=== PATIENT | female | born 1945 | race Caucasian/White ===

== ENCOUNTER 2023-07-29 19:16 | Emergency (ER) | payer MEDICARE, SELFPAY ==
[2023-07-29 19:19] VITALS: BP 170/97; PULSE 62; RESP 16; TEMP 36.8; O2SAT 100; BMI 25.4
--- NOTE | 2023-07-29 19:29 | CT_ITS ---
The [address] [address] Patient Name: DEXTER MCCARTHY MRN: [id number] date: 1945 Sex: F Assigned Patient Location: ED.MAIN Current Patient Location: ER Accession/Order Number: [id number] Exam Date: 07/29/2023 19:49 Report Date: 07/29/2023 20:18 At the request of: GLORIA BARKER Procedure: CT lumbar spine wo con EXAM: CT lumbar spine wo con HISTORY: fall, low back injury/pain COMPARISON: None. TECHNIQUE: Unenhanced axial CT of the lumbar spine is performed with coronal and sagittal reformats provided. FINDINGS: Grade 1 anterolisthesis at L4-5. Vertebral body heights are maintained. Vacuum disc phenomenon at L3-4 and L4-5. No acute fracture. Sacroiliac joints are maintained with moderate degenerative changes. Dense calcific atherosclerosis of the abdominal aorta and the splenic artery. Paraspinal soft tissues are within normal limits. Multilevel degenerative disc disease. Disc levels: T12-L1: Unremarkable. L1-2: Unremarkable. L2-3: Subtle disc bulge effaces the ventral thecal sac resulting in mild spinal canal narrowing. Bilateral facet arthrosis. Mild bilateral foraminal narrowing. L3-4: Bilateral facet arthrosis and hypertrophy of the ligament of flavum. Small disc bulge effaces the ventral thecal sac resulting in moderate severe spinal canal narrowing. There is mild left and [id number] right foraminal narrowing. L4-5: Grade 1 anterolisthesis. Bilateral facet arthrosis and hypertrophy and ligament flavum. Disc uncovering resulting in severe spinal canal narrowing and moderate bilateral foraminal narrowing. L5-S1: Disc bulge with bilateral facet arthrosis and hypertrophy of ligamentum flavum resulting in moderate severe spinal canal narrowing. There is mild left and moderate right foraminal narrowing. CT/CT lumbar spine wo con IMPRESSION: No acute osseous abnormality of the lumbar spine. Multilevel degenerative disc disease most severe at L4-5 where there is grade 1 anterolisthesis and discogenic coverage resulting in severe spinal canal narrowing. Electronically authenticated by: OLGA MERCADO Date: 07/29/2023 20:18
--- NOTE | 2023-07-29 19:31 | ED.BACK1 ---
HPI - Back Pain/Injury General Chief Complaint: Back Pain/Injury Stated Complaint: back pain Time Seen by Provider: 07/29/23 19:23 Source: patient Mode of arrival: ambulance Limitations: no limitations History of Present Illness HPI Narrative: Patient lost her footing and fell down 7 stairs at her home about one week ago. She already had chronic low back pain, for which she had been seen by pain management last month, and this fall seemed to worsen her chronic pain - she localizes the pain to the right sacrum. She said that she saw her PCP after the fall but no xrays or other images were ordered/obtained and she did not get any prescriptions. She said that she has an appointment with them tomorrow, which she scheduled yesterday after the pain worsened. Pain is localized to the lower back, right sacrum and right buttock with radiation into the right thigh. Hany she called 911 to have EMS bring her to the ED because it hurt to much to walk hany. We have a list of her meds but she told that she pick(s) and choose(s) what I take and when and I don't take evertything they prescribed med . However she is adamant that she is not taking anything for pain. On questioning she said that she finished a course of prednisone within the last week or two. Related Data Home Medications Medication Instructions Recorded Confirmed amoxicillin 500 mg-potassium 1 tab PO Q12H 07/29/23 07/29/23 clavulanate 125 mg tablet atorvastatin 10 mg tablet 10 mg PO DAILY 07/29/23 07/29/23 gabapentin 100 mg capsule 200 mg PO Q8H 07/29/23 07/29/23 levothyroxine 75 mcg tablet 75 mcg PO DAILY 07/29/23 07/29/23 lidocaine 5 % topical patch 1 patch topical Q24H 07/29/23 07/29/23 metoprolol succinate 25 mg 25 mg PO DAILY 07/29/23 07/29/23 tablet,extended release 24 hr omeprazole 40 mg capsule,delayed 40 mg PO DAILY 07/29/23 07/29/23 release Previous Rx's Medication Instructions Recorded methocarbamol 750 mg tablet 750 mg PO Q6H PRN pain #30 tabs 07/29/23 nabumetone 750 mg tablet 750 mg PO BID PRN pain #14 tabs 07/29/23 Allergies Allergy/AdvReac Type Severity Reaction Status Date / Time No Known Drug Allergies Allergy Verified 07/29/23 19:29 PFSH PFS Social History Smoking status: Never smoker Exam Narrative Exam Narrative: General: Alert, no acute distress, patient resting comfortably Skin: warm, intact, no pallor noted Head: Normocephalic, atraumatic Eye: Normal conjunctiva Respiratory: No acute distress Abdomen: Normal bowel sounds, soft, nontender, no masses detected. No rebound, guarding, or rigidity noted. Back: inspection of the back shows no obvious deformity, no swelling, no ecchymosis, contusion, abrasion, swelling, erythema, fluctuance or induration. Tenderness noted to midline lower lumbar, right sacrum and mid right buttock. Straight leg raise on left is negative. Straight leg raise on right is positive No CVA tenderness noted bilaterally. Musculoskeletal: No deformity noted to bilateral lower extremities. no cyanosis or mottling noted. normal pulses at DP and PT 2+ bilaterally and symmetrically. Normal 5/5 strength at ankles with dorsiflexion and plantar flexion. Normal sensation noted to both lower extremities. Neurological: AAOx4, normal sensory and motor observed. L5-S1 reflexes intact symmetrically. DTR 2+ at patellar bilaterally. Psychiatric: Cooperative and interactive. Constitutional Vital Signs, click to edit/add: Last Vital Signs Temp 98.2 F 07/29/23 19:19 Pulse 95 H 07/29/23 20:17 Resp 20 07/29/23 20:17 BP 170/97 H 07/29/23 19:19 Pulse Ox 96 07/29/23 20:17 O2 Del Method Room Air 07/29/23 19:19 Course Vital Signs Vital signs: Vital Signs Temperature 98.2 F 07/29/23 19:19 Pulse Rate 62 07/29/23 19:19 Respiratory Rate 16 07/29/23 19:19 Blood Pressure 170/97 H 07/29/23 19:19 Pulse Oximetry 100 07/29/23 19:19 Oxygen Delivery Method Room Air 07/29/23 19:19 Temperature 98.2 F 07/29/23 19:19 Pulse Rate 95 H 07/29/23 20:17 Respiratory Rate 20 07/29/23 20:17 Blood Pressure 170/97 H 07/29/23 19:19 Pulse Oximetry 96 07/29/23 20:17 Oxygen Delivery Method Room Air 07/29/23 19:19 MDM - Back Pain/Injury MDM Narrative Medical decision making narrative: No neurological deficits noted on exam. Patient sent for CT Lumbar spine. She was given IM Solumedrol. The patient was found to have degenerative disc disease of the lumber spine without an acute fracture or other worrisome findings that require admission or emergent neurosurgical referral. Patient informed of results, received a dose of oral toradol and robaxin before being discharged with a course of relafen and robaxin. She just had a course of steroids within the last few weeks so aside from the IM Solumedrol she received in the ED, I did not prescribe any additional steroid for home use. She was encouraged to keep tomorrow's appointment with the PCP. Imaging Data ct lumbar spine: Radiologist's impression: Patient Name: DEXTER MCCARTHY MRN: [id number] date: 1945 Sex: F Assigned Patient Location: ED.MAIN Current Patient Location: ER Accession/Order Number: [id number] Exam Date: 07/29/2023 19:49 Report Date: 07/29/2023 20:18 At the request of: GLORIA BARKER Procedure: CT lumbar spine wo con EXAM: CT lumbar spine wo con HISTORY: fall, low back injury/pain COMPARISON: None. TECHNIQUE: Unenhanced axial CT of the lumbar spine is performed with coronal and sagittal reformats provided. FINDINGS: Grade 1 anterolisthesis at L4-5. Vertebral body heights are maintained. Vacuum disc phenomenon at L3-4 and L4-5. No acute fracture. Sacroiliac joints are maintained with moderate degenerative changes. Dense calcific atherosclerosis of the abdominal aorta and the splenic artery. Paraspinal soft tissues are within normal limits. Multilevel degenerative disc disease. Disc levels: T12-L1: Unremarkable. L1-2: Unremarkable. L2-3: Subtle disc bulge effaces the ventral thecal sac resulting in mild spinal canal narrowing. Bilateral facet arthrosis. Mild bilateral foraminal narrowing. L3-4: Bilateral facet arthrosis and hypertrophy of the ligament of flavum. Small disc bulge effaces the ventral thecal sac resulting in moderate severe spinal canal narrowing. There is mild left and [id number] right foraminal narrowing. L4-5: Grade 1 anterolisthesis. Bilateral facet arthrosis and hypertrophy and ligament flavum. Disc uncovering resulting in severe spinal canal narrowing and moderate bilateral foraminal narrowing. L5-S1: Disc bulge with bilateral facet arthrosis and hypertrophy of ligamentum flavum resulting in moderate severe spinal canal narrowing. There is mild left and moderate right foraminal narrowing. IMPRESSION: No acute osseous abnormality of the lumbar spine. Multilevel degenerative disc disease most severe at L4-5 where there is grade 1 anterolisthesis and discogenic coverage resulting in severe spinal canal narrowing. Electronically authenticated by: OLGA MERCADO Date: 07/29/2023 20:18 Discharge Plan Discharge Chief Complaint: Back Pain/Injury Clinical Impression: Low back pain, DDD (degenerative disc disease), lumbar Patient Disposition: Home, Self-Care Time of Disposition Decision: 20:25 Prescriptions / Home Meds: New nabumetone 750 mg tablet 750 mg PO BID PRN (Reason: pain) Qty: 14 0RF methocarbamol 750 mg tablet 750 mg PO Q6H PRN (Reason: pain) Qty: 30 0RF No Action atorvastatin 10 mg tablet 10 mg PO DAILY metoprolol succinate 25 mg tablet extended release 24 hr 25 mg PO DAILY levothyroxine 75 mcg tablet 75 mcg PO DAILY amoxicillin-pot clavulanate 500-125 mg tablet 1 tab PO Q12H gabapentin 100 mg capsule 200 mg PO Q8H lidocaine 5 % adhesive patch,medicated 1 patch topical Q24H omeprazole 40 mg capsule,delayed release(DR/EC) 40 mg PO DAILY Instructions: Acute Low Back Pain (ED), Degenerative Disc Disease (ED) Stand Alone Forms: Portal Instructions Referrals: Physician,Non-Staff, MD [Physician] - 1 week Discharge Date/Time: 07/29/23 20:59
[2023-07-29] MEDS: METHYLPREDNISOLONE SOD SUCC PF 125 MG/2 ML VIAL IM (19:41)
[2023-07-29 20:17] VITALS: PULSE 95; RESP 20; O2SAT 96
[2023-07-29] MEDS: KETOROLAC TROMETHAMINE 10 MG TABLET PO (20:50)
[2023-07-29] MEDS: METHOCARBAMOL 500 MG TABLET PO (20:51)
== END 2023-07-29 20:59 | disposition home or self-care (01) ==
PROVIDERS: Emergency Provider Emergency Medicine; PCP Family Medicine
DX: M51.36 Other intervertebral disc degeneration, lumbar region (principal); M54.50 Low back pain, unspecified; G89.29 Other chronic pain; Z79.899 Other long term (current) drug therapy
CPT/HCPCS: 72131; 96372; 99285; J2930

== ENCOUNTER 2023-09-13 11:14 | Outpatient (OUT) | payer MEDICARE, SELFPAY ==
--- OUTSIDE RECORDS SUMMARY | 2023-09-13 11:18 | XMS_ITS | CCD ---
Author Name Unknown Address [address] [facility] [address] [place] [address] Organization [facility] Care Team Providers Care Inspector Quality Assurance Name Role Phone Ap Holland Unavailable FABIENNE Briscoe Primary Care Provider MD Ap Holland Attending Provider Ap Holland Attending Unavailable Ap Holland Admitting Unavailable Roslyn Briscoe Primary Care Unavailable ANJALI MAK Attending Unavailable ANJALI MAK Attending Unavailable VAHID, ROSLYN Overton Attending Unavailab le VAHID, ROSLYN Overton Attending Unavailab le VAHID, ROSLYN Overton Attending Unavailab le VAHID, ROSLYN Overton Attending Unavailab le VAHID, ROSLYN Overton Referring Unavailab PIERRE Macario Attending Unavailab le VAHID, ROSLYN Overton Attending Unavailab sharan Allergies Allergy Classification Reported Allergen(s) Allergy Type Date of Onset Reaction(s) Facility (7 sources) Pollen Drug allergy Unknown [facility] Other Medications Current Medications Medication Drug Class(es) Dates Sig (Normalized) Sig (Original) atorvastatin 10 mg oral tablet (7 sources) HMG-CoA Reductase Inhibitor take 1 tablet by mouth every twenty-four hours Atorvastatin Calcium 10 MG 1 tablet Orally Once a day Active levothyroxine sodium 0.075 mg oral tablet (7 sources) l-Thyroxine take 1 tablet by mouth once daily in the morning Levothyroxine Sodium 75 MCG 1 tablet in the morning on an empty stomach Orally Once a day Active lidocaine 0.05 mg/mg medicated patch (7 sources) Antiarrhythmic, Amide Local Anesthetic Lidocaine 5 % 1 patch remove after 12 hours Externally Once a day Active metoprolol tartrate 50 mg oral tablet (7 sources) beta-Adrenergic Ilene take 1 capsule by mouth once daily Metoprolol Succinate 50 MG 1 capsule Orally Once a day Active omeprazole 40 mg delayed release oral capsule (7 sources) Proton Pump Inhibitor take 1 capsule by mouth once daily Omeprazole 40 MG 1 capsule 30 minutes before morning meal Orally Once a day Active Problems Problem Classification Problem Date Documented Date Episodic/Chronic Osteoarthritis (8 sources) Localized, primary osteoarthritis of the pelvic region and thigh; Translations: [Unilateral primary osteoarthritis, right hip] Chronic Other nervous system disorders (7 sources) Chronic pain; Translations: [Other chronic pain] Chronic Other nervous system disorders (4 sources) Other chronic pain Chronic Other non-traumatic joint disorders (1 source) Pain in right hip Episodic Spondylosis; intervertebral disc disorders; other back problems (20 sources) Solitary sacroiliitis; Translations: [Sacroiliitis, not elsewhere classified] Chronic Spondylosis; intervertebral disc disorders; other back problems (8 sources) Radiculopathy, lumbar region; Translations: [Lumbar radiculopathy] Episodic Unclassified (1 source) Pain in right hip; Translations: [Pain in right hip] Onset: 05-10-2023 Results Test Name Value Interpretation Reference Range Facil ity CT HEAD WO IV CONTRASTon CT HEAD WO IV CONTRAST EXAM: CT HEAD WO IV CONTRAST DATE: 07/20/2023 11:20 AM CLINICAL HISTORY: fall downstairs, dizziness, blurred vision, double vision. TECHNIQUE: Multiple images axial images were obtained without contrast administration. 3-D sagittal and coronal reconstructions were performed. All CT scans at this facility use dose modulation, iterative reconstruction, and/or weight based dosing when appropriate to reduce radiation dose to as low as reasonably achievable. COMPARISON: Brain MRI from June 04, 2023 FINDINGS: There is no evidence of acute hemorrhage, mass effect or edema. There are no extra-axial collections or space-occupying lesions. There is no midline shift. There is no evidence of acute ischemia, loss of pena-white matter differentiation or hypodense lesion. There is moderate prominence of sulci and ventricles similar to the previous study indicating global cerebral atrophy. There are moderate periventricular white matter hypodensities which are most commonly associated with chronic microangiopathy. The midline structures are intact. The region of the pineal gland and the pituitary gland are within normal limits. The posterior fossa is unremarkable, the craniovertebral junction is within normal limits. The orbits demonstrate no intra or extraconal lesions. The globes are intact. The visualized portions of paranasal sinuses are unremarkable. The visualized portions of the mastoid air cells are within normal limits. The calvarium is unremarkable. IMPRESSION: There are no acute intracranial changes. There are chronic global evolutional changes and atrophy. ELECTRONICALLY SIGNED BY: Chace Grider MD Normal Not Available MR BRAIN WO CONTRASTon 06-04 MR BRAIN WO CONTRAST EXAMINATION: MR BRAIN WO CONTRAST CLINICAL HISTORY: peristant dizziness COMPARISONS: None TECHNIQUE: Multiplanar multisequence images of the brain were obtained without contrast. Diffusion perfusion imaging was obtained. BRAIN MRI FINDINGS: There are no extra-axial collections. There is no evidence of hemorrhage. There are no areas of perfusion diffusion signal abnormality to suggest ischemia. The susceptibility images do not demonstrate evidence of hemosiderin deposition within the brain parenchyma or the leptomeninges. There is preservation of the pena-white matter differentiation. 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 There is prominence of the sulci and ventricles consistent with moderate global cerebral atrophy and chronic involutional changes. The midline structures are intact, the corpus callosum is within normal limits. The region of the pineal gland is within normal limits. There is the appearance of an empty sella which may be secondary to pituitary atrophy. There are no space-occupying lesions in the posterior fossa. The basilar cisterns are patent. The craniocervical junction is unremarkable. The visualized portions of the orbits are within normal limits, the globes are intact. The visualized portions of the paranasal sinuses are within normal limits. There is a small right mastoid effusion. The calvarium and soft tissues are unremarkable. IMPRESSION: There are severe chronic involutional changes including atrophy and scattered areas of increased T2/STIR signal, usually associated with chronic microangiopathy. There there is no acute hemorrhage or ischemia. ELECTRONICALLY SIGNED BY: Chace Grider MD Normal Not Available XR hip RT min 2V(w/wo pelvis )*on 05-10-2023 XR hip RT min 2V(w/wo pelvis)* [facility] [place] [address] [place] [address] XRay Report Signed Patient: Yvonne Mccarthy MR#: [id number] 15 : 1945 Acct:[id number] Age/Sex: 77 / F ADM Date: 05/10/23 Loc: XD Room: Type: [facility] Attending Dr: Ap Holland MD Copies to: Ap Holland MD Ordering Provider: Ap Holland MD Date of Service: 05/10/23 XR/XR hip RT min 2V(w/wo pelvis)*: M25.551 2 views RIGHT plain film COMPARISON: None HISTORY: RIGHT hip pain with radiation down the RIGHT leg. ACUTE FINDINGS: None DEGENERATIVE CHANGE: Minor RIGHT hip degeneration. Adequate articular surface. Extensive RIGHT SI joint degenerative change. Extensive lower lumbar degenerative change. 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 Mild RIGHT hip degeneration. Diffuse osteopenia. Impression dictated by: Nick Stokes M.D.05/10/2023 3:23 PM Dictation Location: [place] [address] Transcribed By: [facility] 05/10/23 152 Dictated By: Nick Stokes DO 05/10/23 1521 Signed By: 05/10/23 1523 [facility] XR Spine Lumbar Complete w/F maxi AND [place] 12-10-2022 XR Spine Lumbar Complete w/Flex AND Ext Mild scoliosis with convexity to left apex L3. Vertebral bodies normal in height. 7.4 mm anterolisthesis L3 on L4 in neutral position, 6.4 mm on extension, and 6 mm on flexion. 5.8 mm anterolisthesis L4 on L5 in neutral position, 5.0 mm on extension, and 7 mm on flexion. Posterior disc space narrowing L1-L2 with diffuse disc space narrowing L2-L3 through L4-L5. Posterior disc space narrowing L5-S1. No fracture. No bone lesion. IMPRESSION: Grade 1 L3 and grade 1 L4 spondylolisthesis, with moderate to marked degenerative change lumbar spine. Report reported and signed by Roosevelt Motley on 12/10/2022 1457 Normal [facility] XR Hip Complete Right*on XR Hip Complete Right* HISTORY: Posterior hip radiating pain falls x 2 years FINDINGS: Mild bilateral superior medial hip joint space loss. No pincer or CAM deformities. Prominent arterial calcifications. IMPRESSION: 1. 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 Report reported and signed by Bonilla Mckeon on 04/29/2022 1031 Normal [facility] Complete Blood Count with Au to Diffon 01-13-2022 Basophils (Bld) [#/Vol] 0.06 10*3/uL Normal 0.00-0.20 [facility] Comment on above: Performed By: #### V ITD, CMP, TSH reflex FT4, CBCAD, FE Prof #### [facility] [address] [place], [place] [id number] Basophils/100 WBC (Bld) 1.3 % Normal [facility] Special[facility] Comment on above: Performed By: #### V ITD, CMP, TSH reflex FT4, CBCAD, FE Prof #### [facility] [address] [place], [place] [id number] Eosinophils (Bld) [#/Vol] 0.36 10*3/uL Normal 0.02-0.50 [facility] Comment on above: Performed By: #### V ITD, CMP, TSH reflex FT4, CBCAD, FE Prof #### [facility] [address] [place], [place] [id number] Eosinophils/100 WBC (Bld) 7.6 % Normal [facility] Comment on above: Performed By: #### V ITD, CMP, TSH reflex FT4, CBCAD, FE Prof #### [facility] [address] [place], [place] [id number] Erythrocyte distribution width (RBC) [Ratio] 12.1 % Normal 11.0-15.0 [facility] Comment on above: Performed By: #### V ITD, CMP, TSH reflex FT4, CBCAD, FE Prof #### [facility] [address] [place], [place] [id number] Hematocrit (Bld) [Volume fraction] 34.0 % Low 35.0-47.0 [employer] [place] [employer] Member Comment on above: Performed By: #### V ITD, CMP, TSH reflex FT4, CBCAD, FE Prof #### [facility] [address] [place], [place] [id number] Hemoglobin (Bld) [Mass/Vol] 11.9 g/dL Normal 11.6-15.5 [facility] Comment on above: Performed By: #### V ITD, CMP, TSH reflex FT4, CBCAD, FE Prof #### [facility] [address] [place], [place] [id number] Lymphocytes (Bld) [#/Vol] 1.2 10*3/uL Normal 0.9-3.9 [facility] Comment on above: Performed By: #### V ITD, CMP, TSH reflex FT4, CBCAD, FE Prof #### [facility] [address] [place], [place] [id number] Lymphocytes/100 WBC (Bld) 26.1 % Normal [facility] Special[facility] Comment on above: Performed By: #### V ITD, CMP, TSH reflex FT4, CBCAD, FE Prof #### [facility] [address] [place], [place] [id number] MCH (RBC) [Entitic mass] 34.0 pg High 27.0-33.0 [facility] [employer] Team Member Comment on above: Performed By: #### V ITD, CMP, TSH reflex FT4, CBCAD, FE Prof #### [facility] [address] [place], [place] [id number] MCHC (RBC) [Mass/Vol] 35.0 g/dL Normal 32.0-36.0 [facility] [employer] Team Member Comment on above: Performed By: #### V ITD, CMP, TSH reflex FT4, CBCAD, FE Prof #### [facility] [address] [place], [place] [id number] MCV (RBC) [Entitic vol] 97 fL Normal 80-100 [facility] [employer] Member Comment on above: Performed By: #### V ITD, CMP, TSH reflex FT4, CBCAD, FE Prof #### [facility] [address] [place], [place] [id number] Monocytes (Bld) [#/Vol] 0.4 10*3/uL Normal 0.2-0.9 [employer] [place] [employer] Member Comment on above: Performed By: #### V ITD, CMP, TSH reflex FT4, CBCAD, FE Prof #### [facility] [address] [place], [place] [id number] Monocytes/100 WBC (Bld) 8.9 % Normal [facility] Special[facility] Comment on above: Performed By: #### V ITD, CMP, TSH reflex FT4, CBCAD, FE Prof #### [facility] [address] [place], [place] [id number] Neutrophils (Bld) [#/Vol] 2.6 10*3/uL Normal 1.5-7.8 [facility] Comment on above: Performed By: #### V ITD, CMP, TSH reflex FT4, CBCAD, FE Prof #### [facility] [address] [place], [place] [id number] Neutrophils/100 WBC (Bld) 55.9 % Normal [facility] Special[facility] Comment on above: Performed By: #### V ITD, CMP, TSH reflex FT4, CBCAD, FE Prof #### [facility] [address] [place], [place] [id number] Platelet mean volume (Bld) [Entitic vol] 11.00 fL Normal 7.50-12.50 [facility] [employer] Member Comment on above: Performed By: #### V ITD, CMP, TSH reflex FT4, CBCAD, FE Prof #### [facility] [address] [place], [place] [id number] Platelets (Bld) [#/Vol] 102 10*3/uL Low 140-400 [facility] [employer] Member Comment on above: Performed By: #### V ITD, CMP, TSH reflex FT4, CBCAD, FE Prof #### [facility] [address] [place], [place] [id number] RBC (Bld) [#/Vol] 3.50 10*6/uL Low 3.90-5.20 [facility] [employer] Team Member Comment on above: Performed By: #### V ITD, CMP, TSH reflex FT4, CBCAD, FE Prof #### [facility] [address] [place], [place] [id number] RDW-SD 42.1 fL Normal 37.0-50.0 [facility] [employer] Member Comment on above: Performed By: #### V ITD, CMP, TSH reflex FT4, CBCAD, FE Prof #### [facility] [address] [place], [place] [id number] WBC (Bld) [#/Vol] 4.7 10*3/uL Normal 3.8-11.0 [place] [employer] Member Comment on above: Performed By: #### V ITD, CMP, TSH reflex FT4, CBCAD, FE Prof #### [facility] [address] [place], [place] [id number] Comprehensive Metabolic Pane [facility] 01-13-2022 Albumin [Mass/Vol] 4.2 g/dL Normal 3.6-5.1 [place] [employer] Member Comment on above: Performed By: #### V ITD, CMP, TSH reflex FT4, CBCAD, FE Prof #### [facility] [address] [place], [place] [id number] Albumin/Globulin [Mass ratio] 1.8 {ratio} Normal 1.0-2.5 [facility] [employer] Member Comment on above: Performed By: #### V ITD, CMP, TSH reflex FT4, CBCAD, FE Prof #### [facility] [address] [place], [place] [id number] ALP [Catalytic activity/Vol] 83 U/L Normal 35-119 [facility] [employer] Member Comment on above: Performed By: #### V ITD, CMP, TSH reflex FT4, CBCAD, FE Prof #### [facility] [address] [place], [place] [id number] ALT [Catalytic activity/Vol] 28 U/L Normal 6-33 [facility] [employer] Member Comment on above: Result Comment: 07/09 Female reference range changed. Performed By: #### V ITD, CMP, TSH reflex FT4, CBCAD, FE Prof #### [facility] [address] [place], [place] [id number] Anion gap [Moles/Vol] 12 mmol/L Normal 12-20 [facility] [employer] Member Comment on above: Result Comment: Effe ctive 08/14/2019 reference range changed. Performed By: #### V ITD, CMP, TSH reflex FT4, CBCAD, FE Prof #### [facility] [address] [place], [place] [id number] AST [Catalytic activity/Vol] 36 U/L High 9-34 [facility] Comment on above: Performed By: #### V ITD, CMP, TSH reflex FT4, CBCAD, FE Prof #### [facility] [address] [place], [place] [id number] Bilirubin [Mass/Vol] 0.48 mg/dL Normal 0.30-1.20 [facility] Comment on above: Performed By: #### V ITD, CMP, TSH reflex FT4, CBCAD, FE Prof #### [facility] [address] [place], [place] [id number] BUN/CREA 19 Ratio Normal 6-22 [facility] Comment on above: Performed By: #### V ITD, CMP, TSH reflex FT4, CBCAD, FE Prof #### [facility] [address] [place], [place] [id number] Calcium [Mass/Vol] 9.5 mg/dL Normal 8.6-10.2 [facility] Comment on above: Performed By: #### V ITD, CMP, TSH reflex FT4, CBCAD, FE Prof #### [facility] [address] [place], [place] [id number] Chloride [Moles/Vol] 105 mmol/L Normal 98-107 [facility] Comment on above: Performed By: #### V ITD, CMP, TSH reflex FT4, CBCAD, FE Prof #### [facility] [address] [place], [place] [id number] CO2 [Moles/Vol] 27 mmol/L Normal 20-31 [facility] Comment on above: Performed By: #### V ITD, CMP, TSH reflex FT4, CBCAD, FE Prof #### [facility] [address] [place], [place] [id number] Creatinine [Mass/Vol] 1.0 mg/dL Normal 0.6-1.4 [facility] Comment on above: Performed By: #### V ITD, CMP, TSH reflex FT4, CBCAD, FE Prof #### [facility] [address] [place], [place] [id number] eGFRAA 67 mL/min/1.73m2 Normal >60 [employer] [place] [employer] Member Comment on above: Performed By: #### V ITD, CMP, TSH reflex FT4, CBCAD, FE Prof #### [facility] [address] [place], [place] [id number] eGFRNAA 55 mL/min/1.73m2 Low >60 [facility] [employer] Member Comment on above: Performed By: #### V ITD, CMP, TSH reflex FT4, CBCAD, FE Prof #### [facility] [address] [place], [place] [id number] Globulin (S) [Mass/Vol] 2.3 g/dL Normal 1.9-3.7 [facility] [employer] Member Comment on above: Performed By: #### V ITD, CMP, TSH reflex FT4, CBCAD, FE Prof #### [facility] [address] [place], [place] [id number] Glucose [Mass/Vol] 85 mg/dL Normal 65-99 [facility] [employer] Member Comment on above: Result Comment: For FASTING Glucose --- ADA reference ranges: Normal 65-99 mg/dl Prediabetes 100-125 Diabetes >/= 126 Performed By: #### V ITD, CMP, TSH reflex FT4, CBCAD, FE Prof #### [facility] [address] [place], [place] [id number] Potassium [Moles/Vol] 3.8 mmol/L Normal 3.5-5.5 [facility] [employer] Member Comment on above: Performed By: #### V ITD, CMP, TSH reflex FT4, CBCAD, FE Prof #### [facility] [address] [place], [place] [id number] Protein [Mass/Vol] 6.5 g/dL Normal 6.1-8.1 [employer] [place] [employer] Member Comment on above: Performed By: #### V ITD, CMP, TSH reflex FT4, CBCAD, FE Prof #### [facility] [address] [place], [place] [id number] Sodium [Moles/Vol] 140 mmol/L Normal 135-146 [employer] [place] [employer] Member Comment on above: Performed By: #### V ITD, CMP, TSH reflex FT4, CBCAD, FE Prof #### [facility] [address] [place], [place] [id number] Urea nitrogen [Mass/Vol] 19 mg/dL Normal 7-25 [facility] Comment on above: Performed By: #### V ITD, CMP, TSH reflex FT4, CBCAD, FE Prof #### [facility] [address] [place], [place] [id number] Iron Profileon 01-13-2022 %FESAT 45 % Normal 11-50 [facility] Comment on above: Performed By: #### V ITD, CMP, TSH reflex FT4, CBCAD, FE Prof #### [facility] [address] [place], [place] [id number] FE 129 ug/dL Normal 40-190 [facility] Special[facility] Comment on above: Result Comment: Refe rence range change 06/25/2017. Prior reference range F 37-145 ug/dL, M 59-158 ug/dL. Performed By: #### V ITD, CMP, TSH reflex FT4, CBCAD, FE Prof #### [facility] [address] [place], [place] [id number] TIBC 284 ug/dL Normal 250-450 [facility] Special[facility] Comment on above: Performed By: #### V ITD, CMP, TSH reflex FT4, CBCAD, FE Prof #### [facility] [address] [place], [place] [id number] UIBC 155 ug/dL Normal 112-347 [facility] Special[facility] Comment on above: Performed By: #### V ITD, CMP, TSH reflex FT4, CBCAD, FE Prof #### [facility] [address] [place], [place] [id number] TSH w/ Reflex to Free T4on 0 01-13-2022 TSH 3.100 uIU/mL Normal 0.400-4.500 [facility] [employer] Team Member Comment on above: Performed By: #### V ITD, CMP, TSH reflex FT4, CBCAD, FE Prof #### [facility] [address] [place], [place] [id number] US Venous, Bilateral, Lower [place] 01-13-2022 US Venous, Bilateral, Lower Ext HISTORY: Bilateral leg swelling FINDINGS: The deep venous system of the bilateral lower extremities exhibit full compressibility and normal flow augmentation. These specifically include the common femoral, superficial femoral, popliteal and visualization anterior tibialis, posterior tibialis and peroneal veins. No evidence of deep venous thrombosis is present. Greater saphenous vein is patent. No cystic or soft tissue mass in the popliteal fossa. IMPRESSION: No evidence of deep or superficial venous thrombosis. Report reported and signed by Bonilla Mckeon on 01/13/2022 1441 Normal [facility] Special[facility] Vitamin B12/Folateon 022 Cobalamin (Vitamin B12) [Mass/Vol] 258 pg/mL Normal 211-946 [facility] Special[facility] Comment on above: Performed By: #### B 12/Fol #### [facility] [address] [place], [place] [id number] FOL 11.6 ng/mL Normal >4.7 [facility] Special[facility] Comment on above: Result Comment: Refe rence range change 06/25/2017. Prior reference range F 4.8-37.3 ng/mL, M 4.5-32.2 ng/mL. Performed By: #### B 12/Fol #### [facility] [address] [place], [place] [id number] Vitamin D 25-OHon 01-13-2022 VIT D 25 OH 30 ng/ml Normal >29 [facility] Specialist Comment on above: Result Comment: Ching min D Status Deficiency <20 ng/mL Insufficiency 20-29 ng/mL Optimal 30-100 ng/mL Possible Toxicity >=150 ng/mL Performed By: #### V ITD, CMP, TSH reflex FT4, CBCAD, FE Prof #### [facility] [address] [place], [place] [id number] Vital Signs Date Time Vital Sign Value Performing Clinician Facility 05-10-2023 10:45-0400 Body height 162.56 cm Ap Skyler Other [facility] Other 05-10-2023 10:45-0400 Body mass index (BMI) [Ratio] 25.4 kg/m2 Ap Holland Other [facility] Other 05-10-2023 10:45-0400 Body weight 67.13 kg Ap Holland Other [facility] Other 05-10-2023 10:45-0400 Diastolic blood pressure 80 mm[Hg] Pa Skyler Other [facility] Other 05-10-2023 10:45-0400 Systolic blood pressure 122 mm[Hg] Ap Skyler Other [facility] Other 04-06-2023 11:15-0400 Body height 162.56 cm Ap Skyler Other [facility] Other 04-06-2023 11:15-0400 Body mass index (BMI) [Ratio] 26.09 kg/m2 Ap Skyler Other [facility] Other 04-06-2023 11:15-0400 Body weight 68.95 kg Ap Skyler Other [facility] Other 04-06-2023 11:15-0400 Diastolic blood pressure 84 mm[Hg] Ap Skyler Other [facility] Other 04-06-2023 11:15-0400 Systolic blood pressure 124 mm[Hg] Ap Skyler Other [facility] Other 03-23-2023 11:30-0400 Body height 162.56 cm Ap Skyler Other [facility] Other 03-23-2023 11:30-0400 Body mass index (BMI) [Ratio] 26.09 kg/m2 Ap Skyler Other [facility] Other 03-23-2023 11:30-0400 Body weight 68.95 kg Ap Skyler Other [facility] Other 03-23-2023 11:30-0400 Diastolic blood pressure 84 mm[Hg] Ap Holland Other [facility] Other 03-23-2023 11:30-0400 Systolic blood pressure 140 mm[Hg] Ap Skyler Other [facility] Other 03-08-2023 09:00-0400 Body height 162.56 cm Ap Skyler Other [facility] Other 03-08-2023 09:00-0400 Body mass index (BMI) [Ratio] 26.74 kg/m2 Ap Skyler Other [facility] Other 03-08-2023 09:00-0400 Body weight 70.67 kg Ap Skyler Other [facility] Other 03-08-2023 09:00-0400 Diastolic blood pressure 80 mm[Hg] Apkalin Holland Other [facility] Other 03-08-2023 09:00-0400 SaO2% (BldA) [Mass fraction] 99 % Ap Skyler Other [facility] Other 03-08-2023 09:00-0400 Systolic blood pressure 130 mm[Hg] Ap Skyler Other [facility] Other Encounters Encounter Date Encounter Type Care Provider Facility Start: 09-02-2023 End: 09-03-2023 ambulatory ROSLYN BRISCOE Not Available Start: 09-01-2023 End: 09-01-2023 ambulatory ANJALI B APLING Not Available Start: 08-18-2023 End: 08-18-2023 ambulatory ANJALI B APLING Not Available Start: 08-03-2023 End: 08-03-2023 ambulatory ROSLYNSTEVE MCCORMACKENTIARA Not Available Start: 07-28-2023 End: 07-28-2023 ambulatory PIERRE BOB Not Available Start: 07-20-2023 End: 07-21-2023 ambulatory ROSLYN A [place]G Not Available Start: 07-08-2023 End: 07-08-2023 ambulatory ROSLYN A HAOMAREN[place]G Not Available Start: 06-29-2023 End: 06-29-2023 ambulatory ROSLYN A [place] Not Available Start: 05-10-2023 Office outpatient vi sit 25 minutes Ap Duganky [facility] Start: 05-10-2023 End: 05-10-2023 ambulatory Ap Holland Facility:[facility] Start: 05-10-2023 End: 05-10-2023 ambulatory DERMATOPATHOLOGIST-C Roslyn Briscoe Work Phone: [facility] Work Phone: Start: 05-10-2023 End: 05-10-2023 Patient encounter procedure DERMATOPATHOLOGIST-C Roslyn Briscoe Work Phone: [facility] Work Phone: Start: 04-29-2023 (PROC) PROCEDURE Ap Holland [facility] Start: 04-29-2023 End: 04-29-2023 ambulatory Ap Holland Other [facility] Other Start: 04-06-2023 End: 04-06-2023 ambulatory Ap Holland Other [facility] Other Start: 04-06-2023 Office outpatient vi sit 25 minutes Ap Duganky [facility] Start: 03-23-2023 End: 03-23-2023 ambulatory Ap Holland Other [facility] Other Start: 03-23-2023 Office outpatient vi sit 15 minutes Ap Holland [facility] Start: 03-16-2023 (PROC) PROCEDURE Ap Hart [facility] Start: 03-16-2023 End: 03-16-2023 ambulatory Ap Holland Other [facility] Other Start: 03-09-2023 End: 03-09-2023 ambulatory Ap Holland Other [facility] Other Start: 03-09-2023 Telephone encounter Ap Holland [facility] Start: 03-08-2023 End: 03-08-2023 ambulatory Ap Holland Other [facility] Other Start: 03-08-2023 Office consultation new/estab patient 60 min Ap Holland [facility] Procedures Date Procedure Procedure Detail Performing Clinician Start: 05-10-2023 Plain X-ray of right hip DERMATOPATHOLOGIST-C Roslyn Briscoe Work Phone: Payers Date Payer Category Payer Self-pay 2021 Medicare [id number] 2. [id number] 1945 Unknown [id number] 2.16.84 [id number] 1945 Unknown [id number] 2.16.84 [id number] 1945 Unknown [id number] 2.16.84 [id number] 1945 Unknown [id number] 2.16.840 .[id number] 1945 Unknown [id number] 2.16.840 .[id number] 1945 Unknown [id number] 2.16.840 .[id number] 1945 Unknown [id number] 2.16.840 .[id number] 1945 Unknown [id number] 2.16.840 .[id number] 1945 Unknown [id number] 2.16.840 .[id number] Medicare [id number] 2.1 [id number] Unknown [id number] 2.16.8 [id number] Social History Date Type Detail Facility Sex Assigned At [facility] Other Start: 1945 Sex Assigned At Female F [facility] Evaluation note 05-10-2023 Note Date & Type Note Facility 05-10-2023 Evaluation note Encounter Date Diagnosis Assessment Notes May, Lumbar radiculopathy (ICD-10 - M54.16) Patient reports 50-60% pain relief following procedure. May, Right hip pain (ICD-10 - M25.551) 77 year old female here for follow up status post interlaminar epidural steroid injection at the L5-S1 level under fluoroscopic guidance. Patient reports 50-60% pain relief following procedure. She voices complaints of right hip pain with intermittent radiation down the right lower extremity. She feels pain is worse upon rising in the morning. Different treatment options were discussed in detail with patient in regards to patients condition. I recommend we proceed with an x-ray of the right hip to further evaluate her pain. We can discuss other interventional options in the future, if applicable. May, Lumbar degenerative disc disease (ICD-10 - M51.36) Stable. May, Sacroiliitis (ICD-10 - M46.1) Consider SI joint injections in the future if needed May, Lumbosacral spondylosis (ICD-10 - M47.817) Consider lumbar facet medial branch nerve blocks in the future if needed May, Chronic pain (ICD-10 - G89.29) Proceed with imaging of the right hip, follow up in 1 week for further evaluation. [facility] Other Evaluation note 04-06-2023 Note Date & Type Note Facility 04-06-2023 Evaluation note Encounter Date Diagnosis Assessment Notes Mar, Lumbar degenerative disc disease (ICD-10 - M51.36) Stable. Mar, Lumbar radiculopathy (ICD-10 - M54.16) 77 year old female here for follow up to discuss chronic pain. She voices complaints of low back and right buttock pain with radiation down the right lower extremity to the foot. Discussed with patient different treatment options, I recommend proceeding with a right L4, L5 transforaminal epidural steroid injection. Risks and benefits of procedure explained to patient; patient verbalizes understanding. Mar, Sacroiliitis (ICD-10 - M46.1) Consider SI joint injections in the future if needed Mar, Lumbosacral spondylosis (ICD-10 - M47.817) Consider lumbar facet medial branch nerve blocks in the future if needed Mar, Chronic pain (ICD-10 - G89.29) Proceed with treatment plan. [facility] Other Evaluation note 03-23-2023 Note Date & Type Note Facility 03-23-2023 Evaluation note Encounter Date Diagnosis Assessment Notes Mar, Lumbar degenerative disc disease (ICD-10 - M51.36) Stable, follow up as needed Mar, Lumbar radiculopathy (ICD-10 - M54.16) 77 year old female here for follow up status post right L4 and L5 transforaminal epidural steroid injection under fluoroscopic guidance. Patient reports 60-70% pain relief as well as improved walking, standing and daily functions following procedure. She continues to complain of some residual right lower extremity pain and numbness. She also complains of low back pain. I offered to proceed with a second epidural steroid injection to help capture more of her lower extremity pain however she currently feels her pain is manageable. She can continue her activities as tolerated and call the office should her pain become bothersome. Mar, Sacroiliitis (ICD-10 - M46.1) Consider SI joint injections in the future if needed Mar, Lumbosacral spondylosis (ICD-10 - M47.817) Consider lumbar facet medial branch nerve blocks in the future if needed Mar, Chronic pain (ICD-10 - G89.29) Follow up as needed [facility] Other Evaluation note 03-08-2023 Note Date & Type Note Facility 03-08-2023 Evaluation note Encounter Date Diagnosis Assessment Notes Feb, Lumbar radiculopathy (ICD-10 - M54.16) 77 y/o female here with complaints of low back pain with radiation down the outer aspect of the right lower extremity to the ankle. She states her pain started approx. 1 year ago with no known inciting trauma. She reports physical therapy within the last 6 months, which aggravated her pain. She currently uses heat, Tylenol and Advil but feels the medications are causing GI upset. She denies any prior back surgery. Prior to examining the patient, I reviewed progress notes from her referring provider Dr Briscoe. I also independently reviewed recent imaging of thelumbar spine which shows disc bulge with spinal stenosis as well as facet arthropathy. History, physical examination and available images are consistent with Lumbar DDD, Lumar Radiculopathy, Sacroiliitis and Lumbosacral Spondylosis. Anatomy of spine discussed in detail with patient in regards to patients condition. Patient is a candidate for a right L4,5 transforaminal epidural steroid injection under fluoroscopic guidance. Risks and benefits of procedure explained to patient; patient verbalizes understanding. Feb, Lumbar degenerative disc disease (ICD-10 - M51.36) Continue with current treatment plan Feb, Sacroiliitis (ICD-10 - M46.1) In the future if the pain persists, we can consider proceeding with a bilateral sacroiliac joint injection under fluoroscopic guidance. Feb, Lumbosacral spondylosis (ICD-10 - M47.817) In the future if the pain persists, we can consider proceeding with a bilateral lumbar facet MBB followed by a RFA if applicable under fluoroscopic guidance. Feb, Primary osteoarthritis of right hip (ICD-10 - M16.11) In the future if the pain persists, we can consider proceeding with a right hip & GT bursa injection under fluoroscopic guidance. Feb, Chronic pain (ICD-10 - G89.29) Follow up after procedure. Feb, Other Medical decision making shows a new problem to me with further workup planned or suggested with the potential for extensive treatment options that were considered with the most applicable given this patient's situation as noted above. Treatment options considered include a combination of physical therapy approaches, pharmacologic management, and interventional procedures. Those most applicable to the patient were discussed at this time. Risk of complications and/or morbidity and mortality is high given that acute and chronic pain poses a threat to life and bodily function if undertreated, poorly treated or with failure to maintain adequate treatment and timely followup. Given the serious and fluctuating nature of pain with extensive consideration for whenever pain changes, there always remains the possibility of prolonged functional impairment requiring constant patient reassessment and high-level medical decision making. The amount and complexity of data reviewed is high given that patient labs, radiology reports, and other test were obtained, reviewed and summarized as applicable from the physician portal and/or outside medical records. Pertinent positive and negative findings were considered in medical decision-making. [facility] Other Evaluation note Note Date & Type Note Facility Evaluation note No Information [facility] Other Evaluation note Note Date & Type Note Facility Evaluation note No assessment information availa [facility] Work Phone: History general Narrative - Reported Note Date & Type Note Facility History general Narrative - Reported Type Medical History hypercholestolemia Medical History stenosis [facility] Other Summary Purpose Family History No Family History Records FoundNo Family History Records FoundNo Family History Records Found Advance Directives No Advanced Directives Records Found Advance Directive Response Recorded Date/ Time Advance Directives No May 10, 2023 11:40am Chief Complaint and Reason for Visit Chief Complaint M25.551 Additional Source Comments INFORMATION SOURCE (unrecogn ized section and content) DATE CREATED AUTHOR 12/11/2022 [facility] Specialist DATE CREATED AUTHOR AUTHOR'S ORGANIZ ATION 05/15/2023 [facility] DATE CREATED AUTHOR AUTHOR'S ORGANIZ ATION 09/06/2023 [facility] dical Specialists EPIC REASON FOR VISIT (unrecogniz ed section and content) Referred by Roslyn [facility] for Lumbar spine stenosis and arthritis; MRI done NOMSNo InformationRIGHT L4,5 TRANSFORAMINAL EPIDURAL STEROID INJ/ELFOLLOW UP AFTER RIGHT LTRf/u increase in pain right hip into legL5-S1 EPIDURAL STEROID INJ/ELfollow up after LES Care Teams (unrecognized sec tion and content) Team Status: Active Member Role Status Dates Roslyn Briscoe NP-Natalie Primary Care Provider Activ jeimy Team Status: Inactive Member Role Status Dates Roslyn Briscoe NP-Natalie Primary Care Provider Activ jeimy Holland MD Attending Provider Active Goals (unrecognized section and content) Goals may be documented in a n alternate section FOR RECORDS PERTAINING TO PATIENTS WHO ARE OR HAVE BEEN ENROLLED IN A CHEMICAL DEPENDENCY/SUBSTANCEABUSE PROGRAM, SOME INFORMATION MAY BE OMITTED. This clinical summary was aggregated from multiple sources. Caution should be exercised in using it in the provision of clinical care. This summary normalizes information from multiple sources, and as a consequence, information in this document may materially change the coding, format and clinical context of patient data. In addition, data may be omitted in some cases. CLINICAL DECISIONS SHOULD BE BASED ON THE PRIMARY CLINICAL RECORDS. [employer] provides no warranty or guarantee of the accuracy or completeness of information in this document.
--- NOTE | 2023-09-13 13:21 | P.CN_ITS ---
Consult Note: HPI Data of Consult Patient: new to practice Consult date: 09/13/23 Requesting Physician: Kulwant García MD Primary Care Provider: FERNIE LEONG Consult Narrative Reason for consult: Low back, right leg pain Narrative: 77yof who presents for evaluation. Worsening low back and right leg pain that makes it difficult to ambulate. Had lumbar MRI, which shows severe stenosis at L4-5, L5-S1, as well as severe facet arthropathy at these levels. She utilizes tylenol, gabapentin, robaxin. Tramadol helps to some degree. Engages in chiropractic therapy and completed >6 weeks of provider directed home exercise course. Denies adverse med side effects. cc:: CC: Kulwant García MD Review of Systems ROS Status of ROS 10 or more systems reviewed and unremark able except as noted in history and below PFSH PFSH Social History Smoking status: Never smoker Meds Home Medications and Allergies Home Medications Medication Instructions Recorded Confirmed Type amoxicillin 500 mg-potassium 1 tab PO Q12H 07/29/23 07/29/23 History clavulanate 125 mg tablet atorvastatin 10 mg tablet 10 mg PO DAILY 07/29/23 07/29/23 History gabapentin 100 mg capsule 200 mg PO Q8H 07/29/23 07/29/23 History levothyroxine 75 mcg tablet 75 mcg PO DAILY 07/29/23 07/29/23 History lidocaine 5 % topical patch 1 patch topical Q24H 07/29/23 07/29/23 History methocarbamol 750 mg tablet 750 mg PO Q6H PRN pain #30 tabs 07/29/23 Rx metoprolol succinate 25 mg 25 mg PO DAILY 07/29/23 07/29/23 History tablet,extended release 24 hr nabumetone 750 mg tablet 750 mg PO BID PRN pain #14 tabs 07/29/23 Rx omeprazole 40 mg capsule,delayed 40 mg PO DAILY 07/29/23 07/29/23 History release Allergies Allergy/AdvReac Type Severity Reaction Status Date / Time No Known Drug Allergies Allergy Verified 07/29/23 19:29 Exam Narrative Exam Narrative: Psych-alert and oriented x 3. Attentive and appropriate, constitutionally normal, displays normal mood and affect per situation. There are no obvious deficits in memory, reasoning, or intellect.? Skin-no obvious rashes, bruising, erythema noted to the patient's area of pain.? Extremities- extremities are warm with minimal edema and palpable pulses. Lumbar-tenderness to palpation noted in the lumbar spine and paraspinal musculature. Pain is elicited with flexion, extension, and lateral rotation of the lumbar spine. Range of motion is diminished with these motions. Facet loading maneuvers are positive.? Strength-noted to be unremarkable with the exception of decreased strength rated at 4 out of 5 in right quadriceps femoris, anterior tibialis. Sensory-no notable sensory deficits in the bilateral lower extremities to touch or pinprick in all dermatomal distributions with the exception to decreased sensation to the right L4, 5 dermatomal distribution Sacroiliac - tenderness to right PSIS. Positive thigh thrust on right. Positive Tre's on right. Coordination remains intact.? Gait remains non-antalgic. Assessment and Plan Assessment and Plan (1) Lumbar stenosis with neurogenic claudication: (2) Lumbar spondylosis: (3) Sacroiliac dysfunction: Plan 77yof who presents for evaluation. Failed conservative measures, as noted. Imaging reviewed, as noted. Given symptoms and imaging, prudent to attempt right L4-5, L5-S1 TFESI under fluoroscopic guidance. May even benefit from right SIJ injection. She is in agreement. Meds reviewed, will prescribe tramadol 50mg tid prn. She expressed understanding. Follow up after procedure.
== END 2023-09-13 11:15 | disposition home or self-care (01) ==
LOC: PM 11:15
PROVIDERS: PCP Family Medicine; Visit Provider Anesthesiology
DX: M48.062 Spinal stenosis, lumbar region with neurogenic claudication (principal); M47.816 Spondylosis without myelopathy or radiculopathy, lumbar region; M53.3 Sacrococcygeal disorders, not elsewhere classified
CPT/HCPCS: G0463

== ENCOUNTER 2023-09-27 08:42 | Day surgery (SDC) | payer MEDICARE, SELFPAY ==
--- OUTSIDE RECORDS SUMMARY | 2023-09-27 08:45 | XMS_ITS | CCD ---
Author Name Unknown Address [address] [place] [address] Organization [facility] Care Team Providers Care Qi Specialist Name Role Phone Ap Holland Unavailable FABIENNE Briscoe Primary Care Provider MD Ap Holland Attending Provider Ap Holland Attending Unavailable Ap Holland Admitting Unavailable Roslyn Briscoe Primary Care Unavailable ANJALI MAK Attending Unavailable ANJALI MAK Attending Unavailable RACHNA, ROSLYN Overton Attending Unavailab le RACHNA, ROSLYN Overton Attending Unavailab le RACHNA, ROSLYN A Attending Unavailab le RACHNA, ROSLYN Brooklynn Attending Unavailab le RACHNA, ROSLYN A Referring Unavailab PIERRE Macario Attending Unavailab le RACHNA, ROSLYN Overton Attending Unavailab sharan García MD, Kulwant Cross Attending Unavailable Allergies Allergy Classification Reported Allergen(s) Allergy Type Date of Onset Reaction(s) Facility (7 sources) Pollen Drug allergy Unknown [facility] Other Medications Current Medications Medication Drug Class(es) [...] 05-10-2023 XR hip RT min 2V(w/wo pelvis)* [facility] Main [place] [address] [place] [address] XRay Report Signed Patient: Yvonne Liz MR#: [id number] 15 : 1945 Acct:[id number] Age/Sex: 77 / F ADM Date: 05/10/23 Loc: XD Room: Type: [facility] Attending Dr: Ap Holland MD Copies [...] Nick Stokes M.D.05/10/2023 3:23 PM Dictation Location: [place] [address] Transcribed By: [facility] 05/10/23 152 Dictated By: Nick Stokes DO 05/10/23 1521 Signed By: 05/10/23 1523 Normal [facility] XR Spine Lumbar Complete w/F maxi AND Miranda 12-10-2022 XR Spine Lumbar Complete w/Flex AND [...] by Roosevelt Motley on 12/10/2022 1457 Normal [facility] XR Hip Complete Right*on XR Hip Complete Right* HISTORY: Posterior hip radiating pain falls x 2 years FINDINGS: Mild bilateral superior medial hip joint space loss. No pincer or CAM deformities. Prominent arterial calcifications. IMPRESSION: 1. 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 Report reported and signed by Bonilla Mckeon on 04/29/2022 1031 Normal [facility] Complete Blood Count with Au to Diffon 01-13-2022 Basophils (Bld) [#/Vol] 0.06 10*3/uL Normal 0.00-0.20 [facility] Comment on above: Performed By: #### V ITD, CMP, TSH reflex FT4, CBCAD, FE Prof #### [facility] [address], [place] [id number] Basophils/100 WBC (Bld) 1.3 % Normal [facility] Comment on above: Performed By: #### V ITD, CMP, TSH reflex FT4, CBCAD, FE Prof #### [facility] [address], [place] [id number] Eosinophils (Bld) [#/Vol] 0.36 10*3/uL Normal 0.02-0.50 [facility] Special[facility] Comment on above: Performed By: #### V ITD, CMP, TSH reflex FT4, CBCAD, FE Prof #### [facility] [address], [place] [id number] Eosinophils/100 WBC (Bld) 7.6 % Normal [facility] Special[facility] Comment on above: Performed By: #### V ITD, CMP, TSH reflex FT4, CBCAD, FE Prof #### [facility] [address], [place] [id number] Erythrocyte distribution width (RBC) [Ratio] 12.1 % Normal 11.0-15.0 [facility] Comment on above: Performed By: #### V ITD, CMP, TSH reflex FT4, CBCAD, FE Prof #### [facility] [address], [place] [id number] Hematocrit (Bld) [Volume fraction] 34.0 % Low 35.0-47.0 [facility] Comment on above: Performed By: #### V ITD, CMP, TSH reflex FT4, CBCAD, FE Prof #### [facility] [address], [place] [id number] Hemoglobin (Bld) [Mass/Vol] 11.9 g/dL Normal 11.6-15.5 [facility] Comment on above: Performed By: #### V ITD, CMP, TSH reflex FT4, CBCAD, FE Prof #### [facility] [address], [place] [id number] Lymphocytes (Bld) [#/Vol] 1.2 10*3/uL Normal 0.9-3.9 [facility] Comment on above: Performed By: #### V ITD, CMP, TSH reflex FT4, CBCAD, FE Prof #### [facility] [address], [place] [id number] Lymphocytes/100 WBC (Bld) 26.1 % Normal [facility] Special[facility] Comment on above: Performed By: #### V ITD, CMP, TSH reflex FT4, CBCAD, FE Prof #### [facility] [address], [place] [id number] MCH (RBC) [Entitic mass] 34.0 pg High 27.0-33.0 [facility] Comment on above: Performed By: #### V ITD, CMP, TSH reflex FT4, CBCAD, FE Prof #### [facility] [address], [place] [id number] MCHC (RBC) [Mass/Vol] 35.0 g/dL Normal 32.0-36.0 [facility] Comment on above: Performed By: #### V ITD, CMP, TSH reflex FT4, CBCAD, FE Prof #### [facility] [address], [place] [id number] MCV (RBC) [Entitic vol] 97 fL Normal 80-100 [facility] Comment on above: Performed By: #### V ITD, CMP, TSH reflex FT4, CBCAD, FE Prof #### [facility] [address], [place] [id number] Monocytes (Bld) [#/Vol] 0.4 10*3/uL Normal 0.2-0.9 [facility] Special[facility] Comment on above: Performed By: #### V ITD, CMP, TSH reflex FT4, CBCAD, FE Prof #### [facility] [address], [place] [id number] Monocytes/100 WBC (Bld) 8.9 % Normal [facility] Comment on above: Performed By: #### V ITD, CMP, TSH reflex FT4, CBCAD, FE Prof #### [facility] [address], [place] [id number] Neutrophils (Bld) [#/Vol] 2.6 10*3/uL Normal 1.5-7.8 [facility] Comment on above: Performed By: #### V ITD, CMP, TSH reflex FT4, CBCAD, FE Prof #### [facility] [address], [place] [id number] Neutrophils/100 WBC (Bld) 55.9 % Normal [facility] Special[facility] Comment on above: Performed By: #### V ITD, CMP, TSH reflex FT4, CBCAD, FE Prof #### [facility] [address], [place] [id number] Platelet mean volume (Bld) [Entitic vol] 11.00 fL Normal 7.50-12.50 [facility] Special[facility] Comment on above: Performed By: #### V ITD, CMP, TSH reflex FT4, CBCAD, FE Prof #### [facility] [address], [place] [id number] Platelets (Bld) [#/Vol] 102 10*3/uL Low 140-400 [facility] Special[facility] Comment on above: Performed By: #### V ITD, CMP, TSH reflex FT4, CBCAD, FE Prof #### [facility] [address], [place] [id number] RBC (Bld) [#/Vol] 3.50 10*6/uL Low 3.90-5.20 [facility] Specialist Comment on above: Performed By: #### V ITD, CMP, TSH reflex FT4, CBCAD, FE Prof #### [facility] [address], [place] [id number] RDW-SD 42.1 fL Normal 37.0-50.0 [facility] Comment on above: Performed By: #### V ITD, CMP, TSH reflex FT4, CBCAD, FE Prof #### [facility] [address], [place] [id number] WBC (Bld) [#/Vol] 4.7 10*3/uL Normal 3.8-11.0 [facility] [place] [facility] Comment on above: Performed By: #### V ITD, CMP, TSH reflex FT4, CBCAD, FE Prof #### [facility] [address], [place] [id number] Comprehensive Metabolic Pane [facility] 01-13-2022 Albumin [Mass/Vol] 4.2 g/dL Normal 3.6-5.1 [facility] [place] [facility] Comment on above: Performed By: #### V ITD, CMP, TSH reflex FT4, CBCAD, FE Prof #### [facility] [address], [place] [id number] Albumin/Globulin [Mass ratio] 1.8 {ratio} Normal 1.0-2.5 [facility] Comment on above: Performed By: #### V ITD, CMP, TSH reflex FT4, CBCAD, FE Prof #### [facility] [address], [place] [id number] ALP [Catalytic activity/Vol] 83 U/L Normal 35-119 [facility] Comment on above: Performed By: #### V ITD, CMP, TSH reflex FT4, CBCAD, FE Prof #### [facility] [address], [place] [id number] ALT [Catalytic activity/Vol] 28 U/L Normal 6-33 [facility] Comment on above: Result Comment: 07/09 Female reference range changed. Performed By: #### V ITD, CMP, TSH reflex FT4, CBCAD, FE Prof #### [facility] [address], [place] [id number] Anion gap [Moles/Vol] 12 mmol/L Normal 12-20 [facility] Comment on above: Result Comment: Effe ctive 08/14/2019 reference range changed. Performed By: #### V ITD, CMP, TSH reflex FT4, CBCAD, FE Prof #### [facility] [address], [place] [id number] AST [Catalytic activity/Vol] 36 U/L High 9-34 [facility] Comment on above: Performed By: #### V ITD, CMP, TSH reflex FT4, CBCAD, FE Prof #### [facility] [address], [place] [id number] Bilirubin [Mass/Vol] 0.48 mg/dL Normal 0.30-1.20 [facility] Comment on above: Performed By: #### V ITD, CMP, TSH reflex FT4, CBCAD, FE Prof #### [facility] [address], [place] [id number] BUN/CREA 19 Ratio Normal 6-22 [facility] Specialist Comment on above: Performed By: #### V ITD, CMP, TSH reflex FT4, CBCAD, FE Prof #### [facility] [address], [place] [id number] Calcium [Mass/Vol] 9.5 mg/dL Normal 8.6-10.2 [facility] Comment on above: Performed By: #### V ITD, CMP, TSH reflex FT4, CBCAD, FE Prof #### [facility] [address], [place] [id number] Chloride [Moles/Vol] 105 mmol/L Normal 98-107 [facility] Special[facility] Comment on above: Performed By: #### V ITD, CMP, TSH reflex FT4, CBCAD, FE Prof #### [facility] [address], [place] [id number] CO2 [Moles/Vol] 27 mmol/L Normal 20-31 [facility] Comment on above: Performed By: #### V ITD, CMP, TSH reflex FT4, CBCAD, FE Prof #### [facility] [address], [place] [id number] Creatinine [Mass/Vol] 1.0 mg/dL Normal 0.6-1.4 [facility] Comment on above: Performed By: #### V ITD, CMP, TSH reflex FT4, CBCAD, FE Prof #### [facility] [address], [place] [id number] eGFRAA 67 mL/min/1.73m2 Normal >60 [facility] Comment on above: Performed By: #### V ITD, CMP, TSH reflex FT4, CBCAD, FE Prof #### [facility] [address], [place] [id number] eGFRNAA 55 mL/min/1.73m2 Low >60 [facility] Comment on above: Performed By: #### V ITD, CMP, TSH reflex FT4, CBCAD, FE Prof #### [facility] [address], [place] [id number] Globulin (S) [Mass/Vol] 2.3 g/dL Normal 1.9-3.7 [facility] Comment on above: Performed By: #### V ITD, CMP, TSH reflex FT4, CBCAD, FE Prof #### [facility] [address], [place] [id number] Glucose [Mass/Vol] 85 mg/dL Normal 65-99 [place] [facility] Comment on above: Result Comment: For FASTING Glucose --- ADA reference ranges: Normal 65-99 mg/dl Prediabetes 100-125 Diabetes >/= 126 Performed By: #### V ITD, CMP, TSH reflex FT4, CBCAD, FE Prof #### [facility] [address], [place] [id number] Potassium [Moles/Vol] 3.8 mmol/L Normal 3.5-5.5 [facility] Comment on above: Performed By: #### V ITD, CMP, TSH reflex FT4, CBCAD, FE Prof #### [facility] [address], [place] [id number] Protein [Mass/Vol] 6.5 g/dL Normal 6.1-8.1 [place] [facility] [place] [facility] Comment on above: Performed By: #### V ITD, CMP, TSH reflex FT4, CBCAD, FE Prof #### [facility] [address], [place] [id number] Sodium [Moles/Vol] 140 mmol/L Normal 135-146 [place] [facility] [place] [facility] Comment on above: Performed By: #### V ITD, CMP, TSH reflex FT4, CBCAD, FE Prof #### [facility] [address], [place] [id number] Urea nitrogen [Mass/Vol] 19 mg/dL Normal 7-25 [facility] Comment on above: Performed By: #### V ITD, CMP, TSH reflex FT4, CBCAD, FE Prof #### [facility] [address], [place] [id number] Iron Profileon 01-13-2022 %FESAT 45 % Normal 11-50 [facility] Comment on above: Performed By: #### V ITD, CMP, TSH reflex FT4, CBCAD, FE Prof #### [facility] [address], [place] [id number] FE 129 ug/dL Normal 40-190 [facility] Comment on above: Result Comment: Refe rence range change 06/25/2017. Prior reference range F 37-145 ug/dL, M 59-158 ug/dL. Performed By: #### V ITD, CMP, TSH reflex FT4, CBCAD, FE Prof #### [facility] [address], [place] [id number] TIBC 284 ug/dL Normal 250-450 [facility] Special[facility] Comment on above: Performed By: #### V ITD, CMP, TSH reflex FT4, CBCAD, FE Prof #### [facility] [address], [place] [id number] UIBC 155 ug/dL Normal 112-347 [facility] Special[facility] Comment on above: Performed By: #### V ITD, CMP, TSH reflex FT4, CBCAD, FE Prof #### [facility] [address], [place] [id number] TSH w/ Reflex to Free T4on 0 01-13-2022 TSH 3.100 uIU/mL Normal 0.400-4.500 [facility] Comment on above: Performed By: #### V ITD, CMP, TSH reflex FT4, CBCAD, FE Prof #### [facility] [address], [place] [id number] US Venous, Bilateral, Lower Miranda 01-13-2022 US Venous, Bilateral, Lower Ext HISTORY: [...] by Bonilla Mckeon on 01/13/2022 1441 Normal [facility] Vitamin B12/Folateon 022 Cobalamin (Vitamin B12) [Mass/Vol] 258 pg/mL Normal 211-946 [facility] Special[facility] Comment on above: Performed By: #### B 12/Fol #### [facility] [address], [place] [id number] FOL 11.6 ng/mL Normal >4.7 [facility] Special[facility] Comment on above: Result Comment: Refe rence range change 06/25/2017. Prior reference range F 4.8-37.3 ng/mL, M 4.5-32.2 ng/mL. Performed By: #### B 12/Fol #### [facility] [address], [place] [id number] Vitamin D 25-OHon 01-13-2022 VIT D 25 OH 30 ng/ml Normal >29 [facility] Special[facility] Comment on above: Result Comment: Ching min D Status Deficiency <20 ng/mL Insufficiency 20-29 ng/mL Optimal 30-100 ng/mL Possible Toxicity >=150 ng/mL Performed By: #### V ITD, CMP, TSH reflex FT4, CBCAD, FE Prof #### [facility] [address], [place] [id number] Vital Signs Date Time Vital Sign Value Performing Clinician Facility 05-10-2023 10:45-0400 Body height 162.56 cm Ap Duganky Other [facility] Other 05-10-2023 10:45-0400 Body mass index (BMI) [Ratio] 25.4 kg/m2 Ap Skyler Other [facility] Other 05-10-2023 10:45-0400 Body weight 67.13 kg Ap Holland Other [facility] Other 05-10-2023 10:45-0400 Diastolic blood pressure 80 mm[Hg] Ap Skyler Other [facility] Other 05-10-2023 10:45-0400 Systolic blood pressure 122 mm[Hg] Ap Skyler Other [facility] Other 04-06-2023 11:15-0400 Body height 162.56 cm Ap Skyler Other [facility] Other 04-06-2023 11:15-0400 Body mass index (BMI) [Ratio] 26.09 kg/m2 Ap Skyler Other [facility] Other 04-06-2023 11:15-0400 Body weight 68.95 kg Ap Skyler Other [facility] Other 04-06-2023 11:15-0400 Diastolic blood pressure 84 mm[Hg] Ap Skyler Other [facility] Other 04-06-2023 11:15-0400 Systolic blood pressure 124 mm[Hg] Ap Skyler Other [facility] Other 03-23-2023 11:30-0400 Body height 162.56 cm Ap Skyler Other [facility] Other 03-23-2023 11:30-0400 Body mass index (BMI) [Ratio] 26.09 kg/m2 Ap Skyler Other [facility] Other 03-23-2023 11:30-0400 Body weight 68.95 kg Ap Skyler Other [facility] Other 03-23-2023 11:30-0400 Diastolic blood pressure 84 mm[Hg] Ap Holland Other [facility] Other 03-23-2023 11:30-0400 Systolic blood pressure 140 mm[Hg] Ap Holland Other [facility] Other 03-08-2023 09:00-0400 Body height 162.56 cm Ap Holland Other [facility] Other 03-08-2023 09:00-0400 Body mass index (BMI) [Ratio] 26.74 kg/m2 Ap Holland Other [facility] Other 03-08-2023 09:00-0400 Body weight 70.67 kg Ap Holland Other [facility] Other 03-08-2023 09:00-0400 Diastolic blood pressure 80 mm[Hg] Ap Holland Other [facility] Other 03-08-2023 09:00-0400 SaO2% (BldA) [Mass fraction] 99 % Ap Holland Other [facility] Other 03-08-2023 09:00-0400 Systolic blood pressure 130 mm[Hg] Ap Holland Other [facility] Other Encounters Encounter Date Encounter Type Care Provider Facility Start: 09-13-2023 End: 09-14-2023 ambulatory Kulwant García MD Facility:[facility] Start: 09-02-2023 End: 09-03-2023 ambulatory ROSLYN A HACKENBURG Not Available Start: 09-01-2023 End: 09-01-2023 ambulatory ANJALI Neal APLING Not Available Start: 08-18-2023 End: 08-18-2023 ambulatory ANJALI Neal APLING Not Available Start: 08-03-2023 End: 08-03-2023 ambulatory ROSLYN A HACKENBURG Not Available Start: 07-28-2023 End: 07-28-2023 ambulatory PIERRE BOB Not Available Start: 07-20-2023 End: 07-21-2023 ambulatory ROSLYN A HACKENBURG Not Available Start: 07-08-2023 End: 07-08-2023 ambulatory ROSLYN A HACKENBURG Not Available Start: 06-29-2023 End: 06-29-2023 ambulatory ROSLYN A HACKENBURG Not Available Start: 05-10-2023 Office outpatient vi sit 25 minutes Ap Holland [facility] Start: 05-10-2023 End: 05-10-2023 ambulatory Ap Hailey Skyler Facility:[facility] Start: 05-10-2023 End: 05-10-2023 ambulatory [facility]TERN [facility]OL[facility]C Roslyn Rachna Work Phone: [facility] Work Phone: Start: 05-10-2023 End: 05-10-2023 Patient encounter procedure [employer]TERN MOLDER-C Roslyn Rachna Work Phone: [facility] Main [place] Work Phone: Start: 04-29-2023 (PROC) PROCEDURE Ap Hart [facility] Start: 04-29-2023 End: 04-29-2023 ambulatory Apkalin Holland Other [facility] Other Start: 04-06-2023 End: 04-06-2023 ambulatory Ap Holland Other [facility] Other Start: 04-06-2023 Office outpatient vi sit 25 minutes Ap Holland [facility] Start: 03-23-2023 End: 03-23-2023 ambulatory Ap Holland Other [facility] Other Start: 03-23-2023 Office outpatient vi sit 15 minutes Ap Holland [facility] Start: 03-16-2023 (PROC) PROCEDURE Ap Hart [facility] Start: 03-16-2023 End: 03-16-2023 ambulatory Ap Holland Other [facility] Other Start: 03-09-2023 End: 03-09-2023 ambulatory Ap Holland Other [facility] Other Start: 03-09-2023 Telephone encounter Ap Holland [facility] Start: 03-08-2023 End: 03-08-2023 ambulatory Ap Holland Other [facility] Other Start: 03-08-2023 Office consultation new/estab patient 60 min Ap Holland [facility] Procedures Date Procedure Procedure Detail Performing Clinician Start: 05-10-2023 Plain X-ray of right hip [employer]TERN MOL[employer]-C Roslyn Briscoe Work Phone: Payers Date Payer Category Payer Private Health Insurance 2023 Self-pay 2021 Medicare [id number] 1945 Unknown [id number] .16.84 [id number] 1945 Unknown [id number] .16.84 [id number] 1945 Unknown [id number] .16.84 0.1.202963.3.579.2.1258 1945 Unknown [id number] .[id number] .[id number] 1945 Unknown [id number] 2.16.840 .1.741555.3.579.2.9 1945 Unknown [id number] 2.16.840 .1.268549.3.579.2.1258 1945 Unknown [id number] 2.16.840 .1.073405.3.579.2.1258 1945 Unknown [id number] 2.16.840 .1.530582.3.579.2.1258 1945 Unknown [id number] 2.16.840 .1.607096.3.579.2.1258 1945 Unknown [id number] 2.16. [id number] Medicare [id number] 2.1 [id number] Unknown [id number] 2.16.8 [id number] Social History Date Type Detail Facility Sex Assigned At [facility] Other Start: 1945 Sex Assigned At Female F [facility] Evaluation note 05-10-2023 Note Date & Type [...] up in 1 week for further evaluation. [facility] Other Evaluation note 04-06-2023 Note Date & [...] (ICD-10 - G89.29) Proceed with treatment plan. [facility] Other Evaluation note 03-23-2023 Note Date & [...] (ICD-10 - G89.29) Follow up as needed [facility] Other Evaluation note 03-08-2023 Note Date & [...] negative findings were considered in medical decision-making. [facility] Other Evaluation note Note Date & Type Note Facility Evaluation note No Information [employer] Other Evaluation note Note Date & Type Note Facility Evaluation note [facility]: History general Narrative - Reported Note Date & Type Note Facility History general Narrative - Reported Type Medical History hypercholestolemia Medical History stenosis [facility] Other Summary Purpose Family History No Family [...] section and content) DATE CREATED AUTHOR 12/11/2022 [facility] DATE CREATED AUTHOR AUTHOR'S ORGANIZ ATION 05/15/[address] [facility] DATE CREATED AUTHOR AUTHOR'S ORGANIZ ATION 09/06/2023 [facility] EPIC DATE CREATED AUTHOR AUTHOR'S ORGANIZ ATION 09/16/2023 [facility] REASON FOR VISIT (unrecogniz ed section and content) Referred by Roslyn rosenberg for Lumbar spine stenosis and arthritis; MRI done [facility] InformationRIGHT L4,5 TRANSFORAMINAL EPIDURAL STEROID INJ/ELFOLLOW UP AFTER RIGHT LTRf/u increase in pain right hip into legL5-S1 EPIDURAL STEROID INJ/ELfollow up after LES Care Teams (unrecognized sec tion and content) Team Status: Active Member Role Status Dates FABIENNE Anderson Primary Care Provider Tran munson Team Status: Inactive Member Role Status Dates FABIENNE Anderson Primary Care Provider Telma Holland MD Attending Provider Active Goals (unrecognized [...] BE BASED ON THE PRIMARY CLINICAL RECORDS. [employer] provides no warranty or guarantee of the accuracy or completeness of information in this document.
[2023-09-27 08:55] VITALS: BP 131/85; PULSE 89; RESP 16; TEMP 36.1; O2SAT 98
[2023-09-27 09:27] VITALS: BP 131/71; BP 138/87; PULSE 81; PULSE 83; RESP 18; O2SAT 97; O2SAT 98
--- NOTE | 2023-09-27 09:30 | P.ON_ITS ---
Date of procedure: 09/27/23 Pre-op diagnosis: Lumbar stenosis with neurogenic claudication Post-op diagnosis: same as pre-op Procedure: Procedure: Right L4-5, L5-S1 transforaminal epidural steroid injection Medications: Bupivacaine 0.25% 1cc, lidocaine 2% 1cc, normal saline 0.9% 1cc, kenalog 80mg The patient was seen and examined in the preoperative holding area.? Informed consent was obtained and placed on the chart.? Patient was brought to the medical procedure unit and placed in the prone position where a timeout was completed verifying the correct patient, procedure site, position, and planned special equipment using sterile aseptic technique.? Under direct fluoroscopic visualization a 25-gauge Quincke tipped spinal needle was advanced to the designated neural foramen where contrast dye was injected to show adequate spread.? The needle was inserted at level right L4-5. There was no evidence of vascular or adverse uptake.? Epidural spread was appreciated.? The above- mentioned injectate was then placed in a 1.5 mL aliquot preceded by negative aspiration.? The needle was removed. The needle was inserted and the procedure repeated at level right L5-S1.? The surgery site was covered.? Patient was taken to the postprocedural recovery area and monitored for an appropriate length of time before found suitable for discharge in the accompaniment of a responsible adult. Surgeon: Kulwant García Pathology: none sent Condition: stable Disposition: no change
[2023-09-27] MEDS: BUPIVACAINE HCL 0.25% PF 25 MG/10 ML VIAL INJ (09:31)
[2023-09-27] MEDS: 0.9 % SODIUM CHLORIDE 10 ML INJ (09:31)
[2023-09-27] MEDS: IOHEXOL 240 MG/ML - 10 ML VIAL 12 MG INJ (09:32)
[2023-09-27] MEDS: TRIAMCINOLONE ACETONIDE 40 MG/ML VIAL 80 MG INJ (09:32)
[2023-09-27] MEDS: LIDOCAINE HCL 2% PF 100 MG/5 ML VIAL 3 ML INJ (09:32)
--- NOTE | 2023-09-27 10:34 | PC.NURSE ---
Post procedure pt reports legs feel untable, upon attempting to ambulate to was unsteady and placed in a wheelchair. Pt observed and attempted to ambulate with assistance periodically. After 3 attempts pt was able to ambulate safely and stated that legs no longer felt weak. Pt taken to car in wheelchair.
== END 2023-09-27 10:33 | disposition home or self-care (01) ==
PROVIDERS: PCP Family Medicine; Visit Provider Anesthesiology
DX: M48.062 Spinal stenosis, lumbar region with neurogenic claudication (principal)
CPT/HCPCS: 64483; 64484; J0665; J3301; Q9966

== ENCOUNTER 2023-10-07 18:34 | Inpatient (IN) | payer MEDICARE, SELFPAY ==
[2023-10-07] VITALS (20 sets, daily range): BP systolic 147–190; BP diastolic 78–120; PULSE 78–89; RESP 11–24; TEMP 36.3–36.8; O2SAT 89–99; BMI 25.6; BMI 25.5
--- NOTE | 2023-10-07 18:41 | ECG_ITS ---
[facility] Test Date: 2023-10-07 Pat Name: DEXTER MCCARTHY Department: Room: - Gender: Female [place] Turner: : 1945 Requested By: [id number] Order Number: [id number] Reading MD: MATEO SOLARES Measurements Intervals [place] Rate: 82 P: 23 MI: 132 QRS: 30 QRSD: 72 T: 41 QT: 366 QTc: 405 Interpretive Statements 1100 Sinus rhythm 1102 Sinus arrhythmia 9110 normal ECG No previous ECG available for comparison Electronically Signed On 10-07-2023 23:12:21 EST by MATEO SOLARES
--- NOTE | 2023-10-07 18:41 | XR_ITS ---
The [address] [address] Patient Name: DEXTER MCCARTHY MRN: [id number] date: 1945 Sex: F Assigned Patient Location: ED.MAIN Current Patient Location: ER Accession/Order Number: [id number] Exam Date: 10/07/2023 19:10 Report Date: 10/07/2023 20:15 At the request of: SULEMA VALENTIN Procedure: XR chest 1V EXAM: XR chest 1V HISTORY: Dizzy, fall COMPARISON: None. TECHNIQUE: One view chest FINDINGS: The heart size is upper normal. There is atherosclerosis of the thoracic aorta. The lungs are clear. There is asymmetric elevation of the right hemidiaphragm. There is no pleural effusion or pneumothorax. There is an old, healed left posterior sixth rib fracture. XR/XR chest 1V IMPRESSION: No acute abnormality. Electronically authenticated by: YVONNE JO Date: 10/07/2023 20:15
--- NOTE | 2023-10-07 18:41 | CT_ITS ---
The [address] [address] Patient Name: DEXTER MCCARTHY MRN: [id number] date: 1945 Sex: F Assigned Patient Location: ER Current Patient Location: Accession/Order Number: [id number] Exam Date: 10/07/2023 19:10 Report Date: 10/07/2023 20:06 At the request of: SULEMA VALENTIN Procedure: CT cervical spine wo con EXAM: CT cervical spine wo con HISTORY: fall, dizzy COMPARISON: None. TECHNIQUE: Axial CT scans through the cervical spine were obtained without contrast administration. Sagittal and coronal reconstruction images were obtained. Dose reduction techniques were achieved by using automated exposure control and/or adjustment of mA and/or kV according to patient size and/or use of iterative reconstruction technique. FINDINGS: No acute fracture or posttraumatic malalignment is seen. The dens and lateral masses of C1 are symmetric. There is moderate to severe decreased disc height and degenerative endplate changes and discovertebral complexes at C4-5 and C6-7 levels. Mild central canal stenosis is seen at C4-5 level. There is multilevel uncovertebral and facet arthrosis. There are multilevel neural foraminal narrowing, severe at the right C3-4, bilateral C4-5, bilateral C5-6 and bilateral C6-7; mild at left C2-3, secondary to uncovertebral joint and facet arthropathy. There is mild retrolisthesis of C4 on C5 and mild anterolisthesis of C5 on C6, likely degenerative in etiology. The prevertebral soft tissue space appears normal. There are atherosclerotic calcifications of bilateral carotid bifurcations. Visualized lung apices are clear. CT/CT cervical spine wo con IMPRESSION: No visualized acute cervical spine abnormality. Multilevel cervical spondylosis, most pronounced at C4-5 and C6-7 levels, as described. Electronically authenticated by: DENYS SAAVEDRA Date: 10/07/2023 20:06
--- NOTE | 2023-10-07 18:42 | CT_ITS ---
The [address] [address] Patient Name: DEXTER MCCARTHY MRN: [id number] date: 1945 Sex: F Assigned Patient Location: ER Current Patient Location: ER Accession/Order Number: [id number] Exam Date: 10/07/2023 19:10 Report Date: 10/07/2023 19:52 At the request of: SULEMA VALENTIN Procedure: CT head/brain wo con EXAM: CT head/brain wo con HISTORY: Fall COMPARISON: None. TECHNIQUE: Axial CT scans through the head were obtained without IV contrast administration. Dose reduction techniques were achieved by using: automated exposure control and/or adjustment of mA and /or kV according to patient size and/or use of iterative reconstruction technique. FINDINGS: There is no evidence of acute intracranial hemorrhage or abnormal extra-axial fluid collection. No mass effect or midline shift is seen. There is no evidence of large acute territorial infarction. There is no hydrocephalus. There is enlargement of the ventricles and sulci, consistent with age appropriate cerebral atrophy. Patchy areas of low-attenuation are present in supratentorial white matter, likely represents chronic microvascular ischemia. To the limit of CT, the posterior fossa appears unremarkable. There are atherosclerotic calcifications of anterior and posterior circulations. No definite acute fracture is identified. Soft tissues are unremarkable. The visualized orbits show no abnormality. The visualized paranasal sinuses show no air-fluid level. Mastoid air cells are clear. CT/CT head/brain wo con IMPRESSION: No CT evidence of acute intracranial abnormality. Moderate chronic microvascular ischemia and involutional changes. Vascular calcifications Electronically authenticated by: DENYS ECHEVARRIAU Date: 10/07/2023 19:52
--- NOTE | 2023-10-07 18:43 | XR_ITS ---
The [address] [address] Patient Name: DEXTER MCCARTHY MRN: [id number] date: 1945 Sex: F Assigned Patient Location: ED.MAIN Current Patient Location: ER Accession/Order Number: [id number] Exam Date: 10/07/2023 19:10 Report Date: 10/07/2023 20:28 At the request of: SULEMA VALENTIN Procedure: XR hip RT 2V w/ pelvis EXAM: XR hip RT 2V w/ pelvis HISTORY: fall COMPARISON: None. TECHNIQUE: 4 views right hip FINDINGS: There is a displaced and angulated fracture of the right femoral neck. The femoral head is well-seated within the acetabulum. Diffuse vascular calcifications are noted. Degenerative changes of the lumbosacral spine and sacroiliac joints. XR/XR hip RT 2V w/ pelvis IMPRESSION: Displaced and angulated fracture of the right femoral neck. Electronically authenticated by: OLGA MERCADO Date: 10/07/2023 20:28
--- NOTE | 2023-10-07 18:43 | ED.FALL1 ---
HPI - Fall General Chief Complaint: Fall Stated Complaint: HIP PAIN FALL Time Seen by Provider: 10/07/23 18:40 Source: patient Mode of arrival: ambulance Limitations: no limitations History of Present Illness HPI Narrative: Patient is a 77-year-old female who presents to the emergency department for pain in the right hip after a fall. She states that she got dizzy and fell backward onto her back. She does not believe she lost consciousness but is not sure. She states she felt as though she was spinning and fell backward onto her back. She reports pain to the right hip. She is noted to have external rotation and shortening of the right lower extremity at time of arrival to the ER. She is yelling in pain. 50 mcg of fentanyl were given prior to arrival without improvement. She is in chronic pain management for degenerative disc disease, she denies any pain to any areas other than her right hip. She is not anticoagulated. Related Data Home Medications Medication Instructions Recorded Confirmed atorvastatin 10 mg tablet 10 mg PO DAILY 07/29/23 09/27/23 levothyroxine 75 mcg tablet 75 mcg PO DAILY 07/29/23 09/27/23 metoprolol succinate 25 mg 25 mg PO DAILY 07/29/23 09/27/23 tablet,extended release 24 hr omeprazole 40 mg capsule,delayed 40 mg PO DAILY 07/29/23 09/27/23 release acetaminophen 500 mg tablet 1,000 mg PO Q6H PRN pain 09/13/23 09/27/23 (Tylenol Extra Strength) meclizine 25 mg tablet 25 mg PO BID 09/13/23 09/27/23 tramadol 50 mg tablet 50 mg PO TID 09/13/23 09/27/23 Allergies Allergy/AdvReac Type Severity Reaction Status Date / Time No Known Drug Allergies Allergy Verified 09/27/23 09:00 Review of Systems ROS Constitutional Denies: fever or chills Ears, nose, mouth, and throat Denies: throat pain or nasal congestion Cardiovascular Denies: chest pain Respiratory Denies: shortness of breath or cough Gastrointestinal Denies: nausea or vomiting Genitourinary Denies: painful urination Musculoskeletal Reports: extremity pain, joint pain and limited range of motion; Denies: back pain or neck pain Integumentary/Breast Denies: rash Neurological Denies: headache Hematologic/Lymphatic Denies: easy bruising or easy bleeding [facility] Medical History (Updated 10/07/23 @ 20:41 by BRIANNA Adam) Irregular heartbeat ?I49.9 - Cardiac arrhythmia, unspecified (ICD-10) Acid reflux ?K21.9 - Gastro-esophageal reflux disease without esophagitis (ICD-10) Rheumatoid arthritis ?M06.9 - Rheumatoid arthritis, unspecified (ICD-10) Osteoarthritis ?M19.90 - Unspecified osteoarthritis, unspecified site (ICD-10) Hearing deficit ?H91.90 - Unspecified hearing loss, unspecified ear (ICD-10) Hypothyroid ?E03.9 - Hypothyroidism, unspecified (ICD-10) Hypertension ?I10 - Essential (primary) hypertension (ICD-10) High cholesterol ?E78.00 - Pure hypercholesterolemia, unspecified (ICD-10) Social History Smoking status: Never smoker Exam Narrative Exam Narrative: Gen.: Awake, alert, Screaming in pain Head: Normocephalic, atraumatic ENT: Moist mucous membranes; No facial or dental injury, no cervical tenderness Respiratory: No respiratory distress, lungs clear bilaterally Cardio: Regular rate and rhythm Gastrointestinal: Abdomen is soft, nondistended and nontender to palpation; Pelvis is stable Extremities: Limited movement at the right hip, significant pain to Touch of the right hip, external rotation and shortening noted of the right leg. 2+ DP pulses bilaterally. Psych: Normal mood and affect Neuro: No focal neuro deficit Skin: Warm, dry, intact Constitutional Vital Signs, click to edit/add: Last Vital Signs Temp 97.4 F L 10/07/23 22:42 Pulse 83 10/07/23 22:42 Resp 20 10/07/23 22:42 BP 153/78 H 10/07/23 22:42 Pulse Ox 95 10/07/23 22:42 O2 Del Method Room Air 10/07/23 22:42 Course Vital Signs Vital signs: Vital Signs Temperature 98.3 F 10/07/23 18:38 Pulse Rate 85 10/07/23 18:38 Respiratory Rate 24 10/07/23 18:38 Pulse Oximetry 99 10/07/23 18:38 Oxygen Delivery Method Room Air 10/07/23 18:38 Temperature 97.4 F L 10/07/23 22:42 Pulse Rate 83 10/07/23 22:42 Respiratory Rate 20 10/07/23 22:42 Blood Pressure 153/78 H 10/07/23 22:42 Pulse Oximetry 95 10/07/23 22:42 Oxygen Delivery Method Room Air 10/07/23 22:42 MDM - Fall MDM Narrative Medical decision making narrative: Patient medicated with 0.5 mg IV Dilaudid, 20 mg IV labetalol and 4 mg IV Zofran for blood pressure and pain control. She was medicated with another 4 mg of IV morphine. At time of reevaluation blood pressure is 161/92 with heart rate 82. She is resting more comfortably although continues to have pain in the right hip with movement. Labs obtained showing stable chronic kidney disease, no other acute abnormalities, EKG with normal sinus rhythm. CT of the brain, CT of the cervical spine and x-rays of the chest are unremarkable and patient is found to have a right femoral neck fracture. I discussed this with the patient and her at bedside. 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 She takes meclizine at home for this. Her symptoms of dizziness tonight were not uncommon for her. I discussed being admitted for orthopedic surgery evaluation, patient would like to stay at this facility and I contacted Dr. Hnedricks for orthopedics. He reviewed the images of the right hip fracture and is in agreement with the patient being admitted to the hospitalist service for intervention. He requested that the patient receive no Lovenox or heparin overnight in anticipation of surgery tomorrow. Patient is stable at time of admission to hospitalist service. Medical Records Attestation: I reviewed the patient's medical records. Lab Data Attestation: I reviewed the patient's lab results. Labs: Lab Results 10/07/23 10/07/23 Range/Units 18:50 20:35 WBC 6.9 (4.0-11.0) 10^3/uL RBC 3.52 L (4.20-5.40) 10^6/uL Hgb 12.6 (12.0-16.0) g/dL Hct 35.7 L (36.0-48.0) % MCV 101.4 H (81.0-99.0) fL MCH 35.8 H (26.7-34.0) pg MCHC 35.3 H (29.9-35.2) g/dL RDW 13.5 (11.0-15.0) % Plt Count 148 L (150-450) 10^3/uL MPV 9.3 L (9.5-13.5) fL Neut % (Auto) 68.8 (43.0-75.0) % Lymph % (Auto) 19.2 L (20.5-60.0) % [place] % (Auto) 10.0 (1.7-12.0) % Eos % (Auto) 1.0 (0.9-7.0) % Baso % (Auto) 0.3 (0.2-2.0) % Neut # (Auto) 4.8 (1.4-6.5) 10^3/uL Lymph # (Auto) 1.3 (1.2-3.8) 10^3/uL [place] # (Auto) 0.7 (0.3-0.8) 10^3/uL Eos # (Auto) 0.1 (0.0-0.7) 10^3/uL Baso # (Auto) 0.0 (0.0-0.1) 10^3/uL Abs Immat Gran (auto) 0.05 H (0.00-0.03) 10^3/uL Imm/Tot Granulo (auto) 0.7 H (0.0-0.5) % PT 10.6 (9.0-11.6) sec INR 1.00 Sodium 139 (136-145) mmol/L Potassium 3.9 (3.5-5.1) mmol/L Chloride 105 (98-107) mmol/L Carbon Dioxide 22.6 (21.0-32.0) mmol/L Anion Gap 15.3 BUN 28.0 H (7.0-18.0) mg/dL Creatinine 1.26 H (0.55-1.02) mg/dL Est GFR ( Amer) 50 L (>=60) Est GFR (Non-Af Amer) 41 L (>=60) BUN/Creatinine Ratio 22.2 Glucose 189 H (74-106) mg/dL Calcium 9.3 (8.5-10.1) mg/dL Total Bilirubin 0.4 (0.2-1.0) mg/dL AST 29 (15-37) U/L ALT 43 (14-59) U/L Alkaline Phosphatase 119 H (46-116) U/L Troponin I High Sens <4.0 L (4.0-51.3) pg/mL Total Protein 6.6 (6.4-8.2) g/dL Albumin 3.2 L (3.4-5.0) g/dL Globulin 3.4 g/dL Albumin/Globulin Ratio 0.9 TSH 7.463 H (0.358-3.740) uIU/mL Urine Color Yellow (YELLOW) Urine Clarity Clear (CLEAR) Urine pH 5.5 (5.0-9.0) Ur Specific [place] >=1.030 A (1.005-1.025) Urine Protein Negative (NEG/TRACE) mg/dL Urine Glucose (UA) Negative (NEGATIVE) mg/dL Urine Ketones Trace A (NEGATIVE) mg/dL Urine Occult Blood Negative (NEGATIVE) Urine Nitrite Positive A (NEGATIVE) Urine Bilirubin Negative (NEGATIVE) Urine Urobilinogen 0.2 (0.2-1.0) EU/dL Ur Leukocyte Esterase Negative (NEGATIVE) Urine RBC 0-2 (0-2) #/HPF Urine WBC 5-10 A (NONE SEEN) #/HPF Ur Squamous Epith Cells Rare (NONE/RARE) #/LPF Urine Crystals Seen A (None Seen) #/HPF Calcium Oxalate Crystal Few Urine Bacteria Large A (NONE SEEN) #/HPF Urine Casts None seen (NONE SEEN) #/LPF Urine Mucus Small A (NONE SEEN) Ur Culture Indicated? Yes Imaging Data CT scan - head: Attestation: I have reviewed the pertinent imaging results. Radiologist's impression: ITS Impressions Cervical Spine CT 10/07/23 18:41 IMPRESSION: No visualized acute cervical spine abnormality. Multilevel cervical spondylosis, most pronounced at C4-5 and C6-7 levels, as described. Electronically authenticated by: DENYS SAAVEDRA Date: 10/07/2023 20:06 Chest X-Ray 10/07/23 18:41 IMPRESSION: No acute abnormality. Electronically authenticated by: YVONNE JO Date: 10/07/2023 20:[address] 10/07/23 18:42 IMPRESSION: No CT evidence of acute intracranial abnormality. Moderate chronic microvascular ischemia and involutional changes. Vascular calcifications Electronically authenticated by: DENYS SAAVEDRA Date: 10/07/2023 19:52 Hip/Pelvis X-Ray 10/07/23 18:43 IMPRESSION: Displaced and angulated fracture of the right femoral neck. Electronically authenticated by: OLGA MERCADO Date: 10/07/2023 20:28 ECG Data Attestation: I personally reviewed and interpreted this ECG as follows: (Normal sinus rhythm at a rate of 82, sinus arrhythmia with no acute ST elevation or ectopy. EKG reviewed by attending physician) Discharge Plan Discharge Chief Complaint: Fall Clinical Impression: Femoral neck fracture, Fall, Dizziness Patient Disposition: Admitted As Inpatient Time of Disposition Decision: 20:41 Condition: Good Discharge Date/Time: 10/07/23 22:27
--- OUTSIDE RECORDS SUMMARY | 2023-10-07 18:48 | XMS_ITS | CCD ---
Author Name Unknown Address [address] [facility] [address] [place] [address] Organization [facility] Care Team Providers Care Felling Machine Operator Name Role Phone Ap Holland Unavailable FABIENNE [...] Facility (7 sources) Pollen Drug allergy Unknown [facility] Other Medications Current Medications Medication Drug Class(es) [...] 05-10-2023 XR hip RT min 2V(w/wo pelvis)* [facility] [place] [address] [place] [address] XRay Report Signed Patient: Yvonne Liz MR#: [id number] 15 : 1945 Acct:[id number] Age/Sex: 77 / F ADM Date: 05/10/23 Loc: XD Room: Type: [facility] Attending Dr: Ap Holland MD Copies to: [...] Nick Stokes M.D.05/10/2023 3:23 PM Dictation Location: [place] [id number] Transcribed By: [facility] 05/10/23 152 Dictated By: Nick Stokes DO 05/10/23 1521 Signed By: 05/10/23 1523 Normal [facility] XR Spine Lumbar Complete w/F maxi AND [place] 12-10-2022 XR Spine Lumbar Complete w/Flex AND [...] by Roosevelt Motley on 12/10/2022 [address] [facility] XR Hip Complete Right*on XR Hip Complete Right* HISTORY: Posterior hip radiating pain falls x 2 years FINDINGS: Mild bilateral superior medial hip joint space loss. No pincer or CAM deformities. Prominent arterial calcifications. IMPRESSION: 1. 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 Report reported and signed by Bonilla Mckeon on 04/29/2022 1031 Normal [facility] Complete Blood Count with Au to Diffon 01-13-2022 Basophils (Bld) [#/Vol] 0.06 10*3/uL Normal 0.00-0.[address] [facility] Comment on above: Performed By: #### V ITD, CMP, TSH reflex FT4, CBCAD, FE Prof #### [facility] [address] [place], [place] [id number] Basophils/100 WBC (Bld) 1.3 % Normal [facility] Comment on above: Performed By: #### V ITD, CMP, TSH reflex FT4, CBCAD, FE Prof #### [facility] [address] [place], [place] [id number] Eosinophils (Bld) [#/Vol] 0.36 10*3/uL Normal 0.02-0.[address] [facility] Comment on above: Performed By: #### V ITD, CMP, TSH reflex FT4, CBCAD, FE Prof #### [facility] [address] [place], [place] [id number] Eosinophils/100 WBC (Bld) 7.6 % Normal [facility] Comment on above: Performed By: #### V ITD, CMP, TSH reflex FT4, CBCAD, FE Prof #### [facility] [address] [place], [place] [id number] Erythrocyte distribution width (RBC) [Ratio] 12.1 % Normal 11.0-15.[address] [facility] Comment on above: Performed By: #### V ITD, CMP, TSH reflex FT4, CBCAD, FE Prof #### [facility] [address] [place], [place] [id number] Hematocrit (Bld) [Volume fraction] 34.0 % Low 35.0-47.[address] [facility] Comment on above: Performed By: #### V ITD, CMP, TSH reflex FT4, CBCAD, FE Prof #### [facility] [address] [place], [place] [id number] Hemoglobin (Bld) [Mass/Vol] 11.9 g/dL Normal 11.6-15.[address] [facility] Comment on above: Performed By: #### V ITD, CMP, TSH reflex FT4, CBCAD, FE Prof #### [facility] [address] [place], [place] [id number] Lymphocytes (Bld) [#/Vol] 1.2 10*3/uL Normal 0.9-3.9 [facility] Comment on above: Performed By: #### V ITD, CMP, TSH reflex FT4, CBCAD, FE Prof #### [facility] [address] [place], [place] [id number] Lymphocytes/100 WBC (Bld) 26.1 % Normal [facility] Comment on above: Performed By: #### V ITD, CMP, TSH reflex FT4, CBCAD, FE Prof #### [facility] [address] [place], [place] [id number] MCH (RBC) [Entitic mass] 34.0 pg High 27.0-33.0 [facility] Comment on above: Performed By: #### V ITD, CMP, TSH reflex FT4, CBCAD, FE Prof #### [facility] [address] [place], [place] [id number] MCHC (RBC) [Mass/Vol] 35.0 g/dL Normal 32.0-36.0 [facility] Comment on above: Performed By: #### V ITD, CMP, TSH reflex FT4, CBCAD, FE Prof #### [facility] [address] [place], [place] [id number] MCV (RBC) [Entitic vol] 97 fL Normal 80-100 [facility] Comment on above: Performed By: #### V ITD, CMP, TSH reflex FT4, CBCAD, FE Prof #### [facility] [address] [place], [place] [id number] Monocytes (Bld) [#/Vol] 0.4 10*3/uL Normal 0.2-0.[address] [facility] Comment on above: Performed By: #### V ITD, CMP, TSH reflex FT4, CBCAD, FE Prof #### [facility] [address] [place], [place] [id number] Monocytes/100 WBC (Bld) 8.9 % Normal [facility] Comment on above: Performed By: #### V ITD, CMP, TSH reflex FT4, CBCAD, FE Prof #### [facility] [address] [place], [place] [id number] Neutrophils (Bld) [#/Vol] 2.6 10*3/uL Normal 1.5-7.[address] [facility] Comment on above: Performed By: #### V ITD, CMP, TSH reflex FT4, CBCAD, FE Prof #### [facility] [address] [place], [place] [id number] Neutrophils/100 WBC (Bld) 55.9 % Normal [facility] Comment on above: Performed By: #### V ITD, CMP, TSH reflex FT4, CBCAD, FE Prof #### [facility] [address] [place], [place] [id number] Platelet mean volume (Bld) [Entitic vol] 11.00 fL Normal 7.50-12.[address] [facility] Comment on above: Performed By: #### V ITD, CMP, TSH reflex FT4, CBCAD, FE Prof #### [facility] [address] [place], [place] [id number] Platelets (Bld) [#/Vol] 102 10*3/uL Low 140-[address] [facility] Comment on above: Performed By: #### V ITD, CMP, TSH reflex FT4, CBCAD, FE Prof #### [facility] [address] [place], [place] [id number] RBC (Bld) [#/Vol] 3.50 10*6/uL Low 3.90-5.20 [facility] Specialist Comment on above: Performed By: #### V ITD, CMP, TSH reflex FT4, CBCAD, FE Prof #### [facility] [address] [place], [place] [id number] RDW-SD 42.1 fL Normal 37.0-50.0 [facility] Comment on above: Performed By: #### V ITD, CMP, TSH reflex FT4, CBCAD, FE Prof #### [facility] [address] [place], [place] [id number] WBC (Bld) [#/Vol] 4.7 10*3/uL Normal 3.8-11.0 [facility] [place] [facility] Comment on above: Performed By: #### V ITD, CMP, TSH reflex FT4, CBCAD, FE Prof #### [facility] [address] [place], [place] [id number] Comprehensive Metabolic Pane [facility] 01-13-2022 Albumin [Mass/Vol] 4.2 g/dL Normal 3.6-5.1 [facility] [place] [facility] Comment on above: Performed By: #### V ITD, CMP, TSH reflex FT4, CBCAD, FE Prof #### [facility] [address] [place], [place] [id number] Albumin/Globulin [Mass ratio] 1.8 {ratio} Normal 1.0-2.5 [facility] Comment on above: Performed By: #### V ITD, CMP, TSH reflex FT4, CBCAD, FE Prof #### [facility] [address] [place], [place] [id number] ALP [Catalytic activity/Vol] 83 U/L Normal 35-119 [facility] Comment on above: Performed By: #### V ITD, CMP, TSH reflex FT4, CBCAD, FE Prof #### [facility] [address] [place], [place] [id number] ALT [Catalytic activity/Vol] 28 U/L Normal 6-33 [facility] Comment on above: Result Comment: 07/09 Female reference range changed. Performed By: #### V ITD, CMP, TSH reflex FT4, CBCAD, FE Prof #### [facility] [address] [place], [place] [id number] Anion gap [Moles/Vol] 12 mmol/L Normal 12-20 [facility] Comment on above: Result Comment: Effe ctive 08/14/2019 reference range changed. Performed By: #### V ITD, CMP, TSH reflex FT4, CBCAD, FE Prof #### [facility] [address] [place], [place] [id number] AST [Catalytic activity/Vol] 36 U/L High 9-34 [facility] Comment on above: Performed By: #### V ITD, CMP, TSH reflex FT4, CBCAD, FE Prof #### [facility] [address] [place], [place] [id number] Bilirubin [Mass/Vol] 0.48 mg/dL Normal 0.30-1.20 [facility] Comment on above: Performed By: #### V ITD, CMP, TSH reflex FT4, CBCAD, FE Prof #### [facility] [address] [place], [place] [id number] BUN/CREA 19 Ratio Normal 6-[address] [facility] Comment on above: Performed By: #### V ITD, CMP, TSH reflex FT4, CBCAD, FE Prof #### [facility] [address] [place], [place] [id number] Calcium [Mass/Vol] 9.5 mg/dL Normal 8.6-10.2 [facility] Comment on above: Performed By: #### V ITD, CMP, TSH reflex FT4, CBCAD, FE Prof #### [facility] [address] [place], [place] [id number] Chloride [Moles/Vol] 105 mmol/L Normal 98-[address] [facility] Comment on above: Performed By: #### V ITD, CMP, TSH reflex FT4, CBCAD, FE Prof #### [facility] [address] [place], [place] [id number] CO2 [Moles/Vol] 27 mmol/L Normal 20-31 [facility] Comment on above: Performed By: #### V ITD, CMP, TSH reflex FT4, CBCAD, FE Prof #### [facility] [address] [place], [place] [id number] Creatinine [Mass/Vol] 1.0 mg/dL Normal 0.6-1.4 [facility] Comment on above: Performed By: #### V ITD, CMP, TSH reflex FT4, CBCAD, FE Prof #### [facility] [address] [place], [place] [id number] eGFRAA 67 mL/min/1.73m2 Normal >60 [facility] Comment on above: Performed By: #### V ITD, CMP, TSH reflex FT4, CBCAD, FE Prof #### [facility] [address] [place], [place] [id number] eGFRNAA 55 mL/min/1.73m2 Low >60 [facility] Comment on above: Performed By: #### V ITD, CMP, TSH reflex FT4, CBCAD, FE Prof #### [facility] [address] [place], [place] [id number] Globulin (S) [Mass/Vol] 2.3 g/dL Normal 1.9-3.7 [facility] Comment on above: Performed By: #### V ITD, CMP, TSH reflex FT4, CBCAD, FE Prof #### [facility] [address] [place], [place] [id number] Glucose [Mass/Vol] 85 mg/dL Normal 65-99 [facility] [place] [employer] [facility] Comment on above: Result Comment: For FASTING Glucose --- ADA reference ranges: Normal 65-99 mg/dl Prediabetes 100-125 Diabetes >/= 126 Performed By: #### V ITD, CMP, TSH reflex FT4, CBCAD, FE Prof #### [facility] [address] [place], [place] [id number] Potassium [Moles/Vol] 3.8 mmol/L Normal 3.5-5.5 [facility] Comment on above: Performed By: #### V ITD, CMP, TSH reflex FT4, CBCAD, FE Prof #### [facility] [address] [place], [place] [id number] Protein [Mass/Vol] 6.5 g/dL Normal 6.1-8.1 [facility] [facility] [place] [facility] [employer] [facility] Comment on above: Performed By: #### V ITD, CMP, TSH reflex FT4, CBCAD, FE Prof #### [facility] [address] [place], [place] [id number] Sodium [Moles/Vol] 140 mmol/L Normal 135-146 [place] [facility] [place] [facility] [employer] [facility] Comment on above: Performed By: #### V ITD, CMP, TSH reflex FT4, CBCAD, FE Prof #### [facility] [address] [place], [place] [id number] Urea nitrogen [Mass/Vol] 19 mg/dL Normal 7-[address] [facility] Comment on above: Performed By: #### V ITD, CMP, TSH reflex FT4, CBCAD, FE Prof #### [facility] [address] [place], [place] [id number] Iron Profileon 01-13-2022 %FESAT 45 % Normal 11-[address] [facility] Comment on above: Performed By: #### V ITD, CMP, TSH reflex FT4, CBCAD, FE Prof #### [facility] [address] [place], [place] [id number] FE 129 ug/dL Normal 40-190 [facility] Comment on above: Result Comment: Refe rence range change 06/25/2017. Prior reference range F 37-145 ug/dL, M 59-158 ug/dL. Performed By: #### V ITD, CMP, TSH reflex FT4, CBCAD, FE Prof #### [facility] [address] [place], [place] [id number] TIBC 284 ug/dL Normal 250-[address] [facility] Comment on above: Performed By: #### V ITD, CMP, TSH reflex FT4, CBCAD, FE Prof #### [facility] [address] [place], [place] [id number] UIBC 155 ug/dL Normal 112-[address] [facility] Comment on above: Performed By: #### V ITD, CMP, TSH reflex FT4, CBCAD, FE Prof #### [facility] [address] [place], [place] [id number] TSH w/ Reflex to Free T4on 0 01-13-2022 TSH 3.100 uIU/mL Normal 0.400-4.500 [facility] Comment on above: Performed By: #### V ITD, CMP, TSH reflex FT4, CBCAD, FE Prof #### [facility] [address] [place], [place] [id number] US Venous, Bilateral, Lower [place] 01-13-2022 US Venous, Bilateral, Lower Ext HISTORY: [...] by Bonilla Mckeon on 01/13/2022 1441 Normal [facility] Vitamin B12/Folateon 022 Cobalamin (Vitamin B12) [Mass/Vol] 258 pg/mL Normal 211-[address] [facility] Comment on above: Performed By: #### B 12/Fol #### [facility] [address] [place], [place] [id number] FOL 11.6 ng/mL Normal >4.[address] [facility] Comment on above: Result Comment: Refe rence range change 06/25/2017. Prior reference range F 4.8-37.3 ng/mL, M 4.5-32.2 ng/mL. Performed By: #### B 12/Fol #### [facility] [address] [place], [place] [id number] Vitamin D 25-OHon 01-13-2022 VIT D 25 OH 30 ng/ml Normal >[address] [facility] Comment on above: Result Comment: Ching min D Status Deficiency <20 ng/mL Insufficiency 20-29 ng/mL Optimal 30-100 ng/mL Possible Toxicity >=150 ng/mL Performed By: #### V ITD, CMP, TSH reflex FT4, CBCAD, FE Prof #### [facility] [address] [place], [place] [id number] Vital Signs Date Time Vital Sign Value Performing Clinician Facility 05-10-2023 10:45-0400 Body height 162.56 cm Ap Duganky Other [facility] Other 05-10-2023 10:45-0400 Body mass index (BMI) [Ratio] 25.4 kg/m2 Ap Skyler Other [facility] Other 05-10-2023 10:45-0400 Body weight 67.13 kg Ap Holland Other [facility] Other 05-10-2023 10:45-0400 Diastolic blood pressure 80 mm[Hg] Ap Skyler Other [facility] Other 05-10-2023 10:45-0400 Systolic blood pressure 122 mm[Hg] Ap Skyler Other [facility] Other 04-06-2023 11:15-0400 Body height 162.56 cm Ap Skyler Other [facility] Other 04-06-2023 11:15-0400 Body mass index (BMI) [Ratio] 26.09 kg/m2 Ap Skyler Other [facility] Other 04-06-2023 11:15-0400 Body weight 68.95 kg Ap Skyler Other [facility] Other 04-06-2023 11:15-0400 Diastolic blood pressure 84 mm[Hg] Ap Skyler Other [facility] Other 04-06-2023 11:15-0400 Systolic blood pressure 124 mm[Hg] Ap Skyler Other [facility] Other 03-23-2023 11:30-0400 Body height 162.56 cm Ap Skyler Other [facility] Other 03-23-2023 11:30-0400 Body mass index (BMI) [Ratio] 26.09 kg/m2 Ap Skyler Other [facility] Other 03-23-2023 11:30-0400 Body weight 68.95 kg Ap Skyler Other [facility] Other 03-23-2023 11:30-0400 Diastolic blood pressure 84 mm[Hg] Ap Holland Other [facility] Other 03-23-2023 11:30-0400 Systolic blood pressure 140 mm[Hg] Ap Holland Other [facility] Other 03-08-2023 09:00-0400 Body height 162.56 cm Ap Holland Other [facility] Other 03-08-2023 09:00-0400 Body mass index (BMI) [Ratio] 26.74 kg/m2 Ap Holland Other [facility] Other 03-08-2023 09:00-0400 Body weight 70.67 kg Ap Holland Other [facility] Other 03-08-2023 09:00-0400 Diastolic blood pressure 80 mm[Hg] Ap Holland Other [facility] Other 03-08-2023 09:00-0400 SaO2% (BldA) [Mass fraction] 99 % Ap Holland Other [facility] Other 03-08-2023 09:00-0400 Systolic blood pressure 130 mm[Hg] Ap Holland Other [facility] Other Encounters Encounter Date Encounter Type Care [...] 05-10-2023 End: 05-10-2023 ambulatory Ap Hailey Skyler Facility:[facility] Start: 05-10-2023 End: 05-10-2023 ambulatory COLORING MACHINE OPERATOR-C Roslyn Rachna Work Phone: [facility] Work Phone: Start: 05-10-2023 End: 05-10-2023 Patient encounter procedure COLORING MACHINE OPERATOR-C Roslyn Rachna Work Phone: [facility] [place] Work Phone: Start: 04-29-2023 (PROC) PROCEDURE Ap Hart [facility] Start: 04-29-2023 End: 04-29-2023 ambulatory Apkalin Holland Other [facility] Other Start: 04-06-2023 End: 04-06-2023 ambulatory Ap Holland Other [facility] Other Start: 04-06-2023 Office outpatient vi sit 25 minutes Ap Holland [facility] Start: 03-23-2023 End: 03-23-2023 ambulatory Ap Holland Other [facility] Other Start: 03-23-2023 Office outpatient vi sit 15 minutes Ap Holland [facility] Start: 03-16-2023 (PROC) PROCEDURE Ap Hart [facility] Start: 03-16-2023 End: 03-16-2023 ambulatory Ap Holland Other [facility] Other Start: 03-09-2023 End: 03-09-2023 ambulatory Ap Holland Other [facility] Other Start: 03-09-2023 Telephone encounter Ap Holland [facility] Start: 03-08-2023 End: 03-08-2023 ambulatory Ap Holland Other [facility] Other Start: 03-08-2023 Office consultation new/estab patient 60 min Ap Holland [facility] Procedures Date Procedure Procedure Detail Performing Clinician Start: 05-10-2023 Plain X-ray of right hip COLORING MACHINE OPERATOR-C Roslyn Briscoe Work Phone: Payers Date Payer Category Payer Private Health Insurance 2023 Self-pay 2021 Medicare [id number] 1945 Unknown [id number] .16.84 [id number] 1945 Unknown [id number] .16.84 [id number] 1945 Unknown [id number] .16.84 [id number] 1945 Unknown [id number] .[id number] .[id number] 1945 Unknown [id number] 2.16.840 .1.259138.3.579.2.9 1945 Unknown [id number] 2.16.840 .1.090757.3.579.2.1258 1945 Unknown [id number] 2.16.840 .1.042231.3.579.2.1258 1945 Unknown [id number] 2.16.840 .1.601538.3.579.2.1258 1945 Unknown [id number] 2.16.840 .1.158639.3.579.2.1258 1945 Unknown [id number] 2.16. [id number] Medicare [id number] 2.1 [id number] Unknown [id number] 2.16.8 [id number] Social History Date Type Detail Facility Sex Assigned At [facility] Other Start: 1945 Sex Assigned At Female F [facility] Evaluation note 05-10-2023 Note Date [...] up in 1 week for further evaluation. [facility] Other Evaluation note 04-06-2023 Note Date & [...] (ICD-10 - G89.29) Proceed with treatment plan. [facility] Other Evaluation note 03-23-2023 Note Date & [...] (ICD-10 - G89.29) Follow up as needed [facility] Other Evaluation note 03-08-2023 Note Date & [...] negative findings were considered in medical decision-making. [facility] Other Evaluation note Note Date & Type Note Facility Evaluation note No Information [employer] Other Evaluation note Note Date & Type Note Facility Evaluation note [facility]: History general Narrative - Reported Note Date & Type Note Facility History general Narrative - Reported Type Medical History hypercholestolemia Medical History stenosis [facility] [facility] Other Summary Purpose Family History No Family [...] section and content) DATE CREATED AUTHOR 12/11/2022 [facility] DATE CREATED AUTHOR AUTHOR'S ORGANIZ ATION 05/15/2023 [facility] DATE CREATED AUTHOR AUTHOR'S ORGANIZ ATION 09/06/2023 [facility] EPIC DATE CREATED AUTHOR AUTHOR'S ORGANIZ ATION 09/16/2023 [facility] REASON FOR VISIT (unrecogniz ed section and [...] Status Dates FABIENNE Anderson Primary Care Provider Tlema Holland MD Attending Provider Active Goals (unrecognized [...] BE BASED ON THE PRIMARY CLINICAL RECORDS. [employer] provides no warranty or guarantee of the accuracy or completeness of information in this document.
[2023-10-07] MEDS: HYDROMORPHONE HCL 0.5 MG/0.5 ML SYRINGE IV (18:51)
[2023-10-07] MEDS: ONDANSETRON PF 4 MG/2 ML VIAL IV (18:51)
[2023-10-07] MEDS: 0.9 % SODIUM CHLORIDE 1,000 ML 100 ML IV (18:52)
[2023-10-07] MEDS: LABETALOL HCL 20 MG/4 ML SYRINGE IVP (18:57)
[2023-10-07 19:00] LABS: Basophils Percent Auto 0.3 % (0.2-2.0); Eosinophils Absolute Auto 0.1 10^3/uL (0.0-0.7); Hematocrit 35.7 % (36.0-48.0); Hemoglobin 12.6 g/dL (12.0-16.0); Immature Granulocytes Abs Auto 0.05 10^3/uL (0.00-0.03); Immature Granulocytes Pct Auto 0.7 % (0.0-0.5); Lymphocytes Absolute Auto 1.3 10^3/uL (1.2-3.8); Lymphocytes Percent Auto 19.2 % (20.5-60.0); Mean Corpuscular HGB Conc 35.3 g/dL (29.9-35.2); Mean Corpuscular Hemoglobin 35.8 pg (26.7-34.0); Mean Corpuscular Volume 101.4 fL (81.0-99.0); Mean Platelet Volume 9.3 fL (9.5-13.5); Monocytes Absolute Auto 0.7 10^3/uL (0.3-0.8); Neutrophils Absolute Auto 4.8 10^3/uL (1.4-6.5); Neutrophils Percent Auto 68.8 % (43.0-75.0); Platelet Count 148 10^3/uL (150-450); Red Blood Count 3.52 10^6/uL (4.20-5.40); Red Cell Distribution Width 13.5 % (11.0-15.0); White Blood Count 6.9 10^3/uL (4.0-11.0)
[2023-10-07 19:15] LABS: Prothrombin Time 10.6 sec (9.0-11.6)
[2023-10-07 19:20] LABS: Alanine Aminotransferase 43 U/L (14-59); Albumin Globulin Ratio 0.9; Albumin Level 3.2 g/dL (3.4-5.0); Alkaline Phosphatase 119 U/L (46-116); Anion Gap 15.3; Aspartate Amino Transferase 29 U/L (15-37); BUN Creatinine Ratio 22.2; Bilirubin Total 0.4 mg/dL (0.2-1.0); Calcium 9.3 mg/dL (8.5-10.1); Carbon Dioxide 22.6 mmol/L (21.0-32.0); Chloride 105 mmol/L (98-107); Estimated GFR (African America 50 (>=60); Estimated GFR (Non-African Ame 41 (>=60); Globulin 3.4 g/dL; Glucose 189 mg/dL (74-106); Potassium 3.9 mmol/L (3.5-5.1); Sodium 139 mmol/L (136-145); Total Protein 6.6 g/dL (6.4-8.2); Troponin I High Sensitivity <4.0 pg/mL (4.0-51.3)
[2023-10-07 19:25] LABS: Thyroid Stimulating Hormone 7.463 uIU/mL (0.358-3.740)
[2023-10-07] MEDS: MORPHINE SULFATE 4 MG/ML VIAL IV (19:54)
[2023-10-07 20:54] LABS: Bilirubin Urine NEGATIVE (NEGATIVE); Blood Urine NEGATIVE (NEGATIVE); Clarity Urine CLEAR (CLEAR); Color Urine YELLOW (YELLOW); Glucose Urine UA NEGATIVE (NEGATIVE); Ketones Urine TRACE mg/dL (NEGATIVE); Leukocyte Esterase Urine NEGATIVE (NEGATIVE); Nitrite Urine POSITIVE (NEGATIVE); Protein Urine NEGATIVE (NEG/TRACE); Specific Gravity Urine >=1.030 (1.005-1.025); Urobilinogen Urine 0.2 EU/dL (0.2-1.0); pH Urine 5.5 (5.0-9.0)
[2023-10-07 20:55] LABS: Urine Microscopic Indicated YES
[2023-10-07 21:01] LABS: Bacteria Urine LARGE #/HPF (NONE SEEN); Crystals Seen? Seen #/HPF (None Seen); Mucus Urine SMALL (NONE SEEN); RBC Urine 0-2 #/HPF (0-2); Squamous Epithelial Cell Urine RARE #/LPF (NONE/RARE)
[2023-10-07 21:02] LABS: Calcium Oxalate Crystals Urine FEW; Cast Seen? NONE SEEN #/LPF (NONE SEEN); Urine Culture Indicated YES
[2023-10-07] MEDS: CEFTRIAXONE 1,000 MG in 0.9 % SODIUM CHLORIDE 50 ML 100 MG IV (22:18)
--- OUTSIDE RECORDS SUMMARY | 2023-10-07 22:35 | XMS_ITS | CCD ---
Author Name Unknown Address [address] [facility] [address] [place] [address] Organization [facility] Care Team Providers Care Senior Research Scientist Name Role Phone Ap Holland Unavailable FABIENNE [...] Facility (7 sources) Pollen Drug allergy Unknown [facility] Other Medications Current Medications Medication Drug Class(es) [...] 05-10-2023 XR hip RT min 2V(w/wo pelvis)* [facility] [place] [address] [place] [address] XRay Report Signed Patient: Yvonne Liz MR#: [id number] 15 : 1945 Acct:[id number] Age/Sex: 77 / F ADM Date: 05/10/23 Loc: XD Room: Type: [facility] Attending Dr: Ap Holland MD Copies to: [...] Nick Stokes M.D.05/10/2023 3:23 PM Dictation Location: [place] [address] Transcribed By: [facility] 05/10/23 152 Dictated By: Nick Stokes DO 05/10/23 1521 Signed By: 05/10/23 1523 Normal [facility] XR Spine Lumbar Complete w/F maxi AND [place] 12-10-2022 XR Spine Lumbar Complete w/Flex AND [...] by Roosevelt Motley on 12/10/2022 1457 Normal [facility] Specialist XR Hip Complete Right*on XR Hip Complete Right* HISTORY: Posterior hip radiating pain falls x 2 years FINDINGS: Mild bilateral superior medial hip joint space loss. No pincer or CAM deformities. Prominent arterial calcifications. IMPRESSION: 1. 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 Report reported and signed by Bonilla Mckeno on 04/29/2022 1031 Normal [facility] Complete Blood Count with Au to Diffon 01-13-2022 Basophils (Bld) [#/Vol] 0.06 10*3/uL Normal 0.00-0.20 [facility] Specialist Comment on above: Performed By: #### V ITD, CMP, TSH reflex FT4, CBCAD, FE Prof #### [facility] [address] [place], [place] [id number] Basophils/100 WBC (Bld) 1.3 % Normal [facility] Comment on above: Performed By: #### V ITD, CMP, TSH reflex FT4, CBCAD, FE Prof #### [facility] [address] [place], [place] [id number] Eosinophils (Bld) [#/Vol] 0.36 10*3/uL Normal 0.02-0.50 [facility] Specialist Comment on above: Performed By: #### V ITD, CMP, TSH reflex FT4, CBCAD, FE Prof #### [facility] [address] [place], [place] [id number] Eosinophils/100 WBC (Bld) 7.6 % Normal [facility] Specialist Comment on above: Performed By: #### V ITD, CMP, TSH reflex FT4, CBCAD, FE Prof #### [facility] [address] [place], [place] [id number] Erythrocyte distribution width (RBC) [Ratio] 12.1 % Normal 11.0-15.0 [facility] Specialist Comment on above: Performed By: #### V ITD, CMP, TSH reflex FT4, CBCAD, FE Prof #### [facility] [address] [place], [place] [id number] Hematocrit (Bld) [Volume fraction] 34.0 % Low 35.0-47.0 [facility] Specialist Comment on above: Performed By: #### V ITD, CMP, TSH reflex FT4, CBCAD, FE Prof #### [facility] [address] [place], [place] [id number] Hemoglobin (Bld) [Mass/Vol] 11.9 g/dL Normal 11.6-15.5 [facility] Specialist Comment on above: Performed By: #### V ITD, CMP, TSH reflex FT4, CBCAD, FE Prof #### [facility] [address] [place], [place] [id number] Lymphocytes (Bld) [#/Vol] 1.2 10*3/uL Normal 0.9-3.9 [facility] [employer]ant Comment on above: Performed By: #### V ITD, CMP, TSH reflex FT4, CBCAD, FE Prof #### [facility] [address] [place], [place] [id number] Lymphocytes/100 WBC (Bld) 26.1 % Normal [facility] Specialist Comment on above: Performed By: #### V ITD, CMP, TSH reflex FT4, CBCAD, FE Prof #### [facility] [address] [place], [place] [id number] MCH (RBC) [Entitic mass] 34.0 pg High 27.0-33.0 [facility] [employer] Comment on above: Performed By: #### V ITD, CMP, TSH reflex FT4, CBCAD, FE Prof #### [facility] [address] [place], [place] [id number] MCHC (RBC) [Mass/Vol] 35.0 g/dL Normal 32.0-36.0 [facility] [employer] Comment on above: Performed By: #### V ITD, CMP, TSH reflex FT4, CBCAD, FE Prof #### [facility] [address] [place], [place] [id number] MCV (RBC) [Entitic vol] 97 fL Normal 80-100 [facility] [employer] Comment on above: Performed By: #### V ITD, CMP, TSH reflex FT4, CBCAD, FE Prof #### [facility] [address] [place], [place] [id number] Monocytes (Bld) [#/Vol] 0.4 10*3/uL Normal 0.2-0.9 [facility] Specialist Comment on above: Performed By: #### V ITD, CMP, TSH reflex FT4, CBCAD, FE Prof #### [facility] [address] [place], [place] [id number] Monocytes/100 WBC (Bld) 8.9 % Normal [facility] Specialist Comment on above: Performed By: #### V ITD, CMP, TSH reflex FT4, CBCAD, FE Prof #### [facility] [address] [place], [place] [id number] Neutrophils (Bld) [#/Vol] 2.6 10*3/uL Normal 1.5-7.8 [facility] Specialist Comment on above: Performed By: #### V ITD, CMP, TSH reflex FT4, CBCAD, FE Prof #### [facility] [address] [place], [place] [id number] Neutrophils/100 WBC (Bld) 55.9 % Normal [facility] Specialist Comment on above: Performed By: #### V ITD, CMP, TSH reflex FT4, CBCAD, FE Prof #### [facility] [address] [place], [place] [id number] Platelet mean volume (Bld) [Entitic vol] 11.00 fL Normal 7.50-12.50 [facility] Specialist Comment on above: Performed By: #### V ITD, CMP, TSH reflex FT4, CBCAD, FE Prof #### [facility] [address] [place], [place] [id number] Platelets (Bld) [#/Vol] 102 10*3/uL Low 140-400 [facility] Specialist Comment on above: Performed By: #### V ITD, CMP, TSH reflex FT4, CBCAD, FE Prof #### [facility] [address] [place], [place] [id number] RBC (Bld) [#/Vol] 3.50 10*6/uL Low 3.90-5.20 [facility] Specialist Comment on above: Performed By: #### V ITD, CMP, TSH reflex FT4, CBCAD, FE Prof #### [facility] [address] [place], [place] [id number] RDW-SD 42.1 fL Normal 37.0-50.0 [facility] [employer] Comment on above: Performed By: #### V ITD, CMP, TSH reflex FT4, CBCAD, FE Prof #### [facility] [address] [place], [place] [id number] WBC (Bld) [#/Vol] 4.7 10*3/uL Normal 3.8-11.0 [facility] [place] [employer] Comment on above: Performed By: #### V ITD, CMP, TSH reflex FT4, CBCAD, FE Prof #### [facility] [address] [place], [place] [id number] Comprehensive Metabolic Pane [facility] 01-13-2022 Albumin [Mass/Vol] 4.2 g/dL Normal 3.6-5.1 [facility] [place] [employer] Comment on above: Performed By: #### V ITD, CMP, TSH reflex FT4, CBCAD, FE Prof #### [facility] [address] [place], [place] [id number] Albumin/Globulin [Mass ratio] 1.8 {ratio} Normal 1.0-2.5 [facility] [employer] Comment on above: Performed By: #### V ITD, CMP, TSH reflex FT4, CBCAD, FE Prof #### [facility] [address] [place], [place] [id number] ALP [Catalytic activity/Vol] 83 U/L Normal 35-119 [facility] [employer] Comment on above: Performed By: #### V ITD, CMP, TSH reflex FT4, CBCAD, FE Prof #### [facility] [address] [place], [place] [id number] ALT [Catalytic activity/Vol] 28 U/L Normal 6-33 [facility] [employer] Comment on above: Result Comment: 07/09 Female reference range changed. Performed By: #### V ITD, CMP, TSH reflex FT4, CBCAD, FE Prof #### [facility] [address] [place], [place] [id number] Anion gap [Moles/Vol] 12 mmol/L Normal 12-20 [facility] [employer] Comment on above: Result Comment: Effe ctive 08/14/2019 reference range changed. Performed By: #### V ITD, CMP, TSH reflex FT4, CBCAD, FE Prof #### [facility] [address] [place], [place] [id number] AST [Catalytic activity/Vol] 36 U/L High 9-34 [facility] Comment on above: Performed By: #### V ITD, CMP, TSH reflex FT4, CBCAD, FE Prof #### [facility] [address] [place], [place] [id number] Bilirubin [Mass/Vol] 0.48 mg/dL Normal 0.30-1.20 [facility] Comment on above: Performed By: #### V ITD, CMP, TSH reflex FT4, CBCAD, FE Prof #### [facility] [address] [place], [place] [id number] BUN/CREA 19 Ratio Normal 6-22 [facility] Specialist Comment on above: Performed By: #### V ITD, CMP, TSH reflex FT4, CBCAD, FE Prof #### [facility] [address] [place], [place] [id number] Calcium [Mass/Vol] 9.5 mg/dL Normal 8.6-10.[address] [facility] Comment on above: Performed By: #### V ITD, CMP, TSH reflex FT4, CBCAD, FE Prof #### [facility] [address] [place], [place] [id number] Chloride [Moles/Vol] 105 mmol/L Normal 98-107 [facility] Specialist Comment on above: Performed By: #### V ITD, CMP, TSH reflex FT4, CBCAD, FE Prof #### [facility] [address] [place], [place] [id number] CO2 [Moles/Vol] 27 mmol/L Normal 20-31 [facility] Comment on above: Performed By: #### V ITD, CMP, TSH reflex FT4, CBCAD, FE Prof #### [facility] [address] [place], [place] [id number] Creatinine [Mass/Vol] 1.0 mg/dL Normal 0.6-1.4 [facility] Comment on above: Performed By: #### V ITD, CMP, TSH reflex FT4, CBCAD, FE Prof #### [facility] [address] [place], [place] [id number] eGFRAA 67 mL/min/1.73m2 Normal >60 [facility] [employer] Comment on above: Performed By: #### V ITD, CMP, TSH reflex FT4, CBCAD, FE Prof #### [facility] [address] [place], [place] [id number] eGFRNAA 55 mL/min/1.73m2 Low >60 [facility] [employer] Comment on above: Performed By: #### V ITD, CMP, TSH reflex FT4, CBCAD, FE Prof #### [facility] [address] [place], [place] [id number] Globulin (S) [Mass/Vol] 2.3 g/dL Normal 1.9-3.7 [facility] [employer] Comment on above: Performed By: #### V ITD, CMP, TSH reflex FT4, CBCAD, FE Prof #### [facility] [address] [place], [place] [id number] Glucose [Mass/Vol] 85 mg/dL Normal 65-99 [place] [employer] Comment on above: Result Comment: For FASTING Glucose --- ADA reference ranges: Normal 65-99 mg/dl Prediabetes 100-125 Diabetes >/= 126 Performed By: #### V ITD, CMP, TSH reflex FT4, CBCAD, FE Prof #### [facility] [address] [place], [place] [id number] Potassium [Moles/Vol] 3.8 mmol/L Normal 3.5-5.5 [facility] [employer] Comment on above: Performed By: #### V ITD, CMP, TSH reflex FT4, CBCAD, FE Prof #### [facility] [address] [place], [place] [id number] Protein [Mass/Vol] 6.5 g/dL Normal 6.1-8.1 [place] [facility] [employer] Comment on above: Performed By: #### V ITD, CMP, TSH reflex FT4, CBCAD, FE Prof #### [facility] [address] [place], [place] [id number] Sodium [Moles/Vol] 140 mmol/L Normal 135-146 [place] [facility] [employer] Comment on above: Performed By: #### V ITD, CMP, TSH reflex FT4, CBCAD, FE Prof #### [facility] [address] [place], [place] [id number] Urea nitrogen [Mass/Vol] 19 mg/dL Normal 7-25 [facility] Specialist Comment on above: Performed By: #### V ITD, CMP, TSH reflex FT4, CBCAD, FE Prof #### [facility] [address] [place], [place] [id number] Iron Profileon 01-13-2022 %FESAT 45 % Normal 11-50 [facility] Specialist Comment on above: Performed By: #### V ITD, CMP, TSH reflex FT4, CBCAD, FE Prof #### [facility] [address] [place], [place] [id number] FE 129 ug/dL Normal 40-190 [facility] [employer] Comment on above: Result Comment: Refe rence range change 06/25/2017. Prior reference range F 37-145 ug/dL, M 59-158 ug/dL. Performed By: #### V ITD, CMP, TSH reflex FT4, CBCAD, FE Prof #### [facility] [address] [place], [place] [id number] TIBC 284 ug/dL Normal 250-450 [facility] Specialist Comment on above: Performed By: #### V ITD, CMP, TSH reflex FT4, CBCAD, FE Prof #### [facility] [address] [place], [place] [id number] UIBC 155 ug/dL Normal 112-347 [facility] Specialist Comment on above: Performed By: #### V ITD, CMP, TSH reflex FT4, CBCAD, FE Prof #### [facility] [address] [place], [place] [id number] TSH w/ Reflex to Free T4on 0 01-13-2022 TSH 3.100 uIU/mL Normal 0.400-4.500 [facility] [employer] Comment on above: Performed By: #### V ITD, CMP, TSH reflex FT4, CBCAD, FE Prof #### [facility] [address] [place], [place] [id number] US Venous, Bilateral, Lower [place] 01-13-2022 US Venous, Bilateral, Lower Ext HISTORY: [...] by Bonilla Mckeon on 01/13/2022 1441 Normal [facility] Vitamin B12/Folateon 022 Cobalamin (Vitamin B12) [Mass/Vol] 258 pg/mL Normal 211-946 [facility] Specialist Comment on above: Performed By: #### B 12/Fol #### [facility] [address] [place], [place] [id number] FOL 11.6 ng/mL Normal >4.7 [facility] Specialist Comment on above: Result Comment: Refe rence range change 06/25/2017. Prior reference range F 4.8-37.3 ng/mL, M 4.5-32.2 ng/mL. Performed By: #### B 12/Fol #### [facility] [address] [place], [place] [id number] Vitamin D 25-OHon 01-13-2022 VIT D 25 OH 30 ng/ml Normal >29 [facility] Specialist Comment on above: Result Comment: Ching min D Status Deficiency <20 ng/mL Insufficiency 20-29 ng/mL Optimal 30-100 ng/mL Possible Toxicity >=150 ng/mL Performed By: #### V ITD, CMP, TSH reflex FT4, CBCAD, FE Prof #### [facility] [address] [place], [place] [id number] Vital Signs Date Time Vital Sign Value Performing Clinician Facility 05-10-2023 10:45-0400 Body height 162.56 cm Ap Duganky Other [facility] Other 05-10-2023 10:45-0400 Body mass index (BMI) [Ratio] 25.4 kg/m2 Ap Skyler Other [facility] Other 05-10-2023 10:45-0400 Body weight 67.13 kg Ap Holland Other [facility] Other 05-10-2023 10:45-0400 Diastolic blood pressure 80 mm[Hg] Ap Skyler Other [facility] Other 05-10-2023 10:45-0400 Systolic blood pressure 122 mm[Hg] Ap Skyler Other [facility] Other 04-06-2023 11:15-0400 Body height 162.56 cm Ap Skyler Other [facility] Other 04-06-2023 11:15-0400 Body mass index (BMI) [Ratio] 26.09 kg/m2 Ap Skyler Other [facility] Other 04-06-2023 11:15-0400 Body weight 68.95 kg Ap Skyler Other [facility] Other 04-06-2023 11:15-0400 Diastolic blood pressure 84 mm[Hg] Ap Skyler Other [facility] Other 04-06-2023 11:15-0400 Systolic blood pressure 124 mm[Hg] Ap Skyler Other [facility] Other 03-23-2023 11:30-0400 Body height 162.56 cm Ap Skyler Other [facility] Other 03-23-2023 11:30-0400 Body mass index (BMI) [Ratio] 26.09 kg/m2 Ap Skyler Other [facility] Other 03-23-2023 11:30-0400 Body weight 68.95 kg Ap Skyler Other [facility] Other 03-23-2023 11:30-0400 Diastolic blood pressure 84 mm[Hg] Ap Holland Other [facility] Other 03-23-2023 11:30-0400 Systolic blood pressure 140 mm[Hg] Ap Holland Other [facility] Other 03-08-2023 09:00-0400 Body height 162.56 cm Ap Holland Other [facility] Other 03-08-2023 09:00-0400 Body mass index (BMI) [Ratio] 26.74 kg/m2 Ap Holland Other [facility] Other 03-08-2023 09:00-0400 Body weight 70.67 kg Ap Holland Other [facility] Other 03-08-2023 09:00-0400 Diastolic blood pressure 80 mm[Hg] Ap Holland Other [facility] Other 03-08-2023 09:00-0400 SaO2% (BldA) [Mass fraction] 99 % Ap Holland Other [facility] Other 03-08-2023 09:00-0400 Systolic blood pressure 130 mm[Hg] Ap Holland Other [facility] Other Encounters Encounter Date Encounter Type Care [...] 05-10-2023 End: 05-10-2023 ambulatory Ap Hailey Skyler Facility:[facility] Start: 05-10-2023 End: 05-10-2023 ambulatory [employer] Roslyn Rachna Work Phone: [facility] Work Phone: Start: 05-10-2023 End: 05-10-2023 Patient encounter procedure [employer] Roslyn Rachna Work Phone: [facility] [place] Work Phone: Start: 04-29-2023 (PROC) PROCEDURE Ap Hart [facility] Start: 04-29-2023 End: 04-29-2023 ambulatory Apkalin Holland Other [facility] Other Start: 04-06-2023 End: 04-06-2023 ambulatory Ap Holland Other [facility] Other Start: 04-06-2023 Office outpatient vi sit 25 minutes Ap Holland [facility] Start: 03-23-2023 End: 03-23-2023 ambulatory Ap Holland Other [facility] Other Start: 03-23-2023 Office outpatient vi sit 15 minutes Ap Holland [facility] Start: 03-16-2023 (PROC) PROCEDURE Ap Hart [facility] Start: 03-16-2023 End: 03-16-2023 ambulatory Ap Holland Other [facility] Other Start: 03-09-2023 End: 03-09-2023 ambulatory Ap Holland Other [facility] Other Start: 03-09-2023 Telephone encounter Ap Holland [facility] Start: 03-08-2023 End: 03-08-2023 ambulatory Ap Holland Other [facility] Other Start: 03-08-2023 Office consultation new/estab patient 60 min Ap Holland [facility] Procedures Date Procedure Procedure Detail Performing Clinician Start: 05-10-2023 Plain X-ray of right hip [employer] Roslyn Briscoe Work Phone: Payers Date Payer Category Payer Private Health Insurance 2023 Self-pay 2021 Medicare [id number] 1945 Unknown [id number] .16.84 [id number] 1945 Unknown [id number] .16.84 [id number] 1945 Unknown [id number] .16.84 [id number] 1945 Unknown [id number] .[id number] .[id number] 1945 Unknown [id number] 2.16.840 .1.756730.3.579.2.9 1945 Unknown [id number] 2.16.840 .[id number] 1945 Unknown [id number] 2.16.840 .1.227786.3.579.2.1258 1945 Unknown [id number] 2.16.840 .[id number] 1945 Unknown [id number] 2.16.840 .[id number] 1945 Unknown [id number] 2.16. [id number] Medicare [id number] 2.1 [id number] Unknown [id number] 2.16.8 [id number] Social History Date Type Detail Facility Sex Assigned At [facility] Other Start: 1945 Sex Assigned At Female F [facility] Evaluation note 05-10-2023 Note Date [...] up in 1 week for further evaluation. [facility] Other Evaluation note 04-06-2023 Note Date & [...] (ICD-10 - G89.29) Proceed with treatment plan. [facility] Other Evaluation note 03-23-2023 Note Date & [...] (ICD-10 - G89.29) Follow up as needed [facility] Other Evaluation note 03-08-2023 Note Date & [...] negative findings were considered in medical decision-making. [facility] Other Evaluation note Note Date & Type Note Facility Evaluation note No Information [facility] Other Evaluation note Note Date & Type Note Facility Evaluation note [facility]: History general Narrative - Reported Note Date & Type Note Facility History general Narrative - Reported Type Medical History hypercholestolemia Medical History stenosis [facility] Other Summary Purpose Family History No Family [...] section and content) DATE CREATED AUTHOR 12/11/2022 [facility] DATE CREATED AUTHOR AUTHOR'S ORGANIZ ATION 05/15/2023 [facility] DATE CREATED AUTHOR AUTHOR'S ORGANIZ ATION 09/06/2023 [facility] dical Specialists EPIC DATE CREATED AUTHOR AUTHOR'S ORGANIZ ATION 09/16/2023 [facility] REASON FOR VISIT (unrecogniz ed section [...] BE BASED ON THE PRIMARY CLINICAL RECORDS. [employer] provides no warranty or guarantee of the accuracy or completeness of information in this document.
[2023-10-08] VITALS (27 sets, daily range): BP systolic 101–187; BP diastolic 64–95; PULSE 80–96; RESP 16–24; TEMP 36.4–36.7; O2SAT 94–98
[2023-10-08] MEDS: MORPHINE SULFATE 2 MG/ML SYRINGE IV ×4 (00:12→19:48)
[2023-10-08] MEDS: HYDRALAZINE HCL 20 MG/ML VIAL 10 MG IVP ×2 (04:32→09:22)
[2023-10-08 04:59] LABS: Basophils Percent Auto 0.1 % (0.2-2.0); Eosinophils Percent Auto 0.4 % (0.9-7.0); Hemoglobin 11.3 g/dL (12.0-16.0); Immature Granulocytes Abs Auto 0.03 10^3/uL (0.00-0.03); Immature Granulocytes Pct Auto 0.4 % (0.0-0.5); Lymphocytes Absolute Auto 0.8 10^3/uL (1.2-3.8); Lymphocytes Percent Auto 10.3 % (20.5-60.0); Mean Corpuscular HGB Conc 33.2 g/dL (29.9-35.2); Mean Corpuscular Volume 102.4 fL (81.0-99.0); Mean Platelet Volume 9.3 fL (9.5-13.5); Monocytes Absolute Auto 0.7 10^3/uL (0.3-0.8); Monocytes Percent Auto 9.1 % (1.7-12.0); Neutrophils Absolute Auto 6.4 10^3/uL (1.4-6.5); Neutrophils Percent Auto 79.7 % (43.0-75.0); Platelet Count 114 10^3/uL (150-450); Red Blood Count 3.32 10^6/uL (4.20-5.40); Red Cell Distribution Width 13.4 % (11.0-15.0); White Blood Count 8.1 10^3/uL (4.0-11.0)
[2023-10-08 05:42] LABS: Alanine Aminotransferase 40 U/L (14-59); Albumin Globulin Ratio 0.9; Albumin Level 2.9 g/dL (3.4-5.0); Alkaline Phosphatase 100 U/L (46-116); Aspartate Amino Transferase 23 U/L (15-37); Bilirubin Total 0.3 mg/dL (0.2-1.0); Carbon Dioxide 24.4 mmol/L (21.0-32.0); Chloride 107 mmol/L (98-107); Estimated GFR (African America >60 (>=60); Estimated GFR (Non-African Ame >60 (>=60); Globulin 3.3 g/dL; Glucose 115 mg/dL (74-106); Potassium 4.4 mmol/L (3.5-5.1); Sodium 141 mmol/L (136-145); Total Protein 6.2 g/dL (6.4-8.2)
--- NOTE | 2023-10-08 08:59 | CM.NOTE ---
Called Anupama in Cardiopulmonary about echo for pt. Pt is scheduled for OR at 12:30 and will need echo prior and then Cardiology will be notified of consult for pt. Sarah school attendance secretary on Med-Surg had faxed consult and attempting to call consult.
--- NOTE | 2023-10-08 09:08 | CA_ITS ---
Patient Name: DEXTER MCCARTHY MR#: [id number] : 1945 Exam Date: 10/08/2023 Ordering Doctor: DIAN MOE ECHOCARDIOGRAM REPORT PROCEDURE: CA ECHO DOPPLER COMPLETE INDICATIONS: Pre op eval, Arrhythmia COMPARISON: None. DESCRIPTION: COMPLETE ECHOCARDIOGRAM Real-time transthoracic echocardiography with 2D, M-mode, spectral and color flow Doppler performed. QUALITY: Technical quality was good. 64 , 148#, BSA 1.72 m2 LEFT VENTRICLE: Small chamber size. Mildly increased left ventricular wall thickness.. LV EF: Global left ventricular systolic function is hyperdynamic; visually estimated ejection fraction is 65 to 70%. No obvious wall motion abnormalities. DIASTOLIC: Diastolic function is indeterminate. ATRIAL SEPTUM: Inadequately seen. LEFT ATRIUM: Normal chamber size. RIGHT ATRIUM: Normal chamber size. RIGHT VENTRICLE: Normal chamber size. Normal right ventricular systolic function. TRICUSPID VALVE: Normal mobility and thickness. No stenosis with trivial regurgitation. Doppler studies reveal mildly (35-45) elevated right sided pressures. RVSP 45 mmHg MITRAL VALVE: Normal mobility and thickness. No evidence of mitral valve stenosis. Mild mitral annular calcification. No mitral regurgitation. AORTIC VALVE: Normal trileaflet appearance. Mildly calcified aortic valve. Mildly diminished mobility. No evidence of aortic valve stenosis. No aortic regurgitation. AORTIC ROOT: Normal diameter and appearance. PULMONIC VALVE: Normal thickness and mobility. No stenosis. Trivial regurgitation. PERICARDIUM: Anterior free space; trivial effusion versus fat pad. IVC: Collapses with inspirations. CONCLUSION: 1. Global left ventricular systolic function is hyperdynamic; visually estimated ejection fraction is 65 to 70% 2. Normal right ventricular size and systolic function 3. Mildly increased left ventricular wall thickness 4. Diastolic function is indeterminate 5. Mildly elevated right ventricular systolic pressure; RVSP 45 mmHg 6. No significant valvular abnormalities; valves are poorly seen 7. Anterior free space; trivial effusion versus fat pad Adult Echocardiography Procedure Report Left Ventricle LVEDD (3.7 - 5.6 cm): 3.29 cm LVESD (2.2 - 4.0 cm): 2.67 cm LVIVS thickness (0.6 - 1.2 cm): 0.99 cm LVPW thickness (0.5 - 1.0 cm): 1.31 cm e': 0.07 m/s E - e': 10.09 LVOT Max Gradient: 4.18 mm[Hg] LVOT Area (cm2): 1.02 m/s Peak Velocity (LVOT): 1.02 m/s Mean Velocity (LVOT): 0.62 m/s LVOT Diameter 2.26 cm Left Atrium LA Volume Index (2D A2C): 27.91 ml/m2 Left Atrium Systolic Dimension: 3.73 cm Mitral Valve MV E to A Ratio: 0.69 Mitral Valve A-Wave Peak Velocity: 1.00 m/s Mitral Valve E-Wave Peak Velocity: 0.69 m/s Right Ventricle Aorta AO Root Diam: 3.30 cm Ascending Ao Diam: 3.12 cm Aortic Valve AoV Area (Peak Jose): 2.36 cm2, 2.36 cm2 AoV Area (VTI): 3.02 cm2, 3.02 cm2 Peak Velocity(Antegrade Flow): 1.73 m/s Peak Gradient(Antegrade Flow): 12.02 mm[Hg] Mean Velocity(Antegrade Flow): 1.13 m/s Mean Gradient(Antegrade Flow): 5.80 mm[Hg] Velocity Time Integral: 29.54 cm Tricuspid Valve Peak Velocity (Regurgitant Flow): 3.23 m/s Pulmonic Valve Mean Gradient: 3.20 mm[Hg], 1.98 mm[Hg] Mean Velocity: 0.87 m/s, 0.66 m/s Peak Velocity: 1.02 m/s, 1.13 m/s Peak Gradient: 5.13 mm[Hg], 4.96 mm[Hg], 3.50 mm[Hg] Right Atrium Dictated by: Kavin Rosales M.D. on 10/08/2023 at 12:32 Approved by: Kavin Rosales M.D. on 10/08/2023 at 12:36
--- NOTE | 2023-10-08 09:14 | P.CN_ITS ---
<Statement entered by ROCÍO BRAUN - 10/13/23 00:22> This documentation has been reviewed and approved. Consult Note: HPI Data of Consult Patient: new to practice Consult date: 10/08/23 Requesting Physician: Adelina Bolton NP Primary Care Provider: FRENIE LEONG Consult Narrative Reason for consult: Pre op Cardiovascular evaluation Narrative: Pleasant 77 yo female presented to ED s/p fall and was noted to have fractured femoral neck/hip and is planned for surgery today at 12:30 pm. Pt denied any personal cardiac history/ cardiac procedures or surgery. Denied any recent chest pain, SOB, orthopnea. Admits occasional leg/ankle swelling that resolves spontaneously. States her biggest issue is vertigo over the last year and admits to 7 falls since Jul. She admits dizziness especially with first lying down at night and sitting up in the morning. She has been treated for vertigo by her PCP, and has not been evaluated by ENT, Neuro or Vestibular therapy. Currently denied any Chest pain, palpitations, ROSS, Orthopnea. Admits Rt leg pain r/t fracture. cc:: CC: Adelina Bolton NP Review of Systems ROS Status of ROS 10 or more systems reviewed and unremark able except as noted in history and below Cardiovascular Reports: lightheadedness; Denies: chest pain, palpitations, edema, swelling of feet/ankles or shortness of breath with exertion Respiratory Denies: shortness of breath or cough Musculoskeletal Reports: joint pain Neurological Reports: dizziness and vertigo; Denies: numbness in extremities or weakness in extremities [facility] Medical History (Updated 10/08/23 @ 10:08 by DIAN MOE) Irregular heartbeat ?I49.9 - Cardiac arrhythmia, unspecified (ICD-10) Acid reflux ?K21.9 - Gastro-esophageal reflux disease without esophagitis (ICD-10) Rheumatoid arthritis ?M06.9 - Rheumatoid arthritis, unspecified (ICD-10) Osteoarthritis ?M19.90 - Unspecified osteoarthritis, unspecified site (ICD-10) Hearing deficit ?H91.90 - Unspecified hearing loss, unspecified ear (ICD-10) Hypertension ?I10 - Essential (primary) hypertension (ICD-10) High cholesterol ?E78.00 - Pure hypercholesterolemia, unspecified (ICD-10) Family History (Updated 10/08/23 @ 09:27 by DIAN MOE) Father Family history of hypertension Family history of stroke Mother Family history of hypertension Family history of myocardial infarction, Onset Age: 45 Social History Within the past year, how often did you have a drink containing alcohol: monthly or less Within the past year, how often did you have six or more drinks on one occasion: never Smoking status: Never smoker Non-prescribed substance use: denies use 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 Known occupational exposures/hazards: No Highest level of school completed/degree received: Master's degree Are you now , , , , never or living with a partner: In a typical week, how many times do you talk on the telephone with family, friends, or neighbors: twice per week How often do you get together with friends or relatives: twice per week How often do you attend restoration or moravian services: 4 or more times per year Little interest or pleasure in doing things: not at all Feeling down, depressed, or hopeless: not at all Feel stressed/tense/nervous/anxious/difficulty sleeping: only a little Life stressor details: medical issues Gender Identity: female Meds Home Medications and Allergies Home Medications Medication Instructions Recorded Confirmed Type atorvastatin 10 mg tablet 10 mg PO DAILY 07/29/23 10/07/23 History levothyroxine 75 mcg tablet 75 mcg PO DAILY 07/29/23 10/07/23 History metoprolol succinate 25 mg 25 mg PO DAILY 07/29/23 10/07/23 History tablet,extended release 24 hr omeprazole 40 mg capsule,delayed 40 mg PO DAILY 07/29/23 10/07/23 History release acetaminophen 500 mg tablet 1,000 mg PO Q6H PRN pain 09/13/23 10/07/23 History (Tylenol Extra Strength) meclizine 25 mg tablet 25 mg PO BID 09/13/23 10/07/23 History tramadol 50 mg tablet 50 mg PO TID 09/13/23 10/07/23 History Allergies Allergy/AdvReac Type Severity Reaction Status Date / Time No Known Drug Allergies Allergy Verified 09/27/23 09:00 Exam Constitutional Vital Signs, click to edit/add: Last Vital Signs Temp 97.5 F L 10/08/23 04:32 Pulse 83 10/08/23 07:56 Resp 20 10/08/23 04:32 BP 149/79 H 10/08/23 05:37 Pulse Ox 94 L 10/08/23 06:00 O2 Del Method Room Air 10/08/23 04:32 Common normals: no apparent distress, average body habitus, oriented x3, no limitations, healthy appearing, alert and well nourished Respiratory Common normals: normal respiratory effort, no use of accessory muscles and clear to auscultation bilaterally Cardio Common normals: no JVD, regular rate, regular rhythm, S1 normal heart sound, S2 normal heart sound, no gallops, no clicks, no murmurs, no rub and peripheral pulses 2+ throughout Extremity Common normals: normal capillary refill, no clubbing, cyanosis or edema and no pedal edema Other: Rt leg externally rotated and shortened Neuro Common normals: oriented x3, CN's II-XII intact bilaterally and no focal motor deficits Results Labs Labs: Short CBC 10/07/23 10/08/23 Range/Units 18:50 04:42 WBC 6.9 8.1 (4.0-11.0) 10^3/uL Hgb 12.6 11.3 L (12.0-16.0) g/dL Hct 35.7 L 34.0 L (36.0-48.0) % Plt Count 148 L 114 L (150-450) 10^3/uL BMP 10/07/23 10/08/23 18:50 04:42 Sodium 139 141 Potassium 3.9 4.4 Chloride 105 107 Carbon Dioxide 22.6 24.4 BUN 28.0 H 24.0 H Creatinine 1.26 H 0.89 Glucose 189 H 115 H Calcium 9.3 9.0 Liver Function 10/07/23 10/08/23 Range/Units 18:50 04:42 Total Bilirubin 0.4 0.3 (0.2-1.0) mg/dL AST 29 23 (15-37) U/L ALT 43 40 (14-59) U/L Alkaline Phosphatase 119 H 100 (46-116) U/L Albumin 3.2 L 2.9 L (3.4-5.0) g/dL Urine 10/07/23 Range/Units 20:35 Urine Color Yellow (YELLOW) Urine Clarity Clear (CLEAR) Urine pH 5.5 (5.0-9.0) Ur Specific [place] >=1.030 A (1.005-1.025) Urine Protein Negative (NEG/TRACE) mg/dL Urine Glucose (UA) Negative (NEGATIVE) mg/dL Troponin HS- negative TSH elevated 7.463 ECG Attestation: ?I have reviewed the pertinent ECG results. Interpretation: Sinus rhythm- sinus arrhythmia- no acute ST or T wave changes Imaging echocardiogram: My impression: Awaiting Echo completion Chest x-ray: Radiologist's impression: Procedure: XR chest 1V EXAM: XR chest 1V HISTORY: Dizzy, fall COMPARISON: None. TECHNIQUE: One view chest FINDINGS: The heart size is upper normal. There is atherosclerosis of the thoracic aorta. The lungs are clear. There is asymmetric elevation of the right hemidiaphragm. There is no pleural effusion or pneumothorax. There is an old, healed left posterior sixth rib fracture. XR/XR chest 1V IMPRESSION: No acute abnormality. Assessment and Plan Assessment and Plan (1) Sinus arrhythmia seen on electrocardiogram: Assessment and Plan: No acute concerns noted on EKG- Sinus arrythmia noted, no acute ST or T wave changes noted. Arrythmia may be R/t hypothyroidism, absolutely asymptomatic currently (2) Vertigo: Assessment and Plan: managed my primary service (3) Dizziness: Assessment and Plan: managed by primary service (4) Fall: Assessment and Plan: seems to be r/t vertigo, but she may have orthostatic hypotension and/ or neurocardiogenic components that have not be explored. She may benefit from further evaluation outpt from [place] [facility], Neurology evaluation, ENT evaluation and possibly vestibular PT. Qualifiers: Encounter type: subsequent encounter Qualified Code(s): W19.XXXD - Unspecified fall, subsequent encounter (5) Femoral neck fracture: Assessment and Plan: managed my ortho Qualifiers: Encounter type: subsequent encounter Fracture type: closed (6) Hypothyroid: Assessment and Plan: as per primary service (7) Essential (primary) hypertension: Assessment and Plan: CUrrently HTN stable in light of acute pain from femur fracture. (8) Pre-operative cardiovascular examination: Assessment and Plan: RCRI-0?points Class I Risk 3.9?% 30-day risk of , IA, or cardiac arrest Reviewed preliminary echo with Dr Hanane Rosales, pt history, symptoms, EKG, labs, and FMH- he is agreeable that pt may proceed with planned surgery and that she is a low risk from a cardiology perspective. pt may proceed from a cardiology perspective with planned orthopedic surgery today, she is a low risk for low to moderate risk surgery. Preliminary Echo reviewed with windows deployment technician and she states EF appears preserved, no acute abnormalities Plan as above
[2023-10-08] MEDS: METOPROLOL SUCCINATE 25 MG TAB.ER.24H PO (09:19)
[2023-10-08] MEDS: LACTATED RINGER'S SOLUTION 1,000 ML 125 ML IV ×2 (09:19→16:03)
[2023-10-08] MEDS: CEFTRIAXONE 1,000 MG in 0.9 % SODIUM CHLORIDE 50 ML 100 MG IV (10:15)
--- NOTE | 2023-10-08 10:48 | CM.NOTE ---
Rounds made with Dr. Oneil, discussed with pt plan of care and surgical intervention. Discussed discharge planning also and possible need for skilled therapy at discharge. Pt and daughter (Nanette) at bedside in agreement. Facility [facility]. Updated SW.
--- NOTE | 2023-10-08 11:34 | SWNOTE1 ---
Case management and nurse practititoner let SW know that family and pt are agreeable for SNF and they want [facility]. SW to reach out to [facility].
--- NOTE | 2023-10-08 11:54 | SWNOTE1 ---
[facility] does have openings. SW sent face sheet, ED note, labs, vitals, nursing notes, and med list. Pt will be a precert, will need PT/OT notes after surgery for precert to be started.
--- NOTE | 2023-10-08 11:54 | CM.NOTE ---
Important Message From Medicare discussed with pt, pt verbalizes understanding and signs paper. Original given to pt and copy placed on pt's chart.
--- NOTE | 2023-10-08 13:00 | P.HP_ITS ---
<Statement entered by Luz Oneil DO - 10/08/23 17:16> This documentation has been reviewed and approved.I have also seen and evaluated patient and agree with assessments and plan of care. H&P: HPI History of Present Illness Chief complaint: HIP PAIN FALL, Rt Femoral Neck Fracture Narrative: 10/08/23 1025 This is a 77-year-old female patient with a past medical history as outlined below including hypothyroidism, hypertension, GERD, and chronic vertigo; who presented to the ED last night after suffering a fall at home. The patient reportedly experienced unprovoked acute vertigo and fell to the ground, landing on the front of her body. She denied striking her head. She immediately experienced severe pain to the right hip, was unable to get up, and was transferred to the ED for further evaluation. Workup in the ED revealed CHRISTIAN/dehydration (BUN 28, CR 1.26, GFR 41), thromb ocytopenia (148), and a UTI. Her TSH was elevated at 7.463. An x-ray of the right hip revealed a femoral neck fracture that is displaced and angulated. CT of the head and neck were unremarkable for acute abnormalities, as was a chest x-ray. EKG revealed sinus rhythm with mild sinus arrhythmia. The patient was admitted last night to the hospitalist service with orthopedic surgery on consult for definitive management of the patient's femoral neck fracture. At the time of my exam the patient is resting comfortably in bed. She reports that her pain is adequately controlled if she does not try to move her leg. She denies tripping before her fall. She admits to severe, intermittent vertigo which has been present for the last 2 to 3 years, but worse recently. The patient has been prescribed meclizine which has not helped significantly with her vertigo. She has not had vestibular therapy, ENT, or neurology referrals. She denies any cardiac history. She denies chest pain, shortness of breath, palpitations, dysuria/frequency, or any other acute complaints other than hip pain. She reported that her levothyroxine prescription ran out 2 or 3 months ago and she has not been taking it as prescribed which is the likely etiology of her subtherapeutic TSH. We will order a stat limited 2D Echo this morning to complete a pre-op work up prior to surgery planned for early afternoon. Review of Systems ROS Status of ROS 10 or more systems reviewed and unremark able except as noted in history and below [facility] Medical History (Updated 10/08/23 @ 13:33 by Adelina Bolton NP) Essential (primary) hypertension ?I10 - Essential (primary) hypertension (ICD-10) Vertigo ?R42 - Dizziness and giddiness (ICD-10) Sinus arrhythmia seen on electrocardiogram ?I49.8 - Other specified cardiac arrhythmias (ICD-10) Hypothyroid ?E03.9 - Hypothyroidism, unspecified (ICD-10) Sacroiliac dysfunction ?M53.3 - Sacrococcygeal disorders, not elsewhere classified (ICD-10) Lumbar spondylosis ?M47.816 - Spondylosis without myelopathy or radiculopathy, lumbar region (ICD-10) Lumbar stenosis with neurogenic claudication ?M48.062 - Spinal stenosis, lumbar region with neurogenic claudication (ICD- 10) DDD (degenerative disc disease), lumbar ?M51.36 - Other intervertebral disc degeneration, lumbar region (ICD-10) Low back pain ?M54.50 - Low back pain, unspecified (ICD-10) Irregular heartbeat ?I49.9 - Cardiac arrhythmia, unspecified (ICD-10) Acid reflux ?K21.9 - Gastro-esophageal reflux disease without esophagitis (ICD-10) Rheumatoid arthritis ?M06.9 - Rheumatoid arthritis, unspecified (ICD-10) Osteoarthritis ?M19.90 - Unspecified osteoarthritis, unspecified site (ICD-10) Hearing deficit ?H91.90 - Unspecified hearing loss, unspecified ear (ICD-10) Hypertension ?I10 - Essential (primary) hypertension (ICD-10) High cholesterol ?E78.00 - Pure hypercholesterolemia, unspecified (ICD-10) Family History (Updated 10/08/23 @ 09:27 by DIAN MOE) Father Family history of hypertension Family history of stroke Mother Family history of hypertension Family history of myocardial infarction, Onset Age: 45 Social History Within the past year, how often did you have a drink containing alcohol: monthly or less Within the past year, how often did you have six or more drinks on one occasion: never Smoking status: Never smoker Non-prescribed substance use: denies use 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 Known occupational exposures/hazards: No Highest level of school completed/degree received: Master's degree Are you now , , , , never or living with a partner: In a typical week, how many times do you talk on the telephone with family, friends, or neighbors: twice per week How often do you get together with friends or relatives: twice per week How often do you attend lutheran or pentecostalism services: 4 or more times per year Little interest or pleasure in doing things: not at all Feeling down, depressed, or hopeless: not at all Feel stressed/tense/nervous/anxious/difficulty sleeping: only a little Life stressor details: medical issues Gender Identity: female Meds Home Medications and Allergies Home Medications Medication Instructions Recorded Confirmed Type atorvastatin 10 mg tablet 10 mg PO DAILY 07/29/23 10/07/23 History levothyroxine 75 mcg tablet 75 mcg PO DAILY 07/29/23 10/07/23 History metoprolol succinate 25 mg 25 mg PO DAILY 07/29/23 10/07/23 History tablet,extended release 24 hr omeprazole 40 mg capsule,delayed 40 mg PO DAILY 07/29/23 10/07/23 History release acetaminophen 500 mg tablet 1,000 mg PO Q6H PRN pain 09/13/23 10/07/23 History (Tylenol Extra Strength) meclizine 25 mg tablet 25 mg PO BID 09/13/23 10/07/23 History tramadol 50 mg tablet 50 mg PO TID 09/13/23 10/07/23 History Allergies Allergy/AdvReac Type Severity Reaction Status Date / Time No Known Drug Allergies Allergy Verified 09/27/23 09:00 Exam Constitutional Vital Signs, click to edit/add: Last Vital Signs Temp 97.5 F L 10/08/23 12:09 Pulse 89 10/08/23 12:09 Resp 18 10/08/23 12:09 BP 143/75 H 10/08/23 12:09 Pulse Ox 94 L 10/08/23 12:09 O2 Del Method Room Air 10/08/23 12:09 Common normals: no apparent distress, oriented x3, alert and well nourished General appearance: cooperative Orientation/consciousness: Yes awake HENMT Common normals: normocephalic, head/scalp atraumatic, hearing grossly normal bilaterally, external nose normal and moist oral mucous membranes Eye Common normals: PERRL, EOMs intact bilaterally, conjunctivae normal and no scleral icterus Alignment: alignment normal Eyelid: eyelids normal Chest Common normals: inspection of chest normal Chest: symmetrical chest wall rise Respiratory Common normals: normal respiratory effort, no retractions, no use of accessory muscles and clear to auscultation bilaterally Effort & inspection: able to speak in complete sentences Cardio Common normals: no JVD, regular rate, regular rhythm, S1 normal heart sound, S2 normal heart sound, no gallops, no clicks, no murmurs, no rub and peripheral pulses 2+ throughout GI Common normals: Normal to inspection, nondistended, normoactive bowel sounds present, soft to palpation, non-tender, no hepatosplenomegaly, no masses and no bruits Bladder/kidney exam: bladder normal to palpation Extremity Common normals: normal capillary refill and no pedal edema General: no clubbing and no cyanosis Right lower extremity: hip joint (Tender, external rotation) Neuro [place] Coma Scale: GCS not evaluated Common normals: CN's II-XII intact bilaterally, moves all extremities, no focal motor deficits and no sensory deficits noted Speech: speech normal Motor exam: strength 5/5 throughout Psych Common normals: mental status grossly normal, thought process normal, affect normal and activity/motor behavior normal Results Labs Labs: Short CBC 10/07/23 10/08/23 Range/Units 18:50 04:42 WBC 6.9 8.1 (4.0-11.0) 10^3/uL Hgb 12.6 11.3 L (12.0-16.0) g/dL Hct 35.7 L 34.0 L (36.0-48.0) % Plt Count 148 L 114 L (150-450) 10^3/uL BMP 10/07/23 10/08/23 18:50 04:42 Sodium 139 141 Potassium 3.9 4.4 Chloride 105 107 Carbon Dioxide 22.6 24.4 BUN 28.0 H 24.0 H Creatinine 1.26 H 0.89 Glucose 189 H 115 H Calcium 9.3 9.0 Liver Function 10/07/23 10/08/23 Range/Units 18:50 04:42 Total Bilirubin 0.4 0.3 (0.2-1.0) mg/dL AST 29 23 (15-37) U/L ALT 43 40 (14-59) U/L Alkaline Phosphatase 119 H 100 (46-116) U/L Albumin 3.2 L 2.9 L (3.4-5.0) g/dL Urine 10/07/23 Range/Units 20:35 Urine Color Yellow (YELLOW) Urine Clarity Clear (CLEAR) Urine pH 5.5 (5.0-9.0) Ur Specific [place] >=1.030 A (1.005-1.025) Urine Protein Negative (NEG/TRACE) mg/dL Urine Glucose (UA) Negative (NEGATIVE) mg/dL Pulse Oximetry Attestation: I have reviewed the pertinent pulse oximetry results. Assessment and Plan Assessment and Plan (1) Femoral neck fracture: Assessment and Plan: ACUTE * Adm inpatient * 2/2 fall from episodic vertigo * Pt reports multiple recent falls as vertigo symptoms have been worsening * C/S Orthopedic surgery - we appreciate Dr Hendricks's assistance with this pt's care * See preop eval below * MS IVP for pain, Zofran for nausea * Diana catheter inserted in ED d/t immobilization and severe pain w/ repositioning in bed * PT/OT consults post-op Qualifiers: Encounter type: subsequent encounter Fracture type: closed (2) Pre-operative cardiovascular examination: Assessment and Plan: ACUTE * Pre op eval * EKG - unremarkable * CXR - unremarkable * 2D Echo, limited - pending * If 2D Echo unremarkable, pt is medically stable for surgery. Very low cardiac risk for surgery (0.4%) (3) UTI (urinary tract infection): Assessment and Plan: ACUTE * IVPB Rocephin * Ur C&S pending * CBC, CMP daily (4) CHRISTIAN (acute kidney injury): Assessment and Plan: ACUTE * 2/2 acute UTI and dehydration * See ABX above * Hold renal toxic meds if indicated (no renal toxic home meds) * LR at 125 hr for now while NPO - reduce to more gentle rate post op * CMP daily (5) Dehydration: Assessment and Plan: ACUTE * Pt admits to poor fluid intake * IVF as above * CMP daily (6) Thrombocytopenia: Assessment and Plan: ACUTE * Mild, unclear etiology * CBC daily to monitor (7) Vertigo: Assessment and Plan: CHRONIC * Continue home PRN meclizine * Recommend outpatient referral to vestibular therapy, possibly to ENT and Neuro as well * Ambulate with a walker at all times (8) Hypothyroid: Assessment and Plan: CHRONIC * Pt has not been taking her levothyroxine for 2-3 months d/t difficulty obtaining a refill and pt concern for taking too many pills * TSH subtherapeutic in ED (7.463) * Resume home levothyroxine at previous dosing * Defer further titrations to pt's PCP (9) Essential (primary) hypertension: Assessment and Plan: CHRONIC * Continue home metoprolol Urinary Catheter Management Urinary Catheter Management Urethral: Cath placed during this visit: yes Urethral indwelling: Yes Reason for continuing: prolonged immobilization Insertion date: 10/07/23 Insertion time: 20:25
--- NOTE | 2023-10-08 14:06 | PM.ORCN ---
History of Present Illness [facility] Consult date: 10/08/23 Consult reason: fracture Chief complaint: HIP PAIN FALL, Rt Femoral Neck Fracture Narrative: Patient is a 77-year-old lady who has a history of vertigo. She was walking yesterday had an episode of vertigo lost her balance falling onto her right hip with inability to bear weight. She was transported to the emergency room where x-rays revealed a displaced femoral neck fracture. She denies pain elsewhere. At baseline she reports a history of right leg pain and history of vertigo with a recent injection performed at the pain clinic. At baseline she reports numbness and tingling in her right leg including her toes. Review of Systems ROS Status of ROS 10 or more systems reviewed and unremarkable except as noted in history and below [facility] Medical History (Updated 10/08/23 @ 13:33 by Adelina Bolton NP) Essential (primary) hypertension ?I10 - Essential (primary) hypertension (ICD-10) Vertigo ?R42 - Dizziness and giddiness (ICD-10) Sinus arrhythmia seen on electrocardiogram ?I49.8 - Other specified cardiac arrhythmias (ICD-10) Hypothyroid ?E03.9 - Hypothyroidism, unspecified (ICD-10) Sacroiliac dysfunction ?M53.3 - Sacrococcygeal disorders, not elsewhere classified (ICD-10) Lumbar spondylosis ?M47.816 - Spondylosis without myelopathy or radiculopathy, lumbar region (ICD-10) Lumbar stenosis with neurogenic claudication ?M48.062 - Spinal stenosis, lumbar region with neurogenic claudication (ICD-10) DDD (degenerative disc disease), lumbar ?M51.36 - Other intervertebral disc degeneration, lumbar region (ICD-10) Low back pain ?M54.50 - Low back pain, unspecified (ICD-10) Irregular heartbeat ?I49.9 - Cardiac arrhythmia, unspecified (ICD-10) Acid reflux ?K21.9 - Gastro-esophageal reflux disease without esophagitis (ICD-10) Rheumatoid arthritis ?M06.9 - Rheumatoid arthritis, unspecified (ICD-10) Osteoarthritis ?M19.90 - Unspecified osteoarthritis, unspecified site (ICD-10) Hearing deficit ?H91.90 - Unspecified hearing loss, unspecified ear (ICD-10) Hypertension ?I10 - Essential (primary) hypertension (ICD-10) High cholesterol ?E78.00 - Pure hypercholesterolemia, unspecified (ICD-10) Family History (Updated 10/08/23 @ 09:27 by DIAN MOE) Father Family history of hypertension Family history of stroke Mother Family history of hypertension Family history of myocardial infarction, Onset Age: 45 Social History Within the past year, how often did you have a drink containing alcohol: monthly or less Within the past year, how often did you have six or more drinks on one occasion: never Smoking status: Never smoker Non-prescribed substance use: denies use 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 Known occupational exposures/hazards: No Highest level of school completed/degree received: Master's degree Are you now , , , , never or living with a partner: In a typical week, how many times do you talk on the telephone with family, friends, or neighbors: twice per week How often do you get together with friends or relatives: twice per week How often do you attend mandaen or jainism services: 4 or more times per year Little interest or pleasure in doing things: not at all Feeling down, depressed, or hopeless: not at all Feel stressed/tense/nervous/anxious/difficulty sleeping: only a little Life stressor details: medical issues Gender Identity: female Meds Home Medications and Allergies Home Medications Medication Instructions Recorded Confirmed Type atorvastatin 10 mg tablet 10 mg PO DAILY 07/29/23 10/07/23 History levothyroxine 75 mcg tablet 75 mcg PO DAILY 07/29/23 10/07/23 History metoprolol succinate 25 mg 25 mg PO DAILY 07/29/23 10/07/23 History tablet,extended release 24 hr omeprazole 40 mg capsule,delayed 40 mg PO DAILY 07/29/23 10/07/23 History release acetaminophen 500 mg tablet 1,000 mg PO Q6H PRN pain 09/13/23 10/07/23 History (Tylenol Extra Strength) meclizine 25 mg tablet 25 mg PO BID 09/13/23 10/07/23 History tramadol 50 mg tablet 50 mg PO TID 09/13/23 10/07/23 History Allergies Allergy/AdvReac Type Severity Reaction Status Date / Time No Known Drug Allergies Allergy Verified 09/27/23 09:00 Exam Narrative Exam Narrative: On exam she is in no obvious distress. Right thigh is mildly swollen. Skin is intact. Groin pain with any attempts at motion. Palpable dorsalis pedis pulse. Significantly diminished sensation in the right foot which she reports is her baseline. She is able to wiggle her toes. No right knee or right ankle tenderness. Left lower extremity and bilateral upper extremities are nontender to palpation. Constitutional Vital Signs, click to edit/add: Last Vital Signs Temp 97.5 F L 10/08/23 12:09 Pulse 89 10/08/23 12:09 Resp 18 10/08/23 12:09 BP 143/75 H 10/08/23 12:09 Pulse Ox 94 L 10/08/23 12:09 O2 Del Method Room Air 10/08/23 12:09 Results Labs Labs: Abnormal lab results 10/07/23 10/07/23 10/08/23 Range/Units 18:50 20:35 04:42 RBC 3.52 L 3.32 L (4.20-5.40) 10^6/uL Hgb 11.3 L (12.0-16.0) g/dL Hct 35.7 L 34.0 L (36.0-48.0) % MCV 101.4 H 102.4 H (81.0-99.0) fL MCH 35.8 H (26.7-34.0) pg MCHC 35.3 H (29.9-35.2) g/dL Plt Count 148 L 114 L (150-450) 10^3/uL MPV 9.3 L 9.3 L (9.5-13.5) fL Neut % (Auto) 79.7 H (43.0-75.0) % Lymph % (Auto) 19.2 L 10.3 L (20.5-60.0) % Eos % (Auto) 0.4 L (0.9-7.0) % Baso % (Auto) 0.1 L (0.2-2.0) % Lymph # (Auto) 0.8 L (1.2-3.8) 10^3/uL Abs Immat Gran (auto) 0.05 H (0.00-0.03) 10^3/uL Imm/Tot Granulo (auto) 0.7 H (0.0-0.5) % BUN 28.0 H 24.0 H (7.0-18.0) mg/dL Creatinine 1.26 H (0.55-1.02) mg/dL Est GFR ( Amer) 50 L (>=60) Est GFR (Non-Af Amer) 41 L (>=60) Glucose 189 H 115 H (74-106) mg/dL Alkaline Phosphatase 119 H (46-116) U/L Troponin I High Sens <4.0 L (4.0-51.3) pg/mL Total Protein 6.2 L (6.4-8.2) g/dL Albumin 3.2 L 2.9 L (3.4-5.0) g/dL TSH 7.463 H (0.358-3.740) uIU/mL Ur Specific [place] >=1.030 A (1.005-1.025) Urine Ketones Trace A (NEGATIVE) mg/dL Urine Nitrite Positive A (NEGATIVE) Urine WBC 5-10 A (NONE SEEN) #/HPF Urine Crystals Seen A (None Seen) #/HPF Urine Bacteria Large A (NONE SEEN) #/HPF Urine Mucus Small A (NONE SEEN) H & H 10/07/23 10/08/23 Range/Units 18:50 04:42 Hgb 12.6 11.3 L (12.0-16.0) g/dL Hct 35.7 L 34.0 L (36.0-48.0) % Coagulation 10/07/23 Range/Units 18:50 INR 1.00 All other labs normal. Diagnostic results Hip x-ray: image reviewed (X-rays show displaced femoral neck fracture) Assessment and Plan Assessment and Plan (1) Femoral neck fracture: Assessment and Plan: For her right femoral neck fracture I recommended a right hip hemiarthroplasty. I have discussed the injury and procedure with the patient as well as recovery. I have gone through informed consent with the patient today and discussed risks including but not limited to infection, chronic pain, need for additional surgery, and loss of life. She understands the risks associated with this injury and procedure and has elected to proceed. Qualifiers: Encounter type: subsequent encounter Fracture type: closed (2) Pre-operative cardiovascular examination: (3) UTI (urinary tract infection): (4) CHRISTIAN (acute kidney injury): (5) Dehydration: (6) Thrombocytopenia: (7) Vertigo: (8) Hypothyroid: (9) Essential (primary) hypertension:
--- NOTE | 2023-10-08 14:20 | SWNOTE1 ---
SW sent orthopedic consult note and H&P to [facility].
--- NOTE | 2023-10-08 14:25 | PM.ORPRC ---
Procedure Note Date of procedure: 10/08/23 Pre-op diagnosis: Right femoral neck fracture Post-op diagnosis: same as pre-op Procedure: Operation performed: Right hip hemiarthroplasty Operative procedure: After informed consent was obtained the patient was brought to the operating room where a general anesthetic was administered. Preoperatively regional block was placed. The patient was placed in lateral decubitus position and the right hip was prepped and draped in usual sterile fashion. A 14 cm curvilinear incision was made for a posterior approach to the hip. Hemostasis was achieved with Bovie. Blunt dissection was carried down through soft tissue. Fascia was incised in line with the incision. Short external rotators were incised off the greater trochanter and tagged for later repair. Capsule was incised. Femoral neck fracture was identified and a revision osteotomy was performed with a sagittal saw using the osteotomy cutting guide. Femoral head was removed and sized to 44 mm. Attention was next turned to preparation of the femoral canal. Box osteotome was used followed by the canal finder. Lateralizing reamer was then utilized and sequential broaching was performed to size 11 stem for the Guzman LDFX stem. The standard neck was then placed with the 44 mm Endo head hip was reduced placed to range of motion and ultimately a +10.5 femoral neck was decided upon. Trial components were removed. Canal was brushed, irrigated and then dried. Cement was prepared in standard fashion and then placed using thumb pressurization. The Guzman LDFX size 11 stem was then placed and held in position until the cement had hardened. The +10.5 mm taper with 44 mm Endo head was then placed. The hip was reduced placed through range of motion and found to be stable. Wound was irrigated. Short external rotators were repaired through drill holes tied over a bony bridge on the greater trochanter. Capsule was repaired with #2 FiberWire suture. Fascia was closed with a #2 FiberWire suture. Skin was closed in layers. Sterile dressing was placed. Hip abduction pillow was placed. Patient was awakened and brought to the recovery room in stable condition. There were no intraoperative or immediate postoperative complications. Anesthesia: regional and General-LMA Surgeon: Charles Hendricks Estimated blood loss (mL): 200 Pathology: other (Femoral head) Condition: stable Disposition: PACU
--- NOTE | 2023-10-08 14:36 | PC.NURSE ---
Fascia Illiaca block done by anesthesia in right lower extremity and tolerated fair by pt; started at 1408 and completed at 1418
--- NOTE | 2023-10-08 16:05 | SWNOTE1 ---
[facility] is able to accept, but will need PT/OT notes before they can start precert.
--- NOTE | 2023-10-08 16:40 | XR_ITS ---
[address] [address] Patient Name: DEXTER MCCARTHY MRN: [id number] date: 1945 Sex: F Assigned Patient Location: [place] Current Patient Location: [place] Accession/Order Number: [id number] Exam Date: 10/08/2023 16:55 Report Date: 10/08/2023 17:51 At the request of: JASEN GARRIDO Procedure: XR hip RT min 2V IMAGES REVIEWED: XR hip RT min 2V COMPARISON: 09/17/2023. CLINICAL INDICATION: post op right hip FINDINGS/IMPRESSION: 1. Status post interval right hip hemiarthroplasty placement without evidence of complication. 2. Osteopenia. 3. Peripheral arterial disease. Electronically authenticated by: NU STERLING Date: 10/08/2023 17:51
--- NOTE | 2023-10-08 17:04 | PC.NURSE ---
1639- Unable to assess sensation of right hip at present time
--- NOTE | 2023-10-08 17:10 | PC.NURSE ---
unable to assess sensation at present time. Patient is sleeping comfortably ([id number])
[2023-10-08] MEDS: MECLIZINE HCL 12.5 MG TABLET 25 MG PO (21:50)
[2023-10-08] MEDS: ATORVASTATIN CALCIUM 10 MG TABLET PO (21:51)
[2023-10-09] VITALS (13 sets, daily range): BP systolic 86–171; BP diastolic 52–91; PULSE 83–94; RESP 15–20; TEMP 36.3–37; O2SAT 86–99
[2023-10-09] MEDS: LACTATED RINGER'S SOLUTION 1,000 ML 125 ML IV (02:19)
[2023-10-09 05:10] LABS: Basophils Percent Auto 0.1 % (0.2-2.0); Hematocrit 31.4 % (36.0-48.0); Hemoglobin 10.4 g/dL (12.0-16.0); Immature Granulocytes Abs Auto 0.07 10^3/uL (0.00-0.03); Immature Granulocytes Pct Auto 0.6 % (0.0-0.5); Lymphocytes Absolute Auto 0.6 10^3/uL (1.2-3.8); Lymphocytes Percent Auto 5.4 % (20.5-60.0); Mean Corpuscular HGB Conc 33.1 g/dL (29.9-35.2); Mean Corpuscular Hemoglobin 34.4 pg (26.7-34.0); Mean Platelet Volume 9.5 fL (9.5-13.5); Monocytes Absolute Auto 0.7 10^3/uL (0.3-0.8); Monocytes Percent Auto 5.7 % (1.7-12.0); Neutrophils Percent Auto 88.2 % (43.0-75.0); Platelet Count 141 10^3/uL (150-450); Red Blood Count 3.02 10^6/uL (4.20-5.40); Red Cell Distribution Width 13.9 % (11.0-15.0); White Blood Count 11.4 10^3/uL (4.0-11.0)
[2023-10-09] MEDS: OMEPRAZOLE 40 MG CAPSULE.DR PO (05:32)
[2023-10-09] MEDS: LEVOTHYROXINE SODIUM 75 MCG TABLET PO (05:32)
[2023-10-09] MEDS: ALPRAZOLAM 0.25 MG TABLET PO (05:32)
[2023-10-09 05:42] LABS: Alanine Aminotransferase 32 U/L (14-59); Albumin Globulin Ratio 0.9; Albumin Level 2.7 g/dL (3.4-5.0); Alkaline Phosphatase 86 U/L (46-116); Anion Gap 16.9; Aspartate Amino Transferase 22 U/L (15-37); BUN Creatinine Ratio 25.3; Bilirubin Total 0.7 mg/dL (0.2-1.0); Carbon Dioxide 22.3 mmol/L (21.0-32.0); Chloride 103 mmol/L (98-107); Estimated GFR (African America >60 (>=60); Estimated GFR (Non-African Ame 54 (>=60); Globulin 3.1 g/dL; Glucose 136 mg/dL (74-106); Potassium 4.2 mmol/L (3.5-5.1); Sodium 138 mmol/L (136-145); Total Protein 5.8 g/dL (6.4-8.2)
[2023-10-09] MEDS: MORPHINE SULFATE 2 MG/ML SYRINGE IV ×3 (06:06→22:08)
[2023-10-09] MEDS: HYDRALAZINE HCL 20 MG/ML VIAL 10 MG IVP (06:06)
--- NOTE | 2023-10-09 08:05 | PM.ORPN ---
Progress Note: A&P Assessment and Plan (1) Femoral neck fracture: Assessment and Plan: POD#1 from right hip hemiarthroplasty Hgb stable PT today - WBAT Start DVT prophylaxis Qualifiers: Encounter type: subsequent encounter Fracture type: closed (2) Pre-operative cardiovascular examination: (3) UTI (urinary tract infection): (4) CHRISTIAN (acute kidney injury): (5) Dehydration: (6) Thrombocytopenia: (7) Vertigo: (8) Hypothyroid: (9) Essential (primary) hypertension: Subjective Subjective Interval history: Patient was confused overnight Exam Narrative Exam Narrative: Patient sleeping RLE: Dressing C/D/I Palp. DP Thigh soft Constitutional Vital Signs, click to edit/add: Last Vital Signs Temp 97.4 F L 10/09/23 04:13 Pulse 90 10/09/23 06:02 Resp 18 10/09/23 04:13 BP 171/86 H 10/09/23 06:06 Pulse Ox 91 L 10/09/23 06:32 O2 Del Method Nasal Cannula 10/09/23 06:32 O2 Flow Rate 1 10/09/23 06:32 Urinary Catheter Management Urinary Catheter Management Urethral: Cath placed during this visit: yes Urethral indwelling: Yes Reason for continuing: surgical procedure Insertion date: 10/07/23 Insertion time: 20:25
[2023-10-09] MEDS: MECLIZINE HCL 12.5 MG TABLET 25 MG PO ×2 (09:56→21:08)
[2023-10-09] MEDS: ENSURE HP 237 ML LIQUID PO ×2 (09:56→21:08)
[2023-10-09] MEDS: CEFTRIAXONE 1,000 MG in 0.9 % SODIUM CHLORIDE 50 ML 100 MG IV (09:56)
[2023-10-09] MEDS: LEVOTHYROXINE SODIUM 25 MCG TABLET PO (09:56)
[2023-10-09] MEDS: METOPROLOL SUCCINATE 25 MG TAB.ER.24H 50 MG PO (09:56)
--- NOTE | 2023-10-09 10:13 | P.PN_ITS ---
Progress Note: Subjective Subjective Interval history: Patient is confused this morning, not sure of location, not sure what happened yesterday although she does recall having surgery, she does know who her is. Exam Constitutional Vital Signs, click to edit/add: Last Vital Signs Temp 97.4 F L 10/09/23 04:13 Pulse 90 10/09/23 08:01 Resp 20 10/09/23 08:01 BP 105/65 10/09/23 08:01 Pulse Ox 98 10/09/23 08:01 O2 Del Method Nasal Cannula 10/09/23 08:01 O2 Flow Rate 1 10/09/23 08:01 Documenting provider has reviewed patient's vital signs: yes Common normals: apparent distress (Mild anxiety) Chest Common normals: inspection of chest normal Respiratory Common normals: normal respiratory effort and no retractions Cardio Common normals: regular rate and regular rhythm GI Common normals: Normal to inspection, nondistended, normoactive bowel sounds present Psych Common normals: negative for affect normal Attitude: engaged Progress Note: Objective Labs Labs: Short CBC 10/09/23 Range/Units 04:45 WBC 11.4 H (4.0-11.0) 10^3/uL Hgb 10.4 L (12.0-16.0) g/dL Hct 31.4 L (36.0-48.0) % Plt Count 141 L (150-450) 10^3/uL BMP 10/09/23 04:45 Sodium 138 Potassium 4.2 Chloride 103 Carbon Dioxide 22.3 BUN 25.0 H Creatinine 0.99 Glucose 136 H Calcium 9.0 Liver Function 10/09/23 Range/Units 04:45 Total Bilirubin 0.7 (0.2-1.0) mg/dL AST 22 (15-37) U/L ALT 32 (14-59) U/L Alkaline Phosphatase 86 (46-116) U/L Albumin 2.7 L (3.4-5.0) g/dL Progress Note: A&P Assessment and Plan (1) Femoral neck fracture: Assessment and Plan: Plan per orthopedics Qualifiers: Encounter type: subsequent encounter Fracture type: closed (2) Pre-operative cardiovascular examination: Assessment and Plan: Tolerated surgical procedure well (3) UTI (urinary tract infection): Assessment and Plan: Check on urine culture (4) CHRISTIAN (acute kidney injury): Assessment and Plan: Monitor daily, back to baseline today (5) Dehydration: Assessment and Plan: Encourage p.o. intake (6) Thrombocytopenia: Assessment and Plan: Down somewhat today, continue to monitor daily (7) Vertigo: Assessment and Plan: Denies this morning (8) Hypothyroid: Assessment and Plan: Home medications (9) Essential (primary) hypertension: Assessment and Plan: Stable this morning Plan Added diagnoses Acute blood loss anemia secondary to hip fracture-monitor daily Patient with a history of some confusion at times, that comes from the . Significant confusion overnight. Will adjust medications to improve sleep. Something for agitation as needed. Likely sundowning complicating some mild underlying dementia Urinary Catheter Management Urinary Catheter Management Urethral: Cath placed during this visit: yes Urethral indwelling: Yes Reason for continuing: not indwelling catheter Insertion date: 10/07/23 Insertion time: 20:25
[2023-10-09] MEDS: LEVOFLOXACIN IN DEXTROSE 5 % 750 MG/150 ML IV.SOLN 100 MG IV (10:54)
--- NOTE | 2023-10-09 14:16 | CT_ITS ---
[address] [address] Patient Name: DEXTER MCCARTHY MRN: [id number] date: 1945 Sex: F Assigned Patient Location: MS Current Patient Location: [place] Accession/Order Number: [id number] Exam Date: 10/09/2023 14:55 Report Date: 10/09/2023 16:51 At the request of: JUANCHO GRADY Procedure: CT head/brain wo con NONCONTRAST HEAD CT COMPARISON: Head CT, 2 days ago. CLINICAL HISTORY: 6 altered mental status. TECHNIQUE: Routine noncontrast images of the brain obtained. CT examination of the head without IV contrast. Dose reduction techniques were achieved by using: automated exposure control and/or adjustment of mA and /or kV according to patient size and/or use of iterative reconstruction technique. FINDINGS: Paranasal sinuses and mastoid air cells are clear. Intraorbital contents are unremarkable. No acute bony abnormality. Intracranially, there is no evidence of hemorrhage, mass effect, or midline shift. Severe brain atrophy. Chronic ischemic changes in the periventricular white matter. Dense carotid vascular calcifications.. CT/CT head/brain wo con IMPRESSION: No acute intracranial abnormality. Brain atrophy unchanged. Electronically authenticated by: JAYLYN RIBERA Date: 10/09/2023 16:51
[2023-10-09] MEDS: ENOXAPARIN SODIUM 40 MG/0.4 ML SYRINGE SUBQ (18:27)
--- NOTE | 2023-10-09 19:47 | PC.NURSE ---
[place] patient yelling from hallway. Patient yelling mama . Patient was restless and trying to sit up in bed. Stated she needed a drink. Provided fresh water. Unable to tell me what hospital she was in or the month. Reoriented to place and time. Resting comfortably after repositioning and call light within reach.
[2023-10-09] MEDS: ATORVASTATIN CALCIUM 10 MG TABLET PO (22:30)
[2023-10-10] VITALS (14 sets, daily range): BP systolic 103–131; BP diastolic 58–81; PULSE 80–87; RESP 16–20; TEMP 36.3–36.8; O2SAT 87–96
[2023-10-10] MEDS: MORPHINE SULFATE 2 MG/ML SYRINGE IV ×2 (01:59→07:40)
[2023-10-10 05:40] LABS: Basophils Percent Auto 0.1 % (0.2-2.0); Eosinophils Percent Auto 0.5 % (0.9-7.0); Hematocrit 25.7 % (36.0-48.0); Hemoglobin 8.5 g/dL (12.0-16.0); Immature Granulocytes Abs Auto 0.04 10^3/uL (0.00-0.03); Immature Granulocytes Pct Auto 0.5 % (0.0-0.5); Lymphocytes Absolute Auto 0.9 10^3/uL (1.2-3.8); Lymphocytes Percent Auto 10.4 % (20.5-60.0); Mean Corpuscular HGB Conc 33.1 g/dL (29.9-35.2); Mean Corpuscular Hemoglobin 34.3 pg (26.7-34.0); Mean Corpuscular Volume 103.6 fL (81.0-99.0); Mean Platelet Volume 9.7 fL (9.5-13.5); Monocytes Absolute Auto 0.8 10^3/uL (0.3-0.8); Monocytes Percent Auto 9.6 % (1.7-12.0); Neutrophils Absolute Auto 6.8 10^3/uL (1.4-6.5); Neutrophils Percent Auto 78.9 % (43.0-75.0); Platelet Count 93 10^3/uL (150-450); Red Blood Count 2.48 10^6/uL (4.20-5.40); Red Cell Distribution Width 13.7 % (11.0-15.0); White Blood Count 8.7 10^3/uL (4.0-11.0)
[2023-10-10] MEDS: OMEPRAZOLE 40 MG CAPSULE.DR PO (06:00)
[2023-10-10] MEDS: LEVOTHYROXINE SODIUM 100 MCG TABLET PO (06:00)
[2023-10-10 06:16] LABS: Alanine Aminotransferase 24 U/L (14-59); Albumin Globulin Ratio 0.7; Albumin Level 2.2 g/dL (3.4-5.0); Alkaline Phosphatase 70 U/L (46-116); Aspartate Amino Transferase 23 U/L (15-37); BUN Creatinine Ratio 32.1; Bilirubin Total 0.5 mg/dL (0.2-1.0); Calcium 8.9 mg/dL (8.5-10.1); Carbon Dioxide 23.9 mmol/L (21.0-32.0); Chloride 105 mmol/L (98-107); Estimated GFR (African America >60 (>=60); Estimated GFR (Non-African Ame >60 (>=60); Glucose 107 mg/dL (74-106); Potassium 3.9 mmol/L (3.5-5.1); Sodium 137 mmol/L (136-145); Total Protein 5.2 g/dL (6.4-8.2)
[2023-10-10] MEDS: ENSURE HP 237 ML LIQUID PO ×2 (09:03→20:22)
[2023-10-10] MEDS: CEFTRIAXONE 1,000 MG in 0.9 % SODIUM CHLORIDE 50 ML 100 MG IV (09:03)
[2023-10-10] MEDS: METOPROLOL SUCCINATE 25 MG TAB.ER.24H 50 MG PO (09:04)
[2023-10-10] MEDS: ENOXAPARIN SODIUM 40 MG/0.4 ML SYRINGE SUBQ (09:04)
[2023-10-10] MEDS: MECLIZINE HCL 12.5 MG TABLET 25 MG PO ×2 (09:05→20:20)
[2023-10-10] MEDS: HYDROCODONE/ACET 5-325 MG TABLET 2 TAB PO ×2 (09:05→21:31)
[2023-10-10] MEDS: SENNOSIDES 8.6 MG TABLET 8.59999999999999964 MG PO (09:20)
[2023-10-10] MEDS: POLYETHYLENE GLYCOL 3350 17 GM POWDER PACKET PO (09:20)
[2023-10-10] MEDS: LEVOFLOXACIN IN DEXTROSE 5 % 750 MG/150 ML IV.SOLN 100 MG IV (10:07)
--- NOTE | 2023-10-10 11:34 | PT.DAILY ---
Physical Therapy Daily Note PT Daily Note/Assess Start: 10/09/23 08:13 Freq: Status: Active Protocol: Document 10/10/23 11:16 [id number] (Rec: 10/10/23 11:34 [id number]) Physical Therapy Daily Note/Assessment Time In/Time Out Time In 10:47 Time Out 11:15 Pain In Pain N/A Pain Out Pain N/A Subjective Subjective Nursing states patient was recently medicated for pain. Patient received supine in bed with ABD pillow in place. Patient A&O to self and place, however, at times questions why she is here and what are all these things. Points to ABD pillow and catheter. Patient states she has no pain laying still but knows it is going to hurt when she moves the R leg. Agreeable to get up in chair at bedside. Therapeutic Exercise Time Therapeutic Exercise Minutes (minutes) 8 Therapeutic Exercise Units 1 Therapeutic Exercise Treatment Therapeutic Exercise Treatment Patient performed anti-emb exercises of quad sets and glut sets only x10 reps to the R LE, requires verbal and tactile cues with each rep. Patient verbalizes pain with R quad muscle contractions to R LE. Therapeutic Activity Time Therapeutic Activity Minutes (minutes) 19 Therapeutic Activity Units 1 Therapeutic Activity Treatment Bed Mobility Ability Moderate Assist,Maximum Assist ,1 Person Assist Chair Transfer Ability Moderate Assist,1 Person Assist Therapeutic Activity Comments Removed ABD pillow and educated patient to not cross legs past midline while moving in bed. Patient required MAX A +1 to manage R LE, does use JONATHAN UE and L LE to assist with bed mobility. Patient is able to sit EOB with JONATHAN UE support on bed. Transfer sit to stand to RW MOD A +1, primarily uses L LE and JONATHAN UE for transfer. Patient advised she is WBAT when ambulating. Patient ambulated ~4 feet x 1 with RW with MOD to MAX A +1. Verbal cues to gait sequencing, safe hand placement on RW and to stand upright vs leaning over on RW, to not reach for chair until directly positioned in front for safety. Requires MAX A +1 to advance R LE, MOD A +1 for walker management. Transfer stand to sit is MOD A +1 with VC's to reach for chair armrest and to lower self slowly. Patient is MOD A +2 to scoot back into chair, patient positioned with JONATHAN LE elevated and pillow under calves. Call casey within reach. Patient left in care of BONNIE Raphael. Total Physical Therapy Time Total Therapy Minutes 27 Total Physical Therapy Units 2 Summary Daily Note Summary Patients function is challenged by pain and ability to follow commands for gait sequencing placing her at risk for falls. Patient demonstrates decreased safety awareness when ambulating with RW by leaning over the top and reaching for chair to sit when not positioned in front of chair. Patient would benefit from SNF @ [place] to address functional deficits.
--- NOTE | 2023-10-10 11:47 | P.PN_ITS ---
Progress Note: Subjective Subjective Interval history: Much more alert this morning. She does know where she is at Exam Constitutional Vital Signs, click to edit/add: Last Vital Signs Temp 98.3 F 10/10/23 11:29 Pulse 85 10/10/23 11:29 Resp 18 10/10/23 11:29 BP 103/62 10/10/23 11:29 Pulse Ox 96 10/10/23 11:29 O2 Del Method Room Air 10/10/23 11:29 O2 Flow Rate 1 10/10/23 08:05 Documenting provider has reviewed patient's vital signs: yes Common normals: apparent distress (Mild anxiety) Chest Common normals: inspection of chest normal Respiratory Common normals: normal respiratory effort and no retractions Cardio Common normals: regular rate and regular rhythm GI Common normals: Normal to inspection, nondistended, normoactive bowel sounds present Psych Common normals: negative for affect normal Attitude: engaged Progress Note: Objective Labs Labs: Short CBC 10/10/23 Range/Units 05:16 WBC 8.7 (4.0-11.0) 10^3/uL Hgb 8.5 L (12.0-16.0) g/dL Hct 25.7 L (36.0-48.0) % Plt Count 93 L (150-450) 10^3/uL BMP 10/10/23 05:16 Sodium 137 Potassium 3.9 Chloride 105 Carbon Dioxide 23.9 BUN 27.0 H Creatinine 0.84 Glucose 107 H Calcium 8.9 Liver Function 10/10/23 Range/Units 05:16 Total Bilirubin 0.5 (0.2-1.0) mg/dL AST 23 (15-37) U/L ALT 24 (14-59) U/L Alkaline Phosphatase 70 (46-116) U/L Albumin 2.2 L (3.4-5.0) g/dL Progress Note: A&P Assessment and Plan (1) Femoral neck fracture: Assessment and Plan: Plan per orthopedics Qualifiers: Encounter type: subsequent encounter Fracture type: closed (2) Pre-operative cardiovascular examination: Assessment and Plan: Tolerated surgical procedure well (3) UTI (urinary tract infection): Assessment and Plan: E. coli UTI sensitive to current antibiotics (4) CHRISTIAN (acute kidney injury): Assessment and Plan: Monitor daily, back to baseline today (5) Dehydration: Assessment and Plan: Encourage p.o. intake (6) Thrombocytopenia: Assessment and Plan: Down again further today. Will hold off on Lovenox due to possible acute blood loss (7) Vertigo: Assessment and Plan: Denies this morning (8) Hypothyroid: Assessment and Plan: Home medications (9) Essential (primary) hypertension: Assessment and Plan: Stable this morning Plan Added diagnoses Acute blood loss anemia secondary to hip fracture-Down 4 g from baseline. Will check occult blood, will hold off on Lovenox Confusion seemed to be somewhat better last night. Urinary Catheter Management Urinary Catheter Management Urethral: Cath placed during this visit: yes Urethral indwelling: Yes Reason for continuing: measure accurate output Insertion date: 10/07/23 Insertion time: 20:25
--- NOTE | 2023-10-10 11:48 | XR_ITS ---
The [address] [address] Patient Name: DEXTER MCCARTHY MRN: [id number] date: 1945 Sex: F Assigned Patient Location: [place] Current Patient Location: Accession/Order Number: [id number] Exam Date: 10/10/2023 12:45 Report Date: 10/10/2023 13:39 At the request of: JUANCHO GRADY Procedure: XR chest 1V PROCEDURE: XR chest 1V DATE: 10/10/2023 11:45 AM ROD AND TUBE STRAIGHTENER COMPARISONS: 10/07/2023 CLINICAL INDICATION: 77 years Female hypoxia FINDINGS: The heart is upper normal in size and is stable. The pulmonary vasculature does not appear congested. There is moderate elevation right hemidiaphragm, stable. There is slight right infrahilar atelectasis or fibrosis, stable. This is probably related to the high diaphragm position. The lungs are otherwise clear. There is no evidence of pleural effusion or pneumothorax. XR/XR chest 1V IMPRESSION: Stable chest. Electronically authenticated by: DANIEL BARRETT Date: 10/10/2023 13:39
[2023-10-10] MEDS: PANTOPRAZOLE SODIUM 40 MG VIAL IV (13:16)
[2023-10-10] MEDS: HYDROCODONE/ACET 5-325 MG TABLET 1 TAB PO (14:38)
[2023-10-10] MEDS: ATORVASTATIN CALCIUM 10 MG TABLET PO (21:42)
--- NOTE | 2023-10-10 23:00 | PC.NURSE ---
[place] patient calling out. Found patient removed all of clothing, removed abductor pillow and scd's and was attempting to get up. Patient was anxious stating she had to pee. Educated on orellana that was in placed. Orellana was draining and patent. Call light in place and bed alarm on.
[2023-10-11] MEDS: MORPHINE SULFATE 2 MG/ML SYRINGE IV ×2 (00:01→06:21)
[2023-10-11 02:01] VITALS: O2SAT 94
[2023-10-11 03:44] VITALS: BP 155/84; PULSE 85; RESP 18; TEMP 36.7; O2SAT 93
[2023-10-11] MEDS: LEVOTHYROXINE SODIUM 100 MCG TABLET PO (05:26)
--- NOTE | 2023-10-11 05:41 | PC.NURSE ---
Patient restless and attempting to get out of bed. Redirection unsuccessful. Patient provided fresh water and offered a book to read. She attempted several times to exit the bed.
[2023-10-11 05:44] LABS: Eosinophils Absolute Auto 0.1 10^3/uL (0.0-0.7); Eosinophils Percent Auto 1.5 % (0.9-7.0); Hematocrit 24.7 % (36.0-48.0); Hemoglobin 8.3 g/dL (12.0-16.0); Immature Granulocytes Abs Auto 0.02 10^3/uL (0.00-0.03); Immature Granulocytes Pct Auto 0.3 % (0.0-0.5); Lymphocytes Absolute Auto 0.8 10^3/uL (1.2-3.8); Lymphocytes Percent Auto 13.1 % (20.5-60.0); Mean Corpuscular HGB Conc 33.6 g/dL (29.9-35.2); Mean Corpuscular Hemoglobin 34.6 pg (26.7-34.0); Mean Corpuscular Volume 102.9 fL (81.0-99.0); Monocytes Absolute Auto 0.7 10^3/uL (0.3-0.8); Monocytes Percent Auto 11.3 % (1.7-12.0); Neutrophils Absolute Auto 4.5 10^3/uL (1.4-6.5); Neutrophils Percent Auto 73.8 % (43.0-75.0); Platelet Count 78 10^3/uL (150-450); Red Cell Distribution Width 13.4 % (11.0-15.0); White Blood Count 6.1 10^3/uL (4.0-11.0)
[2023-10-11 05:58] LABS: Alanine Aminotransferase 30 U/L (14-59); Albumin Globulin Ratio 0.8; Albumin Level 2.3 g/dL (3.4-5.0); Alkaline Phosphatase 69 U/L (46-116); Anion Gap 9.5; Aspartate Amino Transferase 27 U/L (15-37); BUN Creatinine Ratio 25.8; Bilirubin Total 0.3 mg/dL (0.2-1.0); Carbon Dioxide 27.4 mmol/L (21.0-32.0); Chloride 105 mmol/L (98-107); Estimated GFR (African America >60 (>=60); Estimated GFR (Non-African Ame 58 (>=60); Glucose 107 mg/dL (74-106); Potassium 3.9 mmol/L (3.5-5.1); Sodium 138 mmol/L (136-145); Total Protein 5.3 g/dL (6.4-8.2)
[2023-10-11 06:24] LABS: Glucometer 118 mg/dL (74-106)
[2023-10-11 08:00] VITALS: BP 154/77; PULSE 84; RESP 16; TEMP 36.9; O2SAT 95
--- NOTE | 2023-10-11 09:14 | P.PN_ITS ---
Progress Note: Subjective Subjective Interval history: Just woke up patient, not quite as good as yesterday, confused to place. Did have some agitation earlier but nurse was able to settle down without medications Exam Constitutional Vital Signs, click to edit/add: Last Vital Signs Temp 98.4 F 10/11/23 08:00 Pulse 84 10/11/23 08:00 Resp 16 10/11/23 08:00 BP 154/77 H 10/11/23 08:00 Pulse Ox 95 10/11/23 08:00 O2 Del Method Room Air 10/11/23 08:00 O2 Flow Rate 1 10/10/23 08:05 Documenting provider has reviewed patient's vital signs: yes Common normals: apparent distress (Mild anxiety) Chest Common normals: inspection of chest normal Respiratory Common normals: normal respiratory effort and no retractions Cardio Common normals: regular rate and regular rhythm GI Common normals: Normal to inspection, nondistended, normoactive bowel sounds present Neuro Common normals: not oriented x3 Psych Common normals: negative for affect normal Attitude: engaged Progress Note: Objective Labs Labs: Short CBC 10/11/23 Range/Units 05:08 WBC 6.1 (4.0-11.0) 10^3/uL Hgb 8.3 L (12.0-16.0) g/dL Hct 24.7 L (36.0-48.0) % Plt Count 78 L (150-450) 10^3/uL BMP 10/11/23 05:08 Sodium 138 Potassium 3.9 Chloride 105 Carbon Dioxide 27.4 BUN 24.0 H Creatinine 0.93 Glucose 107 H Calcium 9.0 Liver Function 10/11/23 Range/Units 05:08 Total Bilirubin 0.3 (0.2-1.0) mg/dL AST 27 (15-37) U/L ALT 30 (14-59) U/L Alkaline Phosphatase 69 (46-116) U/L Albumin 2.3 L (3.4-5.0) g/dL Progress Note: A&P Assessment and Plan (1) Femoral neck fracture: Assessment and Plan: Plan per orthopedics Qualifiers: Encounter type: subsequent encounter Fracture type: closed (2) Pre-operative cardiovascular examination: Assessment and Plan: Tolerated surgical procedure well (3) UTI (urinary tract infection): Assessment and Plan: E. coli UTI sensitive to current antibiotics (4) CHRISTIAN (acute kidney injury): Assessment and Plan: Monitor daily, back to baseline today (5) Dehydration: Assessment and Plan: Encourage p.o. intake (6) Thrombocytopenia: Assessment and Plan: Down again further today. Will hold off on Lovenox due to possible acute blood loss (7) Vertigo: Assessment and Plan: Denies this morning (8) Hypothyroid: Assessment and Plan: Home medications (9) Essential (primary) hypertension: Assessment and Plan: Stable this morning Plan Added diagnoses Acute blood loss anemia secondary to hip fracture-Down 4 g from baseline. Will check occult blood, will hold off on Lovenox Confusion seemed to be somewhat worse than yesterday. Continue to monitor. Just waiting on placement at this point. Urinary Catheter Management Urinary Catheter Management Urethral: Cath placed during this visit: yes Urethral indwelling: Yes Reason for continuing: measure accurate output Insertion date: 10/07/23 Insertion time: 20:25
[2023-10-11] MEDS: MECLIZINE HCL 12.5 MG TABLET 25 MG PO ×2 (09:27→21:00)
[2023-10-11] MEDS: METOPROLOL SUCCINATE 25 MG TAB.ER.24H 50 MG PO (09:27)
[2023-10-11] MEDS: ENSURE HP 237 ML LIQUID PO ×2 (09:27→21:09)
--- NOTE | 2023-10-11 09:47 | CM.NOTE ---
Rounds made with Dr. Wise. Discharge when precert obtained.
[2023-10-11] MEDS: LEVOFLOXACIN IN DEXTROSE 5 % 750 MG/150 ML IV.SOLN 100 MG IV (10:03)
[2023-10-11] MEDS: 0.9 % SODIUM CHLORIDE 250 ML 10 ML IV (10:05)
--- NOTE | 2023-10-11 11:07 | PT.DAILY ---
Physical Therapy Daily Note PT Daily Note/Assess Start: 10/09/23 08:13 Freq: Status: Active Protocol: Document 10/11/23 11:04 REGGIE (Rec: 10/11/23 11:07 REGGIE [id number]) Physical Therapy Daily Note/Assessment Time In/Time Out Time In 10:50 Time Out 11:00 Pain In Pain N/A Pain Out Pain N/A Subjective Subjective Sitting in BS chair upon arrival. Agrees to PT. Reports needing to pee (pt has catheter in but still feeling pressure) Therapeutic Exercise Time Therapeutic Exercise Minutes (minutes) 5 Therapeutic Exercise Units 0 Therapeutic Exercise Treatment Therapeutic Exercise Treatment Long sitting with feet elevated AP, QS, GS 10x ea . Feet lowered AP, LAQ, add squeezes 10x ea. Therapeutic Activity Time Therapeutic Activity Minutes (minutes) 5 Therapeutic Activity Units 1 Therapeutic Activity Treatment Chair Transfer Ability Moderate Assist Therapeutic Activity Comments 3x sit>stand. First two attempts needing ModA but thrid attempt pt only requires CGA. Static standing at RW 30 sec max for ea attempt. Pt very vocal and fearful ( confused about needing to urinate) Returned to BS chair upon completion with feet elevated, call light in reach and needs met. Total Physical Therapy Time Total Therapy Minutes 10 Total Physical Therapy Units 1 Summary Daily Note Summary Improved transfer ability with third attempt during this session.
[2023-10-11] MEDS: PANTOPRAZOLE SODIUM 40 MG VIAL IV (11:32)
[2023-10-11] MEDS: HYDROCODONE/ACET 5-325 MG TABLET 2 TAB PO ×2 (11:33→16:59)
[2023-10-11] MEDS: ONDANSETRON PF 4 MG/2 ML VIAL IV (11:52)
[2023-10-11 12:00] VITALS: BP 132/84; PULSE 97; RESP 16; O2SAT 98
--- NOTE | 2023-10-11 12:07 | SWNOTE1 ---
Case management sent updates this morning, operative note, progress note, and physical therapy notes from weekend to [facility]. HARJIT then sent updated nursing notes as pt had confusion, progress note from today, occupational therapy notes, labs, vitals, and med list to [facility]. Karrie at [facility] sent HARJIT an e-mail and precert was started this morning.
--- NOTE | 2023-10-11 14:18 | PC.NURSE ---
Patient pulled her orellana catheter out. Catheter discontinues per Dr. Wise
--- NOTE | 2023-10-11 14:23 | PM.ORPN ---
Progress Note: A&P Assessment and Plan (1) Femoral neck fracture: Assessment and Plan: Postoperative day #3 from right hip hemiarthroplasty. Ortho stable Hemoglobin stable the past 2 days. Agree with holding anticoagulants Follow-up in my office in 3 weeks Qualifiers: Encounter type: subsequent encounter Fracture type: closed (2) Pre-operative cardiovascular examination: (3) UTI (urinary tract infection): (4) CHRISTIAN (acute kidney injury): (5) Dehydration: (6) Thrombocytopenia: (7) Vertigo: (8) Hypothyroid: (9) Essential (primary) hypertension: Subjective Subjective Interval history: Patient reports currently she is doing well. Very minimal hip discomfort Exam Narrative Exam Narrative: Patient has been confused but currently she is alert and oriented to person and place. She is aware she is in the hospital for right hip fracture. Her thigh is soft with no indication of any significant bleeding into the thigh. Her dressing is clean and dry without any drainage. Her distal neurovascular status is stable Constitutional Vital Signs, click to edit/add: Last Vital Signs Temp 98.4 F 10/11/23 08:00 Pulse 97 H 10/11/23 12:00 Resp 16 10/11/23 12:00 BP 132/84 10/11/23 12:00 Pulse Ox 98 10/11/23 12:00 O2 Del Method Room Air 10/11/23 12:00 O2 Flow Rate 1 10/10/23 08:05 Urinary Catheter Management Urinary Catheter Management Urethral: Cath placed during this visit: yes Urethral indwelling: Yes Reason for continuing: surgical procedure Insertion date: 10/07/23 Insertion time: 20:25
[2023-10-11 16:00] VITALS: BP 131/79; PULSE 82; RESP 18; TEMP 36.3; O2SAT 94
--- NOTE | 2023-10-11 16:15 | SWNOTE1 ---
Karrie from [facility] is here to do an onsite visit with pt and family. SW took her to the room. Nursing is aware.
[2023-10-11 20:00] VITALS: BP 131/65; PULSE 85; RESP 18; TEMP 36.5; O2SAT 96
[2023-10-11] MEDS: ATORVASTATIN CALCIUM 10 MG TABLET PO (21:08)
[2023-10-12] VITALS: BP 153/78; PULSE 87; RESP 18; TEMP 36.6; O2SAT 94
[2023-10-12] MEDS: HYDROCODONE/ACET 5-325 MG TABLET 2 TAB PO (00:43)
--- NOTE | 2023-10-12 02:19 | PC.NURSE ---
Bed alarm going off. Patient found climbing out of bed. She removed her IV because se said I was just itching my arm .Patient cleaned up, sat on bedside commode to void. When narrative writer educated on why I needed to place a new IV patient said I don't want a new one I'm laving for rehab . Dont I have any rights? INTERIOR DESIGN ASSISTANT notified.
[2023-10-12 04:00] VITALS: BP 167/86; PULSE 87; RESP 18; TEMP 36.6; O2SAT 95
[2023-10-12] MEDS: LEVOTHYROXINE SODIUM 100 MCG TABLET PO (05:18)
[2023-10-12 05:26] LABS: Eosinophils Absolute Auto 0.1 10^3/uL (0.0-0.7); Eosinophils Percent Auto 1.1 % (0.9-7.0); Hematocrit 24.6 % (36.0-48.0); Hemoglobin 8.2 g/dL (12.0-16.0); Immature Granulocytes Abs Auto 0.04 10^3/uL (0.00-0.03); Immature Granulocytes Pct Auto 0.6 % (0.0-0.5); Lymphocytes Absolute Auto 0.9 10^3/uL (1.2-3.8); Lymphocytes Percent Auto 14.2 % (20.5-60.0); Mean Corpuscular HGB Conc 33.3 g/dL (29.9-35.2); Mean Corpuscular Hemoglobin 34.6 pg (26.7-34.0); Mean Corpuscular Volume 103.8 fL (81.0-99.0); Mean Platelet Volume 9.6 fL (9.5-13.5); Monocytes Absolute Auto 0.7 10^3/uL (0.3-0.8); Monocytes Percent Auto 11.4 % (1.7-12.0); Neutrophils Absolute Auto 4.6 10^3/uL (1.4-6.5); Neutrophils Percent Auto 72.7 % (43.0-75.0); Platelet Count 82 10^3/uL (150-450); Red Blood Count 2.37 10^6/uL (4.20-5.40); Red Cell Distribution Width 13.3 % (11.0-15.0); White Blood Count 6.3 10^3/uL (4.0-11.0)
[2023-10-12 06:05] LABS: Alanine Aminotransferase 28 U/L (14-59); Albumin Globulin Ratio 0.7; Albumin Level 2.2 g/dL (3.4-5.0); Alkaline Phosphatase 69 U/L (46-116); Anion Gap 8.5; Aspartate Amino Transferase 24 U/L (15-37); BUN Creatinine Ratio 27.2; Bilirubin Total 0.4 mg/dL (0.2-1.0); Calcium 8.7 mg/dL (8.5-10.1); Carbon Dioxide 26.5 mmol/L (21.0-32.0); Chloride 105 mmol/L (98-107); Estimated GFR (African America >60 (>=60); Estimated GFR (Non-African Ame >60 (>=60); Globulin 3.1 g/dL; Glucose 112 mg/dL (74-106); Sodium 136 mmol/L (136-145); Total Protein 5.3 g/dL (6.4-8.2)
[2023-10-12] MEDS: MECLIZINE HCL 12.5 MG TABLET 25 MG PO (09:15)
[2023-10-12] MEDS: METOPROLOL SUCCINATE 25 MG TAB.ER.24H 50 MG PO (09:15)
[2023-10-12] MEDS: HYDROCODONE/ACET 5-325 MG TABLET 1 TAB PO (09:15)
[2023-10-12] MEDS: ENSURE HP 237 ML LIQUID PO (09:15)
[2023-10-12 09:20] VITALS: BP 105/68; PULSE 91; RESP 18; TEMP 36.4; O2SAT 95
--- NOTE | 2023-10-12 09:52 | CM.NOTE ---
Rounds made with Dr. Wise. Plan for discharge to [place] when approved by Insurance.
[2023-10-12] MEDS: FLUTICASONE PROPIONATE 50 MCG NASAL SPRAY 2 SPRAY NS (11:27)
--- NOTE | 2023-10-12 11:31 | SWNOTE1 ---
HARJIT received message from Denisse at [facility] and pt is approved to go. SW updated doctor and nursing.
--- NOTE | 2023-10-12 11:51 | PT.DAILY ---
Physical Therapy Daily Note PT Daily Note/Assess Start: 10/09/23 08:13 Freq: Status: Active Protocol: Document 10/12/23 11:47 REGGIE (Rec: 10/12/23 11:51 REGGIE [id number]) Physical Therapy Daily Note/Assessment Time In/Time Out Time In 10:52 Time Out 11:02 Pain In Pain N/A Pain Out Pain N/A Subjective Subjective Pt supine upon arrival. Reports just getting comfortable and ready to take a nap. Was in chair for a while this morning and wishes to remain in bed. pt does agree to supine bed level ex at this time. Therapeutic Exercise Time Therapeutic Exercise Minutes (minutes) 8 Therapeutic Exercise Units 1 Therapeutic Exercise Treatment Therapeutic Exercise Treatment Supine AP, QS, GS, heel slides (AA R), abd slides (AA R), SLR (AA R) 10x ea with increased time needed and multiple vc/tactile cues for proper form. Total Physical Therapy Time Total Therapy Minutes 8 Total Physical Therapy Units 1 Summary Daily Note Summary Min increased pain with SLR ON R but does subside when returned to neutral.
[2023-10-12 12:44] VITALS: BP 100/67; PULSE 86; RESP 18; TEMP 36.3; O2SAT 97
--- NOTE | 2023-10-12 12:57 | SWNOTE1 ---
HARJIT set up trips for 2:30-3:00. Nurse practicitoner is going to work on dc orders. SW notified family, nursing, and VV of time.
--- NOTE | 2023-10-12 13:21 | P.DS_ITS ---
<Statement entered by Wilman Wise MD - 10/13/23 05:54> This documentation has been reviewed and approved. Patient was seen and evaluated in the morning of discharge. Patient still confused as to place. Family was present in the room at the time. No additional findings to what has been stated in the above record. Further dementia treatment possible as an outpatient. Patient likely to get worse at rehab facility DS: Providers Provider Date of admission: 10/07/23 22:27 Primary care physician: FERNIE LEONG Consults: 10/07/23 Consult to Dietitian Routine Reason For Exam: 20 pound loss Reason for consultation: 20 pound weight loss 10/07/23 21:06 Consult to Orthopedic Surgery Routine Consulting Provider: Charles Hendricks Reason For Exam: Reason for consultation: R Femoral Neck Fx, OR Wednesday Has provider been notified: Yes 10/08/23 11:58 Occupational Therapy Eval and Treat Routine Reason for consultation: Hip fracture. Start after surgery Has provider been notified: No Physical Therapy Eval and Treat Routine Reason for consultation: Hip fracture. Start after surgery Has provider been notified: No 10/08/23 16:44 Physical Therapy Eval and Treat Routine Reason for consultation: WBAT Has provider been notified: No Discharging clinician: Adelina Bolton DS: Diagnosis Discharge Diagnosis (1) Femoral neck fracture: Qualifiers: Encounter type: subsequent encounter Fracture type: closed (2) Pre-operative cardiovascular examination: (3) UTI (urinary tract infection): (4) CHRISTIAN (acute kidney injury): (5) Dehydration: (6) Thrombocytopenia: (7) Vertigo: (8) Hypothyroid: (9) Essential (primary) hypertension: (10) ABLA (acute blood loss anemia): (11) Fall: Qualifiers: Encounter type: subsequent encounter Qualified Code(s): W19.XXXD - Unspecified fall, subsequent encounter DS: Summary Hospital Course Hospital Course: The patient was admitted with a right femoral neck fracture after suffering a fall at home. Her fall resulted from an acute vertigo episode which have been chronic for this patient for some time. She was seen in consult by Dr. Hendricks, orthopedic surgeon, and he performed a right hip hemiarthroplasty on 10/08/2023. The patient experienced some postoperative acute blood loss anemia, but was asymptomatic with this. Her hemoglobin has remained stable for several days and no PRBC transfusions were indicated. The patient was also noted to have a UTI on admission and this was treated with Rocephin and then changed to Levaquin. E. coli in the urine was sensitive to both antibiotics. She completed a 6-day course of appropriate IV antibiotic treatment, and no further antibiotic treatment is needed at this time. She was also noted to be dehydrated and with acute kidney injury at the time of admission. She was treated with IV fluids and her dehydration and kidney injury completely resolved. She has thrombocytopenia which is likely chronic. This drifted down after surgery but remains stable at discharge. An outpatient follow-up CBC, would be appropriate within 1 to 2 weeks to continue to monitor anemia and thrombocytopenia. Anticoagulation for DVT prophylaxis was held when her platelets continued to drop. The orthopedic surgeon was in agreement with this and no further anticoagulation has been prescribed at discharge. The pt should follow up with Dr Hendricks in 3 weeks. Time Spent with Patient Time attestation: Total time spent providing and/or coordinating discharge services: Time spent: greater than 30 minutes Specific discharge activities: Physical exam, discussion of discharge plan, questions answered. Exam Constitutional Vital Signs, click to edit/add: Last Vital Signs Temp 97.3 F L 10/12/23 12:44 Pulse 86 10/12/23 12:44 Resp 18 10/12/23 12:44 BP 100/67 10/12/23 12:44 Pulse Ox 97 10/12/23 12:44 O2 Del Method Room Air 10/12/23 12:44 O2 Flow Rate 1 10/10/23 08:05 Common normals: no apparent distress and alert General appearance: cooperative Orientation/consciousness: Yes awake, Yes oriented to person, Yes oriented to place and Yes confused (at times); not oriented to time HENCA Common normals: normocephalic and head/scalp atraumatic Eye Common normals: PERRL, EOMs intact bilaterally, conjunctivae normal and no scleral icterus Neck & C-Spine Common normals: no JVD Respiratory Common normals: normal respiratory effort, no use of accessory muscles and clear to auscultation bilaterally Effort & inspection: able to speak in complete sentences and symmetric chest movement Cardio Common normals: no JVD, regular rate, regular rhythm, S1 normal heart sound, S2 normal heart sound, no murmurs and peripheral pulses 2+ throughout GI Common normals: Normal to inspection, nondistended, normoactive bowel sounds present, soft to palpation and non-tender Bladder/kidney exam: bladder normal to palpation Extremity Common normals: normal to inspection, full ROM, normal capillary refill and no pedal edema General: no clubbing and no cyanosis Neuro Common normals: moves all extremities, no focal motor deficits and no sensory deficits noted Speech: speech normal Psych Common normals: mental status grossly normal and activity/motor behavior normal DS: Data Data Completed and Pending Labs on day of discharge: Labs from last 24 hours 10/12/23 05:16 WBC 6.3 RBC 2.37 L Hgb 8.2 L Hct 24.6 L MCV 103.8 H MCH 34.6 H MCHC 33.3 RDW 13.3 Plt Count 82 L MPV 9.6 Neut % (Auto) 72.7 Lymph % (Auto) 14.2 L Gem % (Auto) 11.4 Eos % (Auto) 1.1 Baso % (Auto) 0.0 L Neut # (Auto) 4.6 Lymph # (Auto) 0.9 L Gem # (Auto) 0.7 Eos # (Auto) 0.1 Baso # (Auto) 0.0 Abs Immat Gran (auto) 0.04 H Imm/Tot Granulo (auto) 0.6 H Sodium 136 Potassium 4.0 Chloride 105 Carbon Dioxide 26.5 Anion Gap 8.5 BUN 22.0 H Creatinine 0.81 Est GFR ( Amer) >60 Est GFR (Non-Af Amer) >60 BUN/Creatinine Ratio 27.2 Glucose 112 H Calcium 8.7 Total Bilirubin 0.4 AST 24 ALT 28 Alkaline Phosphatase 69 Total Protein 5.3 L Albumin 2.2 L Globulin 3.1 Albumin/Globulin Ratio 0.7 Discharge Plan Discharge Disposition: er SNF Condition: Good Discharge Medications: New hydrocodone-acetaminophen 5-325 mg Tablet 2 tab PO Q4H PRN (Reason: Pain Scale 7-10) Qty: 20 0RF hydrocodone-acetaminophen 5-325 mg Tablet 1 tab PO Q4H PRN (Reason: Pain Scale 4-6) Qty: 20 0RF fluticasone propionate 50 mcg/actuation [place],Suspension 2 spray intranasal QD Qty: 16 0RF meclizine 25 mg tablet 25 mg PO TID PRN (Reason: dizziness) Qty: 30 0RF Continued meclizine 25 mg tablet 25 mg PO BID acetaminophen [Tylenol Extra Strength] 500 mg tablet 1,000 mg PO Q6H PRN (Reason: pain) atorvastatin 10 mg tablet 10 mg PO DAILY metoprolol succinate 25 mg tablet extended release 24 hr 25 mg PO DAILY levothyroxine 75 mcg tablet 75 mcg PO DAILY omeprazole 40 mg capsule,delayed release(DR/EC) 40 mg PO DAILY Discontinued tramadol 50 mg tablet 50 mg PO TID Activity Restrictions/Additional Instructions: - Recommend follow up CBC to monitor thrombocytopenia/anemia in 1 week - Follow up at Dr Hendricks's office in 3 weeks - PT/OT daily - WBAT to [facility] Registered Nurse Cardiovascular Icu/Securities Compliance Examiner Instructions: Discharge to [facility] skilled Forms: Portal Instructions
[2023-10-12 15:08] VITALS: BMI 25.5
== END 2023-10-12 14:11 | DRG 522 ==
LOC: ER 20:41 → MS 22:31
PROVIDERS: Nurse Practitioner Acute Care; Orthopaedic Surgery; Physician Assistant; Admitting Provider Family Medicine; Emergency Provider Emergency Medicine; PCP Family Medicine; Visit Provider Nurse Practitioner
PROC: 0SRR0J9 Replacement of Right Hip Joint, Femoral Surface with Synthetic Substitute, Cemented, Open Approach (ICD-10-PCS; principal; 2023-10-08 13:30)
DX: S72.001A Fracture of unspecified part of neck of right femur, initial encounter for closed fracture (principal); N39.0 Urinary tract infection, site not specified; N17.9 Acute kidney failure, unspecified; D62 Acute posthemorrhagic anemia; B96.20 Unspecified Escherichia coli [E. coli] as the cause of diseases classified elsewhere; W18.30XA Fall on same level, unspecified, initial encounter; Y92.009 Unspecified place in unspecified non-institutional (private) residence as the place of occurrence of the external cause; Z66 Do not resuscitate; E86.0 Dehydration; R29.6 Repeated falls; I49.8 Other specified cardiac arrhythmias; R41.0 Disorientation, unspecified; T38.1X6A Underdosing of thyroid hormones and substitutes, initial encounter; Z91.138 Patient's unintentional underdosing of medication regimen for other reason; I10 Essential (primary) hypertension; R42 Dizziness and giddiness; R63.4 Abnormal weight loss; Z68.25 Body mass index [BMI] 25.0-25.9, adult; M47.816 Spondylosis without myelopathy or radiculopathy, lumbar region; D69.6 Thrombocytopenia, unspecified; E03.9 Hypothyroidism, unspecified; E78.00 Pure hypercholesterolemia, unspecified; M50.30 Other cervical disc degeneration, unspecified cervical region; K21.9 Gastro-esophageal reflux disease without esophagitis; M06.9 Rheumatoid arthritis, unspecified; M19.90 Unspecified osteoarthritis, unspecified site; H91.90 Unspecified hearing loss, unspecified ear; M51.36 Other intervertebral disc degeneration, lumbar region; M48.062 Spinal stenosis, lumbar region with neurogenic claudication; Z79.899 Other long term (current) drug therapy; Z79.890 Hormone replacement therapy; Z79.891 Long term (current) use of opiate analgesic; Z82.49 Family history of ischemic heart disease and other diseases of the circulatory system; Z82.3 Family history of stroke
CPT/HCPCS: 36415; 51702; 64447; 70450; 71045; 72125; 73502; 80053; 81001; 84436; 84443; 84484; 85025; 85610; 87086; 87150; 87186; 88305; 88311; 93005; 93306; 96361; 96365; 96366; 96368; 96372; 96375; 96376; 97110; 97163; 97165; 97530; 97535; 99285; 99999; C1713; C1776; G0328; J1094; J1170; J2704

== ENCOUNTER 2023-10-25 10:54 | Outpatient (OUT) | payer MEDICARE, SELFPAY ==
--- NOTE | 2023-10-25 | XR_ITS ---
[address] [address] Patient Name: DEXTER MCCARTHY MRN: [id number] date: 1945 Sex: F Assigned Patient Location: Current Patient Location: Accession/Order Number: [id number] Exam Date: 10/25/2023 11:11 Report Date: 10/26/2023 08:18 At the request of: JASEN GARRIDO Procedure: XR hip RT 2V w/ pelvis PROCEDURE: XR hip RT 2V w/ pelvis COMPARISON: 10/07/2023 HISTORY: RIGHT HIP PAIN, PELVIS PAIN FINDINGS: BONES:Right total hip arthroplasty. No acute fracture, dislocation or mechanical failure. SOFT TISSUES:Lateral thigh surgical ysabel. Vascular calcifications EFFUSION:None visible. OTHER: Negative. XR/XR hip RT 2V w/ pelvis IMPRESSION: No acute fracture or mechanical failure Electronically authenticated by: IVAN ESTEBAN Date: 10/26/2023 08:18
--- OUTSIDE RECORDS SUMMARY | 2023-10-25 10:58 | XMS_ITS | CCD ---
Author Name Unknown Address [address] [place] [address] Organization [facility] Care Team Providers Care Supervisor [place] Name Role Phone Ap Holland Unavailable FABIENNE Briscoe Primary Care Provider MD Ap Holland Attending Provider ANJALI MAK Attending Unavailable ANJALI MAK Attending Unavailable ROSLYN BRISCOE Attending UnavailROSLYN Alvares Attending Unavailab sharan BRISCOE, ROSLYN Overton Attending Unavailab sharan BRISCOE, ROSLYN Overton Attending Unavailab sharan BRISCOE, ROSLYN Overton Referring PIERRE Kennedy Attending Unavailab ROSLYN Wei Attending Unavailab Pablo AVALOS, Kulwant Cross Attending Unavailable Ricky AVALOS, Kulwant Cross Attending Unavailable Charles Hendricks Admitting Unavailable Charles Hendricks Attending Unavailable Roslyn Briscoe Primary Care Unavailable Ap Holland Admitting Unavailable Ap Holland Attending Unavailable Roslyn Briscoe Primary Care Unavailable Allergies Allergy Classification Reported Allergen(s) Allergy Type Date of Onset Reaction(s) Facility (7 sources) Pollen Drug allergy Unknown [facility] Other (1 source) Pollen Drug allergy (disorder) 05-18-2023 [facility] Repository Medications Current Medications Medication Drug Class(es) Dates [...] Test Name Value Interpretation Reference Range Facil rhonda William 10-08-2023 L Specimen: [id number] Received: 10/11/23 Status: MAURI Ga Num: [id number] Spec Type: Surgical Subm Dr: Charles Hendricks Tissues: A Femoral Head - Fracture (RT HIP) Procedures: HE/2, Gross/Micro L4, Decalcification Age/ Patient Sex Location Account Attending Physician Yvonne Liz 77/F LABELL [id number] Charles Hendricks SPEC NUM: [id number] RECD: 10/11/23 STATUS: MAURI GA NUM: [id number] JAVI: 10/08/[address]: Charles Hendricks ENTERED: 10/11/23-[address] [facility] [address]: Syd,Lab SPEC TYPE: Surgical DEPT: LUZ CASTELLANOS ORDERED: HE/2, Gross/Micro L4, Decalcification ORDERED: HE/2, Gross/Micro L4, Decalcification Pathological Diagnosis Right Hip Bone And Tissue, Hemiarthroplasty: 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 Clinical Information Right hip fracture Gross Description Received in formalin labeled with the patient's name, date of and right femur head is a 4.8 x 4.7 x 4.0 cm femoral head with a detached 4.5 x 3.0 x 2.7 cm apparent femoral neck. The femoral head has a smooth, xiong-pena articular surface without eburnation. The cut surface of the femoral head is yellow-xiong, trabecular with hemorrhage at the resection margin. The marrow of the femoral neck is xiong-red, trabecular. Manufacturing Applications Engineer are submitted following decalcification in 2 cassettes as follows: A1 - Femoral head A2 - Reamings from femoral neck CPT Codes 30635, 22324 -------- -------- Specimen: [id number] Received: 10/11/23 Status: MAURI Ga Num: [id number] Spec Type: Surgical Subm Dr: Charles Hendricks Tissues: A Femoral Head - Fracture (RT HIP) Procedures: HE/2, Gross/Micro L4, Decalcification -------- Patient: Yvonne Liz [id number] (Continued) -------- Signed (signature on file) Agatha Brantley MD 10/18/23 [address] [facility] [address] HEAD WO IV CONTRASTon CT HEAD [...] 05-10-2023 XR hip RT min 2V(w/wo pelvis)* [facility] [place] [address] [place] [address] XRay Report Signed Patient: Yvonne Liz MR#: [id number] 15 : 1945 Acct:[id number] Age/Sex: 77 / F ADM Date: 05/10/23 Loc: XD Room: Type: [facility] Attending Dr: Ap Holland MD Copies to: [...] Nick Stokes M.D.05/10/2023 3:23 PM Dictation Location: [place] [address] Transcribed By: [facility] 05/10/23 152 Dictated By: Nick Stokes DO 05/10/23 1521 Signed By: 05/10/23 152 [facility] XR Spine Lumbar Complete w/F maxi AND [place] 12-10-2022 XR Spine Lumbar Complete w/Flex AND [...] by Roosevelt Motley on 12/10/2022 1457 Normal [facility] XR Hip Complete Right*on XR Hip Complete Right* HISTORY: Posterior hip radiating pain falls x 2 years FINDINGS: Mild bilateral superior medial hip joint space loss. No pincer or CAM deformities. Prominent arterial calcifications. IMPRESSION: 1. 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 Report reported and signed by Bonilla Mckeon on 04/29/2022 1031 Normal [facility] Complete Blood Count with Au to Diffon 01-13-2022 Basophils (Bld) [#/Vol] 0.06 10*3/uL Normal 0.00-0.20 [facility] Comment on above: Performed By: #### V ITD, CMP, TSH reflex FT4, CBCAD, FE Prof #### [facility] [address], [place] [id number] Basophils/100 WBC (Bld) 1.3 % Normal [facility] Comment on above: Performed By: #### V ITD, CMP, TSH reflex FT4, CBCAD, FE Prof #### [facility] [address], [place] [id number] Eosinophils (Bld) [#/Vol] 0.36 10*3/uL Normal 0.02-0.50 [facility] Comment on above: Performed By: #### V ITD, CMP, TSH reflex FT4, CBCAD, FE Prof #### [facility] [address], [place] [id number] Eosinophils/100 WBC (Bld) 7.6 % Normal [facility] Ot[facility] Comment on above: Performed By: #### V ITD, CMP, TSH reflex FT4, CBCAD, FE Prof #### [facility] [address], [place] [id number] Erythrocyte distribution width (RBC) [Ratio] 12.1 % Normal 11.0-15.0 [facility] Comment on above: Performed By: #### V ITD, CMP, TSH reflex FT4, CBCAD, FE Prof #### [facility] [address], [place] [id number] Hematocrit (Bld) [Volume fraction] 34.0 % Low 35.0-47.0 [facility] Comment on above: Performed By: #### V ITD, CMP, TSH reflex FT4, CBCAD, FE Prof #### [facility] [address], [place] [id number] Hemoglobin (Bld) [Mass/Vol] 11.9 g/dL Normal 11.6-15.5 [facility] Comment on above: Performed By: #### V ITD, CMP, TSH reflex FT4, CBCAD, FE Prof #### [facility] [address], [place] [id number] Lymphocytes (Bld) [#/Vol] 1.2 10*3/uL Normal 0.9-3.9 [facility] Comment on above: Performed By: #### V ITD, CMP, TSH reflex FT4, CBCAD, FE Prof #### [facility] [address], [place] [id number] Lymphocytes/100 WBC (Bld) 26.1 % Normal [facility] Comment on above: Performed By: #### V ITD, CMP, TSH reflex FT4, CBCAD, FE Prof #### [facility] [address], [place] [id number] MCH (RBC) [Entitic mass] 34.0 pg High 27.0-33.0 [facility] Comment on above: Performed By: #### V ITD, CMP, TSH reflex FT4, CBCAD, FE Prof #### [facility] [address], [place] [id number] MCHC (RBC) [Mass/Vol] 35.0 g/dL Normal 32.0-36.0 [facility] Comment on above: Performed By: #### V ITD, CMP, TSH reflex FT4, CBCAD, FE Prof #### [facility] [address], [place] [id number] MCV (RBC) [Entitic vol] 97 fL Normal 80-100 [facility] Comment on above: Performed By: #### V ITD, CMP, TSH reflex FT4, CBCAD, FE Prof #### [facility] [address], [place] [id number] Monocytes (Bld) [#/Vol] 0.4 10*3/uL Normal 0.2-0.9 [facility] Comment on above: Performed By: #### V ITD, CMP, TSH reflex FT4, CBCAD, FE Prof #### [facility] [address], [place] [id number] Monocytes/100 WBC (Bld) 8.9 % Normal [facility] Comment on above: Performed By: #### V ITD, CMP, TSH reflex FT4, CBCAD, FE Prof #### [facility] [address], [place] [id number] Neutrophils (Bld) [#/Vol] 2.6 10*3/uL Normal 1.5-7.8 [facility] Comment on above: Performed By: #### V ITD, CMP, TSH reflex FT4, CBCAD, FE Prof #### [facility] [address], [place] [id number] Neutrophils/100 WBC (Bld) 55.9 % Normal [facility] Comment on above: Performed By: #### V ITD, CMP, TSH reflex FT4, CBCAD, FE Prof #### [facility] [address], [place] [id number] Platelet mean volume (Bld) [Entitic vol] 11.00 fL Normal 7.50-12.50 [facility] Comment on above: Performed By: #### V ITD, CMP, TSH reflex FT4, CBCAD, FE Prof #### [facility] [address], [place] [id number] Platelets (Bld) [#/Vol] 102 10*3/uL Low 140-400 [facility] Comment on above: Performed By: #### V ITD, CMP, TSH reflex FT4, CBCAD, FE Prof #### [facility] [address], [place] [id number] RBC (Bld) [#/Vol] 3.50 10*6/uL Low 3.90-5.20 [facility] Specialist Comment on above: Performed By: #### V ITD, CMP, TSH reflex FT4, CBCAD, FE Prof #### [facility] [address], [place] [id number] RDW-SD 42.1 fL Normal 37.0-50.0 [facility] Comment on above: Performed By: #### V ITD, CMP, TSH reflex FT4, CBCAD, FE Prof #### [facility] [address], [place] [id number] WBC (Bld) [#/Vol] 4.7 10*3/uL Normal 3.8-11.0 [place] [place] [facility] Comment on above: Performed By: #### V ITD, CMP, TSH reflex FT4, CBCAD, FE Prof #### [facility] [address], [place] [id number] Comprehensive Metabolic Pane [facility] 01-13-2022 Albumin [Mass/Vol] 4.2 g/dL Normal 3.6-5.1 [place] [facility] [place] [facility] Comment on above: Performed By: #### V ITD, CMP, TSH reflex FT4, CBCAD, FE Prof #### [facility] [address], [place] [id number] Albumin/Globulin [Mass ratio] 1.8 {ratio} Normal 1.0-2.5 [facility] Otolaryngologist Comment on above: Performed By: #### V ITD, CMP, TSH reflex FT4, CBCAD, FE Prof #### [facility] [address], [place] [id number] ALP [Catalytic activity/Vol] 83 U/L Normal 35-119 [facility] Otol[facility]ologist Comment on above: Performed By: #### V ITD, CMP, TSH reflex FT4, CBCAD, FE Prof #### [facility] [address], [place] [id number] ALT [Catalytic activity/Vol] 28 U/L Normal 6-33 [facility] Otol[facility] Comment on above: Result Comment: 07/09 Female reference range changed. Performed By: #### V ITD, CMP, TSH reflex FT4, CBCAD, FE Prof #### [facility] [address], [place] [id number] Anion gap [Moles/Vol] 12 mmol/L Normal 12-20 [facility] Otolaryngologist Comment on above: Result Comment: Effe ctive 08/14/2019 reference range changed. Performed By: #### V ITD, CMP, TSH reflex FT4, CBCAD, FE Prof #### [facility] [address], [place] [id number] AST [Catalytic activity/Vol] 36 U/L High 9-34 [facility] Comment on above: Performed By: #### V ITD, CMP, TSH reflex FT4, CBCAD, FE Prof #### [facility] [address], [place] [id number] Bilirubin [Mass/Vol] 0.48 mg/dL Normal 0.30-1.20 [facility] Comment on above: Performed By: #### V ITD, CMP, TSH reflex FT4, CBCAD, FE Prof #### [facility] [address], [place] [id number] BUN/CREA 19 Ratio Normal 6-22 [facility] Comment on above: Performed By: #### V ITD, CMP, TSH reflex FT4, CBCAD, FE Prof #### [facility] [address], [place] [id number] Calcium [Mass/Vol] 9.5 mg/dL Normal 8.6-10.2 [facility] Comment on above: Performed By: #### V ITD, CMP, TSH reflex FT4, CBCAD, FE Prof #### [facility] [address], [place] [id number] Chloride [Moles/Vol] 105 mmol/L Normal 98-107 [facility] Comment on above: Performed By: #### V ITD, CMP, TSH reflex FT4, CBCAD, FE Prof #### [facility] [address], [place] [id number] CO2 [Moles/Vol] 27 mmol/L Normal 20-31 [facility] Comment on above: Performed By: #### V ITD, CMP, TSH reflex FT4, CBCAD, FE Prof #### [facility] [address], [place] [id number] Creatinine [Mass/Vol] 1.0 mg/dL Normal 0.6-1.4 [facility] Comment on above: Performed By: #### V ITD, CMP, TSH reflex FT4, CBCAD, FE Prof #### [facility] [address], [place] [id number] eGFRAA 67 mL/min/1.73m2 Normal >60 [facility] Comment on above: Performed By: #### V ITD, CMP, TSH reflex FT4, CBCAD, FE Prof #### [facility] [address], [place] [id number] eGFRNAA 55 mL/min/1.73m2 Low >60 [facility] Otolaryngologist Comment on above: Performed By: #### V ITD, CMP, TSH reflex FT4, CBCAD, FE Prof #### [facility] [address], [place] [id number] Globulin (S) [Mass/Vol] 2.3 g/dL Normal 1.9-3.7 [facility] Otol[facility]ologist Comment on above: Performed By: #### V ITD, CMP, TSH reflex FT4, CBCAD, FE Prof #### [facility] [address], [place] [id number] Glucose [Mass/Vol] 85 mg/dL Normal 65-99 [place] [facility] Comment on above: Result Comment: For FASTING Glucose --- ADA reference ranges: Normal 65-99 mg/dl Prediabetes 100-125 Diabetes >/= 126 Performed By: #### V ITD, CMP, TSH reflex FT4, CBCAD, FE Prof #### [facility] [address], [place] [id number] Potassium [Moles/Vol] 3.8 mmol/L Normal 3.5-5.5 [facility] Otol[facility]ologist Comment on above: Performed By: #### V ITD, CMP, TSH reflex FT4, CBCAD, FE Prof #### [facility] [address], [place] [id number] Protein [Mass/Vol] 6.5 g/dL Normal 6.1-8.1 [place] [facility] Comment on above: Performed By: #### V ITD, CMP, TSH reflex FT4, CBCAD, FE Prof #### [facility] [address], [place] [id number] Sodium [Moles/Vol] 140 mmol/L Normal 135-146 [place] [facility] Comment on above: Performed By: #### V ITD, CMP, TSH reflex FT4, CBCAD, FE Prof #### [facility] [address], [place] [id number] Urea nitrogen [Mass/Vol] 19 mg/dL Normal 7-25 [facility] Otolaryngologist Comment on above: Performed By: #### V ITD, CMP, TSH reflex FT4, CBCAD, FE Prof #### [facility] [address], [place] [id number] Iron Profileon 01-13-2022 %FESAT 45 % Normal 11-50 [facility] Comment on above: Performed By: #### V ITD, CMP, TSH reflex FT4, CBCAD, FE Prof #### [facility] [address], [place] [id number] FE 129 ug/dL Normal 40-190 [facility] Comment on above: Result Comment: Refe rence range change 06/25/2017. Prior reference range F 37-145 ug/dL, M 59-158 ug/dL. Performed By: #### V ITD, CMP, TSH reflex FT4, CBCAD, FE Prof #### [facility] [address], [place] [id number] TIBC 284 ug/dL Normal 250-450 [facility] Comment on above: Performed By: #### V ITD, CMP, TSH reflex FT4, CBCAD, FE Prof #### [facility] [address], [place] [id number] UIBC 155 ug/dL Normal 112-347 [facility] Comment on above: Performed By: #### V ITD, CMP, TSH reflex FT4, CBCAD, FE Prof #### [facility] [address], [place] [id number] TSH w/ Reflex to Free T4on 0 01-13-2022 TSH 3.100 uIU/mL Normal 0.400-4.500 [facility] Otolaryngologist Comment on above: Performed By: #### V ITD, CMP, TSH reflex FT4, CBCAD, FE Prof #### [facility] [address], [place] [id number] US Venous, Bilateral, Lower [place] 01-13-2022 US Venous, Bilateral, Lower Ext HISTORY: [...] Bonilla Mckeon on 01/13/2022 1441 Normal [facility] Vitamin B12/Folateon 022 Cobalamin (Vitamin B12) [Mass/Vol] 258 pg/mL Normal 211-946 [facility] Otolaryngologist Comment on above: Performed By: #### B 12/Fol #### [facility] [address], [place] [id number] FOL 11.6 ng/mL Normal >4.7 [facility] Otolaryngologist Comment on above: Result Comment: Refe rence range change 06/25/2017. Prior reference range F 4.8-37.3 ng/mL, M 4.5-32.2 ng/mL. Performed By: #### B 12/Fol #### [facility] [address], [place] [id number] Vitamin D 25-OHon 01-13-2022 VIT D 25 OH 30 ng/ml Normal >29 [facility] Otolaryngologist Comment on above: Result Comment: Ching min D Status Deficiency <20 ng/mL Insufficiency 20-29 ng/mL Optimal 30-100 ng/mL Possible Toxicity >=150 ng/mL Performed By: #### V ITD, CMP, TSH reflex FT4, CBCAD, FE Prof #### [facility] [address], [place] [id number] Vital Signs Date Time Vital Sign Value Performing Clinician Facility 05-10-2023 10:45-0400 Body height 162.56 cm Ap Holland Other [facility] Other 05-10-2023 10:45-0400 Body mass index (BMI) [Ratio] 25.4 kg/m2 Ap Holland Other [facility] Other 05-10-2023 10:45-0400 Body weight 67.13 kg Ap Holland Other [facility] Other 05-10-2023 10:45-0400 Diastolic blood pressure 80 mm[Hg] Ap Holland Other [facility] Other 05-10-2023 10:45-0400 Systolic blood pressure 122 mm[Hg] Ap Skyler Other [facility] Other 04-06-2023 11:15-0400 Body height 162.56 cm Ap Skyler Other [facility] Other 04-06-2023 11:15-0400 Body mass index (BMI) [Ratio] 26.09 kg/m2 Ap Skyler Other [facility] Other 04-06-2023 11:15-0400 Body weight 68.95 kg Ap Skyler Other [facility] Other 04-06-2023 11:15-0400 Diastolic blood pressure 84 mm[Hg] Ap Skyler Other [facility] Other 04-06-2023 11:15-0400 Systolic blood pressure 124 mm[Hg] Ap Skyler Other [facility] Other 03-23-2023 11:30-0400 Body height 162.56 cm Ap Skyler Other [facility] Other 03-23-2023 11:30-0400 Body mass index (BMI) [Ratio] 26.09 kg/m2 Ap Skyler Other [facility] Other 03-23-2023 11:30-0400 Body weight 68.95 kg Ap Skyler Other [facility] Other 03-23-2023 11:30-0400 Diastolic blood pressure 84 mm[Hg] Ap Skyler Other [facility] Other 03-23-2023 11:30-0400 Systolic blood pressure 140 mm[Hg] Ap Duganky Other [facility] Other 03-08-2023 09:00-0400 Body height 162.56 cm Ap Skyler Other [facility] Other 03-08-2023 09:00-0400 Body mass index (BMI) [Ratio] 26.74 kg/m2 Ap Skyler Other [facility] Other 03-08-2023 09:00-0400 Body weight 70.67 kg Ap Skyler Other [facility] Other 03-08-2023 09:00-0400 Diastolic blood pressure 80 mm[Hg] Ap Skyelr Other [facility] Other 03-08-2023 09:00-0400 SaO2% (BldA) [Mass fraction] 99 % Ap Duganky Other [facility] Other 03-08-2023 09:00-0400 Systolic blood pressure 130 mm[Hg] Ap Skyler Other [facility] Other Encounters Encounter Date Encounter Type Care Provider Facility Start: 10-08-2023 End: 10-08-2023 ambulatory Charles Hendricks Facility:[facility] Start: 09-27-2023 End: 09-28-2023 ambulatory Kulwant García MD Facility:[facility] Start: 09-13-2023 End: 09-14-2023 ambulatory Kulwant García [...] 05-10-2023 End: 05-10-2023 ambulatory Ap Hailey Skyler Facility:[facility] Start: 05-10-2023 End: 05-10-2023 ambulatory BEHAVIORAL ANALYST-C Roslyn Rachna Work Phone: [facility] Work Phone: Start: 05-10-2023 End: 05-10-2023 Patient encounter procedure BEHAVIORAL ANALYST-C Roslyn Rachna Work Phone: [facility] [place] Work Phone: Start: 04-29-2023 (PROC) PROCEDURE Ap Holland [facility] Start: 04-29-2023 End: 04-29-2023 ambulatory Ap Skyler Other [facility] Other Start: 04-06-2023 End: 04-06-2023 ambulatory Ap Holland Other [facility] Other Start: 04-06-2023 Office outpatient vi sit 25 minutes Apkalin Holland [facility] Start: 03-23-2023 End: 03-23-2023 ambulatory Ap Holland Other [facility] Other Start: 03-23-2023 Office outpatient vi sit 15 minutes Ap Holland [facility] Start: 03-16-2023 (PROC) PROCEDURE Ap Holland [facility] Start: 03-16-2023 End: 03-16-2023 ambulatory Ap Holland Other [facility] [facility] Other Start: 03-09-2023 End: 03-09-2023 ambulatory Ap Holland Other [facility] Other Start: 03-09-2023 Telephone encounter Ap Holland [facility] Start: 03-08-2023 End: 03-08-2023 ambulatory Ap Holland Other [facility] Other Start: 03-08-2023 Office consultation new/estab patient 60 min Ap Holland [facility] Procedures Date Procedure Procedure Detail Performing Clinician Start: 05-10-2023 Plain X-ray of right hip BEHAVIORAL ANALYST-C Roslyn Briscoe Work Phone: Payers Date Payer Category Payer Private Health Insurance 2023 Self-pay 2021 Medicare [id number] . [id number] 1945 Unknown [id number] .16.84 [id number] 1945 Unknown [id number] 2.16.84 0.1.240665.3.579.2.1258 1945 Unknown [id number] .16.84 0.1.776515.3.579.2.1258 1945 Unknown [id number] 2..840 .1.118066.3.579.2.1258 1945 Unknown [id number] 2.16.840 .1.965834.3.579.2.9 1945 Unknown [id number] 2.16.840 .1.159377.3.579.2.9 1945 Unknown [id number] 2.16.840 .1.772231.3.579.2.9 1945 Unknown [id number] 2.16.840 .1.598871.3.579.2.9 1945 Unknown [id number] 2.16.840 .1.489834.3.579.2.9 1945 Unknown [id number] 2.16. 840.1.096728.3.579.2.196 1945 Unknown [id number] 2.16. 840.1.321871.3.579.2.196 Medicare [id number] 2.1 [id number] Unknown [id number] 2.16.8 40.1.404452.3.579.2.531 Unknown [id number] 2.16.8 40.1.084699.3.579.2.531 Social History Date Type Detail Facility Sex Assigned At [employer] Other Start: 1945 Sex Assigned At Female F [facility] Evaluation note 05-10-2023 Note Date [...] up in 1 week for further evaluation. [employer] Other Evaluation note 04-06-2023 Note Date & [...] (ICD-10 - G89.29) Proceed with treatment plan. [facility] Other Evaluation note 03-23-2023 Note Date & [...] (ICD-10 - G89.29) Follow up as needed [facility] [facility] Other Evaluation note 03-08-2023 Note Date & [...] negative findings were considered in medical decision-making. [employer] Other Evaluation note Note Date & Type Note Facility Evaluation note No Information [facility] [employer] Other Evaluation note Note Date & Type Note Facility Evaluation note No assessment information availa [facility] Work Phone: History general Narrative - Reported Note Date & Type Note Facility History general Narrative - Reported Type Medical History hypercholestolemia Medical History stenosis [employer] Other Summary Purpose Family History No Family [...] section and content) DATE CREATED AUTHOR 12/11/2022 [facility] dical Specialist DATE CREATED AUTHOR AUTHOR'S ORGANIZ ATION 09/06/2023 [facility] dical Specialists EPIC DATE CREATED AUTHOR AUTHOR'S ORGANIZ ATION 10/08/2023 [facility] DATE CREATED AUTHOR AUTHOR'S ORGANIZ ATION 10/19/2023 [facility] REASON FOR VISIT (unrecogniz ed section and content) Referred by Roslyn rosenberg for Lumbar spine stenosis and arthritis; MRI done [facility] InformationRIGHT L4,5 TRANSFORAMINAL EPIDURAL STEROID INJ/ELFOLLOW UP AFTER RIGHT LTRf/u increase in pain right hip into legL5-S1 EPIDURAL STEROID INJ/ELfollow up after LES Care Teams (unrecognized sec tion and content) Team Status: Active Member Role Status Dates FABIENNE Anderson Primary Care Provider Activ jeimy Team Status: Inactive Member Role Status Dates FABIENNE Anderson Primary Care Provider Activ e Ap Holland MD Attending Provider Active Goals (unrecognized [...] BE BASED ON THE PRIMARY CLINICAL RECORDS. [employer] provides no warranty or guarantee of the accuracy or completeness of information in this document.
== END 2023-10-25 10:55 | disposition home or self-care (01) ==
LOC: EC 10:54
PROVIDERS: PCP Family Medicine; Visit Provider Orthopaedic Surgery
DX: S72.001D Fracture of unspecified part of neck of right femur, subsequent encounter for closed fracture with routine healing (principal)
CPT/HCPCS: 73502

== ENCOUNTER 2024-04-03 14:37 | Outpatient (OUT) | payer MEDICARE, SELFPAY ==
--- NOTE | 2024-04-03 15:41 | PM.CN ---
Consult Note: HPI Data of Consult Patient: known to practice within the last 3 years Consult date: 04/03/24 Requesting Physician: Kulwant García MD Primary Care Provider: FERNIE LEONG Consult Narrative Reason for consult: low back, right leg pain Narrative: 78yof who presents for assessment. worsening pain and weakness into right lower extremity. imaging consistent with severe stenosis at l4-5 and l5-s1. previously had lumbar tfesi, which helped significantly, but then patient fell shortly thereafter and fractured right hip, which required surgical intervention. continues in a series of provider directed home exercises >6 weeks, without lasting benefit. uses tramadol as needed. denies adverse med side effects. cc:: CC: Kulwant García MD Review of Systems ROS Status of ROS 10 or more systems reviewed and unremarkable except as noted in history and below [facility] Medical History (Updated 04/03/24 @ 15:44 by Kulwant García MD) Essential (primary) hypertension ?I10 - Essential (primary) hypertension (ICD-10) Vertigo ?R42 - Dizziness and giddiness (ICD-10) Sinus arrhythmia seen on electrocardiogram ?I49.8 - Other specified cardiac arrhythmias (ICD-10) Hypothyroid ?E03.9 - Hypothyroidism, unspecified (ICD-10) Sacroiliac dysfunction ?M53.3 - Sacrococcygeal disorders, not elsewhere classified (ICD-10) Lumbar spondylosis ?M47.816 - Spondylosis without myelopathy or radiculopathy, lumbar region (ICD-10) Lumbar stenosis with neurogenic claudication ?M48.062 - Spinal stenosis, lumbar region with neurogenic claudication (ICD-10) DDD (degenerative disc disease), lumbar ?M51.36 - Other intervertebral disc degeneration, lumbar region (ICD-10) Low back pain ?M54.50 - Low back pain, unspecified (ICD-10) Irregular heartbeat ?I49.9 - Cardiac arrhythmia, unspecified (ICD-10) Acid reflux ?K21.9 - Gastro-esophageal reflux disease without esophagitis (ICD-10) Rheumatoid arthritis ?M06.9 - Rheumatoid arthritis, unspecified (ICD-10) Osteoarthritis ?M19.90 - Unspecified osteoarthritis, unspecified site (ICD-10) Hearing deficit ?H91.90 - Unspecified hearing loss, unspecified ear (ICD-10) Hypertension ?I10 - Essential (primary) hypertension (ICD-10) High cholesterol ?E78.00 - Pure hypercholesterolemia, unspecified (ICD-10) Family History Father Family history of hypertension Family history of stroke Mother Family history of hypertension Family history of myocardial infarction, Onset Age: 45 Social History Within the past year, how often did you have a drink containing alcohol: monthly or less Within the past year, how often did you have six or more drinks on one occasion: never Smoking status: Never smoker Non-prescribed substance use: denies use 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 Known occupational exposures/hazards: No Highest level of school completed/degree received: Master's degree Are you now , , , , never or living with a partner: In a typical week, how many times do you talk on the telephone with family, friends, or neighbors: twice per week How often do you get together with friends or relatives: twice per week How often do you attend congregation or zoroastrian services: 4 or more times per year Little interest or pleasure in doing things: not at all Feeling down, depressed, or hopeless: not at all Feel stressed/tense/nervous/anxious/difficulty sleeping: only a little Life stressor details: medical issues Gender Identity: female Meds Home Medications and Allergies Home Medications ?Medication ?Instructions ?Recorded ?Confirmed ?Type atorvastatin 10 mg tablet 10 mg PO DAILY 07/29/23 10/07/23 History levothyroxine 75 mcg tablet 75 mcg PO DAILY 07/29/23 10/07/23 History metoprolol succinate 25 mg 25 mg PO DAILY 07/29/23 10/07/23 History tablet,extended release 24 hr omeprazole 40 mg capsule,delayed 40 mg PO DAILY 07/29/23 10/07/23 History release acetaminophen 500 mg tablet 1,000 mg PO Q6H PRN pain 09/13/23 10/07/23 History (Tylenol Extra Strength) meclizine 25 mg tablet 25 mg PO BID 09/13/23 10/07/23 History fluticasone propionate 50 2 spray intranasal QD #16 grams 10/12/23 Rx mcg/actuation nasal spray,suspension hydrocodone 5 mg-acetaminophen 325 1 tab PO Q4H PRN Pain Scale 4-6 10/12/23 Rx mg tablet #20 tabs hydrocodone 5 mg-acetaminophen 325 2 tab PO Q4H PRN Pain Scale 7-10 10/12/23 Rx mg tablet #20 tabs meclizine 25 mg tablet 25 mg PO TID PRN dizziness #30 tabs 10/12/23 Rx Allergies Allergy/AdvReac Type Severity Reaction Status Date / Time No Known Drug Allergies Allergy Verified 09/27/23 09:00 Exam Narrative Exam Narrative: Psych-alert and oriented x 3. Attentive and appropriate, constitutionally normal, displays normal mood and affect per situation. There are no obvious deficits in memory, reasoning, or intellect.? Skin-no obvious rashes, bruising, erythema noted to the patient's area of pain.? Extremities- extremities are warm with minimal edema and palpable pulses. Lumbar-tenderness to palpation noted in the lumbar spine and paraspinal musculature. Pain is elicited with flexion, extension, and lateral rotation of the lumbar spine. Range of motion is diminished with these motions. Facet loading maneuvers are positive. Strength-noted to be unremarkable with the exception of decreased strength rated at 4 out of 5 in right quadriceps femoris, anterior tibialis. Sensory-no notable sensory deficits in the bilateral lower extremities to touch or pinprick in all dermatomal distributions with the exception to decreased sensation to the right L4, 5 dermatomal distribution Sacroiliac - tender to palpation over right PSIS. Positive Tre's on the right. Positive thigh thrust on the right. Coordination remains intact.? Gait remains non-antalgic. Assessment and Plan Assessment and Plan (1) Sacroiliac joint dysfunction of right side: (2) Lumbar stenosis with neurogenic claudication: Plan 78yof who presents for assessment. failed conservative measures, as noted. imaging reviewed, as noted. given symptoms and imaging, prudent to attempt right l4-5, l5-s1 tfesi under fluoroscopic guidance. may even benefit from right sij injection. she is in agreement. meds reviewed, no changes. follow up after procedure.
== END 2024-04-03 14:38 | disposition home or self-care (01) ==
LOC: PM 14:37
PROVIDERS: PCP Family Medicine; Visit Provider Anesthesiology
DX: M53.3 Sacrococcygeal disorders, not elsewhere classified (principal); M48.062 Spinal stenosis, lumbar region with neurogenic claudication
CPT/HCPCS: G0463

== ENCOUNTER 2024-04-17 09:12 | Day surgery (SDC) | payer MEDICARE, SELFPAY ==
--- OUTSIDE RECORDS SUMMARY | 2024-04-17 09:36 | XMS_ITS | CCD ---
Author Organization [facility] ion Partnership [facility] Care Team Providers Care Childcare Teacher Name Role Phone Ap Holland Unavailable FABIENNE Briscoe Primary Care Provider MD Ap Holland Attending Provider [phone] Ricky AVALOS, Kulwant Cross Attending Unavailable Ricky AVALOS, Kulwant Cross Attending Unavailable Charles Hendricks Admitting Unavailable Charles Hendricks Attending Unavailable Roslyn Briscoe Primary Care Unavailable Ap Holland Admitting Unavailable Ap Holland Attending Unavailable Roslyn Briscoe Primary Care Unavailable ANJALI MAK Attending Unavailable ANJALI MAK Attending Unavailable ROSLYN BRISCOE Attending Unavailab ROSLYN Wei Attending Unavailab FERNIE López Attending Unavailable FERNIE LEONG Referring Unavailable FERNIE LEONG Attending Unavailable ROSLYN BRISCOE Attending Unavailab QIAN Fernández Attending Unavailable FERNIE LEONG Attending Unavailable JESUS PARSON Attending Unavailable QIAN CLARK Referring Unavailable BLANKA XIE Attending Unavailable FERNIE LEONG Referring Unavailable NONI LANE Attending Unavailable QIAN CLARK Referring Unavailable BLANKA XIE Attending Unavailable FERNIE LEONG Referring Unavailable ROSLYN BRISCOE Attending Unavailab ROSLYN Wei Referring Unavailab PIERRE Macario Attending Unavailab ROSLYN Wei Attending Unavailab le Allergies Allergy Classification Reported Allergen(s) Allergy Type Date of Onset Reaction(s) Facility (7 sources) Pollen Drug allergy Unknown [facility] Other (1 source) Pollen Drug allergy (disorder) 05-18-2023 [facility] Medications Current Medications Medication Drug Class(es) [...] Name Value Interpretation Reference Range Facil ity VASC US CAROTID ARTERY DUPLE X BILATERALon 11-17-2023 VASC US CAROTID ARTERY DUPLEX BILATERAL EXAM: VASC US CAROTID ARTERY DUPLEX BILATERAL DATE:11/17/2023 10:02 AM CLINICAL HISTORY: dizziness COMPARISON: None available. TECHNIQUE: Grayscale, color and waveform Doppler analysis of the cervical carotid and vertebral arteries was performed. Optimization of duplex velocity criteria for diagnosis of internal carotid artery (ICA) stenosis: A report of the Intersocietal Accreditation Commission (IAC) Vascular Testing Division Carotid Diagnostic Criteria Committee. Vascular Medicine 2020; https://journals.diandra pub.com/doi/full/10.1 177/8389564A287418950 FINDINGS: RIGHT ICA 84. Ratio 1.6 LEFT ICA 93. Ratio 1.7 Moderate bilateral carotid bulb internal and external carotid shadowing, not ulcerative and non-shadowing plaque, greatest involvement right proximal external carotid artery. No significant stenosis based on peak velocity values or visual appearance. Both vertebral arteries have normal cephalad direction flow IMPRESSION: Estimated stenosis: RIGHT: Mild to moderate, not hemodynamically significant LEFT: Mild, not hemodynamically significant Stenosis PSV EDV ICA/CCA Ratio <50% <180 cm/s <40 <2 50-69% 180-230 cm/s 40-100 2-4 > 70%, but less than near occlusion >230 cm/s >100 >4 TRANSCRIBED BY: ELECTRONICALLY SIGNED BY: Bonilla Mckeon MD Normal Not Available William 10-08-2023 L Specimen: [id number] Received: 10/11/23 Status: MAURI Ga Num: [id number] Spec Type: Surgical Subm Dr: Charles Hendricks Tissues: A Femoral Head - Fracture (RT HIP) Procedures: HE/2, Gross/Micro L4, Decalcification Age/ Patient Sex Location Account Attending Physician Yvonne Mccarthy 77/F [facility] [id number] Charles Hendricks SPEC NUM: [id number] RECD: 10/11/23 STATUS: MAURI GA NUM: [id number] JAVI: 10/08/23 SUBM : Charles Hendricks ENTERED: 10/11/[address]: Amarilys Velarde SPEC TYPE: Surgical DEPT: LUZ CASTELLANOS ORDERED: [...] cut surface of the femoral head is yellow-xiogn, trabecular with hemorrhage at the resection margin. The marrow of the femoral neck is xiong-red, trabecular. Manager Fire are submitted following decalcification in 2 cassettes as follows: A1 - Femoral head A2 - Reamings from femoral neck CPT Codes 83013, 83781 -------- -------- Specimen: [id number] Received: 10/11/23 Status: MAURI Ga Num: [id number] Spec Type: Surgical Subm Dr: Charles Hendricks Tissues: A Femoral Head - Fracture (RT HIP) Procedures: HE/2, Gross/Micro L4, Decalcification -------- Patient: ShariYvonne [id number] (Continued) -------- Signed (signature on file) Agatha Brantley MD 10/18/23 12[address] [facility] [address] HEAD WO IV CONTRASTon CT HEAD [...] XR hip RT min 2V(w/wo pelvis)* [facility] [place] [address] [place] [address] XRay Report Signed Patient: Yvonne Mccarthy MR#: [id number] 15 : 1945 Acct:[id number] Age/Sex: 77 / F ADM Date: 05/10/23 Loc: XD Room: Type: [facility] Attending Dr: Ap Holland MD Copies to: [...] Nick Stokes M.D.05/10/2023 3:23 PM Dictation Location: [place] [address] Transcribed By: [facility] 05/10/231522 Dictated By: Nick Stokes DO 05/10/231520 Signed By: 05/10/231522 [facility] XR Spine Lumbar Complete w/F maxi AND Andreas 12-10-2022 XR Spine Lumbar Complete w/Flex AND [...] by Roosevelt Motley on 12/10/2022 1457 Normal [facility] [employer] Operator XR Hip Complete Right*on XR Hip Complete Right* HISTORY: Posterior hip radiating pain falls x 2 years FINDINGS: Mild bilateral superior medial hip joint space loss. No pincer or CAM deformities. Prominent arterial calcifications. IMPRESSION: 1. 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 Report reported and signed by Bonilla Mckeon on 04/29/2022 1031 Normal [facility] Specialist Complete Blood Count with Au to Diffon 01-13-2022 Basophils (Bld) [#/Vol] 0.06 10*3/uL Normal 0.00-0.20 [facility] [employer] Operator Comment on above: Performed By: #### V ITD, CMP, TSH reflex FT4, CBCAD, FE Prof #### [facility] [address], [place] [id number] Basophils/100 WBC (Bld) 1.3 % Normal [facility] [employer] Operator Comment on above: Performed By: #### V ITD, CMP, TSH reflex FT4, CBCAD, FE Prof #### [facility] [address], [place] [id number] Eosinophils (Bld) [#/Vol] 0.36 10*3/uL Normal 0.02-0.50 [facility] [employer] Operator Comment on above: Performed By: #### V ITD, CMP, TSH reflex FT4, CBCAD, FE Prof #### [facility] [address], [place] [id number] Eosinophils/100 WBC (Bld) 7.6 % Normal [facility] [employer] Operator Comment on above: Performed By: #### V ITD, CMP, TSH reflex FT4, CBCAD, FE Prof #### [facility] [address], [place] [id number] Erythrocyte distribution width (RBC) [Ratio] 12.1 % Normal 11.0-15.0 [facility] [employer] Operator Comment on above: Performed By: #### V ITD, CMP, TSH reflex FT4, CBCAD, FE Prof #### [facility] [address], [place] [id number] Hematocrit (Bld) [Volume fraction] 34.0 % Low 35.0-47.0 [facility] [employer] Operator Comment on above: Performed By: #### V ITD, CMP, TSH reflex FT4, CBCAD, FE Prof #### [facility] [address], [place] [id number] Hemoglobin (Bld) [Mass/Vol] 11.9 g/dL Normal 11.6-15.5 [facility] [employer] Operator Comment on above: Performed By: #### V ITD, CMP, TSH reflex FT4, CBCAD, FE Prof #### [facility] [address], [place] [id number] Lymphocytes (Bld) [#/Vol] 1.2 10*3/uL Normal 0.9-3.9 [place] [employer] Comment on above: Performed By: #### V ITD, CMP, TSH reflex FT4, CBCAD, FE Prof #### [facility] [address], [place] [id number] Lymphocytes/100 WBC (Bld) 26.1 % Normal [facility] Special[facility] Comment on above: Performed By: #### V ITD, CMP, TSH reflex FT4, CBCAD, FE Prof #### [facility] [address], [place] [id number] MCH (RBC) [Entitic mass] 34.0 pg High 27.0-33.0 [facility] Comment on above: Performed By: #### V ITD, CMP, TSH reflex FT4, CBCAD, FE Prof #### [facility] [address], [place] [id number] MCHC (RBC) [Mass/Vol] 35.0 g/dL Normal 32.0-36.0 [facility] Comment on above: Performed By: #### V ITD, CMP, TSH reflex FT4, CBCAD, FE Prof #### [facility] [address], [place] [id number] MCV (RBC) [Entitic vol] 97 fL Normal 80-100 [facility] Comment on above: Performed By: #### V ITD, CMP, TSH reflex FT4, CBCAD, FE Prof #### [facility] [address], [place] [id number] Monocytes (Bld) [#/Vol] 0.4 10*3/uL Normal 0.2-0.9 [facility] Comment on above: Performed By: #### V ITD, CMP, TSH reflex FT4, CBCAD, FE Prof #### [facility] [address], [place] [id number] Monocytes/100 WBC (Bld) 8.9 % Normal [facility] Comment on above: Performed By: #### V ITD, CMP, TSH reflex FT4, CBCAD, FE Prof #### [facility] [address], [place] [id number] Neutrophils (Bld) [#/Vol] 2.6 10*3/uL Normal 1.5-7.8 [place] [employer] Comment on above: Performed By: #### V ITD, CMP, TSH reflex FT4, CBCAD, FE Prof #### [facility] [address], [place] [id number] Neutrophils/100 WBC (Bld) 55.9 % Normal [facility] Comment on above: Performed By: #### V ITD, CMP, TSH reflex FT4, CBCAD, FE Prof #### [facility] [address], [place] [id number] Platelet mean volume (Bld) [Entitic vol] 11.00 fL Normal 7.50-12.50 [facility] Comment on above: Performed By: #### V ITD, CMP, TSH reflex FT4, CBCAD, FE Prof #### [facility] [address], [place] [id number] Platelets (Bld) [#/Vol] 102 10*3/uL Low 140-400 [facility] Comment on above: Performed By: #### V ITD, CMP, TSH reflex FT4, CBCAD, FE Prof #### [facility] [address], [place] [id number] RBC (Bld) [#/Vol] 3.50 10*6/uL Low 3.90-5.20 [facility] Comment on above: Performed By: #### V ITD, CMP, TSH reflex FT4, CBCAD, FE Prof #### [facility] [address], [place] [id number] RDW-SD 42.1 fL Normal 37.0-50.0 [facility] Comment on above: Performed By: #### V ITD, CMP, TSH reflex FT4, CBCAD, FE Prof #### [facility] [address], [place] [id number] WBC (Bld) [#/Vol] 4.7 10*3/uL Normal 3.8-11.0 [facility] Comment on above: Performed By: #### V ITD, CMP, TSH reflex FT4, CBCAD, FE Prof #### [facility] [address], [place] [id number] Comprehensive Metabolic [facility] 01-13-2022 Albumin [Mass/Vol] 4.2 g/dL Normal 3.6-5.1 [facility] Comment on above: Performed By: #### V ITD, CMP, TSH reflex FT4, CBCAD, FE Prof #### [facility] [address], [place] [id number] Albumin/Globulin [Mass ratio] 1.8 {ratio} Normal 1.0-2.5 [facility] Comment on above: Performed By: #### V ITD, CMP, TSH reflex FT4, CBCAD, FE Prof #### [facility] [address], [place] [id number] ALP [Catalytic activity/Vol] 83 U/L Normal 35-119 [facility] Comment on above: Performed By: #### V ITD, CMP, TSH reflex FT4, CBCAD, FE Prof #### [facility] [address], [place] [id number] ALT [Catalytic activity/Vol] 28 U/L Normal 6-33 [facility] Comment on above: Result Comment: 07/09 Female reference range changed. Performed By: #### V ITD, CMP, TSH reflex FT4, CBCAD, FE Prof #### [facility] [address], [place] [id number] Anion gap [Moles/Vol] 12 mmol/L Normal 12-20 [facility] Comment on above: Result Comment: Effe ctive 08/14/2019 reference range changed. Performed By: #### V ITD, CMP, TSH reflex FT4, CBCAD, FE Prof #### [facility] [address], [place] [id number] AST [Catalytic activity/Vol] 36 U/L High 9-34 [facility] Comment on above: Performed By: #### V ITD, CMP, TSH reflex FT4, CBCAD, FE Prof #### [facility] [address], [place] [id number] Bilirubin [Mass/Vol] 0.48 mg/dL Normal 0.30-1.20 [facility] Comment on above: Performed By: #### V ITD, CMP, TSH reflex FT4, CBCAD, FE Prof #### [facility] [address], [place] [id number] BUN/CREA 19 Ratio Normal 6-22 [facility] Comment on above: Performed By: #### V ITD, CMP, TSH reflex FT4, CBCAD, FE Prof #### [facility] [address], [place] [id number] Calcium [Mass/Vol] 9.5 mg/dL Normal 8.6-10.2 [facility] Comment on above: Performed By: #### V ITD, CMP, TSH reflex FT4, CBCAD, FE Prof #### [facility] [address], [place] [id number] Chloride [Moles/Vol] 105 mmol/L Normal 98-107 [facility] Comment on above: Performed By: #### V ITD, CMP, TSH reflex FT4, CBCAD, FE Prof #### [facility] [address], [place] [id number] CO2 [Moles/Vol] 27 mmol/L Normal 20-31 [facility] Comment on above: Performed By: #### V ITD, CMP, TSH reflex FT4, CBCAD, FE Prof #### [facility] [address], [place] [id number] Creatinine [Mass/Vol] 1.0 mg/dL Normal 0.6-1.4 [facility] Comment on above: Performed By: #### V ITD, CMP, TSH reflex FT4, CBCAD, FE Prof #### [facility] [address], [place] [id number] eGFRAA 67 mL/min/1.73m2 Normal >60 [facility] Comment on above: Performed By: #### V ITD, CMP, TSH reflex FT4, CBCAD, FE Prof #### [facility] [address], [place] [id number] eGFRNAA 55 mL/min/1.73m2 Low >60 [facility] Comment on above: Performed By: #### V ITD, CMP, TSH reflex FT4, CBCAD, FE Prof #### [facility] [address], [place] [id number] Globulin (S) [Mass/Vol] 2.3 g/dL Normal 1.9-3.7 [facility] Comment on above: Performed By: #### V ITD, CMP, TSH reflex FT4, CBCAD, FE Prof #### [facility] [address], [place] [id number] Glucose [Mass/Vol] 85 mg/dL Normal 65-99 [place] [facility] [place] [employer] Comment on above: Result Comment: For FASTING Glucose --- ADA reference ranges: Normal 65-99 mg/dl Prediabetes 100-125 Diabetes >/= 126 Performed By: #### V ITD, CMP, TSH reflex FT4, CBCAD, FE Prof #### [facility] [address], [place] [id number] Potassium [Moles/Vol] 3.8 mmol/L Normal 3.5-5.5 [facility] [employer] Operator Comment on above: Performed By: #### V ITD, CMP, TSH reflex FT4, CBCAD, FE Prof #### [facility] [address], [place] [id number] Protein [Mass/Vol] 6.5 g/dL Normal 6.1-8.1 [place] [facility] [place] [employer] Comment on above: Performed By: #### V ITD, CMP, TSH reflex FT4, CBCAD, FE Prof #### [facility] [address], [place] [id number] Sodium [Moles/Vol] 140 mmol/L Normal 135-146 [facility] [employer] Machine Operator Comment on above: Performed By: #### V ITD, CMP, TSH reflex FT4, CBCAD, FE Prof #### [facility] [address], [place] [id number] Urea nitrogen [Mass/Vol] 19 mg/dL Normal 7-25 [facility] [employer] Operator Comment on above: Performed By: #### V ITD, CMP, TSH reflex FT4, CBCAD, FE Prof #### [facility] [address], [place] [id number] Iron Profileon 01-13-2022 %FESAT 45 % Normal 11-50 [facility] [employer] Comment on above: Performed By: #### V ITD, CMP, TSH reflex FT4, CBCAD, FE Prof #### [facility] [address], [place] [id number] FE 129 ug/dL Normal 40-190 [place] [employer] Comment on above: Result Comment: Refe rence range change 06/25/2017. Prior reference range F 37-145 ug/dL, M 59-158 ug/dL. Performed By: #### V ITD, CMP, TSH reflex FT4, CBCAD, FE Prof #### [facility] [address], [place] [id number] TIBC 284 ug/dL Normal 250-450 [facility] Comment on above: Performed By: #### V ITD, CMP, TSH reflex FT4, CBCAD, FE Prof #### [facility] [address], [place] [id number] UIBC 155 ug/dL Normal 112-347 [facility] Comment on above: Performed By: #### V ITD, CMP, TSH reflex FT4, CBCAD, FE Prof #### [facility] [address], [place] [id number] TSH w/ Reflex to Free T4on 0 01-13-2022 TSH 3.100 uIU/mL Normal 0.400-4.500 [facility] [employer] Comment on above: Performed By: #### V ITD, CMP, TSH reflex FT4, CBCAD, FE Prof #### [facility] [address], [place] [id number] US Venous, Bilateral, Lower Andreas 01-13-2022 US Venous, Bilateral, Lower Ext HISTORY: [...] by Bonilla Mckeon on 01/13/2022 1441 Normal [facility] Vitamin B12/Folateon 022 Cobalamin (Vitamin B12) [Mass/Vol] 258 pg/mL Normal 211-946 [facility] Comment on above: Performed By: #### B 12/Fol #### [facility] [address], [place] [id number] FOL 11.6 ng/mL Normal >4.7 [facility] [employer] Operator Comment on above: Result Comment: Refe miguel range change 06/25/2017. Prior reference range F 4.8-37.3 ng/mL, M 4.5-32.2 ng/mL. Performed By: #### B 12/Fol #### [facility] [address], [place] [id number] Vitamin D 25-OHon 01-13-2022 VIT D 25 OH 30 ng/ml Normal >29 [facility] [employer] Operator Comment on above: Result Comment: Ching min D Status Deficiency <20 ng/mL Insufficiency 20-29 ng/mL Optimal 30-100 ng/mL Possible Toxicity >=150 ng/mL Performed By: #### V ITD, CMP, TSH reflex FT4, CBCAD, FE Prof #### [facility] [address], [place] [id number] Vital Signs Date Time Vital Sign Value Performing Clinician Facility 05-10-2023 10:45-0400 Body height 162.56 cm Ap Holland Other [facility] [employer] Other 05-10-2023 10:45-0400 Body mass index (BMI) [Ratio] 25.4 kg/m2 Ap Holland Other [facility] Other 05-10-2023 10:45-0400 Body weight 67.13 kg Ap Holland Other [facility] Other 05-10-2023 10:45-0400 Diastolic blood pressure 80 mm[Hg] Ap Holland Other [facility] Other 05-10-2023 10:45-0400 Systolic blood pressure 122 mm[Hg] Ap Holland Other [facility] Other 04-06-2023 11:15-0400 Body height 162.56 cm Ap Holland Other [facility] Other 04-06-2023 11:15-0400 Body mass index (BMI) [Ratio] 26.09 kg/m2 Ap Skyler Other [facility] Other 04-06-2023 11:15-0400 Body weight 68.95 kg Ap Skyler Other [facility] Other 04-06-2023 11:15-0400 Diastolic blood pressure 84 mm[Hg] Ap Skyler Other [facility] Other 04-06-2023 11:15-0400 Systolic blood pressure 124 mm[Hg] Ap Skyler Other [facility] Other 03-23-2023 11:30-0400 Body height 162.56 cm Ap Skyler Other [facility] Other 03-23-2023 11:30-0400 Body mass index (BMI) [Ratio] 26.09 kg/m2 Ap Skyler Other [facility] Other 03-23-2023 11:30-0400 Body weight 68.95 kg Ap Skyler Other [facility] Other 03-23-2023 11:30-0400 Diastolic blood pressure 84 mm[Hg] Ap Skyler Other [facility] Other 03-23-2023 11:30-0400 Systolic blood pressure 140 mm[Hg] Ap Skyler Other [facility] Other 03-08-2023 09:00-0400 Body height 162.56 cm Ap Skyler Other [facility] Other 03-08-2023 09:00-0400 Body mass index (BMI) [Ratio] 26.74 kg/m2 Ap Holland Other [facility] [employer] Other 03-08-2023 09:00-0400 Body weight 70.67 kg Ap Holland Other [facility] Other 03-08-2023 09:00-0400 Diastolic blood pressure 80 mm[Hg] Ap Holland Other [facility] Other 03-08-2023 09:00-0400 SaO2% (BldA) [Mass fraction] 99 % Ap Holland Other [facility] Other 03-08-2023 09:00-0400 Systolic blood pressure 130 mm[Hg] Ap Holland Other [facility] Other Encounters Encounter Date Encounter Type Care Provider Facility Start: 03-21-2024 End: 03-21-2024 ambulatory BLANKA XIE Not Available Start: 03-14-2024 End: 03-14-[address] Not Available Start: 03-14-2024 End: 03-14-2024 ambulatory BLANKA XIE Not Available Start: 03-13-2024 End: 03-13-2024 ambulatory JESUS PARSON Not Available Start: 03-10-2024 End: 03-10-2024 ambulatory FERNIE LEONG Not Available Start: 02-17-2024 End: 02-17-2024 ambulatory ANJALI APLING Not Available Start: 01-18-2024 End: 01-18-2024 ambulatory ANJALI APLING Not Available Start: 01-04-2024 End: 01-04-2024 ambulatory QIAN CLARK Not Available Start: 12-21-2023 End: 12-21-2023 ambulatory ANJALI APLING Not Available Start: 11-25-2023 End: 11-25-2023 ambulatory FERNIE LEONG Not Available Start: 11-17-2023 End: 11-17-2023 ambulatory FERNIE LEONG Not Available Start: 11-16-2023 End: 11-16-2023 ambulatory FERNIE LEONG Not Available Start: 10-08-2023 End: 10-08-2023 ambulatory Charles Hendricks Facility:[facility] Start: 09-27-2023 End: 09-28-2023 ambulatory Kulwant García MD [facility] Start: 09-13-2023 End: 09-14-2023 ambulatory Kulwant García MD [facility] Start: 09-02-2023 End: 09-02-2023 ambulatory ROSLYN A HACKENBURG Not Available Start: 09-01-2023 End: 09-01-2023 ambulatory ANJALI B APLING Not Available Start: 08-18-2023 End: 08-18-2023 ambulatory ANJALI B APLING Not Available Start: 08-03-2023 End: 08-03-2023 ambulatory ROSLYN A [place]G Not Available Start: 07-28-2023 End: 07-28-2023 ambulatory PIERRE Brooklynn PAULINO Not Available Start: 07-20-2023 End: 07-20-2023 ambulatory ROSLYN A [place] Not Available Start: 07-08-2023 End: 07-08-2023 ambulatory ROSLYN A [place] Not Available Start: 06-29-2023 End: 06-29-2023 ambulatory ROSLYN A H[place]G Not Available Start: 05-10-2023 Office outpatient vi sit 25 minutes Ap Holland [facility] Start: 05-10-2023 End: 05-10-2023 ambulatory Ap Holland Facility:[facility] Start: 05-10-2023 End: 05-10-2023 ambulatory HEARSE DRIVER-C Roslyn Hackenburg Work Phone: [facility] Work Phone: Start: 05-10-2023 End: 05-10-2023 Patient encounter procedure HEARSE DRIVER-C Roslyn Hackenburg Work Phone: [facility] Work Phone: Start: 04-29-2023 (PROC) PROCEDURE Ap Hart [facility] Start: 04-29-2023 End: 04-29-2023 ambulatory Apkalin Holland Other [facility] Other Start: 04-06-2023 End: 04-06-2023 ambulatory Ap Skyler Other [facility] Other Start: 04-06-2023 Office outpatient vi sit 25 minutes Ap Skyler [facility] Start: 03-23-2023 End: 03-23-2023 ambulatory Ap Skyler Other [facility] Other Start: 03-23-2023 Office outpatient vi sit 15 minutes Ap Skyler [facility] Start: 03-16-2023 (PROC) PROCEDURE Ap Hart [facility] Start: 03-16-2023 End: 03-16-2023 ambulatory Apkalin Holland Other [facility] Other Start: 03-09-2023 End: 03-09-2023 ambulatory Apkalin Holland Other [facility] Other Start: 03-09-2023 Telephone encounter Ap Skyler [facility] Start: 03-08-2023 End: 03-08-2023 ambulatory Ap Skyler Other [facility] Other Start: 03-08-2023 Office consultation new/estab patient 60 min Ap Skyler [facility] Procedures Date Procedure Procedure Detail Performing Clinician Start: 05-10-2023 Plain X-ray of right hip HEARSE DRIVER-C Roslyn Briscoe Work Phone: Payers Date Payer Category Payer Private Health Insurance 2023 Self-pay 2021 Medicare [id number] 2. [id number] 1945 Unknown [id number] 2.16. [id number] 1945 Unknown [id number] 2.16. 840.1.867877.3.579.2.196 1945 Unknown [id number] 2.16.84 0.1.759876.3.579.2.1258 1945 Unknown [id number] 2.16.84 0.1.574031.3.579.2.1258 1945 Unknown [id number] 2.16.84 0.1.059070.3.579.2.1258 1943 Unknown [id number] 2.16.84 0.1.262054.3.579.2.1258 1943 Unknown [id number] 2.16.84 0.1.455094.3.579.2.1258 1945 Unknown [id number] 2.16.84 0.1.908174.3.579.2.1258 1943 Unknown [id number] 2.16.84 0.1.358362.3.579.2.1258 1943 Unknown [id number] 2.16.84 0.1.114794.3.579.2.1258 1943 Unknown [id number] 2.16.84 0.1.038026.3.579.2.1258 1943 Unknown [id number] 2.16.84 0.1.854752.3.579.2.1258 1943 Unknown [id number] 2.16.84 0.1.228012.3.579.2.1258 1943 Unknown [id number] 2.16.84 0.1.640621.3.579.2.1258 1943 Unknown [id number] 2.16.84 0.1.805909.3.579.2.1258 1943 Unknown [id number] 2.16.84 0.1.455324.3.579.2.1258 1943 Unknown [id number] 2.16.84 0.1.575691.3.579.2.1258 1943 Unknown [id number] 2.16.840 .1.661804.3.579.2.1258 1943 Unknown [id number] 2.16.840 .1.605204.3.579.2.1258 1943 Unknown [id number] 2.16.840 .1.947182.3.579.2.1258 1943 Unknown [id number] 1945 Unknown [id number] 1945 Unknown [id number] [id number] Medicare [id number] 2.1 [id number] Unknown [id number] 2.16.8 [id number] Unknown [id number] 2.16.8 [id number] Social History Date Type Detail Facility Sex Assigned At [employer] Other Start: 1945 Sex Assigned At Female [facility] Evaluation note 05-10-2023 Note Date & Type [...] up in 1 week for further evaluation. [employer] Other Evaluation note 04-06-2023 Note Date & [...] (ICD-10 - G89.29) Proceed with treatment plan. [employer] Other Evaluation note 03-23-2023 Note Date & [...] (ICD-10 - G89.29) Follow up as needed [employer] Other Evaluation note 03-08-2023 Note Date & [...] negative findings were considered in medical decision-making. [employer] Other Evaluation note Note Date & Type Note Facility Evaluation note No Information [employer] Other Evaluation note Note Date & Type Note Facility Evaluation note No assessment information [facility] Work Phone: History general Narrative - Reported Note Date & Type Note Facility History general Narrative - Reported Type Medical History hypercholestolemia Medical History stenosis [employer] [facility] [employer] Other Summary Purpose Family History No Family [...] section and content) DATE CREATED AUTHOR 12/11/2022 [facility] dical Specialist DATE CREATED AUTHOR AUTHOR'S ORGANIZ ATION 10/08/2023 [facility] DATE CREATED AUTHOR AUTHOR'S ORGANIZ ATION 10/19/2023 [facility] DATE CREATED AUTHOR AUTHOR'S ORGANIZ ATION 03/22/2024 [facility] dical Specialists EPIC REASON FOR VISIT (unrecogniz ed section and content) Referred by Roslyn [facility] urg for Lumbar spine stenosis and arthritis; MRI done NOMSNo InformationRIGHT L4,5 TRANSFORAMINAL EPIDURAL STEROID INJ/ELFOLLOW UP AFTER RIGHT LTRf/u increase in pain right hip into legL5-S1 EPIDURAL STEROID INJ/ELfollow up after LES Care Teams (unrecognized sec tion and content) Team Status: Active Member Role Status Dates FABIENNE Anderson Primary Care Provider Activ e Team Status: Inactive Member Role Status Dates [...] BE BASED ON THE PRIMARY CLINICAL RECORDS. [employer] [facility]. provides no warranty or guarantee of the accuracy or completeness of information in this document.
[2024-04-17 10:02] VITALS: BP 166/96; PULSE 74; TEMP 36.3; O2SAT 99
[2024-04-17 10:36] VITALS: BP 152/93; BP 165/95; PULSE 68; PULSE 69; O2SAT 95; O2SAT 97
--- NOTE | 2024-04-17 10:40 | P.ON_ITS ---
Date of procedure: 04/17/24 Pre-op diagnosis: Pain due to lumbar stenosis with neurogenic claudication Post-op diagnosis: same as pre-op Procedure: Procedure: Right L4-5, L5-S1 transforaminal epidural steroid injection Medications: Bupivacaine 0.25% 2cc, lidocaine 2% 1cc, kenalog 80mg The patient was seen and examined in the preoperative holding area.? Informed consent was obtained and placed on the chart.? Patient was brought to the medical procedure unit and placed in the prone position where a timeout was completed verifying the correct patient, procedure site, position, and planned special equipment using sterile aseptic technique.? Under direct fluoroscopic visualization a 25-gauge Quincke tipped spinal needle was advanced to the designated neural foramen where contrast dye was injected to show adequate spread.? The needle was inserted at level right L4-5. There was no evidence of vascular or adverse uptake.? Epidural spread was appreciated.? The above- mentioned injectate was then placed in a 1.5 mL aliquot preceded by negative aspiration.? The needle was removed. The needle was inserted and the procedure repeated at level right L5-S1.? The surgery site was covered.? Patient was taken to the postprocedural recovery area and monitored for an appropriate length of time before found suitable for discharge in the accompaniment of a responsible adult. Anesthesia: Local Surgeon: Kulwant García Pathology: none sent Condition: stable Disposition: no change
[2024-04-17] MEDS: BUPIVACAINE HCL 0.25% PF 25 MG/10 ML VIAL INJ (10:42)
[2024-04-17] MEDS: IOHEXOL 240 MG/ML - 10 ML VIAL 12 MG INJ (10:42)
[2024-04-17] MEDS: 0.9 % SODIUM CHLORIDE 10 ML SYRINGE - SALINE FLUSH INJ (10:42)
[2024-04-17] MEDS: LIDOCAINE HCL 2% 400 MG/20 ML MDV 2.5 ML INJ (10:42)
[2024-04-17] MEDS: TRIAMCINOLONE ACETONIDE 40 MG/ML VIAL 80 MG INJ (10:43)
== END 2024-04-17 11:20 | disposition home or self-care (01) ==
LOC: SURGOUT 09:14
PROVIDERS: PCP Family Medicine; Visit Provider Anesthesiology
DX: M48.062 Spinal stenosis, lumbar region with neurogenic claudication (principal)
CPT/HCPCS: 64483; 64484; J0665; J3301; Q9966

== ENCOUNTER 2024-05-03 09:29 | Outpatient (OUT) | payer MEDICARE, SELFPAY ==
--- OUTSIDE RECORDS SUMMARY | 2024-05-03 09:36 | XMS_ITS | CCD ---
Author Organization [facility] Inform ion [facility] Care Team Providers Care Field Clerk Name Role Phone Ap Holland Unavailable FABIENNE Briscoe Primary Care Provider MD Ap Holland Attending Provider Charles Hendricks Admitting Unavailable Charles Hendricks Attending Unavailable Roslyn Briscoe Primary Care Unavailable Ap Holland Admitting Unavailable Ap Holland Attending Unavailable Roslyn Briscoe Primary Care Unavailable ANJALI MAK Attending Unavailable ANJALI MAK Attending Unavailable ROSLYN BRISCOE Attending Unavailab ROSLYN eWi Attending Unavailab FERNIE López Attending Unavailable FERNIE [...] Macario Attending Unavailab ROSLYN Wei Attending Unavailab sharan García MD, Kulwant Cross Attending Unavailable Ricky AVALOS, Kulwant Cross Attending Unavailable Ricky AVALOS, Kulwant Cross Attending Unavailable Ricky AVALOS, Kulwant Cross Attending Unavailable Allergies Allergy Classification Reported Allergen(s) Allergy Type Date of Onset Reaction(s) Facility (7 sources) Pollen Drug allergy Unknown [facility] Other (1 source) Pollen Drug allergy (disorder) 05-18-2023 [facility] Repository Medications Current Medications Medication Drug [...] Criteria Committee. Vascular Medicine 2020; https://journals.diandra pub.com/doi/full/10.1 177/8210679C924656122 FINDINGS: RIGHT ICA 84. Ratio 1.6 LEFT [...] Normal Not Available William 10-08-2023 L Specimen: [id number] Received: 10/11/23 Status: MAURI Ga Num: [id number] Spec Type: Surgical Subm Dr: Charles Hendricks Tissues: A Femoral Head - Fracture (RT HIP) Procedures: HE/2, Gross/Micro L4, Decalcification Age/ Patient Sex Location Account Attending Physician Yvonne Liz 77/F [place] [id number] Charles Hendricks SPEC NUM: [id number] RECD: 10/11/23 STATUS: [facility] NUM: [id number] JAVI: 10/08/[address]: Charles Hendricks ENTERED: 10/11/23 OT : Amarilys Velarde SPEC TYPE: Surgical DEPT: LUZ [...] of the femoral neck is xiong-red, trabecular. Legal Operations Manager are submitted following decalcification in 2 cassettes as follows: A1 - Femoral head A2 - Reamings from femoral neck CPT Codes 19938, 76748 -------- -------- Specimen: [id number] Received: 10/11/23 Status: MAURI Ga Num: [id number] Spec Type: Surgical Subm Dr: Charles Hendricks Tissues: A Femoral Head - Fracture (RT HIP) Procedures: HE/2, Gross/Micro L4, Decalcification -------- Patient: Yvonne Liz [id number] (Continued) -------- Signed (signature on file) Agatha Brantley MD 10/18/23 [address] [facility] [address] HEAD WO IV CONTRASTon CT [...] 05-10-2023 XR hip RT min 2V(w/wo pelvis)* [facility] [place] [address] [place] [address] XRay Report Signed Patient: Yvonne Liz MR#: [id number] 15 : 1945 Acct:[id number] Age/Sex: 77 / F ADM Date: 05/10/23 Loc: XD Room: Type: [facility] Attending Dr: Ap Holland MD Copies [...] Nick Stokes M.D.05/10/2023 3:23 PM Dictation Location: [place] [address] Transcribed By: [facility] 05/10/231522 Dictated By: Nick Stokes DO 05/10/231520 Signed By: 05/10/23 152 [facility] XR Spine Lumbar Complete w/F maxi AND Maxwell 12-10-2022 XR Spine Lumbar Complete w/Flex AND [...] by Roosevelt Motley on 12/10/2022 1457 Normal [facility] [employer] XR Hip Complete Right*on XR Hip Complete Right* HISTORY: Posterior hip radiating pain falls x 2 years FINDINGS: Mild bilateral superior medial hip joint space loss. No pincer or CAM deformities. Prominent arterial calcifications. IMPRESSION: 1. 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 Report reported and signed by Bonilla Mckeon on 04/29/2022 1031 Normal [facility] Special[facility] Complete Blood Count with Au to Diffon 01-13-2022 Basophils (Bld) [#/Vol] 0.06 10*3/uL Normal 0.00-0.20 [facility] Comment on above: Performed By: #### V ITD, CMP, TSH reflex FT4, CBCAD, FE Prof #### [facility] [address], [place] [id number] Basophils/100 WBC (Bld) 1.3 % Normal [facility] Comment on above: Performed By: #### V ITD, CMP, TSH reflex FT4, CBCAD, FE Prof #### [facility] [address], [place] [id number] Eosinophils (Bld) [#/Vol] 0.36 10*3/uL Normal 0.02-0.50 [facility] [employer] Comment on above: Performed By: #### V ITD, CMP, TSH reflex FT4, CBCAD, FE Prof #### [facility] [address], [place] [id number] Eosinophils/100 WBC (Bld) 7.6 % Normal [facility] Comment on above: Performed By: #### V ITD, CMP, TSH reflex FT4, CBCAD, FE Prof #### [facility] [address], [place] [id number] Erythrocyte distribution width (RBC) [Ratio] 12.1 % Normal 11.0-15.0 [facility] [employer] Super[employer] Comment on above: Performed By: #### V ITD, CMP, TSH reflex FT4, CBCAD, FE Prof #### [facility] [address], [place] [id number] Hematocrit (Bld) [Volume fraction] 34.0 % Low 35.0-47.0 [facility] [employer] Super[employer] Comment on above: Performed By: #### V ITD, CMP, TSH reflex FT4, CBCAD, FE Prof #### [facility] [address], [place] [id number] Hemoglobin (Bld) [Mass/Vol] 11.9 g/dL Normal 11.6-15.5 [facility] Comment on above: Performed By: #### V ITD, CMP, TSH reflex FT4, CBCAD, FE Prof #### [facility] [address], [place] [id number] Lymphocytes (Bld) [#/Vol] 1.2 10*3/uL Normal 0.9-3.9 [facility] Comment on above: Performed By: #### V ITD, CMP, TSH reflex FT4, CBCAD, FE Prof #### [facility] [address], [place] [id number] Lymphocytes/100 WBC (Bld) 26.1 % Normal [facility] Comment on above: Performed By: #### V ITD, CMP, TSH reflex FT4, CBCAD, FE Prof #### [facility] [address], [place] [id number] MCH (RBC) [Entitic mass] 34.0 pg High 27.0-33.0 [facility] Comment on above: Performed By: #### V ITD, CMP, TSH reflex FT4, CBCAD, FE Prof #### [facility] [address], [place] [id number] MCHC (RBC) [Mass/Vol] 35.0 g/dL Normal 32.0-36.0 [facility] Comment on above: Performed By: #### V ITD, CMP, TSH reflex FT4, CBCAD, FE Prof #### [facility] [address], [place] [id number] MCV (RBC) [Entitic vol] 97 fL Normal 80-100 [facility] Comment on above: Performed By: #### V ITD, CMP, TSH reflex FT4, CBCAD, FE Prof #### [facility] [address], [place] [id number] Monocytes (Bld) [#/Vol] 0.4 10*3/uL Normal 0.2-0.9 [facility] Comment on above: Performed By: #### V ITD, CMP, TSH reflex FT4, CBCAD, FE Prof #### [facility] [address], [place] [id number] Monocytes/100 WBC (Bld) 8.9 % Normal [facility] Comment on above: Performed By: #### V ITD, CMP, TSH reflex FT4, CBCAD, FE Prof #### [facility] [address], [place] [id number] Neutrophils (Bld) [#/Vol] 2.6 10*3/uL Normal 1.5-7.8 [facility] Comment on above: Performed By: #### V ITD, CMP, TSH reflex FT4, CBCAD, FE Prof #### [facility] [address], [place] [id number] Neutrophils/100 WBC (Bld) 55.9 % Normal [facility] Comment on above: Performed By: #### V ITD, CMP, TSH reflex FT4, CBCAD, FE Prof #### [facility] [address], [place] [id number] Platelet mean volume (Bld) [Entitic vol] 11.00 fL Normal 7.50-12.50 [facility] Comment on above: Performed By: #### V ITD, CMP, TSH reflex FT4, CBCAD, FE Prof #### [facility] [address], [place] [id number] Platelets (Bld) [#/Vol] 102 10*3/uL Low 140-400 [facility] Comment on above: Performed By: #### V ITD, CMP, TSH reflex FT4, CBCAD, FE Prof #### [facility] [address], [place] [id number] RBC (Bld) [#/Vol] 3.50 10*6/uL Low 3.90-5.20 [facility] Comment on above: Performed By: #### V ITD, CMP, TSH reflex FT4, CBCAD, FE Prof #### [facility] [address], [place] [id number] RDW-SD 42.1 fL Normal 37.0-50.0 [facility] Comment on above: Performed By: #### V ITD, CMP, TSH reflex FT4, CBCAD, FE Prof #### [facility] [address], [place] [id number] WBC (Bld) [#/Vol] 4.7 10*3/uL Normal 3.8-11.[address] [facility] Comment on above: Performed By: #### V ITD, CMP, TSH reflex FT4, CBCAD, FE Prof #### [facility] [address], [place] [id number] Comprehensive Metabolic [facility]ane [facility] 01-13-2022 Albumin [Mass/Vol] 4.2 g/dL Normal 3.6-5.[address] [facility] Comment on above: Performed By: #### V ITD, CMP, TSH reflex FT4, CBCAD, FE Prof #### [facility] [address], [place] [id number] Albumin/Globulin [Mass ratio] 1.8 {ratio} Normal 1.0-2.5 [facility] Comment on above: Performed By: #### V ITD, CMP, TSH reflex FT4, CBCAD, FE Prof #### [facility] [address], [place] [id number] ALP [Catalytic activity/Vol] 83 U/L Normal 35-119 [facility] Comment on above: Performed By: #### V ITD, CMP, TSH reflex FT4, CBCAD, FE Prof #### [facility] [address], [place] [id number] ALT [Catalytic activity/Vol] 28 U/L Normal 6-33 [facility] Comment on above: Result Comment: 07/09 Female reference range changed. Performed By: #### V ITD, CMP, TSH reflex FT4, CBCAD, FE Prof #### [facility] [address], [place] [id number] Anion gap [Moles/Vol] 12 mmol/L Normal 12-20 [facility] Comment on above: Result Comment: Effe ctive 08/14/2019 reference range changed. Performed By: #### V ITD, CMP, TSH reflex FT4, CBCAD, FE Prof #### [facility] [address], [place] [id number] AST [Catalytic activity/Vol] 36 U/L High 9-34 [facility] Comment on above: Performed By: #### V ITD, CMP, TSH reflex FT4, CBCAD, FE Prof #### [facility] [address], [place] [id number] Bilirubin [Mass/Vol] 0.48 mg/dL Normal 0.30-1.20 [facility] Comment on above: Performed By: #### V ITD, CMP, TSH reflex FT4, CBCAD, FE Prof #### [facility] [address], [place] [id number] BUN/CREA 19 Ratio Normal 6-22 [facility] Comment on above: Performed By: #### V ITD, CMP, TSH reflex FT4, CBCAD, FE Prof #### [facility] [address], [place] [id number] Calcium [Mass/Vol] 9.5 mg/dL Normal 8.6-10.[address] [facility] Comment on above: Performed By: #### V ITD, CMP, TSH reflex FT4, CBCAD, FE Prof #### [facility] [address], [place] [id number] Chloride [Moles/Vol] 105 mmol/L Normal 98-107 [facility] Comment on above: Performed By: #### V ITD, CMP, TSH reflex FT4, CBCAD, FE Prof #### [facility] [address], [place] [id number] CO2 [Moles/Vol] 27 mmol/L Normal 20-31 [facility] Comment on above: Performed By: #### V ITD, CMP, TSH reflex FT4, CBCAD, FE Prof #### [facility] [address], [place] [id number] Creatinine [Mass/Vol] 1.0 mg/dL Normal 0.6-1.4 [facility] Comment on above: Performed By: #### V ITD, CMP, TSH reflex FT4, CBCAD, FE Prof #### [facility] [address], [place] [id number] eGFRAA 67 mL/min/1.73m2 Normal >60 [facility] Comment on above: Performed By: #### V ITD, CMP, TSH reflex FT4, CBCAD, FE Prof #### [facility] [address], [place] [id number] eGFRNAA 55 mL/min/1.73m2 Low >60 [facility] Comment on above: Performed By: #### V ITD, CMP, TSH reflex FT4, CBCAD, FE Prof #### [facility] [address], [place] [id number] Globulin (S) [Mass/Vol] 2.3 g/dL Normal 1.9-3.7 [facility] [employer] Supervisor Comment on above: Performed By: #### V ITD, CMP, TSH reflex FT4, CBCAD, FE Prof #### [facility] [address], [place] [id number] Glucose [Mass/Vol] 85 mg/dL Normal 65-99 [facility] [employer] Supervisor Comment on above: Result Comment: For FASTING Glucose --- ADA reference ranges: Normal 65-99 mg/dl Prediabetes 100-125 Diabetes >/= 126 Performed By: #### V ITD, CMP, TSH reflex FT4, CBCAD, FE Prof #### [facility] [address], [place] [id number] Potassium [Moles/Vol] 3.8 mmol/L Normal 3.5-5.5 [facility] [employer] Super[employer] Comment on above: Performed By: #### V ITD, CMP, TSH reflex FT4, CBCAD, FE Prof #### [facility] [address], [place] [id number] Protein [Mass/Vol] 6.5 g/dL Normal 6.1-8.1 [facility] [employer] Super[employer] Comment on above: Performed By: #### V ITD, CMP, TSH reflex FT4, CBCAD, FE Prof #### [facility] [address], [place] [id number] Sodium [Moles/Vol] 140 mmol/L Normal 135-146 [facility] [employer] Super[employer] Comment on above: Performed By: #### V ITD, CMP, TSH reflex FT4, CBCAD, FE Prof #### [facility] [address], [place] [id number] Urea nitrogen [Mass/Vol] 19 mg/dL Normal 7-25 [facility] [employer] Comment on above: Performed By: #### V ITD, CMP, TSH reflex FT4, CBCAD, FE Prof #### [facility] [address], [place] [id number] Iron Profileon 01-13-2022 %FESAT 45 % Normal 11-50 [facility] [employer] Comment on above: Performed By: #### V ITD, CMP, TSH reflex FT4, CBCAD, FE Prof #### [facility] [address], [place] [id number] FE 129 ug/dL Normal 40-190 [facility] Comment on above: Result Comment: Refe miguel range change 06/25/2017. Prior reference range F 37-145 ug/dL, M 59-158 ug/dL. Performed By: #### V ITD, CMP, TSH reflex FT4, CBCAD, FE Prof #### [facility] [address], [place] [id number] TIBC 284 ug/dL Normal 250-450 [facility] Comment on above: Performed By: #### V ITD, CMP, TSH reflex FT4, CBCAD, FE Prof #### [facility] [address], [place] [id number] UIBC 155 ug/dL Normal 112-347 [facility] Comment on above: Performed By: #### V ITD, CMP, TSH reflex FT4, CBCAD, FE Prof #### [facility] [address], [place] [id number] TSH w/ Reflex to Free T4on 0 01-13-2022 TSH 3.100 uIU/mL Normal 0.400-4.500 [facility] Specialist Comment on above: Performed By: #### V ITD, CMP, TSH reflex FT4, CBCAD, FE Prof #### [facility] [address], [place] [id number] US Venous, Bilateral, Lower Maxwell 01-13-2022 US Venous, Bilateral, Lower Ext HISTORY: [...] by Bonilla Mckeon on 01/13/2022 1441 Normal [facility] Vitamin B12/Folateon 022 Cobalamin (Vitamin B12) [Mass/Vol] 258 pg/mL Normal 211-946 [facility] Comment on above: Performed By: #### B 12/Fol #### [facility] [address], [place] [id number] FOL 11.6 ng/mL Normal >4.7 [facility] [employer] Super[employer] Comment on above: Result Comment: Refe miguel range change 06/25/2017. Prior reference range F 4.8-37.3 ng/mL, M 4.5-32.2 ng/mL. Performed By: #### B 12/Fol #### [facility] [address], [place] [id number] Vitamin D 25-OHon 01-13-2022 VIT D 25 OH 30 ng/ml Normal >29 [facility] [employer] Supervisor Comment on above: Result Comment: Ching min D Status Deficiency <20 ng/mL Insufficiency 20-29 ng/mL Optimal 30-100 ng/mL Possible Toxicity >=150 ng/mL Performed By: #### V ITD, CMP, TSH reflex FT4, CBCAD, FE Prof #### [facility] [address], [place] [id number] Vital Signs Date Time Vital Sign Value Performing Clinician Facility 05-10-2023 10:45-0400 Body height 162.56 cm Ap Holland Other [facility] Other 05-10-2023 10:45-0400 Body mass index (BMI) [Ratio] 25.4 kg/m2 Ap Holland Other [facility] Other 05-10-2023 10:45-0400 Body weight 67.13 kg Ap Holland Other [facility] Other 05-10-2023 10:45-0400 Diastolic blood pressure 80 mm[Hg] Ap Holland Other [facility] Other 05-10-2023 10:45-0400 Systolic blood pressure 122 mm[Hg] Ap Holland Other [facility] Other 04-06-2023 11:15-0400 Body height 162.56 cm Ap Holland Other [facility] Other 04-06-2023 11:15-0400 Body mass index (BMI) [Ratio] 26.09 kg/m2 Apkalin Holland Other [facility] Other 04-06-2023 11:15-0400 Body weight 68.95 kg Ap Holland Other [facility] Other 04-06-2023 11:15-0400 Diastolic blood pressure 84 mm[Hg] Ap Skyler Other [facility] Other 04-06-2023 11:15-0400 Systolic blood pressure 124 mm[Hg] Ap Skyler Other [facility] Other 03-23-2023 11:30-0400 Body height 162.56 cm Ap Holland Other [facility] Other 03-23-2023 11:30-0400 Body mass index (BMI) [Ratio] 26.09 kg/m2 Ap Holland Other [facility] Other 03-23-2023 11:30-0400 Body weight 68.95 kg Ap Holland Other [facility] Other 03-23-2023 11:30-0400 Diastolic blood pressure 84 mm[Hg] Ap Skyler Other [facility] Other 03-23-2023 11:30-0400 Systolic blood pressure 140 mm[Hg] Ap Skyler Other [facility] Other 03-08-2023 09:00-0400 Body height 162.56 cm Ap Holland Other [facility] Other 03-08-2023 09:00-0400 Body mass index (BMI) [Ratio] 26.74 kg/m2 Ap Holland Other [facility] Other 03-08-2023 09:00-0400 Body weight 70.67 kg Ap Holland Other [facility] Other 03-08-2023 09:00-0400 Diastolic blood pressure 80 mm[Hg] Ap Holland Other [facility] Other 03-08-2023 09:00-0400 SaO2% (BldA) [Mass fraction] 99 % Ap Holland Other [facility] Other 03-08-2023 09:00-0400 Systolic blood pressure 130 mm[Hg] Ap Holland Other [facility] Other Encounters Encounter Date Encounter Type Care Provider Facility Start: 04-17-2024 End: 04-17-2024 ambulatory Kulwant García MD Facility: [facility] Start: 04-03-2024 End: 04-03-2024 ambulatory Kulwant García MD Facility: [facility] Start: 03-21-2024 End: 03-21-2024 ambulatory BLANKA XIE [...] Start: 10-08-2023 End: 10-08-2023 ambulatory Charles Hendricks Facility:[facility] Start: 09-27-2023 End: 09-27-2023 ambulatory Kulwant García MD Facility: [facility] Start: 09-13-2023 End: 09-13-2023 ambulatory Kulwant García MD Facility: [facility] Start: 09-02-2023 End: 09-02-2023 ambulatory ROSLYN A HACKENBURG Not Available Start: 09-01-2023 End: 09-01-2023 ambulatory ANJALI B APLING Not Available Start: 08-18-2023 End: 08-18-2023 ambulatory ANJALI B APLING Not Available Start: 08-03-2023 End: 08-03-2023 ambulatory ROSLYN A HACKENBURG Not Available Start: 07-28-2023 End: 07-28-2023 ambulatory PIERRE Brooklynn BOB Not Available Start: 07-20-2023 End: 07-20-2023 ambulatory ROSLYN A [place]ACKEN[place]G Not Available Start: 07-08-2023 End: 07-08-2023 ambulatory ROSLYN A HACKEN[place]G Not Available Start: 06-29-2023 End: 06-29-2023 ambulatory ROSLYN A HACKEN[place]G Not Available Start: 05-10-2023 Office outpatient vi sit 25 minutes Ap Holland [facility] Start: 05-10-2023 End: 05-10-2023 ambulatory Ap Holland Facility:[facility] Start: 05-10-2023 End: 05-10-2023 ambulatory [facility] Roslyn Briscoe Work Phone: [facility] Work Phone: Start: 05-10-2023 End: 05-10-2023 Patient encounter procedure [facility] Roslyn Briscoe Work Phone: [facility] [place] Work Phone: Start: 04-29-2023 (PROC) PROCEDURE Ap Hart [facility] Start: 04-29-2023 End: 04-29-2023 ambulatory Ap Holland Other [facility] Other Start: 04-06-2023 End: 04-06-2023 ambulatory Ap Holland Other [facility] Other Start: 04-06-2023 Office outpatient vi sit 25 minutes Apkalin Holland [facility] Start: 03-23-2023 End: 03-23-2023 ambulatory Ap Holland Other [facility] Other Start: 03-23-2023 Office outpatient vi sit 15 minutes Apkalin Holland [facility] Start: 03-16-2023 (PROC) PROCEDURE Ap Hart [facility] Start: 03-16-2023 End: 03-16-2023 ambulatory Ap Holland Other [facility] Other Start: 03-09-2023 End: 03-09-2023 ambulatory Ap Holland Other [facility] Other Start: 03-09-2023 Telephone encounter Ap Holland [facility] Start: 03-08-2023 End: 03-08-2023 ambulatory Ap Holland Other [facility] Other Start: 03-08-2023 Office consultation new/estab patient 60 min Ap [facility] Procedures Date Procedure Procedure Detail Performing Clinician Start: 05-10-2023 Plain X-ray of right hip [facility] Roslyn Briscoe Work Phone: Payers Date Payer Category Payer Private Health Insurance 2023 Self-pay 2021 Medicare [id number] 2. [id number] 1945 Unknown [id number] 2.16.84 0.1.241675.3.579.2.1258 1945 Unknown [id number] 2.16.84 0.1.496289.3.579.2.1258 1945 Unknown [id number] 2.16.84 0.1.060937.3.579.2.1258 1945 Unknown [id number] 2.16.84 0.1.424542.3.579.2.1258 1945 Unknown [id number] 2.16.84 0.1.396408.3.579.2.1258 1945 Unknown [id number] 2.16.84 0.1.047633.3.579.2.1258 1945 Unknown [id number] 2.16.84 0.1.269571.3.579.2.1258 1945 Unknown [id number] 2.16.84 0.1.205853.3.579.2.1258 1945 Unknown [id number] 2.16.84 0.1.113318.3.579.2.1258 1945 Unknown [id number] 2.16.84 0.1.973704.3.579.2.1258 1943 Unknown [id number] 2.16.84 0.1.100326.3.579.2.1258 1943 Unknown [id number] 2.16.84 0.1.994608.3.579.2.1258 1945 Unknown [id number] 2.16.84 0.1.122472.3.579.2.1258 1943 Unknown [id number] 2.16.84 0.1.749549.3.579.2.1258 1943 Unknown [id number] 2.16.84 0.1.326856.3.579.2.1258 1945 Unknown [id number] 2.16.840 .1.970559.3.579.2.1258 1945 Unknown [id number] 2.16.840 .1.158356.3.579.2.1258 1945 Unknown [id number] 2.16.840 .1.616089.3.579.2.1258 1943 Unknown [id number] 2.16.840 .1.683557.3.579.2.1258 1943 Unknown [id number] 2.16.840 .1.871298.3.579.2.1258 1943 Unknown [id number] 2.16.840 .1.199484.3.579.2.1258 1943 Unknown [id number] 2.16. 840.1.345221.3.579.2. 1945 Unknown [id number] 2.16. 840.1.316335.3.579.2. 1945 Unknown [id number] 2.16. 840.1.321512.3.579.2. 1945 Unknown [id number] 2.16. 840.1.121118.3.579.2. Medicare [id number] 2.1 6.840.1.545616.19 Unknown [id number] 2.16.8 40.1.255148.3.579.2.531 Unknown [id number] 2.16.8 40.1.761643.3.579.2.531 Social History Date Type Detail Facility Sex Assigned At [facility] Other Start: 1945 Sex Assigned At Female [facility] Evaluation note 05-10-2023 Note Date & [...] up in 1 week for further evaluation. [facility] Other Evaluation note 04-06-2023 Note Date & [...] (ICD-10 - G89.29) Proceed with treatment plan. [facility] Other Evaluation note 03-23-2023 Note Date & [...] (ICD-10 - G89.29) Follow up as needed [facility] Other Evaluation note 03-08-2023 Note Date & [...] negative findings were considered in medical decision-making. [facility] Other Evaluation note Note Date & Type Note Facility Evaluation note No Information [facility] [employer] Other Evaluation note Note Date & Type Note Facility Evaluation note No assessment information availa [facility] Work Phone: History general Narrative - Reported Note Date & Type Note Facility History general Narrative - Reported Type Medical History hypercholestolemia Medical History stenosis [facility] Other Summary Purpose Family History No Family [...] section and content) DATE CREATED AUTHOR 12/11/2022 [facility] Specialist DATE CREATED AUTHOR AUTHOR'S ORGANIZ ATION 10/19/2023 [facility] DATE CREATED AUTHOR AUTHOR'S ORGANIZ ATION 03/22/2024 [facility] DATE CREATED AUTHOR AUTHOR'S ORGANIZ ATION 04/23/2024 [facility] REASON FOR VISIT (unrecogniz ed section and content) Referred by Roslyn Allen [facility] for Lumbar spine stenosis and arthritis; MRI done [facility] InformationRIGHT L4,5 TRANSFORAMINAL EPIDURAL STEROID INJ/ELFOLLOW UP AFTER RIGHT LTRf/u increase in pain right hip into legL5-S1 EPIDURAL STEROID INJ/ELfollow up after LES Care Teams (unrecognized sec tion and content) Team Status: Active Member Role Status Dates KATYA AndersonC Primary Care Provider Activ e Team Status: [...] BE BASED ON THE PRIMARY CLINICAL RECORDS. [employer] [facility] provides no warranty or guarantee of the accuracy or completeness of information in this document.
--- NOTE | 2024-05-03 09:54 | P.CN_ITS ---
Consult Note: HPI Data of Consult Patient: known to practice within the last 3 years Consult date: 04/03/24 Requesting Physician: Shaneka Llanes NP Primary Care Provider: FERNIE LEONG Consult Narrative Reason for consult: low back, right leg pain Narrative: 78yof who presents for assessment. worsening pain and weakness into right lower extremity. imaging consistent with severe stenosis at l4-5 and l5-s1. previously had lumbar tfesi, which helped significantly, but then patient fell shortly thereafter and fractured right hip, which required surgical intervention. continues in a series of provider directed home exercises >6 weeks, without lasting benefit. uses tramadol as needed. denies adverse med side effects. recently underwent right L4-5 L5-S1 TFESI with 75% improvement in pain and functional ability ongoing. continues to have moderate to severe right SIJ pain. cc:: CC: Shaneka Llanes NP Review of Systems ROS Status of ROS 10 or more systems reviewed and unremark able except as noted in history and below Musculoskeletal Reports: back pain and joint pain PFSH PFSH Medical History Essential (primary) hypertension ?I10 - Essential (primary) hypertension (ICD-10) Vertigo ?R42 - Dizziness and giddiness (ICD-10) Sinus arrhythmia seen on electrocardiogram ?I49.8 - Other specified cardiac arrhythmias (ICD-10) Hypothyroid ?E03.9 - Hypothyroidism, unspecified (ICD-10) Sacroiliac dysfunction ?M53.3 - Sacrococcygeal disorders, not elsewhere classified (ICD-10) Lumbar spondylosis ?M47.816 - Spondylosis without myelopathy or radiculopathy, lumbar region (ICD-10) Lumbar stenosis with neurogenic claudication ?M48.062 - Spinal stenosis, lumbar region with neurogenic claudication (ICD- 10) DDD (degenerative disc disease), lumbar ?M51.36 - Other intervertebral disc degeneration, lumbar region (ICD-10) Low back pain ?M54.50 - Low back pain, unspecified (ICD-10) Irregular heartbeat ?I49.9 - Cardiac arrhythmia, unspecified (ICD-10) Acid reflux ?K21.9 - Gastro-esophageal reflux disease without esophagitis (ICD-10) Rheumatoid arthritis ?M06.9 - Rheumatoid arthritis, unspecified (ICD-10) Osteoarthritis ?M19.90 - Unspecified osteoarthritis, unspecified site (ICD-10) Hearing deficit ?H91.90 - Unspecified hearing loss, unspecified ear (ICD-10) Hypertension ?I10 - Essential (primary) hypertension (ICD-10) High cholesterol ?E78.00 - Pure hypercholesterolemia, unspecified (ICD-10) Family History Father Family history of hypertension Family history of stroke Mother Family history of hypertension Family history of myocardial infarction, Onset Age: 45 Social History Within the past year, how often did you have a drink containing alcohol: monthly or less Within the past year, how often did you have six or more drinks on one occasion: never Smoking status: Never smoker Non-prescribed substance use: denies use 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 Known occupational exposures/hazards: No Highest level of school completed/degree received: Master's degree Are you now , , , , never or living with a partner: In a typical week, how many times do you talk on the telephone with family, friends, or neighbors: twice per week How often do you get together with friends or relatives: twice per week How often do you attend pres[employer]ian or jewish services: 4 or more times per year Little interest or pleasure in doing things: not at all Feeling down, depressed, or hopeless: not at all Feel stressed/tense/nervous/anxious/difficulty sleeping: only a little Life stressor details: medical issues Gender Identity: female Meds Home Medications and Allergies Home Medications ?Medication ?Instructions ?Recorded ?Confirmed ?Type atorvastatin 10 mg tablet 10 mg PO DAILY 07/29/23 04/17/24 History levothyroxine 75 mcg tablet 75 mcg PO DAILY 07/29/23 04/17/24 History metoprolol succinate 25 mg 25 mg PO DAILY 07/29/23 04/17/24 History tablet,extended release 24 hr omeprazole 40 mg capsule,delayed 40 mg PO DAILY 07/29/23 04/17/24 History release acetaminophen 500 mg tablet 1,000 mg PO Q6H PRN pain 09/13/23 04/17/24 History (Tylenol Extra Strength) meclizine 25 mg tablet 25 mg PO BID 09/13/23 10/07/23 History fluticasone propionate 50 2 spray intranasal QD #16 grams 10/12/23 04/17/24 Rx mcg/actuation nasal spray,suspension hydrocodone 5 mg-acetaminophen 325 1 tab PO Q4H PRN Pain Scale 4-6 10/12/23 04/17/24 Rx mg tablet #20 tabs hydrocodone 5 mg-acetaminophen 325 2 tab PO Q4H PRN Pain Scale 7-10 10/12/23 04/17/24 Rx mg tablet #20 tabs meclizine 25 mg tablet 25 mg PO TID PRN dizziness #30 tabs 10/12/23 04/17/24 Rx tramadol 50 mg tablet 50 mg PO BID PRN pain #60 tabs 04/14/24 04/17/24 Rx diazepam 5 mg tablet (Valium) 5 mg PO Q8H 04/17/24 04/17/24 History Allergies Allergy/AdvReac Type Severity Reaction Status Date / Time No Known Drug Allergies Allergy Verified 04/17/24 09:59 Exam Narrative Exam Narrative: Psych-alert and oriented x 3. Attentive and appropriate, constitutionally normal, displays normal mood and affect per situation. There are no obvious deficits in memory, reasoning, or intellect.? Skin-no obvious rashes, bruising, erythema noted to the patient's area of pain.? Extremities- extremities are warm with minimal edema and palpable pulses. Lumbar-tenderness to palpation noted in the lumbar spine and paraspinal musculature. Pain is elicited with flexion, extension, and lateral rotation of the lumbar spine. Range of motion is diminished with these motions. Facet loading maneuvers are positive. Strength-noted to be unremarkable with the exception of decreased strength rated at 4 out of 5 in right quadriceps femoris, anterior tibialis. Sensory-no notable sensory deficits in the bilateral lower extremities to touch or pinprick in all dermatomal distributions with the exception to decreased sensation to the right L4, 5 dermatomal distribution Sacroiliac - tender to palpation over right PSIS. Positive Tre's on the rig ht. Positive thigh thrust on the right. Coordination remains intact.? Gait remains non-antalgic. Assessment and Plan Assessment and Plan (1) Sacroiliac dysfunction: (2) Sacroiliac joint dysfunction of right side: (3) Lumbar stenosis with neurogenic claudication: (4) Hypertension: Qualifiers: Hypertension type: primary hypertension Qualified Code(s): I10 - Essential (primary) hypertension (5) Asymptomatic hypertension: (6) DDD (degenerative disc disease), lumbar: (7) Lumbar spondylosis: Plan proceed with right SIJ injection under fluoroscopy with 5mg PO valium 30-60 mins prior to procedure asymptomatic HTN, BP rechecked 3 times, on third attempt after sitting for 10mins manual BP in RUE 190/102. denies headache, chest pain, sob, nausea. encouraged to recheck at home and call PCP. go to er if symptoms develop or BP does not improve continue current medications f/u 1-2 weeks after SIJ injection
== END 2024-05-03 09:30 | disposition home or self-care (01) ==
LOC: PM 09:29
PROVIDERS: PCP Family Medicine; Visit Provider Nurse Practitioner
DX: M53.3 Sacrococcygeal disorders, not elsewhere classified (principal); M48.062 Spinal stenosis, lumbar region with neurogenic claudication; I10 Essential (primary) hypertension; M51.36 Other intervertebral disc degeneration, lumbar region; M47.816 Spondylosis without myelopathy or radiculopathy, lumbar region
CPT/HCPCS: G0463

== ENCOUNTER 2024-05-15 10:04 | Day surgery (SDC) | payer MEDICARE, SELFPAY ==
--- OUTSIDE RECORDS SUMMARY | 2024-05-15 10:23 | XMS_ITS | CCD ---
Author Organization [facility] Inform ion [facility] Care Team Providers Care Slate Trimmer Name Role Phone Ap Holland Unavailable FABIENNE Briscoe Primary Care Provider MD Ap Holland Attending Provider Charles Hendricks Admitting Unavailable hCarles Hendricks Attending Unavailable Roslyn Briscoe Primary Care [...] Facility (7 sources) [facility] Drug allergy Unknown [facility] Other (1 source) Pollen Drug allergy (disorder) 05-18-2023 [facility] Repository Medications Current Medications Medication Drug [...] Criteria Committee. Vascular Medicine 2020; https://journals.diandra pub.com/doi/full/10.1 177/5023144M066107063 FINDINGS: RIGHT ICA 84. Ratio 1.6 LEFT [...] Normal Not Available William 10-08-2023 L Specimen: [id number] Received: 10/11/23 Status: MAURI Ga Num: [id number] Spec Type: Surgical Subm Dr: Charles Hendricks Tissues: A Femoral Head - Fracture (RT HIP) Procedures: HE/2, Gross/Micro L4, Decalcification Age/ Patient Sex Location Account Attending Physician Yvonne Liz 77/F LABELL [id number] Charles Hendricks SPEC NUM: [id number] RECD: 10/11/23 STATUS: [facility] NUM: [id number] JAVI: 10/08/[address]: Charles Hendricks ENTERED: [...] of the femoral neck is xiong-red, trabecular. 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 are submitted following decalcification in 2 cassettes as follows: A1 - Femoral head A2 - Reamings from femoral neck CPT Codes 57987, 05467 -------- -------- Specimen: [id number] Received: 10/11/23 Status: MAURI Ga Num: [id number] Spec Type: Surgical Subm Dr: Charles Hendricks Tissues: A Femoral Head - Fracture (RT HIP) Procedures: HE/2, Gross/Micro L4, Decalcification -------- Patient: Yvonne Liz [id number] (Continued) -------- Signed (signature on file) Agatha Brantley MD 10/18/23 1237 [facility] CT HEAD WO IV CONTRASTon [...] 05-10-2023 XR hip RT min 2V(w/wo pelvis)* [facility] [address] [place] [address] XRay Report Signed Patient: Yvonne Liz MR#: [id number] 15 : 1945 Acct:[id number] Age/Sex: 77 / F ADM Date: 05/10/23 Loc: XD Room: Type: [facility] Attending Dr: Ap Holland MD Copies [...] Nick Stokes M.D.05/10/2023 3:23 PM Dictation Location: [place] [address] Transcribed By: [facility] 05/10/231522 Dictated By: Nick Stokes DO 05/10/231520 Signed By: 05/10/23 152 [facility] XR Spine Lumbar Complete w/F maxi AND [place] 12-10-2022 XR Spine Lumbar Complete w/Flex AND [...] by Roosevelt Motley on 12/10/2022 1457 Normal [facility] XR Hip Complete Right*on XR Hip Complete Right* HISTORY: Posterior hip radiating pain falls x 2 years FINDINGS: Mild bilateral superior medial hip joint space loss. No pincer or CAM deformities. Prominent arterial calcifications. IMPRESSION: 1. 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 Report reported and signed by Bonilla Mckeon on 04/29/2022 1031 Normal [facility] Complete Blood Count with Au to Diffon 01-13-2022 Basophils (Bld) [#/Vol] 0.06 10*3/uL Normal 0.00-0.20 [facility] Comment on above: Performed By: #### V ITD, CMP, TSH reflex FT4, CBCAD, FE Prof #### [facility] [address], [place] [id number] Basophils/100 WBC (Bld) 1.3 % Normal [facility] Comment on above: Performed By: #### V ITD, CMP, TSH reflex FT4, CBCAD, FE Prof #### [facility] [address], [place] [id number] Eosinophils (Bld) [#/Vol] 0.36 10*3/uL Normal 0.02-0.50 [facility] Comment on above: Performed By: #### V ITD, CMP, TSH reflex FT4, CBCAD, FE Prof #### [facility] [address], [place] [id number] Eosinophils/100 WBC (Bld) 7.6 % Normal [facility] Comment on above: Performed By: #### V ITD, CMP, TSH reflex FT4, CBCAD, FE Prof #### [facility] [address], [place] [id number] Erythrocyte distribution width (RBC) [Ratio] 12.1 % Normal 11.0-15.0 [facility] Comment on above: Performed By: #### V ITD, CMP, TSH reflex FT4, CBCAD, FE Prof #### [facility] [address], [place] [id number] Hematocrit (Bld) [Volume fraction] 34.0 % Low 35.0-47.0 [facility] Comment on above: Performed By: #### V ITD, CMP, TSH reflex FT4, CBCAD, FE Prof #### [facility] [address], [place] [id number] Hemoglobin (Bld) [Mass/Vol] 11.9 g/dL Normal 11.6-15.5 [facility] Comment on above: Performed By: #### V ITD, CMP, TSH reflex FT4, CBCAD, FE Prof #### [facility] [address], [place] [id number] Lymphocytes (Bld) [#/Vol] 1.2 10*3/uL Normal 0.9-3.9 [facility] Comment on above: Performed By: #### V ITD, CMP, TSH reflex FT4, CBCAD, FE Prof #### [facility] [address], [place] [id number] Lymphocytes/100 WBC (Bld) 26.1 % Normal [facility] Comment on above: Performed By: #### V ITD, CMP, TSH reflex FT4, CBCAD, FE Prof #### [facility] [address], [place] [id number] MCH (RBC) [Entitic mass] 34.0 pg High 27.0-33.0 [facility] Comment on above: Performed By: #### V ITD, CMP, TSH reflex FT4, CBCAD, FE Prof #### [facility] [address], [place] [id number] MCHC (RBC) [Mass/Vol] 35.0 g/dL Normal 32.0-36.0 [facility] Comment on above: Performed By: #### V ITD, CMP, TSH reflex FT4, CBCAD, FE Prof #### [facility] [address], [place] [id number] MCV (RBC) [Entitic vol] 97 fL Normal 80-100 [facility] Comment on above: Performed By: #### V ITD, CMP, TSH reflex FT4, CBCAD, FE Prof #### [facility] [address], [place] [id number] Monocytes (Bld) [#/Vol] 0.4 10*3/uL Normal 0.2-0.9 [facility] Comment on above: Performed By: #### V ITD, CMP, TSH reflex FT4, CBCAD, FE Prof #### [facility] [address], [place] [id number] Monocytes/100 WBC (Bld) 8.9 % Normal [facility] Comment on above: Performed By: #### V ITD, CMP, TSH reflex FT4, CBCAD, FE Prof #### [facility] [address], [place] [id number] Neutrophils (Bld) [#/Vol] 2.6 10*3/uL Normal 1.5-7.8 [facility] Comment on above: Performed By: #### V ITD, CMP, TSH reflex FT4, CBCAD, FE Prof #### [facility] [address], [place] [id number] Neutrophils/100 WBC (Bld) 55.9 % Normal [facility] Comment on above: Performed By: #### V ITD, CMP, TSH reflex FT4, CBCAD, FE Prof #### [facility] [address], [place] [id number] Platelet mean volume (Bld) [Entitic vol] 11.00 fL Normal 7.50-12.50 [facility] Comment on above: Performed By: #### V ITD, CMP, TSH reflex FT4, CBCAD, FE Prof #### [facility] [address], [place] [id number] Platelets (Bld) [#/Vol] 102 10*3/uL Low 140-400 [facility] Comment on above: Performed By: #### V ITD, CMP, TSH reflex FT4, CBCAD, FE Prof #### [facility] [address], [place] [id number] RBC (Bld) [#/Vol] 3.50 10*6/uL Low 3.90-5.20 [facility] Comment on above: Performed By: #### V ITD, CMP, TSH reflex FT4, CBCAD, FE Prof #### [facility] [address], [place] [id number] RDW-SD 42.1 fL Normal 37.0-50.0 [facility] Comment on above: Performed By: #### V ITD, CMP, TSH reflex FT4, CBCAD, FE Prof #### [facility] [address], [place] [id number] WBC (Bld) [#/Vol] 4.7 10*3/uL Normal 3.8-11.0 [facility] Comment on above: Performed By: #### V ITD, CMP, TSH reflex FT4, CBCAD, FE Prof #### [facility] [address], [place] [id number] Comprehensive Metabolic Pane [facility] 01-13-2022 Albumin [Mass/Vol] 4.2 g/dL Normal 3.6-5.1 [facility] Comment on above: Performed By: #### V ITD, CMP, TSH reflex FT4, CBCAD, FE Prof #### [facility] [address], [place] [id number] Albumin/Globulin [Mass ratio] 1.8 {ratio} Normal 1.0-2.5 [facility] Comment on above: Performed By: #### V ITD, CMP, TSH reflex FT4, CBCAD, FE Prof #### [facility] [address], [place] [id number] ALP [Catalytic activity/Vol] 83 U/L Normal 35-119 [facility] Comment on above: Performed By: #### V ITD, CMP, TSH reflex FT4, CBCAD, FE Prof #### [facility] [address], [place] [id number] ALT [Catalytic activity/Vol] 28 U/L Normal 6-33 [facility] Comment on above: Result Comment: 07/09 Female reference range changed. Performed By: #### V ITD, CMP, TSH reflex FT4, CBCAD, FE Prof #### [facility] [address], [place] [id number] Anion gap [Moles/Vol] 12 mmol/L Normal 12-20 [facility] Comment on above: Result Comment: Effe ctive 08/14/2019 reference range changed. Performed By: #### V ITD, CMP, TSH reflex FT4, CBCAD, FE Prof #### [facility] [address], [place] [id number] AST [Catalytic activity/Vol] 36 U/L High 9-34 [facility] Comment on above: Performed By: #### V ITD, CMP, TSH reflex FT4, CBCAD, FE Prof #### [facility] [address], [place] [id number] Bilirubin [Mass/Vol] 0.48 mg/dL Normal 0.30-1.20 [facility] Comment on above: Performed By: #### V ITD, CMP, TSH reflex FT4, CBCAD, FE Prof #### [facility] [address], [place] [id number] BUN/CREA 19 Ratio Normal 6-22 [facility] Comment on above: Performed By: #### V ITD, CMP, TSH reflex FT4, CBCAD, FE Prof #### [facility] [address], [place] [id number] Calcium [Mass/Vol] 9.5 mg/dL Normal 8.6-10.2 [facility] Comment on above: Performed By: #### V ITD, CMP, TSH reflex FT4, CBCAD, FE Prof #### [facility] [address], [place] [id number] Chloride [Moles/Vol] 105 mmol/L Normal 98-107 [facility] Comment on above: Performed By: #### V ITD, CMP, TSH reflex FT4, CBCAD, FE Prof #### [facility] [address], [place] [id number] CO2 [Moles/Vol] 27 mmol/L Normal 20-31 [facility] Comment on above: Performed By: #### V ITD, CMP, TSH reflex FT4, CBCAD, FE Prof #### [facility] [address], [place] [id number] Creatinine [Mass/Vol] 1.0 mg/dL Normal 0.6-1.4 [facility] Comment on above: Performed By: #### V ITD, CMP, TSH reflex FT4, CBCAD, FE Prof #### [facility] [address], [place] [id number] eGFRAA 67 mL/min/1.73m2 Normal >60 [facility] Comment on above: Performed By: #### V ITD, CMP, TSH reflex FT4, CBCAD, FE Prof #### [facility] [address], [place] [id number] eGFRNAA 55 mL/min/1.73m2 Low >60 [facility] Comment on above: Performed By: #### V ITD, CMP, TSH reflex FT4, CBCAD, FE Prof #### [facility] [address], [place] [id number] Globulin (S) [Mass/Vol] 2.3 g/dL Normal 1.9-3.7 [facility] Comment on above: Performed By: #### V ITD, CMP, TSH reflex FT4, CBCAD, FE Prof #### [facility] [address], [place] [id number] Glucose [Mass/Vol] 85 mg/dL Normal 65-99 [facility] Comment on above: Result Comment: For FASTING Glucose --- ADA reference ranges: Normal 65-99 mg/dl Prediabetes 100-125 Diabetes >/= 126 Performed By: #### V ITD, CMP, TSH reflex FT4, CBCAD, FE Prof #### [facility] [address], [place] [id number] Potassium [Moles/Vol] 3.8 mmol/L Normal 3.5-5.5 [facility] Comment on above: Performed By: #### V ITD, CMP, TSH reflex FT4, CBCAD, FE Prof #### [facility] [address], [place] [id number] Protein [Mass/Vol] 6.5 g/dL Normal 6.1-8.1 [facility] Comment on above: Performed By: #### V ITD, CMP, TSH reflex FT4, CBCAD, FE Prof #### [facility] [address], [place] [id number] Sodium [Moles/Vol] 140 mmol/L Normal 135-146 [facility] Comment on above: Performed By: #### V ITD, CMP, TSH reflex FT4, CBCAD, FE Prof #### [facility] [address], [place] [id number] Urea nitrogen [Mass/Vol] 19 mg/dL Normal 7-25 [facility] Comment on above: Performed By: #### V ITD, CMP, TSH reflex FT4, CBCAD, FE Prof #### [facility] [address], [place] [id number] Iron Profileon 01-13-2022 %FESAT 45 % Normal 11-50 [facility] Comment on above: Performed By: #### V ITD, CMP, TSH reflex FT4, CBCAD, FE Prof #### [facility] [address], [place] [id number] FE 129 ug/dL Normal 40-190 [facility] Comment on above: Result Comment: Refe miguel range change 06/25/2017. Prior reference range F 37-145 ug/dL, M 59-158 ug/dL. Performed By: #### V ITD, CMP, TSH reflex FT4, CBCAD, FE Prof #### [facility] [address], [place] [id number] TIBC 284 ug/dL Normal 250-450 [facility] Comment on above: Performed By: #### V ITD, CMP, TSH reflex FT4, CBCAD, FE Prof #### [facility] [address], [place] [id number] UIBC 155 ug/dL Normal 112-347 [facility] Comment on above: Performed By: #### V ITD, CMP, TSH reflex FT4, CBCAD, FE Prof #### [facility] [address], [place] [id number] TSH w/ Reflex to Free T4on 0 01-13-2022 TSH 3.100 uIU/mL Normal 0.400-4.500 [facility] Comment on above: Performed By: #### V ITD, CMP, TSH reflex FT4, CBCAD, FE Prof #### [facility] [address], [place] [id number] US Venous, Bilateral, [place] 01-13-2022 US Venous, Bilateral, Lower Ext HISTORY: [...] by Bonilla Mckeon on 01/13/2022 1441 Normal [facility] Vitamin B12/Folateon 022 Cobalamin (Vitamin B12) [Mass/Vol] 258 pg/mL Normal 211-946 [facility] Comment on above: Performed By: #### B 12/Fol #### [facility] [address], [place] [id number] FOL 11.6 ng/mL Normal >4.7 [facility] Comment on above: Result Comment: Refe miguel range change 06/25/2017. Prior reference range F 4.8-37.3 ng/mL, M 4.5-32.2 ng/mL. Performed By: #### B 12/Fol #### [facility] [address], [place] [id number] Vitamin D 25-OHon 01-13-2022 VIT D 25 OH 30 ng/ml Normal >29 [facility] Comment on above: Result Comment: Ching min D Status Deficiency <20 ng/mL Insufficiency 20-29 ng/mL Optimal 30-100 ng/mL Possible Toxicity >=150 ng/mL Performed By: #### V ITD, CMP, TSH reflex FT4, CBCAD, FE Prof #### [facility] [address], [place] [id number] Vital Signs Date Time Vital Sign Value Performing Clinician Facility 05-10-2023 10:45-0400 Body height 162.56 cm Ap Holland Other [facility] 05-10-2023 10:45-0400 Body mass index (BMI) [Ratio] 25.4 kg/m2 Ap Holland Other [facility] 05-10-2023 10:45-0400 Body weight 67.13 kg Ap Holland Other [facility] 05-10-2023 10:45-0400 Diastolic blood pressure 80 mm[Hg] Ap Holland Other [facility] 05-10-2023 10:45-0400 Systolic blood pressure 122 mm[Hg] Ap Holland Other [facility] 04-06-2023 11:15-0400 Body height 162.56 cm Ap Holland Other [facility] 04-06-2023 11:15-0400 Body mass index (BMI) [Ratio] 26.09 kg/m2 Apkalin Holland Other [facility] 04-06-2023 11:15-0400 Body weight 68.95 kg Ap Holland Other [facility] 04-06-2023 11:15-0400 Diastolic blood pressure 84 mm[Hg] Ap Skyler Other [facility] 04-06-2023 11:15-0400 Systolic blood pressure 124 mm[Hg] Ap Skyler Other [facility] Other 03-23-2023 11:30-0400 Body height 162.56 cm Ap Holland Other [facility] Other 03-23-2023 11:30-0400 Body mass index (BMI) [Ratio] 26.09 kg/m2 Ap Holland Other [facility] Other 03-23-2023 11:30-0400 Body weight 68.95 kg Ap Holland Other [facility] 03-23-2023 11:30-0400 Diastolic blood pressure 84 mm[Hg] Ap Skyler Other [facility] Other 03-23-2023 11:30-0400 Systolic blood pressure 140 mm[Hg] Ap Skyler Other [facility] 03-08-2023 09:00-0400 Body height 162.56 cm Ap Holland Other [facility] Other 03-08-2023 09:00-0400 Body mass index (BMI) [Ratio] 26.74 kg/m2 Ap Holland Other [facility] Other 03-08-2023 09:00-0400 Body weight 70.67 kg Ap Holland Other [facility] Other 03-08-2023 09:00-0400 Diastolic blood pressure 80 mm[Hg] Ap Holland Other [facility] 03-08-2023 09:00-0400 SaO2% (BldA) [Mass fraction] 99 % Ap Holland Other [facility] Other 03-08-2023 09:00-0400 Systolic blood pressure 130 mm[Hg] Ap Holland Other [facility] Other Encounters Encounter Date Encounter Type Care [...] Not Available Start: 11-17-2023 End: 11-17-2023 ambulatory FERNEI LEONG Not Available Start: 11-16-2023 End: 11-16-2023 ambulatory FERNIE LEONG Not Available Start: 10-08-2023 End: 10-08-2023 ambulatory Charles Hendricks Facility:[facility] Start: 09-27-2023 End: 09-27-2023 ambulatory Kulwant [...] Start: 05-10-2023 End: 05-10-2023 ambulatory Ap Holland Facility:[facility] Start: 05-10-2023 End: 05-10-2023 ambulatory JAMB CUTTER-C Roslyn Briscoe Work Phone: [facility] Work Phone: Start: 05-10-2023 End: 05-10-2023 Patient encounter procedure JAMB CUTTER-C Roslyn Briscoe Work Phone: [facility] Work Phone: Start: 04-29-2023 (PROC) PROCEDURE Ap [facility] Start: 04-29-2023 End: 04-29-2023 ambulatory Ap Holland Other [facility] Other Start: 04-06-2023 End: 04-06-2023 ambulatory Ap Holland Other [facility] Other Start: 04-06-2023 Office outpatient vi sit 25 minutes Apkalin Holland [facility] Start: 03-23-2023 End: 03-23-2023 ambulatory Ap Holland Other [facility] Other Start: 03-23-2023 Office outpatient vi sit 15 minutes Apkalin Holland [facility] Start: 03-16-2023 (PROC) PROCEDURE Ap [facility] Start: 03-16-2023 End: 03-16-2023 ambulatory Ap Holland Other [facility] Start: 03-09-2023 End: 03-09-2023 ambulatory Ap Holland Other [facility] Start: 03-09-2023 Telephone encounter Ap Holland [facility] Start: 03-08-2023 End: 03-08-2023 ambulatory Ap Holland Other [facility] Other Start: 03-08-2023 Office consultation new/estab patient 60 min Ap [facility] Procedures Date Procedure Procedure Detail Performing Clinician Start: 05-10-2023 Plain X-ray of right hip JAMB CUTTER-C Roslyn Briscoe Work Phone: Payers Date Payer Category Payer Private Health Insurance 2023 Self-pay 2021 Medicare [id number] 2. [id number] 1945 Unknown [id number] 2.16.84 0.1.974315.3.579.2.1258 1945 Unknown [id number] 2.16.84 0.1.174777.3.579.2.1258 1945 Unknown [id number] 2.16.84 0.1.304712.3.579.2.1258 1945 Unknown [id number] 2.16.84 0.1.871972.3.579.2.1258 1945 Unknown [id number] 2.16.84 0.1.260086.3.579.2.1258 1945 Unknown [id number] 2.16.84 0.1.278269.3.579.2.1258 1945 Unknown [id number] 2.16.84 0.1.950999.3.579.2.1258 1945 Unknown [id number] 2.16.84 0.1.901529.3.579.2.1258 1945 Unknown [id number] 2.16.84 0.1.237587.3.579.2.1258 1945 Unknown [id number] 2.16.84 0.1.771387.3.579.2.1258 1945 Unknown [id number] 2.16.84 0.1.335553.3.579.2.1258 1945 Unknown [id number] 2.16.84 0.1.021749.3.579.2.1258 1945 Unknown [id number] 2.16.84 0.1.148401.3.579.2.1258 1945 Unknown [id number] 2.16.84 0.1.162435.3.579.2.1258 1945 Unknown [id number] 2.16.84 0.1.807613.3.579.2.1258 1945 Unknown [id number] 2.16.840 .1.375843.3.579.2.1258 1945 Unknown [id number] 2.16.840 .1.284232.3.579.2.1258 1945 Unknown [id number] 2.16.840 .1.649725.3.579.2.1258 1943 Unknown [id number] 2.16.840 .1.956415.3.579.2.1258 1943 Unknown [id number] 2.16.840 .1.323374.3.579.2.1258 1943 Unknown [id number] 2.16.840 .1.627037.3.579.2.1258 1945 Unknown [id number] 2.16. 840.1.574764.3.579.2. 1945 Unknown [id number] 2.16. 840.1.716910.3.579.2. 1945 Unknown [id number] 2.16. 840.1.940399.3.579.2. 1945 Unknown [id number] 2.16. 840.1.973137.3.579.2. Medicare [id number] 2.1 6.840.1.200069.19 Unknown [id number] 2.16.8 40.1.801850.3.579.2.531 Unknown [id number] 2.16.8 40.1.267121.3.579.2.531 Social History Date Type Detail Facility Sex Assigned At [facility] Other Start: 1945 Sex Assigned At Female Audrey [facility] Evaluation note 05-10-2023 Note Date & [...] up in 1 week for further evaluation. [facility] Other Evaluation note 04-06-2023 Note Date & [...] (ICD-10 - G89.29) Proceed with treatment plan. [facility] Other Evaluation note 03-23-2023 Note Date & [...] (ICD-10 - G89.29) Follow up as needed [facility] Other Evaluation note 03-08-2023 Note Date & [...] negative findings were considered in medical decision-making. [facility] Other Evaluation note Note Date & Type Note Facility Evaluation note No Information [email or web address] Other Evaluation note Note Date & Type Note Facility Evaluation note No assessment information availa [facility] Work Phone: History general Narrative - Reported Note Date & Type Note Facility History general Narrative - Reported Type Medical History hypercholestolemia Medical History stenosis [facility] Other Summary Purpose Family History No Family [...] section and content) DATE CREATED AUTHOR 12/11/2022 [facility] DATE CREATED AUTHOR AUTHOR'S ORGANIZ ATION 10/19/2023 [facility] DATE CREATED AUTHOR AUTHOR'S ORGANIZ ATION 03/22/2024 [facility] DATE CREATED AUTHOR AUTHOR'S ORGANIZ ATION 04/23/2024 [facility] REASON FOR VISIT (unrecogniz ed section and content) Referred by Roslyn Allen [facility] for Lumbar spine stenosis and arthritis; MRI [...] BE BASED ON THE PRIMARY CLINICAL RECORDS. [facility]. provides no warranty or guarantee of the accuracy or completeness of information in this document.
[2024-05-15 10:53] VITALS: BP 150/97; PULSE 79; TEMP 36.3; O2SAT 99
[2024-05-15 11:16] VITALS: BP 175/87; BP 186/87; PULSE 71; O2SAT 92; O2SAT 93
[2024-05-15] MEDS: BUPIVACAINE HCL 0.25% PF 25 MG/10 ML VIAL 2 ML INJ (11:19)
[2024-05-15] MEDS: TRIAMCINOLONE ACETONIDE 40 MG/ML VIAL INJ (11:20)
[2024-05-15] MEDS: LIDOCAINE HCL 2% 400 MG/20 ML MDV INJ (11:20)
[2024-05-15] MEDS: IOHEXOL 240 MG/ML - 10 ML VIAL 12 MG INJ (11:20)
--- NOTE | 2024-05-15 11:20 | W.PM.PROCNOT ---
Date of procedure: 05/15/24 Pre-op diagnosis: Pain due to right sacroiliitis Post-op diagnosis: same as pre-op Procedure: Procedure: Right sacroiliac joint injection Medications: Bupivacaine 0.25% 3cc, kenalog 40mg After informed consent was obtained, the patient was brought to the medical procedure unit and placed in the prone position, when a timeout was completed verifying correct patient, procedure, site, positioning, implant, and/or special equipment.? The skin overlying the area was prepped and draped in standard sterile fashion using alcohol.? A 25-gauge needle was inserted towards the right sacroiliac joint under direct fluoroscopic imaging.? Needle tip was advanced until the joint was encountered.? We instilled a total of 2 mL of solution.? Postoperatively needles were removed.? The patient tolerated the procedure well without complication.? The patient reported reduction in pain symptoms postoperatively. Anesthesia: Local Surgeon: Kulwant García Pathology: none sent Condition: stable Disposition: no change
== END 2024-05-15 11:26 | disposition home or self-care (01) ==
LOC: SURGOUT 10:04
PROVIDERS: PCP Family Medicine; Visit Provider Anesthesiology
DX: M46.1 Sacroiliitis, not elsewhere classified (principal)
CPT/HCPCS: 27096; J0665; J3301; Q9966

== ENCOUNTER 2024-06-07 08:55 | Outpatient (OUT) | payer MEDICARE, SELFPAY ==
--- NOTE | 2024-06-07 08:58 | P.CN_ITS ---
Consult Note: HPI Data of Consult Patient: known to practice within the last 3 years Consult date: 04/03/24 Requesting Physician: Shaneka Llanes NP Primary Care Provider: FERNIE LEONG Consult Narrative Reason for consult: low back, right leg pain Narrative: 78yof who presents for assessment. worsening pain and weakness into right lower extremity. imaging consistent with severe stenosis at l4-5 and l5-s1. previously had lumbar tfesi, which helped significantly, but then patient fell shortly thereafter and fractured right hip, which required surgical intervention. continues in a series of provider directed home exercises >6 weeks, without lasting benefit. uses tramadol 25mg BID PRN and tylenol PRN, noticed dizziness with 50mg BID PRN. recently underwent right L4-5 L5-S1 TFESI with 75% improvement in pain and functional ability ongoing and right SIJ injection with >50% improvement ongoing cc:: CC: Shaneka Llanes NP Review of Systems ROS Status of ROS 10 or more systems reviewed and unremark able except as noted in history and below Musculoskeletal Reports: back pain and joint pain PFSH PFSH Medical History Essential (primary) hypertension ?I10 - Essential (primary) hypertension (ICD-10) Vertigo ?R42 - Dizziness and giddiness (ICD-10) Sinus arrhythmia seen on electrocardiogram ?I49.8 - Other specified cardiac arrhythmias (ICD-10) Hypothyroid ?E03.9 - Hypothyroidism, unspecified (ICD-10) Sacroiliac dysfunction ?M53.3 - Sacrococcygeal disorders, not elsewhere classified (ICD-10) Lumbar spondylosis ?M47.816 - Spondylosis without myelopathy or radiculopathy, lumbar region (ICD-10) Lumbar stenosis with neurogenic claudication ?M48.062 - Spinal stenosis, lumbar region with neurogenic claudication (ICD- 10) DDD (degenerative disc disease), lumbar ?M51.36 - Other intervertebral disc degeneration, lumbar region (ICD-10) Low back pain ?M54.50 - Low back pain, unspecified (ICD-10) Irregular heartbeat ?I49.9 - Cardiac arrhythmia, unspecified (ICD-10) Acid reflux ?K21.9 - Gastro-esophageal reflux disease without esophagitis (ICD-10) Rheumatoid arthritis ?M06.9 - Rheumatoid arthritis, unspecified (ICD-10) Osteoarthritis ?M19.90 - Unspecified osteoarthritis, unspecified site (ICD-10) Hearing deficit ?H91.90 - Unspecified hearing loss, unspecified ear (ICD-10) Hypertension ?I10 - Essential (primary) hypertension (ICD-10) High cholesterol ?E78.00 - Pure hypercholesterolemia, unspecified (ICD-10) Family History Father Family history of hypertension Family history of stroke Mother Family history of hypertension Family history of myocardial infarction, Onset Age: 45 Social History Within the past year, how often did you have a drink containing alcohol: monthly or less Within the past year, how often did you have six or more drinks on one occasion: never Smoking status: Never smoker Non-prescribed substance use: denies use 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 Known occupational exposures/hazards: No Highest level of school completed/degree received: Master's degree Are you now , , , , never or living with a partner: In a typical week, how many times do you talk on the telephone with family, friends, or neighbors: twice per week How often do you get together with friends or relatives: twice per week How often do you attend congregational or judaism services: 4 or more times per year Little interest or pleasure in doing things: not at all Feeling down, depressed, or hopeless: not at all Feel stressed/tense/nervous/anxious/difficulty sleeping: only a little Life stressor details: medical issues Gender Identity: female Meds Home Medications and Allergies Home Medications ?Medication ?Instructions ?Recorded ?Confirmed ?Type atorvastatin 10 mg tablet 10 mg PO DAILY 07/29/23 05/15/24 History levothyroxine 75 mcg tablet 75 mcg PO DAILY 07/29/23 05/15/24 History metoprolol succinate 25 mg 25 mg PO DAILY 07/29/23 05/15/24 History tablet,extended release 24 hr omeprazole 40 mg capsule,delayed 40 mg PO DAILY 07/29/23 05/15/24 History release acetaminophen 500 mg tablet 1,000 mg PO Q6H PRN pain 09/13/23 05/15/24 History (Tylenol Extra Strength) meclizine 25 mg tablet 25 mg PO BID 09/13/23 10/07/23 History fluticasone propionate 50 2 spray intranasal QD #16 grams 10/12/23 05/15/24 Rx mcg/actuation nasal spray,suspension hydrocodone 5 mg-acetaminophen 325 1 tab PO Q4H PRN Pain Scale 4-6 10/12/23 04/17/24 Rx mg tablet #20 tabs hydrocodone 5 mg-acetaminophen 325 2 tab PO Q4H PRN Pain Scale 7-10 10/12/23 05/15/24 Rx mg tablet #20 tabs meclizine 25 mg tablet 25 mg PO TID PRN dizziness #30 tabs 10/12/23 05/15/24 Rx tramadol 50 mg tablet 50 mg PO BID PRN pain #60 tabs 04/14/24 05/15/24 Rx diazepam 5 mg tablet (Valium) 5 mg PO Q8H 04/17/24 05/15/24 History tramadol 50 mg tablet 50 mg PO BID PRN pain #60 tabs 05/11/24 Rx Allergies Allergy/AdvReac Type Severity Reaction Status Date / Time No Known Drug Allergies Allergy Verified 05/15/24 10:56 Exam Back & Pelvis Lumbar spine/lower back: ROM limited and straight leg raise negative bilaterally; no pain with ROM Sacroiliac joints: SI joints normal Other: strength 4/5 in BLE Results Additional Findings Additional findings: If on a controlled substance or opioids, I have checked an [place] report on this patient and there are no aberrancies noted in the prescribing history.??If on a controlled substance or opioid a drug screen was completed and reviewed within the last year, and if there has not been a drug screen completed we ordered one today to monitor higher risk, state monitored pain medication use. As part of providing excellent, safe, comprehensive care, the following was completed at our patient's visit: 1. A medication reconciliation and review to ensure accurate knowledge of current/active medications, including asking our patients to inform us about any [id number] medications or herbal remedies/nutritional supplements/alternative remedies. 2. A review to specifically ensure our patients have had annual screening for screening for depression, screening for tobacco use, and screening for unhealthy alcohol use. For concerning screenings had a discussion with the patient, provided patient education, and recommended follow-up with primary care provider when appropriate. If patient noted with a risk of falling, they received education on strength, gait, and balance training to prevent future risk of falling. Assessment and Plan Assessment and Plan (1) Lumbar stenosis with neurogenic claudication: (2) Sacroiliac joint dysfunction of right side: (3) Lumbar spondylosis: (4) DDD (degenerative disc disease), lumbar: (5) Osteoarthritis: (6) Rheumatoid arthritis: Qualifiers: Rheumatoid factor presence: unspecified presence (7) Chronic use of opiate drug for therapeutic purpose: Plan decrease tramadol 25mg BID PRN moderate to severe pain continue PRN tylenol continue PT f/u 3 months, sooner if needed
== END 2024-06-07 08:56 ==
LOC: PM 08:56
PROVIDERS: PCP Family Medicine; Visit Provider Nurse Practitioner
DX: M48.062 Spinal stenosis, lumbar region with neurogenic claudication (principal); M53.3 Sacrococcygeal disorders, not elsewhere classified; M47.816 Spondylosis without myelopathy or radiculopathy, lumbar region; M51.369 Other intervertebral disc degeneration, lumbar region without mention of lumbar back pain or lower extremity pain; M19.90 Unspecified osteoarthritis, unspecified site; M06.9 Rheumatoid arthritis, unspecified; Z79.891 Long term (current) use of opiate analgesic
CPT/HCPCS: G0463

== ENCOUNTER 2024-08-31 09:49 | Outpatient (OUT) | payer MEDICARE, SELFPAY ==
--- NOTE | 2024-08-31 10:04 | PM.CN ---
Consult Note: HPI Data of Consult Patient: known to practice within the last 3 years Requesting Physician: Shaneka Llanes NP Primary Care Provider: FERNIE LEONG Consult Narrative Reason for consult: low back, right leg pain Narrative: 78yof who presents for assessment. worsening pain and weakness into right lower extremity. imaging consistent with severe stenosis at l4-5 and l5-s1. previously had lumbar tfesi, which helped significantly, but then patient fell shortly thereafter and fractured right hip, which required surgical intervention. continues in a series of provider directed home exercises >6 weeks, without lasting benefit. uses tramadol 25mg QID PRN and tylenol PRN, noticed dizziness with 50mg BID PRN. recently underwent right L4-5 L5-S1 TFESI with >50% improvement in pain and functional ability ongoing and right SIJ injection with >50% improvement ongoing. pain well controlled with interventional therapy and medications. LEANDRO 27%. denies side effects from current medication regimen. pain today 4/10 increasing to 5/10 at the worst. cc:: CC: Shaneka Llanes NP Review of Systems ROS Status of ROS 10 or more systems reviewed and unremarkable except as noted in history and below Musculoskeletal Reports: back pain and joint pain PFSH PFSH Medical History Essential (primary) hypertension ?I10 - Essential (primary) hypertension (ICD-10) Vertigo ?R42 - Dizziness and giddiness (ICD-10) Sinus arrhythmia seen on electrocardiogram ?I49.8 - Other specified cardiac arrhythmias (ICD-10) Hypothyroid ?E03.9 - Hypothyroidism, unspecified (ICD-10) Sacroiliac dysfunction ?M53.3 - Sacrococcygeal disorders, not elsewhere classified (ICD-10) Lumbar spondylosis ?M47.816 - Spondylosis without myelopathy or radiculopathy, lumbar region (ICD-10) Lumbar stenosis with neurogenic claudication ?M48.062 - Spinal stenosis, lumbar region with neurogenic claudication (ICD-10) DDD (degenerative disc disease), lumbar ?M51.36 - Other intervertebral disc degeneration, lumbar region (ICD-10) Low back pain ?M54.50 - Low back pain, unspecified (ICD-10) Irregular heartbeat ?I49.9 - Cardiac arrhythmia, unspecified (ICD-10) Acid reflux ?K21.9 - Gastro-esophageal reflux disease without esophagitis (ICD-10) Rheumatoid arthritis ?M06.9 - Rheumatoid arthritis, unspecified (ICD-10) Osteoarthritis ?M19.90 - Unspecified osteoarthritis, unspecified site (ICD-10) Hearing deficit ?H91.90 - Unspecified hearing loss, unspecified ear (ICD-10) Hypertension ?I10 - Essential (primary) hypertension (ICD-10) High cholesterol ?E78.00 - Pure hypercholesterolemia, unspecified (ICD-10) Family History Father Family history of hypertension Family history of stroke Mother Family history of hypertension Family history of myocardial infarction, Onset Age: 45 Social History Within the past year, how often did you have a drink containing alcohol: monthly or less Within the past year, how often did you have six or more drinks on one occasion: never Smoking status: Never smoker Non-prescribed substance use: denies use 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 Known occupational exposures/hazards: No Highest level of school completed/degree received: Master's degree Are you now , , , , never or living with a partner: In a typical week, how many times do you talk on the telephone with family, friends, or neighbors: twice per week How often do you get together with friends or relatives: twice per week How often do you attend yazidi or anglican services: 4 or more times per year Little interest or pleasure in doing things: not at all Feeling down, depressed, or hopeless: not at all Feel stressed/tense/nervous/anxious/difficulty sleeping: only a little Life stressor details: medical issues Gender Identity: female Meds Home Medications and Allergies Home Medications ?Medication ?Instructions ?Recorded ?Confirmed ?Type atorvastatin 10 mg tablet 10 mg PO DAILY 07/29/23 05/15/24 History levothyroxine 75 mcg tablet 75 mcg PO DAILY 07/29/23 05/15/24 History metoprolol succinate 25 mg 25 mg PO DAILY 07/29/23 05/15/24 History tablet,extended release 24 hr omeprazole 40 mg capsule,delayed 40 mg PO DAILY 07/29/23 05/15/24 History release acetaminophen 500 mg tablet 1,000 mg PO Q6H PRN pain 02/05/24 10/07/24 History (Tylenol Extra Strength) meclizine 25 mg tablet 25 mg PO BID 09/13/23 10/07/23 History fluticasone propionate 50 2 spray intranasal QD #16 grams 10/12/23 05/15/24 Rx mcg/actuation nasal spray,suspension hydrocodone 5 mg-acetaminophen 325 1 tab PO Q4H PRN Pain Scale 4-6 10/12/23 04/17/24 Rx mg tablet #20 tabs hydrocodone 5 mg-acetaminophen 325 2 tab PO Q4H PRN Pain Scale 7-10 10/12/23 05/15/24 Rx mg tablet #20 tabs meclizine 25 mg tablet 25 mg PO TID PRN dizziness #30 tabs 10/12/23 05/15/24 Rx tramadol 50 mg tablet 50 mg PO BID PRN pain #60 tabs 04/14/24 05/15/24 Rx diazepam 5 mg tablet (Valium) 5 mg PO Q8H 04/17/24 05/15/24 History tramadol 50 mg tablet 50 mg PO BID PRN pain #60 tabs 05/11/24 Rx tramadol 50 mg tablet 50 mg PO BID PRN pain #60 tabs 06/12/24 Rx tramadol 50 mg tablet 25 mg (1/2 x 50 mg) PO QID PRN 07/12/24 Rx pain #60 tabs Allergies Allergy/AdvReac Type Severity Reaction Status Date / Time No Known Drug Allergies Allergy Verified 05/15/24 10:56 Exam Constitutional Documenting provider has reviewed patient's vital signs: yes Common normals: no apparent distress, oriented x3, healthy appearing, alert and well nourished General appearance: cooperative [facility] [place] Common normals: normocephalic, hearing grossly normal bilaterally and moist oral mucous membranes Head and scalp: normocephalic Eye Common normals: PERRL Pupil: PERRL Neck & C-Spine Common normals: full ROM General: normal visual inspection Chest Common normals: inspection of chest normal Respiratory Common normals: normal respiratory effort, no retractions and no use of accessory muscles Back & Pelvis Lumbar spine/lower back: ROM limited and straight leg raise negative bilaterally; no pain with ROM Sacroiliac joints: SI joints normal Other: strength 4/5 in RLE 5/5 in LLE sensation intact BLE Neuro Common normals: oriented x3, CN's II-XII intact bilaterally, moves all extremities, no focal motor deficits, no sensory deficits noted and deep tendon reflexes 2+ bilaterally Sensorium/orientation: alert Gait (neuro): assistive device used cane Motor exam: no movement abnormalities noted Psych Common normals: mental status grossly normal, thought process normal, cooperative, affect normal, speech normal and activity/motor behavior normal Speech: normal speech Thought process: normal thought process Results Additional Findings Additional findings: If on a controlled substance or opioids, I have checked an [place] report on this patient and there are no aberrancies noted in the prescribing history.??If on a controlled substance or opioid a drug screen was completed and reviewed within the last year, and if there has not been a drug screen completed we ordered one today to monitor higher risk, state monitored pain medication use. As part of providing excellent, safe, comprehensive care, the following was completed at our patient's visit: 1. A medication reconciliation and review to ensure accurate knowledge of current/active medications, including asking our patients to inform us about any [id number] medications or herbal remedies/nutritional supplements/alternative remedies. 2. A review to specifically ensure our patients have had annual screening for screening for depression, screening for tobacco use, and screening for unhealthy alcohol use. For concerning screenings had a discussion with the patient, provided patient education, and recommended follow-up with primary care provider when appropriate. If patient noted with a risk of falling, they received education on strength, gait, and balance training to prevent future risk of falling. Portions of this note may have been carried over from the previous visit and updated as appropriate. Please note this office utilizes paper charting in addition to the electronic medical record. A list of current medications, vitals, and PMH is available there as the clinical staff outside of myself do not have access to [email or web address] charting during the clinic day operations. As part of providing quality comprehensive care the current medications, vitals, and PMH were reviewed in the paper chart. Assessment and Plan Assessment and Plan (1) Sacroiliac joint dysfunction of right side: (2) Chronic use of opiate drug for therapeutic purpose: (3) Lumbar stenosis with neurogenic claudication: (4) DDD (degenerative disc disease), lumbar: (5) Lumbar spondylosis: Plan continue current medications continue HEP as tolerated continue to utilize cane, no recent falls f/u 3 months, sooner if needed
--- OUTSIDE RECORDS SUMMARY | 2024-08-31 10:08 | XMS_ITS | CCD ---
Author Organization [facility] Care Team Providers Care Metallurgist Helper Name Role Phone Ap Holland Unavailable FABIENNE Briscoe Primary Care Provider MD Ap Holland Attending Provider [phone] Charles Hendricks Admitting Unavailable Charles Hendricks Attending Unavailable Roslyn Briscoe Primary Care Unavailable Ap Holland Admitting Unavailable Ap Holland Attending Unavailable Roslyn Briscoe Primary Care Unavailable Cynthia Leong MD Unavailable [phone] Libby Ward NP Unavailable Cynthia Leong MD Primary Care Provider Ricky AVALOS, Andrius Cross Attending Unavailable Ricky AVALOS, Andrius Cross Attending Unavailable Ricky AVALOS, Andrius Tay Attending Unavailable Ricky AVALOS, Andrius Tay Attending Unavailable Ricky AVALOS, Andrius Tay Attending Unavailable ANJALI MAK Attending Unavailable ANJALI MAK Attending Unavailable MARISSA BRISCOEIA A Attending Unavailab CYNTHIA López Attending Unavailable CYNTHIA LEONG Referring Unavailable CYNTHIA LEONG Attending Unavailable QIAN CLARK Attending Unavailable CYNTHIA LEONG Attending Unavailable DIVINA PARSON Attending Unavailable QIAN CLARK Referring Unavailable ALANA LOPEZ Attending Unavailable CYNTHIA LEONG Referring Unavailable NONI LANE Attending Unavailable QIAN CLARK Referring Unavailable ALANA LOPEZ Attending Unavailable CYNTHIA LEONG Referring Unavailable CASTELLANO, DIVINA L Attending Unavailable LOPEZ, ALANA Attending Unavailable CASTELLANO, DIVINA L Referring Unavailable LOPEZ, ALANA Attending Unavailable CASTELLANO, DIVINA L Referring Unavailable LOPEZ, ALANA Attending Unavailable CASTELLANO, DIVINA L Referring Unavailable STEFANO, MARIANO Attending Unavailable CASTELLANO, DIVINA L Referring Unavailable STEFANO, MARIANO Attending Unavailable CASTELLANO, DIVINA L Referring Unavailable STEFANO, MARIANO Attending Unavailable CASTELLANO, DIVINA L Referring Unavailable STEFANO, MARIANO Attending Unavailable CASTELLANO, DIVINA L Referring Unavailable CYNTHIA LEONG Attending Unavailable LOPEZ, ALANA Attending Unavailable CASTELLANO, DIVINA L Referring Unavailable LOPEZ, ALANA Attending Unavailable CASTELLANO, DIVINA L Referring Unavailable STEFANO, MARIANO Attending Unavailable CASTELLANO, DIVINA L Referring Unavailable STEFANO, MARIANO Attending Unavailable CASTELLANO, DIVINA L Referring Unavailable STEFANO, MARIANO Attending Unavailable CASTELLANO, DIVINA L Referring Unavailable LOPEZ, ALANA Attending Unavailable CASTELLANO, DIVINA L Referring Unavailable STEFANO, MARIANO Attending Unavailable CASTELLANO, DIVINA L Referring Unavailable STEFANO, MARIANO Attending Unavailable CASTELLANO, DIVINA L Referring Unavailable STEFANO, MARIANO Attending Unavailable CASTELLANO, DIVINA L Referring Unavailable LOPEZ, ALANA Attending Unavailable CASTELLANO, DIVINA L Referring Unavailable STEFANO, MARIANO Attending Unavailable CASTELLANO, DIVINA L Referring Unavailable LOPEZ, ALANA Attending Unavailable CASTELLANO, DIVINA L Referring Unavailable Allergies Allergy Classification Reported Allergen(s) Allergy Type Date of Onset Reaction(s) Facility (7 sources) Pollen Drug allergy Unknown fintonic Other (1 source) Pollen Drug allergy (disorder) 3 [facility] Repository (20 sources) Octacosanol Propensity to adverse reactions 3 [facility] Healthcare Medications Current Medications Medication Drug Class(es) Dates Sig (Normalized) Sig (Original) 8 hr acetaminophen 650 mg extended release oral tablet (20 sources) take 1 tablet by mouth every eight hours as needed for pain acetaminophen (Tylenol 8 Hour) 650 MG ER tablet Take 650 mg by mouth every 8 (eight) hours if needed for mild pain. Do not crush, chew, or split. Active amoxicillin 500 mg oral tablet (1 source) Penicillin-class Antibacterial Start: 06-07-2024 End: 10-30-2024 take 4 tablets by mouth once, then take 1 tablet by mouth every hour amoxicillin (Amoxil) 500 MG tablet Indications: Need for antibiotic prophylaxis for dental procedure Take 4 tablets (2,000 mg) by mouth 1 time for 1 dose Take 1 hour prior to procedure 4 tablet 06/07/2024 06/07/2024 Active atorvastatin 10 mg oral tablet (20 sources) HMG-CoA Reductase Inhibitor Start: 03-21-2024 take 1 tablet by mouth once daily atorvastatin (Lipitor) 10 MG tablet Indications: Mixed hyperlipidemia (CMS/HCC) Take 1 tablet (10 mg) by mouth 1 (one) time each day at the same time 100 tablet 1 03/21/2024 Active take 1 tablet by celi th every twenty-four hours Atorvastatin Calcium 10 MG 1 tablet Oral ly Once a day Active calcitriol 0.90388 mg oral capsule (20 sources) Vitamin D3 Analog take 1 capsule by mouth once daily calcitriol (Rocaltrol) 0.25 MCG capsule Take 0.25 mcg by mouth Daily Active cetirizine hydrochloride 10 mg oral tablet (20 sources) Histamine-1 Receptor Antagonist cetirizine (ZyrTEC) 10 MG tablet Take by mouth. Active cholecalciferol 0.025 mg oral capsule (20 sources) Vitamin D take 1 capsule by mouth once daily cholecalciferol (Vitamin D-3) 25 MCG (1000 UT) capsule Take 1,000 Units by mouth Daily Active diazePAM 5 mg oral tablet (20 sources) Benzodiazepine Start: diazePAM (Valium) 5 MG tablet TAKE 1 TABLET BY MOUTH PRIOR TO PROCEDURE 04/03/2024 Active escitalopram 5 mg oral tablet (20 sources) Serotonin Reuptake Inhibitor Start: End: take 1 tablet by mouth once daily escitalopram (Lexapro) 5 MG tablet Indications: Mild depression (CMS/HCC) Take 1 tablet (5 mg) by mouth Daily 30 tablet 11 01/04/2024 01/03/2025 Active levothyroxine sodium 0.075 mg oral tablet (20 sources) l-Thyroxine Start: take 1 tablet by mouth in the morning levothyroxine (Synthroid, Levoxyl) 75 MCG tablet Indications: Acquired hypothyroidism (CMS/HCC) Take 1 tablet (75 mcg) by mouth in the morning. Take on an empty stomach.. 90 tablet 1 07/31/2024 Active Start: 09-07-2023 End: 07-31-2024 take 1 tablet by mouth in the morning levothyroxine (Synthroid, Levoxyl) 75 MCG tablet Indications: Acquired hypothyroidism (CMS/HCC) Take 1 tablet (75 mcg) by mouth in the morning. Take on an empty stomach.. 90 tablet 1 09/07/2023 07/31/2024 Discontinued (Reorder) take 1 tablet by celi th once daily in the morning Levothyroxine Sodium 75 MCG 1 tablet in the morning on an empty stomach Orally Once a day Active lidocaine 0.05 mg/mg medicated patch (7 sources) Antiarrhythmic, Amide Local Anesthetic Lidocaine 5 % 1 patch remove after 12 hours Externally Once a day Active lisinopril 5 mg oral tablet (20 sources) Angiotensin Converting Enzyme Inhibitor Start: End: take 1 tablet by mouth once daily lisinopril 5 MG tablet Indications: Essential hypertension (CMS/HCC) Take 1 tablet (5 mg) by mouth Daily 30 tablet 1 07/31/2024 09/29/2024 Active meclizine hydrochloride 25 mg chewable tablet (20 sources) Antiemetic Start: End: take 1 tablet by mouth every twenty-four hours as needed for dizziness and dizziness Meclizine HCl 25 MG chewable tablet Indications: Dizziness Chew 25 mg Daily as needed (dizziness) for up to 20 days 20 tablet 1 07/31/2024 08/20/2024 Active Start: 06-13-2024 End: 07-31-2024 take 1 tablet by mouth every twelve hours Meclizine HCl 25 MG chewable tablet Indications: Dizziness chew & swallow ONE TABLET BY MOUTH EVERY 12 HOURS 60 tablet 06/13/2024 07/31/2024 Discontinued (Reorder) Start: 02-08-2024 take 1 tablet by celi th every twelve hours for dizziness and dizziness Meclizine HCl 25 MG chewable tablet Indications: Dizziness Chew 25 mg every 12 (twelve) hours 60 tablet 1 02/08/2024 Active 24 hr metoprolol succinate 25 mg extended release oral tablet (20 sources) beta-Adrenergic Abhishek Start: 07-31-2024 take 1 tablet by mouth every twenty-four hours in the morning metoprolol succinate XL (Toprol-XL) 25 MG 24 hr tablet Indications: Essential hypertension (CMS/HCC) Take 1 tablet (25 mg) by mouth in the morning. 90 tablet 1 07/31/2024 Active Start: 06-13-2024 End: 07-31-2024 take 1 tablet by mouth every twenty-four hours in the morning metoprolol succinate XL (Toprol-XL) 25 MG 24 hr tablet Indications: Essential hypertension (CMS/HCC) Take 1 tablet (25 mg) by mouth in the morning. 90 tablet 06/13/2024 07/31/2024 Discontinued (Reorder) Start: 01-25-2024 End: 06-13-2024 take 1 tablet by mouth once daily in the morning metoprolol succinate XL (Toprol-XL) 25 MG 24 hr tablet Indications: Essential hypertension (CMS/HCC) take 1 tablet by mouth every morning 90 tablet 01/25/2024 06/13/2024 Discontinued (Reorder) take 1 capsule by [facility] once daily Metoprolol Succinate 50 MG 1 capsule Orally Once a day Active nitrofurantoin, macrocrystals 25 mg / nitrofurantoin, monohydrate 75 mg oral capsule (5 sources) Nitrofuran Antibacterial Start: 05-22-2024 End: 05-29-2024 take 1 capsule by mouth in the morning nitrofurantoin, macrocrystal-monohydrate, (Macrobid) 100 MG capsule Indications: Acute cystitis without hematuria Take 1 capsule (100 mg) by mouth in the morning and 1 capsule (100 mg) before bedtime. Do all this for 7 days. 14 capsule 05/22/2024 05/29/2024 Active omeprazole 40 mg delayed release oral capsule (20 sources) Proton Pump Inhibitor Start: 01-25-2024 End: 05-17-2024 take 1 capsule by mouth in the morning omeprazole (PriLOSEC) [address] capsule Indications: Gastroesophageal reflux disease without esophagitis Take 1 capsule (40 mg) by mouth in the morning. 90 capsule 1 05/17/2024 Active take 1 capsule by mouth once kim ly Omeprazole 40 MG 1 capsule 30 minutes before morning meal Orally Once a day Active traMADol hydrochloride 50 mg oral tablet (20 sources) Opioid Agonist Start: 06-15-2024 take 1 tablet by mouth twice daily as needed traMADol (Ultram) 50 MG tablet Take 50 mg by mouth 2 (two) times a day as needed 06/15/2024 Active vitamin b12 1 mg/ml injectable solution (20 sources) Vitamin B12 Start: 11-19-2023 End: 11-18-2024 Cyanocobalamin (B-12 Compliance Injection) 1000 MCG/ML kit Indications: B12 deficiency Inject 1 mL as directed every 30 (thirty) days 1 kit 11 11/19/2023 11/18/2024 Active Problems Active Problems Problem Classification Problem Date Documented Date Episodic/Chronic Adjustment disorders (20 sources) Family tension; Translations: [Reaction to severe stress, unspecified] Onset: 09-18-2016 01-01-2023 Chronic Coagulation and hemorrhagic disorders (20 sources) Platelet count below reference range; Translations: [Thrombocytopenia, unspecified] Onset: 01-01-2023 01-01-2023 Chronic Deficiency and other anemia (2 sources) Anemia; Translations: [Anemia, unspecified] 06-22-2024 Episodic Disorders of lipid metabolism (20 sources) Mixed hyperlipidemia; Translations: [Mixed hyperlipidemia] Onset: 10-15-2016 01-01-2023 Chronic Esophageal disorders (20 sources) Gastroesophageal reflux disease without esophagitis; Translations: [Gastro-esophageal reflux disease without esophagitis] Onset: 11-24-2017 05-17-2024 Chronic Essential hypertension (20 sources) Essential hypertension; Translations: [Essential (primary) hypertension] Onset: 10-15-2016 01-01-2023 Chronic Genitourinary symptoms and ill-defined conditions (2 sources) Dysuria; Translations: [Dysuria] 05-18-2024 Episodic Nutritional deficiencies (20 sources) Vitamin D deficiency; Translations: [Vitamin D deficiency, unspecified] Onset: 12-02-2018 01-01-2023 Chronic Osteoarthritis (8 sources) Localized, primary osteoarthritis of the pelvic region and thigh; Translations: [Unilateral primary osteoarthritis, right hip] Chronic Other connective tissue disease (20 sources) Cramp in lower limb; Translations: [Sleep related leg cramps] Onset: 01-01-2023 01-01-2023 Chronic Other ear and sense organ disorders (20 sources) Sensorineural hearing loss, bilateral; Translations: [Sensorineural hearing loss, bilateral] Onset: 03-14-2024 03-14-2024 Chronic Other hereditary and degenerative nervous system conditions (20 sources) Restless legs; Translations: [Restless legs syndrome] Onset: 12-01-2018 01-01-2023 Chronic Other nervous system disorders (7 sources) Chronic pain; Translations: [Other chronic pain] Chronic Other nervous system disorders (4 sources) Other chronic pain Chronic Other non-traumatic joint disorders (1 source) Pain in right hip Episodic Spondylosis; intervertebral disc disorders; other back problems (20 sources) Solitary sacroiliitis; Translations: [Sacroiliitis, not elsewhere classified] Onset: 01-01-2023 Chronic Spondylosis; intervertebral disc disorders; other back problems (20 sources) Radiculopathy, lumbar region; Translations: [Lumbar radiculopathy] Episodic Thyroid disorders (20 sources) Hypothyroidism; Translations: [Hypothyroidism, unspecified] Onset: 05-11-2016 01-01-2023 Chronic Unclassified (1 source) Pain in right hip; Translations: [Pain in right hip] Onset: 05-10-2023 Urinary tract infections (1 source) Acute cystitis; Translations: [Acute cystitis without hematuria] 05-22-2024 Episodic Past or Other Problems Problem Classification Problem Date Documented Date Episodic/Chronic Conditions associated with dizziness or vertigo (20 sources) Vertigo; Translations: [Dizziness and giddiness] Onset: 11-16-2023 11-16-2023 Episodic E Codes: Fall (20 sources) Fall; Translations: [Unspecified fall, initial encounter] Onset: 11-16-2023 11-16-2023 Episodic Fracture of neck of femur (hip) (20 sources) Closed fracture of neck of femur; Translations: [Fracture of unspecified part of neck of unspecified femur, initial encounter for closed fracture] Onset: 11-16-2023 11-16-2023 Episodic Mood disorders (20 sources) Mood disorders Onset: 09-02-2023 09-02-2023 Nutritional deficiencies (20 sources) Cobalamin deficiency; Translations: [Deficiency of other specified B group vitamins] Onset: 01-08-2014 Resolved: 01-01-2023 01-01-2023 Episodic Other connective tissue disease (20 sources) Cramp in lower leg associated with rest; Translations: [Cramp and spasm] Onset: 12-01-2018 Resolved: 08-03-2023 08-03-2023 Episodic Other hereditary and degenerative nervous system conditions (20 sources) Finding of scapular structure; Translations: [Other specified extrapyramidal and movement disorders] Onset: 12-07-2019 Resolved: 08-03-2023 08-03-2023 Chronic Results Test Name Value Interpretation Reference Range Facility CBC W Auto Differential pane l (Bld)on 06-23-2024 Basophils (Bld) [#/Vol] 11 10*3/uL [facility] Basophils/100 WBC (Bld) 0.3 % [facility] Eosinophils (Bld) [#/Vol] 68 10*3/uL [facility] Eosinophils/100 WBC (Bld) 1.9 % [facility] Erythrocyte distribution width (RBC) [Ratio] 13 % 11.0 - 15.0 % [facility] Hematocrit (Bld) [Volume fraction] 33.6 % Low 35.0 - 45.0 % [facility] (Bld) [Mass/Vol] 11.9 g/dL 11.7 - 15.5 g/dL [facility] Lymphocytes (Bld) [#/Vol] 486 10*3/uL Low [facility] Lymphocytes/100 WBC (Bld) 13.5 % [facility] MCH (RBC) [Entitic mass] 36.5 pg High 27.0 - 33.0 pg [facility] MCHC (RBC) [Mass/Vol] 35.4 g/dL 32.0 - 36.0 g/dL [facility] Comment on above: For adults, a slight decrease in the calculated MCHC value (in the range of 30 to 32 g/dL) is most likely not clinically significant; however, it should be interpreted with caution in correlation with other red cell parameters and the patient's clinical condition. MCV (RBC) [Entitic vol] 103.1 fL High 80.0 - 100.0 fL [facility] Monocytes (Bld) [#/Vol] 508 10*3/uL [facility] Monocytes/100 WBC (Bld) 14.1 % [facility] Neutrophils (Bld) [#/Vol] 2527 10*3/uL [facility] Neutrophils/100 WBC (Bld) 70.2 % [facility] Platelet mean volume (Bld) [Entitic vol] 10.5 fL 7.5 - 12.5 fL [facility] Platelets (Bld) [#/Vol] 96 10*3/uL Low [facility] RBC (Bld) [#/Vol] 3.26 10*6/uL Low [facility] WBC (Bld) [#/Vol] 3.6 10*3/uL Low [facility] Chemistry and C hemistry - challengeon 06-23-2024 Albumin [Mass/Vol] 3.6 g/dL 3.6 - 5.1 g/dL [facility] Albumin/Globulin [Mass ratio] 1.6 {ratio} [facility] ALP [Catalytic activity/Vol] 72 U/L 37 - 153 U/L [facility] ALT [Catalytic activity/Vol] 23 U/L 6 - 29 U/L [facility] AST [Catalytic activity/Vol] 20 U/L 10 - 35 U/L [facility] Bilirubin [Mass/Vol] 0.7 mg/dL 0.2 - 1 .2 mg/dL [facility] Calcium [Mass/Vol] 9.2 mg/dL 8.6 - 10. 4 mg/dL [facility] Chloride [Moles/Vol] 103 mmol/L 98 - 11 0 mmol/L [facility] CO2 [Moles/Vol] 29 mmol/L 20 - 32 mmol/L [facility] Cobalamin (Vitamin B12) [Mass/Vol] 222 pg/mL 200 - 1100 pg/mL [facility] Comment on above: Please Note: Although the reference range for vitamin B12 is 200-1100 pg/mL, it has been reported that between 5 and 10% of patients with values between 200 and 400 pg/mL may experience neuropsychiatric and hematologic abnormalities due to occult B12 deficiency; less than 1% of patients with values above 400 pg/mL will have symptoms. Creatinine [Mass/Vol] 0.98 mg/dL High 0.60 - 0.95 mg/dL [facility] GFR/1.73 sq M.predicted among non-blacks MDRD (S/P/Bld) [Vol rate/Area] 58 mL/min/{1.73_m2} Low > OR = 60 mL/min/1.73m2 [facility] Globulin (S) [Mass/Vol] 2.2 g/dL [facility] Glucose [Mass/Vol] 146 mg/dL High 65 - 99 mg/dL [facility] Comment on above: Fasting reference interval For someone without known diabetes, a glucose value >125 mg/dL indicates that they may have diabetes and this should be confirmed with a follow-up test. Potassium [Moles/Vol] 3.6 mmol/L 3.5 - 5.3 mmol/L [facility] Protein [Mass/Vol] 5.8 g/dL Low 6.1 - 8.1 g/dL [facility] Sodium [Moles/Vol] 138 mmol/L 135 - 146 mmol/L [facility] TSH Qn 2.26 m[IU]/L [facility] Urea nitrogen [Mass/Vol] 27 mg/dL High 7 - 25 mg/dL [facility] Urea nitrogen/Creatinine [Mass ratio] 28 mg/mg High [facility] Lipid 1996 panelon Cholesterol [Mass/Vol] 174 mg/dL [facility] - 200 mg/dL [facility] Cholesterol in HDL [Mass/Vol] 61 mg/dL > OR = 50 [facility] Cholesterol in LDL [Mass/Vol] 86 mg/dL mg/dL (calc) [facility] Comment on above: Reference range: <10 0 Desirable range <100 mg/dL for primary prevention; <70 mg/dL for patients with CHD or diabetic patients with > or = 2 CHD risk factors. LDL-C is now calculated using the Georgi-Levy calculation, which is a validated novel method providing better accuracy than the Friedewald equation in the estimation of LDL-C. Georgi SOSA et al. CLAUDIA. 2013;310(19): 7478-3390 (http://education.[employer].L[employer] Sports/faq/OSJ776) Cholesterol non HDL [Mass/Vol] 113 mg/dL [facility] Comment on above: For patients with di abetes plus 1 major ASCVD risk factor, treating to a non-HDL-C goal of <100 mg/dL (LDL-C of <70 mg/dL) is considered a therapeutic option. Cholesterol.total/Ch olesterol in HDL [Mass ratio] 2.9 {ratio} [facility] Triglyceride [Mass/Vol] 168 mg/dL [facility]dL [facility] No Panel Informationon 06-23 Interpretation and review of laboratory results Abnormal [facility] Performing Organization Information Site ID: QPT Name: [employer] [facility] Address: [address] [place] [address], [address] [place] [address] Director: Juan Alberto Harrell MD [facility] Healthcare [facility] Urinalysis macro (dipstick) panel (U)on 05-18-2024 Bilirubin, UA Negative Negative - 4(70) +++ mg/dL [facility] Blood, UA Negative Negative - 50 Mikal/mcL [facility] Clarity, UA Cloudy [facility] re Color, UA Yellow [facility] Glucose, UA Negative Negative - 1999(110) ++++ mg/dL [facility] Ketones, UA Negative Negative - 160(16) ++++ mg/dL [facility] Leukocytes, UA Positive Negative - 500+++ Dustin/mcL [facility] Nitrite, UA Negative Negative - Positive [facility] pH, UA 5.0 5 - 9 [facility] Healthcar e Protein, UA Positive Negative - 1999(20) ++++ mg/dL [facility] Spec Grav, UA 1.005 1 - 1.03 [facility] Urobilinogen, UA 1.0 0.2 - 12 mg/dL [facility] US CAROTID ARTERY DUPLE X BILATERALon 11-17-2023 [facility] US CAROTID ARTERY DUPLEX BILATERAL EXAM: [facility] US CAROTID ARTERY DUPLEX BILATERAL DATE:11/17/2023 10:02 AM CLINICAL HISTORY: dizziness COMPARISON: None available. TECHNIQUE: Grayscale, color and waveform Doppler analysis of the cervical carotid and vertebral arteries was performed. Optimization of duplex velocity criteria for diagnosis of internal carotid artery (ICA) stenosis: A report of the Intersocietal Accreditation Commission (IAC) Vascular Testing Division Carotid Diagnostic Criteria Committee. Vascular Medicine 2020; https://journals.diandra pub.com/doi/full/10.1 177/6929594T166934726 FINDINGS: RIGHT ICA 84. Ratio 1.6 LEFT [...] Normal Not Available William 10-08-2023 L Specimen: [id number] Received: 10/11/23 Status: MAURI Ga Num: [id number] Spec Type: Surgical Subm Dr: Charles Hendricks Tissues: A Femoral Head - Fracture (RT HIP) Procedures: HE/2, Gross/Micro L4, Decalcification Age/ Patient Sex Location Account Attending Physician AgustoYvonne 77/F [facility] [id number] Charles Hendricks SPEC NUM: [id number] RECD: 10/11/23 STATUS: MAURI GA NUM: [id number] JAVI: 10/08/[address]: Charles Hendricks ENTERED: 10/11/[address]: Syd,Lab SPEC TYPE: Surgical DEPT: [facility]Z [...] of the femoral neck is xiong-red, trabecular. Case Aide are submitted following decalcification in 2 cassettes as follows: A1 - Femoral head A2 - Reamings from femoral neck CPT Codes 87204, 03069 -------- -------- Specimen: [id number] Received: 10/11/23 Status: MAURI Harmeet Num: [id number] Spec Type: Surgical Subm Dr: Charles Hendricks Tissues: A Femoral Head - Fracture (RT HIP) Procedures: HE/2, Gross/Micro L4, Decalcification -------- Patient: Franchesca Lize [id number] (Continued) -------- Signed (signature on file) Agatha Brantley MD 10/18/23 1944 Normal [facility] XR hip RT min 2V(w/wo pelvis )*on 05-10-2023 XR hip RT min 2V(w/wo pelvis)* [address] [address] XRay Report Signed Patient: Yvonne Liz MR#: [id number] 15 : 1945 Acct:[id number] Age/Sex: 77 / F ADM Date: 05/10/23 Loc: XD Room: Type: [facility] Attending Dr: Ap Holland MD Copies [...] Nick Stokes M.D.05/10/2023 3:23 PM Dictation Location: [place] [address] Transcribed By: [facility] 05/10/23 152 Dictated By: Nick Stokes DO 05/10/23 1521 Signed By: 05/10/23 1523 [facility] XR Spine Lumbar Complete w/F maxi AND [place] 12-10-2022 XR Spine Lumbar Complete w/Flex AND [...] by Roosevelt Motley on 12/10/2022 1457 Normal [facility] XR Hip Complete Right*on XR Hip Complete Right* HISTORY: Posterior hip radiating pain falls x 2 years FINDINGS: Mild bilateral superior medial hip joint space loss. No pincer or CAM deformities. Prominent arterial calcifications. IMPRESSION: 1. 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 Report reported and signed by Bonilla Mckeon on 04/29/2022 1031 Normal [facility] Specialist Complete Blood Count with Au to Diffon 01-13-2022 Basophils (Bld) [#/Vol] 0.06 10*3/uL Normal 0.00-0.20 [facility] Comment on above: Performed By: #### V ITD, CMP, TSH reflex FT4, CBCAD, FE Prof #### [facility] [address] [place], [place] [id number] Basophils/100 WBC (Bld) 1.3 % Normal [facility] Comment on above: Performed By: #### V ITD, CMP, TSH reflex FT4, CBCAD, FE Prof #### [facility] [address] [place], [place] [id number] Eosinophils (Bld) [#/Vol] 0.36 10*3/uL Normal 0.02-0.50 [facility] Comment on above: Performed By: #### V ITD, CMP, TSH reflex FT4, CBCAD, FE Prof #### [facility] [address] [place], [place] [id number] Eosinophils/100 WBC (Bld) 7.6 % Normal [facility] Comment on above: Performed By: #### V ITD, CMP, TSH reflex FT4, CBCAD, FE Prof #### [facility] [address] [place], [place] [id number] Erythrocyte distribution width (RBC) [Ratio] 12.1 % Normal 11.0-15.0 [facility] [facility] Comment on above: Performed By: #### V ITD, CMP, TSH reflex FT4, CBCAD, FE Prof #### [facility] [address] [place], [place] [id number] Hematocrit (Bld) [Volume fraction] 34.0 % Low 35.0-47.0 [facility] Specialist Comment on above: Performed By: #### V ITD, CMP, TSH reflex FT4, CBCAD, FE Prof #### [facility] [address] [place], [place] [id number] Hemoglobin (Bld) [Mass/Vol] 11.9 g/dL Normal 11.6-15.5 [facility] Specialist Comment on above: Performed By: #### V ITD, CMP, TSH reflex FT4, CBCAD, FE Prof #### [facility] [address] [place], [place] [id number] Lymphocytes (Bld) [#/Vol] 1.2 10*3/uL Normal 0.9-3.9 [facility] Specialist Comment on above: Performed By: #### V ITD, CMP, TSH reflex FT4, CBCAD, FE Prof #### [facility] [address] [place], [place] [id number] Lymphocytes/100 WBC (Bld) 26.1 % Normal [facility] Specialist Comment on above: Performed By: #### V ITD, CMP, TSH reflex FT4, CBCAD, FE Prof #### [facility] [address] [place], [place] [id number] MCH (RBC) [Entitic mass] 34.0 pg High 27.0-33.0 [facility] Specialist Comment on above: Performed By: #### V ITD, CMP, TSH reflex FT4, CBCAD, FE Prof #### [facility] [address] [place], [place] [id number] MCHC (RBC) [Mass/Vol] 35.0 g/dL Normal 32.0-36.0 [facility] Specialist Comment on above: Performed By: #### V ITD, CMP, TSH reflex FT4, CBCAD, FE Prof #### [facility] [address] [place], [place] [id number] MCV (RBC) [Entitic vol] 97 fL Normal 80-100 [facility] Specialist Comment on above: Performed By: #### V ITD, CMP, TSH reflex FT4, CBCAD, FE Prof #### [facility] [address] [place], [place] [id number] Monocytes (Bld) [#/Vol] 0.4 10*3/uL Normal 0.2-0.9 [facility] Specialist Comment on above: Performed By: #### V ITD, CMP, TSH reflex FT4, CBCAD, FE Prof #### [facility] [address] [place], [place] [id number] Monocytes/100 WBC (Bld) 8.9 % Normal [facility] Specialist Comment on above: Performed By: #### V ITD, CMP, TSH reflex FT4, CBCAD, FE Prof #### [facility] [address] [place], [place] [id number] Neutrophils (Bld) [#/Vol] 2.6 10*3/uL Normal 1.5-7.8 [facility] Specialist Comment on above: Performed By: #### V ITD, CMP, TSH reflex FT4, CBCAD, FE Prof #### [facility] [address] [place], [place] [id number] Neutrophils/100 WBC (Bld) 55.9 % Normal [facility] Specialist Comment on above: Performed By: #### V ITD, CMP, TSH reflex FT4, CBCAD, FE Prof #### [facility] [address] [place], [place] [id number] Platelet mean volume (Bld) [Entitic vol] 11.00 fL Normal 7.50-12.50 [facility] Comment on above: Performed By: #### V ITD, CMP, TSH reflex FT4, CBCAD, FE Prof #### [facility] [address] [place], [place] [id number] Platelets (Bld) [#/Vol] 102 10*3/uL Low 140-400 [facility] Specialist Comment on above: Performed By: #### V ITD, CMP, TSH reflex FT4, CBCAD, FE Prof #### [facility] [address] [place], [place] [id number] RBC (Bld) [#/Vol] 3.50 10*6/uL Low 3.90-5.20 [facility] Specialist Comment on above: Performed By: #### V ITD, CMP, TSH reflex FT4, CBCAD, FE Prof #### [facility] [address] [place], [place] [id number] RDW-SD 42.1 fL Normal 37.0-50.0 [facility] Specialist Comment on above: Performed By: #### V ITD, CMP, TSH reflex FT4, CBCAD, FE Prof #### [facility] [address] [place], [place] [id number] WBC (Bld) [#/Vol] 4.7 10*3/uL Normal 3.8-11.0 [place] [employer] [facility] Specialist Comment on above: Performed By: #### V ITD, CMP, TSH reflex FT4, CBCAD, FE Prof #### [facility] [address] [place], [place] [id number] Comprehensive Metabolic Pane william 01-13-2022 Albumin [Mass/Vol] 4.2 g/dL Normal 3.6-5.1 [place] [employer] Specialist Comment on above: Performed By: #### V ITD, CMP, TSH reflex FT4, CBCAD, FE Prof #### [facility] [address] [place], [place] [id number] Albumin/Globulin [Mass ratio] 1.8 {ratio} Normal 1.0-2.5 [facility] [employer] Specialist Comment on above: Performed By: #### V ITD, CMP, TSH reflex FT4, CBCAD, FE Prof #### [facility] [address] [place], [place] [id number] ALP [Catalytic activity/Vol] 83 U/L Normal 35-119 [facility] [employer] Specialist Comment on above: Performed By: #### V ITD, CMP, TSH reflex FT4, CBCAD, FE Prof #### [facility] [address] [place], [place] [id number] ALT [Catalytic activity/Vol] 28 U/L Normal 6-33 [facility] [employer] Specialist Comment on above: Result Comment: 07/09 Female reference range changed. Performed By: #### V ITD, CMP, TSH reflex FT4, CBCAD, FE Prof #### [facility] [address] [place], [place] [id number] Anion gap [Moles/Vol] 12 mmol/L Normal 12-20 [facility] [employer] Specialist Comment on above: Result Comment: Effe ctive 08/14/2019 reference range changed. Performed By: #### V ITD, CMP, TSH reflex FT4, CBCAD, FE Prof #### [facility] [address] [place], [place] [id number] AST [Catalytic activity/Vol] 36 U/L High 9-34 [place] [employer] [employer] Specialist Comment on above: Performed By: #### V ITD, CMP, TSH reflex FT4, CBCAD, FE Prof #### [facility] [address] [place], [place] [id number] Bilirubin [Mass/Vol] 0.48 mg/dL Normal 0.30-1.20 [facility] Comment on above: Performed By: #### V ITD, CMP, TSH reflex FT4, CBCAD, FE Prof #### [facility] [address] [place], [place] [id number] BUN/CREA 19 Ratio Normal 6-22 [facility] Specialist Comment on above: Performed By: #### V ITD, CMP, TSH reflex FT4, CBCAD, FE Prof #### [facility] [address] [place], [place] [id number] Calcium [Mass/Vol] 9.5 mg/dL Normal 8.6-10.2 [facility] Comment on above: Performed By: #### V ITD, CMP, TSH reflex FT4, CBCAD, FE Prof #### [facility] [address] [place], [place] [id number] Chloride [Moles/Vol] 105 mmol/L Normal 98-107 [facility] Specialist Comment on above: Performed By: #### V ITD, CMP, TSH reflex FT4, CBCAD, FE Prof #### [facility] [address] [place], [place] [id number] CO2 [Moles/Vol] 27 mmol/L Normal 20-31 [facility] Specialist Comment on above: Performed By: #### V ITD, CMP, TSH reflex FT4, CBCAD, FE Prof #### [facility] [address] [place], [place] [id number] Creatinine [Mass/Vol] 1.0 mg/dL Normal 0.6-1.4 [facility] Specialist Comment on above: Performed By: #### V ITD, CMP, TSH reflex FT4, CBCAD, FE Prof #### [facility] [address] [place], [place] [id number] eGFRAA 67 mL/min/1.73m2 Normal >60 [facility] [employer] Specialist Comment on above: Performed By: #### V ITD, CMP, TSH reflex FT4, CBCAD, FE Prof #### [facility] [address] [place], [place] [id number] eGFRNAA 55 mL/min/1.73m2 Low >60 [facility] [employer] Specialist Comment on above: Performed By: #### V ITD, CMP, TSH reflex FT4, CBCAD, FE Prof #### [facility] [address] [place], [place] [id number] Globulin (S) [Mass/Vol] 2.3 g/dL Normal 1.9-3.7 [facility] [employer] Specialist Comment on above: Performed By: #### V ITD, CMP, TSH reflex FT4, CBCAD, FE Prof #### [facility] [address] [place], [place] [id number] Glucose [Mass/Vol] 85 mg/dL Normal 65-99 [facility] [employer] [employer] Specialist Comment on above: Result Comment: For FASTING Glucose --- ADA reference ranges: Normal 65-99 mg/dl Prediabetes 100-125 Diabetes >/= 126 Performed By: #### V ITD, CMP, TSH reflex FT4, CBCAD, FE Prof #### [facility] [address] [place], [place] [id number] Potassium [Moles/Vol] 3.8 mmol/L Normal 3.5-5.5 [facility] [employer] Specialist Comment on above: Performed By: #### V ITD, CMP, TSH reflex FT4, CBCAD, FE Prof #### [facility] [address] [place], [place] [id number] Protein [Mass/Vol] 6.5 g/dL Normal 6.1-8.1 [place] [employer] Specialist Comment on above: Performed By: #### V ITD, CMP, TSH reflex FT4, CBCAD, FE Prof #### [facility] [address] [place], [place] [id number] Sodium [Moles/Vol] 140 mmol/L Normal 135-146 [place] [employer] [employer] [facility] Specialist Comment on above: Performed By: #### V ITD, CMP, TSH reflex FT4, CBCAD, FE Prof #### [facility] [address] [place], [place] [id number] Urea nitrogen [Mass/Vol] 19 mg/dL Normal 7-25 [facility] [employer] Specialist Comment on above: Performed By: #### V ITD, CMP, TSH reflex FT4, CBCAD, FE Prof #### [facility] [address] [place], [place] [id number] Iron Profileon 01-13-2022 %FESAT 45 % Normal 11-50 [facility] Specialist Comment on above: Performed By: #### V ITD, CMP, TSH reflex FT4, CBCAD, FE Prof #### [facility] [address] [place], [place] [id number] FE 129 ug/dL Normal 40-190 [facility] Specialist Comment on above: Result Comment: Refe rence range change 06/25/2017. Prior reference range F 37-145 ug/dL, M 59-158 ug/dL. Performed By: #### V ITD, CMP, TSH reflex FT4, CBCAD, FE Prof #### [facility] [address] [place], [place] [id number] TIBC 284 ug/dL Normal 250-450 [facility] Specialist Comment on above: Performed By: #### V ITD, CMP, TSH reflex FT4, CBCAD, FE Prof #### [facility] [address] [place], [place] [id number] UIBC 155 ug/dL Normal 112-347 [facility] [employer] Specialist Comment on above: Performed By: #### V ITD, CMP, TSH reflex FT4, CBCAD, FE Prof #### [facility] [address] [place], [place] [id number] TSH w/ Reflex to Free T4on 0 01-13-2022 TSH 3.100 uIU/mL Normal 0.400-4.500 [facility] [employer] Specialist Comment on above: Performed By: #### V ITD, CMP, TSH reflex FT4, CBCAD, FE Prof #### [facility] [address] [place], [place] [id number] US Venous, Bilateral, [place] 01-13-2022 US Venous, Bilateral, Lower Ext HISTORY: [...] by Bonilla Mckeon on 01/13/2022 1441 Normal [facility] Specialist Vitamin B12/Folateon 022 Cobalamin (Vitamin B12) [Mass/Vol] 258 pg/mL Normal 211-946 [facility] [employer] Specialist Comment on above: Performed By: #### B 12/Fol #### [facility] [address] [place], [place] [id number] FOL 11.6 ng/mL Normal >4.7 [facility] Specialist Comment on above: Result Comment: Refe rence range change 06/25/2017. Prior reference range F 4.8-37.3 ng/mL, M 4.5-32.2 ng/mL. Performed By: #### B 12/Fol #### [facility] [address] [place], [place] [id number] Vitamin D 25-OHon 01-13-2022 VIT D 25 OH 30 ng/ml Normal >29 [facility] Specialist Comment on above: Result Comment: Ching min D Status Deficiency <20 ng/mL Insufficiency 20-29 ng/mL Optimal 30-100 ng/mL Possible Toxicity >=150 ng/mL Performed By: #### V ITD, CMP, TSH reflex FT4, CBCAD, FE Prof #### [facility] [address] [place], [place] [id number] Vital Signs Date Time Vital Sign Value Performing Clinician Facility 06-22-2024 16:17-0500 Body height 160 cm Cynthia Leong MD Work Phone: [facility] 06-22-2024 16:17-0500 Body mass index (BMI) [Ratio] 25.37 kg/m2 Cynthia Leong MD Work Phone: [facility] 06-22-2024 16:17-0500 Body weight 64.95 kg Cynthia Leong MD Work Phone: [facility] 06-22-2024 16:17-0500 Diastolic blood pressure 98 mm[Hg] Cynthia Leong MD Work Phone: [facility] 06-22-2024 16:17-0500 Heart rate 80 /min Cynthia Leong MD Work Phone: [facility] 06-22-2024 16:17-0500 SaO2% (BldA) [Mass fraction] 95 % Cynthia Leong MD Work Phone: [facility] 06-22-2024 16:17-0500 Systolic blood pressure 160 mm[Hg] Cynthia Leong MD Work Phone: [facility] 05-18-2024 10:14-0400 Heart rate 74 /min Divina Castellano DIABETES SPECIALIST Work Phone: [facility] 05-18-2024 10:14-0400 SaO2% (BldA) [Mass fraction] 99 % Divina Castellano DIABETES SPECIALIST Work Phone: [facility] 05-18-2024 09:50-0400 Body mass index (BMI) [Ratio] 24.44 kg/m2 Divina Castellano DIABETES SPECIALIST Work Phone: [facility] 05-18-2024 09:50-0400 Body temperature 97.39 [degF] Divina Castellano DIABETES SPECIALIST Work Phone: [facility] 05-18-2024 09:50-0400 Body weight 64.59 kg Divina Castellano DIABETES SPECIALIST Work Phone: [facility] 05-18-2024 09:50-0400 Diastolic blood pressure 82 mm[Hg] Divina Castellano DIABETES SPECIALIST Work Phone: [facility] 05-18-2024 09:50-0400 Systolic blood pressure 138 mm[Hg] Divina Castellano DIABETES SPECIALIST Work Phone: [facility] 05-10-2023 10:45-0400 Body height 162.56 cm Ap Holland Other [facility] Other 05-10-2023 10:45-0400 Body mass index (BMI) [Ratio] 25.4 kg/m2 Ap Holland Other [facility] Other 05-10-2023 10:45-0400 Body weight 67.13 kg Ap Skyler Other [facility] Other 05-10-2023 10:45-0400 Diastolic blood pressure 80 mm[Hg] Ap Skyler Other [facility] Other 05-10-2023 10:45-0400 Systolic blood pressure 122 mm[Hg] Ap Skyler Other [facility] Other 04-06-2023 11:15-0400 Body height 162.56 cm Ap Skyler Other [facility] Other 04-06-2023 11:15-0400 Body mass index (BMI) [Ratio] 26.09 kg/m2 Ap Skyler Other [facility] Other 04-06-2023 11:15-0400 Body weight 68.95 kg Ap Skyler Other [facility] Other 04-06-2023 11:15-0400 Diastolic blood pressure 84 mm[Hg] Ap Skyler Other [facility] Other 04-06-2023 11:15-0400 Systolic blood pressure 124 mm[Hg] Ap Skyler Other [facility] Other 03-23-2023 11:30-0400 Body height 162.56 cm Ap Skyler Other [facility] Other 03-23-2023 11:30-0400 Body mass index (BMI) [Ratio] 26.09 kg/m2 Ap Skyler Other [facility] Other 03-23-2023 11:30-0400 Body weight 68.95 kg Ap Holland Other [facility] Other 03-23-2023 11:30-0400 Diastolic blood pressure 84 mm[Hg] Ap Holland Other [facility] Other 03-23-2023 11:30-0400 Systolic blood pressure 140 mm[Hg] Ap Holland Other [facility] Other 03-08-2023 09:00-0400 Body height 162.56 cm Ap Holland Other [facility] Other 03-08-2023 09:00-0400 Body mass index (BMI) [Ratio] 26.74 kg/m2 Ap Holland Other [facility] Other 03-08-2023 09:00-0400 Body weight 70.67 kg Ap Holland Other [facility] Other 03-08-2023 09:00-0400 Diastolic blood pressure 80 mm[Hg] Ap Holland Other [facility] Other 03-08-2023 09:00-0400 SaO2% (BldA) [Mass fraction] 99 % Ap Holland Other [facility] Other 03-08-2023 09:00-0400 Systolic blood pressure 130 mm[Hg] Ap Holland Other [facility] Other Encounters Encounter Date Encounter Type Care Provider Facility Start: 08-03-2024 End: 08-03-2024 Bamboo flowsheet Alana Lopez PT [facility] Start: 08-03-2024 End: 08-03-2024 Bamboo flowsheet Alana Lopez PT [facility] Start: 08-03-2024 End: 08-03-2024 ambulatory Alana Lopez PT [facility] Comment on above: Spinal stenosis, uns pecified spinal region (Primary Dx); Lumbar and sacral arthritis Start: 07-31-2024 End: 07-31-2024 Josette Leong MD Work Phone: [facility] Comment on above: Essential hypertensi on (CMS/HCC); Dizziness; Acquired hypothyroidism (CMS/HCC) Spinal stenosis, uns pecified spinal region (Primary Dx); Lumbar and sacral arthritis Start: 07-28-2024 End: 07-28-2024 Bamboo flowsheet Alana Lopez PT [facility] Start: 07-28-2024 End: 07-28-2024 Bamboo flowsheet Alana Lopez PT [facility] Start: 07-28-2024 End: 07-28-2024 ambulatory Alana Lopez PT [facility] Comment on above: Spinal stenosis, uns pecified spinal region (Primary Dx); Lumbar and sacral arthritis Start: 07-25-2024 End: 07-25-2024 Bamboo flowsheet Mariano Ghosh [facility] TESTER [facility] Start: 07-25-2024 End: 07-25-2024 Bamboo flowsheet Mariano Ghosh [facility] Start: 07-25-2024 End: 07-25-2024 ambulatory Mariano Ghosh [facility] Comment on above: Spinal stenosis, uns pecified spinal region (Primary Dx); Lumbar and sacral arthritis Start: 07-19-2024 End: 07-19-2024 ambulatory Mariano Ghosh [facility] Comment on above: Spinal stenosis, uns pecified spinal region (Primary Dx); Lumbar and sacral arthritis Start: 07-18-2024 End: 07-19-2024 ambulatory Mariano Ghosh [facility] [facility] Comment on above: Spinal stenosis, uns pecified spinal region (Primary Dx); Lumbar and sacral arthritis Start: 07-18-2024 End: 07-18-2024 Bamboo flowsheet Mariano Ghosh [facility] [facility] Start: 07-18-2024 End: 07-18-2024 Bamboo flowsheet Mariano Ghosh [facility] [employer] Start: 07-14-2024 End: 07-14-2024 Bamboo flowsheet Alana Lopez PT [facility] Start: 07-14-2024 End: 07-14-2024 Bamboo flowsheet Alana Lopez PT [facility] Start: 07-14-2024 End: 07-14-2024 ambulatory Alana Lopez PT [facility] Comment on above: Spinal stenosis, uns pecified spinal region (Primary Dx); Lumbar and sacral arthritis Start: 07-11-2024 End: 07-11-2024 ambulatory Mariano Ghosh [facility] [facility] Comment on above: Spinal stenosis, uns pecified spinal region (Primary Dx); Lumbar and sacral arthritis Start: 07-04-2024 End: 07-04-2024 ambulatory Mariano Ghosh [facility] Comment on above: Spinal stenosis, uns pecified spinal region (Primary Dx); Lumbar and sacral arthritis Start: 06-30-2024 End: 06-30-2024 ambulatory Mariano Ghosh [facility] [facility] Comment on above: Spinal stenosis, uns pecified spinal region (Primary Dx); Lumbar and sacral arthritis Start: 06-27-2024 End: 06-27-2024 ambulatory Alana Lopez PT [facility] Comment on above: Spinal stenosis, uns pecified spinal region (Primary Dx); Lumbar and sacral arthritis Start: 06-23-2024 End: 06-23-2024 ambulatory Alana Lopez PT [facility] Comment on above: Spinal stenosis, uns pecified spinal region (Primary Dx); Lumbar and sacral arthritis Start: 06-22-2024 End: 06-22-2024 Office outpatient visit 25 minutes Cynthia Leong MD Work Phone: [facility] Comment on above: Essential hypertensi on (CMS/HCC) (Primary Dx); B12 deficiency; Acquired hypothyroidism (CMS/HCC); Anemia, unspecified type Start: 06-22-2024 End: 06-22-2024 ambulatory CYNTHIA LEONG Not Available Start: 06-22-2024 End: 06-22-2024 Bamboo flowsheet Cynthia Leong MD Work Phone: [facility] Start: 06-22-2024 End: 06-22-2024 Bamboo flowsheet Cynthia Leong MD Work Phone: [facility] Start: 06-20-2024 End: 06-20-2024 Bamboo flowsheet Mariano Ghosh [facility] [employer] Start: 06-20-2024 End: 06-20-2024 Bamboo flowsheet Mariano Ghosh [facility] Start: 06-20-2024 End: 06-20-2024 ambulatory Mariano Ghosh [facility] Comment on above: Spinal stenosis, uns pecified spinal region (Primary Dx); Lumbar and sacral arthritis Start: 06-16-2024 End: 06-16-2024 Bamboo flowsheet Mariano Ghosh [facility] [facility] Start: 06-16-2024 End: 06-16-2024 Bamboo flowsheet Mariano Ghosh [facility] Start: 06-16-2024 End: 06-16-2024 ambulatory Mariano Ghosh [facility] [facility] Comment on above: Spinal stenosis, uns pecified spinal region (Primary Dx); Lumbar and sacral arthritis Start: 06-14-2024 End: 06-14-2024 Bamboo flowserica Ghosh [facility] [facility] Start: 06-14-2024 End: 06-14-2024 Bamboo flowsheet Mariano Ghosh [facility] Start: 06-14-2024 End: 06-14-2024 ambulatory Mariano Ghosh [facility] [facility] Comment on above: Spinal stenosis, uns pecified spinal region (Primary Dx); Lumbar and sacral arthritis Start: 06-13-2024 End: 06-13-2024 Josette Leong MD Work Phone: [facility] Comment on above: Essential hypertensi on (CMS/HCC) Start: 06-07-2024 End: 06-07-2024 ambulatory Mariano Ghosh [facility] Comment on above: Spinal stenosis, uns pecified spinal region (Primary Dx); Lumbar and sacral arthritis Start: 06-07-2024 End: 06-07-2024 Telephone encounter Cynthia Leong MD Work Phone: [facility] Start: 06-05-2024 End: 06-05-2024 Bamboo flowsheet Alana Lopez PT [facility] Start: 06-05-2024 End: 06-05-2024 Bamboo flowsheet Alana Lopez PT [facility] Start: 06-05-2024 End: 06-05-2024 ambulatory Alana Lopez PT [facility] Comment on above: Spinal stenosis, uns pecified spinal region (Primary Dx); Lumbar and sacral arthritis Start: 05-29-2024 End: 05-29-2024 Bamboo flowsheet Alana Lopez PT [facility] Start: 05-29-2024 End: 05-29-2024 Bamboo flowsheet Alana Lopez PT [facility] Start: 05-29-2024 End: 05-29-2024 ambulatory Alana Lopez PT [facility] Comment on above: Vertigo (Primary Dx) Start: 05-23-2024 End: 05-23-2024 Bamboo flowsheet Alana Lopez PT [facility] Start: 05-23-2024 End: 05-23-2024 Bamboo flowsheet Alana Lopez PT [facility] Start: 05-23-2024 End: 05-23-2024 ambulatory Alana Lopez PT [facility] Comment on above: Vertigo (Primary Dx) Start: 05-22-2024 End: 05-22-2024 Orders Only Libby Ward DIABETES SPECIALIST Work Phone: [facility] Comment on above: Acute cystitis witho ut hematuria (Primary Dx) Start: 05-18-2024 End: 05-18-2024 Bamboo flowsheet Divina Castellano DIABETES SPECIALIST Work Phone: [facility] Start: 05-18-2024 End: 05-18-2024 Bamboo flowsheet Divina Castellano DIABETES SPECIALIST Work Phone: [facility] Start: 05-18-2024 End: 05-18-2024 Telephone encounter Cynthia Leong MD Work Phone: [facility] Comment on above: Vertigo (Called to o er PT Eval for vertigo brett/ Jaquan Lopez PT on 05/23 @ 8:00 am; requested call back terry.); Call Back (She contacted and scheduled per offer 05/23 w/ Jaquan Lopez PT.) Start: 05-18-2024 End: 05-18-2024 Office outpatient visit 25 minutes Divina Castellano DIABETES SPECIALIST Work Phone: [facility] Comment on above: Vertigo (Primary Dx) ; Spinal stenosis, unspecified spinal region; Lumbar and sacral arthritis; Dysuria; Essential hypertension ([facility]) Start: 05-18-2024 End: 05-18-2024 ambulatory DIVINA CASTELLANO Not Available Start: 05-17-2024 End: 05-17-2024 Refill Cynthia Leong MD Work Phone: [facility] Comment on above: Gastroesophageal ref lux disease without esophagitis Start: 05-15-2024 End: 05-15-2024 ambulatory Kulwant Zelayaitis Facility: [facility] Start: 04-17-2024 End: 04-17-2024 ambulatory Kulwant Zelayaitis Facility: [facility] Start: 04-03-2024 End: 04-03-2024 ambulatory Kulwant Zelayaitis Facility: [facility] Start: 03-21-2024 End: 03-21-2024 ambulatory ALANA LOPEZ Not Available Start: 03-14-2024 End: 03-14-[address] Not Available Start: 03-14-2024 End: 03-14-2024 ambulatory ALANA LOPEZ Not Available Start: 03-13-2024 End: 03-13-2024 ambulatory DIVINA PARSON Not Available Start: 03-10-2024 End: 03-10-2024 ambulatory CYNTHIA LEONG Not Available Start: 02-17-2024 End: 02-17-2024 ambulatory ANJALI APLING Not Available Start: 01-18-2024 End: 01-18-2024 ambulatory ANJALI APLING Not Available Start: 01-04-2024 End: 01-04-2024 ambulatory QIAN CLARK Not Available Start: 12-21-2023 End: 12-21-2023 ambulatory ANJALI APLING Not Available Start: 11-25-2023 End: 11-25-2023 ambulatory CYNTHIA LEONG Not Available Start: 11-17-2023 End: 11-17-2023 ambulatory CYNTHIA LEONG Not Available Start: 11-16-2023 End: 11-16-2023 ambulatory CYNTHIA LEONG Not Available Start: 10-08-2023 End: 10-08-2023 ambulatory Charles Hendricks Facility:[facility] Start: 09-27-2023 End: 09-27-2023 ambulatory Kulwant García MD Facility: [facility] Start: 09-13-2023 End: 09-13-2023 ambulatory Kulwant García MD Facility: [facility] Start: 09-02-2023 End: 09-02-2023 ambulatory ROSLYN A POPBURG Not Available Start: 09-01-2023 End: 09-01-2023 ambulatory ANJALI B APLING Not Available Start: 08-18-2023 End: 08-18-2023 ambulatory ANJALI B APLING Not Available Start: 05-10-2023 Office outpatient vi sit 25 minutes Ap Holland [facility] Start: 05-10-2023 End: 05-10-2023 ambulatory Ap Holland Facility:[facility] Start: 05-10-2023 End: 05-10-2023 ambulatory DIABETES SPECIALIST-C Roslyn Briscoe Work Phone: [facility] Work Phone: Start: 05-10-2023 End: 05-10-2023 Patient encounter procedure DIABETES SPECIALIST-C Roslyn Rachna Work Phone: [facility] [place] Work Phone: Start: 04-29-2023 (PROC) PROCEDURE Ap Hart [facility] Start: 04-29-2023 End: 04-29-2023 ambulatory Ap Holland Other [facility] Other Start: 04-06-2023 End: 04-06-2023 ambulatory Ap Holland Other [facility] Other Start: 04-06-2023 Office outpatient vi sit 25 minutes Ap Skyler [facility] Start: 03-23-2023 End: 03-23-2023 ambulatory Apkalin Holland Other [facility] Other Start: 03-23-2023 Office outpatient vi sit 15 minutes Ap Skyler [facility] Start: 03-16-2023 (PROC) PROCEDURE Ap Hart [facility] Start: 03-16-2023 End: 03-16-2023 ambulatory Ap Holland Other [facility] Other Start: 03-09-2023 End: 03-09-2023 ambulatory Ap Holland Other [facility] Other Start: 03-09-2023 Telephone encounter Ap Holland [facility] Start: 03-08-2023 End: 03-08-2023 ambulatory Ap Holland Other [facility] Other Start: 03-08-2023 Office consultation new/estab patient 60 min Ap Skyler [facility] Procedures Date Procedure Procedure Detail Performing Clinician Start: 06-22-2024 Complete blood count with white cell differential, automated Cynthia Leong MD Work Phone: Start: 06-22-2024 Comprehensive metabo lic panel Cynthia Leong MD Work Phone: Start: 06-22-2024 Lipid panel Cynthia castaneda MD Work Phone: Start: 06-22-2024 TSH W/REFLEX TO FT4 Swathi Leong MD Work Phone: Start: 05-18-2024 Urnls dip stick/tabl et rgnt non-auto w/o micrscp Divina Castellano DIABETES SPECIALIST Work Phone: Start: 05-10-2023 Plain X-ray of right hip DIABETES SPECIALIST-C Roslyn Briscoe Work Phone: Plan of Treatment Date Care Activity Detail Author Start: 08-03-2024 Medicare Annual Wellness (AWV) Medicare Annual Wellness (AWV) [facility] Start: 08-03-2024 End: 08-03-2024 ambulatory 08/03/2024 12:30 PM EST Treatment [facility] [address] [facility] [address] [place] [address] Alana Lopez, PT [facility] Start: 07-31-2024 End: 07-31-2024 ambulatory 07/31/2024 12:00 PM EST Treatment [facility] [address] [facility] [address] [place] [address] Mariano Ghosh, MILK TESTER [facility] Start: 07-28-2024 End: 07-28-2024 ambulatory 07/28/2024 1:00 PM EST Treatment [facility] [address] [facility] [address] [place] [address] Alana Lopez, PT Arrived [facility] Comment on above: Arrived Start: 07-27-2024 End: 07-27-2024 ambulatory [facility] Start: 07-25-2024 End: 07-25-2024 ambulatory [facility] Comment on above: Arrived Start: 07-19-2024 End: 07-19-2024 ambulatory 07/19/2024 1:00 PM EST Treatment [facility] [address] [facility] [address] [place] [address] Mariano Ghosh, MILK TESTER [facility] Start: 07-18-2024 End: 07-18-2024 ambulatory 07/18/2024 4:00 PM EST Treatment [facility] [address] [place] [address] [place] [address] Mariano Ghosh, MILK TESTER Arrived [facility] Comment on above: Arrived Start: 07-17-2024 End: 07-17-2024 ambulatory 07/17/2024 12:30 PM EST Treatment [facility] [address] [place] [address] [place] [address] Mariano Ghosh, MILK TESTER [facility] Start: 07-14-2024 End: 07-14-2024 ambulatory [facility] Comment on above: Arrived Start: 07-11-2024 End: 07-11-2024 ambulatory 07/11/2024 12:30 PM EST Treatment [facility] [address] [place] [address] [place] [address] Mariano Ghosh, MILK TESTER [facility] Start: 07-04-2024 End: 07-04-2024 ambulatory 07/04/2024 12:30 PM EST Treatment [facility] [address] [facility] [address] [place] [address] Mariano Ghosh, MILK TESTER [facility] Start: 06-30-2024 End: 06-30-2024 ambulatory 06/30/2024 12:00 PM EST Treatment [facility] [address] [facility] [address] [place] [address] Mariano Ghosh, MILK TESTER [facility] Start: 06-23-2024 End: 06-23-2024 ambulatory 06/23/2024 10:30 AM EST Treatment [facility] [address] [facility] [address] [place] [address] Alana Lopez, PT [facility] Start: 06-22-2024 End: 06-22-2024 Patient encounter procedure 06/22/2024 2:30 PM EST Office Visit [facility] [address] [place] [address] Cynthia Leong MD [address] [facility] [address] [facility] Start: 06-20-2024 End: 06-20-2024 ambulatory 06/20/2024 2:00 PM EST Treatment [facility] [address] [facility] [address] [place] [address] Mariano Ghosh MILK TESTER [facility] Start: 06-16-2024 End: 06-16-2024 ambulatory [facility] Comment on above: Arrived Start: 06-14-2024 End: 06-14-2024 ambulatory 06/14/2024 12:30 PM EST Treatment [facility] [address] [place] [address] Mariano Ghosh MILK TESTER [facility] Start: 06-07-2024 End: 06-07-2024 ambulatory 06/07/2024 2:30 PM EDT Treatment [facility] [address] [facility] [address] [place] [address] Mariano Ghosh PTA [facility] Start: 06-05-2024 End: 06-05-2024 ambulatory [facility] Comment on above: Arrived Start: 05-29-2024 End: 05-29-2024 ambulatory [facility] Comment on above: Arrived Start: 05-23-2024 End: 05-23-2024 ambulatory [facility] Comment on above: Vertigo; Spinal stenosis, unspecified spinal region; Lumbar and sacral arthritis Start: 05-18-2024 End: 05-18-2024 Patient encounter procedure [facility] Comment on above: Arrived Start: 04-09-2024 Influenza vaccination Influenza Vacc ine (#1) [facility] Bacteria identified in Urine by Culture Urine culture Microbiology Routine Dysuria Ordered: 05/18/2024 [facility] Work Phone: Comment on above: Ordered: 05/18/2024 Immunizations Immunization Date Immunization Notes Care Provider Fa cility 07-08-2023 Pneumococcal Conjuga te PCV 20 Cynthia Leong MD Work Phone: [facility] 05-11-2023 influenza, high dose seasonal, preservative-free Cynthia Leong MD Work Phone: [facility] 05-11-2023 influenza virus vacc ine, unspecified formulation Cynthia Leong MD Work Phone: [facility] 06-23-2022 Influenza, High-dose Seasonal, Quadrivalent, Preservative Free Cynthia Leong MD Work Phone: [facility] 05-09-2021 Influenza, High-dose Seasonal, Quadrivalent, Preservative Free Cynthia Leong MD Work Phone: [facility] 06-21-2020 influenza, high dose seasonal, preservative-free Cynthia Leong MD Work Phone: [facility] Payers Date Payer Category Payer Private Health Insurance 2023 Self-pay 2021 Medicaid [employer] MEDICARE A DVANTAGE [id number] 2021 Medicare [employer] MEDICARE A DVANTAGE AETNA MEDICARE REPLACEMENT [id number] 2021-Present [address] [place] [address] [id number] 2021 Medicare [id number] 2.16.840.1.851784.19 1943 Unknown [id number] 2.16.840.1.832339.3.579.2. 196 1945 Unknown [id number] 2.16840.1.543633.3.579.2. 1943 Unknown [id number] 2.16.840.1.228491.3.579.2. 1943 Unknown [id number] 2.16.840.1.480807.3.579.2. 1943 Unknown [id number] 2.16.840.1.914233.3.579.2. 1943 Unknown [id number] 2.16.840.1.607561.3.579.2. 1258 1943 Unknown [id number] 2.16.840.1.718738.3.579.2. 1258 1943 Unknown [id number] 2.16.840.1.123304.3.579.2. 1258 1943 Unknown [id number] 2.840.1.316607.3.579.2. 1258 1943 Unknown [id number] 2.16.840.1.549909.3.579.2. 1258 1943 Unknown [id number] 2.16840.1.503049.3.579.2. 1258 1943 Unknown [id number] 2.16840.1.306983.3.579.2. 1258 1943 Unknown [id number] 2.840.1.886757.3.579.2. 1258 1943 Unknown [id number] 2.16.840.1.934503.3.579.2. 1258 1943 Unknown [id number] 2.16.840.1.841361.3.579.2. 1258 1943 Unknown [id number] 2.16.840.1.631944.3.579.2. 1258 1943 Unknown [id number] 2.16.840.1.733576.3.579.2. 1258 1943 Unknown [id number] 2.16.840.1.525275.3.579.2. 1258 1943 Unknown [id number] 2.16.840.1.128265.3.579.2. 1258 1943 Unknown [id number] 2.16.840.1.572750.3.579.2. 1258 1943 Unknown [id number] 2.16.840.1.756010.3.579.2. 1258 1943 Unknown [id number] 2.16.840.1.426383.3.579.2. 1258 1943 Unknown [id number] 2.16.840.1.666099.3.579.2. 1258 1943 Unknown [id number] 2.16.840.1.497297.3.579.2. 1258 1943 Unknown [id number] 2.16.840.1.328537.3.579.2. 1258 1943 Unknown [id number] 2.16.840.1.309765.3.579.2. 1258 1943 Unknown [id number] 2.16.840.1.489744.3.579.2. 1258 1943 Unknown [id number] 2.16.840.1.292348.3.579.2. 1258 1943 Unknown [id number] 2.16.840.1.388170.3.579.2. 1258 1943 Unknown [id number] 2.16.840.1.321349.3.579.2. 1258 1943 Unknown [id number] 2.16.840.1.456277.3.579.2. 1258 1943 Unknown [id number] 2.16.840.1.682337.3.579.2. 1258 1943 Unknown [id number] 2.16.840.1.357135.3.579.2. 1258 1943 Unknown [id number] 2.16.840.1.284709.3.579.2. 1258 1943 Unknown [id number] 2.16.840.1.767215.3.579.2. 1258 1943 Unknown [id number] 2.16.840.1.495309.3.579.2. 1258 1943 Unknown [id number] 2.16.840.1.553903.3.579.2. 1258 1943 Unknown [id number] 2.16.840.1.251434.3.579.2. 1258 1943 Unknown [id number] 2.16.840.1.128462.3.579.2. 1258 1943 Unknown [id number] 2.16.840.1.463286.3.579.2. 1258 1943 Unknown [id number] 2.16.840.1.390109.3.579.2. 1259 Medicare [id number] 2.16.840.1.334717.19 Unknown [id number] 2.16.840.1.213455.3.579.2. 531 Unknown [id number] 2.16.840.1.336892.3.579.2. 531 Social History Date Type Detail Facility Start: 09-02-2023 End: 06-22-2024 Sex Assigned At [facility] [place] Other Start: 1945 Sex Assigned At Female F [facility] Start: 02-05-2023 [facility] Work Phone: Start: 02-05-2023 Tobacco use and exposure Smokeless tobacco non-user [facility] Start: 03-14-2024 End: 06-22-2024 Alcoholic beverage intake Ex-drinker (finding) [facility] Start: 09-02-2023 End: 06-22-2024 History of Social function [facility] How often to you hav e a drink containing alcohol? Monthly or less [facility] How many standard drinks containing alcohol do you have on a typical day? 1 or 2 [facility] How often do you hav e 6 or more drinks on 1 occasion? Never [facility] Start: 07-07-2023 Alcohol Comment 1 glass of win e past year. Caffeine intake : 1-2 cups/day coffee [facility] Start: 1945 Sex assigned at Not on file [facility] Start: 10-21-2022 Gender identity Identifies as female gender (finding) [facility] Clinical Notes 03-08-2023 to 08-03-2024 Alana Lopez, PT - 08/03/2024 12:30 PM ESTTelephone Encounter - Cynthia Leong MD - 07/31/2024 11:43 AM ESTTelephone Encounter - Cynthia Leong MD - 07/31/2024 11:43 AM EST Note Date & Type Note Facility 08-03-2024 History of Presen t illness Narrative Images from the original note were not included. Physical Therapy Treatment Visit / DISCHARGE Patient Name: Dominique Liz Today's Date: 08/03/2024 Encounter Diagnoses Name Primary? Spinal stenosis, unspecified spinal region Yes Lumbar and sacral arthritis Visit number: 17 Timed Code Treatment Minutes: 29 minutes Total Treatment Time: 39 minutes Time In: 1225 Time Out: 1325 History: Pt states recently she has been dealing with falls due to legs giving out. Pt states last fall was last in her home. Had her 4WW with her but states her legs gave out before she was able to get walker locked and turned. Pt states she has been seen by Pain Management and she was given shots due to pain in right LE. Pt states at this point, pain is really not her concern, more her legs giving out on her. Precautions: MRI January 2023: L3-L4: Small disc bulge. Mild facet arthropathy. Ligamentum flavum thickening. Moderate spinal canal stenosis. Mild left and moderate right neural foraminal stenosis. L4-L5: Grade 1 anterolisthesis of L4 on L5 of approximately 6 mm secondary to advanced facet arthropathy. Small disc bulge. Ligamentum flavum thickening. Severe spinal canal stenosis. Mild bilateral neural foraminal stenosis. L5-S1: Grade 1 anterolisthesis of L5 on S1 of approximately 4 mm secondary to advanced facet arthropathy. Small disc bulge. Ligamentum flavum thickening. Moderate to severe spinal canal stenosis. Mild left and moderate right neural foraminal stenosis. Subjective: Pt states have mild pain in low back and both of her legs today. Pain rates about 1/10. Today is last day PT and would like to hold therapy for awhile and continue with home program. Pain: 110 Objective: PT Evaluation (06/05/2024) LUMBAR SPINE AROM: no complaints of pain at end ranges of motion Strength: bilateral hips 3-/5; right quad and ankle 4-/5; left quad and ankle DF 4-/5, left ankle eversion 3-/5; core strength is fair Special Test: negative SLR bilateral Functional: Five Time Sit to Stand: left armrest only 29.74 seconds Neurological: Reflexes: 2 bilateral patellar Myotomes: decrease left S1 Dermatomes: decrease sensation right Special Test: negative clonus Treatment: Education: HEP education with demonstration, Educated on Eval Findings and POC Manual Therapy: () Gentle manual lumbar distraction with SB. Passive ROM, Joint mobilization, Soft Tissue Mobilization, Myofascial Release, Muscle Energy Technique, Neural Mobilization, Myofascial Cupping, Dry Needling, IASTM, and Scar mobilization as needed. Therapeutic Exercise: (20 minutes) Strength, Endurance, Flexibility, ROM, HEP, Neural Mobilization, Power, and Core Stability as needed. Pt performed exercises per grid. Progressed Nustep unsupervised x10 minutes. Therapeutic Activity: (9 minutes) Exercises to improve dynamic activities, functional tasks, functional mobility to return to prior activity level as needed. Neuromuscular re-education: () Balance Training, Muscle Facilitation, Dynamic Stability, Core Stabilization, and Blood Flow Restriction Training (BFRT) as needed. Modalities: Heat, Ice, Electrical Stimulation, Ultrasound, Cervical Mechanical Traction, Lumbar Mechanical Traction, Iontophoresis, and Fluidotherapy as needed. Assessment: Pt has completed 17 PT sessions for low back and LE pain. Strength right hip 4/5, left hp 4 to 4+/5; bilateral quad strength with MMT 4+/5. Pt able to complete 5 Sit to Stands in 19.49 seconds with use of left armrest only. Back Index score is now 20/50. We will now discharge to home program. Outcome Measure: Back Index: 37/50 Rehab Diagnosis: low back pain; bilateral LE weakness; falls Short Term Goal: To be met in 2 weeks Goal 1: Pt to be instructed in home exercise program. - met [facility] Goals: To be met in 10 weeks Goal 1: Pt to report independence and compliance with home program. (Met) Goal 2: Pt to score no greater than 30/50 on Back Index indicating improved QOL. 20/50 - 07/11/24 (Met) Updated: Goal 3: Pt to achieve 4 to 4+/5 strength bilateral quads to assist with functional tasks. - met Updated: Goal 4: Pt to achieve 4 to 4+/5 strength bilateral hips to assist with mobility. - partially met Updated: Goal 5: Pt to perform 5 sit to stands with left armrest only in less than 17.0 seconds indicating improved functional strength of LE's. - not met DISCHARGE PT documented in this encounter [facility] 07-31-2024 Telephone encount er Note Refills sent. [facility] 07-31-2024 Miscellaneous Notes Formattin g of this note might be different from the original. Refills sent. documented in this encounter [facility] 07-28-2024 History of Presen t illness Narrative Physical Therapy Treatment Visit Patient Name: Dominique Liz Today's Date: 07/28/2024 Encounter Diagnoses Name Primary? Spinal stenosis, unspecified spinal region Yes Lumbar and sacral arthritis Visit number: 15 Timed Code Treatment Minutes: 40 minutes Total Treatment Time: 40 minutes Time In: 1251 Time Out: 1344 History: Pt states recently she has been dealing with falls due to legs giving out. Pt states last fall was last in her home. Had her 4WW with her but states her legs gave out before she was able to get walker locked and turned. Pt states she has been seen by Pain Management and she was given shots due to pain in right LE. Pt states at this point, pain is really not her concern, more her legs giving out on her. Precautions: MRI January 2023: L3-L4: Small disc bulge. Mild facet arthropathy. Ligamentum flavum thickening. Moderate spinal canal stenosis. Mild left and moderate right neural foraminal stenosis. L4-L5: Grade 1 anterolisthesis of L4 on L5 of approximately 6 mm secondary to advanced facet arthropathy. Small disc bulge. Ligamentum flavum thickening. Severe spinal canal stenosis. Mild bilateral neural foraminal stenosis. L5-S1: Grade 1 anterolisthesis of L5 on S1 of approximately 4 mm secondary to advanced facet arthropathy. Small disc bulge. Ligamentum flavum thickening. Moderate to severe spinal canal stenosis. Mild left and moderate right neural foraminal stenosis. Subjective: Pt states her legs went out on her yesterday while in bathroom. Was able to grab onto sink to avoid falling. No injury reported. Pain: 11/16 Objective: PT Evaluation (06/05/2024) LUMBAR SPINE AROM: no complaints of pain at end ranges of motion Strength: bilateral hips 3-/5; right quad and ankle 4-/5; left quad and ankle DF 4-/5, left ankle eversion 3-/5; core strength is fair Special Test: negative SLR bilateral Functional: Five Time Sit to Stand: left armrest only 29.74 seconds Neurological: Reflexes: 2 bilateral patellar Myotomes: decrease left S1 Dermatomes: decrease sensation right Special Test: negative clonus Treatment: Education: HEP education with demonstration, Educated on Eval Findings and POC Manual Therapy: () Gentle manual lumbar distraction with SB. Passive ROM, Joint mobilization, Soft Tissue Mobilization, Myofascial Release, Muscle Energy Technique, Neural Mobilization, Myofascial Cupping, Dry Needling, IASTM, and Scar mobilization as needed. Therapeutic Exercise: (30 minutes) Strength, Endurance, Flexibility, ROM, HEP, Neural Mobilization, Power, and Core Stability as needed. Pt performed exercises per grid. Progressed Nustep unsupervised x8 minutes. Therapeutic Activity: (10 minutes) Exercises to improve dynamic activities, functional tasks, functional mobility to return to prior activity level as needed. Neuromuscular re-education: () Balance Training, Muscle Facilitation, Dynamic Stability, Core Stabilization, and Blood Flow Restriction Training (BFRT) as needed. Modalities: Heat, Ice, Electrical Stimulation, Ultrasound, Cervical Mechanical Traction, Lumbar Mechanical Traction, Iontophoresis, and Fluidotherapy as needed. Assessment: Pt has completed 15 PT sessions for low back and LE pain. Progressed standing exercises this date to improve functional strength when standing. Will continue to progress as pt tolerates. Outcome Measure: Back Index: 37/50 Rehab Diagnosis: low back pain; bilateral LE weakness; falls Short Term Goal: To be met in 2 weeks Goal 1: Pt to be instructed in home exercise program. Endoscopy Nurse Goals: To be met in 10 weeks Goal 1: Pt to report independence and compliance with home program. (Met) Goal 2: Pt to score no greater than 30/50 on Back Index indicating improved QOL. - 07/11/24 (Met) Updated: Goal 3: Pt to achieve 4 to 4+/5 strength bilateral quads to assist with functional tasks. Updated: Goal 4: Pt to achieve 4 to 4+/5 strength bilateral hips to assist with mobility. Updated: Goal 5: Pt to perform 5 sit to stands with left armrest only in less than 17.0 seconds indicating improved functional strength of LE's. Pt will benefit from skilled PT for 2x/week from 06/05/2024 to 08/14/2024 to address the above impairments. I hereby deem this POC medically necessary. Please sign below. Date: documented in this encounter [facility] 07-14-2024 History of Presen t illness Narrative Physical Therapy Progress Note Visit Patient Name: Dominique Liz Today's Date: 07/14/2024 Encounter Diagnoses Name Primary? Spinal stenosis, unspecified spinal region Yes Lumbar and sacral arthritis Visit number: 11 Timed Code Treatment Minutes: 41 minutes Total Treatment Time: 41 minutes Time In: 1230 Time Out: 1215 History: Pt states recently she has been dealing with falls due to legs giving out. Pt states last fall was last in her home. Had her 4WW with her but states her legs gave out before she was able to get walker locked and turned. Pt states she has been seen by Pain Management and she was given shots due to pain in right LE. Pt states at this point, pain is really not her concern, more her legs giving out on her. Precautions: MRI January 2023: L3-L4: Small disc bulge. Mild facet arthropathy. Ligamentum flavum thickening. Moderate spinal canal stenosis. Mild left and moderate right neural foraminal stenosis. L4-L5: Grade 1 anterolisthesis of L4 on L5 of approximately 6 mm secondary to advanced facet arthropathy. Small disc bulge. Ligamentum flavum thickening. Severe spinal canal stenosis. Mild bilateral neural foraminal stenosis. L5-S1: Grade 1 anterolisthesis of L5 on S1 of approximately 4 mm secondary to advanced facet arthropathy. Small disc bulge. Ligamentum flavum thickening. Moderate to severe spinal canal stenosis. Mild left and moderate right neural foraminal stenosis. Subjective: Pt states she fell twice at home since last session. First time she fell, she was trying to pick out hand a toy from the floor, was not holding onto anything. Was able to crawl to chair and get self up. Second fall was in the bathroom, lost her balance and fell between the wall and toilet. had to help get her up from the bathroom. Back is more sore today due to falls. Pain: 11/16 Objective: PT Evaluation (06/05/2024) LUMBAR SPINE AROM: no complaints of pain at end ranges of motion Strength: bilateral hips 3-/5; right quad and ankle 4-/5; left quad and ankle DF 4-/5, left ankle eversion 3-/5; core strength is fair Special Test: negative SLR bilateral Functional: Five Time Sit to Stand: left armrest only 29.74 seconds Neurological: Reflexes: 2 bilateral patellar Myotomes: decrease left S1 Dermatomes: decrease sensation right Special Test: negative clonus Treatment: Education: HEP education with demonstration, Educated on Eval Findings and POC Manual Therapy: (minutes) Gentle manual lumbar distraction with SB. Passive ROM, Joint mobilization, Soft Tissue Mobilization, Myofascial Release, Muscle Energy Technique, Neural Mobilization, Myofascial Cupping, Dry Needling, IASTM, and Scar mobilization as needed. Therapeutic Exercise: (27 minutes) Strength, Endurance, Flexibility, ROM, HEP, Neural Mobilization, Power, and Core Stability as needed. Pt performed exercises per grid. Nustep unsupervised x10 minutes. No progressions this date due to pt c/o soreness day following treatment. Therapeutic Activity: Exercises to improve dynamic activities, functional tasks, functional mobility to return to prior activity level as needed. Neuromuscular re-education: (14 minutes) Balance Training, Muscle Facilitation, Dynamic Stability, Core Stabilization, and Blood Flow Restriction Training (BFRT) as needed. Modalities: Heat, Ice, Electrical Stimulation, Ultrasound, Cervical Mechanical Traction, Lumbar Mechanical Traction, Iontophoresis, and Fluidotherapy as needed. HP applied to low back during supine exercises. Assessment: Pt has completed 11 PT sessions for low back and LE pain. Progressed standing balance exercise this date due to recent falls. Will continue therapy due to recent falls and decrease standing balance. Outcome Measure: Back Index: 37/50 Rehab Diagnosis: low back pain; bilateral LE weakness; falls Short Term Goal: To be met in 2 weeks Goal 1: Pt to be instructed in home exercise program. [facility]itentiary Goals: To be met in 10 weeks Goal 1: Pt to report independence and compliance with home program. (Met) Goal 2: Pt to score no greater than 30/50 on Back Index indicating improved QOL. 20/50 - 07/11/24 (Met) Updated: Goal 3: Pt to achieve 4 to 4+/5 strength bilateral quads to assist with functional tasks. Updated: Goal 4: Pt to achieve 4 to 4+/5 strength bilateral hips to assist with mobility. Updated: Goal 5: Pt to perform 5 sit to stands with left armrest only in less than 17.0 seconds indicating improved functional strength of LE's. Pt will benefit from skilled PT for 2x/week from 06/05/2024 to 08/14/2024 to address the above impairments. I hereby deem this POC medically necessary. Please sign below. Date: documented in this encounter [facility] 06-27-2024 History of Presen t illness Narrative Physical Therapy Treatment Visit Patient Name: Dominique Liz Today's Date: 06/27/2024 Encounter Diagnoses Name Primary? Spinal stenosis, unspecified spinal region Yes Lumbar and sacral arthritis Visit number: 7 Timed Code Treatment Minutes: 31 minutes Total Treatment Time: 36 minutes Time In: 1355 Time Out: 1435 History: Pt states recently she has been dealing with falls due to legs giving out. Pt states last fall was last in her home. Had her 4WW with her but states her legs gave out before she was able to get walker locked and turned. Pt states she has been seen by Pain Management and she was given shots due to pain in right LE. Pt states at this point, pain is really not her concern, more her legs giving out on her. Precautions: MRI January 2023: L3-L4: Small disc bulge. Mild facet arthropathy. Ligamentum flavum thickening. Moderate spinal canal stenosis. Mild left and moderate right neural foraminal stenosis. L4-L5: Grade 1 anterolisthesis of L4 on L5 of approximately 6 mm secondary to advanced facet arthropathy. Small disc bulge. Ligamentum flavum thickening. Severe spinal canal stenosis. Mild bilateral neural foraminal stenosis. L5-S1: Grade 1 anterolisthesis of L5 on S1 of approximately 4 mm secondary to advanced facet arthropathy. Small disc bulge. Ligamentum flavum thickening. Moderate to severe spinal canal stenosis. Mild left and moderate right neural foraminal stenosis. Subjective: Pt states legs are hurting more today. Pt states increase pain is due to rainy weather. Pain: 11/16 Objective: PT Evaluation (06/05/2024) LUMBAR SPINE AROM: no complaints of pain at end ranges of motion Strength: bilateral hips 3-/5; right quad and ankle 4-/5; left quad and ankle DF 4-/5, left ankle eversion 3-/5; core strength is fair Special Test: negative SLR bilateral Functional: Five Time Sit to Stand: left armrest only 29.74 seconds Neurological: Reflexes: 2 bilateral patellar Myotomes: decrease left S1 Dermatomes: decrease sensation right Special Test: negative clonus Treatment: Education: HEP education with demonstration, Educated on Eval Findings and POC Manual Therapy: () Gentle manual lumbar distraction with SB. Passive ROM, Joint mobilization, Soft Tissue Mobilization, Myofascial Release, Muscle Energy Technique, Neural Mobilization, Myofascial Cupping, Dry Needling, IASTM, and Scar mobilization as needed. Therapeutic Exercise: (31 minutes) Strength, Endurance, Flexibility, ROM, HEP, Neural Mobilization, Power, and Core Stability as needed. Pt performed exercises per grid. Nustep unsupervised x5 minutes. No progressions this date due to pt c/o soreness day following treatment. Therapeutic Activity: Exercises to improve dynamic activities, functional tasks, functional mobility to return to prior activity level as needed. Neuromuscular re-education: Balance Training, Muscle Facilitation, Dynamic Stability, Core Stabilization, and Blood Flow Restriction Training (BFRT) as needed. Modalities: Heat, Ice, Electrical Stimulation, Ultrasound, Cervical Mechanical Traction, Lumbar Mechanical Traction, Iontophoresis, and Fluidotherapy as needed. HP applied to low back during supine exercises. Assessment: Pt has completed 7 PT sessions for low back and LE pain. Performed sitting exercises this date due to pt c/o bilateral LE pain. Pt continues to ambulate with use of RW and step through gait pattern. Will continue to progress as able. Outcome Measure: Back Index: 37/50 Rehab Diagnosis: low back pain; bilateral LE weakness; falls Short Term Goal: To be met in 2 weeks Goal 1: Pt to be instructed in home exercise program. [facility]: To be met in 10 weeks Goal 1: Pt to report independence and compliance with home program. Goal 2: Pt to score no greater than 30/50 on Back Index indicating improved QOL. Goal 3: Pt to achieve 4- to 4/5 strength bilateral quads to assist with functional tasks. Goal 4: Pt to achieve 4-/5 strength bilateral hips to assist with mobility. Goal 5: Pt to perform 5 sit to stands with left armrest only in less than 23.0 seconds indicating improved functional strength of LE's. Pt will benefit from skilled PT for 2x/week from 06/05/2024 to 08/14/2024 to address the above impairments. I hereby deem this POC medically necessary. Please sign below. Date: documented in this encounter [facility] 06-23-2024 History of Presen t illness Narrative Physical Therapy Treatment Visit Patient Name: Dominique Liz Today's Date: 06/23/2024 Encounter Diagnoses Name Primary? Spinal stenosis, unspecified spinal region Yes Lumbar and sacral arthritis Visit number: 6 Timed Code Treatment Minutes: 40 minutes Total Treatment Time: 50 minutes Time In: 1030 Time Out: 1125 History: Pt states recently she has been dealing with falls due to legs giving out. Pt states last fall was last in her home. Had her 4WW with her but states her legs gave out before she was able to get walker locked and turned. Pt states she has been seen by Pain Management and she was given shots due to pain in right LE. Pt states at this point, pain is really not her concern, more her legs giving out on her. Precautions: MRI January 2023: L3-L4: Small disc bulge. Mild facet arthropathy. Ligamentum flavum thickening. Moderate spinal canal stenosis. Mild left and moderate right neural foraminal stenosis. L4-L5: Grade 1 anterolisthesis of L4 on L5 of approximately 6 mm secondary to advanced facet arthropathy. Small disc bulge. Ligamentum flavum thickening. Severe spinal canal stenosis. Mild bilateral neural foraminal stenosis. L5-S1: Grade 1 anterolisthesis of L5 on S1 of approximately 4 mm secondary to advanced facet arthropathy. Small disc bulge. Ligamentum flavum thickening. Moderate to severe spinal canal stenosis. Mild left and moderate right neural foraminal stenosis. Subjective: Pt states she feels better after being in PT. States she next morning she seems to be a bit more sore but overall thinks she is getting better. Pain: 09/18 Objective: PT Evaluation (06/05/2024) LUMBAR SPINE AROM: no complaints of pain at end ranges of motion Strength: bilateral hips 3-/5; right quad and ankle 4-/5; left quad and ankle DF 4-/5, left ankle eversion 3-/5; core strength is fair Special Test: negative SLR bilateral Functional: Five Time Sit to Stand: left armrest only 29.74 seconds Neurological: Reflexes: 2 bilateral patellar Myotomes: decrease left S1 Dermatomes: decrease sensation right Special Test: negative clonus Treatment: Education: HEP education with demonstration, Educated on Eval Findings and POC Manual Therapy: () Gentle manual lumbar distraction with SB. Passive ROM, Joint mobilization, Soft Tissue Mobilization, Myofascial Release, Muscle Energy Technique, Neural Mobilization, Myofascial Cupping, Dry Needling, IASTM, and Scar mobilization as needed. Therapeutic Exercise: (40 minutes) Strength, Endurance, Flexibility, ROM, HEP, Neural Mobilization, Power, and Core Stability as needed. Pt performed exercises per grid. Nustep unsupervised x10 minutes. No progressions this date due to pt c/o soreness day following treatment. Therapeutic Activity: Exercises to improve dynamic activities, functional tasks, functional mobility to return to prior activity level as needed. Neuromuscular re-education: Balance Training, Muscle Facilitation, Dynamic Stability, Core Stabilization, and Blood Flow Restriction Training (BFRT) as needed. Modalities: Heat, Ice, Electrical Stimulation, Ultrasound, Cervical Mechanical Traction, Lumbar Mechanical Traction, Iontophoresis, and Fluidotherapy as needed. HP applied to low back during supine exercises. Assessment: Pt has completed 6 PT sessions for low back and LE pain. No progressions this date due to pt complaints of increase pain/soreness on days following therapy. Will continue to progress functional strength as pt tolerates. Outcome Measure: Back Index: 37/50 Rehab Diagnosis: low back pain; bilateral LE weakness; falls Short Term Goal: To be met in 2 weeks Goal 1: Pt to be instructed in home exercise program. [facility] Nurse Goals: To be met in 10 weeks Goal 1: Pt to report independence and compliance with home program. Goal 2: Pt to score no greater than 30/50 on Back Index indicating improved QOL. Goal 3: Pt to achieve 4- to 4/5 strength bilateral quads to assist with functional tasks. Goal 4: Pt to achieve 4-/5 strength bilateral hips to assist with mobility. Goal 5: Pt to perform 5 sit to stands with left armrest only in less than 23.0 seconds indicating improved functional strength of LE's. Pt will benefit from skilled PT for 2x/week from 06/05/2024 to 08/14/2024 to address the above impairments. I hereby deem this POC medically necessary. Please sign below. Date: documented in this encounter [facility] 06-22-2024 History of Presen t illness Narrative Images from the original note were not included. Yvonne Liz is a 78 y.o. female presents with chief complaint of Elevated blood pressure readings. HPI: HPI History of Present Illness The patient presents for evaluation of hypertension. She is accompanied by her daughter. She has been monitoring her blood pressure weekly, which has been fluctuating in the 160s and occasionally higher. She recalls an instance when her blood pressure was recorded as 204 systolic and [address] Villegas's office, which slightly decreased upon rechecking. She is currently on metoprolol for her hypertension. She reports feeling shaky and has resumed therapy focusing on leg strengthening. Despite this, she continues to experience dizziness, particularly when she is inactive and then suddenly moves. No chest pain or shortness of breath. No headache. She also mentions a history of anemia and reports no current leg swelling. SUBJECTIVE: MEDICATIONS: Current Outpatient Medications Medication Instructions acetaminophen (TYLENOL 8 HOUR) 650 mg, Every 8 hours PRN atorvastatin (LIPITOR) 10 mg, Oral, Every 24 hours calcitriol (ROCALTROL) 0.25 mcg, Daily cetirizine (ZyrTEC) 10 MG tablet Take by mouth. cholecalciferol (VITAMIN D-3) 1,000 Units, Daily Cyanocobalamin (B-12 Compliance Injection) 1000 MCG/ML kit 1 mL, Injection, Every 30 days diazePAM (Valium) 5 MG tablet TAKE 1 TABLET BY MOUTH PRIOR TO PROCEDURE escitalopram (LEXAPRO) 5 mg, Oral, Daily levothyroxine (SYNTHROID, LEVOXYL) 75 mcg, Oral, Every morning, Take on an empty stomach. lisinopril 5 mg, Oral, Daily Meclizine HCl 25 MG chewable tablet chew & swallow ONE TABLET BY MOUTH EVERY 12 HOURS metoprolol succinate XL (TOPROL-XL) 25 mg, Oral, Every morning omeprazole (PRILOSEC) 40 mg, Oral, Every morning traMADol (ULTRAM) 50 mg, 2 times daily PRN I have reviewed and reconciled the history and medication list with the patient today. REVIEW OF SYMPTOMS: Review of Systems OBJECTIVE: Visit Vitals BP (!) 160/98 Pulse 80 Ht 5' 3 Wt 143 lb 3.2 oz SpO2 95% BMI 25.37 kg/m Smoking Status Never BSA 1.7 m Physical Exam Vitals and nursing note reviewed. Constitutional: Appearance: Normal appearance. HENT: Head: Normocephalic and atraumatic. Mouth/Throat: Mouth: Mucous membranes are moist. Pharynx: Oropharynx is clear. Cardiovascular: Rate and Rhythm: Normal rate and regular rhythm. Pulses: Normal pulses. Heart sounds: Normal heart sounds. Pulmonary: Effort: Pulmonary effort is normal. Breath sounds: Normal breath sounds. Musculoskeletal: Cervical back: Normal range of motion and neck supple. Neurological: General: No focal deficit present. Mental Status: She is alert. Psychiatric: Mood and Affect: Mood normal. ASSESSMENT AND PLAN: Assessment & Plan 1. Hypertension. Blood pressure readings have been fluctuating in the 160s to 170s over 90s, with a recent high of 204/188 at a doctor's office. She experiences dizziness and shakiness, which may be related to her blood pressure. Her current medication, metoprolol, is a long-acting beta-abhishek, and increasing the dose is not advisable due to her dizziness. A low dose of an additional medication will be prescribed to work in conjunction with metoprolol. Blood work will be conducted today to check kidney and thyroid function, as well as B12 levels, as deficiencies could contribute to her symptoms. If B12 levels are low, additional B12 will be prescribed. The new medication will be sent to [facility] and should be taken once daily with her morning pills. 2. Dizziness. She reports persistent dizziness, which worsens with physical activity. This could be related to her hypertension or potential anemia. Blood work will be conducted to check for anemia and B12 levels. If B12 levels are low, additional B12 will be prescribed. 3. Health Maintenance. It has been a year since her last Medicare wellness visit in July 2023. Annual lab work will be repeated to ensure stable kidney and thyroid function. Follow-up Return in early July 2024 for follow-up and Medicare wellness visit. Assessment/Plan Problem List Items Addressed This Visit Essential hypertension (CMS/HCC) - Primary Relevant Medications lisinopril 5 MG tablet Add in lisinopril to the metoprolol XL Other Relevant Orders CBC and differential Comprehensive metabolic panel Lipid panel Hypothyroidism, unspecified (CMS/HCC) Relevant Orders CBC and differential TSH W/REFLEX TO FT4 Other Visit Diagnoses B12 deficiency Relevant Orders CBC and differential Vitamin B12 Anemia, unspecified type Relevant Orders CBC and differential documented in this encounter [facility] 06-20-2024 History of Presen t illness Narrative Physical Therapy Treatment Visit Patient Name: Dominique Liz Today's Date: 06/20/2024 Encounter Diagnoses Name Primary? Spinal stenosis, unspecified spinal region Yes Lumbar and sacral arthritis Visit number: 5 Timed Code Treatment Minutes: 45 minutes Total Treatment Time: 55 minutes Time In: 1400 Time Out: 1455 History: Pt states recently she has been dealing with falls due to legs giving out. Pt states last fall was last in her home. Had her 4WW with her but states her legs gave out before she was able to get walker locked and turned. Pt states she has been seen by Pain Management and she was given shots due to pain in right LE. Pt states at this point, pain is really not her concern, more her legs giving out on her. Precautions: MRI January 2023: L3-L4: Small disc bulge. Mild facet arthropathy. Ligamentum flavum thickening. Moderate spinal canal stenosis. Mild left and moderate right neural foraminal stenosis. L4-L5: Grade 1 anterolisthesis of L4 on L5 of approximately 6 mm secondary to advanced facet arthropathy. Small disc bulge. Ligamentum flavum thickening. Severe spinal canal stenosis. Mild bilateral neural foraminal stenosis. L5-S1: Grade 1 anterolisthesis of L5 on S1 of approximately 4 mm secondary to advanced facet arthropathy. Small disc bulge. Ligamentum flavum thickening. Moderate to severe spinal canal stenosis. Mild left and moderate right neural foraminal stenosis. Subjective: Low back and bilateral hips, right worse than left. Pt complains of general soreness this date but feels overall improvement since beginning PT. Pain: 09/18 Objective: PT Evaluation (06/05/2024) LUMBAR SPINE AROM: no complaints of pain at end ranges of motion Strength: bilateral hips 3-/5; right quad and ankle 4-/5; left quad and ankle DF 4-/5, left ankle eversion 3-/5; core strength is fair Special Test: negative SLR bilateral Functional: Five Time Sit to Stand: left armrest only 29.74 seconds Neurological: Reflexes: 2 bilateral patellar Myotomes: decrease left S1 Dermatomes: decrease sensation right Special Test: negative clonus Treatment: Education: HEP education with demonstration, Educated on Eval Findings and POC Manual Therapy: () Gentle manual lumbar distraction with SB. Passive ROM, Joint mobilization, Soft Tissue Mobilization, Myofascial Release, Muscle Energy Technique, Neural Mobilization, Myofascial Cupping, Dry Needling, IASTM, and Scar mobilization as needed. Therapeutic Exercise: (45 minutes) Strength, Endurance, Flexibility, ROM, HEP, Neural Mobilization, Power, and Core Stability as needed. Pt performed and instructed in home program this date; written instructions and pictures issued with good pt understanding. Nustep unsupervised x10 minutes. Therapeutic Activity: Exercises to improve dynamic activities, functional tasks, functional mobility to return to prior activity level as needed. Neuromuscular re-education: Balance Training, Muscle Facilitation, Dynamic Stability, Core Stabilization, and Blood Flow Restriction Training (BFRT) as needed. Modalities: Heat, Ice, Electrical Stimulation, Ultrasound, Cervical Mechanical Traction, Lumbar Mechanical Traction, Iontophoresis, and Fluidotherapy as needed. Assessment: Pt is 78 y/o female with h/o falls and low back pain. Pt with limited strength of core and bilateral LE's. Reliant on RW for gait due to LE's giving way. Pt will benefit from PT to increase functional strength to decrease fall risk. Pt required vc's for walker safety and keeping walker close while ambulating. Progressed reps with noted fatigue but no increased pain. Pt very fatigued this date. Outcome Measure: Back Index: 37/50 Rehab Diagnosis: low back pain; bilateral LE weakness; falls Short Term Goal: To be met in 2 weeks Goal 1: Pt to be instructed in home exercise program. Endoscopy Nurse Goals: To be met in 10 weeks Goal 1: Pt to report independence and compliance with home program. Goal 2: Pt to score no greater than 30/50 on Back Index indicating improved QOL. Goal 3: Pt to achieve 4- to 4/5 strength bilateral quads to assist with functional tasks. Goal 4: Pt to achieve 4-/5 strength bilateral hips to assist with mobility. Goal 5: Pt to perform 5 sit to stands with left armrest only in less than 23.0 seconds indicating improved functional strength of LE's. Pt will benefit from skilled PT for 2x/week from 06/05/2024 to 08/14/2024 to address the above impairments. I hereby deem this POC medically necessary. Please sign below. Date: Cosigned by Alana Lopez, PT at 06/23/2024 1:09 PM EST documented in this encounter [facility] 06-13-2024 Telephone encount er Note Approving, but needs appt for additional refills. [facility] 06-13-2024 Miscellaneous Notes Formattin g of this note might be different from the original. Approving, but needs appt for additional refills. 180/70 sometimes 160/70 definitely happening more frequently than family would like. Scheduling an appt for the next wk Patient is calling for refill of metoprolol to [facility] in [place]. When her b/p is high do you want her to take more of this medication? Please advise pt. Thank you. documented in this encounter [facility] 06-13-2024 Telephone encount er Note 180/70 sometimes 160/70 definitely happening more frequently than family would like. Scheduling an appt for the next wk [facility] 06-13-2024 Telephone encount er Note Patient is calling for refill of metoprolol to [facility] in [place]. When her b/p is high do you want her to take more of this medication? Please advise pt. Thank you. [facility] 06-07-2024 Telephone encount er Note Nanette Fox's daughter Kellie is having a lot of pain and needing to get in terry, *I can call if needed , ty [facility] [phone] [facility] 06-07-2024 Miscellaneous Notes Formattin g of this note might be different from the original. Nanette Fox's daughter called<Dentist office needs a verbal ok that Dominique can get her cracked tooth /filling repaired . Due to having a hip replacement ( ibelieve in october) She is having a lot of pain and needing to get in terry, *I can call if needed , ty [facility] [phone] documented in this encounter [facility] 05-29-2024 History of Presen t illness Narrative Physical Therapy Treatment Visit - DISCHARGE Patient Name: Dominique Liz Today's Date: 05/29/2024 Encounter Diagnoses Name Primary? Vertigo Yes Visit number: 2 Timed Code Treatment Minutes: 45 minutes Total Treatment Time: 45 minutes Time In: 1000 Time Out: 1051 History: Pt states a couple weeks ago her dizziness came back. Sx's haven't been consistent but occasionally present. Tried doing exercises at home but couldn't remember exactly how to do them. Pt states last she was out with her friends and did have a fall at restaurant. Pt states for some reason her legs gave out while walking; doesn't think it was due to dizziness. Took 2 or 3 Meclizine yesterday, none today. Precautions: [place], falls Subjective: Pt states she continues with lightheadedness if getting up to fast. States not having any room spinning dizziness at this time. Pain: 0/10 Objective: PT Evaluation (05/23/2024) CERVICAL CROM: WFL Joint play: not tested Palpation: not tested Special Test: Modified VBI Testing: negative bilateral Hallpike: Left Hallpike negative; dizziness reported with right Hallpike Roll Test: not tested Treatment: Education: HEP education with demonstration, Educated on Eval Findings and POC Manual Therapy: Passive ROM, Joint mobilization, Soft Tissue Mobilization, Myofascial Release, Muscle Energy Technique, Neural Mobilization, Myofascial Cupping, Dry Needling, IASTM, and Scar mobilization as needed. Therapeutic Exercise: Strength, Endurance, Flexibility, ROM, HEP, Neural Mobilization, Power, and Core Stability as needed. Therapeutic Activity: Exercises to improve dynamic activities, functional tasks, functional mobility to return to prior activity level as needed. Neuromuscular re-education: (45 minutes) Balance Training, Muscle Facilitation, Dynamic Stability, Core Stabilization, and Blood Flow Restriction Training (BFRT) as needed. Pt noted difficulty keeping eyes focused during exercises. Discussed importance of HEP compliance with good pt understanding. Modalities: Heat, Ice, Electrical Stimulation, Ultrasound, Cervical Mechanical Traction, Lumbar Mechanical Traction, Iontophoresis, and Fluidotherapy as needed. Assessment: Pt has completed 2 PT sessions for dizziness. BPPV testing is negative this date. Reviewed and performed HEP with good pt understanding. Pt with difficulty performing VOR exercises due to eyes not staying focused. Pt wishing to discontinue PT for vertigo due to not having any room spinning dizziness; would like to begin PT for low back and LE's next session. We will now discharge. Outcome Measure: Dizziness Handicap Inventory (DHI): 54/100 Rehab Diagnosis: dizziness; difficulty walking Short Term Goal: To be met in 2 weeks Goal 1: Pt to be instructed in home exercise program. [facility] Goals: To be met in 10 weeks Goal 1: Pt to report independence and compliance with home program. - [facility] Goal 2: Pt to present with negative BPPV testing. - [facility] Goal 3: Pt to report decrease dizziness by 90% throughout the day. - [facility] Goal 4: Pt to score no greater than 40/100 on DHI indicating improved QOL. - NOT TESTED Discharge PT this date. documented in this encounter [facility] 05-18-2024 Telephone encount er Note Patient daughter- Nanette is calling today re: referral. Nanette called PT and they can address one issue at a time. Is the vertigo more important that the spinal stenosis and arthritis at this time? Please advise Nanette which one you would like addressed first so she can call and get this scheduled. Nanette [phone]. Thank you. [facility] 05-18-2024 Miscellaneous Notes Formattin g of this note might be different from the original. Patient daughter- Nanette is calling today re: referral. Nanette called PT and they can address one issue at a time. Is the vertigo more important that the spinal stenosis and arthritis at this time? Please advise Nanette which one you would like addressed first so she can call and get this scheduled. Nanette [phone]. Thank you. documented in this encounter [facility] 05-18-2024 History of Presen t illness Narrative Images from the original note were not included. Patient Demographics: Yvonne Liz Date of : 1945 Chief Complaint Patient presents with Vertigo HPI Patient reports that this episode started a week ago. Patient states she has had 2 episodes and that she was able to take Meclizine and make the episode stop. Patient reports that she fell this past as well. She states she doesn't know what happened, but she feels like her legs stopped working. Patient states she was not injured when she fell. Pt is being seen today for complaints of vertigo. She had been treated in March by PT for vertigo and reports that it helped and didn't start to have issues again until recently. Pt's spouse would like to have another referral to PT so that they can get ahead of it and it does not get bad again. Pt does have meclizine that she takes that seems to help some. PT had also given her exercises, but she admits that she has not done them and forgets some of them. Pt has also followed up with pain clinic and has had 2 shots in her back. She states she feels they have helped. Foes back on 05/24 to review with them how she is doing. Denies any increase in numbness/tingling in lower extremities since having pain shot. Spouse is questioning what else can be done re: the spinal stenosis. Discussed referral to spine orthopedist or neurosurgeon and pt states she does not want to have any kind of surgery. She have a fall last week in a parking lot. Spouse states is wasn't a real fall, but she slid. Her legs seemed to give out. Denies any injury and denies it being related to dizziness. Discussed that PT may also benefit her balance issues that seem to be related to her spinal issues and she and spouse agree. Spouse reports that pt did have elevated BP when at pain clinic - up near 200 systolic and on return home it was 185 and slowly came down to where it is today. Has had problems with blood pressure spiking in the past and then going low. Was taken off of Lisinopril last year due to this. Does have blood pressure cuff at home and BP has been running where it currently is in the office. Spouse did mention that he is concerned re: pt's dementia as he was leaving the office. Advised at this time would recommend follow up with Dr. Leong. Pt may benefit from a referral to neurology. Urine specimen was given today and will be sent for culture. The following portions of the patient's history were reviewed and updated as appropriate: allergies, current medications, past family history, past medical history, past social history, past surgical history and problem list. Past History Past Medical History: Diagnosis Date Acute gout of right knee, unspecified cause Cramp in lower leg associated with rest 12/01/2018 Decreased platelet count ([facility]) 01/01/2023 Essential hypertension ([facility]) 10/15/2016 Gastro-esophageal reflux disease without esophagitis 11/24/2017 GERD (gastroesophageal reflux disease) Hypertension ([facility]) Hyperthyroidism ([facility]) Hypothyroid ([facility]) Hypothyroidism, unspecified ([facility]) 05/11/2016 Lumbar and sacral arthritis 01/01/2023 Mixed hyperlipidemia ([facility]) 10/15/2016 Nocturnal leg cramps 01/01/2023 Orthostatic hypotension 08/24/2023 RLS (restless legs syndrome) 12/01/2018 Scapular dyskinesis 12/07/2019 Stress at home 09/18/2016 Vitamin D deficiency 12/02/2018 Past Surgical History: Procedure Laterality Date HIP SURGERY Right 10/07/2023 Fx fixed @ [facility] PARTIAL HYSTERECTOMY 1982 Current Outpatient Medications Medication Instructions acetaminophen (TYLENOL 8 HOUR) 650 mg, Oral, Every 8 hours PRN, Do not crush, chew, or split. atorvastatin (LIPITOR) 10 mg, Oral, Every 24 hours calcitriol (ROCALTROL) 0.25 mcg, Oral, Daily cetirizine (ZyrTEC) 10 MG tablet Oral cholecalciferol (VITAMIN D-3) 1,000 Units, Oral, Daily Cyanocobalamin (B-12 Compliance Injection) 1000 MCG/ML kit 1 mL, Injection, Every 30 days escitalopram (LEXAPRO) 5 mg, Oral, Daily levothyroxine (SYNTHROID, LEVOXYL) 75 mcg, Oral, Every morning, Take on an empty stomach. Meclizine HCl 25 mg, Oral, Every 12 hours metoprolol succinate XL (TOPROL-XL) 25 mg, Oral, Every morning omeprazole (PRILOSEC) 40 mg, Oral, Every morning Allergies Allergen Reactions Seasonal Ic [Octacosanol] Tobacco History: reports that she has never smoked. She has never used smokeless tobacco. Counseling given: Not Answered Last Height and Weight with BMI: 142 lb 6.4 oz Body mass index is 24.44 kg/m . Last 3 Weights: Wt Readings from Last 3 Encounters: 05/18/24 142 lb 6.4 oz 03/14/24 143 lb 03/10/24 143 lb ROS: Review of Systems Constitutional: Negative. HENT: Negative. Eyes: Negative. Respiratory: Negative. Cardiovascular: Negative. Gastrointestinal: Negative. Genitourinary: Negative. Musculoskeletal: See HPI Skin: Negative. Neurological: Positive for dizziness. See HPI Psychiatric/Behavioral: Negative. Hematological: Negative. Endocrine: Negative. Allergic/Immunologic: Negative. PHYSICAL EXAM : Vitals: 05/18/24 0950 05/18/24 1014 BP: 138/82 BP Location: Left arm Patient Position: Sitting BP Cuff Size: Large adult Pulse: 74 Temp: 97.4 F TempSrc: Temporal SpO2: 99% Weight: 142 lb 6.4 oz Physical Exam Vitals and nursing note reviewed. Constitutional: General: She is not in acute distress. Appearance: Normal appearance. She is not ill-appearing. HENT: Head: Normocephalic and atraumatic. Eyes: Conjunctiva/sclera: Conjunctivae normal. Cardiovascular: Rate and Rhythm: Normal rate and regular rhythm. Pulses: Normal pulses. Heart sounds: Normal heart sounds. Pulmonary: Effort: Pulmonary effort is normal. Breath sounds: Normal breath sounds. Abdominal: General: Bowel sounds are normal. Palpations: Abdomen is soft. Musculoskeletal: Cervical back: Normal range of motion and neck supple. Right lower leg: No edema. Left lower leg: No edema. Comments: Ambulates with a walker Skin: General: Skin is warm and dry. Neurological: General: No focal deficit present. Mental Status: She is alert. Mental status is at baseline. Psychiatric: Mood and Affect: Mood normal. Behavior: Behavior normal. ASSESSMENT AND PLAN : 1. Vertigo Meclizine continues to help. PT was most effective - will have pt return to therapy - Ambulatory referral to Physical Therapy; Future 2. Spinal stenosis, unspecified spinal region Pt is currently seeing pain management for pain Spouse is asking about next steps - offered therapy if felt it was started to affect balance. They are agreeable Chart review shows that pt was sent a referral to Dr. Turner in December/January 2024 - does not appear there was follow up - Ambulatory referral to Physical Therapy; Future 3. Lumbar and sacral arthritis Continues to see pain management - Ambulatory referral to Physical Therapy; Future 4. Dysuria - POCT Urinalysis dipstick - Urine culture 5. Essential hypertension (CMS/HCC) This is a chronic medical condition that is stable since last assessment. No changes in treatment are suggested at this time. Encouraged pt and spouse to continue to monitor BP - if sustained above 140/90, please notify office and follow up in office Condition and plan discussed with patient in detail, patient agrees with plan. Most recent laboratory results were reviewed, addressed and were found to be satisfactory other than what has been noted above in the A&P. Patient to return to office: Follow up for Next scheduled follow-up. documented in this encounter [facility] 05-10-2023 Evaluation note Encounter Date Diagnosis Assessment [...] up in 1 week for further evaluation. [facility] Other 08-29-2023 Evaluation note* Encounter Date Diagnosis Assessment Notes Treatment Notes Treatment Clinical Notes Mar, Lumbar degenerative disc disease (ICD-10 [...] (ICD-10 - G89.29) Proceed with treatment plan. [facility] Other 08-15-2023 Evaluation note* Encounter Date Diagnosis Assessment Notes Treatment Notes Treatment Clinical Notes Mar, Lumbar degenerative disc disease (ICD-10 [...] (ICD-10 - G89.29) Follow up as needed [facility] Other 07-31-2023 Evaluation note* Encounter Date Diagnosis Assessment Notes Treatment Notes Treatment Clinical Notes Feb, Lumbar radiculopathy (ICD-10 - M54.16) [...] Follow up after procedure. Feb, Other Medical deci raissa making shows a new problem to me [...] negative findings were considered in medical decision-making. [place] [facility] Other [facility]No [facility] Other Evaluation noteNo assessment information available [facility] Work Phone: Evaluation note* Diagnosis Gastroesophageal reflux disease without esophagitis Esophageal reflux [facility] Diagnosis Vertigo- Primary Dizziness and giddiness Spinal stenosis, unspecified spinal region Lumbar and sacral arthritis Lumbosacral spondylosis without myelopathy Dysuria Essential hypertension (CMS/HCC) Unspecified essential hypertension [facility] Diagnosis B12 deficiency- Primary Essential hypertension (CMS/HCC) Unspecified essential hypertension Acquired hypothyroidism (CMS/HCC) Unspecified hypothyroidism Decreased platelet count (CMS/HCC) Unspecified thrombocytopenia Mixed hyperlipidemia (CMS/HCC) Mixed hyperlipidemia Vertigo Dizziness and giddiness Closed fracture of neck of right femur with routine healing, subsequent encounter Atherosclerosis of aorta (CMS/HCC) Atherosclerosis of aorta Acute cystitis without hematuria- Primary [facility]* Diagnosis B12 deficiency- Primary Essential hypertension (CMS/HCC) Unspecified essential hypertension Acquired hypothyroidism (CMS/HCC) Unspecified hypothyroidism Decreased platelet count (CMS/HCC) Unspecified thrombocytopenia Mixed hyperlipidemia (CMS/HCC) Mixed hyperlipidemia Vertigo Dizziness and giddiness Closed fracture of neck of right femur with routine healing, subsequent encounter Atherosclerosis of aorta (CMS/HCC) Atherosclerosis of aorta Vertigo- Primary Dizziness and giddiness [facility]* Diagnosis B12 deficiency- Primary Essential hypertension (CMS/HCC) Unspecified essential hypertension Acquired hypothyroidism (CMS/HCC) Unspecified hypothyroidism Decreased platelet count (CMS/HCC) Unspecified thrombocytopenia Mixed hyperlipidemia (CMS/HCC) Mixed hyperlipidemia Vertigo Dizziness and giddiness Closed fracture of neck of right femur with routine healing, subsequent encounter Atherosclerosis of aorta (CMS/HCC) Atherosclerosis of aorta Vertigo- Primary Dizziness and giddiness documented [facility]* Diagnosis B12 deficiency- Primary Essential hypertension (CMS/HCC) Unspecified essential hypertension Acquired hypothyroidism (CMS/HCC) Unspecified hypothyroidism Decreased platelet count (CMS/HCC) Unspecified thrombocytopenia Mixed hyperlipidemia (CMS/HCC) Mixed hyperlipidemia Vertigo Dizziness and giddiness Closed fracture of neck of right femur with routine healing, subsequent encounter Atherosclerosis of aorta (CMS/HCC) Atherosclerosis of aorta Spinal stenosis, unspecified spinal region- Primary Lumbar and sacral arthritis Lumbosacral spondylosis without myelopathy documented [facility] Diagnosis B12 deficiency- Primary Essential hypertension (CMS/HCC) Unspecified essential hypertension Acquired hypothyroidism (CMS/HCC) Unspecified hypothyroidism Decreased platelet count (CMS/HCC) Unspecified thrombocytopenia Mixed hyperlipidemia (CMS/HCC) Mixed hyperlipidemia Vertigo Dizziness and giddiness Closed fracture of neck of right femur with routine healing, subsequent encounter Atherosclerosis of aorta (CMS/HCC) Atherosclerosis of aorta Spinal stenosis, unspecified spinal region- Primary Lumbar and sacral arthritis Lumbosacral spondylosis without myelopathy documented [facility]* Diagnosis B12 deficiency- Primary Essential hypertension (CMS/HCC) Unspecified essential hypertension Acquired hypothyroidism (CMS/HCC) Unspecified hypothyroidism Decreased platelet count (CMS/HCC) Unspecified thrombocytopenia Mixed hyperlipidemia (CMS/HCC) Mixed hyperlipidemia Vertigo Dizziness and giddiness Closed fracture of neck of right femur with routine healing, subsequent encounter Atherosclerosis of aorta (CMS/HCC) Atherosclerosis of aorta Essential hypertension (CMS/HCC) Unspecified essential hypertension documented [facility]* Diagnosis B12 deficiency- Primary Essential hypertension (CMS/HCC) Unspecified essential hypertension Acquired hypothyroidism (CMS/HCC) Unspecified hypothyroidism Decreased platelet count (CMS/HCC) Unspecified thrombocytopenia Mixed hyperlipidemia (CMS/HCC) Mixed hyperlipidemia Vertigo Dizziness and giddiness Closed fracture of neck of right femur with routine healing, subsequent encounter Atherosclerosis of aorta (CMS/HCC) Atherosclerosis of aorta Spinal stenosis, unspecified spinal region- Primary Lumbar and sacral arthritis Lumbosacral spondylosis without myelopathy documented [facility]* Diagnosis B12 deficiency- Primary Essential hypertension (CMS/HCC) Unspecified essential hypertension Acquired hypothyroidism (CMS/HCC) Unspecified hypothyroidism Decreased platelet count (CMS/HCC) Unspecified thrombocytopenia Mixed hyperlipidemia (CMS/HCC) Mixed hyperlipidemia Vertigo Dizziness and giddiness Closed fracture of neck of right femur with routine healing, subsequent encounter Atherosclerosis of aorta (CMS/HCC) Atherosclerosis of aorta Spinal stenosis, unspecified spinal region- Primary Lumbar and sacral arthritis Lumbosacral spondylosis without myelopathy documented [facility]* Diagnosis B12 deficiency- Primary Essential hypertension (CMS/HCC) Unspecified essential hypertension Acquired hypothyroidism (CMS/HCC) Unspecified hypothyroidism Decreased platelet count (CMS/HCC) Unspecified thrombocytopenia Mixed hyperlipidemia (CMS/HCC) Mixed hyperlipidemia Vertigo Dizziness and giddiness Closed fracture of neck of right femur with routine healing, subsequent encounter Atherosclerosis of aorta (CMS/HCC) Atherosclerosis of aorta Spinal stenosis, unspecified spinal region- Primary Lumbar and sacral arthritis Lumbosacral spondylosis without myelopathy documented [facility]* Diagnosis B12 deficiency- Primary Essential hypertension (CMS/HCC) Unspecified essential hypertension Acquired hypothyroidism (CMS/HCC) Unspecified hypothyroidism Decreased platelet count (CMS/HCC) Unspecified thrombocytopenia Mixed hyperlipidemia (CMS/HCC) Mixed hyperlipidemia Vertigo Dizziness and giddiness Closed fracture of neck of right femur with routine healing, subsequent encounter Atherosclerosis of aorta (CMS/HCC) Atherosclerosis of aorta Spinal stenosis, unspecified spinal region- Primary Lumbar and sacral arthritis Lumbosacral spondylosis without myelopathy documented in [facility]* Diagnosis B12 deficiency- Primary Essential hypertension (CMS/HCC) Unspecified essential hypertension Acquired hypothyroidism (CMS/HCC) Unspecified hypothyroidism Decreased platelet count (CMS/HCC) Unspecified thrombocytopenia Mixed hyperlipidemia (CMS/HCC) Mixed hyperlipidemia Vertigo Dizziness and giddiness Closed fracture of neck of right femur with routine healing, subsequent encounter Atherosclerosis of aorta (CMS/HCC) Atherosclerosis of aorta Essential hypertension (CMS/HCC)- Primary Unspecified essential hypertension B12 deficiency Acquired hypothyroidism (CMS/HCC) Unspecified hypothyroidism Anemia, unspecified type documented [facility]* Diagnosis B12 deficiency- Primary Essential hypertension (CMS/HCC) Unspecified essential hypertension Acquired hypothyroidism (CMS/HCC) Unspecified hypothyroidism Decreased platelet count (CMS/HCC) Unspecified thrombocytopenia Mixed hyperlipidemia (CMS/HCC) Mixed hyperlipidemia Vertigo Dizziness and giddiness Closed fracture of neck of right femur with routine healing, subsequent encounter Atherosclerosis of aorta (CMS/HCC) Atherosclerosis of aorta Spinal stenosis, unspecified spinal region- Primary Lumbar and sacral arthritis Lumbosacral spondylosis without myelopathy documented [facility]* Diagnosis B12 deficiency- Primary Essential hypertension (CMS/HCC) Unspecified essential hypertension Acquired hypothyroidism (CMS/HCC) Unspecified hypothyroidism Decreased platelet count (CMS/HCC) Unspecified thrombocytopenia Mixed hyperlipidemia (CMS/HCC) Mixed hyperlipidemia Vertigo Dizziness and giddiness Closed fracture of neck of right femur with routine healing, subsequent encounter Atherosclerosis of aorta (CMS/HCC) Atherosclerosis of aorta Spinal stenosis, unspecified spinal region- Primary Lumbar and sacral arthritis Lumbosacral spondylosis without myelopathy documented in [facility]* Diagnosis B12 deficiency- Primary Essential hypertension (CMS/HCC) Unspecified essential hypertension Acquired hypothyroidism (CMS/HCC) Unspecified hypothyroidism Decreased platelet count (CMS/HCC) Unspecified thrombocytopenia Mixed hyperlipidemia (CMS/HCC) Mixed hyperlipidemia Vertigo Dizziness and giddiness Closed fracture of neck of right femur with routine healing, subsequent encounter Atherosclerosis of aorta (CMS/HCC) Atherosclerosis of aorta Spinal stenosis, unspecified spinal region- Primary Lumbar and sacral arthritis Lumbosacral spondylosis without myelopathy documented in [facility]* Diagnosis B12 deficiency- Primary Essential hypertension (CMS/HCC) Unspecified essential hypertension Acquired hypothyroidism (CMS/HCC) Unspecified hypothyroidism Decreased platelet count (CMS/HCC) Unspecified thrombocytopenia Mixed hyperlipidemia (CMS/HCC) Mixed hyperlipidemia Vertigo Dizziness and giddiness Closed fracture of neck of right femur with routine healing, subsequent encounter Atherosclerosis of aorta (CMS/HCC) Atherosclerosis of aorta Spinal stenosis, unspecified spinal region- Primary Lumbar and sacral arthritis Lumbosacral spondylosis without myelopathy documented in this [facility]* Diagnosis B12 deficiency- Primary Essential hypertension (CMS/HCC) Unspecified essential hypertension Acquired hypothyroidism (CMS/HCC) Unspecified hypothyroidism Decreased platelet count (CMS/HCC) Unspecified thrombocytopenia Mixed hyperlipidemia (CMS/HCC) Mixed hyperlipidemia Vertigo Dizziness and giddiness Closed fracture of neck of right femur with routine healing, subsequent encounter Atherosclerosis of aorta (CMS/HCC) Atherosclerosis of aorta Essential hypertension (CMS/HCC) Unspecified essential hypertension Dizziness Dizziness and giddiness Acquired hypothyroidism (CMS/HCC) Unspecified hypothyroidism [facility] N[facility]ative - Reported* Type Description Date Medical History hypercholestolemia Medical History stenosis [facility] Other Reason for visit Narrative* Rehabilitation - Outpatient (Routine) - Authorized Specialty Diagnoses / Procedures Referred By Contac t Referred To Contact Physical Therapy Diagnoses Vertigo Spinal stenosis, unspecified spinal region Lumbar and sacral arthritis Procedures [place] OFFICE/OUTPATIENT NEW HIGH MDM 60 MINUTES Divina Castellano, DIABETES SPECIALIST [address] [place] [address] Phone: tel: fax: Alana Lopez, PT Referral ID Status Reason Start Date Expiration Date Visits Requested Visits Authorized [id number] Authorized Specialty Services Required 4 11/14/2024 99 99 [facility] N[facility]* Rehabilitation - Outpatient (Routine) - Authorized Specialty Diagnoses / Procedures Referred By Contac t Referred To Contact Physical Therapy Diagnoses Spinal stenosis, unspecified spinal region Lumbar and sacral arthritis Procedures [place] OFFICE/OUTPATIENT NEW HIGH MDM 60 MINUTES Divina Castellano, DIABETES SPECIALIST [address] [place] [address] Phone: tel: fax: Alana Lopez, PT Referral ID Status Reason Start Date Expiration Date Visits Requested Visits Authorized [id number] Authorized Specialty Services Required 4 05/14/2025 1 90 [facility] N[facility]* Rehabilitation - Outpatient (Routine) - Authorized Specialty Diagnoses / Procedures Referred By Contac t Referred To Contact Physical Therapy Diagnoses Spinal stenosis, unspecified spinal region Lumbar and sacral arthritis Procedures [place] OFFICE/OUTPATIENT NEW HIGH MDM 60 MINUTES Divina Castellano, DIABETES SPECIALIST [address] [place] [address] Phone: tel: fax: Alana Lopez, PT Referral ID Status Reason Start Date Expiration Date Visits Requested Visits Authorized [id number] Authorized Specialty Services Required 4 08/08/2024 1 90 [facility] N[facility]* Rehabilitation - Outpatient (Routine) - Closed Specialty Diagnoses / Procedures Referred By Contac t Referred To Contact Physical Therapy Diagnoses Spinal stenosis, unspecified spinal region Lumbar and sacral arthritis Procedures [place] OFFICE/OUTPATIENT NEW HIGH MDM 60 MINUTES Divina Castellano NP [address] [place] [address] Phone: tel: fax: Alana Lopez PT Referral ID Status Reason Start Date Expiration Date V isits Requested Visits Authorized [id number] Closed Specialty Services Required 06/05/2024 08/08/2024 1 90 [facility] Summary Purpose Family History No Family History Records FoundNo Family History Records FoundNo Family History Records FoundNo Family History Records Found Advance Directives No Advanced Directives Records Found Advance Directive Response Recorded Date/ Time Advance Directives No May 10, 2023 11:40am Chief Complaint and Reason for Visit Chief Complaint M25.551 Reason for Referral Specialty Diagnoses / Procedures Referred By Contac t Referred To Contact Physical Therapy Diagnoses Vertigo Spinal stenosis, unspecified spinal region Lumbar and sacral arthritis Procedures [place] OFFICE/OUTPATIENT NEW HIGH MDM 60 MINUTES Divina Castellano NP [address] [place] [address] Alana Lopez PT Referral ID Status Reason Start Date Expiration Date Visits Requested Visits Authorized [id number] Authorized Specialty Services Required 11/14/2024 99 99 Additional Source Comments INFORMATION SOURCE (unrecogn ized section and content) DATE CREATED AUTHOR 12/11/2022 [facility] Me dical Specialist DATE CREATED AUTHOR AUTHOR'S ORGANIZ ATION 10/19/2023 [facility] DATE CREATED AUTHOR AUTHOR'S ORGANIZ ATION 05/24/2024 [facility] DATE CREATED AUTHOR AUTHOR'S ORGANIZ ATION 08/04/2024 [facility] dical Specialists EPIC REASON FOR VISIT (unrecogniz ed section and content) Reason Onset Date Comments Vertigo 05/18/2024 Called to offer PT Eval for vertigo raghav Lopez PT on 05/23 @ 8:00 am; requested call back terry. Call Back 05/18/2024 She contacted an d scheduled per offer 05/23 raghav Lopez PT. Reason Comments Vertigo Care Teams (unrecognized sec tion and content) Team Status: Active Member Role Status Dates Roslyn Briscoe DIABETES SPECIALIST-C Primary Care Provider Activ e Team Status: Inactive Member Role Status Dates Roslyn Briscoe DIABETES SPECIALIST-C Primary Care Provider Telma Holland MD Attending Provider Active Metallurgist Helper Relationship Specialty Start Date End Date Cynthia Leong MD [address] [place] [address] PCP - [employer] 08/09/20 Cynthia Leong MD [address] [place] [address] PCP - General Family Medicine 01/18/24 Libby Ward NP [address] [place] [address] Nurse Practitioner Family Medicine 02/05/23 Metallurgist Helper Relationship Specialty Start Date End Date Cynthia Leong MD [address] [place] [address] PCP - [employer] 08/09/20 Cynthia Leong MD [address] [place] [address] PCP - General Family Medicine 01/18/24 Libby Ward NP [address] [place] [address] Nurse Practitioner Family Medicine 02/05/23 Metallurgist Helper Relationship Specialty Start Date End Date Cynthia Leong MD [address] [place] [address] PCP - [employer] 08/09/20 Cynthia Leong MD [address] [place] [address] PCP - General Family Medicine 01/18/24 Libby Ward NP [address] [place] [address] Nurse Practitioner Family Medicine 02/05/23 Metallurgist Helper Relationship Specialty Start Date End Date Cynthia Leong MD [address] [place] [address] PCP - [employer] 08/09/20 Cynthia Leong MD [address] [place] [address] PCP - General Family Medicine 01/18/24 Libby Ward NP [address] [place] [address] Nurse Practitioner Family Medicine 02/05/23 Metallurgist Helper Relationship Specialty Start Date End Date Cynthia Leong MD [address] [place] [address] PCP - [employer] 08/09/20 Cynthia Leong MD [address] [place] [address] PCP - General Family Medicine 01/18/24 Libby Ward NP [address] [place] [address] Nurse Practitioner Family Medicine 02/05/23 Metallurgist Helper Relationship Specialty Start Date End Date Cynthia Leong MD [address] [place] [address] PCP - [employer] 08/09/20 Cynthia Leong MD [address] [place] [address] PCP - General Family Medicine 01/18/24 Libby Ward NP [address] [place] [address] Nurse Practitioner Family Medicine 02/05/23 Metallurgist Helper Relationship Specialty Start Date End Date Cynthia Leong MD [address] [place] [address] PCP - [employer] 08/09/20 Cynthia Leong MD [address] [place] [address] PCP - General Family Medicine 01/18/24 Libby Ward NP [address] [place] [address] Nurse Practitioner Family Medicine 02/05/23 Metallurgist Helper Relationship Specialty Start Date End Date Cynthia Leong MD [address] [place] [address] PCP - [employer] 08/09/20 Cynthia Leong MD [address] [place] [address] PCP - General Family Medicine 01/18/24 Libby Ward NP [address] [place] [address] Nurse Practitioner Family Medicine 02/05/23 Metallurgist Helper Relationship Specialty Start Date End Date Cynthia Leong MD [address] [place] [address] PCP - [employer] 08/09/20 Cynthia Leong MD [address] [place] [address] PCP - General Family Medicine 01/18/24 Libby Ward NP [address] [place] [address] Nurse Practitioner Family Medicine 02/05/23 Metallurgist Helper Relationship Specialty Start Date End Date Cynthia Leong MD [address] [place] [address] PCP - [employer] 08/09/20 Cynthia Leong MD [address] [place] [address] PCP - General Family Medicine 01/18/24 Libby Ward NP [address] [place] [address] Nurse Practitioner Family Medicine 02/05/23 Metallurgist Helper Relationship Specialty Start Date End Date Cynthia Leong MD [address] [place] [address] PCP - [employer] 08/09/20 Cynthia Leong MD [address] [place] [address] PCP - General Family Medicine 01/18/24 Libby Ward NP [address] [place] [address] Nurse Practitioner Family Medicine 02/05/23 Metallurgist Helper Relationship Specialty Start Date End Date Cynthia Leong MD [address] [place] [address] PCP - [employer] 08/09/20 Cynthia Leong MD [address] [place] [address] PCP - General Family Medicine 01/18/24 Libby Ward NP [address] [place] [address] Nurse Practitioner Family Medicine 02/05/23 Metallurgist Helper Relationship Specialty Start Date End Date Cynthia Leong MD [address] [place] [address] PCP - [employer] 08/09/20 Cynthia Leong MD [address] [place] [address] PCP - General Family Medicine 01/18/24 Libby Ward NP [address] [place] [address] Nurse Practitioner Family Medicine 02/05/23 Metallurgist Helper Relationship Specialty Start Date End Date Cynthia Leong MD [address] [place] [address] PCP - [employer] 08/09/20 Cynthia Leong MD [address] [place] [address] PCP - General Family Medicine 01/18/24 Libby Ward NP [address] [place] [address] Nurse Practitioner Family Medicine 02/05/23 Metallurgist Helper Relationship Specialty Start Date End Date Cynthia Leong MD [address] [place] [address] PCP - [employer] 08/09/20 Cynthia Leong MD [address] [place] [address] PCP - General Family Medicine 01/18/24 Libby Ward NP [address] [place] [address] Nurse Practitioner Family Medicine 02/05/23 Metallurgist Helper Relationship Specialty Start Date End Date Cynthia Leong MD [address] [place] [address] PCP - [employer] 08/09/20 Cynthia Leong MD [address] [place] [address] PCP - General Family Medicine 01/18/24 Libby Ward NP [address] [place] [address] Nurse Practitioner Family Medicine 02/05/23 Metallurgist Helper Relationship Specialty Start Date End Date Cynthia Leong MD [address] [place] [address] PCP - [employer] 08/09/20 Cynthia Leong MD [address] [place] [address] PCP - General Family Medicine 01/18/24 Libby Ward NP [address] [place] [address] Nurse Practitioner Family Medicine 02/05/23 Metallurgist Helper Relationship Specialty Start Date End Date Cynthia Leong MD [address] [place] [address] PCP - [employer] 08/09/20 Cynthia Leong MD [address] [place] [address] PCP - General Family Medicine 01/18/24 Libby Ward NP [address] [place] [address] Nurse Practitioner Family Medicine 02/05/23 Metallurgist Helper Relationship Specialty Start Date End Date Cynthia Leong MD [address] [place] [address] PCP - [employer] 08/09/20 Cynthia Leong MD [address] [place] [address] PCP - General Family Medicine 01/18/24 Libby Ward NP [address] [place] [address] Nurse Practitioner Family Medicine 02/05/23 Metallurgist Helper Relationship Specialty Start Date End Date Cynthia Leong MD [address] [place] [address] PCP - [employer] 08/09/20 Cynthia Leong MD [address] [place] [address] PCP - General Family Medicine 01/18/24 Libby Ward NP [address] [place] [address] Nurse Practitioner Family Medicine 02/05/23 Metallurgist Helper Relationship Specialty Start Date End Date Cynthia Leong MD [address] [place] [address] PCP - [employer] 08/09/20 Cynthia Leong MD [address] [place] [address] PCP - General Family Medicine 01/18/24 Libby Ward NP [address] [place] [address] Nurse Practitioner Family Medicine 02/05/23 Metallurgist Helper Relationship Specialty Start Date End Date Cynthia Leong MD [address] [place] [address] PCP - [employer] 08/09/20 Cynthia Leong MD [address] [place] [address] PCP - General Family Medicine 01/18/24 Libby Ward NP [address] [place] [address] Nurse Practitioner Family Medicine 02/05/23 Metallurgist Helper Relationship Specialty Start Date End Date Cynthia Leong MD [address] [place] [address] PCP - [employer] 08/09/20 Cynthia Leong MD [address] [place] [address] PCP - General Family Medicine 01/18/24 Libby Ward NP [address] [place] [address] Nurse Practitioner Family Medicine 02/05/23 Metallurgist Helper Relationship Specialty Start Date End Date Cynthia Leong MD [address] [place] [address] PCP - Aet 08/09/20 Cynthia Leong MD [address] [place] [address] PCP - General Family Medicine 01/18/24 Libby Ward NP [address] [place] [address] Nurse Practitioner Family Medicine 02/05/23 Goals (unrecognized section and content) Goals may [...] BE BASED ON THE PRIMARY CLINICAL RECORDS. [facility] [employer] [facility]. provides no warranty or guarantee of the accuracy or completeness of information in this document.
== END 2024-08-31 09:50 | disposition home or self-care (01) ==
LOC: PM 09:50
PROVIDERS: PCP Family Medicine; Visit Provider Nurse Practitioner
DX: M53.3 Sacrococcygeal disorders, not elsewhere classified (principal); Z79.891 Long term (current) use of opiate analgesic; M48.062 Spinal stenosis, lumbar region with neurogenic claudication; M51.369 Other intervertebral disc degeneration, lumbar region without mention of lumbar back pain or lower extremity pain; M47.816 Spondylosis without myelopathy or radiculopathy, lumbar region
CPT/HCPCS: G0463

== ENCOUNTER 2024-11-30 09:46 | Outpatient (OUT) | payer MEDICARE, SELFPAY ==
--- NOTE | 2024-11-30 10:30 | PM.CN ---
Consult Note: HPI Data of Consult Patient: known to practice within the last 3 years Requesting Physician: Shaneka Llanes NP Primary Care Provider: FERNIE LEONG Consult Narrative Reason for consult: low back, right leg pain Narrative: 78yof who presents for assessment. worsening pain and weakness into right lower extremity. imaging consistent with severe stenosis at l4-5 and l5-s1. previously had lumbar tfesi, which helped significantly, but then patient fell shortly thereafter and fractured right hip, which required surgical intervention. continues in a series of provider directed home exercises >6 weeks, without lasting benefit. uses tylenol PRN, tramadol was no longer needed per pt previously underwent right L4-5 L5-S1 TFESI with >50% improvement in pain and functional ability for 3 months and right SIJ injection with >50% improvement for 3 months. Pt found significant benefit from formal PT and injection therapy and since stopping PT 6 weeks ago has noticed functional decline, she is having to utilize her walker and a cane and cannot stand or walk for long periods of time. noting frequent falls as well. cc:: CC: Shaneka Llanes NP Review of Systems ROS Status of ROS 10 or more systems reviewed and unremarkable except as noted in history and below Musculoskeletal Reports: back pain, extremity pain and joint pain PFSH [facility] Medical History Essential (primary) hypertension ?I10 - Essential (primary) hypertension (ICD-10) Vertigo ?R42 - Dizziness and giddiness (ICD-10) Sinus arrhythmia seen on electrocardiogram ?I49.8 - Other specified cardiac arrhythmias (ICD-10) Hypothyroid ?E03.9 - Hypothyroidism, unspecified (ICD-10) Sacroiliac dysfunction ?M53.3 - Sacrococcygeal disorders, not elsewhere classified (ICD-10) Lumbar spondylosis ?M47.816 - Spondylosis without myelopathy or radiculopathy, lumbar region (ICD-10) Lumbar stenosis with neurogenic claudication ?M48.062 - Spinal stenosis, lumbar region with neurogenic claudication (ICD-10) DDD (degenerative disc disease), lumbar ?M51.36 - Other intervertebral disc degeneration, lumbar region (ICD-10) Low back pain ?M54.50 - Low back pain, unspecified (ICD-10) Irregular heartbeat ?I49.9 - Cardiac arrhythmia, unspecified (ICD-10) Acid reflux ?K21.9 - Gastro-esophageal reflux disease without esophagitis (ICD-10) Rheumatoid arthritis ?M06.9 - Rheumatoid arthritis, unspecified (ICD-10) Osteoarthritis ?M19.90 - Unspecified osteoarthritis, unspecified site (ICD-10) Hearing deficit ?H91.90 - Unspecified hearing loss, unspecified ear (ICD-10) Hypertension ?I10 - Essential (primary) hypertension (ICD-10) High cholesterol ?E78.00 - Pure hypercholesterolemia, unspecified (ICD-10) Family History Father Family history of hypertension Family history of stroke Mother Family history of hypertension Family history of myocardial infarction, Onset Age: 45 Social History Within the past year, how often did you have a drink containing alcohol: monthly or less Within the past year, how often did you have six or more drinks on one occasion: never Smoking status: Never smoker Non-prescribed substance use: denies use 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 Known occupational exposures/hazards: No Highest level of school completed/degree received: Master's degree Are you now , , , , never or living with a partner: In a typical week, how many times do you talk on the telephone with family, friends, or neighbors: twice per week How often do you get together with friends or relatives: twice per week How often do you attend oriental orthodox or buddhist services: 4 or more times per year Little interest or pleasure in doing things: not at all Feeling down, depressed, or hopeless: not at all Feel stressed/tense/nervous/anxious/difficulty sleeping: only a little Life stressor details: medical issues Gender Identity: female Meds Home Medications and Allergies Home Medications ?Medication ?Instructions ?Recorded ?Confirmed ?Type atorvastatin 10 mg tablet 10 mg PO DAILY 07/29/23 05/15/24 History levothyroxine 75 mcg tablet 75 mcg PO DAILY 07/29/23 05/15/24 History metoprolol succinate 25 mg 25 mg PO DAILY 07/29/23 05/15/24 History tablet,extended release 24 hr omeprazole 40 mg capsule,delayed 40 mg PO DAILY 07/29/23 05/15/24 History release acetaminophen 500 mg tablet 1,000 mg PO Q6H PRN pain 09/13/23 05/15/24 History (Tylenol Extra Strength) meclizine 25 mg tablet 25 mg PO BID 09/13/23 10/07/23 History fluticasone propionate 50 2 spray intranasal QD #16 grams 10/12/23 05/15/24 Rx mcg/actuation nasal spray,suspension hydrocodone 5 mg-acetaminophen 325 1 tab PO Q4H PRN Pain Scale 4-6 10/12/23 04/17/24 Rx mg tablet #20 tabs hydrocodone 5 mg-acetaminophen 325 2 tab PO Q4H PRN Pain Scale 7-10 10/12/23 05/15/24 Rx mg tablet #20 tabs meclizine 25 mg tablet 25 mg PO TID PRN dizziness #30 tabs 10/12/23 05/15/24 Rx tramadol 50 mg tablet 50 mg PO BID PRN pain #60 tabs 04/14/24 05/15/24 Rx diazepam 5 mg tablet (Valium) 5 mg PO Q8H 04/17/24 05/15/24 History tramadol 50 mg tablet 50 mg PO BID PRN pain #60 tabs 05/11/24 Rx tramadol 50 mg tablet 50 mg PO BID PRN pain #60 tabs 06/12/24 Rx tramadol 50 mg tablet 25 mg (1/2 x 50 mg) PO QID PRN 07/12/24 Rx pain #60 tabs Allergies Allergy/AdvReac Type Severity Reaction Status Date / Time No Known Drug Allergies Allergy Verified 05/15/24 10:56 Exam Constitutional Documenting provider has reviewed patient's vital signs: yes Common normals: no apparent distress, oriented x3, healthy appearing, alert and well nourished General appearance: cooperative [facility] Common normals: normocephalic, hearing grossly normal bilaterally and moist oral mucous membranes Head and scalp: normocephalic Eye Common normals: PERRL Pupil: PERRL Neck & C-Spine Common normals: full ROM General: normal visual inspection Chest Common normals: inspection of chest normal Respiratory Common normals: normal respiratory effort, no retractions and no use of accessory muscles Back & Pelvis Lumbar spine/lower back: ROM limited and straight leg raise negative bilaterally; no pain with ROM Sacroiliac joints: SI joint(s) abnormal Other: strength 4/5 in RLE 5/5 in LLE decreased sensation to right L4,5,S1 dermatomal pattern increased pain in back, as well as RLE with heaviness and weakness while standing or walking. symptoms improve with sitting, lying down, and forward flexion Neuro Common normals: oriented x3 Sensorium/orientation: alert Gait (neuro): assistive device used cane Motor exam: no movement abnormalities noted Psych Common normals: mental status grossly normal, thought process normal, cooperative, affect normal, speech normal and activity/motor behavior normal Speech: normal speech Thought process: normal thought process Results Additional Findings Additional findings: If on a controlled substance or opioids, I have checked an [place]ARRS report on this patient and there are no aberrancies noted in the prescribing history.??If on a controlled substance or opioid a drug screen was completed and reviewed within the last year, and if there has not been a drug screen completed we ordered one today to monitor higher risk, state monitored pain medication use. As part of providing excellent, safe, comprehensive care, the following was completed at our patient's visit: 1. A medication reconciliation and review to ensure accurate knowledge of current/active medications, including asking our patients to inform us about any [id number] medications or herbal remedies/nutritional supplements/alternative remedies. 2. A review to specifically ensure our patients have had annual screening for screening for depression, screening for tobacco use, and screening for unhealthy alcohol use. For concerning screenings had a discussion with the patient, provided patient education, and recommended follow-up with primary care provider when appropriate. If patient noted with a risk of falling, they received education on strength, gait, and balance training to prevent future risk of falling. Portions of this note may have been carried over from the previous visit and updated as appropriate. Please note this office utilizes paper charting in addition to the electronic medical record. A list of current medications, vitals, and PMH is available there as the clinical staff outside of myself do not have access to [employer] charting during the clinic day operations. As part of providing quality comprehensive care the current medications, vitals, and PMH were reviewed in the paper chart. Assessment and Plan Assessment and Plan (1) Sacroiliitis: (2) Sacroiliac joint dysfunction of right side: (3) Lumbar stenosis with neurogenic claudication: (4) DDD (degenerative disc disease), lumbar: (5) Lumbar spondylosis: Plan declining repeat right L4,5 L5,S1 TFESI and right SIJ injection PT for lumbar stenosis with NC and sacroilitis defer additional medication management, continue otc tylenol and motrin f/u PRN at this time
== END 2024-11-30 09:47 | disposition home or self-care (01) ==
LOC: PM 09:46
PROVIDERS: PCP Family Medicine; Visit Provider Nurse Practitioner
DX: M46.1 Sacroiliitis, not elsewhere classified (principal); M53.3 Sacrococcygeal disorders, not elsewhere classified; M48.062 Spinal stenosis, lumbar region with neurogenic claudication; M51.369 Other intervertebral disc degeneration, lumbar region without mention of lumbar back pain or lower extremity pain; M47.816 Spondylosis without myelopathy or radiculopathy, lumbar region
CPT/HCPCS: G0463

== ENCOUNTER 2025-01-07 09:19 | Emergency (ER) | payer MEDICARE, SELFPAY ==
--- OUTSIDE RECORDS SUMMARY | 2023-10-08 11:00 | XMS_ITS ---
Author Organization [facility] Address [address] [place] [address] Care Team Providers Care Seed Service Advisor Name Role Phone Charles Hendricks Unavailable [phone] REASON FOR VISIT Right hip hemiarthroplasty Problems Problem Type SNOMED Code ICD Code Onset Dates Problem Status W/U Status Risk Notes Problem Closed fracture of neck of femur (873668613) Closed fracture of neck of right femur, initial encounter (S72.001A) Active confirmed Problem Fall () Fall, initial encounter (W19.XXXA) Active confirmed Problem Vertigo (644603402) Vertigo (R42) Active confirmed Encounters Encounter Location Date Provider Diagnosis [facility] [address] [place] [address] 10/08/2023 Charles Hendricks Closed fracture of neck of right femur, initial encounter S72.001A ; Vertigo R42 and Fall, initial encounter W19.XXXA Assessments Encounter Date Diagnosis (ICD Code) Assessment Notes Treatment Notes Treatment Clinical Notes Section Notes 10/08/2023 Closed fracture of neck of right femur, initial encounter (ICD-10 - S72.001A) 10/08/2023 Vertigo (ICD-10 - R42) 10/08/2023 Fall, initial encounter (ICD-10 - W19.XXXA) Plan Of Treatment No Information Progress Notes * Adali LIZRichardOB: 4 (78 yo F)Acc No.[id number]:10/08/2023 Patient: Yvonne KOVACS Provider: Hailey Hendricks MD :1945 A ge:77 Y S ex:Female Date:10/08/2023 Address:[address] [id number] * Images: * Sign off status: Completed true * Provider: Hailey Hendricks MD Date: 0 10/08/2023 Generated for Abdullahi le/Jyoti/Sheldon on: 0 01/07/2025 09:28 AM EDT
--- OUTSIDE RECORDS SUMMARY | 2023-10-25 07:20 | XMS_ITS ---
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 Reviewed date:10/25/2023 03:43:01 PM Interpretation: Performing Lab: Notes/Report: REASON FOR VISIT RIGHT HIP FX Encounters Encounter Location Date Provider Diagnosis [facility] [address] [place] [address] [place] [address] 10/25/2023 Charles Hendricks Closed fracture of neck [...] Appt Details Follow Up: 6 Weeks, Reason: Progress Notes * Franchesca LIZeDOB: 4 (78 yo F)Acc No.[id number]:10/25/2023 Patient: Yvonne KOVACS Provider: Hailey Hendricks MD :1945 A ge:77 Y S ex:Female Date:10/25/2023 Address:[address] [id number] Subjective: * Chief Complaints: * R IGHT [...] * Provider: Hailey Hendricks MD Date: 0 10/25/2023 Generated for Abdullahi le/Jyoti/Lexiiitting on: 0 01/07/2025 09:29 AM EDT History and Physical Notes * [...]
--- OUTSIDE RECORDS SUMMARY | 2023-12-06 06:50 | XMS_ITS ---
Author Organization [facility] Address [address] [place] [address] Care Team Providers Care Literacy Consultant Name Role Phone Charles Hendricks Unavailable [phone] REASON FOR VISIT Right hip FX, DOI 10/07/23 Encounters Encounter Location Date Provider Diagnosis [facility] [address] [place] [address] [address] [place] [address] 12/06/2023 Charles Hendricks Plan Of Treatment No Information Progress Notes * Franchesca LIZeDOB: (79 yo F)Acc No.[id number]:12/06/2023 Patient: Yvonne KOVACS Provider: Hailey Hendricks MD :1945 A ge:77 Y S ex:Female Date:12/06/2023 [facility] [id number] Subjective: * Chief Complaints: * 1 . Right hip FX, DOI 10/07/23. * Medical History: Objective: * Vitals: Assessment: Plan: * Treatment: Forms: * Images: * Electronic signature of Ned Hendricks MD on 01/07/2025 at 09:29 AM EDT Sign off status: Pending * Provider: Hailey Hendricks MD Date: 12/06/2023 Generated for Abdullahi le/Jyoti/Lexiiitting on: 01/07/2025 09:29 AM EDT
--- OUTSIDE RECORDS SUMMARY | 2024-12-26 10:00 | XMS_ITS | Encounter Summary ---
Author Organization [facility] Address [address] [facility] [place] [address] Care Team Providers Care Senior Technical Architect Name Role Phone Cynthia Hernandez MD Unavailable Libby Ward NP Unavailable [phone] Cynthia Hernandez MD Primary Care Provider [phone] Reason for Visit * Rehabilitation - Outpatient (Routine) - Authorized Specialty Diagnoses / Procedures Referred By Suni conde Referred To Contact Physical Therapy Diagnoses Spinal stenosis, lumbar region with neurogenic claudication Procedures CT PHYSICAL THERAPY EVALUATION LOW COMPLEX [address] OFFICE/OUTPATIENT NEW HIGH MDM 60 MINUTES Kulwant García MD [address] [place] [address] Phone: tel: fax: Mayur Agarwal, PT [address] [facility] [address] [place] [address] Phone: tel: fax: Referral ID Status Reason Start Date Expiration Date V isits Requested Visits Authorized [id number] Authorized 12/01/2024 08/08/2025 99 99 Encounter Details Date Type Department Care Team (Late st Contact Info) Description 12/26/2024 10:00 AM EDT Treatment [facility] [address] [facility] [address] [place] [address] Clara Echeverria, UPHOLSTERY COVERS INSPECTOR Lumbar paraspinal muscle spasm (Primary Dx); Weakness [...] this encounter Progress Notes * Clara Echeverria, UPHOLSTERY COVERS INSPECTOR - 12/26/2024 10:00 AM EDT Images from [...] to be instructed in home exercise program. Garment Worker Goals: To be met in 10 weeks [...] documented in this encounter Plan of Treatment Upcoming Encounters Date Type Department Care Team (Late st Contact Info) Description 01/08/2025 1:30 PM EDT Treatment [facility] [address] [facility] [address] [place] [address] Clara Echeverria, UPHOLSTERY COVERS INSPECTOR 01/11/2025 10:30 AM EDT Treatment [facility] [address] [facility] [address] [place] [address] Mayur Agarwal, PT [address] [facility] [address] [place] [address] 01/15/2025 10:30 AM EDT Treatment [facility] [address] [place] [address] [place] [address] Clara Echeverria, UPHOLSTERY COVERS INSPECTOR 01/18/2025 11:30 AM EDT Treatment [facility] [address] [place] [address] [place] [address] Hill Saunders, UPHOLSTERY COVERS INSPECTOR 01/22/2025 10:30 AM EDT Treatment [facility] [address] [place] [address] [place] [address] Clara Echeverria, UPHOLSTERY COVERS INSPECTOR 01/25/2025 11:30 AM EDT Treatment [facility] [address] [place] [address] [place] [address] Hill Saunders, UPHOLSTERY COVERS INSPECTOR 01/29/2025 11:00 AM EDT Treatment [facility] [address] [facility] [address] [place] [address] Mayur Agarwal, PT [address] [facility] [address] [place] [address] 02/01/2025 11:30 AM EDT Treatment [facility] [address] [facility] [address] [place] [address] Clara Echeverria, THELMA documented as of this encounter Visit Diagnoses Diagnosis Lumbar paraspinal muscle spasm- Primary Other symptoms referable to back Weakness of both lower extremities Frequent falls documented in this encounter Additional Health Concerns Assessment Noted Time PHQ-9 Depression Total Score: 12 024 2:11 PM EST documented as of this encounter Care Teams Senior Technical Architect Relationship Specialty Start Date End Date Cynthia Hernandez MD [address] [place] [address] PCP - [employer] 08/09/20 Cynthia Hernandez MD [address] [place] [address] PCP - General Family Medicine 01/18/24 Libby Ward NP [address] [place] [address] Nurse Practitioner Family Medicine 02/05/23 documented as of this encounter
--- OUTSIDE RECORDS SUMMARY | 2024-12-28 11:30 | XMS_ITS | Encounter Summary ---
Author Organization [facility] Address [address] [facility] [place] [address] Care Team Providers Care Heeler Machine Name Role Phone Cynthia Hernandez MD Unavailable Libby Ward NP Unavailable [phone] Cynthia Hernandez MD Primary Care Provider [phone] Reason for Visit * Rehabilitation - Outpatient (Routine) - Authorized Specialty Diagnoses / Procedures Referred By Suni conde Referred To Contact Physical Therapy Diagnoses Spinal stenosis, lumbar region with neurogenic claudication Procedures [place] PHYSICAL THERAPY EVALUATION LOW COMPLEX 20 MINS MS OFFICE/OUTPATIENT NEW HIGH MDM 60 MINUTES Kulwant García MD [address] [place] [address] Phone: tel: fax: Mayur Agarwal, PT [address] [facility] [address] [place] [address] Phone: tel: fax: Referral ID Status Reason Start Date Expiration Date V isits Requested Visits Authorized [id number] Authorized 12/01/2024 08/08/2025 99 99 Encounter Details Date Type Department Care Team (Late st Contact Info) Description 12/28/2024 11:30 AM EDT Treatment [facility] [address] [facility] [address] [place] [address] Clara Echeverria, BARREL BRIDGE ASSEMBLER Lumbar paraspinal muscle spasm (Primary Dx); Weakness [...] to be instructed in home exercise program. Dungeon Master Goals: To be met in 10 weeks [...] Treatment [facility] [address] [facility] [address] [place] [address] Clara Echeverria, BARREL BRIDGE ASSEMBLER 01/11/2025 10:30 AM EDT Treatment [facility] [address] [facility] [address] [place] [address] Mayur Agarwal, PT [address] [facility] [address] [place] [address] 01/15/2025 10:30 AM EDT Treatment [facility] [address] [facility] [address] [place] [address] Clara Echeverria, BARREL BRIDGE ASSEMBLER 01/18/2025 11:30 AM EDT Treatment [facility] [address] [facility] [address] [place] [address] Hill Saunders, BARREL BRIDGE ASSEMBLER 01/22/2025 10:30 AM EDT Treatment [facility] [address] [facility] [address] [place] [address] Clara Echeverria, BARREL BRIDGE ASSEMBLER 01/25/2025 11:30 AM EDT Treatment [facility] [address] [facility] [address] [place] [address] Hill Saunders, BARREL BRIDGE ASSEMBLER 01/29/2025 11:00 AM EDT Treatment [facility] [address] [place] [address] [place] [address] Mayur Agarwal, PT [address] [facility] [address] [place] [address] 02/01/2025 11:30 AM EDT Treatment [facility] [address] [facility] [address] [place] [address] Clara Echeverria PTA documented as of this encounter Visit Diagnoses Diagnosis Lumbar paraspinal muscle spasm- Primary Other symptoms referable to back Weakness of both lower extremities documented in this encounter Additional Health Concerns Assessment Noted Time PHQ-9 Depression Total Score: 12 024 2:11 PM EST documented as of this encounter Care Teams Heeler Machine Relationship Specialty Start Date End Date Cynthia Hernandez MD [address] [facility] [place] [address] PCP - [employer] 08/09/20 Cynthia Hernandez MD [address] [facility] [place] [address] PCP - General Family Medicine 01/18/24 Libby Ward NP [address] [place] [address] Nurse Practitioner Family Medicine 02/05/23 documented as of this encounter
--- OUTSIDE RECORDS SUMMARY | 2024-12-29 10:00 | XMS_ITS | Encounter Summary ---
Author Organization [facility] Address [address] [facility] [place] [address] Care Team Providers Care Allopathic Doctor Name Role Phone Cynthia Hernandez MD Unavailable Libby Ward NP Unavailable Cynthia Hernandez MD Primary Care Provider [phone] Reason for Visit * Reason Comments Medicare Annual Wellness Visit Subsequen t Encounter Details Date Type Department Care Team (Latest Contact Info) Description 2024 10:00 AM EDT Office Visit [facility] [address] [place] [address] Cynthia Hernandez MD [address] [place] [address] Peripheral polyneuropathy (Primary Dx); Wellness [...] by direct observation Three Word Registration: Banana, [place], Chair Clock Drawing: Normal Clock - 2 [...] stenosis. A consultation with a neurosurgeon in [place] is being considered to explore potential interventions [...] helps. - Consultation with a neurosurgeon in [place] is planned to explore surgical options. - [...] independence. Living will and durable power of contract attorney reviewed. Updated patient problem list and [...] [address] [place] [address] Clara Echeverria, LAUNDRY SUPERVISOR 01/11/2025 10:30 AM EDT Treatment [facility] [address] [place] [address] Mayur Agarwal, PT [address] [place] [address] 01/15/2025 10:30 AM EDT Treatment [facility] [address] [place] [address] Clara Echeverria, LAUNDRY SUPERVISOR 01/18/2025 11:30 AM EDT Treatment [facility] [address] [place] [address] Hill Saunders, LAUNDRY SUPERVISOR 01/22/2025 10:30 AM EDT Treatment [facility] [address] [place] [address] Clara Echeverria, LAUNDRY SUPERVISOR 01/25/2025 11:30 AM EDT Treatment [facility] [address] [place] [address] Hill Saunders, LAUNDRY SUPERVISOR 01/29/2025 11:00 AM EDT Treatment [facility] [address] [place] [address] Mayur Agarwal, PT [address] [place] [address] 02/01/2025 11:30 AM EDT Treatment [facility] [address] [place] [address] Clara Echeverria, LAUNDRY SUPERVISOR Scheduled Orders Name Type Priority Associated Diagnoses Orde r Schedule Protein electrophoresis, urine Lab Routine Peripheral polyneuropathy Expected: 2024 (Approximate), Expires: 2025 Lyme disease, PCR Lab Routine Peripheral polyneuropathy Expected: 2024 (Approximate), Expires: 2025 documented as of this encounter Procedures Procedure Name Priority Date/Time Associated Diagnosis Comments ANTINUCLEAR ANTIBODIES TITER AND PATTERN Routine 2024 10:41 AM EDT TSH W/REFLEX TO FT4 Routine 2024 1 0:41 AM EDT Peripheral polyneuropathy METHYLMALONIC ACID, SERUM Routine 2024 10:41 AM EDT Peripheral polyneuropathy HEPATITIS PANEL, ACUTE Routine 2024 10:41 AM EDT Peripheral polyneuropathy SED RATE BY MODIFIED WESTERGREN Routine 2024 10:41 AM EDT Peripheral polyneuropathy JOANIE SCREEN W/REFLEX Routine 2024 1 0:41 AM EDT Peripheral polyneuropathy PROTEIN ELECTROPHORESIS, SERUM Routine 2024 10:41 AM EDT Peripheral polyneuropathy VITAMIN B12 Routine 2024 10:41 AM EDT Peripheral polyneuropathy documented in this encounter Results * (ABNORMAL) ANTINUCLEAR ANTIBODIES TITER AND PATTERN [...] AC-1: Homogeneous International Consensus on JOANIE Patterns (https://doi.[email or web address]/sumo-[email or web address]) 2024 10:4 1 AM EDT 2024 10:43 AM EDT Narrative [facility] - 01/04/2025 10:03 AM EDT MULTIPLE TESTING PRIORITIES; ROUTINE TESTING TO FOLLOW. Resulting Agency Comment Performing Organization Information Site ID: QPT Name: [facility] Address: [address] [place] [address], [address] [place] [phone] Director: Juan Alberto Harrell MD us Cynthia Hernandez MD LAB BLOOD ORDERABLES Final Re sult QUE[facility] * Hepatitis panel, acute (2024 10:41 AM EDT) HEPATITIS A IGM NON-REACTI VE NON-REACT ASAEL [facility] Comment: For additional information, please refer to http://Paylocity/faq/FHX659 (This link is being provided for informational/ educational purposes only.) HEPATITIS B SURFACE ANTIGEN NON-REACTI VE NON-REACT ASAEL [facility] Comment: For additional information, please refer to http://Paylocity/faq/DVM196 (This link is being provided for informational/ educational purposes only.) HEPATITIS B CORE ANTIBODY (IGM) NON-REACTI VE NON-REACT ASAEL [facility] Comment: For additional information, please refer to http://Paylocity/faq/UEP662 (This link is being provided for informational/ educational purposes only.) HEPATITIS C ANTIBODY NON-REACTI VE NON-REACT ASAEL [facility] Comment: HCV antibody was non-reactive. There is no laboratory evidence of HCV infection. In most cases, no further action is required. However, if recent HCV exposure is suspected, a test for HCV RNA (test code 24063) is suggested. For additional information please refer to http://Paylocity/faq/OID47n5 (This link is being provided for informational/ educational purposes only.) Blood Venous blood specimen / Unknown 2024 10:41 AM EDT 2024 10:43 AM EDT Narrative [facility] - 01/04/2025 10:03 AM EDT MULTIPLE TESTING PRIORITIES; ROUTINE TESTING TO FOLLOW. Resulting Agency Comment Performing Organization Information Site ID: QPT Name: [facility] Address: [address], [address] [place] [address] Director: Juan Alberto Harrell MD Cynthia Hernandez [...] neural tube defects and intrauterine growth restriction. [facility] utilized Multi-Modal Decomposition (MMD) analysis to establish first and second trimester-specific MMA reference intervals in , as given below: MMA, First trimester (<13 wks gestation): 58-167 nmol/L MMA, Second trimester (13-23 wks gestation): 63-241 nmol/L Note 1 This test was developed and its analytical performance characteristics have been determined by [facility]. It has not been cleared or approved by the FDA. This assay has been validated pursuant to the CLIA regulations and is used for clinical purposes. Blood Venous blood specimen / Unknown 2024 10:41 AM EDT 2024 10:43 AM EDT Narrative [facility] - 01/04/2025 10:03 AM EDT MULTIPLE TESTING PRIORITIES; ROUTINE TESTING TO FOLLOW. Resulting Agency Comment Performing Organization Information Site ID: QPT Name: [facility] Address: [address], [address] [place] [address] Director: Juan Alberto Harrell MD us Cynthia Hernandez MD LAB BLOOD ORDERABLES Final Re sult [facility] * Sedimentation rate, automated (2024 10:41 AM EDT) SED RATE BY MODIFIED EULALIAERGREN 9 < OR = 30 mm/h [facility] Blood Venous blood specimen / Unknown 2024 10:41 AM EDT 2024 10:43 AM EDT Narrative [facility] - 01/04/2025 10:03 AM EDT MULTIPLE TESTING PRIORITIES; ROUTINE TESTING TO FOLLOW. Resulting Agency Comment Performing Organization Information Site ID: QPT Name: [facility] Address: [address] [place] [address], [address] [place] [phone] Director: Juan Alberto Harrell MD us Cynthia Hernandez MD LAB BLOOD ORDERABLES Final Re sult Performing Organization Address [facility] Co de Phone Number QUEST * (ABNORMAL) JOANIE [...] indicated. For additional information, please refer to http://education.ShopAdvisor.Kii/faq/PJT031 (This link is being provided for informational/ educational purposes only.) Blood Venous blood specimen / Unknown 2024 10:41 AM EDT 2024 10:43 AM EDT Narrative [facility] - 01/04/2025 10:03 AM EDT MULTIPLE TESTING PRIORITIES; ROUTINE TESTING TO FOLLOW. Resulting Agency Comment Performing Organization Information Site ID: QPT Name: [facility] Address: [address] [place] [address], [address] [place] [phone] Director: Juan Alberto Harrell MD us Cynthia Hernandez MD LAB BLOOD ORDERABLES Final Re sult Performing Organization Address City/[facility] Co de Phone Number [facility] * TSH W/REFLEX TO FT4 (2024 10:41 AM EDT) TSH W/REFLEX TO FT4 1.61 0.40 - 4.50 mIU/L [facility] 2024 10:4 1 AM EDT 2024 10:43 AM EDT Narrative [facility] - 01/04/2025 10:03 AM EDT MULTIPLE TESTING PRIORITIES; ROUTINE TESTING TO FOLLOW. Resulting Agency Comment Performing Organization Information Site ID: QPT Name: [facility] Address: [address] [place] [address], [address] [place] [phone] Director: Juan Alberto Harrell MD Cynthia Hernandez MD LAB BLOOD ORDERABLES Final Re sult Performing Organization Address [facility] de Phone Number [facility] * (ABNORMAL) Protein [...] 2024 10:43 AM EDT Narrative [facility] - 01/04/2025 10:03 AM EDT MULTIPLE TESTING PRIORITIES; ROUTINE TESTING TO FOLLOW. Resulting Agency Comment Performing Organization Information Site ID: QPT Name: [facility] Address: [address] [place] [address], [address] [place] [phone] Director: Juan Alberto Harrell MD us Cynthia Hernandez MD LAB BLOOD ORDERABLES Final Re sult Performing Organization Address [facility] de Phone Number QUEST * Vitamin B12 (2024 10:41 AM EDT) VITAMIN B12 217 200 - 1,100 pg/mL [...] 2024 10:43 AM EDT Narrative [facility] - 01/04/2025 10:03 AM EDT MULTIPLE TESTING PRIORITIES; ROUTINE TESTING TO FOLLOW. Resulting Agency Comment Performing Organization Information Site ID: QPT Name: [facility] Address: [address] [place] [address], [address] [place] [phone] Director: Juan Alberto Harrell MD us Cynthia Hernandez MD LAB BLOOD ORDERABLES Final Re sult Performing Organization Address [facility] de Phone Number QUEST documented in this encounter Visit Diagnoses [...] documented as of this encounter Care Teams Allopathic Doctor Relationship Specialty Start Date End Date Cynthia Hernandez MD [address] [facility] [place], [place] [phone] PCP - Aet 08/09/20 Cynthia Hernandez MD [address] [facility] [place] [place], [place] [phone] PCP - General Family Medicine 01/18/24 Libby Ward NP [address] [facility] [place] [address] Nurse Practitioner Family Medicine 02/05/23 documented as of this encounter
--- OUTSIDE RECORDS SUMMARY | 2025-01-02 11:30 | XMS_ITS | Encounter Summary ---
Author Organization [facility] Address [address] [facility] [place] [address] Care Team Providers Care Donor Recruitment Manager Name Role Phone Cynthia Hernandez MD Unavailable [phone] Libby Ward NP Unavailable [phone] Cynthia Hernandez MD Primary Care Provider [phone] Reason for Visit * Rehabilitation - Outpatient (Routine) - Authorized Specialty Diagnoses / Procedures Referred By Suni conde Referred To Contact Physical Therapy Diagnoses Spinal stenosis, lumbar region with neurogenic claudication Procedures [place] PHYSICAL THERAPY EVALUATION LOW COMPLEX 20 MINS [place] OFFICE/OUTPATIENT NEW HIGH MDM 60 MINUTES Kulwant García MD [address] [place] [address] Phone: tel: fax: Mayur Agarwal, PT [address] [facility] [address] [place] [address] Phone: tel: fax: Referral ID Status Reason Start Date Expiration Date V isits Requested Visits Authorized [id number] Authorized 12/01/2024 08/08/2025 99 99 Encounter Details Date Type Department Care Team (Late st Contact Info) Description 01/02/2025 11:30 AM EDT Treatment [facility] [address] [facility] [address] [place] [address] Mayur Agarwal, PT [address] [facility] [address] [place] [address] Lumbar paraspinal muscle spasm (Primary Dx); Weakness [...] as of this encounter Progress Notes * Mayur Agarwal, PT - 01/02/2025 11:30 AM EDT Images from the original note were not included. Physical Therapy Treatment Visit Patient Name: Dominique Liz Today's Date: 01/02/2025 Encounter Diagnoses Name Primary? Lumbar paraspinal muscle spasm Yes Weakness of both lower extremities Frequent falls Visit number: 7 Timed Code Treatment: 38 minutes Total Treatment Time: 50 minutes Time In: 11:30 AM Time Out: 12:20 PM History: Pt. Presents to PT with [...] Precautions: fall risk Subjective: reports bad day, Pt. Does feel better after PT for 48 hours. Pain is the mornings is worst. Pain: 7/10 LB Objective: PT Evaluation (12/07/24) Lumbar ROM: grossly limited 25% in all planes Joint: hypomobility in lumbar spine grossly Strength: right LE 4-/5, left LE 4-/5 Balance: poor dynamic standing Functional: moderate use of left UE with sit to stand transfers Gait: SPC, shuffling gait, decreased stride length, slow pace. Treatment: Manual Therapy: (12 minutes) Delivered manual ther pt prone: Lower lumbar spine MFR to lumbar spine, gentle grade II PA mobs to lumbar spine to improve mobility and decrease pain Therapeutic Exercise: (16 minutes supervised ) guided pt through ther [...] muscle soreness Assessment: Pt has participated in 7 PT session with start of POC on 12/07/24 for chronic low back pain, LE weakness, poor balance. Manual techniques continue to help improve her functional mobility and decreaselow back pain. Lumbar paraspinal muscle tightness still present. Continue PT to help improve her quality of life. Outcome Measure: in chart Short Term Goal: To be met in 2 weeks Goal 1: Pt to be instructed in home exercise program. Level Vial Inside Grinder Goals: To be met in 10 weeks [...] [address] [facility] [address] [place] [address] Clara Echeverria, RELOCATION COUNSELOR 01/11/2025 10:30 AM EDT Treatment [facility] [address] [facility] [address] [place] [address] Mayur Agarwal, PT [address] [facility] [address] [place] [address] 01/15/2025 10:30 AM EDT Treatment [facility] [address] [facility] [address] [place] [address] Clara Echeverria, RELOCATION COUNSELOR 01/18/2025 11:30 AM EDT Treatment [facility] [address] [facility] [address] [place] [address] Hill Saunders, RELOCATION COUNSELOR 01/22/2025 10:30 AM EDT Treatment [facility] [address] [facility] [address] [place] [address] Clara Echeverria, RELOCATION COUNSELOR 01/25/2025 11:30 AM EDT Treatment [facility] [address] [facility] [address] [place] [address] Hill Saunders, RELOCATION COUNSELOR 01/29/2025 11:00 AM EDT Treatment [facility] [address] [facility] [address] [place] [address] Mayur Agarwal, PT [address] [facility] [address] [place] [address] 02/01/2025 11:30 AM EDT Treatment [facility] [address] [facility] [address] [place] [address] Clara Echeverria PTA documented as of this encounter Visit Diagnoses Diagnosis Lumbar paraspinal muscle spasm- Primary Other symptoms referable to back Weakness of both lower extremities Frequent falls documented in this encounter Additional Health Concerns Assessment Noted Time PHQ-9 Depression Total Score: 0 12/30/19 25 9:00 AM EDT documented as of this encounter Care Teams Donor Recruitment Manager Relationship Specialty Start Date End Date Cynthia Hernandez MD [address] [place] [address] PCP - [employer]et[employer] 08/09/20 Cynthia Hernandez MD [address] [place] [address] PCP - General Family Medicine 01/18/24 Libby Ward NP [address] [place] [address] Nurse Practitioner Family Medicine 02/05/23 documented as of this encounter
--- OUTSIDE RECORDS SUMMARY | 2025-01-04 12:00 | XMS_ITS | Encounter Summary ---
Author Organization [facility] Address [address] [facility] [place] [address] Care Team Providers Care Black Topper Name Role Phone Cynthia Hernandez MD Unavailable [phone] Libby Ward NP Unavailable [phone] Cynthia Hernandez MD Primary Care Provider Reason for Visit * Rehabilitation - Outpatient (Routine) - Authorized Specialty Diagnoses / Procedures Referred By Suni conde Referred To Contact Physical Therapy Diagnoses Spinal stenosis, lumbar region with neurogenic claudication Procedures [place] PHYSICAL THERAPY EVALUATION LOW COMPLEX 20 MINS [place] OFFICE/OUTPATIENT NEW HIGH MDM 60 MINUTES Kulwant García MD [address] [place] [address] Phone: tel: fax: Mayur Agarwal, PT [address] [facility] [address] [place] [address] Phone: tel: fax: Referral ID Status Reason Start Date Expiration Date V isits Requested Visits Authorized [id number] Authorized 12/01/2024 08/08/2025 99 99 Encounter Details Date Type Department Care Team (Late st Contact Info) Description 01/04/2025 12:00 PM EDT Treatment [facility] [address] [facility] [address] [place] [address] Clara Echeverria, TELEPHONE MECHANIC Lumbar paraspinal muscle spasm (Primary Dx); Weakness [...] to be instructed in home exercise program. Processor Helper Goals: To be met in 10 weeks [...] necessary. Please sign below. Date: Cosigned by Mauyr Agarwal, PT at 01/04/2025 5:07 PM EDT documented in this encounter Plan of Treatment Upcoming Encounters Date Type Department Care Team (Late st Contact Info) Description 01/08/2025 1:30 PM EDT Treatment [facility] [address] [facility] [address] [place] [address] Clara Echeverria, TELEPHONE MECHANIC 01/11/2025 10:30 AM EDT Treatment [facility] [address] [facility] [address] [place] [address] Mayur Agarwal, PT [address] [facility] [address] [place] [address] 01/15/2025 10:30 AM EDT Treatment [facility] [address] [facility] [address] [place] [address] Clara Echeverria, TELEPHONE MECHANIC 01/18/2025 11:30 AM EDT Treatment [facility] [address] [facility] [address] [place] [address] Hill Saunders, TELEPHONE MECHANIC 01/22/2025 10:30 AM EDT Treatment [facility] [address] [facility] [address] [place] [address] Clara Echeverria, TELEPHONE MECHANIC 01/25/2025 11:30 AM EDT Treatment [facility] [address] [facility] [address] [place] [address] Hill Saunders, TELEPHONE MECHANIC 01/29/2025 11:00 AM EDT Treatment [facility] [address] [facility] [address] [place] [address] Mayur Agarwal, PT [address] [facility] [address] [place] [address] 02/01/2025 11:30 AM EDT Treatment [facility] [address] [facility] [address] [place] [address] Clara Echeverria PTA documented as of this encounter Visit Diagnoses Diagnosis Lumbar paraspinal muscle spasm- Primary Other symptoms referable to back Weakness of both lower extremities documented in this encounter Additional Health Concerns Assessment Noted Time PHQ-9 Depression Total Score: 0 12/30/19 25 9:00 AM EDT documented as of this encounter Care Teams Black Topper Relationship Specialty Start Date End Date Cynthia Hernandez MD [address] [place] [address] PCP - Aetna 08/09/20 Cynthia Hernandez MD [address] [facility] [place] [address] PCP - General Family Medicine 01/18/24 Libby Ward NP [address] [facility] [place] [address] Nurse Practitioner Family Medicine 02/05/23 documented as of this encounter
[2025-01-07 09:21] VITALS: BP 176/94; PULSE 92; TEMP 36.4; O2SAT 98; BMI 22.8
--- OUTSIDE RECORDS SUMMARY | 2025-01-07 09:28 | XMS_ITS | Encounter Summary ---
Author Organization [facility] Address [address] [place] [address] Care Team Providers Care Director Of Education And Training Name Role Phone Cynthia Hernandez MD Unavailable [phone] Libby Ward NP Unavailable [phone] Cynthia Hernandez MD Primary Care Provider [phone] Encounter Details Date Type Department Care Team (Latest Contact Info) Description 12/26/2024 Travel Social History Tobacco Use Types Packs/Day Years [...] Date Recorded Patient Health Questionnaire-2 Score 0 10/06/2024 Comments Unknown Sex and Gender Information Value Date Recorded Sex Assigned at Not on file Legal Sex Female 7:18 PM EDT Gender Identity Female 10/21/2022 7:18 PM EDT Sexual Orientation Not on file documented as of this encounter Plan of Treatment Upcoming Encounters Date Type Department Care Team ( Contact Info) Description 01/08/2025 1:30 PM EDT Treatment [facility] [address] [facility] [address] [place] [address] Clara Echeverria, CLAM DREDGER 01/11/2025 10:30 AM EDT Treatment [facility] [address] [facility] [address] [place] [address] Myaur Agarwal, PT [address] [facility] [address] [place] [address] 01/15/2025 10:30 AM EDT Treatment [facility] [address] [facility] [address] [place] [address] Clara Echeverria, CLAM DREDGER 01/18/2025 11:30 AM EDT Treatment [facility] [address] [facility] [address] [place] [address] Hill Saunders, CLAM DREDGER 01/22/2025 10:30 AM EDT Treatment [facility] [address] [facility] [address] [place] [address] Clara Echeverria, CLAM DREDGER 01/25/2025 11:30 AM EDT Treatment [facility] [address] [facility] [address] [place] [address] Hill Saunders, CLAM DREDGER 01/29/2025 11:00 AM EDT Treatment [facility] [address] [facility] [address] [place] [address] Mayur Agarwal, PT [address] [facility] [address] [place] [address] 02/01/2025 11:30 AM EDT Treatment [facility] [address] [facility] [address] [place] [address] Clara Echeverria, CLAM DREDGER documented as of this encounter Visit Diagnoses Not on filedocumented in this encounter Additional Health Concerns Assessment Noted Time PHQ-9 Depression Total Score: 12 024 2:11 PM EST documented as of this encounter Care Teams Director Of Education And Training Relationship Specialty Start Date End Date Cynthia Hernandez MD [address] [facility] [place] [address] PCP - Aet 08/09/20 Cynthia Hernandez MD [address] [facility] [place], [place] [address] PCP - General Family Medicine 01/18/24 Libby Ward NP [address] [facility] [place] [address] Nurse Practitioner Family Medicine 02/05/23 documented as of this encounter
--- OUTSIDE RECORDS SUMMARY | 2025-01-07 09:28 | XMS_ITS | Encounter Summary ---
Author Organization [facility] Address [address] [facility] [place] [address] Care Team Providers Care Email Marketing Processor Name Role Phone Cynthia Hernandez MD Unavailable [phone] Cynthia Hernandez MD Primary Care Provider [phone] Libby Ward NP Unavailable [phone] Mariam Glasgow MD Primary Care Provider Cynthia Hernandez MD Primary Care Provider Encounter Details Date Type Department Care Team (Late st Contact Info) Description 10/13/2023 Abstract [facility] [address] [place] [address] Cynthia Hernandez MD [address] [place] [address] Social History Tobacco Use Types Packs/Day Years Used Date Smoking Tobacco: Never Smokeless Tobacco: Never Alcohol Use Standard Drinks/Week Comments Not Currently 0 (1 standard drink = 0.6 oz pure alcohol) 1 glass of wine past year. Caffeine intake : 1-2 cups/day coffee AUDIT-C [...] Answer Date Recorded Patient Health Questionnaire-2 Score 5 09/02/2023 Comments Unknown Sex and Gender Information Value [...] [address] [facility] [address] [place] [address] Clara Echeverria, GOLF TEACHER 01/11/2025 10:30 AM EDT Treatment [facility] [address] [facility] [address] [place] [address] Mayur Agarwal, PT [address] [facility] [address] [place] [address] 01/15/2025 10:30 AM EDT Treatment [facility] [address] [facility] [address] [place] [address] Clara Echeverria, GOLF TEACHER 01/18/2025 11:30 AM EDT Treatment [facility] [address] [facility] [address] [place] [address] Hill Saunders, GOLF TEACHER 01/22/2025 10:30 AM EDT Treatment [facility] [address] [facility] [address] [place] [address] Clara Echeverria, GOLF TEACHER 01/25/2025 11:30 AM EDT Treatment [facility] [address] [facility] [address] [place] [address] Hill Saunders, GOLF TEACHER 01/29/2025 11:00 AM EDT Treatment [facility] [address] [facility] [address] [place] [address] Mayur Agarwal, PT [address] [facility] [address] [place] [address] 02/01/2025 11:30 AM EDT Treatment [facility] [address] [place] [address] [place] [address] Clara Echeverria PTA documented as of this encounter Visit Diagnoses Not on filedocumented in this encounter Additional Health Concerns Assessment Noted Time PHQ-9 Depression Total Score: 12 024 2:11 PM EST documented as of this encounter Care Teams Email Marketing Processor Relationship Specialty Start Date End Date Cynthia Hernandez MD [address] [place] [address] PCP - Aetna 08/09/20 Cynthia Hernandez MD [address] [place] [address] PCP - General Family Medicine 02/05/23 12/28/23 Mariam Glasgow MD [address] [place] [address] PCP - General Geriatric Medicine 12/29/23 01/17/24 Cynthia Hernandez MD [address] [place] [address] PCP - General Family Medicine 01/18/24 Libby Ward NP [address] [place] [address] Nurse Practitioner Family Medicine 02/05/23 documented as of this encounter
--- OUTSIDE RECORDS SUMMARY | 2025-01-07 09:28 | XMS_ITS | Encounter Summary ---
Author Organization [facility] Address [address] [place] [address] Care Team Providers Care Coal Grader Name Role Phone Cynthia Hernandez MD Unavailable [phone] Libby Ward NP Unavailable [phone] Cynthia Hernandez MD Primary Care Provider [phone] Encounter Details Date Type Department Care Team (Late st Contact Info) Description 01/04/2025 Bamboo flowsheet [facility] [address] [place] [address] Clara Echeverria, THELMA Social History Tobacco Use Types Packs/Day Years [...] [address] [place] [address] Clara Echeverria, EMERGENCY PREPAREDNESS MANAGER 01/11/2025 10:30 AM EDT Treatment [facility] [address] [place] [address] Mayur Agarwal, PT [address] [place] [address] 01/15/2025 10:30 AM EDT Treatment [facility] [address] [place] [address] Clara Echeverria, EMERGENCY PREPAREDNESS MANAGER 01/18/2025 11:30 AM EDT Treatment [facility] [address] [place] [address] Hill Saunders, EMERGENCY PREPAREDNESS MANAGER 01/22/2025 10:30 AM EDT Treatment [facility] [address] [place] [address] Clara Echeverria, EMERGENCY PREPAREDNESS MANAGER 01/25/2025 11:30 AM EDT Treatment [facility] [address] [place] [address] Hill Saunders, EMERGENCY PREPAREDNESS MANAGER 01/29/2025 11:00 AM EDT Treatment [facility] [address] [place] [address] Mayur Agarwal, PT [address] [place] [address] 02/01/2025 11:30 AM EDT Treatment [facility] [address] [place] [address] Clara Echeverria, EMERGENCY PREPAREDNESS MANAGER documented as of this encounter Visit Diagnoses Not on filedocumented in this encounter Additional Health Concerns Assessment Noted Time PHQ-9 Depression Total Score: 0 12/30/19 25 9:00 AM EDT documented as of this encounter Care Teams Coal Grader Relationship Specialty Start Date End Date Cynthia Hernandez MD [address] [place] [address] PCP - [employer]et[employer] 08/09/20 Cynthia Hernandez MD [address] [place] [address] PCP - General Family Medicine 01/18/24 Libby Ward NP [address] [place] [address] Nurse Practitioner Family Medicine 02/05/23 documented as of this encounter
--- OUTSIDE RECORDS SUMMARY | 2025-01-07 09:28 | XMS_ITS | Encounter Summary ---
Author Organization [facility] Address [address] [facility] [place] [address] Care Team Providers Care Pharmacist Apprentice Name Role Phone Cynthia Hernandez MD Unavailable [phone] Cynthia Hernandez MD Primary Care Provider Libby Ward NP Unavailable [phone] Mariam Glasgow MD Primary Care Provider Cynthia Hernandez MD Primary Care Provider Encounter Details Date Type Department Care Team (Late st Contact Info) Description 10/10/2023 Abstract [facility] [address] [place] [address] Cynthia Hernandez MD [address] [place] [address] Social History Tobacco Use Types [...] [address] [place] [address] Clara Echeverria, PRODUCT MERCHANDISER 01/11/2025 10:30 AM EDT Treatment [facility] [address] [place] [address] Mayur Agarwal, PT [address] [place] [address] 01/15/2025 10:30 AM EDT Treatment [facility] [address] [place] [address] Clara Echeverria, PRODUCT MERCHANDISER 01/18/2025 11:30 AM EDT Treatment [facility] [address] [place] [address] Hill Saunders, PRODUCT MERCHANDISER 01/22/2025 10:30 AM EDT Treatment [facility] [address] [place] [address] Clara Echeverria, PRODUCT MERCHANDISER 01/25/2025 11:30 AM EDT Treatment [facility] [address] [place] [address] Hill Saunders, PRODUCT MERCHANDISER 01/29/2025 11:00 AM EDT Treatment [facility] [address] [place] [address] Mayur Agarwal, PT [address] [place] [address] 02/01/2025 11:30 AM EDT Treatment [facility] [address] [place] [address] Clara Echeverria PTA documented as of this encounter Visit Diagnoses Not on filedocumented in this encounter Additional Health Concerns Assessment Noted Time PHQ-9 Depression Total Score: 12 024 2:11 PM EST documented as of this encounter Care Teams Pharmacist Apprentice Relationship Specialty Start Date End Date Cynthia Hernandez MD [address] [place] [address] PCP - [employer]et[employer] 08/09/20 Cynthia Hernandez MD [address] [place] [address] PCP - General Family Medicine 02/05/23 12/28/23 Mariam Glasgow MD [address] [place] [address] PCP - General Geriatric Medicine 12/29/23 01/17/24 Cynthia Hernandez MD [address] [place] [address] PCP - General Family Medicine 01/18/24 Libby Ward NP [address] [place] [address] Nurse Practitioner Family Medicine 02/05/23 documented as of this encounter
--- OUTSIDE RECORDS SUMMARY | 2025-01-07 09:28 | XMS_ITS | Encounter Summary ---
Author Organization [facility] Address [address] [place] [address] Care Team Providers Care Jet Pilot Name Role Phone Cynthia Hernandez MD Unavailable [phone] Libby Ward NP Unavailable [phone] Cynthia Hernandez MD Primary Care Provider [phone] Encounter Details Date Type Department Care Team (Late st Contact Info) Description 12/28/2024 Bamboo flowsheet [facility] [address] [place] [address] Clara Echeverria, THELMA Social History Tobacco [...] [address] [place] [address] Clara Echeverria, PICC NURSE 01/11/2025 10:30 AM EDT Treatment [facility] [address] [place] [address] Mayur Agarwal, PT [address] [place] [address] 01/15/2025 10:30 AM EDT Treatment [facility] [address] [place] [address] Clara Echeverria, PICC NURSE 01/18/2025 11:30 AM EDT Treatment [facility] [address] [place] [address] Hill Saunders, PICC NURSE 01/22/2025 10:30 AM EDT Treatment [facility] [address] [place] [address] Clara Echeverria, PICC NURSE 01/25/2025 11:30 AM EDT Treatment [facility] [address] [place] [address] Hill Saunders, PICC NURSE 01/29/2025 11:00 AM EDT Treatment [facility] [address] [place] [address] Mayur Agarwal, PT [address] [place] [address] 02/01/2025 11:30 AM EDT Treatment [facility] [address] [place] [address] Clara Echeverria, PICC NURSE documented as of this encounter Visit Diagnoses Not on filedocumented in this encounter Additional Health Concerns Assessment Noted Time PHQ-9 Depression Total Score: 12 024 2:11 PM EST documented as of this encounter Care Teams Jet Pilot Relationship Specialty Start Date End Date Cynthia Hernandez MD [address] [place] [address] PCP - [employer] 08/09/20 Cynthia Hernandez MD [address] [place] [address] PCP - General Family Medicine 01/18/24 Libby Ward NP [address] [place] [address] Nurse Practitioner Family Medicine 02/05/23 documented as of this encounter
--- OUTSIDE RECORDS SUMMARY | 2025-01-07 09:28 | XMS_ITS | Encounter Summary ---
Author Organization [facility] Address [address] [place] [address] Care Team Providers Care Visual Designer Name Role Phone Cynthia Hernandez MD Unavailable Libby Ward NP Unavailable [phone] Cynthia Hernandez MD Primary Care Provider [phone] Encounter Details Date Type Department Care Team (Late st Contact Info) Description 12/26/2024 Bamboo flowsheet [facility] [address] [place] [address] Clara Echeverria, THELMA Social History Tobacco [...] [address] [place] [address] Clara Echeverria, NEUROPSYCHOLOGY SERVICE DIRECTOR 01/11/2025 10:30 AM EDT Treatment [facility] [address] [place] [address] Mayur Agarwal, PT [address] [place] [address] 01/15/2025 10:30 AM EDT Treatment [facility] [address] [place] [address] Clara Echeverria, NEUROPSYCHOLOGY SERVICE DIRECTOR 01/18/2025 11:30 AM EDT Treatment [facility] [address] [place] [address] Hill Saunders, NEUROPSYCHOLOGY SERVICE DIRECTOR 01/22/2025 10:30 AM EDT Treatment [facility] [address] [place] [address] Clara Echeverria, NEUROPSYCHOLOGY SERVICE DIRECTOR 01/25/2025 11:30 AM EDT Treatment [facility] [address] [place] [address] Hill Saunders, NEUROPSYCHOLOGY SERVICE DIRECTOR 01/29/2025 11:00 AM EDT Treatment [facility] [address] [place] [address] Mayur Agarwal, PT [address] [place] [address] 02/01/2025 11:30 AM EDT Treatment [facility] [address] [place] [address] Clara Echeverria, NEUROPSYCHOLOGY SERVICE DIRECTOR documented as of this encounter Visit Diagnoses Not on filedocumented in this encounter Additional Health Concerns Assessment Noted Time PHQ-9 Depression Total Score: 12 024 2:11 PM EST documented as of this encounter Care Teams Visual Designer Relationship Specialty Start Date End Date Cynthia Hernandez MD [address] [place] [address] PCP - [employer] 08/09/20 Cynthia Hernandez MD [address] [place] [address] PCP - General Family Medicine 01/18/24 Libby Ward NP [address] [place] [address] Nurse Practitioner Family Medicine 02/05/23 documented as of this encounter
--- OUTSIDE RECORDS SUMMARY | 2025-01-07 09:28 | XMS_ITS | Encounter Summary ---
Author Organization [facility] Address [address] [facility] [place] [address] Care Team Providers Care Barrel Inspector Tight Name Role Phone Cynthia Hernandez MD Unavailable [phone] Cynthia Hernandez MD Primary Care Provider Libby Ward NP Unavailable [phone] Mariam Glasgow MD Primary Care Provider Cynthia Hernandez MD Primary Care Provider [phone] Encounter Details Date Type Department Care Team (Late st Contact Info) Description 10/12/2023 Abstract [facility] [address] [place] [address] Cynthia Hernandez MD [address] [place] [address] Social History Tobacco Use Types [...] [address] [place] [address] Clara Echeverria, SUMMER LAW CLERK 01/11/2025 10:30 AM EDT Treatment [facility] [address] [place] [address] Mayur Agarwal, PT [address] [place] [address] 01/15/2025 10:30 AM EDT Treatment [facility] [address] [place] [address] Clara Echeverria, SUMMER LAW CLERK 01/18/2025 11:30 AM EDT Treatment [facility] [address] [place] [address] Hill Saunders, SUMMER LAW CLERK 01/22/2025 10:30 AM EDT Treatment [facility] [address] [place] [address] Clara Echeverria, SUMMER LAW CLERK 01/25/2025 11:30 AM EDT Treatment [facility] [address] [place] [address] Hill Saunders, SUMMER LAW CLERK 01/29/2025 11:00 AM EDT Treatment [facility] [address] [place] [address] Mayur Agarwal, PT [address] [place] [address] 02/01/2025 11:30 AM EDT Treatment [facility] [address] [place] [address] Clara Echeverria PTA documented as of this encounter Visit Diagnoses Not on filedocumented in this encounter Additional Health Concerns Assessment Noted Time PHQ-9 Depression Total Score: 12 024 2:11 PM EST documented as of this encounter Care Teams Barrel Inspector Tight Relationship Specialty Start Date End Date Cynthia Hernandez MD [address] [place] [address] PCP - [employer]et[employer] 08/09/20 Cynthia Hernandez MD [address] [place] [address] PCP - General Family Medicine 02/05/23 12/28/23 Mariam Glasgow MD [address] [place] [address] PCP - General Geriatric Medicine 12/29/23 01/17/24 Cynthia Hernandez MD [address] [place] [address] PCP - General Family Medicine 01/18/24 Libby Ward NP [address] [place] [address] Nurse Practitioner Family Medicine 02/05/23 documented as of this encounter
--- OUTSIDE RECORDS SUMMARY | 2025-01-07 09:28 | XMS_ITS | Encounter Summary ---
Author Organization [facility] Address [address] [place] [address] Care Team Providers Care Specialty Therapist Name Role Phone Cynthia Hernandez MD Unavailable [phone] Libby Ward NP Unavailable [phone] Cynthia Hernandez MD Primary Care Provider [phone] Encounter Details Date Type Department Care Team (Latest Contact Info) Description 01/04/2025 Travel Social History Tobacco Use Types Packs/Day [...] [address] [place] [address] Clara Echeverria, DANCING TEACHER 01/11/2025 10:30 AM EDT Treatment [facility] [address] [place] [address] Mayur Agarwal, PT [address] [place] [address] 01/15/2025 10:30 AM EDT Treatment [facility] [address] [place] [address] Clara Echeverria, DANCING TEACHER 01/18/2025 11:30 AM EDT Treatment [facility] [address] [place] [address] Hill Saunders, DANCING TEACHER 01/22/2025 10:30 AM EDT Treatment [facility] [address] [place] [address] Clara Echeverria, DANCING TEACHER 01/25/2025 11:30 AM EDT Treatment [facility] [address] [place] [address] Hill Saunders, DANCING TEACHER 01/29/2025 11:00 AM EDT Treatment [facility] [address] [place] [address] Mayur Agarwal, PT [address] [place] [address] 02/01/2025 11:30 AM EDT Treatment [facility] [address] [place] [address] Clara Echeverria, DANCING TEACHER documented as of this encounter Visit Diagnoses Not on filedocumented in this encounter Additional Health Concerns Assessment Noted Time PHQ-9 Depression Total Score: 0 12/30/19 25 9:00 AM EDT documented as of this encounter Care Teams Specialty Therapist Relationship Specialty Start Date End Date David, Cynthia, MD [address] [facility] [place] [address] PCP - Aet 08/09/20 Cynthia Hernandez MD [address] [facility] [place] [address] PCP - General Family Medicine 01/18/24 Libby Ward NP [address] [facility] [place] [address] Nurse Practitioner Family Medicine 02/05/23 documented as of this encounter
--- OUTSIDE RECORDS SUMMARY | 2025-01-07 09:28 | XMS_ITS | Encounter Summary ---
Author Organization [facility] Address [address] [facility] [place] [address] Care Team Providers Care Try Out Person Name Role Phone Cynthia Hernandez MD Unavailable Cynthia Hernandez MD Primary Care Provider [phone] Libby Ward NP Unavailable [phone] Mariam Glasgow MD Primary Care Provider Cynthia Hrenandez MD Primary Care Provider Encounter Details Date Type Department Care Team (Late st Contact Info) Description 10/10/2023 Abstract [facility] [address] [place] [address] Cynthia Hernandez MD [address] [place] [address] Social History Tobacco Use Types [...] [address] [place] [address] Clara Echeverria, PARALEGAL SPECIALIST 01/11/2025 10:30 AM EDT Treatment [facility] [address] [place] [address] Mayur Agarwal, PT [address] [place] [address] 01/15/2025 10:30 AM EDT Treatment [facility] [address] [place] [address] Clara Echeverria, PARALEGAL SPECIALIST 01/18/2025 11:30 AM EDT Treatment [facility] [address] [place] [address] Hill Saunders, PARALEGAL SPECIALIST 01/22/2025 10:30 AM EDT Treatment [facility] [address] [place] [address] Clara Echeverria, PARALEGAL SPECIALIST 01/25/2025 11:30 AM EDT Treatment [facility] [address] [place] [address] Hill Saunders, PARALEGAL SPECIALIST 01/29/2025 11:00 AM EDT Treatment [facility] [address] [place] [address] Mayur Agarwal, PT [address] [place] [address] 02/01/2025 11:30 AM EDT Treatment [facility] [address] [place] [address] Clara Echeverria PTA documented as of this encounter Visit Diagnoses Not on filedocumented in this encounter Additional Health Concerns Assessment Noted Time PHQ-9 Depression Total Score: 12 024 2:11 PM EST documented as of this encounter Care Teams Try Out Person Relationship Specialty Start Date End Date Cynthia Hernandez MD [address] [place] [address] PCP - [employer]et[employer] 08/09/20 Cynthia Hernandez MD [address] [place] [address] PCP - General Family Medicine 02/05/23 12/28/23 Mariam Glasgow MD [address] [place] [address] PCP - General Geriatric Medicine 12/29/23 01/17/24 Cynthia Hernandez MD [address] [place] [address] PCP - General Family Medicine 01/18/24 Libby Ward NP [address] [place] [address] Nurse Practitioner Family Medicine 02/05/23 documented as of this encounter
--- OUTSIDE RECORDS SUMMARY | 2025-01-07 09:28 | XMS_ITS | Encounter Summary ---
Author Organization [facility] Address [address] [facility] [place] [address] Care Team Providers Care Solar Manager Name Role Phone Cynthia Hernandez MD Unavailable Cynthia Hernandez MD Primary Care Provider [phone] Libby Ward NP Unavailable [phone] Mariam Glasgow MD Primary Care Provider Cynthia Hernandez MD Primary Care Provider Encounter Details Date Type Department Care Team (Late st Contact Info) Description 10/08/2023 Abstract [facility] [address] [place] [address] Cynthia Hernandez MD [address] [place] [address] Social History Tobacco Use Types [...] [address] [place] [address] Clara Echeverria, PRECAST WORKER 01/11/2025 10:30 AM EDT Treatment [facility] [address] [place] [address] Mayur Agarwal, PT [address] [place] [address] 01/15/2025 10:30 AM EDT Treatment [facility] [address] [place] [address] Clara Echeverria, PRECAST WORKER 01/18/2025 11:30 AM EDT Treatment [facility] [address] [place] [address] Hill Saunders, PRECAST WORKER 01/22/2025 10:30 AM EDT Treatment [facility] [address] [place] [address] Clara Echeverria, PRECAST WORKER 01/25/2025 11:30 AM EDT Treatment [facility] [address] [place] [address] Hill Saunders, PRECAST WORKER 01/29/2025 11:00 AM EDT Treatment [facility] [address] [place] [address] Mayur Agarwal, PT [address] [place] [address] 02/01/2025 11:30 AM EDT Treatment [facility] [address] [place] [address] Clara Echeverria PTA documented as of this encounter Visit Diagnoses Not on filedocumented in this encounter Additional Health Concerns Assessment Noted Time PHQ-9 Depression Total Score: 12 024 2:11 PM EST documented as of this encounter Care Teams Solar Manager Relationship Specialty Start Date End Date Cynthia Hernandez MD [address] [place] [address] PCP - [employer]et[employer] 08/09/20 Cynthia Hernandez MD [address] [place] [address] PCP - General Family Medicine 02/05/23 12/28/23 Mariam Glasgow MD [address] [place] [address] PCP - General Geriatric Medicine 12/29/23 01/17/24 Cynthia Hernandez MD [address] [place] [address] PCP - General Family Medicine 01/18/24 Libby Ward NP [address] [place] [address] Nurse Practitioner Family Medicine 02/05/23 documented as of this encounter
--- OUTSIDE RECORDS SUMMARY | 2025-01-07 09:28 | XMS_ITS | Encounter Summary ---
Author Organization [facility] Address [address] [facility] [place] [address] Care Team Providers Care Political Anthropologist Name Role Phone Cynthia Hernandez MD Unavailable Cynthia Hernandez MD Primary Care Provider Libby Ward NP Unavailable [phone] Mariam Glasgow MD Primary Care Provider Cynthia Hernandez MD Primary Care Provider Encounter Details Date Type Department Care Team (Late st Contact Info) Description 10/13/2023 Abstract [facility] [address] [place] [address] Cynthia Hernandez MD [address] [place] [address] Social History Tobacco Use Types [...] [address] [place] [address] Clara Echeverria, PREFITTER 01/11/2025 10:30 AM EDT Treatment [facility] [address] [place] [address] Mayur Agarwal, PT [address] [place] [address] 01/15/2025 10:30 AM EDT Treatment [facility] [address] [place] [address] Clara Echeverria, PREFITTER 01/18/2025 11:30 AM EDT Treatment [facility] [address] [place] [address] Hill Saunders, PREFITTER 01/22/2025 10:30 AM EDT Treatment [facility] [address] [place] [address] Clara Echeverria, PREFITTER 01/25/2025 11:30 AM EDT Treatment [facility] [address] [place] [address] Hill Saunders, PREFITTER 01/29/2025 11:00 AM EDT Treatment [facility] [address] [place] [address] Mayur Agarwal, PT [address] [place] [address] 02/01/2025 11:30 AM EDT Treatment [facility] [address] [place] [address] Clara Echeverria PTA documented as of this encounter Visit Diagnoses Not on filedocumented in this encounter Additional Health Concerns Assessment Noted Time PHQ-9 Depression Total Score: 12 024 2:11 PM EST documented as of this encounter Care Teams Political Anthropologist Relationship Specialty Start Date End Date Cynthia Hernandez MD [address] [place] [address] PCP - [employer]et[employer] 08/09/20 Cynthia Hernandez MD [address] [place] [address] PCP - General Family Medicine 02/05/23 12/28/23 Mariam Glasgow MD [address] [place] [address] PCP - General Geriatric Medicine 12/29/23 01/17/24 Cynthia Hernandez MD [address] [place] [address] PCP - General Family Medicine 01/18/24 Libby Ward NP [address] [place] [address] Nurse Practitioner Family Medicine 02/05/23 documented as of this encounter
--- OUTSIDE RECORDS SUMMARY | 2025-01-07 09:28 | XMS_ITS | Encounter Summary ---
Author Organization [facility] Address [address] [place] [address] Care Team Providers Care Plate Washer Name Role Phone Cynthia Hernandez MD Unavailable Cynthia Hernandez MD Primary Care Provider [phone] Libby Ward NP Unavailable [phone] Mariam Glasgow MD Primary Care Provider Cynthia Hernandez MD Primary Care Provider Encounter Details Date Type Department Care Team (Late st Contact Info) Description 10/10/2023 Orders Only [facility] [address] [place] [address] Cynthia Hernadnez MD [address] [place] [address] Social History Tobacco Use Types [...] [address] [place] [address] Clara Echeverria, VICE PRESIDENT OF OPERATIONS 01/11/2025 10:30 AM EDT Treatment [facility] [address] [place] [address] Mayur Agarwal, PT [address] [place] [address] 01/15/2025 10:30 AM EDT Treatment [facility] [address] [place] [address] Clara Echeverria, VICE PRESIDENT OF OPERATIONS 01/18/2025 11:30 AM EDT Treatment [facility] [address] [place] [address] Hill Saunders, VICE PRESIDENT OF OPERATIONS 01/22/2025 10:30 AM EDT Treatment [facility] [address] [place] [address] Clara Echeverria, VICE PRESIDENT OF OPERATIONS 01/25/2025 11:30 AM EDT Treatment [facility] [address] [place] [address] Hill Saunders, VICE PRESIDENT OF OPERATIONS 01/29/2025 11:00 AM EDT Treatment [facility] [address] [place] [address] Mayur Agarwal, PT [address] [place] [address] 02/01/2025 11:30 AM EDT Treatment [facility] [address] [place] [id number] Clara Echeverria PTA documented as of this encounter Visit Diagnoses Not on filedocumented in this encounter Additional Health Concerns Assessment Noted Time PHQ-9 Depression Total Score: 12 024 2:11 PM EST documented as of this encounter Care Teams Plate Washer Relationship Specialty Start Date End Date Cynthia Hernandez MD [address] [place] [address] PCP - [employer] 08/09/20 Cynthia Hernandez MD [address] [place] [address] PCP - General Family Medicine 02/05/23 12/28/23 Mariam Glasgow MD [address] [place] [address] PCP - General Geriatric Medicine 12/29/23 01/17/24 Cynthia Hernandez MD [address] [place] [address] PCP - General Family Medicine 01/18/24 Libby Ward NP [address] [place] [address] Nurse Practitioner Family Medicine 02/05/23 documented as of this encounter
--- OUTSIDE RECORDS SUMMARY | 2025-01-07 09:28 | XMS_ITS | Encounter Summary ---
Author Organization [facility] Address [address] [place] [address] Care Team Providers Care City Library Director Name Role Phone Cynthia Hernandez MD Unavailable [phone] Libby Ward NP Unavailable [phone] Cynthia Hernandez MD Primary Care Provider [phone] Encounter Details Date Type Department Care Team (Latest Contact Info) Description 12/28/2024 Travel Social History Tobacco Use Types Packs/Day [...] [address] [place] [address] Clara Echeverria, THERAPIST ASST 01/11/2025 10:30 AM EDT Treatment [facility] [address] [place] [address] Mayur Agarwal, PT [address] [place] [address] 01/15/2025 10:30 AM EDT Treatment [facility] [address] [place] [address] Clara Echeverria, THERAPIST ASST 01/18/2025 11:30 AM EDT Treatment [facility] [address] [place] [address] Hill Saunders, THERAPIST ASST 01/22/2025 10:30 AM EDT Treatment [facility] [address] [place] [address] Clara Echeverria, THERAPIST ASST 01/25/2025 11:30 AM EDT Treatment [facility] [address] [place] [address] Hill Saunders, THERAPIST ASST 01/29/2025 11:00 AM EDT Treatment [facility] [address] [place] [address] Mayur Agarwal, PT [address] [place] [address] 02/01/2025 11:30 AM EDT Treatment [facility] [address] [place] [address] Clara Echeverria, THERAPIST ASST documented as of this encounter Visit Diagnoses Not on filedocumented in this encounter Additional Health Concerns Assessment Noted Time PHQ-9 Depression Total Score: 12 024 2:11 PM EST documented as of this encounter Care Teams City Library Director Relationship Specialty Start Date End Date Cynthia Hernandez MD [address] [facility] [place] [address] PCP - Aet 08/09/20 Cynthia Hernandez MD [address] [facility] [place] [place], [place] [id number] PCP - General Family Medicine 01/18/24 Libby Ward NP [address] [facility] [place] [address] Nurse Practitioner Family Medicine 02/05/23 documented as of this encounter
--- OUTSIDE RECORDS SUMMARY | 2025-01-07 09:28 | XMS_ITS | Encounter Summary ---
Author Organization [facility] Address [address] [facility] [place] [address] Care Team Providers Care Upsetter Name Role Phone Cynthia Hernandez MD Unavailable [phone] Libby Ward NP Unavailable [phone] Cynthia Hernandez MD Primary Care Provider [phone] Encounter Details Date Type Department Care Team (Late st Contact Info) Description 01/05/2025 Results Follow-Up [facility] [address] [place] [address] Cynthia Hernandez MD [address] [place] [address] Social History Tobacco Use Types [...] [address] [place] [address] Clara Echeverria, ARMATURE INSPECTOR 01/11/2025 10:30 AM EDT Treatment [facility] [address] [place] [address] Mayur Agarwal, PT [address] [place] [address] 01/15/2025 10:30 AM EDT Treatment [facility] [address] [place] [address] Clara Echeverria, ARMATURE INSPECTOR 01/18/2025 11:30 AM EDT Treatment [facility] [address] [place] [address] Hill Saunders, ARMATURE INSPECTOR 01/22/2025 10:30 AM EDT Treatment [facility] [address] [place] [address] Clara Echeverria, ARMATURE INSPECTOR 01/25/2025 11:30 AM EDT Treatment [facility] [address] [place] [address] Hill Saunders, ARMATURE INSPECTOR 01/29/2025 11:00 AM EDT Treatment [facility] [address] [place] [address] Mayur Agarwal, PT [address] [place] [address] 02/01/2025 11:30 AM EDT Treatment [facility] [address] [place] [address] Clara Echeverria PTA documented as of this encounter Visit Diagnoses Not on filedocumented in this encounter Additional Health Concerns Assessment Noted Time PHQ-9 Depression Total Score: 0 12/30/19 25 9:00 AM EDT documented as of this encounter Care Teams Upsetter Relationship Specialty Start Date End Date Cynthia Hernandez MD [address] [facility] [place] [address] PCP - Aet 08/09/20 Cynthia Hernandez MD [address] [facility] [place] [address] PCP - General Family Medicine 01/18/24 Libby Ward NP [address] [facility] [place] [address] Nurse Practitioner Family Medicine 02/05/23 documented as of this encounter
--- OUTSIDE RECORDS SUMMARY | 2025-01-07 09:28 | XMS_ITS | Encounter Summary ---
Author Organization [facility] Address [address] [place] [address] Care Team Providers Care Leather Scraper Name Role Phone Cynthia Hernandez MD Unavailable [phone] Libby Ward NP Unavailable [phone] Cynthia Hernandez MD Primary Care Provider [phone] Encounter Details Date Type Department Care Team (Latest Contact Info) Description 2024 Travel Social History Tobacco Use Types Packs/Day [...] on file documented as of this encounter Functional Status * Over the past 2 weeks, how often have you been bothered by any of the following problems? Question Answer Date of Assessment Author Maeve interest or pleasure in doing things Not at all 2024 9:00 AM EDT Lyn Calhoun MA Feeling down, depressed, or hopeless Not at all 2024 9:00 AM SASHAT Lyn Calhoun MA Patient Health Questionnaire -2 Score 0 2024 9:00 AM EDT Lyn Calhoun MA * Question Answer Date of Assessment Author Trouble falling or staying asleep, or sleeping too much Not at all 2024 9:00 AM EDT Lyn Calhoun MA Feeling tired or having nilesh le energy Not at all 2024 9:00 AM EDT Lyn Calhoun MA Poor appetite or overeating Not at all 2024 9: 00 AM SASHAT Lyn Calhoun MA Feeling bad about yourself - or that you are a failure or have let yourself or your family down Not at all 2024 9:00 AM EDT Lyn Calhoun MA Trouble concentrating on things, such as reading the newspaper or watching television Not at all 2024 9:00 AM SASHAT Lyn Calhoun MA Moving or speaking so slowly that other people could have noticed? Or the opposite - being so fidgety or restless that you have been moving around a lot more than usual. Not at all 2024 9:00 AM SASHAT Lyn Gill MA Thoughts that you would be better off or hurting yourself in some way Not at all 2024 9:00 AM EDT Lyn Calhoun MA Patient Health Questionnaire -9 Score 0 2024 9:00 AM SASHAT Lyn Calhoun MA documented as of this encounter Plan of Treatment Upcoming Encounters Date Type Department Care Team (Late st Contact Info) Description 01/08/2025 1:30 PM EDT Treatment [facility] [address] [place] [address] Clara Echeverria, ARTIST RELATIONSHIP MANAGER 01/11/2025 10:30 AM EDT Treatment [facility] [address] [place] [address] Mayur Agarwal, PT [address] [place] [address] 01/15/2025 10:30 AM EDT Treatment [facility] [address] [place] [address] Clara Echeverria, ARTIST RELATIONSHIP MANAGER 01/18/2025 11:30 AM EDT Treatment [facility] [address] [place] [address] Hill Saunders, ARTIST RELATIONSHIP MANAGER 01/22/2025 10:30 AM EDT Treatment [facility] [address] [place] [address] Clara Echeverria, ARTIST RELATIONSHIP MANAGER 01/25/2025 11:30 AM EDT Treatment [facility] [address] [place] [address] Hill Saunders, ARTIST RELATIONSHIP MANAGER 01/29/2025 11:00 AM EDT Treatment [facility] [address] [facility] [address] [place] [address] Mayur Agarwal, PT [address] [place] [address] 02/01/2025 11:30 AM EDT Treatment [facility] [address] [facility] [address] [place] [address] Clara Echeverria, ARTIST RELATIONSHIP MANAGER documented as of this encounter Visit Diagnoses Not on filedocumented in this encounter Additional Health Concerns Assessment Noted Time PHQ-9 Depression Total Score: 0 12/30/19 25 9:00 AM EDT documented as of this encounter Care Teams Leather Scraper Relationship Specialty Start Date End Date Cynthia Hernandez MD [address] [place] [address] PCP - [employer] 08/09/20 Cynthia Hernandez MD [address] [facility] [address] [place], [place] [address] PCP - General Family Medicine 01/18/24 Libby Ward NP [address] [facility] [place] [place] [address] Nurse Practitioner Family Medicine 02/05/23 documented as of this encounter
--- OUTSIDE RECORDS SUMMARY | 2025-01-07 09:29 | XMS_ITS | Clinical Summary ---
Author Organization [facility] Address [address] [place] [address] Care Team Providers Care Billing Checker Name Role Phone Cynthia Hernandez MD Unavailable [phone] Libby Ward NP Unavailable [phone] Cynthia Hernandez MD Primary Care Provider [phone] Allergies Active Allergy Reactions Criticality Noted Date Comments Octacosanol 05/31/2023 Medications acetaminophen (Tylenol 8 Hour) 650 MG ER tablet Take 650 mg by mouth every 8 (eight) hours if needed for mild pain. Do not crush, chew, or split. Active cetirizine (ZyrTEC) 10 MG tablet Take by mouth. Active calcitriol (Rocaltrol) 0.25 MCG capsule Take 0.25 mcg by mouth Daily Active cholecalciferol (Vitamin D-3) 25 MCG (1000 UT) capsule Take 1,000 Units by mouth Daily Active escitalopram (Lexapro) 5 MG tabletIndications :Mild depression (CMS/HCC) Take 1 tablet (5 mg) by mouth Daily 30 tablet 11 01/04/20 24 Active diazePAM (Valium) 5 MG tablet TAKE 1 TABLET BY MOUTH PRIOR TO PROCEDURE 04/03/20 24 Active Meclizine HCl 25 MG chewable tablet CHEW AND SWALLOW 1 (ONE) TABLET BY MOUTH DAILY NEEDED 09/11/19 25 Active guaiFENesin (Mucinex) 600 MG 12 hr tabletIndications :Viral URI with cough Take 2 tablets (1,200 mg) by mouth in the morning and 2 tablets (1,200 mg) before bedtime. Do not crush, chew, or split.. 120 tablet 09/26/19 25 Active lisinopril 5 MG tabletIndications :Essential hypertension (CMS/HCC) TAKE 1 TABLET BY MOUTH DAILY 90 tablet 1 12/13/19 25 Active omeprazole (PriLOSEC) [address] capsuleIndication s:Gastroesophagea l reflux disease without esophagitis Take 1 capsule (40 mg) by mouth Daily 90 capsule 1 12/16/19 25 Active atorvastatin (Lipitor) 10 MG tabletIndications :Mixed hyperlipidemia (CMS/HCC) Take 1 tablet (10 mg) by mouth Daily 100 tablet 1 12/16/19 25 2024 Active metoprolol succinate XL (Toprol-XL) 25 MG 24 hr tabletIndications :Essential hypertension (CMS/HCC) Take 1 tablet (25 mg) by mouth in the morning. 90 tablet 1 12/16/19 25 Active levothyroxine (Synthroid, Levoxyl) 75 MCG tabletIndications :Acquired hypothyroidism (CMS/HCC) Take 1 tablet (75 mcg) by mouth in the morning. Take before meals. 90 tablet 1 12/16/19 25 Active atorvastatin (Lipitor) 10 MG tabletIndications :Mixed hyperlipidemia (CMS/HCC) TAKE 1 TABLET BY MOUTH DAILY at the same time each day 100 tablet 1 09/04/19 25 2024 Discontinued(R eorder) omeprazole (PriLOSEC) [address] capsuleIndication s:Gastroesophagea l reflux disease without esophagitis TAKE 1 CAPSULE BY MOUTH IN THE MORNING 90 capsule 1 09/04/19 25 2024 Discontinued(R eorder) levothyroxine (Synthroid, Levoxyl) 75 MCG tabletIndications :Acquired hypothyroidism (CMS/HCC) TAKE 1 TABLET BY MOUTH IN THE MORNING ON AN EMPTY STOMACH 90 tablet 1 12/02/19 25 2024 Discontinued(R eorder) metoprolol succinate XL (Toprol-XL) 25 MG 24 hr tabletIndications :Essential hypertension (CMS/HCC) TAKE 1 TABLET BY MOUTH IN THE MORNING 90 tablet 1 12/08/19 25 2024 Discontinued(R eorder) lisinopril 5 MG tabletIndications :Essential hypertension (CMS/HCC) TAKE 1 TABLET BY MOUTH DAILY 30 tablet 1 12/08/19 25 2024 Discontinued valACYclovir (Valtrex) 1 g tabletIndications :Herpes simplex Take 1 tablet (1,000 mg) by mouth in the morning and 1 tablet (1,000 mg) in the evening and 1 tablet (1,000 mg) before bedtime. Do all this for 7 days. 21 tablet 12/30/19 25 2024 Active Problems Problem Noted Date Diagnosed Date Dizziness 03/14/2024 Sensorineural hearing loss (SNHL), bilateral 01/2024 Fall 11/16/2023 Vertigo 11/16/2023 Assessment & Plan (11/25/2023 10:22 AM EDT): Will get her vestibular therapy terry although her description of weakness and wobbling is different and unlikely to be related to the vertigo that she has had off and on. Decreased platelet count 01/01/2023 Assessment & Plan (11/25/2023 10:21 AM EDT): Has been low for several years, but stable. Lumbar and sacral arthritis 01/01/2023 Nocturnal leg cramps 01/01/2023 Vitamin D deficiency 12/02/2018 RLS (restless legs syndrome) 12/01/2018 Gastro-esophageal reflux disease without esophag itis 11/24/2017 Essential hypertension 10/15/2016 Assessment & Plan (2024 1:10 PM EDT): Well controlled on medications. Assessment & Plan (11/25/2023 10:23 AM EDT): Well controlled on medications. Mixed hyperlipidemia 10/15/2016 Assessment & Plan (2024 1:10 PM EDT): Continue lipitor. Assessment & Plan (11/25/2023 10:22 AM EDT): Stable on lipitor. Stress at home 09/18/2016 Hypothyroidism, unspecified 05/11/2016 Assessment & Plan (2024 1:10 PM EDT): Controlled on synthroid. Resolved Problems Problem Noted Date Diagnosed Date Resolved Date Closed fracture of neck of femur 11/16/2023 2024 Assessment & Plan (11/25/2023 10:23 AM EDT): Continue PHYSICAL THERAPY. Scapular dyskinesis 12/07/2019 08/03/20 Cramp in lower leg associated with rest 12/01/2018 08/03/2023 B12 deficiency 01/08/2014 01/01/2023 Encounters Date Type Department Care Team Description 01/05/2025 Results Follow-Up [facility] [address] [facility] [place] [id number] Cynthia Hernandez MD 01/04/2025 12:00 PM EDT Treatment [facility] [address] [place] [address] Clara Echeverria, VESSEL SCRAPPER Lumbar paraspinal muscle spasm (Primary Dx); Weakness of both lower extremities 01/04/2025 Bamboo flowsheet [facility] [address] [place] [address] Clara Echeverria, VESSEL SCRAPPER 01/04/2025 Travel 01/02/2025 11:30 AM EDT Treatment [facility] [address] [place] [address] Mayur Agarwal T, PT Lumbar paraspinal muscle spasm (Primary Dx); Weakness of both lower extremities; Frequent falls 01/02/2025 Bamboo flowsheet [facility] [address] [place] [address] Mayur Agarwal, PT 01/02/2025 Travel 2024 10:00 AM EDT Office Visit [facility] [address] [facility] [place] [id number] Cynthia Hernandez MD Peripheral polyneuropathy (Primary Dx); Wellness examination; Herpes simplex; Essential hypertension (CMS/HCC); Mixed hyperlipidemia (CMS/HCC); Acquired hypothyroidism (CMS/HCC); Spinal stenosis of lumbar region, unspecified whether neurogenic claudication present 2024 Travel 12/28/2024 11:30 AM EDT Treatment [facility] [address] [facility] [address] [place] [address] Kelbley, Clara, VESSEL SCRAPPER Lumbar paraspinal muscle spasm (Primary Dx); Weakness of both lower extremities 12/28/2024 Bamboo flowsheet [facility] [address] [facility] [address] [place] [address] Kelbley, Clara, VESSEL SCRAPPER 12/28/2024 Travel 12/26/2024 10:00 AM EDT Treatment [facility] [address] [facility] [address] [place] [address] Kelbley, Clara, VESSEL SCRAPPER Lumbar paraspinal muscle spasm (Primary Dx); Weakness of both lower extremities; Frequent falls 12/26/2024 Bamboo flowsheet [facility] [address] [facility] [address] [place] [address] Kelbley, Clara, VESSEL SCRAPPER 12/26/2024 Travel 12/21/2024 11:30 AM EDT Treatment [facility] [address] [facility] [address] [place] [address] Kelbley, Clara, VESSEL SCRAPPER Lumbar paraspinal muscle spasm (Primary Dx); Weakness of both lower extremities; Frequent falls 12/21/2024 Bamboo flowsheet [facility] [address] [facility] [address] [place] [address] Kelbley, Clara, VESSEL SCRAPPER 12/21/2024 Travel 12/15/2024 Refill [facility] [address] [place] [address] Nikki Coughlin MA Gastroesophageal reflux disease without esophagitis; Mixed hyperlipidemia (CMS/HCC); Essential hypertension (CMS/HCC); Acquired hypothyroidism (CMS/HCC) 12/14/2024 11:00 AM EDT Treatment [facility] [address] [facility] [address] [place] [address] Clara Echeverria, VESSEL SCRAPPER Lumbar paraspinal muscle spasm (Primary Dx); Weakness of both lower extremities; Frequent falls 12/14/2024 Bamboo flowsheet [facility] [address] [place] [address] Clara Echeverria, VESSEL SCRAPPER 12/14/2024 Travel 12/11/2024 12:00 PM EDT Treatment [facility] [address] [place] [address] Clara Echeverria, VESSEL SCRAPPER Lumbar paraspinal muscle spasm (Primary Dx); Weakness of both lower extremities; Frequent falls 12/11/2024 [address]ill [facility] [address] [place] [address] Cynthia Hernandez MD Essential hypertension ([facility]) 12/11/2024 Bamboo flowsheet [facility] [address] [facility] [address] [place] [address] Clara Echeverria, VESSEL SCRAPPER 12/11/2024 Travel 12/10/2024 Telephone [facility] [address] [place] [phone] [employer] 12/07/2024 2:00 PM EDT Evaluation [facility] [address] [facility] [address] [place] [address] Mayur Agarwal, PT Lumbar paraspinal muscle spasm (Primary Dx); Weakness of both lower extremities; Frequent falls 12/07/2024 Plan of Care Documentation [facility] [address] [facility] [address] [place] [address] 12/07/2024 Refill [facility] [address] [place] [address] Cynthia Hernandez MD Essential hypertension ([facility]) 12/07/2024 Bamboo flowsheet [facility] [address] [facility] [address] [place] [address] Mayur Agarwal, PT 12/07/2024 Travel 12/01/2024 Refill [facility] [address] [facility] [place] [address] Cynthia Hernandez MD Acquired hypothyroidism (CMS/HCC) 11/30/2024 Abstract [facility] [address] [facility] [place] [address] Cynthia Hernandez MD 10/23/2024 Telephone [facility] [place] [id number] [facility] [address] Sindy Lucero MA 10/09/2024 Telephone [facility] [address] [facility] [place] [address] Parisa Garcia MA from Last 3 Months Immunizations Immunization Administration Dates Next Due Influenza, High Dose Seasonal, Preservative Free 05/11/2023,06/21/2020 Influenza, High-dose Seasona l, Quadrivalent, Preservative Free 06/23/2022,05/09/2021 Pneumococcal Conjugate PCV 20 07/08/2023 Family History Medical History Relation Name Comments Heart disease Father Stroke Father Heart disease Mother Stroke Mother Stroke Other Relation Name Status Comments Father (Age 50) Mother (Age 73) Other 05/20 of her fa ther's siblings of cva Social History Tobacco Use Types Packs/Day Years Used Date Smoking Tobacco: Never Smokeless Tobacco: Never Tobacco Cessation:Counseling Given: Not Answered Alcohol Use Standard Drinks/Week Comments Not Currently [...] PM EDT Sexual Orientation Not on file Last Filed Vital Signs Vital Sign Reading Time Taken Comments Blood Pressure 128/76 2024 9:56 AM EDT Pulse 72 2024 9:56 AM EDT Temperature 36.9 C (98.5 F) 09/26/2024 11:01 AM EST Respiratory Rate 18 2024 9:56 AM EDT Oxygen Saturation 97% 2024 9:56 AM EDT Inhaled Oxygen Concentration - - Weight 65.3 kg (144 lb) 2024 9:56 AM EDT Height 160 cm (5' 3 ) 2024 9:56 AM EDT Body Mass Index 25.51 2024 9:56 AM EDT Plan of Treatment Upcoming Encounters Date Type Department Care Team (Late st Contact Info) Description 01/08/2025 1:30 PM EDT Treatment [facility] [address] [facility] [address] [place] [address] Clara Echeverria, VESSEL SCRAPPER 01/11/2025 10:30 AM EDT Treatment [facility] [address] [facility] [address] [place] [address] Mayur Agarwal, PT [address] [place] [address] 01/15/2025 10:30 AM EDT Treatment [facility] [address] [facility] [address] [place] [address] Clara Echeverria, VESSEL SCRAPPER 01/18/2025 11:30 AM EDT Treatment [facility] [address] [place] [address] Hill Saunders, VESSEL SCRAPPER 01/22/2025 10:30 AM EDT Treatment [facility] [address] [place] [address] Clara Echeverria, VESSEL SCRAPPER 01/25/2025 11:30 AM EDT Treatment [facility] [address] [place] [address] Hill Saunders, VESSEL SCRAPPER 01/29/2025 11:00 AM EDT Treatment [facility] [address] [facility] [address] [place] [address] Mayur Agarwal, PT [address] [facility] [address] [place] [address] 02/01/2025 11:30 AM EDT Treatment [facility] [address] [facility] [address] [place] [address] Clara Echeverria, VESSEL SCRAPPER Health Maintenance Due Date Last Done Comments Influenza Vaccine (Season Ended) 2025 05/11/2023, 06/23/2022, 05/09/2021, Additional history exists Medicare Annual Wellness (AWV) 2025 0 2024, 08/03/2023, 08/03/2023 Pneumococcal Vaccine: 65+ Years Completed 3 Procedures Procedure Name Priority Date/Time Associated Diagnosis Comments ANTINUCLEAR ANTIBODIES TITER AND PATTERN Routine 2024 10:41 AM EDT HEPATITIS PANEL, ACUTE Routine 2024 10:41 AM EDT Peripheral polyneuropathy METHYLMALONIC ACID, SERUM Routine 2024 10:41 AM EDT Peripheral polyneuropathy SED RATE BY MODIFIED WESTERGREN Routine 2024 10:41 AM EDT Peripheral polyneuropathy JOANIE SCREEN W/REFLEX Routine 2024 1 0:41 AM EDT Peripheral polyneuropathy TSH W/REFLEX TO FT4 Routine 2024 1 0:41 AM EDT Peripheral polyneuropathy PROTEIN ELECTROPHORESIS, SERUM Routine 2024 10:41 AM EDT Peripheral polyneuropathy VITAMIN B12 Routine 2024 10:41 AM EDT Peripheral polyneuropathy from Last 3 Months Results * (ABNORMAL) ANTINUCLEAR ANTIBODIES TITER AND [...] AC-1: Homogeneous International Consensus on JOANIE Patterns (https://doi.org/10.1515/cozm-5048-6445) 2024 10:4 1 AM EDT 2024 10:43 AM EDT Narrative [facility] - 01/04/2025 10:03 AM EDT MULTIPLE TESTING PRIORITIES; ROUTINE TESTING TO FOLLOW. Resulting Agency Comment Performing Organization Information Site ID: QPT Name: [facility] Address: [address] [place] [address], [address] [place] [phone] Director: Juan Alberto Harrell MD us Cynthia Hernandez MD LAB BLOOD ORDERABLES Final Re sult [facility] * TSH W/REFLEX TO FT4 (2024 10:41 AM EDT) TSH W/REFLEX TO FT4 1.61 0.40 - 4.50 mIU/L [facility] 2024 10:4 1 AM EDT 2024 10:43 AM EDT Narrative [facility] - 01/04/2025 10:03 AM EDT MULTIPLE TESTING PRIORITIES; ROUTINE TESTING TO FOLLOW. Resulting Agency Comment Performing Organization Information Site ID: QPT Name: [facility] Address: [address] [place] [address], [address] [place] [phone] Director: Juan Alberto Harrell MD us Cynthia Hernandez MD LAB BLOOD ORDERABLES Final Re sult Performing Organization Address [facility]/ZIP Co de Phone Number [facility] * Methylmalonic acid, serum (2024 10:41 [...] neural tube defects and intrauterine growth restriction. [facility] utilized Multi-Modal Decomposition (MMD) analysis to establish first and second trimester-specific MMA reference intervals in , as given below: MMA, First trimester (<13 wks gestation): 58-167 nmol/L MMA, Second trimester (13-23 wks gestation): 63-241 nmol/L Note 1 This test was developed and its analytical performance characteristics have been determined by [facility]. It has not been cleared or approved [...] Performing Organization Information Site ID: QPT Name: [facility] Address: [address] [place] [address], [address] [place] [phone] Director: Juan Alberto Harrell MD Cynthia Hernandez MD LAB BLOOD ORDERABLES Final Re sult Performing Organization Address [facility]/ZIP Co de Phone Number [facility] * Hepatitis panel, acute (2024 10:41 AM EDT) HEPATITIS A IGM NON-REACTI VE NON-REACT [facility] Comment: For additional information, please refer to http://Selfie.com.Abazab/faq/EFX336 (This link is being provided for informational/ educational purposes only.) HEPATITIS B SURFACE ANTIGEN NON-REACTI VE NON-REACT ASAEL [facility] Comment: For additional information, please refer to http://Dabble/faq/SIU210 (This link is being provided for informational/ educational purposes only.) HEPATITIS B CORE ANTIBODY (IGM) NON-REACTI VE NON-REACT ASAEL [facility] Comment: For additional information, please refer to http://Dabble/faq/GML801 (This link is being provided for informational/ educational purposes only.) HEPATITIS C ANTIBODY NON-REACTI VE NON-REACT ASAEL [facility] Comment: HCV antibody was non-reactive. There is no laboratory evidence of HCV infection. In most cases, no further action is required. However, if recent HCV exposure is suspected, a test for HCV RNA (test code 76300) is suggested. For additional information please refer to http://Dabble/faq/MKT72u0 (This link is being provided for informational/ educational purposes only.) Blood Venous blood specimen / Unknown 2024 10:41 AM EDT 2024 10:43 AM EDT Narrative [facility] - 01/04/2025 10:03 AM EDT MULTIPLE TESTING PRIORITIES; ROUTINE TESTING TO FOLLOW. Resulting Agency Comment Performing Organization Information Site ID: QPT Name: [facility] Address: [address] [place] [address], [address] [place] [phone] Director: Juan Alberto Harrell MD us Cynthia Hernandez MD LAB BLOOD ORDERABLES Final Re sult [facility] * Sedimentation rate, automated (2024 10:41 AM EDT) SED RATE BY MODIFIED ASHLEY 9 < OR = 30 mm/h [facility] Blood Venous blood specimen / Unknown 2024 10:41 AM EDT 2024 10:43 AM EDT Narrative [facility] - 01/04/2025 10:03 AM EDT MULTIPLE TESTING PRIORITIES; ROUTINE TESTING TO FOLLOW. Resulting Agency Comment Performing Organization Information Site ID: QPT Name: [facility] Address: [address] [place] [address], [address] [place] [phone] Director: Juan Alberto Harrell MD Cynthia Hernandez MD LAB BLOOD ORDERABLES Final Re sult Performing Organization Address [facility] de Phone Number [facility] * (ABNORMAL) [...] indicated. For additional information, please refer to http://education.FrontalRain Technologies/faq/PZM490 (This link is being provided for informational/ educational purposes only.) Blood Venous blood specimen / Unknown 2024 10:41 AM EDT 2024 10:43 AM EDT Narrative [facility] - 01/04/2025 10:03 AM EDT MULTIPLE TESTING PRIORITIES; ROUTINE TESTING TO FOLLOW. Resulting Agency Comment Performing Organization Information Site ID: QPT Name: [facility] Address: [address] [place] [address], [address] [place] [phone] Director: Juan Alberto Harrell MD us Cynthia Hernandez MD LAB BLOOD ORDERABLES Final Re sult Performing Organization Address [facility] Co de Phone Number [facility] * (ABNORMAL) [...] Performing Organization Information Site ID: QPT Name: [facility] Address: [address] [place] [address], [address] [place] [phone] Director: Juan Alberto Harrell MD Cynthia Hernandez MD LAB BLOOD ORDERABLES Final Re sult [facility] * Vitamin B12 (2024 10:41 AM EDT) [facility] VITAMIN B12 217 200 - 1,100 pg/mL [...] Performing Organization Information Site ID: QPT Name: [facility] Address: [address] [place] [address], [address] [place] [address] Director: Juan Alberto Harrell MD Cynthia Hernandez MD LAB BLOOD ORDERABLES Final Re sult [facility] from Last 3 Months Insurance [employer] MED[employer]AGE Care Teams Billing Checker Relationship Specialty Start Date End Date Cynthia eHrnandez MD [address] [place] [address] PCP - [employer] 08/09/20 Cynthia Hernandez MD [address] [place] [id number] PCP - General Family Medicine 01/18/24 Libby Ward NP [address] [place] [address] Nurse Practitioner Family Medicine 02/05/23
--- OUTSIDE RECORDS SUMMARY | 2025-01-07 09:29 | XMS_ITS | Encounter Summary ---
Author Organization [facility] Address [address] [place] [address] Care Team Providers Care Patient Scheduling Coordinator Name Role Phone Cynthia Hernandez MD Unavailable Libby Ward NP Unavailable [phone] Cynthia Hernandez MD Primary Care Provider [phone] Encounter Details Date Type Department Care Team (Late st Contact Info) Description 11/30/2024 Abstract [facility] [address] [place] [address] Cynthia Hernandez MD [address] [place] [address] Social History Tobacco Use Types [...] [address] [place] [address] Clara Echeverria, KAIAKO KOHANGA REO 01/11/2025 10:30 AM EDT Treatment [facility] [address] [place] [address] Mayur Agarwal, PT [address] [place] [address] 01/15/2025 10:30 AM EDT Treatment [facility] [address] [place] [address] Clara Echeverria, KAIAKO KOHANGA REO 01/18/2025 11:30 AM EDT Treatment [facility] [address] [place] [address] Hill Saunders, KAIAKO KOHANGA REO 01/22/2025 10:30 AM EDT Treatment [facility] [address] [place] [address] Clara Echeverria, KAIAKO KOHANGA REO 01/25/2025 11:30 AM EDT Treatment [facility] [address] [place] [address] Hill Saunders, KAIAKO KOHANGA REO 01/29/2025 11:00 AM EDT Treatment [facility] [address] [place] [address] Mayur Agarwal, PT [address] [place] [address] 02/01/2025 11:30 AM EDT Treatment [facility] [address] [place] [address] Clara Echeverria PTA documented as of this encounter Visit Diagnoses Not on filedocumented in this encounter Additional Health Concerns Assessment Noted Time PHQ-9 Depression Total Score: 12 024 2:11 PM EST documented as of this encounter Care Teams Patient Scheduling Coordinator Relationship Specialty Start Date End Date Cynthia Hernandez MD [address] [place] [address] PCP - [employer] 08/09/20 Cynthia Hernandez MD [address] [place] [place], [place] [phone] PCP - General Family Medicine 01/18/24 Libby Ward NP [address] [place] [address] Nurse Practitioner Family Medicine 02/05/23 documented as of this encounter
--- OUTSIDE RECORDS SUMMARY | 2025-01-07 09:29 | XMS_ITS | Encounter Summary ---
Author Organization [facility] Address [address] [place] [address] Care Team Providers Care Color Print Inspector Name Role Phone Cynthia Hernandez MD Unavailable Cynthia Hernandez MD Primary Care Provider Libby Ward NP Unavailable [phone] Mariam Glasgow MD Primary Care Provider Cynthia Hernandez MD Primary Care Provider Encounter Details Date Type Department Care Team (Late st Contact Info) Description 03/09/2023 Abstract [facility] [address] [place] [address] Shital Briscoe WORKFORCE DEVELOPMENT ASSISTANT [address] [place] [address] Social History Tobacco Use Types Packs/Day Years Used Date Smoking Tobacco: Never Smokeless Tobacco: Never Alcohol Use Standard Drinks/Week Comments Never 0 (1 standard drink = 0.6 oz pure alcohol) 1 glass of wine past year. Coffee 1-2 cups/day Comments Unknown Sex and Gender Information Value [...] [address] [place] [address] Clara Echeverria, SCRAPER BURRER 01/11/2025 10:30 AM EDT Treatment [facility] [address] [place] [address] Mayur Agarwal, PT [address] [place] [address] 01/15/2025 10:30 AM EDT Treatment [facility] [address] [place] [address] Clara Echeverria, SCRAPER BURRER 01/18/2025 11:30 AM EDT Treatment [facility] [address] [place] [address] Hill Saunders, SCRAPER BURRER 01/22/2025 10:30 AM EDT Treatment [facility] [address] [place] [address] Clara Echeverria, SCRAPER BURRER 01/25/2025 11:30 AM EDT Treatment [facility] [address] [place] [address] Hill Saunders, SCRAPER BURRER 01/29/2025 11:00 AM EDT Treatment [facility] [address] [place] [address] Mayur Agarwal, PT [address] [place] [address] 02/01/2025 11:30 AM EDT Treatment [facility] [address] [place] [address] Clara Echeverria, SCRAPER BURRER documented as of this encounter Visit Diagnoses Not on filedocumented in this encounter Care Teams Color Print Inspector Relationship Specialty Start Date End Date Cynthia Hernandez MD [address] [place] [address] PCP - [employer]et[employer] 08/09/20 Cynthia Hernandez MD [address] [place] [address] PCP - General Family Medicine 02/05/23 12/28/23 Mariam Glasgow MD [address] [place] [address] PCP - General Geriatric Medicine 12/29/23 01/17/24 Cynthia Hernandez MD [address] [place] [address] PCP - General Family Medicine 01/18/24 Libby Ward NP [address] [place], [place] [id number] Nurse Practitioner Family Medicine 02/05/23 documented as of this encounter
--- OUTSIDE RECORDS SUMMARY | 2025-01-07 09:29 | XMS_ITS | Encounter Summary ---
Author Organization [facility] Address [address] [facility] [place] [address] Care Team Providers Care Spot Checker Name Role Phone Cynthia Hernandez MD Unavailable Cynthia Hernandez MD Primary Care Provider Libby Ward NP Unavailable [phone] Mariam Glasgow MD Primary Care Provider Cynthia Hernandez MD Primary Care Provider [phone] Encounter Details Date Type Department Care Team (Late st Contact Info) Description 01/01/2023 Orders Only [facility] [address] [place] [address] Shital Briscoe BANQUET SERVER ON CALL [address] [place], [place] [address] Social History Tobacco Use Types Packs/Day Years Used Date Smoking Tobacco: Never Assessed Comments Unknown Sex and Gender Information Value [...] CI PT [address] [place] [address] Clara Echeverria, SOUP MIXER 01/11/2025 10:30 AM EDT Treatment [facility] [address] [place] [address] Mayur Agarwal, PT [address] [place] [address] 01/15/2025 10:30 AM EDT Treatment [facility] [address] [place] [address] Jacki Clara, SOUP MIXER 01/18/2025 11:30 AM EDT Treatment [facility] [address] [place] [address] Hill Saunders, SOUP MIXER 01/22/2025 10:30 AM EDT Treatment [facility] [address] [place] [address] Clara Echeverria, SOUP MIXER 01/25/2025 11:30 AM EDT Treatment [facility] [address] [place] [address] Hill Saunders, SOUP MIXER 01/29/2025 11:00 AM EDT Treatment [facility] [address] [place] [address] Mayur Agarwal, PT [address] [place] [address] 02/01/2025 11:30 AM EDT Treatment [facility] [address] [place] [address] Clara Echeverria, SOUP MIXER documented as of this encounter Visit Diagnoses Not on filedocumented in this encounter Care Teams Spot Checker Relationship Specialty Start Date End Date Cynthia Hernandez MD [address] [place] [address] PCP - [employer]et[employer] 08/09/20 Cynthia Hernandez MD [address] [place] [address] PCP - General Family Medicine 02/05/23 12/28/23 Mariam Glasgow MD [address] [place] [address] PCP - General Geriatric Medicine 12/29/23 01/17/24 Cynthia Hernandez MD [address] [place], [place] [id number] PCP - General Family Medicine 01/18/24 Libby Ward NP [address] [facility] [address] [place], [place] [id number] Nurse Practitioner Family Medicine 02/05/23 documented as of this encounter
--- OUTSIDE RECORDS SUMMARY | 2025-01-07 09:29 | XMS_ITS | Encounter Summary ---
Author Organization [facility] Address [address] [place] [address] Care Team Providers Care Health And Wellness Advisor Name Role Phone Cynthia Hernandez MD Unavailable [phone] Libby Ward NP Unavailable [phone] Cynthia Hernandez MD Primary Care Provider [phone] Reason for Visit * Reason Comments Med Refill Encounter Details Date Type Department Care Team (Late st Contact Info) Description 06/12/2024 Refill [facility] [address] [place] [address] Cynthia Hernandez MD [address] [place] [address] Dizziness Social History Tobacco Use Types Packs/Day Years [...] Date Recorded Patient Health Questionnaire-2 Score 0 03/10/2024 Comments Unknown Sex and Gender Information Value Date Recorded Sex Assigned at Not on file Legal Sex Female 7:18 PM EDT Gender Identity Female 10/21/2022 7:18 PM EDT Sexual Orientation Not on file documented as of this encounter Miscellaneous Notes * Telephone Encounter - Cynthia Hernandez MD - 06/13/2024 7:19 AM EST Approving, but needs appt for additional refills. documented in this encounter Plan of Treatment Upcoming Encounters Date Type Department Care Team (Late st Contact Info) Description 01/08/2025 1:30 PM EDT Treatment [facility] [address] [place] [address] Clara Echeverria, COMMERCIAL ILLUSTRATOR 01/11/2025 10:30 AM EDT Treatment [facility] [address] [place] [address] Mayur Agarwal, PT [address] [place] [address] 01/15/2025 10:30 AM EDT Treatment [facility] [address] [place] [address] Clara Echeverria, COMMERCIAL ILLUSTRATOR 01/18/2025 11:30 AM EDT Treatment [facility] [address] [place] [address] Hill Saunders, COMMERCIAL ILLUSTRATOR 01/22/2025 10:30 AM EDT Treatment [facility] [address] [place] [address] Clara Echeverria, COMMERCIAL ILLUSTRATOR 01/25/2025 11:30 AM EDT Treatment [facility] [address] [place] [address] Hill Saunders, COMMERCIAL ILLUSTRATOR 01/29/2025 11:00 AM EDT Treatment [facility] [address] [place] [address] Any Mayur T, PT [address] [facility] [address] [place] [address] 02/01/2025 11:30 AM EDT Treatment [facility] [address] [facility] [address] [place] [address] Clara Echeverria PTA documented as of this encounter Visit Diagnoses Diagnosis Dizziness Dizziness and giddiness documented in this encounter Additional Health Concerns Assessment Noted Time PHQ-9 Depression Total Score: 12 024 2:11 PM EST documented as of this encounter Care Teams Health And Wellness Advisor Relationship Specialty Start Date End Date Cynthia Hernandez MD [address] [place] [address] PCP - Aet[employer] 08/09/20 Cynthia Hernandez MD [address] [place] [address] PCP - General Family Medicine 01/18/24 Libby Ward NP [address] [place] [address] Nurse Practitioner Family Medicine 02/05/23 documented as of this encounter
--- OUTSIDE RECORDS SUMMARY | 2025-01-07 09:29 | XMS_ITS | Encounter Summary ---
Author Organization [facility] Address [address] [place] [address] Care Team Providers Care Spike Driver Name Role Phone Cynthia Hernandez MD Unavailable [phone] Libby Ward NP Unavailable [phone] Cynthia Hernandez MD Primary Care Provider [phone] Encounter Details Date Type Department Care Team (Latest Contact Info) Description 01/02/2025 Travel Social History Tobacco Use Types Packs/Day [...] [address] [place] [address] Clara Echeverria, DEPOSITING MACHINE OPERATOR 01/11/2025 10:30 AM EDT Treatment [facility] [address] [place] [address] Mayur Agarwal, PT [address] [place] [address] 01/15/2025 10:30 AM EDT Treatment [facility] [address] [place] [address] Clara Echeverria, DEPOSITING MACHINE OPERATOR 01/18/2025 11:30 AM EDT Treatment [facility] [address] [place] [address] Hill Saunders, DEPOSITING MACHINE OPERATOR 01/22/2025 10:30 AM EDT Treatment [facility] [address] [place] [address] Clara Echeverria, DEPOSITING MACHINE OPERATOR 01/25/2025 11:30 AM EDT Treatment [facility] [address] [place] [address] Hill Saunders, DEPOSITING MACHINE OPERATOR 01/29/2025 11:00 AM EDT Treatment [facility] [address] [place] [address] Mayur Agarwal, PT [address] [place] [address] 02/01/2025 11:30 AM EDT Treatment [facility] [address] [place] [address] Clara Echeverria, DEPOSITING MACHINE OPERATOR documented as of this encounter Visit Diagnoses Not on filedocumented in this encounter Additional Health Concerns Assessment Noted Time PHQ-9 Depression Total Score: 0 12/30/19 25 9:00 AM EDT documented as of this encounter Care Teams Spike Driver Relationship Specialty Start Date End Date David, Cynthia, MD [address] [facility] [place] [address] PCP - Aet 08/09/20 Cynthia Hernandez MD [address] [facility] [place], [place] [address] PCP - General Family Medicine 01/18/24 Libby Ward NP [address] [facility] [place] [address] Nurse Practitioner Family Medicine 02/05/23 documented as of this encounter
--- OUTSIDE RECORDS SUMMARY | 2025-01-07 09:29 | XMS_ITS | Encounter Summary ---
Author Organization [facility] Address [address] [place] [address] Care Team Providers Care Sheather Name Role Phone Cynthia Hernandez MD Unavailable [phone] Cynthia Hernandez MD Primary Care Provider [phone] Libby Ward NP Unavailable [phone] Mariam Glasgow MD Primary Care Provider Cynthia Hernandez MD Primary Care Provider Encounter Details Date Type Department Care Team (Late st Contact Info) Description 10/20/2023 Abstract [facility] [address] [place] [address] Bk Brown MD [address] [facility] [address] [place], [place] [address] Social History Tobacco Use Types Packs/Day Years [...] [address] [place] [address] Clara Echeverria, LICSW 01/11/2025 10:30 AM EDT Treatment [facility] [address] [place] [address] Mayur Agarwal, PT [address] [place] [address] 01/15/2025 10:30 AM EDT Treatment [facility] [address] [place] [address] Clara Echeverria, LICSW 01/18/2025 11:30 AM EDT Treatment [facility] [address] [place] [address] Hill Saunders, LICSW 01/22/2025 10:30 AM EDT Treatment [facility] [address] [place] [address] Clara Echeverria, LICSW 01/25/2025 11:30 AM EDT Treatment [facility] [address] [place] [address] Hill Saunders, LICSW 01/29/2025 11:00 AM EDT Treatment [facility] [address] [place] [address] Mayur Agarwal, PT [address] [place] [address] 02/01/2025 11:30 AM EDT Treatment [facility] [address] [place] [address] Clara Echeverria PTA documented as of this encounter Visit Diagnoses Not on filedocumented in this encounter Additional Health Concerns Assessment Noted Time PHQ-9 Depression Total Score: 12 024 2:11 PM EST documented as of this encounter Care Teams Sheather Relationship Specialty Start Date End Date Cynthia Hernandez MD [address] [place] [address] PCP - Aetna 08/09/20 Cynthia Hernandez MD [address] [place] [address] PCP - General Family Medicine 02/05/23 12/28/23 Mariam Glasgow MD [address] [place] [address] PCP - General Geriatric Medicine 12/29/23 01/17/24 Cynthia Hernandez MD [address] [place] [address] PCP - General Family Medicine 01/18/24 Libby Ward NP [address] [place] [address] Nurse Practitioner Family Medicine 02/05/23 documented as of this encounter
--- OUTSIDE RECORDS SUMMARY | 2025-01-07 09:29 | XMS_ITS | Encounter Summary ---
Author Organization [facility] Address [address] [facility] [place] [address] Care Team Providers Care Lining Inserter Name Role Phone Cynthia Hernandez MD Unavailable [phone] Cynthia Hernandez MD Primary Care Provider [phone] Libby Ward NP Unavailable [phone] Mariam Glasgow MD Primary Care Provider Cynthia Hernandez MD Primary Care Provider [phone] Encounter Details Date Type Department Care Team (Late st Contact Info) Description 03/01/2023 Abstract [facility] [address] [place] [address] Sarah Gomes NP Social History Tobacco Use Types Packs/Day Years Used Date Smoking Tobacco: Never Smokeless Tobacco: Never Tobacco Cessation:Counseling Given: Not Answered Alcohol Use Standard Drinks/Week Comments Never 0 [...] [facility] [address] [facility] [address] [place] [address] Clara Echeverria, MUCKING MACHINE OPERATOR 01/11/2025 10:30 AM EDT Treatment [facility] [address] [place] [address] Mayur Agarwal, PT [address] [facility] [address] [place] [address] 01/15/2025 10:30 AM EDT Treatment [facility] [address] [place] [address] Clara Echeverria, MUCKING MACHINE OPERATOR 01/18/2025 11:30 AM EDT Treatment [facility] PT [address] [facility] [address] [place] [address] Hill Saunders, MUCKING MACHINE OPERATOR 01/22/2025 10:30 AM EDT Treatment [facility] PT [address] [facility] [address] [place] [address] Clara Echeverria, MUCKING MACHINE OPERATOR 01/25/2025 11:30 AM EDT Treatment [facility] PT [address] [facility] [address] [place] [address] Hill Saunders, MUCKING MACHINE OPERATOR 01/29/2025 11:00 AM EDT Treatment [facility] [address] [facility] [address] [place] [address] Mayur Agarwal, PT [address] [facility] [address] [place] [address] 02/01/2025 11:30 AM EDT Treatment [facility] [address] [facility] [address] [place] [address] Clara Echeverria, MUCKING MACHINE OPERATOR documented as of this encounter Visit Diagnoses Not on filedocumented in this encounter Care Teams Lining Inserter Relationship Specialty Start Date End Date Cynthia Hernandez MD [address] [place], [place] [address] PCP - Aetna 08/09/20 Cynthia Hernandez MD [address] [place] [address] PCP - General Family Medicine 02/05/23 12/28/23 Mariam Glasgow MD [address] [place] [address] PCP - General Geriatric Medicine 12/29/23 01/17/24 Cynthia Hernandez MD [address] [place], [place] [address] PCP - General Family Medicine 01/18/24 Libby Ward NP [address] [facility] [place] [address] Nurse Practitioner Family Medicine 02/05/23 documented as of this encounter
--- OUTSIDE RECORDS SUMMARY | 2025-01-07 09:29 | XMS_ITS | Encounter Summary ---
Author Organization [facility] Address [address] [place] [address] Care Team Providers Care Commercial Parts Professional Name Role Phone Cynthia Hernandez MD Unavailable [phone] Cynthia Hernandez MD Primary Care Provider Libby Ward NP Unavailable [phone] Mariam Glasgow MD Primary Care Provider Cynthia Hernandez MD Primary Care Provider Encounter Details Date Type Department Care Team (Late st Contact Info) Description 11/10/2023 Abstract [facility] [address] [place] [address] Shital Briscoe MEDICAL LIAISON [address] [place] [address] Social History Tobacco Use Types [...] [address] [place] [address] Clara Echeverria, RN FIELD 01/11/2025 10:30 AM EDT Treatment [facility] [address] [place] [address] Mayur Agarwal, PT [address] [place] [address] 01/15/2025 10:30 AM EDT Treatment [facility] [address] [place] [address] Clara Echeverria, RN FIELD 01/18/2025 11:30 AM EDT Treatment [facility] [address] [place] [address] Hill Saunders, RN FIELD 01/22/2025 10:30 AM EDT Treatment [facility] [address] [place] [address] Clara Echeverria, RN FIELD 01/25/2025 11:30 AM EDT Treatment [facility] [address] [place] [address] Hill Saunders, RN FIELD 01/29/2025 11:00 AM EDT Treatment [facility] [address] [place] [address] Mayur Agarwal, PT [address] [place] [address] 02/01/2025 11:30 AM EDT Treatment [facility] [address] [place] [address] Clara Echeverria PTA documented as of this encounter Visit Diagnoses Not on filedocumented in this encounter Additional Health Concerns Assessment Noted Time PHQ-9 Depression Total Score: 12 024 2:11 PM EST documented as of this encounter Care Teams Commercial Parts Professional Relationship Specialty Start Date End Date Cynthia Hernandez MD [address] [place] [address] PCP - Aetna 08/09/20 Cynthia Hernandez MD [address] [place] [address] PCP - General Family Medicine 02/05/23 12/28/23 Mariam Glasgow MD [address] [place] [address] PCP - General Geriatric Medicine 12/29/23 01/17/24 Cynthia Hernandez MD [address] [place] [address] PCP - General Family Medicine 01/18/24 Libby Ward NP [address] [place] [address] Nurse Practitioner Family Medicine 02/05/23 documented as of this encounter
--- OUTSIDE RECORDS SUMMARY | 2025-01-07 09:29 | XMS_ITS | Encounter Summary ---
Author Organization [facility] Address [address] [place] [address] Care Team Providers Care Heating Systems Installer Name Role Phone Cynthia Hernandez MD Unavailable [phone] Libby Ward NP Unavailable [phone] Mariam Glasgow MD Primary Care Provider Cynthia Hernandez MD Primary Care Provider [phone] Encounter Details Date Type Department Care Team (Late st Contact Info) Description 01/06/2024 Orders Only [facility] [address] [place] [address] Mariam Glasgow MD [address] [place] [address] Social History Tobacco Use Types Packs/Day Years [...] [address] [place] [address] Clara Echeverria, HORSE RACE TIMER 01/11/2025 10:30 AM EDT Treatment [facility] [address] [place] [address] Mayur Agarwal, PT [address] [place] [address] 01/15/2025 10:30 AM EDT Treatment [facility] [address] [place] [address] Clara Echeverria, HORSE RACE TIMER 01/18/2025 11:30 AM EDT Treatment [facility] [address] [place] [address] Hill Saunders, HORSE RACE TIMER 01/22/2025 10:30 AM EDT Treatment [facility] [address] [place] [address] Clara Echeverria, HORSE RACE TIMER 01/25/2025 11:30 AM EDT Treatment [facility] [address] [place] [address] Hill Saunders, HORSE RACE TIMER 01/29/2025 11:00 AM EDT Treatment [facility] [address] [place] [address] Mayur Agarwal, PT [address] [place] [address] 02/01/2025 11:30 AM EDT Treatment [facility] [address] [place] [address] Clara Echeverria PTA documented as of this encounter Procedures Procedure Name Priority Date/Time Associated Diagnosis Comments CBC (INCLUDES DIFF/PLT) Routine 01/06/2024 7:36 AM EDT documented in this encounter Results * CBC and differential (01/06/2024 7:36 AM EDT) Blood Venous blood specimen / Unknown Mariam Glasgow MD LAB BLOOD ORDERABLES Final R esult documented in this encounter Visit Diagnoses Not on filedocumented in this encounter Additional Health Concerns Assessment Noted Time PHQ-9 Depression Total Score: 12 024 2:11 PM EST documented as of this encounter Care Teams Heating Systems Installer Relationship Specialty Start Date End Date Cynthia Hernandez MD [address] [place] [address] PCP - Aetna 08/09/20 Mariam Glasgow MD [address] [place] [address] PCP - General Geriatric Medicine 12/29/23 01/17/24 Cynthia Hernandez MD [address] [facility] [place] [address] PCP - General Family Medicine 01/18/24 Libby Ward NP [address] [facility] [place] [address] Nurse Practitioner Family Medicine 02/05/23 documented as of this encounter
--- OUTSIDE RECORDS SUMMARY | 2025-01-07 09:29 | XMS_ITS | Encounter Summary ---
Author Organization [facility] Address [address] [facility] [place] [address] Care Team Providers Care Rivet Tapping Machine Operator Name Role Phone Cynthia Hernandez MD Unavailable Cynthia Hernandez MD Primary Care Provider [phone] Libby Ward NP Unavailable [phone] Mariam Glasgow MD Primary Care Provider Cynthia Hernandez MD Primary Care Provider Encounter Details Date Type Department Care Team (Late st Contact Info) Description 10/13/2023 Abstract [facility] [address] [place] [address] Cynthia Hernandez MD [address] [place] [address] Social History Tobacco Use Types [...] [address] [place] [address] Clara Echeverria, DOPSTER 01/11/2025 10:30 AM EDT Treatment [facility] [address] [place] [address] Mayur Agarwal, PT [address] [place] [address] 01/15/2025 10:30 AM EDT Treatment [facility] [address] [place] [address] Clara Echeverria, DOPSTER 01/18/2025 11:30 AM EDT Treatment [facility] [address] [place] [address] Hill Saunders, DOPSTER 01/22/2025 10:30 AM EDT Treatment [facility] [address] [place] [address] Clara Echeverria, DOPSTER 01/25/2025 11:30 AM EDT Treatment [facility] [address] [place] [address] Hill Saunders, DOPSTER 01/29/2025 11:00 AM EDT Treatment [facility] [address] [place] [address] Mayur Agarwal, PT [address] [place] [address] 02/01/2025 11:30 AM EDT Treatment [facility] [address] [place] [address] Clara Echeverria PTA documented as of this encounter Visit Diagnoses Not on filedocumented in this encounter Additional Health Concerns Assessment Noted Time PHQ-9 Depression Total Score: 12 024 2:11 PM EST documented as of this encounter Care Teams Rivet Tapping Machine Operator Relationship Specialty Start Date End Date Cynthia Hernandez MD [address] [place] [address] PCP - Aetna 08/09/20 Cynthia Hernandez MD [address] [place] [address] PCP - General Family Medicine 02/05/23 12/28/23 Mariam Glasgow MD [address] [place] [address] PCP - General Geriatric Medicine 12/29/23 01/17/24 Cynthia Hernandez MD [address] [place] [address] PCP - General Family Medicine 01/18/24 Libby Ward NP [address] [place] [address] Nurse Practitioner Family Medicine 02/05/23 documented as of this encounter
--- OUTSIDE RECORDS SUMMARY | 2025-01-07 09:29 | XMS_ITS | Patient Health Record ---
Author Organization [facility] Address [address] [place] [address] Support Name Relationship Address Phone Yvonne Liz Guarantor Unknown [phone] Reason For Referral No Information Problems Problem Type SNOMED Code ICD Code Onset Dates Problem Status W/U Status Risk Notes Problem Vertigo (696705626) Vertigo (R42) Active confirmed Problem Closed fracture of neck of femur (367762534) Closed fracture of neck of right femur, initial encounter (S72.001A) Active confirmed Problem Fall () Fall, initial encounter (W19.XXXA) Active confirmed Plan Of Treatment No Information Insurance Providers Payer Name Payer Address Payer Phone Subscriber Number Group Number Insured Name Patient Relationship to Insured Coverage Start Date Coverage End Date Medicare Aetna [address] [place] [phone] [id number] Yvonne Liz Self - patient is the insured
--- OUTSIDE RECORDS SUMMARY | 2025-01-07 09:29 | XMS_ITS | Encounter Summary ---
Author Organization [facility] Address [address] [place] [address] Care Team Providers Care Receiver Dispatcher Name Role Phone Cynthia Leong MD Unavailable [phone] Cynthia Leong MD Primary Care Provider [phone] Libby Ward NP Unavailable [phone] Mariam Glasgow MD Primary Care Provider [phone] Cynthia Leong MD Primary Care Provider [phone] Encounter Details Date Type Department Care Team (Late st Contact Info) Description 10/26/2023 Clinisync Result Encounter [facility] External Department Unsolicited Provider, Generic External Data Social History Tobacco Use Types Packs/Day Years [...] [address] [place] [address] Clara Echeverria, COMMANDER INTERNAL AFFAIRS 01/11/2025 10:30 AM EDT Treatment [facility] [address] [place] [address] Mayur Agarwal, PT [address] [place] [address] 01/15/2025 10:30 AM EDT Treatment [facility] [address] [place] [address] Clara Echeverria, COMMANDER INTERNAL AFFAIRS 01/18/2025 11:30 AM EDT Treatment [facility] [address] [place] [address] Hill Saunders, COMMANDER INTERNAL AFFAIRS 01/22/2025 10:30 AM EDT Treatment [facility] [address] [place] [address] Clara Echeverria, COMMANDER INTERNAL AFFAIRS 01/25/2025 11:30 AM EDT Treatment [facility] [address] [place] [address] Hill Saunders, COMMANDER INTERNAL AFFAIRS 01/29/2025 11:00 AM EDT Treatment [facility] [address] [place] [address] Mayur Agarwal, PT [address] [place] [address] 02/01/2025 11:30 AM EDT Treatment [facility] [address] [place] [address] Clara Echeverria, COMMANDER INTERNAL AFFAIRS documented as of this encounter Procedures Procedure Name Priority Date/Time Associated Diagnosis Comments XR HIP 2 OR 3 VW RIGHT 10/26/2023 8:18 AM EDT documented in this encounter Results * XR hip right 2 or 3 views (10/26/2023 8:18 AM EDT) Anatomical Region Laterality Modality Lower Extremities, Hip Right Radiograp hic Imaging 10/26/2023 8:18 AM EDT Narrative 10/26/2023 8:21 [place] [address] XRay Report Signed Patient: YVONNE LIZ MR#: [id number] : 1945 Acct:[id number] Age/Sex: 77 / F ADM Date: 10/25/23 Loc: EC Attending Dr: Charles Garrido M.D. Ordering Physician: Charles Garrido M.D. Date of Service: 10/25/23 Procedure(s): XR hip RT 2V w/ pelvis Accession Number(s): [id number] cc: Charles Garrido M.D.; CYNTHIA LEONG [address] [address] Patient Name: YVONNE LIZ MRN: [id number] date: 1945 Sex: F Assigned Patient Location: Current Patient Location: Accession/Order Number: [id number] Exam Date: 10/25/2023 11:11 Report Date: 10/26/2023 08:18 At the request of: CHARLES GARRIDO Procedure: XR hip RT 2V w/ pelvis PROCEDURE: XR hip RT 2V w/ pelvis COMPARISON: 10/07/2023 HISTORY: RIGHT HIP PAIN, PELVIS PAIN FINDINGS: BONES:Right total hip arthroplasty. No acute fracture, dislocation or mechanical failure. SOFT TISSUES:Lateral thigh surgical ysabel. Vascular calcifications EFFUSION:None visible. OTHER: Negative. XR/XR hip RT 2V w/ pelvis IMPRESSION: No acute fracture or mechanical failure Electronically authenticated by: IVAN ESTEBAN Date: 10/26/2023 08:18 Dictated By: Ivan Esteban M.D. Signed By: 10/26/23820 DD/ 7 TD/TT: Bridge Welder: Procedure Note Radiology, Radiologist, - 10/26/2023 [facility] [place] [facility] [id number] XRay Report Signed Patient: RODRIGUEZ LIZR#: [id number] : 1945cct:[id number] Age/Sex: 77 / FADM Date: 10/25/23 Loc: EC Attending Dr: Charles Garrido M.D. Ordering Physician: Charles Garrido M.D. Date of Service: 10/25/23 Procedure(s): XR hip RT 2V w/ pelvis Accession Number(s): [id number] cc: Charles Garrido M.D.; CYNTHIA LEONG [facility] [place] [id number] Patient Name: YVONNE LIZ MRN: [id number] date: 1945 Sex: F Assigned Patient Location: Current Patient Location: Accession/Order Number: [id number] Exam Date: 10/25/2023 11:11 Report Date: 10/26/2023 08:18 At the request of: CHARLES GARRIDO Procedure: XR hip RT 2V w/ pelvis PROCEDURE: XR hip RT 2V w/ pelvis COMPARISON: 10/07/2023 HISTORY: RIGHT HIP PAIN, PELVIS PAIN FINDINGS: BONES:Right total hip arthroplasty. No acute fracture, dislocation or mechanical failure. SOFT TISSUES:Lateral thigh surgical ysabel. Vascular calcifications EFFUSION:None visible. OTHER: Negative. XR/XR hip RT 2V w/ pelvis IMPRESSION: No acute fracture or mechanical failure Electronically authenticated by: IVAN ESTEBAN Date: 10/26/2023 08:18 Dictated By: Ivan Esteban M.D. Signed By:10/26/23820 DD/ 7 TD/TT: Bridge Welder: us Generic External Data Provider IMG XR PROCEDURES Final Result documented in this encounter Visit Diagnoses Not on filedocumented in this encounter Additional Health Concerns Assessment Noted Time PHQ-9 Depression Total Score: 12 024 2:11 PM EST documented as of this encounter Care Teams Receiver Dispatcher Relationship Specialty Start Date End Date Cynthia Leong MD [address] [place] [place] [address] PCP - [employer] 08/09/20 Cynthia Leong MD [address] [place] [address] PCP - General Family Medicine 02/05/23 12/28/23 Mariam Glasgow MD [address] [place] [address] PCP - General Geriatric Medicine 12/29/23 01/17/24 Cynthia Leong MD [address] [place] [address] PCP - General Family Medicine 01/18/24 Libby Ward NP [address] [facility] [place] [address] Nurse Practitioner Family Medicine 02/05/23 documented as of this encounter
--- OUTSIDE RECORDS SUMMARY | 2025-01-07 09:29 | XMS_ITS | Encounter Summary ---
Author Organization [facility] Address [address] [place] [address] Care Team Providers Care Central Supply Supervisor Name Role Phone Cynthia Hernandez MD Unavailable [phone] Libby Ward NP Unavailable [phone] Cynthia Hernandez MD Primary Care Provider [phone] Encounter Details Date Type Department Care Team (Late st Contact Info) Description 04/03/2024 Abstract [facility] [address] [place] [address] Cynthia Hernandez MD [address] [place] [address] Social History Tobacco Use Types [...] [address] [place] [address] Clara Echeverria, FUEL CELL ENGINEER 01/11/2025 10:30 AM EDT Treatment [facility] [address] [place] [address] Mayur Agarwal, PT [address] [place] [address] 01/15/2025 10:30 AM EDT Treatment [facility] [address] [place] [address] Clara Echeverria, FUEL CELL ENGINEER 01/18/2025 11:30 AM EDT Treatment [facility] [address] [place] [address] Hill Saunders, FUEL CELL ENGINEER 01/22/2025 10:30 AM EDT Treatment [facility] [address] [place] [address] Clara Echeverria, FUEL CELL ENGINEER 01/25/2025 11:30 AM EDT Treatment [facility] [address] [place] [address] Hill Saunders, FUEL CELL ENGINEER 01/29/2025 11:00 AM EDT Treatment [facility] [address] [place] [address] Mayur Agarwal, PT [address] [place] [address] 02/01/2025 11:30 AM EDT Treatment [facility] [address] [place] [address] Clara Echeverria PTA documented as of this encounter Visit Diagnoses Not on filedocumented in this encounter Additional Health Concerns Assessment Noted Time PHQ-9 Depression Total Score: 12 024 2:11 PM EST documented as of this encounter Care Teams Central Supply Supervisor Relationship Specialty Start Date End Date Cynthia Hernandez MD [address] [place] [address] PCP - [employer] 08/09/20 Cynthia Hernandez MD [address] [place] [address] PCP - General Family Medicine 01/18/24 Libby Ward NP [address] [place] [address] Nurse Practitioner Family Medicine 02/05/23 documented as of this encounter
--- OUTSIDE RECORDS SUMMARY | 2025-01-07 09:29 | XMS_ITS | Encounter Summary ---
Author Organization [facility] Address [address] [place] [address] Care Team Providers Care Solar Energy Systems Designer Name Role Phone Cynthia Hernandez MD Unavailable [phone] Libby Ward NP Unavailable [phone] Cynthia Hernandez MD Primary Care Provider [phone] Encounter Details Date Type Department Care Team (Late st Contact Info) Description 01/02/2025 Bamboo flowsheet [facility] [address] [place] [address] Mayur Agarwal, PT [address] [place] [address] Social History Tobacco Use Types Packs/Day Years [...] [address] [place] [address] Clara Echeverria, CNA LTC 01/11/2025 10:30 AM EDT Treatment [facility] [address] [place] [address] Mayur Agarwal, PT [address] [place] [address] 01/15/2025 10:30 AM EDT Treatment [facility] [address] [place] [address] Clara Echeverria, CNA LTC 01/18/2025 11:30 AM EDT Treatment [facility] [address] [place] [address] Hill Saunders, CNA LTC 01/22/2025 10:30 AM EDT Treatment [facility] [address] [place] [address] Clara Echeverria, CNA LTC 01/25/2025 11:30 AM EDT Treatment [facility] [address] [place] [address] Hill Saunders, CNA LTC 01/29/2025 11:00 AM EDT Treatment [facility] [address] [place] [address] Mayur Agarwal, PT [address] [place] [address] 02/01/2025 11:30 AM EDT Treatment [facility] [address] [place] [address] Clara Echeverria PTA documented as of this encounter Visit Diagnoses Not on filedocumented in this encounter Additional Health Concerns Assessment Noted Time PHQ-9 Depression Total Score: 0 12/30/19 25 9:00 AM EDT documented as of this encounter Care Teams Solar Energy Systems Designer Relationship Specialty Start Date End Date Cynthia Hernandez MD [address] [place] [address] PCP - [employer] 08/09/20 Cynthia Hernandez MD [address] [place] [address] PCP - General Family Medicine 01/18/24 Libby Ward NP [address] [facility] [place] [address] Nurse Practitioner Family Medicine 02/05/23 documented as of this encounter
--- OUTSIDE RECORDS SUMMARY | 2025-01-07 09:29 | XMS_ITS | Clinical Summary ---
Author Organization [facility] Address [address] [place] [address] Care Team Providers Care Textile Engineer Name Role Phone Cynthia Hernandez Primary Care Provider [phone] Allergies No known active allergies Medications OMEPRAZOLE (PRILOSEC ORAL) Take 1 tablet by mouth once daily. Active lisinopril 20 mg tablet Take 20 mg by mouth once daily. Active metoprolol succinate XL, long acting, 25 mg 24 hr tablet Take 25 mg by mouth once daily. Active diphenhydrAMINE (BENADRYL) 25 mg capsule Take 25 mg by mouth every 6 hours as needed. Active levothyroxine 25 mcg tablet Take 25 mcg by mouth daily before breakfast. Active Active Problems Problem Noted Date Diagnosed Date B12 deficiency 01/08/2014 Social History Tobacco Use Types Packs/Day Years Used Date Smoking Tobacco: Never Smokeless Tobacco: Never Alcohol Use Standard Drinks/Week Comments Yes 0 (1 standard drink = 0.6 oz pur e alcohol) Comments Unknown Sex and Gender Information Value Date Recorded Sex Assigned at Not on file Legal Sex Female 2:36 PM EDT Gender Identity Not on file Sexual Orientation Not on file Last Filed Vital Signs Vital Sign Reading Time Taken Comments Blood Pressure 179/107 01/08/2014 9:26 AM EDT Pulse 86 01/08/2014 9:26 AM EDT Temperature 36.7 C (98 F) 01/08/2014 9:26 AM EDT Respiratory Rate - - Oxygen Saturation - - Inhaled Oxygen Concentration - - Weight 74.8 kg (165 lb) 01/08/2014 9:26 AM EDT Height 162.6 cm (5' 4 ) 01/08/2014 9:26 AM EDT Body Mass Index 28.32 01/08/2014 9:26 AM EDT Plan of Treatment Health Maintenance Due Date Last Done Comments Anxiety Screening 12/28/1961 Depression Screening 12/28/1961 DTaP,Tdap,Td Vaccine (1 - Tdap) 12/28/1962 Pneumococcal Vaccine: 50+ (1 of 1 - PCV) 12/28/1993 Shingrix Vaccine (1 of 2) 12/28/1993 Bone Density Screening 12/28/2008 Diabetes Screening 12/18/2016 12/18/2013 RSV Vaccine (1 - 1-dose 75+ series) 12/28/2018 Covid-19 Vaccine (1 - 2023- season) 2024 Advance Directive Discussion 08/09/2024 Influenza Vaccine (Season Ended) 2025 Procedures Procedure Name Priority Date/Time Associated Diagnosis Comments COMPREHENSIVE METABOLIC PANEL Routine 12/18/2013 10:08 AM EDT Pancytopenia (HCC) from Last 3 Months or Most Recently Relevant to Health Maintenance Results * (ABNORMAL) COMP METABOLIC PANEL (12/18/2013 10:08 AM EDT) Protein, Total 6.9 6.0 - 8.4 g/dL [facility] Albumin 3.9 3.5 - 5.0 g/dL [facility] Calcium 9.4 8.5 - 10.5 mg/dL [facility] Bilirubin, Total 0.3 0.0 - 1.5 mg/dL [facility] Alkaline Phosphatase 79 40 - 150 U/L [facility] AST 28 7 - 40 U/L [facility] Glucose 125(H) 65 - 100 mg/dL [facility] BUN 17 8 - 25 mg/dL [facility] Creatinine 0.92 0.70 - 1.40 mg/dL [facility] Sodium 142 132 - 148 mmol/L [facility] Potassium 3.7 3.5 - 5.0 mmol/L [facility] Chloride 106 98 - 110 mmol/L [facility] CO2 24 23 - 32 mmol/L [facility] Anion Gap 12 0 - 15 mmol/L [facility] ALT 23 0 - 45 U/L [facility] eGFR- >60 [facility] eGFR-All Other Races >60 . [facility] Comment: eGFR (Estimated GFR) Units of measure: mL/min/1.73 meters squared eGFR is derived from the reexpressed MDRD Study equation using the following parameters: serum creatinine, age, gender and race. The creatinine assay has been calibrated to be traceable to IDMS. An eGFR <60 mL/min/1.73m2 for >3 months is consistent with chronic kidney disease. Refer to KDOQI guidelines for clinical interpretation. Blood specimen (specimen) BLOOD SPECIMEN / Unknown 12/18/2013 10:08 AM EDT 12/18/2013 10:13 AM EDT [facility] Final Result [facility] [address] [place] [address] from Last 3 Months or Most Recently Relevant to Health Maintenance Insurance [employer] MEDICARE Care Teams Textile Engineer Relationship Specialty Start Date End Date Cynthia Hernandez [address] [place] [id number] PCP - General Family Medicine 12/15/13
--- OUTSIDE RECORDS SUMMARY | 2025-01-07 09:30 | XMS_ITS | CCD ---
Author Organization [facility] Care Team Providers Care Stone Paver Name Role Phone Ap Holland Unavailable SANJEEV Briscoe-Natalie Isaacs Primary Care Provider MD Ap Holland Attending Provider [phone] Charles Hendricks Admitting Unavailable Charles Hendricks Attending Unavailable Roslyn Briscoe Primary Care Unavailable Ap Holland Admitting Unavailable Ap Holland Attending Unavailable Roslyn Briscoe Primary Care Unavailable Cynthia Leong MD Unavailable Ed PACE, Libby Unavailable Cynthia Leong MD Primary Care Provider Gialpeshitis , Andrius Tay Attending Unavailable Giedraitis , Andrius Tay Attending Unavailable Giedraitis , Andrius Tay Attending Unavailable Giedraitis , Andrius Tay Attending Unavailable Giedraitis , Andrius Tay Attending Unavailable ROSLYN BRISCOE A Attending Unavailab le CYNTHIA LEONG Attending Unavailable SHIVA AGARWAL Attending Unavailable GIEDRAITIS, ANDRIUS Referring Unavailable KELBLEY, CLARA Attending Unavailable GIEDRAITIS, ANDRIUS Referring Unavailable KELBLEY, CLARA Attending Unavailable GIEDRAITIS, ANDRIUS Referring Unavailable KELBLEY, CLARA Attending Unavailable GIEDRAITIS, ANDRIUS Referring Unavailable CYNTHIA LEONG Attending Unavailable KELBLEY, CLARA Attending Unavailable GIEDRAITIS, ANDRIUS Referring Unavailable KELBLEY, CLARA Attending Unavailable GIEDRAITIS, ANDRIUS Referring Unavailable CYNTHIA LEONG Attending Unavailable SHIVA AGARWAL Attending Unavailable GIEDRAITIS, ANDRIUS Referring Unavailable CLARA ECHEVERRIA Attending Unavailable GIEDRAITIS, ANDRIUS Referring Unavailable BLANK, DIVINA A Attending Unavailable CLARK, QIAN L Referring Unavailable LOPEZ, ALANA Attending Unavailable SALO, CYNTHIA Referring Unavailable TIMMISNONI H Attending Unavailable CLARK, QIAN L Referring Unavailable LOPEZ, ALANA Attending Unavailable SALO, CYNTHIA Referring Unavailable CASTELLANO, DIVINA L Attending Unavailable [...] Attending Unavailable CASTELLANO, DIVINA L Referring Unavailable SALO, CYNTHIA Attending Unavailable LOPEZ, ALANA Attending Unavailable CASTELLANO, [...] Facility (7 sources) Pollen Drug allergy Unknown [employer] Other (1 source) Pollen Drug allergy (disorder) 3 [facility] Repository (20 sources) Octacosanol Propensity to adverse reactions 3 [facility] Medications Current Medications Medication Drug Class(es) [...] (1 source) Penicillin-class Antibacterial Start: 06-07-2024 End: 06-07-2024 take 4 tablets by mouth once, then take 1 tablet by mouth every hour amoxicillin (Amoxil) 500 MG tablet Indications: Need for antibiotic prophylaxis for dental procedure Take 4 tablets (2,000 mg) by mouth 1 time for 1 dose Take 1 hour prior to procedure 4 tablet 06/07/2024 06/07/2024 Active atorvastatin 10 mg oral tablet (20 sources) HMG-CoA Reductase Inhibitor Start: 03-21-2024 End: 03-25-2025 take 1 tablet by mouth once daily atorvastatin (Lipitor) 10 MG tablet Indications: Mixed hyperlipidemia (CMS/HCC) Take 1 tablet (10 mg) by mouth Daily 100 tablet 1 12/15/2024 03/25/2025 Active take 1 tablet by celi th every twenty-four hours Atorvastatin Calcium 10 MG 1 tablet Oral ly Once a day Active calcitriol 0.26800 mg oral capsule (20 sources) Vitamin D3 [...] BY MOUTH PRIOR TO PROCEDURE 04/03/2024 Active doxycycline hyclate 100 mg oral capsule (2 sources) Tetracycline-class Drug Start: End: doxycycline (Vibramycin) 100 MG capsule Indications: Acute non-recurrent maxillary sinusitis Take 1 capsule (100 mg) by mouth in the morning and 1 capsule (100 mg) before bedtime. Do all this for 10 days. Take with at least 8 ounces (large glass) of water, do not lie down for 30 minutes after. 20 capsule 10/06/2024 10/16/2024 Active escitalopram 5 mg oral tablet (20 sources) Serotonin Reuptake Inhibitor Start: End: take 1 tablet by mouth once daily escitalopram (Lexapro) 5 MG tablet Indications: Mild depression (CMS/HCC) Take 1 tablet (5 mg) by mouth Daily 30 tablet 11 01/04/2024 Active 12 hr guaiFENesin 600 mg extended release oral tablet (20 sources) Start: take 2 tablets by mouth in the morning, then take 2 tablets by mouth every twelve hours at bedtime guaiFENesin (Mucinex) 600 MG 12 hr tablet Indications: Viral URI with cough Take 2 tablets (1,200 mg) by mouth in the morning and 2 tablets (1,200 mg) before bedtime. Do not crush, chew, or split.. 120 tablet 09/26/2024 Active levothyroxine sodium 0.075 mg oral tablet (20 sources) l-Thyroxine Start: End: take 1 tablet by mouth before mealtime levothyroxine (Synthroid, Levoxyl) 75 MCG tablet Indications: Acquired hypothyroidism (CMS/HCC) Take 1 tablet (75 mcg) by mouth in the morning. Take before meals. 90 tablet 1 12/15/2024 Active take 1 tablet by celi th once [...] (20 sources) Angiotensin Converting Enzyme Inhibitor Start: 06-22-20 End: 06-22-20 25 take 1 tablet by mouth once daily lisinopril 5 MG tablet Indications: Essential hypertension (CMS/HCC) TAKE 1 TABLET BY MOUTH DAILY 90 tablet 1 12/12/2024 Active meclizine hydrochloride 25 mg chewable tablet (20 sources) Antiemetic Start: 09-11-19 take 1 tablet by mouth once daily as needed Meclizine HCl 25 MG chewable tablet CHEW AND SWALLOW 1 (ONE) TABLET BY MOUTH DAILY NEEDED 09/11/2024 Active Start: 07-31-2024 End: 08-20-2024 take 1 tablet by mouth every twenty-four [...] oral tablet (20 sources) beta-Adrenergic Abhishek Start: 12-07-2024 End: 12-15-2024 take 1 tablet by mouth every twenty-four hours in the morning metoprolol succinate XL (Toprol-XL) 25 MG 24 hr tablet Indications: Essential hypertension (CMS/HCC) Take 1 tablet (25 mg) by mouth in the morning. 90 tablet 1 12/15/2024 Active Start: 06-13-2024 End: 07-31-2024 take 1 tablet by mouth every twenty-four hours in the morning metoprolol succinate XL (Toprol-XL) 25 MG 24 hr tablet Indications: Essential hypertension (CMS/HCC) Take 1 tablet (25 mg) by mouth in the morning. 90 tablet 1 07/31/2024 Active Start: 01-25-2024 End: 06-13-2024 take 1 tablet by mouth once daily in the morning metoprolol succinate XL (Toprol-XL) 25 MG 24 hr tablet Indications: Essential hypertension (CMS/HCC) take 1 tablet by mouth every morning 90 tablet 01/25/2024 06/13/2024 Discontinued (Reorder) take 1 capsule by [facility] once daily Metoprolol Succinate 50 MG [...] sources) Proton Pump Inhibitor Start: 01-25-2024 End: 12-15-2024 take 1 capsule by mouth once daily omeprazole (PriLOSEC) [address] capsule Indications: Gastroesophageal reflux disease without esophagitis Take 1 capsule (40 mg) by mouth Daily 90 capsule 1 12/15/2024 Active take 1 capsule by mouth once kim ly Omeprazole 40 MG 1 capsule 30 minutes before morning meal Orally Once a day Active valACYclovir 1000 mg oral tablet (4 sources) Herpesvirus Nucleoside Analog DNA Polymerase Inhibitor, Herpes Simplex Virus Nucleoside Analog DNA Polymerase Inhibitor, Herpes Zoster Virus Nucleoside Analog DNA Polymerase Inhibitor Start: 2024 End: 01-05-2025 take 1 tablet by mouth in the morning, then take 1 tablet by mouth in the evening, then take 1 tablet by mouth at bedtime valACYclovir (Valtrex) 1 g tablet Indications: Herpes simplex Take 1 tablet (1,000 mg) by mouth in the morning and 1 tablet (1,000 mg) in the evening and 1 tablet (1,000 mg) before bedtime. Do all this for 7 days. 21 tablet 2024 01/05/2025 Active vitamin b12 1 mg/ml injectable solution (20 sources) Vitamin B12 Start: 11-19-2023 End: 11-18-2024 Cyanocobalamin (B-12 Compliance Injection) 1000 MCG/ML kit Indications: B12 deficiency Inject 1 mL as directed every 30 (thirty) days 1 kit 11 11/19/2023 11/18/2024 Active Completed/Discontinued Medications Medication Drug Class(es) Dates Sig (Normalized) Sig (Original) traMADol hydrochloride 50 mg oral tablet (20 sources) Opioid Agonist Start: 06-15-2024 End: 10-06-2024 take 1 tablet by mouth twice daily as needed traMADol (Ultram) 50 MG tablet Take 50 mg by mouth 2 (two) times a day as needed 06/15/2024 10/06/2024 Discontinued (Therapy completed) Problems Active Problems Problem Classification Problem Date Documented Date Episodic/Chronic Adjustment disorders (20 sources) Family tension; Translations: [Reaction to severe stress, unspecified] Onset: 09-18-2016 01-01-2023 Chronic Chronic kidney disease (2 sources) Chronic kidney disease stage 3A ; Translations: [CKD stage 3a, GFR 45-59 ml/min (CMS/HCC)] 10-06-2024 Chronic Coagulation and hemorrhagic disorders (20 sources) Platelet count below reference range; Translations: [Thrombocytopenia, unspecified] Onset: 01-01-2023 01-01-2023 Chronic Deficiency and other anemia (2 sources) Pancytopenia; Translations: [Other pancytopenia] 10-07-2024 Chronic Deficiency and other anemia (2 sources) [...] leg cramps] Onset: 01-01-2023 01-01-2023 Chronic Other connective tissue disease (7 sources) Other symptoms and signs involving the musculoskeletal system; Translations: [Other musculoskeletal symptoms referable to limbs] 12-07-2024 Episodic Other connective tissue disease (6 sources) Recurrent falls ; Translations: [Repeated falls] 12-07-2024 Episodic Other ear and sense organ disorders (20 sources) Sensorineural hearing loss, bilateral; Translations: [Sensorineural hearing loss, bilateral] Onset: 03-14-2024 03-14-2024 Chronic Other hereditary and degenerative nervous system conditions (20 sources) Restless legs; Translations: [Restless legs syndrome] Onset: 12-01-2018 01-01-2023 Chronic Other lower respiratory disease (2 sources) Cough; Translations: [Acute cough] 09-26-2024 Episodic Other nervous system disorders (7 sources) Chronic pain; Translations: [Other chronic pain] Chronic Other nervous system disorders (4 sources) Other chronic pain Chronic Other non-traumatic joint disorders (1 source) Pain in right hip Episodic Other upper respiratory disease (2 sources) Nasal congestion; Translations: [Nasal congestion] 09-26-2024 Episodic Other upper respiratory infections (4 sources) Viral upper respiratory tract infection; Translations: [Acute upper respiratory infection, unspecified] 09-26-2024 Episodic Pulmonary heart disease (2 sources) Pulmonary hypertension; Translations: [Pulmonary hypertension, unspecified] 10-07-2024 Chronic Spondylosis; intervertebral disc disorders; other back [...] initial encounter for closed fracture] Onset: 11-16-2023 Resolved: 2024 11-16-2023 Episodic Mood disorders (20 sources) Mood disorders Onset: 09-02-2023 Resolved: 2024 09-02-2023 Nutritional deficiencies (20 sources) Cobalamin deficiency; [...] Test Name Value Interpretation Reference Range Facility Laboratory - Microbiology an d Antimicrobial susceptibilityon 09-26-2024 SARS-CoV-2 (COVID-19) RNA RADHA+probe Ql (Unsp spec) Negative [facility] No Panel Informationon 09-26 FLU A Negative [facility] FLU B Negative [facility] Interpretation and review of laboratory results Normal [facility] CBC W Auto Differential pane l (Bld)on 06-23-2024 Basophils (Bld) [#/Vol] 11 10*3/uL [facility] Basophils/100 WBC (Bld) 0.3 % [facility] Eosinophils (Bld) [#/Vol] 68 10*3/uL [facility] Eosinophils/100 WBC (Bld) 1.9 % [facility] Erythrocyte distribution width (RBC) [Ratio] 13 % 11.0 - 15.0 % [facility] Hematocrit (Bld) [Volume fraction] 33.6 % Low 35.0 - 45.0 % [facility] Hemoglobin (Bld) [Mass/Vol] 11.9 g/dL 11.7 - 15.5 g/dL [facility] Lymphocytes (Bld) [#/Vol] 486 10*3/uL Low [facility] Lymphocytes/100 WBC (Bld) 13.5 % [facility] MCH (RBC) [Entitic mass] 36.5 pg High 27.0 - 33.0 pg [facility] MCHC (RBC) [Mass/Vol] 35.4 g/dL 32.0 - 36.0 g/dL [facility] Comment on above: For adults, a slight decrease in the calculated MCHC value (in the range of 30 to 32 g/dL) is most likely not clinically significant; however, it should be interpreted with caution in correlation with other red cell parameters and the patient's clinical condition. MCV (RBC) [Entitic vol] 103.1 fL High 80.0 - 100.0 fL [facility] Monocytes (Bld) [#/Vol] 508 10*3/uL [facility] Monocytes/100 WBC (Bld) 14.1 % [facility] Neutrophils (Bld) [#/Vol] 2527 10*3/uL [facility] Neutrophils/100 WBC (Bld) 70.2 % [facility] Platelet mean volume (Bld) [Entitic vol] 10.5 fL 7.5 - 12.5 fL [facility] Platelets (Bld) [#/Vol] 96 10*3/uL Low [facility] RBC (Bld) [#/Vol] 3.26 10*6/uL Low [facility] WBC (Bld) [#/Vol] 3.6 10*3/uL Low [facility] Laboratory - Chemistry and C hemistry - challengeon 06-23-2024 Albumin [Mass/Vol] 3.6 g/dL 3.6 - 5.1 g/dL [facility] Albumin/Globulin [Mass ratio] 1.6 {ratio} [facility] ALP [Catalytic activity/Vol] 72 U/L 37 - 153 U/L [facility] ALT [Catalytic activity/Vol] 23 U/L 6 - 29 U/L [facility] AST [Catalytic activity/Vol] 20 U/L 10 - 35 U/L [facility] Bilirubin [Mass/Vol] 0.7 mg/dL 0.2 - 1 .2 mg/dL [facility] Calcium [Mass/Vol] 9.2 mg/dL 8.6 - 10. 4 mg/dL [facility] Chloride [Moles/Vol] 103 mmol/L 98 - 11 0 mmol/L [facility] CO2 [Moles/Vol] 29 mmol/L 20 - 32 mmol/L [facility] Cobalamin (Vitamin B12) [Mass/Vol] 222 pg/mL 200 - 1100 pg/mL [facility] Comment on above: Please Note: Although the [...] 0.98 mg/dL High 0.60 - 0.95 mg/dL [facility] GFR/1.73 sq M.predicted among non-blacks MDRD (S/P/Bld) [Vol rate/Area] 58 mL/min/{1.73_m2} Low > OR = 60 mL/min/1.73m2 [facility] Globulin (S) [Mass/Vol] 2.2 g/dL [facility] Glucose [Mass/Vol] 146 mg/dL High 65 - 99 mg/dL [facility] Comment on above: Fasting reference interval For someone without known diabetes, a glucose value >125 mg/dL indicates that they may have diabetes and this should be confirmed with a follow-up test. Potassium [Moles/Vol] 3.6 mmol/L 3.5 - 5.3 mmol/L [facility] Protein [Mass/Vol] 5.8 g/dL Low 6.1 - 8.1 g/dL [facility] Sodium [Moles/Vol] 138 mmol/L 135 - 146 mmol/L [facility] TSH Qn 2.26 m[IU]/L [facility] Urea nitrogen [Mass/Vol] 27 mg/dL High 7 - 25 mg/dL [facility] Urea nitrogen/Creatinine [Mass ratio] 28 mg/mg High [facility] Lipid 1996 panelon 4 Cholesterol [Mass/Vol] 174 mg/dL NINF - 200 mg/dL [facility] Cholesterol in HDL [Mass/Vol] 61 mg/dL > OR = 50 [facility] Cholesterol in LDL [Mass/Vol] 86 mg/dL mg/dL (calc) [facility] Comment on above: Reference range: <10 0 Desirable range <100 mg/dL for primary prevention; <70 mg/dL for patients with CHD or diabetic patients with > or = 2 CHD risk factors. LDL-C is now calculated using the David calculation, which is a validated novel method providing better accuracy than the Friedewald equation in the estimation of LDL-C. Georgi SS et al. CLAUDIA. 2013;310(19): 1980-3122 (http://education.mSpot/faq/ONS201) Cholesterol non HDL [Mass/Vol] 113 mg/dL [facility] Comment on above: For patients with di abetes plus 1 major ASCVD risk factor, treating to a non-HDL-C goal of <100 mg/dL (LDL-C of <70 mg/dL) is considered a therapeutic option. Cholesterol.total/Cho lesterol in HDL [Mass ratio] 2.9 {ratio} [facility] Triglyceride [Mass/Vol] 168 mg/dL High [facility] - 150 mg/dL [facility] No Panel Informationon 06-23 Interpretation and review of laboratory results Abnormal [facility] Performing Organization Information Site ID: QPT Name: [facility] Address: [address] [place] [address], [address] [place] [phone] Director: Juan Alberto Harrell MD [facility] Urinalysis macro (dipstick) panel (U)on 05-18-2024 Bilirubin, UA Negative Negative - 4(70) +++ mg/dL [facility] Blood, UA Negative Negative - 50 Mikal/mcL [facility] Clarity, UA Cloudy [facility] Color, UA Yellow [facility] Glucose, UA Negative Negative - 2000(110) ++++ mg/dL [facility] Ketones, UA Negative Negative - 160(16) ++++ mg/dL [facility] Leukocytes, UA Positive Negative - 500+++ Dustin/mcL [facility] Nitrite, UA Negative Negative - Positive [facility] pH, UA 5.0 5 - 9 [facility] Protein, UA Positive Negative - 2000(20) ++++ mg/dL [facility] Spec Grav, UA 1.005 1 - 1.[address] [facility] Urobilinogen, UA 1.0 0.2 - 12 mg/dL [facility] William 10-08-2023 L Specimen: [id number] Received: 10/11/23 Status: MAURI Ga Num: [id number] Spec Type: Surgical Subm Dr: Charles Hendricks Tissues: A Femoral Head - Fracture (RT HIP) Procedures: HE/2, Gross/Micro L4, Decalcification Age/ Patient Sex Location Account Attending Physician Liz,Yvonne 77/F LABELL [id number] Charles Hendricks SPEC NUM: [id number] RECD: 10/11/23 STATUS: MAURI REQ NUM: [id number] JAVI: 10/08/[address]: Charles Hendricks ENTERED: 10/11/[address]: Syd,Lab SPEC TYPE: Surgical DEPT: ULZ CASTELLANOS ORDERED: HE/2, Gross/Micro L4, Decalcification ORDERED: [...] of the femoral neck is xiong-red, trabecular. [employer] are submitted following decalcification in 2 cassettes as follows: A1 - Femoral head A2 - Reamings from femoral neck CPT Codes 76460, 56054 -------- -------- Specimen: [id number] Received: 10/11/23 Status: MAURI Roblerolaurent Num: [id number] Spec Type: Surgical Subm Dr: Charles Hendricks Tissues: A Femoral Head - Fracture (RT HIP) Procedures: HE/2, Gross/Micro L4, Decalcification -------- Patient: Yvonne Liz [id number] (Continued) -------- Signed (signature on file) Agatha Brantley MD 10/18/23 1237 Normal [facility] XR hip RT min 2V(w/wo pelvis )*on 05-10-2023 XR hip RT min 2V(w/wo pelvis)* [address] [address] XRay Report Signed Patient: Yvonne Liz MR#: [id number] [birth year] : 1945 Acct:[id number] Age/Sex: 77 / F ADM Date: 05/10/23 [...] Nick Stokes M.D.05/10/2023 3:23 PM Dictation Location: [place] [address] Transcribed By: [facility] 05/10/23 152 Dictated By: Nick Stokes DO 05/10/23 1521 Signed By: 05/10/23 1523 [facility] XR Spine Lumbar Complete w/F maxi AND [place] 12-10-2022 XR Spine Lumbar Complete w/Flex AND [...] by Roosevelt Motley on 12/10/2022 1457 Normal [facility] XR Hip Complete Right*on XR Hip Complete Right* HISTORY: Posterior hip radiating pain falls x 2 years FINDINGS: Mild bilateral superior medial hip joint space loss. No pincer or CAM deformities. Prominent arterial calcifications. IMPRESSION: 1. 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 Report reported and signed by Bonilla Mckeon on 04/29/2022 1031 Normal [facility] Complete Blood Count with Au to Diffon 01-13-2022 Basophils (Bld) [#/Vol] 0.06 10*3/uL Normal 0.00-0.20 [facility] Comment on above: Performed By: #### V ITD, CMP, TSH reflex FT4, CBCAD, FE Prof #### [facility] [address] [place], [place] [id number] Basophils/100 WBC (Bld) 1.3 % Normal [facility] Comment on above: Performed By: #### V ITD, CMP, TSH reflex FT4, CBCAD, FE Prof #### [facility] [address] [place], [place] [id number] Eosinophils (Bld) [#/Vol] 0.36 10*3/uL Normal 0.02-0.50 [facility] Comment on above: Performed By: #### V ITD, CMP, TSH reflex FT4, CBCAD, FE Prof #### [facility] [address] [place], [place] [id number] Eosinophils/100 WBC (Bld) 7.6 % Normal [facility] Comment on above: Performed By: #### V ITD, CMP, TSH reflex FT4, CBCAD, FE Prof #### [facility] [address] [place], [place] [id number] Erythrocyte distribution width (RBC) [Ratio] 12.1 % Normal 11.0-15.0 [facility] Comment on above: Performed By: #### V ITD, CMP, TSH reflex FT4, CBCAD, FE Prof #### [facility] [address] [place], [place] [id number] Hematocrit (Bld) [Volume fraction] 34.0 % Low 35.0-47.0 [facility] Comment on above: Performed By: #### V ITD, CMP, TSH reflex FT4, CBCAD, FE Prof #### [facility] [address] [place], [place] [id number] Hemoglobin (Bld) [Mass/Vol] 11.9 g/dL Normal 11.6-15.5 [facility] Comment on above: Performed By: #### V ITD, CMP, TSH reflex FT4, CBCAD, FE Prof #### [facility] [address] [place], [place] [id number] Lymphocytes (Bld) [#/Vol] 1.2 10*3/uL Normal 0.9-3.9 [facility] Comment on above: Performed By: #### V ITD, CMP, TSH reflex FT4, CBCAD, FE Prof #### [facility] [address] [place], [place] [id number] Lymphocytes/100 WBC (Bld) 26.1 % Normal [facility] Comment on above: Performed By: #### V ITD, CMP, TSH reflex FT4, CBCAD, FE Prof #### [facility] [address] [place], [place] [id number] MCH (RBC) [Entitic mass] 34.0 pg High 27.0-33.0 [facility] Comment on above: Performed By: #### V ITD, CMP, TSH reflex FT4, CBCAD, FE Prof #### [facility] [address] [place], [place] [id number] MCHC (RBC) [Mass/Vol] 35.0 g/dL Normal 32.0-36.0 [facility] Comment on above: Performed By: #### V ITD, CMP, TSH reflex FT4, CBCAD, FE Prof #### [facility] [address] [place], [place] [id number] MCV (RBC) [Entitic vol] 97 fL Normal 80-100 [facility] Comment on above: Performed By: #### V ITD, CMP, TSH reflex FT4, CBCAD, FE Prof #### [facility] [address] [place], [place] [id number] Monocytes (Bld) [#/Vol] 0.4 10*3/uL Normal 0.2-0.9 [facility] Comment on above: Performed By: #### V ITD, CMP, TSH reflex FT4, CBCAD, FE Prof #### [facility] [address] [place], [place] [id number] Monocytes/100 WBC (Bld) 8.9 % Normal [facility] Comment on above: Performed By: #### V ITD, CMP, TSH reflex FT4, CBCAD, FE Prof #### [facility] [address] [place], [place] [id number] Neutrophils (Bld) [#/Vol] 2.6 10*3/uL Normal 1.5-7.8 [facility] Comment on above: Performed By: #### V ITD, CMP, TSH reflex FT4, CBCAD, FE Prof #### [facility] [address] [place], [place] [id number] Neutrophils/100 WBC (Bld) 55.9 % Normal [facility] Comment on above: Performed By: #### V ITD, CMP, TSH reflex FT4, CBCAD, FE Prof #### [facility] [address] [place], [place] [id number] Platelet mean volume (Bld) [Entitic vol] 11.00 fL Normal 7.50-12.50 [facility] Comment on above: Performed By: #### V ITD, CMP, TSH reflex FT4, CBCAD, FE Prof #### [facility] [address] [place], [place] [id number] Platelets (Bld) [#/Vol] 102 10*3/uL Low 140-400 [facility] Comment on above: Performed By: #### V ITD, CMP, TSH reflex FT4, CBCAD, FE Prof #### [facility] [address] [place], [place] [id number] RBC (Bld) [#/Vol] 3.50 10*6/uL Low 3.90-5.20 [place] [facility] Comment on above: Performed By: #### V ITD, CMP, TSH reflex FT4, CBCAD, FE Prof #### [facility] [address] [place], [place] [id number] RDW-SD 42.1 fL Normal 37.0-50.0 [facility] Comment on above: Performed By: #### V ITD, CMP, TSH reflex FT4, CBCAD, FE Prof #### [facility] [address], [place] [id number] WBC (Bld) [#/Vol] 4.7 10*3/uL Normal 3.8-11.0 [place] [employer] Comment on above: Performed By: #### V ITD, CMP, TSH reflex FT4, CBCAD, FE Prof #### [facility] [address], [place] [id number] Comprehensive Metabolic Pane [facility] 01-13-2022 Albumin [Mass/Vol] 4.2 g/dL Normal 3.6-5.1 [place] [employer] Comment on above: Performed By: #### V ITD, CMP, TSH reflex FT4, CBCAD, FE Prof #### [facility] [address], [place] [id number] Albumin/Globulin [Mass ratio] 1.8 {ratio} Normal 1.0-2.5 [facility] Strategic Marketing Leader Comment on above: Performed By: #### V ITD, CMP, TSH reflex FT4, CBCAD, FE Prof #### [facility] [address], [place] [id number] ALP [Catalytic activity/Vol] 83 U/L Normal 35-119 [facility] Strategic Marketing Leader Comment on above: Performed By: #### V ITD, CMP, TSH reflex FT4, CBCAD, FE Prof #### [facility] [address], [place] [id number] ALT [Catalytic activity/Vol] 28 U/L Normal 6-33 [facility] Strategic Marketing Leader Comment on above: Result Comment: 07/09 Female reference range changed. Performed By: #### V ITD, CMP, TSH reflex FT4, CBCAD, FE Prof #### [facility] [address], [place] [id number] Anion gap [Moles/Vol] 12 mmol/L Normal 12-20 [facility] Specialist Comment on above: Result Comment: Effe ctive 08/14/2019 reference range changed. Performed By: #### V ITD, CMP, TSH reflex FT4, CBCAD, FE Prof #### [facility] [address], [place] [id number] AST [Catalytic activity/Vol] 36 U/L High 9-34 [facility] Strategic Marketing Leader Comment on above: Performed By: #### V ITD, CMP, TSH reflex FT4, CBCAD, FE Prof #### [facility] [address], [place] [id number] Bilirubin [Mass/Vol] 0.48 mg/dL Normal 0.30-1.20 [facility] Comment on above: Performed By: #### V ITD, CMP, TSH reflex FT4, CBCAD, FE Prof #### [facility] [address], [place] [id number] BUN/CREA 19 Ratio Normal 6-22 [facility] Comment on above: Performed By: #### V ITD, CMP, TSH reflex FT4, CBCAD, FE Prof #### [facility] [address], [place] [id number] Calcium [Mass/Vol] 9.5 mg/dL Normal 8.6-10.2 [facility] Comment on above: Performed By: #### V ITD, CMP, TSH reflex FT4, CBCAD, FE Prof #### [facility] [address], [place] [id number] Chloride [Moles/Vol] 105 mmol/L Normal 98-107 [facility] Comment on above: Performed By: #### V ITD, CMP, TSH reflex FT4, CBCAD, FE Prof #### [facility] [address], [place] [id number] CO2 [Moles/Vol] 27 mmol/L Normal 20-31 [facility] Comment on above: Performed By: #### V ITD, CMP, TSH reflex FT4, CBCAD, FE Prof #### [facility] [address], [place] [id number] Creatinine [Mass/Vol] 1.0 mg/dL Normal 0.6-1.4 [facility] Comment on above: Performed By: #### V ITD, CMP, TSH reflex FT4, CBCAD, FE Prof #### [facility] [address], [place] [id number] eGFRAA 67 mL/min/1.73m2 Normal >60 [facility] Comment on above: Performed By: #### V ITD, CMP, TSH reflex FT4, CBCAD, FE Prof #### [facility] [address], [place] [id number] eGFRNAA 55 mL/min/1.73m2 Low >60 [facility] Strategic Marketing Leader Comment on above: Performed By: #### V ITD, CMP, TSH reflex FT4, CBCAD, FE Prof #### [facility] [address], [place] [id number] Globulin (S) [Mass/Vol] 2.3 g/dL Normal 1.9-3.7 [facility] Strategic Marketing Leader Comment on above: Performed By: #### V ITD, CMP, TSH reflex FT4, CBCAD, FE Prof #### [facility] [address], [place] [id number] Glucose [Mass/Vol] 85 mg/dL Normal 65-99 [place] [employer] Comment on above: Result Comment: For FASTING Glucose --- ADA reference ranges: Normal 65-99 mg/dl Prediabetes 100-125 Diabetes >/= 126 Performed By: #### V ITD, CMP, TSH reflex FT4, CBCAD, FE Prof #### [facility] [address], [place] [id number] Potassium [Moles/Vol] 3.8 mmol/L Normal 3.5-5.5 [facility] Comment on above: Performed By: #### V ITD, CMP, TSH reflex FT4, CBCAD, FE Prof #### [facility] [address], [place] [id number] Protein [Mass/Vol] 6.5 g/dL Normal 6.1-8.1 [place] [employer] Comment on above: Performed By: #### V ITD, CMP, TSH reflex FT4, CBCAD, FE Prof #### [facility] [address], [place] [id number] Sodium [Moles/Vol] 140 mmol/L Normal 135-146 [place] [employer] Comment on above: Performed By: #### V ITD, CMP, TSH reflex FT4, CBCAD, FE Prof #### [facility] [address], [place] [id number] Urea nitrogen [Mass/Vol] 19 mg/dL Normal 7-25 [facility] Strategic Marketing Leader Comment on above: Performed By: #### V ITD, CMP, TSH reflex FT4, CBCAD, FE Prof #### [facility] [address], [place] [id number] Iron Profileon 01-13-2022 %FESAT 45 % Normal 11-50 [facility] Specialist Comment on above: Performed By: #### V ITD, CMP, TSH reflex FT4, CBCAD, FE Prof #### [facility] [address], [place] [id number] FE 129 ug/dL Normal 40-190 [facility] Specialist Comment on above: Result Comment: Refe rence range change 06/25/2017. Prior reference range F 37-145 ug/dL, M 59-158 ug/dL. Performed By: #### V ITD, CMP, TSH reflex FT4, CBCAD, FE Prof #### [facility] [address], [place] [id number] TIBC 284 ug/dL Normal 250-450 [facility] Specialist Comment on above: Performed By: #### V ITD, CMP, TSH reflex FT4, CBCAD, FE Prof #### [facility] [address], [place] [id number] UIBC 155 ug/dL Normal 112-347 [facility] Specialist Comment on above: Performed By: #### V ITD, CMP, TSH reflex FT4, CBCAD, FE Prof #### [facility] [address], [place] [id number] TSH w/ Reflex to Free T4on 0 01-13-2022 TSH 3.100 uIU/mL Normal 0.400-4.500 [facility] Strategic Marketing Leader Comment on above: Performed By: #### V ITD, CMP, TSH reflex FT4, CBCAD, FE Prof #### [facility] [address], [place] [id number] US Venous, Bilateral, [place] 01-13-2022 US Venous, Bilateral, Lower Ext HISTORY: [...] by Bonilla Mckeon on 01/13/2022 1441 Normal [facility] Specialist Vitamin B12/Folateon 022 Cobalamin (Vitamin B12) [Mass/Vol] 258 pg/mL Normal 211-946 [facility] Strategic Marketing Leader Comment on above: Performed By: #### B 12/Fol #### [facility] [address], [place] [id number] FOL 11.6 ng/mL Normal >4.7 [facility] Specialist Comment on above: Result Comment: Refe rence range change 06/25/2017. Prior reference range F 4.8-37.3 ng/mL, M 4.5-32.2 ng/mL. Performed By: #### B 12/Fol #### [facility] [address], [place] [id number] Vitamin D 25-OHon 01-13-2022 VIT D 25 OH 30 ng/ml Normal >29 [facility] Strategic Marketing Leader Comment on above: Result Comment: Ching min D Status Deficiency <20 ng/mL Insufficiency 20-29 ng/mL Optimal 30-100 ng/mL Possible Toxicity >=150 ng/mL Performed By: #### V ITD, CMP, TSH reflex FT4, CBCAD, FE Prof #### [facility] [address], [place] [id number] Vital Signs Date Time Vital Sign Value Performing Clinician Facility 10-06-2024 14:15-0500 Body height 160 cm Cynthia Leong MD Work Phone: [facility] 10-06-2024 14:15-0500 Body mass index (BMI) [Ratio] 25.9 kg/m2 Cynthia Leong MD Work Phone: [facility] 10-06-2024 14:15-0500 Body weight 66.32 kg Cynthia Leong MD Work Phone: [facility] 10-06-2024 14:15-0500 Diastolic blood pressure 90 mm[Hg] Cynthia Leong MD Work Phone: [facility] 10-06-2024 14:15-0500 Heart rate 88 /min Cynthia Leong MD Work Phone: [facility] 10-06-2024 14:15-0500 SaO2% (BldA) [Mass fraction] 97 % Cynthia Leong MD Work Phone: [facility] 10-06-2024 14:15-0500 Systolic blood pressure 138 mm[Hg] Cynthia Leong MD Work Phone: [facility] 09-26-2024 11:01-0500 Body mass index (BMI) [Ratio] 26.36 kg/m2 Roslyn Snowburg CUSTOMS ENTRY CLERK Work Phone: [facility] 09-26-2024 11:01-0500 Body temperature 98.49 [degF] Roslyn Snowburg CUSTOMS ENTRY CLERK Work Phone: [facility] 09-26-2024 11:01-0500 Body weight 67.5 kg Roslyn Snowburg CUSTOMS ENTRY CLERK Work Phone: [facility] 09-26-2024 11:01-0500 Diastolic blood pressure 80 mm[Hg] Roslyn Hakeithenburg CUSTOMS ENTRY CLERK Work Phone: [facility] 09-26-2024 11:01-0500 Heart rate 73 /min Roslyn Laurentenburg CUSTOMS ENTRY CLERK Work Phone: [facility] 09-26-2024 11:01-0500 SaO2% (BldA) [Mass fraction] 95 % Roslyn Laurentenburg CUSTOMS ENTRY CLERK Work Phone: [facility] 09-26-2024 11:01-0500 Systolic blood pressure 122 mm[Hg] Rosyln Hakeithenburg CUSTOMS ENTRY CLERK Work Phone: [facility] 06-22-2024 16:17-0500 Body height 160 cm Cynthia Leong MD Work Phone: [facility] 06-22-2024 16:17-0500 Body mass index (BMI) [Ratio] 25.37 kg/m2 Cynthia Leong MD Work Phone: [facility] 06-22-2024 16:17-0500 Body weight 64.95 kg Cynthia Leong MD Work Phone: [facility] 06-22-2024 16:17-0500 Diastolic blood pressure 98 mm[Hg] Cynthia Leong MD Work Phone: [facility] 06-22-2024 16:17-0500 Heart rate 80 /min Cynthia Leong MD Work Phone: [facility] 06-22-2024 16:17-0500 SaO2% (BldA) [Mass fraction] 95 % Cynthia Leong MD Work Phone: [facility] 06-22-2024 16:17-0500 Systolic blood pressure 160 mm[Hg] Cynthia Leong MD Work Phone: [facility] 05-18-2024 10:14-0400 Heart rate 74 /min Divina Castellano CUSTOMS ENTRY CLERK Work Phone: [facility] 05-18-2024 10:14-0400 SaO2% (BldA) [Mass fraction] 99 % Divina Castellano CUSTOMS ENTRY CLERK Work Phone: [facility] 05-18-2024 09:50-0400 Body mass index (BMI) [Ratio] 24.44 kg/m2 Divina Castellano CUSTOMS ENTRY CLERK Work Phone: [facility] 05-18-2024 09:50-0400 Body temperature 97.39 [degF] Divina Castellano CUSTOMS ENTRY CLERK Work Phone: [facility] 05-18-2024 09:50-0400 Body weight 64.59 kg Divina Castellano CUSTOMS ENTRY CLERK Work Phone: [facility] 05-18-2024 09:50-0400 Diastolic blood pressure 82 mm[Hg] Divina Castellano CUSTOMS ENTRY CLERK Work Phone: [facility] 05-18-2024 09:50-0400 Systolic blood pressure 138 mm[Hg] Divina Castellano CUSTOMS ENTRY CLERK Work Phone: [facility] 05-10-2023 10:45-0400 Body height 162.56 cm Ap Holland Other [employer] Other 05-10-2023 10:45-0400 Body mass index (BMI) [Ratio] 25.4 kg/m2 Ap Holland Other [employer] Other 05-10-2023 10:45-0400 Body weight 67.13 kg Ap Holland Other [employer] Other 05-10-2023 10:45-0400 Diastolic blood pressure 80 mm[Hg] Ap Skyler Other [employer] Other 05-10-2023 10:45-0400 Systolic blood pressure 122 mm[Hg] Ap Skyler Other [employer] Other 04-06-2023 11:15-0400 Body height 162.56 cm Ap Holland Other [employer] Other 04-06-2023 11:15-0400 Body mass index (BMI) [Ratio] 26.09 kg/m2 Ap Holland Other [employer] Other 04-06-2023 11:15-0400 Body weight 68.95 kg Ap Holland Other [employer] Other 04-06-2023 11:15-0400 Diastolic blood pressure 84 mm[Hg] Ap Skyler Other [employer] Other 04-06-2023 11:15-0400 Systolic blood pressure 124 mm[Hg] Ap Skyler Other [employer] Other 03-23-2023 11:30-0400 Body height 162.56 cm Ap Holland Other [employer] Other 03-23-2023 11:30-0400 Body mass index (BMI) [Ratio] 26.09 kg/m2 Ap Holland Other [employer] Other 03-23-2023 11:30-0400 Body weight 68.95 kg Ap Holland Other [employer] Other 03-23-2023 11:30-0400 Diastolic blood pressure 84 mm[Hg] Ap Holland Other [employer] Other 03-23-2023 11:30-0400 Systolic blood pressure 140 mm[Hg] Ap Holland Other [employer] Other 03-08-2023 09:00-0400 Body height 162.56 cm Ap Holland Other [employer] Other 03-08-2023 09:00-0400 Body mass index (BMI) [Ratio] 26.74 kg/m2 Ap Holland Other [employer] Other 03-08-2023 09:00-0400 Body weight 70.67 kg Ap Holland Other [employer] Other 03-08-2023 09:00-0400 Diastolic blood pressure 80 mm[Hg] Ap Holland Other [employer] Other 03-08-2023 09:00-0400 SaO2% (BldA) [Mass fraction] 99 % Ap Holland Other [employer] Other 03-08-2023 09:00-0400 Systolic blood pressure 130 mm[Hg] Ap Holland Other [employer] Other Encounters Encounter Date Encounter Type Care Provider Facility Start: 01-04-2025 End: 01-04-2025 Bamboo flowsheet Clara Baly [employer] SUPERVISOR [facility] Start: 01-04-2025 End: 01-04-2025 Bamboo flowsheet Clarajomar Valenzuelabley [employer]FORMATION [employer] SUPERVISOR [facility] Start: 01-04-2025 End: 01-04-2025 ambulatory Clara Baly [employer] SUPERVISOR [facility] Comment on above: Lumbar paraspinal mu scle spasm (Primary Dx); Weakness of both lower extremities Start: 01-02-2025 End: 01-02-2025 Bamboo flowsheet Shiva Agarwal PT Work Phone: [facility] Start: 01-02-2025 End: 01-02-2025 Bamboo flowsheet Shiva Agarwal PT Work Phone: [facility] Start: 01-02-2025 End: 01-02-2025 ambulatory Shiva Agarwal PT Work Phone: [facility] Comment on above: Lumbar paraspinal mu scle spasm (Primary Dx); Weakness of both lower extremities; Frequent falls Start: 2024 End: 2024 ambulatory CYNTHIA LEONG Not Available Start: 12-28-2024 End: 12-28-2024 ambulatory CLARA ECHEVERRIA Not Available Start: 12-26-2024 End: 12-26-2024 Bamboo flowsheet Clara Nicolasbley [employer]FORMATION C[employer] SUPERVISOR [facility] Start: 12-26-2024 End: 12-26-2024 Bamboo flowsheet Clara Nicolasbley [employer]FORMATION [employer] SUPERVISOR [facility] Start: 12-26-2024 End: 12-26-2024 ambulatory Clara Nicolasbley [employer]FORMATION [employer] SUPERVISOR [facility] Comment on above: Lumbar paraspinal mu scle spasm (Primary Dx); Weakness of both lower extremities; Frequent falls Start: 12-21-2024 End: 12-21-2024 Bamboo flowsheet Clara Baly [employer]FORMATION [employer] SUPERVISOR [facility] Start: 12-21-2024 End: 12-21-2024 Bamboo flowsheet Clara Baly [employer]FORMATION [employer] SUPERVISOR [facility] Start: 12-21-2024 End: 12-21-2024 ambulatory Clara Baly [employer]FORMATION [employer] SUPERVISOR [facility] Comment on above: Lumbar paraspinal mu scle spasm (Primary Dx); Weakness of both lower extremities; Frequent falls Start: 12-15-2024 End: 12-15-2024 Refill Nikki Coughlin MA [facility] Comment on above: Gastroesophageal ref lux disease without esophagitis; Mixed hyperlipidemia ([facility]/HCC); Essential hypertension ([facility]/HCC); Acquired hypothyroidism ([facility]) Start: 12-14-2024 End: 12-14-2024 Bamboo flowsheet Clara Baly [employer] INFORMATION [employer] SUPERVISOR [facility] Start: 12-14-2024 End: 12-14-2024 Bamboo flowsheet Clara Baly [employer]FORMATION [employer] SUPERVISOR [facility] Start: 12-14-2024 End: 12-14-2024 ambulatory Clara Baly [employer]FORMATION [employer] SUPERVISOR [facility] Comment on above: Lumbar paraspinal mu scle spasm (Primary Dx); Weakness of both lower extremities; Frequent falls Start: 12-11-2024 End: 12-11-2024 Bamboo flowsheet Clara Baly [employer]FORMATION [employer] SUPERVISOR [facility] Start: 12-11-2024 End: 12-11-2024 Bamboo flowsheet Clara Baly [employer]FORMATION [employer] SUPERVISOR [facility] Start: 12-11-2024 End: 12-12-2024 ambulatory Clara Baly [employer]FORMATION [employer] SUPERVISOR [facility] Comment on above: Lumbar paraspinal mu scle spasm (Primary Dx); Weakness of both lower extremities; Frequent falls Essential hypertensi on ([facility]/HCC) Start: 12-07-2024 End: 12-07-2024 Bamboo flowsheet Shiva Agarwal PT Work Phone: [facility] Start: 12-07-2024 End: 12-07-2024 Bamboo flowsheet Shiva Agarwal PT Work Phone: [facility] Start: 12-07-2024 End: 12-07-2024 ambulatory Shiva Agarwal PT Work Phone: [facility] Comment on above: Lumbar paraspinal mu scle spasm (Primary Dx); Weakness of both lower extremities; Frequent falls Start: 12-01-2024 End: 12-01-2024 Refill Cynthia Leong MD Work Phone: [facility] Comment on above: Acquired hypothyroid ism (CMS/HCC) Start: 10-06-2024 End: 10-06-2024 Office outpatient visit 25 minutes Cynthia Leong MD Work Phone: [facility] Comment on above: Acute non-recurrent maxillary sinusitis (Primary Dx); Thrombocytopenia, unspecified (CMS/HCC); CKD stage 3a, GFR 45-59 ml/min (CMS/HCC); Pulmonary hypertension, unspecified (CMS/HCC); Other pancytopenia (CMS/HCC) Start: 10-06-2024 End: 10-06-2024 ambulatory CYNTHIA LEONG Not Available Start: 10-06-2024 End: 10-06-2024 Bamboo flowsheet Cynthia Leong MD Work Phone: [facility] Start: 10-06-2024 End: 10-06-2024 Bamboo flowsheet Cynthia Leong MD Work Phone: [facility] Start: 09-27-2024 End: 09-27-2024 Telephone encounter Cynthia Leong MD Work Phone: [facility] Start: 09-26-2024 End: 09-26-2024 Bamboo flowsheet Roslyn Briscoe CUSTOMS ENTRY CLERK Work Phone: [facility] Start: 09-26-2024 End: 09-26-2024 Bamboo flowsheet Roslyn Briscoe CUSTOMS ENTRY CLERK Work Phone: [facility] Start: 09-26-2024 End: 02-18-2025 Office outpatient visit 15 minutes Roslynflorentino Snowsamuel CUSTOMS ENTRY CLERK Work Phone: [facility] Comment on above: Viral URI with cough (Primary Dx); Acute cough; Nasal congestion Start: 09-26-2024 End: 09-26-2024 ambulatory ROSLYN BRISCOE Not Available Start: 09-04-2024 End: 09-04-2024 Refill Libby Ward CUSTOMS ENTRY CLERK Work Phone: [facility] Comment on above: Gastroesophageal ref lux disease without esophagitis Mixed hyperlipidemia (CMS/HCC); Essential hypertension (CMS/HCC) Start: 08-03-2024 End: 08-03-2024 Bamboo flowsheet Alana Lopez PT [facility] Start: 08-03-2024 End: 08-03-2024 Bamboo flowsheet Alana Lopez PT [facility] Start: 08-03-2024 End: 08-03-2024 ambulatory Alana Lopez PT [facility] Comment on above: Spinal stenosis, uns pecified spinal region (Primary Dx); Lumbar and sacral arthritis Start: 07-31-2024 End: 07-31-2024 Refill Cynthia Leong MD Work Phone: [facility] [...] 07-25-2024 End: 07-25-2024 Bamboo flowsheet Mariano Ghosh [employer]FORMATION [employer] SUPERVISOR [facility] Start: 07-25-2024 End: 07-25-2024 Bamboo flowsheet Mariano Ghosh [employer]FORMATION [employer] SUPERVISOR [facility] Start: 07-25-2024 End: 07-25-2024 ambulatory Mariano Ghosh [employer]FORMATION [employer] SUPERVISOR [facility] Comment on above: Spinal stenosis, uns pecified spinal region (Primary Dx); Lumbar and sacral arthritis Start: 07-19-2024 End: 07-19-2024 ambulatory Mariano Ghosh [employer]FORMATION [employer] SUPERVISOR [facility] Comment on above: Spinal stenosis, uns pecified spinal region (Primary Dx); Lumbar and sacral arthritis Start: 07-18-2024 End: 07-19-2024 ambulatory Mariano Ghosh [employer]FORMATION [employer] SUPERVISOR [facility] Comment on above: Spinal stenosis, uns pecified spinal region (Primary Dx); Lumbar and sacral arthritis Start: 07-18-2024 End: 07-18-2024 Bamboo flowsheet Mariano Ghosh [employer]FORMATION [employer] SUPERVISOR [facility] Start: 07-18-2024 End: 07-18-2024 Bamboo flowsheet Mariano Ghosh [employer]FORMATION [employer] SUPERVISOR [facility] Start: 07-14-2024 End: 07-14-2024 Bamboo flowsheet Alana Lopez PT [facility] Start: 07-14-2024 End: 07-14-2024 Bamboo flowsheet Alana Lopez PT [facility] Start: 07-14-2024 End: 07-14-2024 ambulatory Alana Lopez PT [facility] Comment on above: Spinal stenosis, uns pecified spinal region (Primary Dx); Lumbar and sacral arthritis Start: 07-11-2024 End: 07-11-2024 ambulatory Mariano Ghosh [employer]FORMATION [employer] SUPERVISOR [facility] Comment on above: Spinal stenosis, uns pecified spinal region (Primary Dx); Lumbar and sacral arthritis Start: 07-04-2024 End: 07-04-2024 ambulatory Mariano Ghosh [employer]FORMATION [employer] SUPERVISOR [facility] Comment on above: Spinal stenosis, uns pecified spinal region (Primary Dx); Lumbar and sacral arthritis Start: 06-30-2024 End: 06-30-2024 ambulatory Mariano Ghosh [employer] SUPERVISOR [facility] Comment on above: Spinal [...] 06-20-2024 End: 06-20-2024 Bamboo flowsheet Mariano Ghosh [employer]FORMATION [employer] SUPERVISOR [facility] Start: 06-20-2024 End: 06-20-2024 Bamboo flowsheet Mariano Stefano [employer]FORMATION [employer] SUPERVISOR [facility] Start: 06-20-2024 End: 06-20-2024 ambulatory Mariano Ghosh [employer]FORMATION [employer] SUPERVISOR [facility] Comment on above: Spinal stenosis, uns pecified spinal region (Primary Dx); Lumbar and sacral arthritis Start: 06-16-2024 End: 06-16-2024 Bamboo flowsheet Mariano Ghosh [employer]FORMATION [employer] SUPERVISOR [facility] Start: 06-16-2024 End: 06-16-2024 Bamboo flowsheet Mariano Ghosh [employer]FORMATION [employer] SUPERVISOR [facility] Start: 06-16-2024 End: 06-16-2024 ambulatory Mariano Ghosh [employer]FORMATION [employer] SUPERVISOR [facility] Comment on above: Spinal stenosis, uns pecified spinal region (Primary Dx); Lumbar and sacral arthritis Start: 06-14-2024 End: 06-14-2024 Bamboo flowsheet Mariano Stefano [employer]FORMATION [employer] SUPERVISOR [facility] Start: 06-14-2024 End: 06-14-2024 Bamboo flowsheet Mariano Ghosh [employer]FORMATION [employer] SUPERVISOR [facility] Start: 06-14-2024 End: 06-14-2024 ambulatory Mariano Ghosh [employer]FORMATION [employer] SUPERVISOR [facility] Comment on above: Spinal stenosis, uns pecified spinal region (Primary Dx); Lumbar and sacral arthritis Start: 06-13-2024 End: 06-13-2024 Refill Cynthia Leong MD Work Phone: [facility] Comment on above: Essential hypertensi on (CMS/HCC) Start: 06-07-2024 End: 06-07-2024 ambulatory Mariano Ghosh [employer] SUPERVISOR [facility] Comment on above: Spinal [...] 05-22-2024 End: 05-22-2024 Orders Only Libby Ward CUSTOMS ENTRY CLERK Work Phone: [facility] Comment on above: Acute cystitis witho ut hematuria (Primary Dx) Start: 05-18-2024 End: 05-18-2024 Bamboo flowsheet Divina Castellano CUSTOMS ENTRY CLERK Work Phone: [facility] Start: 05-18-2024 End: 05-18-2024 Bamboo flowsheet Divina Castellano CUSTOMS ENTRY CLERK Work Phone: [facility] Start: 05-18-2024 End: 05-18-2024 Telephone encounter Cynthia Leong MD Work Phone: [facility] Comment on above: Vertigo (Called to o ffer PT Eval for vertigo raghav Lopez PT on 05/23 @ 8:00 am; requested call back terry.); Call Back (She contacted and scheduled per offer 05/23 raghav Lopez PT.) Start: 05-18-2024 End: 05-18-2024 Office outpatient visit 25 minutes Divina Castellano CUSTOMS ENTRY CLERK Work Phone: [facility] Comment on above: Vertigo (Primary Dx) ; Spinal stenosis, unspecified spinal region; Lumbar and sacral arthritis; Dysuria; Essential hypertension ([facility]/HCC) Start: 05-18-2024 End: 05-18-2024 ambulatory DIVINA CASTELLANO Not Available Start: 05-17-2024 End: 05-17-2024 Refill Cynthia Leong MD Work Phone: [facility] Comment on above: Gastroesophageal ref lux disease without esophagitis Start: 05-15-2024 End: 05-15-2024 ambulatory Kulwant García MD Facility:[facility] Start: 04-17-2024 End: 04-17-2024 ambulatory Kulwant García MD Facility:[facility] Start: 04-03-2024 End: 04-03-2024 ambulatory Kulwant García MD Facility:[facility] Start: 03-21-2024 End: 03-21-2024 ambulatory ALANAJAMEY LOPEZ Not Available Start: 03-14-2024 End: 03-14-[address] Not Available Start: 03-14-2024 End: 03-14-2024 ambulatory ALANA LOPEZ Not Available Start: 03-13-2024 End: 03-13-2024 ambulatory DIVINA PARSON Not Available Start: 03-10-2024 End: 03-10-2024 ambulatory CYNTHIAREJI LEONG Not Available Start: 02-17-2024 End: 02-17-2024 ambulatory ROSLYN BRISCOE Not Available Start: 01-18-2024 End: 01-18-2024 ambulatory ROSLYN BRISCOE Not Available Start: 10-08-2023 End: 10-08-2023 ambulatory Charles Hendricks Facility:[facility] Start: 09-27-2023 End: 09-27-2023 ambulatory Kulwant García MD Facility: [facility] Start: 09-13-2023 End: 09-13-2023 ambulatory Kulwant García MD Facility: [facility] Start: 05-10-2023 Office outpatient vi sit 25 minutes Ap [facility] Start: 05-10-2023 End: 05-10-2023 ambulatory Ap Holland Facility:[facility] Start: 05-10-2023 End: 05-10-2023 ambulatory CUSTOMS ENTRY CLERK-C Roslyn Briscoe Work Phone: [facility] Work Phone: Start: 05-10-2023 End: 05-10-2023 Patient encounter procedure CUSTOMS ENTRY CLERK-C Roslyn Briscoe Work Phone: [facility] [place] Work Phone: Start: 04-29-2023 (PROC) PROCEDURE Ap Dickey [facility] Start: 04-29-2023 End: 04-29-2023 ambulatory Apkalin Holland Other [employer] Other Start: 04-06-2023 End: 04-06-2023 ambulatory Apkalin Holland Other [employer] Other Start: 04-06-2023 Office outpatient vi sit 25 minutes Ap [facility] Start: 03-23-2023 End: 03-23-2023 ambulatory Apkalin Holland Other [employer] Other Start: 03-23-2023 Office outpatient vi sit 15 minutes Ap Sk[facility] Start: 03-16-2023 (PROC) PROCEDURE Ap Holland [facility] Start: 03-16-2023 End: 03-16-2023 ambulatory Apkalin Holland Other [employer] Other Start: 03-09-2023 End: 03-09-2023 ambulatory Apkalin Holland Other [employer] Other Start: 03-09-2023 Telephone encounter Ap Holland [facility] Start: 03-08-2023 End: 03-08-2023 ambulatory Apkalin Holland Other [employer] Other Start: 03-08-2023 Office consultation new/estab patient 60 min Apkalin [facility] Procedures Date Procedure Procedure Detail Performing Clinician Start: 09-26-2024 STATUS COVID-19/FLU Angella Briscoe CUSTOMS ENTRY CLERK Work Phone: Start: 06-22-2024 Complete blood count with white cell differential, automated Cynthia Leong MD Work Phone: Start: 06-22-2024 Comprehensive metabo lic panel Cynthia Leong MD Work Phone: Start: 06-22-2024 Lipid panel Cynthia castaneda MD Work Phone: Start: 06-22-2024 TSH W/REFLEX TO FT4 Swathi Leong MD Work Phone: Start: 05-18-2024 Urnls dip stick/tabl et rgnt non-auto w/o micrscp Divina Castellano NP Work Phone: Start: 05-10-2023 Plain X-ray of right hip CUSTOMS ENTRY CLERK-C Roslyn Briscoe Work Phone: Plan of Treatment Date Care Activity Detail Author Start: 2025 Medicare Annual Well ness (AWV) Medicare Annual Wellness (AWV) [facility] Start: 04-09-2025 Influenza vaccination Influenz a Vaccine (Season Ended) [facility] Start: 01-04-2025 End: 01-04-2025 ambulatory [facility] Comment on above: Arrived Start: 2024 End: 2024 Patient encounter procedure 2024 10:00 AM EDT Office Visit [facility] [address] [place] [id number] Cynthia Leong MD [address] [place] [address] [facility] Start: 12-28-2024 End: 12-28-2024 ambulatory 12/28/2024 11:30 AM EDT Treatment [facility] [address] [facility] [address] [place] [id number] Clara Echeverria, TRAVEL INFORMATION CENTER SUPERVISOR [facility] Start: 12-26-2024 End: 12-26-2024 ambulatory 12/26/2024 10:00 AM EDT Treatment [facility] [address] [facility] [address] [place] [id number] Clara Echeverria, TRAVEL INFORMATION CENTER SUPERVISOR Lumbar paraspinal muscle spasm (Primary Dx); Weakness of both lower extremities; Frequent falls [facility] Comment on above: Lumbar paraspinal mu scle spasm (Primary Dx); Weakness of both lower extremities; Frequent falls Start: 12-21-2024 End: 12-21-2024 ambulatory [facility] Comment on above: Lumbar paraspinal mu scle spasm (Primary Dx); Weakness of both lower extremities; Frequent falls Start: 12-18-2024 End: 12-18-2024 ambulatory 12/18/2024 11:00 AM EDT Treatment [facility] [address] [place] [address] [place] [address] Shiva Agarwal, PT [address] [place] [address] [place] [address] [facility] Start: 12-14-2024 End: 12-14-2024 ambulatory [facility] Comment on above: Arrived Start: 12-11-2024 End: 12-11-2024 ambulatory [facility] Comment on above: Arrived Start: 12-07-2024 End: 12-07-2024 ambulatory 12/07/2024 2:00 PM EDT Evaluation [facility] [address] [place] [address] [place] [address] Shiva Agarwal, PT [address] [place] [address] Arrived [facility] Comment on above: Arrived Start: 10-06-2024 End: 10-06-2024 Patient encounter procedure 10/06/2024 2:40 PM EST Office Visit [facility] [address] [place] [phone] Cynthia Leong MD [address] [place] [address] Arrived [facility] Comment on above: Arrived Start: 10-06-2024 End: 10-06-2025 CBC W Auto Differential panel - Blood CBC and differential Lab Routine Thrombocytopenia, unspecified (CMS/HCC) CKD stage 3a, GFR 45-59 ml/min (CMS/HCC) Expected: 10/06/2024 (Approximate), Expires: 10/06/2025 [facility] Work Phone: Comment on above: Expected: 10/06/2024 (Approximate), Expires: 10/06/2025 Start: 10-06-2024 End: 10-06-2025 Comprehensive metabolic 2000 panel - Serum or Plasma Comprehensive metabolic panel Lab Routine Thrombocytopenia, unspecified (CMS/HCC) CKD stage 3a, GFR 45-59 ml/min (CMS/HCC) Expected: 10/06/2024 (Approximate), Expires: 10/06/2025 [facility] Comment on above: Expected: 10/06/2024 (Approximate), Expires: 10/06/2025 Start: 09-26-2024 End: 09-26-2024 Patient encounter procedure 09/26/2024 11:00 AM EST Office Visit [facility] [address] [place] [phone] Roslyn Briscoe NP [address] [place], [place] [id number] Arrived [facility] Comment on above: Arrived Start: 08-03-2024 Medicare Annual Well ness (AWV) Medicare Annual Wellness (AWV) [facility] Start: 08-03-2024 End: 08-03-2024 ambulatory 08/03/2024 12:30 PM EST Treatment [facility] [address] [facility] [address] [place] [address] Alana Lopez, PT [facility] Start: 07-31-2024 End: 07-31-2024 ambulatory 07/31/2024 12:00 PM EST Treatment [facility] [address] [facility] [address] [place] [address] Mariano Ghosh, TRAVEL INFORMATION CENTER SUPERVISOR [facility] Start: 07-28-2024 End: 07-28-2024 ambulatory 07/28/2024 1:00 PM EST Treatment [facility] [address] [facility] [address] [place] [address] Alana Lopez, PT Arrived [facility] Comment on above: Arrived Start: 07-27-2024 End: 07-27-2024 ambulatory [facility] Start: 07-25-2024 End: 07-25-2024 ambulatory [facility] Comment on above: Arrived Start: 07-19-2024 End: 07-19-2024 ambulatory 07/19/2024 1:00 PM EST Treatment [facility] [address] [place] [address] [place] [address] Mariano Ghosh, TRAVEL INFORMATION CENTER SUPERVISOR [facility] Start: 07-18-2024 End: 07-18-2024 ambulatory 07/18/2024 4:00 PM EST Treatment [facility] [address] [place] [address] [place] [address] Mariano Ghosh, TRAVEL INFORMATION CENTER SUPERVISOR Arrived [facility] Comment on above: Arrived Start: 07-17-2024 End: 07-17-2024 ambulatory 07/17/2024 12:30 PM EST Treatment [facility] [address] [place] [address] [place] [address] Mariano Ghosh, TRAVEL INFORMATION CENTER SUPERVISOR [facility] Start: 07-14-2024 End: 07-14-2024 ambulatory [facility] Comment on above: Arrived Start: 07-11-2024 End: 07-11-2024 ambulatory 07/11/2024 12:30 PM EST Treatment [facility] [address] [place] [address] [place] [address] Mariano Ghosh, TRAVEL INFORMATION CENTER SUPERVISOR [facility] Start: 07-04-2024 End: 07-04-2024 ambulatory 07/04/2024 12:30 PM EST Treatment [facility] [address] [place] [address] [place] [address] Mariano Ghosh, TRAVEL INFORMATION CENTER SUPERVISOR [facility] Start: 06-30-2024 End: 06-30-2024 ambulatory 06/30/2024 12:00 PM EST Treatment [facility] [address] [place] [address] [place] [address] Mariano Ghosh, TRAVEL INFORMATION CENTER SUPERVISOR [facility] Start: 06-23-2024 End: 06-23-2024 ambulatory 06/23/2024 10:30 AM EST Treatment [facility] [address] [place] [address] [place] [address] Alana Lopez, PT [facility] Start: 06-22-2024 End: 06-22-2024 Patient encounter procedure 06/22/2024 2:30 PM EST Office Visit [facility] [address] [place] [address] Cynthia Leong MD [address] [place] [address] [facility] Start: 06-20-2024 End: 06-20-2024 ambulatory 06/20/2024 2:00 PM EST Treatment [facility] [address] [facility] [address] [place] [address] Mariano Ghosh TRAVEL INFORMATION CENTER SUPERVISOR [facility] Start: 06-16-2024 End: 06-16-2024 ambulatory [facility] Comment on above: Arrived Start: 06-14-2024 End: 06-14-2024 ambulatory 06/14/2024 12:30 PM EST Treatment [facility] [address] [place] [address] [place] [address] Mariano Ghosh PTA [facility] Start: 06-07-2024 End: 06-07-2024 ambulatory 06/07/2024 2:30 PM EDT Treatment [facility] [address] [place] [address] [place] [address] Mariano Ghosh TRAVEL INFORMATION CENTER SUPERVISOR [facility] Start: 06-05-2024 End: 06-05-2024 [...] Urine culture Microbiology Routine Dysuria Ordered: 05/18/2024 [facility] Work Phone: Comment on above: Ordered: 05/18/2024 Immunizations Immunization Date Immunization Notes Care Provider Shalonda lai 07-08-2023 Pneumococcal Conjuga te PCV 20 Cynthia Leong MD Work Phone: [facility] 05-11-2023 influenza, high dose seasonal, preservative-free Cynthia Leong MD Work Phone: [facility] 05-11-2023 influenza virus vacc ine, unspecified formulation Cynthia Leong MD Work Phone: [facility] 06-23-2022 Influenza, High-dose Seasonal, Quadrivalent, Preservative Free Cynthia Leong MD Work Phone: [facility] 05-09-2021 Influenza, High-dose Seasonal, Quadrivalent, Preservative Free Cynthia Leong MD Work Phone: [facility] 06-21-2020 influenza, high dose seasonal, preservative-free Cynthia Leong MD Work Phone: [facility] Payers Date Payer Category Payer Private Health Insurance 2023 Self-pay 2021 Medicaid [employer] MEDICARE A DVANTAGE [id number] 2021 Medicare AETNA MEDICARE A DVANTAGE AETNA MEDICARE REPLACEMENT [id number] 2021-Present [address] [place] [id number] 2021 Medicare [id number] 2.16.840.1.799381.19 1943 Unknown [id number] 2.16.840.1.420062.3.579.2. 1943 Unknown [id number] 2.16.840.1.070886.3.579.2. 1943 Unknown [id number] 2.16.840.1.295474.3.579.2. 1943 Unknown [id number] 2.16.840.1.289359.3.579.2. 1943 Unknown [id number] 2.16.840.1.772879.3.579.2. 1943 Unknown [id number] 2.16.840.1.184626.3.579.2. 1258 1943 Unknown [id number] 2.16.840.1.684792.3.579.2. 1258 1943 Unknown [id number] 2.16.840.1.466466.3.579.2. 1258 1943 Unknown [id number] 2.16.840.1.576570.3.579.2. 1258 1943 Unknown [id number] 2.16.840.1.679109.3.579.2. 1258 1943 Unknown [id number] 2.16.840.1.386782.3.579.2. 1258 1943 Unknown [id number] 2.16.840.1.502770.3.579.2. 1258 1943 Unknown [id number] 2.16.840.1.319004.3.579.2. 1258 1943 Unknown [id number] 2.16.840.1.122455.3.579.2. 1258 1943 Unknown [id number] 2.16.840.1.541627.3.579.2. 1258 1943 Unknown [id number] 2.16.840.1.238060.3.579.2. 1258 1943 Unknown [id number] 2.16.840.1.746134.3.579.2. 1258 1943 Unknown [id number] 2.16.840.1.290858.3.579.2. 1258 1943 Unknown [id number] 2.16.840.1.103752.3.579.2. 1258 1943 Unknown [id number] 2.16.840.1.341207.3.579.2. 1258 1943 Unknown [id number] 2.16840.1.077988.3.579.2. 1258 1943 Unknown [id number] 2.16.840.1.273246.3.579.2. 1258 1943 Unknown [id number] 2.16.840.1.934455.3.579.2. 1258 1943 Unknown [id number] 2.16.840.1.714453.3.579.2. 1258 1943 Unknown [id number] 2.16840.1.949266.3.579.2. 1258 1943 Unknown [id number] 2.16.840.1.098353.3.579.2. 1258 1943 Unknown [id number] 2.16.840.1.529581.3.579.2. 1258 1943 Unknown [id number] 2.16.840.1.338328.3.579.2. 1258 1943 Unknown [id number] 2.16.840.1.508328.3.579.2. 1258 1943 Unknown [id number] 2.16.840.1.551079.3.579.2. 1258 1943 Unknown [id number] 2.16.840.1.305422.3.579.2. 1258 1943 Unknown [id number] 2.16.840.1.309037.3.579.2. 1258 1943 Unknown [id number] 2.16.840.1.701758.3.579.2. 1258 1943 Unknown [id number] 2.16.840.1.397664.3.579.2. 1258 1943 Unknown [id number] 2.16.840.1.275462.3.579.2. 1258 1943 Unknown [id number] 2.16.840.1.224390.3.579.2. 1258 1943 Unknown [id number] 2.16.840.1.707599.3.579.2. 1258 1943 Unknown [id number] 2.16.840.1.286310.3.579.2. 1258 1943 Unknown [id number] 2.16.840.1.580884.3.579.2. 1258 1943 Unknown [id number] 2.16.840.1.166274.3.579.2. 1258 1943 Unknown [id number] 2.16.840.1.991861.3.579.2. 1258 1943 Unknown [id number] 2.16.840.1.040974.3.579.2. 1258 1943 Unknown [id number] 2.16.840.1.937987.3.579.2. 1258 1943 Unknown [id number] 2.16.840.1.996926.3.579.2. 1259 Medicare [id number] 2.16.840.1.077037.19 Unknown [id number] 2.16.840.1.127110.3.579.2. 531 Unknown [id number] 2.16.840.1.108879.3.579.2. 531 Social History Date Type Detail Facility Start: 09-02-2023 End: [address] [facility] [employer] Other Start: 1945 Sex Assigned At Female F [facility] Start: 02-05-2023 Tobacco smoking stat [facility] Never smoked tobacco [facility] Work Phone: Start: 02-05-2023 Tobacco use and exposure Smokeless tobacco non-user [facility] Start: 03-14-2024 End: 2024 Alcoholic beverage intake Ex-drinker (finding) [facility] Start: 09-02-2023 End: 2024 History of Social function [facility] How [...] Sex assigned at Not on file [facility] Start: 10-21-2022 Gender identity Identifies as female gender (finding) [facility] Start: 09-26-2024 Alcohol Comment Caffeine intak e : 1-2 cups/day coffee [facility] Clinical Notes 03-08-2023 to 01-02-2025 Shiva Agarwal, LUIS FERNANDO - 01/02/2025 11:30 AM EDTTelephone Encounter - Cynthia Leong MD - 12/15/2024 1:04 PM EDTTelephone Encounter - Nikki Coughlin MA - 12/15/2024 12:33 PM EDT Note Date & Type Note Facility 01-02-2025 History of Presen t illness Narrative Images [...] on her. Pt walks with SPC and rollator throughout her home. Pt. Does have good and bad days were she has more leg weakness and poor balance than other. Pt. Reports after her last round of PT in 2023 she was walking better and felt like her had more balance. However, she has last a lot of strength in the last couple of months and started falling a lot more. Precautions: fall risk Subjective: [...] help improve her functional mobility and decrease low back pain. Lumbar paraspinal muscle tightness still present. Continue PT to help improve her quality of life. Outcome Measure: in chart Short Term Goal: To be met in 2 weeks Goal 1: Pt to be instructed in home exercise program. Back Sewer Goals: To be met in 10 weeks [...] sign below. Date: documented in this encounter [facility] 12-15-2024 Miscellaneous Notes Formattin g of this note might be different from the original. Refills sent. Pharmacy and dosage correct documented in this encounter [facility] 12-15-2024 Telephone encount er Note Refills sent. [facility] 12-15-2024 Telephone encount er Note Pharmacy and dosage correct [facility] 12-07-2024 History of Presen t illness Narrative Images from the original note were not included. Physical Therapy Evaluation Visit Patient Name: Dominique Liz Today's Date: 12/07/2024 Encounter Diagnoses Name Primary? Lumbar paraspinal muscle spasm Yes Weakness of both lower extremities Frequent falls Visit number: 1 Timed Code Treatment Minutes: 40 minutes Total Treatment Time: 60 minutes Time In: 1400 Time Out: 1500 History: Pt. Presents to PT with c/c of low back pain, LE weakness, and poor balance. Pt. Reports she fall frequently (1-3x per week) due to her legs giving out on her. Pt walks with SPC and rollator throughout her home. Pt. Does have good and bad days were she has more leg weakness and poor balance than other. Pt. Reports after her last round of PT in 2023 she was walking better and felt like her had more balance. However, she has last a lot of strength in the last couple of months and started falling a lot more. Precautions: fall risk Subjective Pain: 8/10 worst day; least 2/10 Objective: PT Evaluation (12/07/24) Lumbar ROM: grossly limited 25% in all planes Joint: hypomobility in lumbar spine grossly Strength: right LE 4-/5, left LE 4-/5 Balance: poor dynamic standing Functional: moderate use of left UE with sit to stand transfers Gait: SPC, shuffling gait, decreased stride length, slow pace. Treatment: PT evaluation (20 minutes) Education: HEP education with demonstration, Educated on Eval Findings and POC Manual Therapy: (12 minutes) prone: MFR to lumbar spine, gentle grade II to lumbar spine, Passive ROM, Joint mobilization, Soft Tissue Mobilization, Myofascial Release, Muscle Energy Technique, Neural Mobilization, Myofascial Cupping, Dry Needling, IASTM, and Scar mobilization Therapeutic Exercise: (16 minutes) exercises in grid; Strength, Endurance, Flexibility, ROM, HEP, Neural Mobilization, Power, and Core Stability Therapeutic Activity: Exercises to improve dynamic activities, functional tasks, functional mobility to return to prior activity level Gait Training: Neuromuscular re-education: Balance Training, Muscle Facilitation, Dynamic Stability, Core Stabilization, and Blood Flow Restriction Training (BFRT) Modalities: Heat, Ice, Electrical Stimulation, Ultrasound, Cervical Mechanical Traction, Lumbar Mechanical Traction, Iontophoresis, and Fluidotherapy Assessment: Pt. Has participated in 1 PT session with start of POC on 12/07/24 for chronic low back pain, LE weakness, poor balance. Pt. Will benefit from skilled PT services. Outcome Measure: in chart Short Term Goal: To be met in 2 weeks Goal 1: Pt to be instructed in home exercise program. Retirement Goals: To be met in 10 weeks [...] sign below. Date: documented in this encounter [facility] 10-06-2024 History of Presen t illness Narrative Images from the original note were not included. Yvonne Liz is a 78 y.o. female presents with chief complaint of URI (Fell 4 times within the past 2 weeks. Hit her head yesterday. Tender spot. ) HPI: HPI History of Present Illness The patient presents for evaluation of sinus infection, falls, and low blood count. She has been experiencing a persistent cough, which she attributes to a sinus infection, for the past 2 weeks. The cough is productive, yielding greenish phlegm after prolonged bouts. She reports no fever but did experience a sore throat from Wednesday to Wednesday of the previous week. Despite being prescribed Mucinex, there was no improvement in her symptoms. She then reverted to NyQuil, which she had been using for a week prior, and it provided some relief, allowing her to sleep through most of the night. She has experienced 4 falls within the past 2 weeks, 3 of which occurred last week and one yesterday. These falls are preceded by a sensation of instability in her legs, described as wobbling, which occurs after prolonged periods of sitting or standing. She reports no associated leg pain during ambulation. She suspects these symptoms may be related to her known spinal stenosis. During her most recent fall, she sustained minor injuries to her elbow and head. She was previously engaged in physical therapy, including cycling, without any reported issues. She has a long-standing history of low blood counts since childhood. ALLERGIES The patient has no known allergies. MEDICATIONS Current: Lexapro, Mucinex, NyQuil SUBJECTIVE: MEDICATIONS: Current Outpatient Medications Medication Instructions acetaminophen (TYLENOL 8 HOUR) 650 mg, Every 8 hours PRN atorvastatin (Lipitor) 10 MG tablet TAKE 1 TABLET BY MOUTH DAILY at the same time each day calcitriol (ROCALTROL) 0.25 mcg, Daily cetirizine (ZyrTEC) 10 MG tablet Take by mouth. cholecalciferol (VITAMIN D-3) 1,000 Units, Daily Cyanocobalamin (B-12 Compliance Injection) 1000 MCG/ML kit 1 mL, Injection, Every 30 days diazePAM (Valium) 5 MG tablet TAKE 1 TABLET BY MOUTH PRIOR TO PROCEDURE escitalopram (LEXAPRO) 5 mg, Oral, Daily guaiFENesin (MUCINEX) 1,200 mg, Oral, 2 times daily, Do not crush, chew, or split. levothyroxine (SYNTHROID, LEVOXYL) 75 mcg, Oral, Every morning, Take on an empty stomach. lisinopril 5 mg, Oral, Daily Meclizine HCl 25 MG chewable tablet CHEW AND SWALLOW 1 (ONE) TABLET BY MOUTH DAILY NEEDED metoprolol succinate XL (TOPROL-XL) 25 mg, Oral, Every morning omeprazole (PRILOSEC) 40 mg, Oral, Daily I have reviewed and reconciled the history and medication list with the patient today. REVIEW OF SYMPTOMS: Review of Systems OBJECTIVE: Visit Vitals BP 138/90 Pulse 88 Ht 5' 3 Wt 146 lb 3.2 oz SpO2 97% BMI 25.90 kg/m Smoking Status Never BSA 1.72 m Physical Exam Vitals and nursing note reviewed. Constitutional: Appearance: Normal appearance. HENT: Head: Normocephalic and atraumatic. Right Ear: Hearing and tympanic membrane normal. Left Ear: Hearing and tympanic membrane normal. Nose: Nasal tenderness, mucosal edema and congestion present. Right Turbinates: Swollen. Left Turbinates: Swollen. Right Sinus: Maxillary sinus tenderness present. Left Sinus: Maxillary sinus tenderness present. Cardiovascular: Rate and Rhythm: Normal rate and regular rhythm. Pulses: Normal pulses. Heart sounds: Normal heart sounds, S1 normal and S2 normal. Pulmonary: Effort: Pulmonary effort is normal. Breath sounds: Normal breath sounds and air entry. Musculoskeletal: Cervical back: Normal range of motion and neck supple. Lymphadenopathy: Cervical: No cervical adenopathy. Neurological: Mental Status: She is alert. Psychiatric: Mood and Affect: Mood normal. ASSESSMENT AND PLAN: Assessment & Plan 1. Sinus Infection. The patient's symptoms, including a persistent cough with green sputum, suggest a sinus infection. Doxycycline has been prescribed to cover both sinus and chest infections. The prescription will be sent to [facility]. 2. Falls. The patient reports multiple falls over the past two weeks, likely due to spinal stenosis causing leg weakness and wobbling. No pain is associated with the falls, but there is tenderness in the elbow and head from a recent incident. 3. Low Blood Count. The patient has a history of low white blood cell and platelet counts. A recheck of the blood count will be conducted to monitor any changes. If the counts are still low, further evaluation by a mining and quarrying machinery repairer may be considered. She has previously refused the consult, but is agreeable to repeat labs. She will consider a consult depending on the labs. Assessment/Plan Problem List Items Addressed This Visit None Visit Diagnoses Acute non-recurrent maxillary sinusitis - Primary Relevant Medications doxycycline (Vibramycin) 100 MG capsule Thrombocytopenia, unspecified (CMS/HCC) Relevant Orders CBC and differential Comprehensive metabolic panel CKD stage 3a, GFR 45-59 ml/min (CMS/HCC) Relevant Orders CBC and differential Comprehensive metabolic panel Pulmonary hypertension, unspecified (CMS/HCC) Based on echo done in 24. Stable as far as her symptoms. Other pancytopenia (CMS/HCC) documented in this encounter [facility] 09-27-2024 Telephone encount er Note Dominique called - she was in yesterday w Shilpi but is asking for an Antibiotic to be called in. She said she feels miserable . Dominique - if you could call and let her know either way, ty [phone] [facility] 09-27-2024 Miscellaneous Notes Formattin g of this note might be different from the original. Dominique called - she was in yesterday w Shilpi but is asking for an Antibiotic to be called in. She said she feels miserable . Dominique - if you could call and let her know either way, ty [phone] documented in this encounter [facility] 09-26-2024 History of Presen t illness Narrative Images from the original note were not included. Yvonne Liz is a 78 y.o. female presents with chief complaint of Cough HPI: HPI History of Present Illness The patient presents for evaluation of a cough. She reports the onset of a persistent cough since Wednesday, which has been disrupting her sleep. She is not experiencing any fevers but does report a sore throat due to postnasal drainage and occasional itchiness. The cough is nonproductive. She has been managing her symptoms with NyQuil and DayQuil, finding the latter to be more effective in providing temporary relief. She also mentions that her , who started exhibiting similar symptoms on , is currently undergoing an x-ray examination. Supplemental Information She has a history of dizziness, which has resolved following therapy sessions. She experienced a few episodes post-therapy but has been symptom-free for an extended period. She has not required meclizine recently. MEDICATIONS Current: NyQuil, DayQuil Past: meclizine SUBJECTIVE: MEDICATIONS: ALLERGIES Current Outpatient Medications Medication Instructions acetaminophen (TYLENOL 8 HOUR) 650 mg, Every 8 hours PRN atorvastatin (Lipitor) 10 MG tablet TAKE 1 TABLET BY MOUTH DAILY at the same time each day calcitriol (ROCALTROL) 0.25 mcg, Daily cetirizine (ZyrTEC) [...] Daily Meclizine HCl 25 MG chewable tablet CHEW AND SWALLOW 1 (ONE) TABLET BY MOUTH DAILY NEEDED metoprolol succinate XL (TOPROL-XL) 25 mg, Oral, Every morning omeprazole (PRILOSEC) 40 mg, Oral, Daily traMADol (ULTRAM) 50 mg, 2 times daily PRN Allergies Allergen Reactions Seasonal Ic [Octacosanol] PAST MEDICAL HISTORY: SOCIAL HISTORY SURGICAL HISTORY: Past Medical History: Diagnosis Date Acute gout of right knee, unspecified cause Cramp in lower leg associated with rest 12/01/2018 Decreased platelet count ([facility]) 01/01/2023 Essential hypertension ([facility]) 10/15/2016 Gastro-esophageal reflux disease without esophagitis 11/24/2017 GERD (gastroesophageal reflux disease) Hypertension ([facility]) Hyperthyroidism ([facility]) Hypothyroid ([facility]) Hypothyroidism, unspecified ([facility]) 05/11/2016 Lumbar and sacral arthritis 01/01/2023 Mixed hyperlipidemia ([facility]) 10/15/2016 Nocturnal leg cramps 01/01/2023 Orthostatic hypotension 08/24/2023 RLS (restless legs syndrome) 12/01/2018 Scapular dyskinesis 12/07/2019 Stress at home 09/18/2016 Vitamin D deficiency 12/02/2018 Social History Tobacco Use Smoking status: Never Smokeless tobacco: Never Substance Use Topics Alcohol use: Not Currently Comment: Caffeine intake : 1-2 cups/day coffee Drug use: Never Past Surgical History: Procedure Laterality Date HIP SURGERY Right 10/07/2023 Fx fixed @ [facility] PARTIAL HYSTERECTOMY 1982 REVIEW OF SYMPTOMS: Review of Systems Constitutional: Positive for fatigue. Negative for fever. HENT: Positive for congestion, rhinorrhea, sinus pain and sore throat. Respiratory: Positive for cough, shortness of breath and wheezing. Cardiovascular: Negative for chest pain, palpitations and leg swelling. Gastrointestinal: Negative for abdominal pain. OBJECTIVE: Vitals: 09/26/24 1101 Temp: 98.5 F Physical Exam Vitals and nursing note reviewed. Constitutional: Appearance: Normal appearance. HENT: Head: Normocephalic and atraumatic. Right Ear: Tympanic membrane normal. Left Ear: Tympanic membrane normal. Nose: Congestion present. Right Sinus: Frontal sinus tenderness present. Left Sinus: Frontal sinus tenderness present. Mouth/Throat: Mouth: Mucous membranes are moist. Pharynx: Posterior oropharyngeal erythema present. Tonsils: No tonsillar exudate. Cardiovascular: Rate and Rhythm: Normal rate and regular rhythm. Pulses: Normal pulses. Heart sounds: Normal heart sounds. Pulmonary: Effort: Pulmonary effort is normal. Breath sounds: Normal breath sounds. Musculoskeletal: Cervical back: Normal range of motion and neck supple. Skin: General: Skin is warm and dry. Capillary Refill: Capillary refill takes less than 2 seconds. Neurological: Mental Status: She is alert and oriented to person, place, and time. ASSESSMENT AND PLAN: Assessment/Plan Diagnoses and all orders for this visit: Viral URI with cough - guaiFENesin (Mucinex) 600 MG 12 hr tablet; Take 2 tablets (1,200 mg) by mouth in the morning and 2 tablets (1,200 mg) before bedtime. Do not crush, chew, or split.. Acute cough - STATUS COVID-19/FLU Nasal congestion - STATUS COVID-19/FLU Assessment & Plan 1. Cough. Her symptoms suggest a viral etiology. COVID-19 and influenza tests have returned negative results. She is advised to maintain hydration, ensure adequate rest, and use [id number] analgesics such as Tylenol or Motrin as needed. She may continue with DayQuil and is also recommended to consider Mucinex. A prescription for Mucinex will be sent to [facility]. If there is no improvement in her condition by Wednesday, she should inform us. No follow-ups on file. documented in this encounter [facility] 09-04-2024 Telephone encount er Note Refills sent. [facility] 09-04-2024 Miscellaneous Notes Formattin g of this note might be different from the original. Refills sent. documented in this encounter [facility] 09-04-2024 Telephone encount er Note Refills sent. [facility] 09-04-2024 Miscellaneous Notes Formattin g of this note might be different from the original. Refills sent. documented in this encounter [facility] 08-03-2024 History of Presen t illness Narrative [...] awhile and continue with home program. Pain: 08/18 Objective: PT Evaluation (06/05/2024) LUMBAR SPINE AROM: [...] instructed in home exercise program. - met Back Sewer Goals: To be met in 10 weeks [...] met DISCHARGE PT documented in this encounter [facility] 07-31-2024 Telephone encount er Note Refills sent. [facility] 07-31-2024 Miscellaneous Notes Formattin g of this note might be different from the original. Refills sent. documented in this encounter [facility] 07-28-2024 History of Presen t illness Narrative [...] out. Pt states last fall was last Thursday in her home. Had her 4WW with [...] to be instructed in home exercise program. Retirement Goals: To be met in 10 weeks [...] sign below. Date: documented in this encounter [facility] 07-14-2024 History of Presen t illness Narrative [...] time she fell, she was trying to pickle cutter a toy from the floor, was not [...] to be instructed in home exercise program. Back Sewer Goals: To be met in 10 weeks [...] sign below. Date: documented in this encounter [facility] 06-27-2024 History of Presen t illness Narrative [...] to be instructed in home exercise program. Back Sewer Goals: To be met in 10 weeks [...] sign below. Date: documented in this encounter [facility] 06-23-2024 History of Presen t illness Narrative [...] to be instructed in home exercise program. Back Sewer Goals: To be met in 10 weeks [...] sign below. Date: documented in this encounter [facility] 06-22-2024 History of Presen t illness Narrative [...] new medication will be sent to [facility] and should be taken once daily with [...] CBC and differential documented in this encounter [facility] 06-20-2024 History of Presen t illness Narrative [...] to be instructed in home exercise program. Back Sewer Goals: To be met in 10 weeks [...] 1:09 PM EST documented in this encounter [facility] 06-13-2024 Telephone encount er Note Approving, but needs appt for additional refills. [facility] 06-13-2024 Miscellaneous Notes Formattin g of this note might be different from the original. Approving, but needs appt for additional refills. 180/70 sometimes 160/70 definitely happening more frequently than family would like. Scheduling an appt for the next wk Patient is calling for refill of metoprolol to [facility] [place]. When her b/p is high do you want her to take more of this medication? Please advise pt. Thank you. documented in this encounter [facility] 06-13-2024 Telephone encount er Note 180/70 sometimes 160/70 definitely happening more frequently than family would like. Scheduling an appt for the next wk [facility] 06-13-2024 Telephone encount er Note Patient is calling for refill of metoprolol to [facility] [place]. When her b/p is high do you want her to take more of this medication? Please advise pt. Thank you. [facility] 06-07-2024 Telephone encount er Note Nanette Fox's daughter Kellie is having a lot of pain and needing to get in terry, *I can call if needed , ty [facility] [phone] [facility] 06-07-2024 Miscellaneous Notes Formattin g of this note might be different from the original. Nanette Fox's daughter called<Dentist office needs a verbal ok that Dominique can get her cracked tooth /filling repaired . Due to having a hip replacement ( ibelieve in october) She is having a lot of pain and needing to get in ter[place], *I can call if needed , ty [facility] [phone] documented in this encounter [facility] 05-29-2024 History of Presen t illness Narrative [...] or 3 Meclizine yesterday, none today. Precautions: [place], falls Subjective: Pt states she continues with [...] instructed in home exercise program. - MET Retirement Goals: To be met in 10 weeks [...] PT this date. documented in this encounter [facility] 05-18-2024 Telephone encount er Note Patient daughter- Nanette is calling today re: referral. Nanette called PT and they can address one issue at a time. Is the vertigo more important that the spinal stenosis and arthritis at this time? Please advise Nanette which one you would like addressed first so she can call and get this scheduled. Nanette [phone]. Thank you. [facility] 05-18-2024 Miscellaneous Notes Formattin g of this [...] can call and get this scheduled. Nanette [phone]. Thank you. documented in this encounter [facility] 05-18-2024 History of Presen t illness Narrative [...] associated with rest 12/01/2018 Decreased platelet count ([facility]) 01/01/2023 Essential hypertension ([facility]) 10/15/2016 Gastro-esophageal reflux disease without esophagitis 11/24/2017 GERD (gastroesophageal reflux disease) Hypertension ([facility]) Hyperthyroidism ([facility]) Hypothyroid ([facility]) Hypothyroidism, unspecified ([facility]) 05/11/2016 Lumbar and sacral arthritis 01/01/2023 Mixed hyperlipidemia ([facility]) 10/15/2016 Nocturnal leg cramps 01/01/2023 Orthostatic hypotension [...] Weights: Wt Readings from Last 3 Encounters: 10/10/24 142 lb 6.4 oz 03/14/24 143 lb [...] Next scheduled follow-up. documented in this encounter [facility] 05-10-2023 Evaluation note Encounter Date Diagnosis Assessment [...] up in 1 week for further evaluation. [employer] Other 08-29-2023 Evaluation note* Encounter Date Diagnosis [...] (ICD-10 - G89.29) Proceed with treatment plan. [employer] Other 08-15-2023 Evaluation note* Encounter Date Diagnosis [...] (ICD-10 - G89.29) Follow up as needed [employer] Other 07-31-2023 Evaluation note* Encounter Date Diagnosis [...] negative findings were considered in medical decision-making. [facility] [facility] Other Evaluation noteNo [facility] Other Evaluation noteNo assessment information available [facility] Work Phone: Evaluation note* Diagnosis Gastroesophageal reflux disease without esophagitis Esophageal reflux [facility] Diagnosis Vertigo- Primary Dizziness and [...] Unspecified hypothyroidism [facility] Diagnosis B12 deficiency- Primary Essential hypertension (CMS/HCC) Unspecified essential hypertension Acquired hypothyroidism (CMS/HCC) Unspecified hypothyroidism Decreased platelet count (CMS/HCC) Unspecified thrombocytopenia Mixed hyperlipidemia (CMS/HCC) Mixed hyperlipidemia Vertigo Dizziness and giddiness Closed fracture of neck of right femur with routine healing, subsequent encounter Atherosclerosis of aorta (CMS/HCC) Atherosclerosis of aorta Gastroesophageal reflux disease without esophagitis Esophageal reflux [facility] Diagnosis B12 deficiency- Primary Essential hypertension (CMS/HCC) Unspecified essential hypertension Acquired hypothyroidism (CMS/HCC) Unspecified hypothyroidism Decreased platelet count (CMS/HCC) Unspecified thrombocytopenia Mixed hyperlipidemia (CMS/HCC) Mixed hyperlipidemia Vertigo Dizziness and giddiness Closed fracture of neck of right femur with routine healing, subsequent encounter Atherosclerosis of aorta (CMS/HCC) Atherosclerosis of aorta Mixed hyperlipidemia (CMS/HCC) Mixed hyperlipidemia Essential hypertension (CMS/HCC) Unspecified essential hypertension [facility] Diagnosis B12 deficiency- Primary Essential hypertension (CMS/HCC) Unspecified essential hypertension Acquired hypothyroidism (CMS/HCC) Unspecified hypothyroidism Decreased platelet count (CMS/HCC) Unspecified thrombocytopenia Mixed hyperlipidemia (CMS/HCC) Mixed hyperlipidemia Vertigo Dizziness and giddiness Closed fracture of neck of right femur with routine healing, subsequent encounter Atherosclerosis of aorta (CMS/HCC) Atherosclerosis of aorta Viral URI with cough- Primary Acute cough Nasal congestion Other diseases of nasal cavity and sinuses [facility] Diagnosis B12 deficiency- Primary Essential hypertension (CMS/HCC) Unspecified essential hypertension Acquired hypothyroidism (CMS/HCC) Unspecified hypothyroidism Decreased platelet count (CMS/HCC) Unspecified thrombocytopenia Mixed hyperlipidemia (CMS/HCC) Mixed hyperlipidemia Vertigo Dizziness and giddiness Closed fracture of neck of right femur with routine healing, subsequent encounter Atherosclerosis of aorta (CMS/HCC) Atherosclerosis of aorta Acute non-recurrent maxillary sinusitis- Primary Thrombocytopenia, unspecified (CMS/HCC) Thrombocytopenia, unspecified CKD stage 3a, GFR 45-59 ml/min (CMS/HCC) Pulmonary hypertension, unspecified (CMS/HCC) Other pancytopenia (CMS/HCC) Other pancytopenia [facility] Diagnosis B12 deficiency- Primary Essential hypertension (CMS/HCC) Unspecified essential hypertension Acquired hypothyroidism (CMS/HCC) Unspecified hypothyroidism Decreased platelet count (CMS/HCC) Unspecified thrombocytopenia Mixed hyperlipidemia (CMS/HCC) Mixed hyperlipidemia Vertigo Dizziness and giddiness Closed fracture of neck of right femur with routine healing, subsequent encounter Atherosclerosis of aorta (CMS/HCC) Atherosclerosis of aorta Acquired hypothyroidism (CMS/HCC) Unspecified hypothyroidism [facility] Diagnosis B12 deficiency- Primary Essential hypertension (CMS/HCC) Unspecified essential hypertension Acquired hypothyroidism (CMS/HCC) Unspecified hypothyroidism Decreased platelet count (CMS/HCC) Unspecified thrombocytopenia Mixed hyperlipidemia (CMS/HCC) Mixed hyperlipidemia Vertigo Dizziness and giddiness Closed fracture of neck of right femur with routine healing, subsequent encounter Atherosclerosis of aorta (CMS/HCC) Atherosclerosis of aorta Lumbar paraspinal muscle spasm- Primary Other symptoms referable to back Weakness of both lower extremities Frequent falls [facility] Diagnosis B12 deficiency- Primary Essential hypertension (CMS/HCC) Unspecified essential hypertension Acquired hypothyroidism (CMS/HCC) Unspecified hypothyroidism Decreased platelet count (CMS/HCC) Unspecified thrombocytopenia Mixed hyperlipidemia (CMS/HCC) Mixed hyperlipidemia Vertigo Dizziness and giddiness Closed fracture of neck of right femur with routine healing, subsequent encounter Atherosclerosis of aorta (CMS/HCC) Atherosclerosis of aorta Lumbar paraspinal muscle spasm- Primary Other symptoms referable to back Weakness of both lower extremities Frequent falls [facility] [...] Atherosclerosis of aorta (CMS/HCC) Atherosclerosis of aorta Lumbar paraspinal muscle spasm- Primary Other symptoms referable to back Weakness of both lower extremities Frequent falls [facility]* Diagnosis B12 deficiency- Primary Essential hypertension (CMS/HCC) Unspecified essential hypertension Acquired hypothyroidism (CMS/HCC) Unspecified hypothyroidism Decreased platelet count (CMS/HCC) Unspecified thrombocytopenia Mixed hyperlipidemia (CMS/HCC) Mixed hyperlipidemia Vertigo Dizziness and giddiness Closed fracture of neck of right femur with routine healing, subsequent encounter Atherosclerosis of aorta (CMS/HCC) Atherosclerosis of aorta Gastroesophageal reflux disease without esophagitis Esophageal reflux Mixed hyperlipidemia (CMS/HCC) Mixed hyperlipidemia Essential hypertension (CMS/HCC) Unspecified essential hypertension Acquired hypothyroidism (CMS/HCC) Unspecified hypothyroidism documented [facility] Diagnosis B12 deficiency- Primary Essential hypertension (CMS/HCC) Unspecified essential hypertension Acquired hypothyroidism (CMS/HCC) Unspecified hypothyroidism Decreased platelet count (CMS/HCC) Unspecified thrombocytopenia Mixed hyperlipidemia (CMS/HCC) Mixed hyperlipidemia Vertigo Dizziness and giddiness Closed fracture of neck of right femur with routine healing, subsequent encounter Atherosclerosis of aorta (CMS/HCC) Atherosclerosis of aorta Lumbar paraspinal muscle spasm- Primary Other symptoms referable to back Weakness of both lower extremities Frequent falls documented [facility] this [facility]* Diagnosis B12 deficiency- Primary Essential hypertension (CMS/HCC) Unspecified essential hypertension Acquired hypothyroidism (CMS/HCC) Unspecified hypothyroidism Decreased platelet count (CMS/HCC) Unspecified thrombocytopenia Mixed hyperlipidemia (CMS/HCC) Mixed hyperlipidemia Vertigo Dizziness and giddiness Closed fracture of neck of right femur with routine healing, subsequent encounter Atherosclerosis of aorta (CMS/HCC) Atherosclerosis of aorta Peripheral polyneuropathy- Primary Wellness examination Herpes simplex Herpes simplex without mention of complication Essential hypertension (CMS/HCC) Unspecified essential hypertension Mixed hyperlipidemia (CMS/HCC) Mixed hyperlipidemia Acquired hypothyroidism (CMS/HCC) Unspecified hypothyroidism Spinal stenosis of lumbar region, unspecified whether neurogenic claudication present Lumbar paraspinal muscle spasm- Primary Other symptoms referable to back Weakness of both lower extremities Frequent falls documented [facility] Diagnosis B12 deficiency- Primary Essential hypertension (CMS/HCC) Unspecified essential hypertension Acquired hypothyroidism (CMS/HCC) Unspecified hypothyroidism Decreased platelet count (CMS/HCC) Unspecified thrombocytopenia Mixed hyperlipidemia (CMS/HCC) Mixed hyperlipidemia Vertigo Dizziness and giddiness Closed fracture of neck of right femur with routine healing, subsequent encounter Atherosclerosis of aorta (CMS/HCC) Atherosclerosis of aorta Peripheral polyneuropathy- Primary Wellness examination Herpes simplex Herpes simplex without mention of complication Essential hypertension (CMS/HCC) Unspecified essential hypertension Mixed hyperlipidemia (CMS/HCC) Mixed hyperlipidemia Acquired hypothyroidism (CMS/HCC) Unspecified hypothyroidism Spinal stenosis of lumbar region, unspecified whether neurogenic claudication present Lumbar paraspinal muscle spasm- Primary Other symptoms referable to back Weakness of both lower extremities [facility] N[facility]ative - Reported* Type Description Date Medical History hypercholestolemia Medical History stenosis [employer] Other Reason for visit Narrative* Rehabilitation - Outpatient (Routine) - Authorized Specialty Diagnoses / Procedures Referred By Contac t Referred To Contact Physical Therapy Diagnoses Vertigo Spinal stenosis, unspecified spinal region Lumbar and sacral arthritis Procedures [facility] OFFICE/OUTPATIENT NEW HIGH MDM 60 MINUTES Divina Castellano, CUSTOMS ENTRY CLERK [address] [place] [address] Phone: tel: fax: Alana Lopez, LUIS FERNANDO Referral ID Status Reason Start Date Expiration Date Visits Requested Visits Authorized [id number] Authorized Specialty Services Required 4 11/14/2024 99 99 [facility] N[facility]* Rehabilitation - Outpatient (Routine) - Authorized Specialty Diagnoses / Procedures Referred By Contac t Referred To Contact Physical Therapy Diagnoses Spinal stenosis, unspecified spinal region Lumbar and sacral arthritis Procedures UT OFFICE/OUTPATIENT NEW HIGH MDM 60 MINUTES Divina Castellano, CUSTOMS ENTRY CLERK [address] [place] [address] Phone: tel: fax: Alana Lopez, PT Referral ID Status Reason Start Date Expiration Date Visits Requested Visits Authorized [id number] Authorized Specialty Services Required 4 05/14/2025 1 90 [facility]* Rehabilitation - Outpatient (Routine) - Authorized Specialty Diagnoses / Procedures Referred By Contac t Referred To Contact Physical Therapy Diagnoses Spinal stenosis, unspecified spinal region Lumbar and sacral arthritis Procedures UT OFFICE/OUTPATIENT NEW HIGH MDM 60 MINUTES Divina Castellano, CUSTOMS ENTRY CLERK [address] [place] [address] Phone: tel: fax: Alana Lopez, LUIS FERNANDO Referral ID Status Reason Start Date Expiration Date Visits Requested Visits Authorized [id number] Authorized Specialty Services Required 08/08/2024 1 90 [facility] N[facility]* Rehabilitation - Outpatient (Routine) - Closed Specialty Diagnoses / Procedures Referred By Contac t Referred To Contact Physical Therapy Diagnoses Spinal stenosis, unspecified spinal region Lumbar and sacral arthritis Procedures [facility] OFFICE/OUTPATIENT NEW HIGH MDM 60 MINUTES Divina Castellano, CUSTOMS ENTRY CLERK [address] [place] [address] Phone: tel: fax: Alana Lopez, LUIS FERNANDO Referral ID Status Reason Start Date Expiration Date V isits Requested Visits Authorized [id number] Closed Specialty Services Required 06/05/2024 08/08/2024 1 90 [facility]* Rehabilitation - Outpatient (Routine) - Authorized Specialty Diagnoses / Procedures Referred By Contac t Referred To Contact Physical Therapy Diagnoses Spinal stenosis, lumbar region with neurogenic claudication Procedures UT PHYSICAL THERAPY EVALUATION LOW COMPLEX 20 MINS [facility] OFFICE/OUTPATIENT NEW HIGH MDM 60 MINUTES Kulwant García MD [address] [place] [address] Phone: tel: fax: Shiva Agarwal, PT [address] [address] Phone: tel: fax: Referral ID Status Reason Start Date Expiration Date V isits Requested Visits Authorized [id number] Authorized 12/01/2024 05/30/2025 99 99 [facility] N[facility]* Rehabilitation - Outpatient (Routine) - Authorized Specialty Diagnoses / Procedures Referred By Contac t Referred To Contact Physical Therapy Diagnoses Spinal stenosis, lumbar region with neurogenic claudication Procedures [place] PHYSICAL THERAPY EVALUATION LOW COMPLEX 20 MINS [place] OFFICE/OUTPATIENT NEW HIGH MDM 60 MINUTES Kulwant García MD [address] [place] [address] Phone: tel: fax: Shiva Agarwal, PT [address] [address] Phone: tel: fax: Referral ID Status Reason Start Date Expiration Date V isits Requested Visits Authorized [id number] Authorized 12/01/2024 08/08/2025 99 99 [facility] Summary Purpose Family History No Family History Records FoundNo Family History Records FoundNo Family History Records FoundNo Family History Records Found Advance Directives No Advanced Directives Records Found Advance Directive Response Recorded Date/ Time Advance Directives No May 10, 2023 11:40am Chief Complaint and Reason for Visit Chief Complaint M25.551 Reason for Referral Specialty Diagnoses / Procedures Referred By Suni conde Referred To Contact Physical Therapy Diagnoses Vertigo Spinal stenosis, unspecified spinal region Lumbar and sacral arthritis Procedures [place] OFFICE/OUTPATIENT [facility] 60 MINUTES Divina Castellano, CUSTOMS ENTRY CLERK [address] [place] [address] Alana Lopez PT Referral ID Status Reason Start Date Expiration Date Visits Requested Visits Authorized [id number] Authorized Specialty Services Required 11/14/2024 99 99 Additional Source Comments INFORMATION SOURCE (unrecogn ized section and content) DATE CREATED AUTHOR 12/11/2022 [facility] dical Specialist DATE CREATED AUTHOR AUTHOR'S ORGANIZ ATION 10/19/2023 [facility] DATE CREATED AUTHOR AUTHOR'S ORGANIZ ATION 05/24/2024 [facility] DATE CREATED AUTHOR AUTHOR'S ORGANIZ ATION 01/06/2025 [facility] Me dical Specialists EPIC REASON FOR VISIT (unrecogniz ed section and content) Reason Onset Date Comments Vertigo 05/18/2024 Called to offer PT Eval for vertigo w/ Jaquan Lopez PT on 05/23 @ 8:00 am; requested call back terry. Call Back 05/18/2024 She contacted an d scheduled per offer 05/23 wCornelius Lopez PT. Reason Comments Vertigo Reason Comments Med Refill Reason Comments Cough Reason Comments URI Fell 4 times within the past 2 weeks. Hit her head yesterday. Tender spot. Reason Comments Med Change Request Care Teams (unrecognized sec tion and content) Team Status: Active Member Role Status Dates Roslyn Briscoe , CUSTOMS ENTRY CLERK-C Primary Care Provider Activ e Team Status: Inactive Member Role Status Dates Roslyn Briscoe CUSTOMS ENTRY CLERK-C Primary Care Provider Telma Holland MD Attending Provider Active Stone Paver Relationship Specialty Start Date End Date Cynthia Leong MD [address] [place] [address] PCP - [employer] 08/09/20 Cynthia Leong MD [address] [place] [address] PCP - General Family Medicine 01/18/24 Libby Ward NP [address] [place] [address] Nurse Practitioner Family Medicine 02/05/23 Stone Paver Relationship Specialty Start Date End Date Cynthia Leong MD [address] [place] [address] PCP - [employer] 08/09/20 Cynthia Leong MD [address] [place] [address] PCP - General Family Medicine 01/18/24 Libby Ward NP [address] [place] [address] Nurse Practitioner Family Medicine 02/05/23 Stone Paver Relationship Specialty Start Date End Date Cynthia Leong MD [address] [place] [address] PCP - [employer] 08/09/20 Cynthia Leong MD [address] [place] [address] PCP - General Family Medicine 01/18/24 Libby Ward NP [address] [place] [address] Nurse Practitioner Family Medicine 02/05/23 Stone Paver Relationship Specialty Start Date End Date Cynthia Leong MD [address] [place] [address] PCP - [employer] 08/09/20 Cynthia Leong MD [address] [place] [address] PCP - General Family Medicine 01/18/24 Libby Ward NP [address] [place] [address] Nurse Practitioner Family Medicine 02/05/23 Stone Paver Relationship Specialty Start Date End Date Cynthia Leong MD [address] [place] [address] PCP - [employer] 08/09/20 Cynthia Leong MD [address] [place] [address] PCP - General Family Medicine 01/18/24 Libby Ward NP [address] [place] [address] Nurse Practitioner Family Medicine 02/05/23 Stone Paver Relationship Specialty Start Date End Date Cynthia Leong MD [address] [place] [address] PCP - [employer] 08/09/20 Cynthia Leong MD [address] [place] [address] PCP - General Family Medicine 01/18/24 Libby Ward NP [address] [place] [address] Nurse Practitioner Family Medicine 02/05/23 Stone Paver Relationship Specialty Start Date End Date Cynthia Leong MD [address] [place] [address] PCP - [employer] 08/09/20 Cynthia Leong MD [address] [place] [address] PCP - General Family Medicine 01/18/24 Libby Ward NP [address] [place] [address] Nurse Practitioner Family Medicine 02/05/23 Stone Paver Relationship Specialty Start Date End Date Cynthia Leong MD [address] [place] [address] PCP - [employer] 08/09/20 Cynthia Leong MD [address] [place] [address] PCP - General Family Medicine 01/18/24 Libby Ward NP [address] [place] [address] Nurse Practitioner Family Medicine 02/05/23 Stone Paver Relationship Specialty Start Date End Date Cynthia Leong MD [address] [place] [address] PCP - [employer] 08/09/20 Cynthia eLong MD [address] [place] [address] PCP - General Family Medicine 01/18/24 Libby Ward NP [address] [place] [address] Nurse Practitioner Family Medicine 02/05/23 Stone Paver Relationship Specialty Start Date End Date Cynthia Leong MD [address] [place] [address] PCP - [employer] 08/09/20 Cynthia Leong MD [address] [place] [address] PCP - General Family Medicine 01/18/24 Libby Ward NP [address] [place] [address] Nurse Practitioner Family Medicine 02/05/23 Stone Paver Relationship Specialty Start Date End Date Cynthia Leong MD [address] [place] [address] PCP - [employer] 08/09/20 Cynthia Leong MD [address] [place] [address] PCP - General Family Medicine 01/18/24 Libby Ward NP [address] [place] [address] Nurse Practitioner Family Medicine 02/05/23 Stone Paver Relationship Specialty Start Date End Date Cynthia Leong MD [address] [place] [address] PCP - [employer] 08/09/20 Cynthia Leong MD [address] [place] [address] PCP - General Family Medicine 01/18/24 Libby Ward NP [address] [place] [address] Nurse Practitioner Family Medicine 02/05/23 Stone Paver Relationship Specialty Start Date End Date Cynthia Leong MD [address] [place] [address] PCP - [employer] 08/09/20 Cynthia Leong MD [address] [place] [address] PCP - General Family Medicine 01/18/24 Libby Ward NP [address] [place] [address] Nurse Practitioner Family Medicine 02/05/23 Stone Paver Relationship Specialty Start Date End Date Cynthia Leong MD [address] [place] [address] PCP - [employer] 08/09/20 Cynthia Leong MD [address] [place] [address] PCP - General Family Medicine 01/18/24 Libby Ward, SANJEEV [address] [place] [address] Nurse Practitioner Family Medicine 02/05/23 Stone Paver Relationship Specialty Start Date End Date Cynthia Leong MD [address] [place] [address] PCP - [employer] 08/09/20 Cynthia Leong MD [address] [place] [address] PCP - General Family Medicine 01/18/24 Libby Ward NP [address] [place] [address] Nurse Practitioner Family Medicine 02/05/23 Stone Paver Relationship Specialty Start Date End Date Cynthia Leong MD [address] [place] [address] PCP - [employer] 08/09/20 Cynthia Leong MD [address] [place] [address] PCP - General Family Medicine 01/18/24 Libby Ward NP [address] [place] [address] Nurse Practitioner Family Medicine 02/05/23 Stone Paver Relationship Specialty Start Date End Date Cynthia Leong MD [address] [place] [address] PCP - [employer] 08/09/20 Cynthia Leong MD [address] [place] [address] PCP - General Family Medicine 01/18/24 Libby Ward NP [address] [place] [address] Nurse Practitioner Family Medicine 02/05/23 Stone Paver Relationship Specialty Start Date End Date Cynthia Leong MD [address] [place] [address] PCP - [employer] 08/09/20 Cynthia Lenog MD [address] [place] [address] PCP - General Family Medicine 01/18/24 Libby Ward NP [address] [place] [address] Nurse Practitioner Family Medicine 02/05/23 Stone Paver Relationship Specialty Start Date End Date Cynthia Leong MD [address] [place] [address] PCP - [employer] 08/09/20 Cynthia Leong MD [address] [place] [address] PCP - General Family Medicine 01/18/24 Libby Ward NP [address] [place] [address] Nurse Practitioner Family Medicine 02/05/23 Stone Paver Relationship Specialty Start Date End Date Cynthia Leong MD [address] [place] [address] PCP - [employer] 08/09/20 Cynthia Leong MD [address] [place] [address] PCP - General Family Medicine 01/18/24 Libby Ward NP [address] [place] [address] Nurse Practitioner Family Medicine 02/05/23 Stone Paver Relationship Specialty Start Date End Date Cynthia Leong MD [address] [place] [address] PCP - [employer] 08/09/20 Cynthia Leong MD [address] [place] [address] PCP - General Family Medicine 01/18/24 Libby Ward NP [address] [place] [address] Nurse Practitioner Family Medicine 02/05/23 Stone Paver Relationship Specialty Start Date End Date Cynthia Leong MD [address] [place] [address] PCP - [employer] 08/09/20 Cynthia Leong MD [address] [place] [address] PCP - General Family Medicine 01/18/24 Libby Ward NP [address] [place] [address] Nurse Practitioner Family Medicine 02/05/23 Stone Paver Relationship Specialty Start Date End Date Cynthia Leong MD [address] [place] [address] PCP - [employer] 08/09/20 Cynthia Leong MD [address] [place] [address] PCP - General Family Medicine 01/18/24 Libby Ward NP [address] [place] [address] Nurse Practitioner Family Medicine 02/05/23 Stone Paver Relationship Specialty Start Date End Date Cynthia Leong MD [address] [place] [address] PCP - [employer] 08/09/20 Cynthia Leong MD [address] [place] [address] PCP - General Family Medicine 01/18/24 Libby Ward NP [address] [place] [address] Nurse Practitioner Family Medicine 02/05/23 Stone Paver Relationship Specialty Start Date End Date Cynthia Leong MD [address] [place] [address] PCP - [employer] 08/09/20 Cynthia Leong MD [address] [place] [address] PCP - General Family Medicine 01/18/24 Libby Ward NP [address] [place] [address] Nurse Practitioner Family Medicine 02/05/23 Stone Paver Relationship Specialty Start Date End Date Cynthia Leong MD [address] [place] [address] PCP - [employer] 08/09/20 Cynthia Leong MD [address] [place] [address] PCP - General Family Medicine 01/18/24 Libby Ward NP [address] [place] [address] Nurse Practitioner Family Medicine 02/05/23 Stone Paver Relationship Specialty Start Date End Date Cynthia Leong MD [address] [place] [address] PCP - [employer] 08/09/20 Cynthia Leong MD [address] [place] [address] PCP - General Family Medicine 01/18/24 Libby Ward NP [address] [place] [address] Nurse Practitioner Family Medicine 02/05/23 Goals (unrecognized [...] BE BASED ON THE PRIMARY CLINICAL RECORDS. [facility]. provides no warranty or guarantee of the accuracy or completeness of information in this document.
--- NOTE | 2025-01-07 09:32 | CT_ITS ---
The [address] [address] Patient Name: DEXTER MCCARTHY MRN: [id number] date: 1945 Sex: F Assigned Patient Location: ER Current Patient Location: ER Accession/Order Number: [id number] Exam Date: 01/07/2025 10:13 Report Date: 01/07/2025 10:20 At the request of: EMILY HEATH MD Procedure: CT cervical spine wo con Unenhanced head CT TECHNIQUE: Contiguous axial imaging of the head. The CT exam was performed using one or more the following dose reduction techniques: Automated exposure control, adjustment of the MA and/or Kv according to patient size, or use of the iterative reconstruction technique. COMPARISON: 10/09/2023 HISTORY: Trauma. Fell. Head injury. VENTRICLES: Within normal limits ATROPHY: Similar atrophy BRAIN PARENCHYMA: Decreased density of the white matter is most consistent with chronic small vessel disease. HEMORRHAGE: None HERNIATION: No mass effect or herniation INFARCTION: No recent vascular distribution infarction is seen. EXTRA-AXIAL FLUID COLLECTIONS None MIDBRAIN: Unremarkable OMAR: Unremarkable MEDULLA: Unremarkable SINUSES: Unremarkable ORBITS: Grossly unremarkable MASTOIDS: Unremarkable BONY STRUCTURES Intact ADDITIONAL FINDINGS: Left frontal scalp hematoma. Atherosclerosis of carotid siphons and V4 segments CT/CT head/brain wo con IMPRESSION: No acute findings. CT Cervical Spine withoutcontrast TECHNIQUE: Axial imaging with 2-D and 3-D reconstruction. The CT exam was performed using one or more the following dose reduction techniques: Automated exposure control, adjustment of the MA and/or Kv according to patient size, or use of the iterative reconstruction technique. COMPARISON: 10/07/2023 HISTORY: As above POST SURGERY CHANGES: None BONY ALIGNMENT: Similar alignment with mild degenerative listhesis BONY SPINAL CANAL: Patent central bony canal FRACTURE: None BONY LESIONS: None SOFT TISSUES: Unremarkable DEGENERATIVE CHANGES: Spondylosis greatest at the C4-5 level. Extensive facet degeneration. LUNG APICES: Unremarkable ADDITIONAL FINDINGS: IMPRESSION: No acute process Impression dictated by: Nick Stokes M.D. 01/07/2025 10:20 AM Dictation Location: [place] [address] Electronically authenticated by: [id number] Y Date: 01/07/2025 10:20
--- NOTE | 2025-01-07 09:32 | XR_ITS ---
[address] [address] Patient Name: DEXTER MCCARTHY MRN: [id number] date: 1945 Sex: F Assigned Patient Location: ER Current Patient Location: ER Accession/Order Number: [id number] Exam Date: 01/07/2025 10:10 Report Date: 01/07/2025 10:13 At the request of: EMILY HEATH MD Procedure: XR forearm LT 2V 3 views left wrist plain film COMPARISON: None HISTORY: Left hand, forearm and wrist injury ACUTE FINDINGS: Nondisplaced ulnar styloid fracture. Nondisplaced distal radius fracture. DEGENERATIVE CHANGE: Mild SOFT TISSUE FINDINGS: Atherosclerosis JOINT EFFUSION: None POSTOP CHANGES: None BONE MINERALIZATION: Adequate XR/XR forearm LT 2V IMPRESSION: Nondisplaced distal radius fracture and ulnar styloid fracture. 2 views left forearm Fractures of distal radius and ulnar styloid redemonstrated without additional fracture identified. Adequate bony alignment. Atherosclerosis. IMPRESSION: No additional fracture 3 views left hand No acute displaced fracture of left hand. Degenerative change. IMPRESSION: No additional left hand fracture. Impression dictated by: Nick Stokes M.D. 01/07/2025 10:13 AM Dictation Location: [facility]PITALleemail Electronically authenticated by: [id number] Y Date: 01/07/2025 10:13
--- NOTE | 2025-01-07 09:32 | XR_ITS ---
The [address] [address] Patient Name: DEXTER MCCARTHY MRN: [id number] date: 1945 Sex: F Assigned Patient Location: ER Current Patient Location: ER Accession/Order Number: [id number] Exam Date: 01/07/2025 10:10 Report Date: 01/07/2025 10:13 At the request of: EMILY HEATH MD Procedure: XR forearm LT 2V 3 views left wrist plain film COMPARISON: None HISTORY: Left hand, forearm and wrist injury ACUTE FINDINGS: Nondisplaced ulnar styloid fracture. Nondisplaced distal radius fracture. DEGENERATIVE CHANGE: Mild SOFT TISSUE FINDINGS: Atherosclerosis JOINT EFFUSION: None POSTOP CHANGES: None BONE MINERALIZATION: Adequate XR/XR hand LT min 3V IMPRESSION: Nondisplaced distal radius fracture and ulnar styloid fracture. 2 views left forearm Fractures of distal radius and ulnar styloid redemonstrated without additional fracture identified. Adequate bony alignment. Atherosclerosis. IMPRESSION: No additional fracture 3 views left hand No acute displaced fracture of left hand. Degenerative change. IMPRESSION: No additional left hand fracture. Impression dictated by: Nick Stokes M.D. 01/07/2025 10:13 AM Dictation Location: [facility]SW[facility]ALLARDSpare to Share Electronically authenticated by: [id number] Y Date: 01/07/2025 10:13
--- NOTE | 2025-01-07 09:32 | CT_ITS ---
The [address] [address] Patient Name: DEXTER MCCARTHY MRN: [id number] date: 1945 Sex: F Assigned Patient Location: ER Current Patient Location: ER Accession/Order Number: [id number] Exam Date: 01/07/2025 10:13 Report Date: 01/07/2025 10:20 At the request of: EMILY HEATH MD Procedure: CT cervical spine wo con Unenhanced head CT TECHNIQUE: Contiguous axial imaging of the head. The CT exam was performed using one or more the following dose reduction techniques: Automated exposure control, adjustment of the MA and/or Kv according to patient size, or use of the iterative reconstruction technique. COMPARISON: 10/09/2023 HISTORY: Trauma. Fell. Head injury. VENTRICLES: Within normal limits ATROPHY: Similar atrophy BRAIN PARENCHYMA: Decreased density of the white matter is most consistent with chronic small vessel disease. HEMORRHAGE: None HERNIATION: No mass effect or herniation INFARCTION: No recent vascular distribution infarction is seen. EXTRA-AXIAL FLUID COLLECTIONS None MIDBRAIN: Unremarkable OMAR: Unremarkable MEDULLA: Unremarkable SINUSES: Unremarkable ORBITS: Grossly unremarkable MASTOIDS: Unremarkable BONY STRUCTURES Intact ADDITIONAL FINDINGS: Left frontal scalp hematoma. Atherosclerosis of carotid siphons and V4 segments CT/CT cervical spine wo con IMPRESSION: No acute findings. CT Cervical Spine withoutcontrast TECHNIQUE: Axial imaging with 2-D and 3-D reconstruction. The CT exam was performed using one or more the following dose reduction techniques: Automated exposure control, adjustment of the MA and/or Kv according to patient size, or use of the iterative reconstruction technique. COMPARISON: 10/07/2023 HISTORY: As above POST SURGERY CHANGES: None BONY ALIGNMENT: Similar alignment with mild degenerative listhesis BONY SPINAL CANAL: Patent central bony canal FRACTURE: None BONY LESIONS: None SOFT TISSUES: Unremarkable DEGENERATIVE CHANGES: Spondylosis greatest at the C4-5 level. Extensive facet degeneration. LUNG APICES: Unremarkable ADDITIONAL FINDINGS: IMPRESSION: No acute process Impression dictated by: Nick Stokes M.D. 01/07/2025 10:20 AM Dictation Location: [place] [address] Electronically authenticated by: [id number] Y Date: 01/07/2025 10:20
--- NOTE | 2025-01-07 09:32 | XR_ITS ---
The [address] [address] Patient Name: DEXTER MCCARTHY MRN: [id number] date: 1945 Sex: F Assigned Patient Location: ER Current Patient Location: ER Accession/Order Number: [id number] Exam Date: 01/07/2025 10:10 Report Date: 01/07/2025 10:13 At the request of: EMILY HEATH MD Procedure: XR forearm LT 2V 3 views left wrist plain film COMPARISON: None HISTORY: Left hand, forearm and wrist injury ACUTE FINDINGS: Nondisplaced ulnar styloid fracture. Nondisplaced distal radius fracture. DEGENERATIVE CHANGE: Mild SOFT TISSUE FINDINGS: Atherosclerosis JOINT EFFUSION: None POSTOP CHANGES: None BONE MINERALIZATION: Adequate XR/XR wrist LT min 3V IMPRESSION: Nondisplaced distal radius fracture and ulnar styloid fracture. 2 views left forearm Fractures of distal radius and ulnar styloid redemonstrated without additional fracture identified. Adequate bony alignment. Atherosclerosis. IMPRESSION: No additional fracture 3 views left hand No acute displaced fracture of left hand. Degenerative change. IMPRESSION: No additional left hand fracture. Impression dictated by: Nick Stokes M.D. 01/07/2025 10:13 AM Dictation Location: [facility]OSPITALDropost.it Electronically authenticated by: [id number] Y Date: 01/07/2025 10:13
--- NOTE | 2025-01-07 10:17 | PC.NURSE ---
Swelling present to left wrist, skin pink and warm and pulses present. Bruise noted above left eye, ice applied. Skin tear to left side of face, area cleansed with hibicleanse, and covered with adaptic, telfa, and guaze.
[2025-01-07] MEDS: LIDOCAINE HCL 1% 100 MG/10 ML MDV INJ (10:48)
--- NOTE | 2025-01-07 12:03 | ED.FALL1 ---
HPI HPI - Fall General Chief Complaint: Fall Stated Complaint: FALL HEAD INJURY Time Seen by Provider: 01/07/25 09:28 Source: patient Mode of arrival: Wheelchair History of Present Illness HPI Narrative: The patient 79-year-old female who had a fall just before arrival, is coming by private car he was standing from her bed when she felt dizzy and hit the wall just in front of the bed the patient did not have any loss of consciousness she had the left side of her face, she also denies any other injury except for left arm pain as well The patient denies any nausea vomiting or any abdominal pain She also denies any dizziness Related Data Home Medications ?Medication ?Instructions ?Recorded ?Confirmed atorvastatin 10 mg tablet 10 mg PO DAILY 07/29/23 01/07/25 levothyroxine 75 mcg tablet 75 mcg PO DAILY 07/29/23 01/07/25 metoprolol succinate 25 mg 25 mg PO DAILY 07/29/23 01/07/25 tablet,extended release 24 hr omeprazole 40 mg capsule,delayed 40 mg PO DAILY 07/29/23 01/07/25 release acetaminophen 500 mg tablet 1,000 mg PO Q6H PRN pain 09/13/23 01/07/25 (Tylenol Extra Strength) lisinopril 5 mg tablet 5 mg PO DAILY 01/07/25 01/07/25 Previous Rx's ?Medication ?Instructions ?Recorded fluticasone propionate 50 2 spray intranasal QD #16 grams 10/12/23 mcg/actuation nasal spray,suspension tramadol 50 mg tablet 50 mg PO Q8H PRN pain 3 days #9 01/07/25 tabs Allergies Allergy/AdvReac Type Severity Reaction Status Date / Time No Known Drug Allergies Allergy Verified 05/15/24 10:56 Opioid HPI Opioid Management Most Recent Pain and Opioid Data: Last Pain Scale 1 05/15/24, 10:53 Review of Systems ROS Status of ROS 10 or more systems reviewed and unremarkable except as noted in history and below PFSH PFS Medical History Essential (primary) hypertension ?I10 - Essential (primary) hypertension (ICD-10) Vertigo ?R42 - Dizziness and giddiness (ICD-10) Sinus arrhythmia seen on electrocardiogram ?I49.8 - Other specified cardiac arrhythmias (ICD-10) Hypothyroid ?E03.9 - Hypothyroidism, unspecified (ICD-10) Sacroiliac dysfunction ?M53.3 - Sacrococcygeal disorders, not elsewhere classified (ICD-10) Lumbar spondylosis ?M47.816 - Spondylosis without myelopathy or radiculopathy, lumbar region (ICD-10) Lumbar stenosis with neurogenic claudication ?M48.062 - Spinal stenosis, lumbar region with neurogenic claudication (ICD-10) DDD (degenerative disc disease), lumbar ?M51.36 - Other intervertebral disc degeneration, lumbar region (ICD-10) Low back pain ?M54.50 - Low back pain, unspecified (ICD-10) Irregular heartbeat ?I49.9 - Cardiac arrhythmia, unspecified (ICD-10) Acid reflux ?K21.9 - Gastro-esophageal reflux disease without esophagitis (ICD-10) Rheumatoid arthritis ?M06.9 - Rheumatoid arthritis, unspecified (ICD-10) Osteoarthritis ?M19.90 - Unspecified osteoarthritis, unspecified site (ICD-10) Hearing deficit ?H91.90 - Unspecified hearing loss, unspecified ear (ICD-10) Hypertension ?I10 - Essential (primary) hypertension (ICD-10) High cholesterol ?E78.00 - Pure hypercholesterolemia, unspecified (ICD-10) Family History Father Family history of hypertension Family history of stroke Mother Family history of hypertension Family history of myocardial infarction, Onset Age: 45 Social History Within the past year, how often did you have a drink containing alcohol: monthly or less Within the past year, how often did you have six or more drinks on one occasion: never Smoking status: Never smoker Non-prescribed substance use: denies use 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 Known occupational exposures/hazards: No Highest level of school completed/degree received: Master's degree Are you now , , , , never or living with a partner: In a typical week, how many times do you talk on the telephone with family, friends, or neighbors: twice per week How often do you get together with friends or relatives: twice per week How often do you attend congregational or christian services: 4 or more times per year Little interest or pleasure in doing things: not at all Feeling down, depressed, or hopeless: not at all Feel stressed/tense/nervous/anxious/difficulty sleeping: only a little Life stressor details: medical issues Gender Identity: female Exam Narrative Exam Narrative: Nurses notes and vital signs reviewed and patient is not hypoxic. General: Well-appearing and in no apparent distress. Skin: Warm, dry, no pallor noted. No rash. Head: Normocephalic, there is abrasion to the forehead almost at the mid of the forehead that is almost half centimeter there is another abrasion just on the left cheek circular also 1 cm and superficial, and there is a V-shaped laceration just lateral to the left eye almost 2 cm lateral to the eye and it is not showing exposure of the underlying structures but is going through the skin the dermis and the epidermis Neck: Supple, non-tender. Eye: Pupils are equal, round and EOMI. No scleral icterus. Ears, Nose, Mouth, and Throat: TM are clear, no nasal mucosal hypertrophy. Oral mucosa is moist, no posterior oropharynx erythema, uvula is mid-line Cardiovascular: Regular Rate and Rhythm without murmur, gallop or rub. Respiratory: No accessory muscle use or respiratory distress. Lungs are clear to auscultation, no wheezing, rales or rhonchi Chest Wall: no tenderness Back: No midline thoracic or lumbar vertebral tenderness. No CVA tenderness Musculoskeletal: There is a significant swelling of the left forearm mostly the distal third as well as the wrist area and that there is decreased range of movement due to pain and swelling GI: Abdomen is soft, non-distended. Normal bowel sounds. No masses appreciated. No tenderness to palpation. No rebound, guarding, or rigidity noted. Neurological: A&O x4. No cranial nerve dysfunction observed. No truncal ataxia. Moves all extremities. Sensation intact. Psychiatric: Cooperative and interactive. Normal mood and affect. Constitutional Vital Signs, click to edit/add: Last Vital Signs Temp 97.6 F 01/07/25 09:21 Pulse 92 H 01/07/25 09:21 Resp 18 01/07/25 09:21 BP 176/94 H 01/07/25 09:21 Pulse Ox 98 01/07/25 09:21 Course Vital Signs Vital signs: Vital Signs Temperature 97.6 F 01/07/25 09:21 Pulse Rate 92 H 01/07/25 09:21 Respiratory Rate 18 01/07/25 09:21 Blood Pressure 176/94 H 01/07/25 09:21 Pulse Oximetry 98 01/07/25 09:21 Temperature 97.6 F 01/07/25 09:21 Pulse Rate 92 H 01/07/25 09:21 Respiratory Rate 18 01/07/25 09:21 Blood Pressure 176/94 H 01/07/25 09:21 Pulse Oximetry 98 01/07/25 09:21 MDM - Fall MDM Narrative Medical decision making narrative: The patient was placed to the hard cervical collar upon arrival CT head as well as CT is cervical spine showed no acute pathology in the neck collar was removed The patient also had a tetanus booster provided in the ER The laceration on the lateral aspect of her face mostly just lateral to the left eye with sutures after infiltrating the area with 1% lidocaine almost 3 cc the patient had 7 stitches that are 5-0 Prolene The patient tolerated the procedure well Also sugar-tong splint applied to the left forearm after the patient have a distal forearm fracture that is nondisplaced to the radius as well as the styloid process of the ulna The patient was placed also in the sling provided with tramadol for pain control and referred to see orthopedics tomorrow by Dr. Hendricks at 10 AM The patient instructed as well as her at bedside that in case of any headache any nausea vomiting or decreased level of consciousness in the next 12 hours the patient to come back to the ER The patient is to follow up with primary care physician in next 2-3 days or to return to the emergency department should any of the signs or symptoms worsen or new symptoms develop. The patient agrees with the following Diagnosis and Treatment plan and the patient will be discharged home. Discharge Plan Discharge Chief Complaint: Fall Clinical Impression: Acute head trauma, Face lacerations, Forearm fracture Fall Qualifiers: Encounter type: subsequent encounter Qualified Code(s): W19.XXXD - Unspecified fall, subsequent encounter Patient Disposition: Home, Self-Care Time of Disposition Decision: 11:28 Condition: Good Prescriptions / Home Meds: New tramadol 50 mg tablet 50 mg PO Q8H PRN (Reason: pain) 3 Days Qty: 9 0RF No Action acetaminophen [Tylenol Extra Strength] 500 mg tablet 1,000 mg PO Q6H PRN (Reason: pain) fluticasone propionate 50 mcg/actuation [place],Suspension 2 spray intranasal QD Qty: 16 0RF atorvastatin 10 mg tablet 10 mg PO DAILY metoprolol succinate 25 mg tablet extended release 24 hr 25 mg PO DAILY levothyroxine 75 mcg tablet 75 mcg PO DAILY omeprazole 40 mg capsule,delayed release(DR/EC) 40 mg PO DAILY lisinopril 5 mg tablet 5 mg PO DAILY Print Language: Filipino Instructions: Arm Fracture in Adults (DC), Laceration (ED), Fall Prevention (ED) Referrals: FERNIE LEONG [Primary Care Provider, Family Practice] - 1 week Charles Hendricks MD [Physician, Orthopedics] - 01/08/25 10:00 am Discharge Date/Time: 01/07/25 11:41
== END 2025-01-07 11:41 | disposition home or self-care (01) ==
PROVIDERS: Emergency Provider Emergency Medicine; PCP Family Medicine
DX: S52.615A Nondisplaced fracture of left ulna styloid process, initial encounter for closed fracture (principal); S52.502A Unspecified fracture of the lower end of left radius, initial encounter for closed fracture; S01.112A Laceration without foreign body of left eyelid and periocular area, initial encounter; M47.812 Spondylosis without myelopathy or radiculopathy, cervical region; W19.XXXA Unspecified fall, initial encounter; W22.01XA Walked into wall, initial encounter
CPT/HCPCS: 12011; 29125; 70450; 72125; 73090; 73110; 73130; 99285

== ENCOUNTER 2025-01-11 18:54 | Observation (INO) | payer MEDICARE, SELFPAY ==
--- OUTSIDE RECORDS SUMMARY | 2023-10-25 07:20 | XMS_ITS ---
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 502 Reviewed date:10/25/2023 03:43:01 PM Interpretation: Performing Lab: Notes/Report: REASON FOR VISIT RIGHT HIP FX Encounters Encounter Location Date Provider Diagnosis [facility] [address] [facility] [place] [address] [place] [address] 10/25/2023 Charles Hendricks Closed fracture of neck of right femur, initial encounter S72.001A Assessments Encounter Date Diagnosis (ICD Code) Assessment Notes Treatment Notes Treatment Clinical Notes Section Notes 10/25/2023 Closed fracture of neck of right femur, initial encounter (ICD-10 - S72.001A) 10/25/2023 Other Sutures removed today in clinic. She will continue with weightbearing as tolerated. She will follow-up in 6 weeks to reassess her progress. Import medication Plan Of Treatment Treatment Notes Assessment Notes Other Sutures removed today in clinic. She will continue with weightbearing as tolerated. She will follow-up in 6 weeks to reassess her progress. Import medication Next Appt Details Follow Up: 6 Weeks, Reason: Provider Name:Charles Neely and, 01/15/2025 09:00:00 AM, [address] [facility], [address], [place], [address], Progress Notes * Vazquez MCCARTHYOB: 4 (78 yo F)Acc No.[id number]:10/25/2023 Patient: Dexter KOVACS Provider: Hailey Hendricks MD :1945 A ge:77 Y S ex:Female Date:10/25/2023 Address:[address] , [id number] Subjective: * Chief Complaints: * R IGHT HIP FX * HPI: G eneral Follow Up Information: Patient presents today for follow-up of her right hip hemiarthroplasty doing well. She reports minimal discomfort. * Medical History: * Surgical History: N o Surgical History documented. * Family History: N o Family History documented.. * Medications: N one * Allergies: n o[Allergies Verified] Objective: * Vitals: * Examination: G eneral examination: O n exam today she is in no obvious distress. Right hip incision is healing nicely. No sign of infection. Painless hip range of motion. X -ray Imaging Studies: R ight hip x-rays today show the hemiarthroplasty in good alignment. . M RI Imaging Studies: Assessment: * Assessment: 1. C losed fracture of neck of right femur, initial encounter - S72.001A (Primary) Plan: * Treatment: 2. O thers Notes: Sutures removed today in clinic. She will continue with weightbearing as tolerated. She will follow-up in 6 weeks to reassess her progress. Import medication * Procedure Codes: * Follow Up: 6 Weeks Forms: * Images: * Sign off status: Completed true * Provider: Hailey Hendricks MD Date: 10/25/2023 Generated for Jocelini rey/Jyoti/Eribertoransmitting on: 0 01/12/2025 07:48 AM EDT History and Physical Notes * HPI (History of Present Illness) Category Sub-Category Detail Notes Category Not es General Follow Up Information Patient presents tod ay for follow-up of her right hip hemiarthroplasty doing well. She reports minimal discomfort. Examination Category Sub-Category Detail Notes Category Not es General examination On exam today she is in no obvious distress. Right hip incision is healing nicely. No sign of infection. Painless hip range of motion. X-ray Imaging Studies Right hip x-rays today show the hemiarthroplasty in good alignment. MRI Imaging Studies
--- OUTSIDE RECORDS SUMMARY | 2023-10-25 07:20 | XMS_ITS ---
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 Reviewed date:10/25/2023 03:43:01 PM Interpretation: Performing Lab: Notes/Report: REASON FOR VISIT RIGHT HIP FX Encounters Encounter Location Date Provider Diagnosis [facility] [address] [facility] [place] [address] [place] [address] 10/25/2023 Charles Hendricks Closed fracture of neck [...] Neely and, 01/15/2025 09:00:00 AM, [address] [facility], [address], [place], [address], Progress Notes * Vazquez MCCARTHYOB: 4 (78 yo F)Acc No.[id number]:10/25/2023 Patient: Dexter KOVACS Provider: Hailey Hendricks MD :1945 A ge:77 Y S ex:Female Date:10/25/2023 Address:[address] , [id number] Subjective: * Chief Complaints: * R IGHT [...] 10/25/2023 Generated for Jocelini rey/Jyoti/Eribertoransmitting on: 0 01/11/2025 07:00 PM EDT History and Physical Notes * HPI [...]
--- OUTSIDE RECORDS SUMMARY | 2023-12-06 06:50 | XMS_ITS ---
Author Organization [facility] Address [address] [place] [address] Care Team Providers Care Locomotive Operator Name Role Phone Charles Hendricks Unavailable [phone] REASON FOR VISIT Right hip FX, DOI 10/07/23 Encounters Encounter Location Date Provider Diagnosis [facility] [address] [facility] [place] [address] [place] [address] 12/06/2023 Charles Hendricks Plan Of Treatment Next Appt Details Provider Name:hCarles Neely and, 01/15/2025 09:00:00 AM, [address] [facility], [address], [place], [address], Progress Notes * SULEMA MCCARTHYEDOB: (79 yo F)Acc No.[id number]:12/06/2023 Patient: DEXTER KOVACS Provider: Hailey Hendricks MD :1945 A ge:77 Y S ex:Female Date:12/06/2023 Address:[id number] Subjective: * Chief Complaints: * 1 . Right hip FX, DOI 10/07/23. * Medical History: Objective: * Vitals: Assessment: Plan: * Treatment: Forms: * Images: * Electronic signature of Ned Hendricks MD on 01/11/2025 at 07:01 PM EDT Sign off status: Pending * Provider: Hailey Hendricks MD Date: 0 12/06/2023 Generated for Abdullahi le/Jyoti/Sheldon on: 0 01/11/2025 07:01 PM EDT
--- OUTSIDE RECORDS SUMMARY | 2023-12-06 06:50 | XMS_ITS ---
Author Organization [facility] Address [address] [place] [address] Care Team Providers Care Advertising Specialist Name Role Phone Charles Hendricks Unavailable [phone] REASON FOR VISIT Right hip FX, DOI 10/07/23 Encounters Encounter Location Date Provider Diagnosis [facility] [address] [place] [address] [facility] [place] [address] [place] [address] 12/06/2023 Charles Hendricks Plan Of Treatment Next Appt Details Provider Name:Charles Neely and, 01/15/2025 09:00:00 AM, [address] [place] [facility], [address], [place], [address], Progress Notes * SULEMA MCCARTHYEDOB: (79 yo F)Acc No.[id number]:12/06/2023 Patient: DEXTER KOVACS Provider: Hailey Hendricks MD :1945 A ge:77 Y S ex:Female Date:12/06/2023 Address:[address] [id number] Subjective: * Chief Complaints: * 1 . Right hip FX, DOI 10/07/23. * Medical History: Objective: * Vitals: Assessment: Plan: * Treatment: Forms: * Images: * Electronic signature of Ned Hendricks MD on 01/12/2025 at 07:48 AM EDT Sign off status: Pending * Provider: Hailey Hendricks MD Date: 0 12/06/2023 Generated for Abdullahi le/Jyoti/Sheldon on: 0 01/12/2025 07:48 AM EDT
--- OUTSIDE RECORDS SUMMARY | 2024-12-26 10:00 | XMS_ITS | Encounter Summary ---
Author Organization [facility] Address [address] [facility] [place] [address] Care Team Providers Care Radio Time Sales Supervisor Name Role Phone Cynthia Hernandez MD Unavailable [phone] Libby Ward NP Unavailable [phone] Cynthia Hernandez MD Primary Care Provider [phone] Reason for Visit * Rehabilitation - Outpatient (Routine) - Authorized Specialty Diagnoses / Procedures Referred By Suni conde Referred To Contact Physical Therapy Diagnoses Spinal stenosis, lumbar region with neurogenic claudication Procedures CO PHYSICAL THERAPY EVALUATION LOW COMPLEX 20 MINS CO OFFICE/OUTPATIENT NEW HIGH MDM 60 MINUTES Kulwant García MD [address] [place] [address] Phone: tel: fax: Mayur Agarwal, PT [address] [facility] [address] [place] [address] Phone: tel: fax: Referral ID Status Reason Start Date Expiration Date V isits Requested Visits Authorized [id number] Authorized 12/01/2024 08/08/2025 99 99 Encounter Details Date Type Department Care Team (Late st Contact Info) Description 12/26/2024 10:00 AM EDT Treatment [facility] [address] [facility] [address] [place] [id number] Clara Echeverria, EMT I/99 Lumbar paraspinal muscle spasm (Primary Dx); Weakness of both lower extremities; Frequent falls Social History Tobacco Use Types Packs/Day Years Used Date Smoking Tobacco: Never Smokeless Tobacco: Never Alcohol Use Standard Drinks/Week Comments Not Currently 0 (1 standard drink = 0.6 oz pure alcohol) Caffeine intake : 1-2 cups/day coffee AUDIT-C Answer Date Recorded Q1: How often do you have a drink containing alc ohol? Monthly or less 09/02/2023 Q2: How many drinks containi ng alcohol do you have on a typical day when you are drinking? 1 or 2 09/02/2023 Q3: How often do you have si x or more drinks on one occasion? Never 09/02/2023 PHQ-2 Answer Date Recorded Patient Health Questionnaire-2 Score 0 2024 Comments Unknown Sex and Gender Information Value Date Recorded Sex Assigned at Not on file Legal Sex Female 7:18 PM EDT Gender Identity Female 10/21/2022 7:18 PM EDT Sexual Orientation Not on file documented as of this encounter Progress Notes * Clara Echeverria, EMT I/99 - 12/26/2024 10:00 AM EDT Images from the original note were not included. Physical Therapy Treatment Visit Patient Name: Dominique Liz Today's Date: 12/26/2024 Encounter Diagnoses Name Primary? Lumbar paraspinal muscle spasm Yes Weakness of both lower extremities Frequent falls Visit number: 5 Timed Code Treatment: 42 minutes Total Treatment Time: 52 minutes Time In: 10:00 AM Time Out: 10:52 AM History: Pt. Presents to PT with c/c of low back pain, LE weakness, and poor balance. Pt. Reports she fall frequently (1-3x per week) due to her legs giving out on her. Pt walks with SPC and rollatorthroughout her home. Pt. Does have good and bad days were she has more leg weakness and poor balance than other. Pt. Reports after her last round of PT in 2023 she was walking better and felt like her had more balance. However, she has last a lot of strength in the last couple of months and startedfalling a lot more. Precautions: fall risk Subjective: reports bad day, unsure of reason. Continues to report improvement post sessions but not long lasting Pain: 7/10 LB Objective: PT Evaluation (12/07/24) Lumbar ROM: grossly limited 25% in all planes Joint: hypomobility in lumbar spine grossly Strength: right LE 4-/5, left LE 4-/5 Balance: poor dynamic standing Functional: moderate use of left UE with sit to stand transfers Gait: SPC, shuffling gait, decreased stride length, slow pace. Treatment: Manual Therapy: (14 minutes) Delivered manual ther pt prone: Lower lumbar spine MFR to lumbar spine, gentle grade II PA mobs to lumbar spine to improve mobility and decrease pain Therapeutic Exercise: (18 minutes supervised ) guided pt through ther and flex exercise per grid; to improve lumbar, core, LE functional Strength, Endurance, Flexibility, ROM, HEP, Neural Mobilization, Power, and Core Stability Nustep Therapeutic Activity: Exercises to improve dynamic activities, functional tasks, functional mobility to return to prior activity level Gait Training: Neuromuscular re-education: (10 minutes supervised) Core lumbar dynamic activity to improve stability and strength of transverse abdominal core stability Modalities: (10 minutes ) Post session pt seated MHP to LB to decrease muscle soreness Assessment: Pt has participated in 5 PT session with start of POC on 12/07/24 for chronic low back pain, LE weakness, poor balance. Amb into clinic with SPC improved upright posture and gait. Demos weakness greater in R LE than L. Better tolerance to PREs this date and transferred from supine, sit and stand with improvement Verbal cuing with most for correct muscle facilitation. Ended session with MHP. Slowprogression towards LTGs Outcome Measure: in chart Short Term Goal: To be met in 2 weeks Goal 1: Pt to be instructed in home exercise program. Rubber Extrusion Machine Operator Goals: To be met in 10 weeks Goal 1: Pt to report independence and compliance with home program. Goal 2: Pt. Will report of 2/10 or less low back pain while performing daily task to help improve her quality of life. Goal 3: Pt. Will demonstrate normal lumbar paraspinal muscle flexibility to help decrease pain to improve her functional mobility. Goal 4: Pt. Will demonstrate 5/5 bilateral LE strength to allow her to walk/stand for long periods of time to improve her quality of life. Goal 5: Pt. Will demonstrate fair + dynamic balance to help improve her functional mobility and decrease fall risk. Pt will benefit from skilled PT for 1-3x/week from 12/07/24 to 02/15/25 to address the above impairments. I hereby deem this POC medically necessary. Please sign below. Date: documented in this encounter Plan of Treatment Not on file documented as of this encounter Visit Diagnoses Diagnosis Lumbar paraspinal muscle spasm- Primary Other symptoms referable to back Weakness of both lower extremities Frequent falls documented in this encounter Additional Health Concerns Assessment Noted Time PHQ-9 Depression Total Score: 12 09/02/ 024 2:11 PM EST documented as of this encounter Care Teams Radio Time Sales Supervisor Relationship Specialty Start Date End Date Cynthia Hernandez MD [address] [facility] [place] [address] PCP - [employer] 08/09/20 Cynthia Hernandez MD [address] [facility] [place] [address] PCP - General Family Medicine 01/18/24 Libby Ward NP [address] [facility] [place] [address] Nurse Practitioner Family Medicine 02/05/23 documented as of this encounter
--- OUTSIDE RECORDS SUMMARY | 2024-12-28 11:30 | XMS_ITS | Encounter Summary ---
Author Organization [facility] Address [address] [facility] [place] [address] Care Team Providers Care Boilermaker Assembly And Erection Name Role Phone Cynthia Hernandez MD Unavailable [phone] Libby Ward NP Unavailable [phone] Cytnhia Hernandez MD Primary Care Provider [phone] Reason for Visit * Rehabilitation - Outpatient (Routine) - Authorized Specialty Diagnoses / Procedures Referred By Suni conde Referred To Contact Physical Therapy Diagnoses Spinal stenosis, lumbar region with neurogenic claudication Procedures [place] PHYSICAL THERAPY EVALUATION LOW COMPLEX 20 MINS [place] OFFICE/OUTPATIENT NEW HIGH MDM 60 MINUTES Kulwant García MD [address] [place] [address] Phone: tel: fax: Mayur Agarwal, PT [address] [facility] [address] [place] [address] Phone: tel: fax: Referral ID Status Reason Start Date Expiration Date V isits Requested Visits Authorized [id number] Authorized 12/01/2024 08/08/2025 99 99 Encounter Details Date Type Department Care Team (Late st Contact Info) Description 12/28/2024 11:30 AM EDT Treatment [facility] [address] [facility] [address] [place] [address] Clara Echeverria, PERINATAL SPECIALIST Lumbar paraspinal muscle spasm (Primary Dx); Weakness of both lower extremities Social History Tobacco Use Types Packs/Day Years [...] this encounter Progress Notes * Clara Echeverria, THELMA - 12/28/2024 11:30 AM EDT Images from the original note were not included. Physical Therapy Treatment Visit Patient Name: Dominique Liz Today's Date: 12/28/2024 Encounter Diagnoses Name Primary? Lumbar paraspinal muscle spasm Yes Weakness of both lower extremities Visit number: 6 Timed Code Treatment: 45 minutes Total Treatment Time: 55 minutes Time In: 11:31 AM Time Out: 12:26 PM History: Pt. Presents to PT with c/c [...] stride length, slow pace. Treatment: Manual Therapy: (15 minutes) Delivered manual ther pt prone: Lower lumbar spine MFR to lumbar spine, gentle grade II PA mobs to lumbar spine to improve mobility and decrease pain Therapeutic Exercise: (20 minutes supervised ) guided pt through ther [...] muscle soreness Assessment: Pt has participated in 6 PT session with start of POC on 12/07/24 for chronic low back pain, LE weakness, poor balance. Amb into clinic with SPC improved upright posture and gait. Demos weakness greater in R LE than L. Better tolerance to PREs this date and transferred from supine, sit and stand with improvement Verbal cuing with most for correct muscle facilitation. Ended session with MHP. Slow progression towards LTGs Outcome Measure: in chart Short [...] necessary. Please sign below. Date: Cosigned by Mayur Agarwal, PT at 12/28/2024 1:01 PM EDT documented in this encounter Plan of Treatment Not on file documented as of this encounter Visit Diagnoses Diagnosis Lumbar paraspinal muscle spasm- Primary Other symptoms referable to back Weakness of both lower extremities documented in this encounter Additional Health Concerns Assessment Noted Time PHQ-9 Depression Total Score: 12 024 2:11 PM EST documented as of this encounter Care Teams Boilermaker Assembly And Erection Relationship Specialty Start Date End Date Cynthia Hernandez MD [address] [facility] [place] [address] PCP - [employer] 08/09/20 Cynthia Hernandez MD [address] [facility] [place] [address] PCP - General Family Medicine 01/18/24 Libby Ward NP [address] [place] [address] Nurse Practitioner Family Medicine 02/05/23 documented as of this encounter
--- OUTSIDE RECORDS SUMMARY | 2024-12-29 10:00 | XMS_ITS | Encounter Summary ---
Author Organization [facility] Address [address] [facility] [place] [address] Care Team Providers Care Accounts Payable Assistant Name Role Phone Cynthia Hernandez MD Unavailable Libby Ward NP Unavailable [phone] Cynthia Hernandez MD Primary Care Provider [phone] Reason for Visit * Reason Comments Medicare Annual Wellness Visit Subsequen t Encounter Details Date Type Department Care Team (Latest Contact Info) Description 2024 10:00 AM EDT Office Visit [facility] [address] [place] [address] Cynthia Hernandez MD [address] [place] [address] Peripheral polyneuropathy (Primary Dx); Wellness examination; Herpes simplex; Essential hypertension (CMS/HCC); Mixed hyperlipidemia (CMS/HCC); Acquired hypothyroidism (CMS/HCC); Spinal stenosis of lumbar region, unspecified whether neurogenic claudication present Social History Tobacco Use Types Packs/Day Years [...] on file documented as of this encounter Last Filed Vital Signs Vital Sign Reading Time Taken Comments Blood Pressure 128/76 2024 9:56 AM EDT Pulse 72 2024 9:56 AM EDT Temperature - - Respiratory Rate 18 2024 9:56 AM EDT Oxygen Saturation 97% 2024 9:56 AM EDT Inhaled Oxygen Concentration - - Weight 65.3 kg (144 lb) 2024 9:56 AM EDT Height 160 cm (5' 3 ) 2024 9:56 AM EDT Body Mass Index 25.51 2024 9:56 AM EDT documented in this encounter Functional Status * Over the past 2 weeks, how often have you been bothered by any of the following problems? Question Answer Date of Assessment Author Little interest or pleasure in doing things Not at all 2024 9:00 AM EDT Lyn Calhoun MA Feeling down, depressed, or hopeless Not at all 2024 9:00 AM EDT Lyn Calhoun MA Patient Health Questionnaire -2 Score 0 2024 9:00 AM EDT Lyn Calhoun MA * Question Answer Date of Assessment Author Trouble falling or staying asleep, or sleeping too much Not at all 2024 9:00 AM SASHAT Lyn Calhoun MA Feeling tired or having nilesh le energy Not at all 2024 9:00 AM EDT Lyn Calhoun MA Poor appetite or overeating Not at all 2024 9: 00 AM EDT Lyn Calhoun MA Feeling bad about yourself - or that you are a failure or have let yourself or your family down Not at all 2024 9:00 AM EDT Lyn Calhoun MA Trouble concentrating on things, such as reading the newspaper or watching television Not at all 2024 9:00 AM EDT Lyn Calhoun MA Moving or speaking so slowly that other people could have noticed? Or the opposite - being so fidgety or restless that you have been moving around a lot more than usual. Not at all 2024 9:00 AM EDT Lyn Gill MA Thoughts that you would be better off or hurting yourself in some way Not at all 2024 9:00 AM EDT Lyn Calhoun MA Patient Health Questionnaire -9 Score 0 2024 9:00 AM EDT Lyn Calhoun MA documented as of this encounter Progress Notes * Cynthia Hernandez MD - 2024 10:00 AM EDTAssociated Problem(s): Essential hypertension (CMS/HCC) Well controlled on medications. * Cynthia Hernandez MD - 2024 10:00 AM EDTAssociated Problem(s): Hypothyroidism, unspecified Controlled on synthroid. * Cynthia Hernandez MD - 2024 10:00 AM EDTAssociated Problem(s): Mixed hyperlipidemia (CMS/HCC) Continue lipitor. * Cynthia Hernandez MD - 2024 10:00 AM EDT Subjective Patient ID: Dominique Liz is a 79 y.o. female who presents for Medicare Annual Wellness Visit Subsequent. Over the past 2 weeks, how often have you been bothered by any of the following problems? Little interest or pleasure in doing things: Not at all Feeling down, depressed, or hopeless: Not at all Patient Health Questionnaire-2 Score: 0 Over the past 2 weeks, how often have you been bothered by any of the following problems? Trouble falling or staying asleep, or sleeping too much: Not at all Feeling tired or having little energy: Not at all Poor appetite or overeating: Not at all Feeling bad about yourself - or that you are a failure or have let yourself or your family down: Not at all Trouble concentrating on things, such as reading the newspaper or watching television: Not at all Moving or speaking so slowly that other people could have noticed? Or the opposite - being so fidgety or restless that you have been moving around a lot more than usual.: Not at all Thoughts that you would be better off or hurting yourself in some way: Not at all Patient Health Questionnaire-9 Score: 0 Kolb Fall Risk History of Falling, Immediate or Within 3 Months: Yes Health Risk Assessment Form Do you need help eating, bathing, using the toilet, dressing, or getting around your home?: No Can you prepare your own meals?: No Can you do your own housework without help?: No Can you shop for groceries or clothes without help?: No Do you exercise for about 20 minutes 3 or more days a week?: Yes How confident are you that you can control and manage most of your health problems?: Somewhat confident Can you mange your money, credit cards and accounts, pay bills and taxes?: No Cognitive Screening Self Assessment: No overt cognitive deficiency is apparent by direct observation Three Word Registration: Banana, [place], Chair Clock Drawing: Normal Clock - 2 Three Word Recall: 1/3 words correct - 1 Total Score (0-5 Points): 3 Pain Assessment Pain Score: 5 - Moderate pain History of Present Illness History of Present Illness The patient presents for evaluation of spinal stenosis and shingles. She reports overall well-being but experiences intermittent episodes of instability and tremors. She has transitioned from using a walker to a cane due to a previous fall incident. The seated walker is utilized within the home environment, while the cane is preferred for outdoor mobility. Weekly falls occur at home, attributed to her legs giving way, a symptom suspected to be related to her spinal stenosis. A consultation with a neurosurgeon in [place] is being considered to explore potential interventions for her stenosis. An MRI is planned prior to this appointment. She has been attending therapy sessions, which she finds beneficial. She has undergone nerve conduction studies on her legswithin the past year but is reluctant to repeat the procedure due to associated pain. Her vertigo has resolved following Apley treatment, although occasional lightheadedness persists. However, she has not experienced any falls due to vertigo. She occasionally experiences sudden leg shaking while standing or walking, leading to falls, which are believed to be neuropathic in nature. She presents with a rash on her shoulder, which has been present for several years. The rash exhibits blistering upon flare-up and is associated with itching and pain. She also reports a sensation ofitching and burning prior to the appearance of the rash. She has been managing it with Neosporin and bandaging, which provides some relief. She has a history of shingles, but the current rash is not located in the same area. Objective BP 128/76 Pulse 72 Resp 18 Ht 5' 3 Wt 144 lb SpO2 97% BMI 25.51 kg/m?? Physical Exam Vitals and nursing note reviewed. Constitutional: Appearance: Normal appearance. HENT: Head: Normocephalic and atraumatic. Cardiovascular: Rate and Rhythm: Normal rate and regular rhythm. Pulses: Normal pulses. Heart sounds: Normal heart sounds. Pulmonary: Effort: Pulmonary effort is normal. Breath sounds: Normal breath sounds. Musculoskeletal: Cervical back: Normal range of motion and neck supple. Comments: Strength 5/5 in the quads and feet. Skin: General: Skin is warm and dry. Capillary Refill: Capillary refill takes less than 2 seconds. Neurological: General: No focal deficit present. Mental Status: She is alert. Assessment & Plan 1. Spinal stenosis. - Reports feeling wobbly and shaky at times, leading to frequent falls, likely due to spinal stenosis. - Uses a cane for stability but experiences weekly falls at home. Attending therapy, which helps. - Consultation with a neurosurgeon in [place] is planned to explore surgical options. - Blood work will be conducted today to rule out other potential causes of neuropathy. 2. Shingles. - Recurring rash on the shoulder, characterized by itching and blistering, consistent with shingles. - Rash has been present for a couple of years, with scarring noted. - An antiviral medication will be prescribed. - Advised to start the medication immediately upon experiencing itching to prevent the rash from worsening. 3. Health maintenance. - Up-to-date with pneumonia vaccine. - Tetanus, shingles, and RSV vaccines are recommended and can be administered at the pharmacy. - Influenza vaccine is due in the fall and can be administered here. Assessment & Plan Peripheral polyneuropathy Orders: Vitamin B12; Future Protein electrophoresis, serum; Future Protein electrophoresis, urine; Future TSH W/REFLEX TO FT4; Future JOANIE; Future Sedimentation rate, automated; Future Methylmalonic acid, serum; Future Lyme disease, PCR; Future Hepatitis panel, acute; Future Wellness examination Discussed height, weight and BMI. Encouraged healthy diet and regular exercise. Discussed vaccines and encouraged yearly flu shot. Annual eye and dental exam. Vaccines and cancer screens reviewed forcompleteness. Screen labs as needed. Assessed needs for tools in the home for independence. Living will and durable power of claims analyst reviewed. Updated patient problem list and reviewed all current medications with patient. Given time to ask questions. Herpes simplex Will give an antiviral to start at the first sign of itching, burning, or rash. Orders: valACYclovir (Valtrex) 1 g tablet; Take 1 tablet (1,000 mg) by mouth in the morning and 1 tablet (1,000 mg) in the evening and 1 tablet (1,000 mg) before bedtime. Do all this for 7 days. Essential hypertension (CMS/HCC) Well controlled on medications. Mixed hyperlipidemia (CMS/HCC) Continue lipitor. Acquired hypothyroidism (CMS/HCC) Controlled on synthroid. Spinal stenosis of lumbar region, unspecified whether neurogenic claudication present Scheduled to see neurosurgeon. We reviewed prior scans and EMG. Will gt other neuropathy labs. Assessment/Plan documented in this encounter Plan of Treatment Scheduled Orders Name Type Priority Associated Diagnoses Orde r Schedule Protein electrophoresis, urine Lab Routine Peripheral polyneuropathy Expected: 2024 (Approximate), Expires: 2025 Lyme disease, PCR Lab Routine Peripheral polyneuropathy Expected: 2024 (Approximate), Expires: 2025 documented as of this encounter Procedures Procedure Name Priority Date/Time Associated Diagnosis Comments TEST AUTHORIZATION Routine 2024 10 :41 AM EDT ANTINUCLEAR ANTIBODIES TITER AND PATTERN Routine 2024 10:41 AM EDT TSH W/REFLEX TO FT4 Routine 2024 1 0:41 AM EDT Peripheral polyneuropathy METHYLMALONIC ACID, SERUM Routine 2024 10:41 AM EDT Peripheral polyneuropathy HEPATITIS PANEL, ACUTE Routine 10:41 AM EDT Peripheral polyneuropathy SED RATE BY MODIFIED WESTERGREN Routine 2024 10:41 AM EDT Peripheral polyneuropathy IMMUNOFIXATION ELECTROPHORESIS Routine 2024 10:41 AM EDT JOANIE SCREEN W/REFLEX Routine 2024 1 0:41 AM EDT Peripheral polyneuropathy PROTEIN ELECTROPHORESIS, SERUM Routine 2024 10:41 AM EDT Peripheral polyneuropathy VITAMIN B12 Routine 2024 10:41 AM EDT Peripheral polyneuropathy documented in this encounter Results * TEST AUTHORIZATION (2024 10:41 AM EDT) TEST NAME: IMMUNOFIXAT ION, SERUM [facility] TEST CODE: 549SB [facility] CLIENT CONTACT: DEAN QURESHI [facility] REPORT ALWAYS MESSAGE SIGNATURE [facility] Comment: The laboratory testing on this patient was verbally requested or confirmed by the ordering physician or his or her authorized freight representative after contact with an employee of [employer]. Federal regulations require that we maintain on file written authorization for all laboratory testing. Accordingly we are asking that the ordering physician or his or her authorized freight representative sign a copy of this report and promptly return it to the client finance analyst. Signature: COMMENT [facility] Comment: Please have the ordering physician or his or her authorized freight representative sign a copy of this report and promptly return it by faxing it to: [phone] or by returning the form to your circuit court clerk. 2024 10:4 1 AM EDT 2024 10:43 AM EDT Narrative [facility] - 01/10/2025 11:20 AM EDT MULTIPLE TESTING PRIORITIES; ROUTINE TESTING TO FOLLOW. Resulting Agency Comment Performing Organization Information Site ID: QPT Name: [facility] Address: [address] [place] [address], [address] [place] [phone] Director: Juan Alberto Harrell MD us Cynthia Hernandez MD LAB BLOOD ORDERABLES Final Re sult [facility] * Immunofixation electrophoresis (2024 10:41 AM EDT) SWATI INTERPRETATION [facility] Comment:IgG lambda monoclona l band present. 2024 10:4 1 AM EDT 2024 10:43 AM EDT Narrative [facility] - 01/10/2025 11:20 AM EDT MULTIPLE TESTING PRIORITIES; ROUTINE TESTING TO FOLLOW. Resulting Agency Comment Performing Organization Information Site ID: QPT Name: [facility] Address: [address] [place] [address], [address] [place] [phone] Director: Juan Alberto Harrell MD us Cynthia Hernandez MD LAB BLOOD ORDERABLES Final Re sult Performing Organization Address [facility] de Phone Number [facility] * (ABNORMAL) ANTINUCLEAR ANTIBODIES TITER AND PATTERN (2024 10:41 AM EDT) JOANIE TITER 1:40(H) titer [facility] Comment: A low level JOANIE titer may be present in pre-clinical autoimmune diseases and normal individuals. Reference Range <1:40 Negative 1:40-1:80 Low Antibody Level >1:80 Elevated Antibody Level JOANIE PATTERN Nuclear, Homogeneou s(A) [facility] Comment: Homogeneous pattern is associated with systemic lupus erythematosus (SLE), drug-induced lupus and juvenile idiopathic arthritis. AC-1: Homogeneous International Consensus on JOANIE Patterns (https://doi.org/10.1515/nlsl-0294-9330) 2024 10:4 1 AM EDT 2024 10:43 AM EDT Narrative [facility] - 01/10/2025 11:20 AM EDT MULTIPLE TESTING PRIORITIES; ROUTINE TESTING TO FOLLOW. Resulting Agency Comment Performing Organization Information Site ID: QPT Name: [facility] Address: [address] [place] [address], [address] [place] [phone] Director: Juan Alberto Harrell MD Cynthia Hernandez MD LAB BLOOD ORDERABLES Final Re sult Performing Organization Address [facility] de Phone Number [facility] * Hepatitis panel, acute (2024 10:41 AM EDT) HEPATITIS A IGM NON-REACTI VE NON-REACT ASAEL [facility] Comment: For additional information, please refer to http://[email or web address].ClearLine Mobile/faq/BEV403 (This link is being provided for informational/ educational purposes only.) HEPATITIS B SURFACE ANTIGEN NON-REACTI VE NON-REACT ASAEL [facility] Comment: For additional information, please refer to http://[email or web address].Banter!.Whisper/faq/URB513 (This link is being provided for informational/ educational purposes only.) HEPATITIS B CORE ANTIBODY (IGM) NON-REACTI VE NON-REACT ASAEL [facility] Comment: For additional information, please refer to http://[email or web address].ClearLine Mobile/faq/IGV939 (This link is being provided for informational/ educational purposes only.) HEPATITIS C ANTIBODY NON-REACTI VE NON-REACT ASAEL [facility] Comment: HCV antibody was non-reactive. There is no laboratory evidence of HCV infection. In most cases, no further action is required. However, if recent HCV exposure is suspected, a test for HCV RNA (test code 01560) is suggested. For additional information please refer to http://Mobile2Me.ClearLine Mobile/faq/EZV84r3 (This link is being provided for informational/ educational purposes only.) Blood Venous blood specimen / Unknown 2024 10:41 AM EDT 2024 10:43 AM EDT Narrative [facility] - 01/10/2025 11:20 AM EDT MULTIPLE TESTING PRIORITIES; ROUTINE TESTING TO FOLLOW. Resulting Agency Comment Performing Organization Information Site ID: QPT Name: [facility] Address: [address] [place] [address], [address] [place] [phone] Director: Juan Alberto Harrell MD us Cynthia Hernandez MD LAB BLOOD ORDERABLES Final Re sult [facility] * Methylmalonic acid, serum (2024 10:41 AM EDT) METHYLMALONIC ACID 141 85 - 423 nmol/L [facility] Comment: See Note 1 Serum methylmalonic acid (MMA) levels are used to diagnose and monitor several rare inborn errors of metabolism, including methylmalonic aciduria. The enzymatic conversion of MMA to succinic acid requires vitamin B12 (adenosyl-cobalamin) as a cofactor. Serum MMA levels are also used for assessing functional vitamin B12 deficiency. Vitamin B12 is essential for neurodevelopment, particularly early in . Undiagnosed maternal vitamin B12 deficiency may be associated with adverse / outcomes, such as neural tube defects and intrauterine growth restriction. [employer] utilized Multi-Modal Decomposition (MMD) analysis to establish first and second trimester-specific MMA reference intervals in , as given below: MMA, First trimester (<13 wks gestation): 58-167 nmol/L MMA, Second trimester (13-23 wks gestation): 63-241 nmol/L Note 1 This test was developed and its analytical performance characteristics have been determined by [employer]. It has not been cleared or approved by the FDA. This assay has been validated pursuant to the CLIA regulations and is used for clinical purposes. Blood Venous blood specimen / Unknown 2024 10:41 AM EDT 2024 10:43 AM EDT Narrative [facility] - 01/10/2025 11:20 AM EDT MULTIPLE TESTING PRIORITIES; ROUTINE TESTING TO FOLLOW. Resulting Agency Comment Performing Organization Information Site ID: QPT Name: [facility] Address: [address] [place] [address], [address] [place] [phone] Director: Juan Alberto Harrell MD Cynthia Hernandez MD LAB BLOOD ORDERABLES Final Re sult Performing Organization Address [facility] de Phone Number [facility] * Sedimentation rate, automated (2024 10:41 AM EDT) Pathologist [facility] SED RATE BY MODIFIED ASHELY 9 < OR = 30 mm/h [facility] Blood Venous blood specimen / Unknown 2024 10:41 AM EDT 2024 10:43 AM EDT Narrative [facility] - 01/10/2025 11:20 AM EDT MULTIPLE TESTING PRIORITIES; ROUTINE TESTING TO FOLLOW. Resulting Agency Comment Performing Organization Information Site ID: QPT Name: [facility] Address: [address] [place] [address], [address] [place] [phone] Director: Juan Alberto Harrell MD Cynthia Hernandez MD LAB BLOOD ORDERABLES Final Re sult Performing Organization Address [facility] de Phone Number [facility] * (ABNORMAL) JOANIE (2024 10:41 AM EDT) JOANIE SCREEN, IFA POSITIVE( A) NEGATIVE [facility] Comment: JOANIE IFA is a first line screen for detecting the presence of up to approximately 150 autoantibodies in various autoimmune diseases. A positive JOANIE IFA result is suggestive of autoimmune disease and reflexes to titer and pattern. Further laboratory testing may be considered if clinically indicated. For additional information, please refer to http://education.Weeks Communications.Whisper/faq/HVR290 (This link is being provided for informational/ educational purposes only.) Blood Venous blood specimen / Unknown 2024 10:41 AM EDT 2024 10:43 AM EDT Narrative [facility] - 01/10/2025 11:20 AM EDT MULTIPLE TESTING PRIORITIES; ROUTINE TESTING TO FOLLOW. Resulting Agency Comment Performing Organization Information Site ID: QPT Name: [facility] Address: [address] [place] [address], [address] [place] [phone] Director: Juan Alberto Harrell MD us Cynthia Hernandez MD LAB BLOOD ORDERABLES Final Re sult Performing Organization Address [facility] de Phone Number [facility] * TSH W/REFLEX TO FT4 (2024 10:41 AM EDT) TSH W/REFLEX TO FT4 1.61 0.40 - 4.50 mIU/L [facility] 2024 10:4 1 AM EDT 2024 10:43 AM EDT Narrative [facility] - 01/10/2025 11:20 AM EDT MULTIPLE TESTING PRIORITIES; ROUTINE TESTING TO FOLLOW. Resulting Agency Comment Performing Organization Information Site ID: QPT Name: [facility] Address: [address] [place] [address], [address] [place] [phone] Director: Juan Alberto Harrell MD us Cynthia Hernandez MD LAB BLOOD ORDERABLES Final Re sult Performing Organization Address [facility] Co de Phone Number [facility] * (ABNORMAL) Protein electrophoresis, serum (2024 10:41 AM EDT) PROTEIN, TOTAL 6.3 6.1 - 8.1 g/dL [facility] ALBUMIN 3.8 3.8 - 4.8 g/dL [facility] ALPHA 1 GLOBULIN 0.3 0.2 - 0.3 g/dL [facility] ALPHA 2 GLOBULIN 0.8 0.5 - 0.9 g/dL [facility] BETA 1 GLOBULIN 0.4 0.4 - 0.6 g/dL [facility] BETA 2 GLOBULIN 0.3 0.2 - 0.5 g/dL [facility] GAMMA GLOBULIN 0.7(L) 0.8 - 1.7 g/dL [facility] ABNORMAL PROTEIN BAND 1 0.2(H) NONE DETECTED g/dL [facility] INTERPRETATION [facility] Comment: Evaluation reveals a restricted band (M-spike) migrating in the gamma globulin region. If not already requested, Immunofixation should be considered. Evaluation reveals a faint restricted band (M-spike) migrating in the gamma globulin region. If not already requested, Immunofixation should be considered. Blood Venous blood specimen / Unknown 2024 10:41 AM EDT 2024 10:43 AM EDT Narrative [facility] - 01/10/2025 11:20 AM EDT MULTIPLE TESTING PRIORITIES; ROUTINE TESTING TO FOLLOW. Resulting Agency Comment Performing Organization Information Site ID: QPT Name: [facility] Address: [address] [place] [address], [address] [place] [phone] Director: Juan Alberto Harrell MD Cynthia Hernandez MD LAB BLOOD ORDERABLES Final Re sult [facility] * Vitamin B12 (2024 10:41 AM EDT) [facility] VITAMIN B12 217 200 - 1,100 pg/mL [facility] Comment: Please Note: Although the reference range for vitamin B12 is 200-1100 pg/mL, it has been reported that between 5 and 10% of patients with values between 200 and 400 pg/mL may experience neuropsychiatric and hematologic abnormalities due to occult B12 deficiency; less than 1% of patients with values above 400 pg/mL will have symptoms. Blood Venous blood specimen / Unknown 2024 10:41 AM EDT 2024 10:43 AM EDT Narrative [facility] - 01/10/2025 11:20 AM EDT MULTIPLE TESTING PRIORITIES; ROUTINE TESTING TO FOLLOW. Resulting Agency Comment Performing Organization Information Site ID: QPT Name: [facility] Address: [address] [place] [address], [address] [place] [phone] Director: Juan Alberto Harrell MD Cynthia Hernandez MD LAB BLOOD ORDERABLES Final Re sult [facility] documented in this encounter Visit Diagnoses Diagnosis Peripheral polyneuropathy- Primary Wellness examination Herpes simplex Herpes simplex without mention of complication Essential hypertension (CMS/HCC) Unspecified essential hypertension Mixed hyperlipidemia (CMS/HCC) Mixed hyperlipidemia Acquired hypothyroidism (CMS/HCC) Unspecified hypothyroidism Spinal stenosis of lumbar region, unspecified whether neurogenic claudication present documented in this encounter Additional Health Concerns Assessment Noted Time PHQ-9 Depression Total Score: 0 12/30/19 25 9:00 AM EDT documented as of this encounter Care Teams Accounts Payable Assistant Relationship Specialty Start Date End Date Cynthia Hernandez MD [address] [place], [place] [phone] PCP - [employer] 08/09/20 Cynthia Hernandez MD [address] [facility] [place], [place] [phone] PCP - General Family Medicine 01/18/24 Libby Ward NP [address] [facility] [place], [place] [phone] Nurse Practitioner Family Medicine 02/05/23 documented as of this encounter
--- OUTSIDE RECORDS SUMMARY | 2024-12-29 10:00 | XMS_ITS | Encounter Summary ---
Author Organization [facility] Address [address] [facility] [place] [address] Care Team Providers Care Logistics Program Manager Name Role Phone Cynthia Hernandez MD Unavailable Libby Ward NP Unavailable [phone] Cynthia Hernandez MD Primary Care Provider [phone] Reason for Visit * Reason Comments Medicare Annual Wellness Visit Subsequen t Encounter Details Date Type Department Care Team (Latest Contact Info) Description 2024 10:00 AM EDT Office Visit [facility] [address] [place] [address] Cynthia Hernandez MD [address] [place] [address] Peripheral polyneuropathy (Primary Dx); Wellness [...] -2 Score 0 2024 9:00 AM EDT Lny Calhoun MA * Question Answer Date of [...] by direct observation Three Word Registration: Banana, Bow, Chair Clock Drawing: Normal Clock - 2 [...] stenosis. A consultation with a neurosurgeon in [place] is being considered to explore potential interventions [...] helps. - Consultation with a neurosurgeon in [place] is planned to explore surgical options. - [...] independence. Living will and durable power of workers compensation attorney reviewed. Updated patient problem list and reviewed [...] ordering physician or his or her authorized renewals representative after contact with an employee of [employer]. Federal regulations require that we maintain on file written authorization for all laboratory testing. Accordingly we are asking that the ordering physician or his or her authorized renewals representative sign a copy of this report and promptly return it to the client care coordinator. Signature: COMMENT [facility] Comment: Please have the ordering physician or his or her authorized renewals representative sign a copy of this report and promptly return it by faxing it to: [phone] or by returning the form to your aerodynamic consultant. 2024 10:4 1 AM EDT 2024 10:43 AM EDT Narrative [facility] - 01/10/2025 11:20 AM EDT MULTIPLE TESTING PRIORITIES; ROUTINE TESTING TO FOLLOW. Resulting Agency Comment Performing Organization Information Site ID: QPT Name: [employer] [facility] [facility] Address: [address] [place] [address], [address] [place] [phone] Director: Juan Alberto Harrell MD us yCnthia Hernandez MD LAB BLOOD ORDERABLES Final Re sult [facility] * Immunofixation electrophoresis (2024 10:41 AM EDT) SWATI INTERPRETATION [facility] Comment:IgG lambda monoclona l band present. 2024 10:4 1 AM EDT 2024 10:43 AM EDT Narrative [facility] - 01/10/2025 11:20 AM EDT MULTIPLE TESTING PRIORITIES; ROUTINE TESTING TO FOLLOW. Resulting Agency Comment Performing Organization Information Site ID: QPT Name: [employer] [facility] [facility] Address: [address] [place] [address], [address] [place] [phone] Director: Juan Alberto Harrell MD us Cynthia Hernandez MD LAB BLOOD ORDERABLES Final Re sult Performing Organization Address [facility] de Phone Number [facility] * (ABNORMAL) ANTINUCLEAR [...] AC-1: Homogeneous International Consensus on JOANIE Patterns (https://doi.[email or web address]) 2024 10:4 1 AM EDT 2024 10:43 AM EDT Narrative [facility] - 01/10/2025 11:20 AM EDT MULTIPLE TESTING PRIORITIES; ROUTINE TESTING TO FOLLOW. Resulting Agency Comment Performing Organization Information Site ID: QPT Name: [employer] [facility] [facility] Address: [address] [place] [address], [address] [place] [phone] Director: Juan Alberto Harrell MD Cynthia Hernandez MD LAB BLOOD ORDERABLES Final Re sult Performing Organization Address [facility] de Phone Number QUEST * Hepatitis panel, acute (2024 10:41 AM EDT) HEPATITIS A IGM NON-REACTI VE NON-REACT ASAEL [facility] Comment: For additional information, please refer to http://Emotify.E.M.A.R.C./faq/VRA361 (This link is being provided for informational/ educational purposes only.) HEPATITIS B SURFACE ANTIGEN NON-REACTI VE NON-REACT ASAEL [facility] Comment: For additional information, please refer to http://Emotify.GenArts.Admazely/faq/KZN880 (This link is being provided for informational/ educational purposes only.) HEPATITIS B CORE ANTIBODY (IGM) NON-REACTI VE NON-REACT ASAEL [facility] Comment: For additional information, please refer to http://Emotify.E.M.A.R.C./faq/KQE423 (This link is being provided for informational/ educational purposes only.) HEPATITIS C ANTIBODY NON-REACTI VE NON-REACT ASAEL [facility] Comment: HCV antibody was non-reactive. There is no laboratory evidence of HCV infection. In most cases, no further action is required. However, if recent HCV exposure is suspected, a test for HCV RNA (test code 10781) is suggested. For additional information please refer to http://Emotify.E.M.A.R.C./faq/NNG73s8 (This link is being provided for informational/ educational purposes only.) Blood Venous blood specimen / Unknown 2024 10:41 AM EDT 2024 10:43 AM EDT Narrative QUEST - 01/10/2025 11:20 AM EDT MULTIPLE TESTING PRIORITIES; ROUTINE TESTING TO FOLLOW. Resulting Agency Comment Performing Organization Information Site ID: QPT Name: [employer] [facility] [facility] Address: [address] [place] [address], [address] [place] [phone] Director: Juan Alberto Harrell MD us Cynthia [...] neural tube defects and intrauterine growth restriction. [employer] utilized Multi-Modal Decomposition (MMD) analysis to establish first and second trimester-specific MMA reference intervals in , as given below: MMA, First trimester (<13 wks gestation): 58-167 nmol/L MMA, Second trimester (13-23 wks gestation): 63-241 nmol/L Note 1 This test was developed and its analytical performance characteristics have been determined by [employer]. It has not been cleared or approved [...] Performing Organization Information Site ID: QPT Name: [employer] [facility] Address: [address] [place] [address], [address] [place] [phone] Director: Juan Alberto Harrell MD Cynthia Hernandez MD LAB BLOOD ORDERABLES Final Re sult Performing Organization Address [facility] de Phone Number QUEST * Sedimentation rate, automated (2024 10:41 AM EDT) Pathologist [facility] SED RATE BY MODIFIED ASHLEY 9 < OR = 30 mm/h QUEST Blood Venous blood specimen / Unknown 2024 10:41 AM EDT 2024 10:43 AM EDT Narrative QUEST - 01/10/2025 11:20 AM EDT MULTIPLE TESTING PRIORITIES; ROUTINE TESTING TO FOLLOW. Resulting Agency Comment Performing Organization Information Site ID: QPT Name: [facility] [facility] Address: [address] [place] [address], [address] [place] [phone] Director: Juan Alberto Harrell MD Cynthia Hernandez MD LAB BLOOD ORDERABLES Final Re sult Performing Organization Address [facility] de Phone Number QUEST * (ABNORMAL) JOANIE [...] indicated. For additional information, please refer to http://education.Aprius.Admazely/faq/ZIJ530 (This link is being provided for informational/ educational purposes only.) Blood Venous blood specimen / Unknown 2024 10:41 AM EDT 2024 10:43 AM EDT Narrative QUEST - 01/10/2025 11:20 AM EDT MULTIPLE TESTING PRIORITIES; ROUTINE TESTING TO FOLLOW. Resulting Agency Comment Performing Organization Information Site ID: QPT Name: [employer] [facility] Address: [address] [place] [address], [address] [place] [phone] Director: Juan Alberto Harrell MD us Cynthia Hernandez MD LAB BLOOD ORDERABLES Final Re sult Performing Organization Address [facility] de Phone Number QUEST * TSH W/REFLEX TO FT4 (2024 10:41 AM EDT) TSH W/REFLEX TO FT4 1.61 0.40 - 4.50 mIU/L [facility]ST 2024 10:4 1 AM EDT 2024 10:43 AM EDT Narrative [facility]ST - 01/10/2025 11:20 AM EDT MULTIPLE TESTING PRIORITIES; ROUTINE TESTING TO FOLLOW. Resulting Agency Comment Performing Organization Information Site ID: QPT Name: [facility] [facility] Address: [address] [place] [address], [address] [place] [phone] Director: Juan Alberto Harrell MD us Cynthia Hernandez MD LAB BLOOD ORDERABLES Final Re sult Performing Organization Address [facility] Co de Phone Number QUEST * (ABNORMAL) [...] Performing Organization Information Site ID: QPT Name: [facility] [employer] [facility] Address: [address] [place] [address], [address] [place] [phone] Director: Juan Alberto Harrell MD Cynthia Hernandez MD LAB BLOOD ORDERABLES Final Re sult QUEST * Vitamin B12 (2024 10:41 AM EDT) [facility] [address] VITAMIN B12 217 200 - 1,100 pg/mL [...] Performing Organization Information Site ID: QPT Name: [employer] [facility] Address: [address] [place] [address], [address] [place] [phone] Director: Juan Alberto Harrell MD Cynthia Hernandez [...] documented as of this encounter Care Teams Logistics Program Manager Relationship Specialty Start Date End Date Cynthia Hernandez MD [address] [place], [place] [phone] PCP - [employer] 08/09/20 Cynthia Hernandez MD [address] [facility] [address] [place], [place] [phone] PCP - General Family Medicine 01/18/24 Libby Ward NP [address] [facility] [address] [place], [place] [phone] Nurse Practitioner Family Medicine 02/05/23 documented as of this encounter
--- OUTSIDE RECORDS SUMMARY | 2025-01-02 11:30 | XMS_ITS | Encounter Summary ---
Author Organization [facility] Address [address] [place] [address] Care Team Providers Care Supervisor Shuttle Veneering Name Role Phone Cynthia Hernandez MD Unavailable [phone] Libby Ward NP Unavailable [phone] Cynthia Hernandez MD Primary Care Provider [phone] Reason for Visit * Rehabilitation - Outpatient (Routine) - Authorized Specialty Diagnoses / Procedures Referred By Suni conde Referred To Contact Physical Therapy Diagnoses Spinal stenosis, lumbar region with neurogenic claudication Procedures [place] PHYSICAL THERAPY EVALUATION LOW COMPLEX 20 MINS [place] OFFICE/OUTPATIENT NEW HIGH MDM 60 MINUTES Kulwant García MD [address] [place] [address] Phone: tel: fax: Mayur Agarwal, PT [address] [facility] [address] [place] [address] Phone: tel: fax: Referral ID Status Reason Start Date Expiration Date V isits Requested Visits Authorized [id number] Authorized 12/01/2024 08/08/2025 99 99 Encounter Details Date Type Department Care Team (Late st Contact Info) Description 01/02/2025 11:30 AM EDT Treatment [facility] [address] [facility] [address] [place] [address] Mayur Agarwal, PT [address] [facility] [address] [place] [address] Lumbar paraspinal muscle spasm (Primary Dx); Weakness [...] to be instructed in home exercise program. Marine Radio Installer And Servicer Goals: To be met in 10 weeks [...] Time PHQ-9 Depression Total Score: 0 12/30/19 9:00 AM EDT documented as of this encounter Care Teams Supervisor Shuttle Veneering Relationship Specialty Start Date End Date Cynthia Hernandez MD [address] [facility] [place] [address] PCP - Aetna 08/09/20 Cynthia Hernandez MD [address] [facility] [place] [address] PCP - General Family Medicine 01/18/24 Libby Ward NP [address] [place] [address] Nurse Practitioner Family Medicine 02/05/23 documented as of this encounter
--- OUTSIDE RECORDS SUMMARY | 2025-01-02 11:30 | XMS_ITS | Encounter Summary ---
Author Organization [facility] Address [address] [facility] [place] [address] Care Team Providers Care Ceramics Engineer Name Role Phone Cynthia Hernandez MD Unavailable [phone] Libby Ward NP Unavailable [phone] Cynthia Hernandez MD Primary Care Provider [phone] Reason for Visit * Rehabilitation - Outpatient (Routine) - Authorized Specialty Diagnoses / Procedures Referred By Suni conde Referred To Contact Physical Therapy Diagnoses Spinal stenosis, lumbar region with neurogenic claudication Procedures [place] PHYSICAL THERAPY EVALUATION LOW COMPLEX 20 MINS [place] OFFICE/OUTPATIENT NEW HIGH MDM 60 MINUTES Kulwant García MD [address] [place] [address] Phone: tel: fax: Mayur Agarwal, PT [address] [facility] [address] [place] [address] Phone: tel: fax: Referral ID Status Reason Start Date Expiration Date V isits Requested Visits Authorized [id number] Authorized 12/01/2024 08/08/2025 99 99 Encounter Details Date Type Department Care Team (Late st Contact Info) Description 01/02/2025 11:30 AM EDT Treatment [facility] [address] [facility] [address] [place] [address] Mayur Agarwal, PT [address] [facility] [address] [place] [address] Lumbar paraspinal muscle spasm (Primary Dx); Weakness [...] to be instructed in home exercise program. Oxygen Equipment Technician Goals: To be met in 10 weeks [...] documented as of this encounter Care Teams Ceramics Engineer Relationship Specialty Start Date End Date Cynthia Hernandez MD [address] [facility] [place] [address] PCP - Aetna 08/09/20 Cynthia Hernandez MD [address] [facility] [place] [address] PCP - General Family Medicine 01/18/24 Libby Ward NP [address] [place] [address] Nurse Practitioner Family Medicine 02/05/23 documented as of this encounter
--- OUTSIDE RECORDS SUMMARY | 2025-01-04 12:00 | XMS_ITS | Encounter Summary ---
Author Organization [facility] Address [address] [facility] [place] [address] Care Team Providers Care Development Mgr Name Role Phone Cynthia Hernandez MD Unavailable [phone] Libby Ward NP Unavailable [phone] Cynthia Hernandez MD Primary Care Provider [phone] Reason for Visit * Rehabilitation - Outpatient (Routine) - Authorized Specialty Diagnoses / Procedures Referred By Suni conde Referred To Contact Physical Therapy Diagnoses Spinal stenosis, lumbar region with neurogenic claudication Procedures [place] PHYSICAL THERAPY EVALUATION LOW COMPLEX 20 MINS [place] OFFICE/OUTPATIENT NEW HIGH MDM 60 MINUTES Kulwant García MD [address] [place] [address] Phone: tel: fax: Mayur Agarwal, PT [address] [facility] [address] [place] [address] Phone: tel: fax: Referral ID Status Reason Start Date Expiration Date V isits Requested Visits Authorized [id number] Authorized 12/01/2024 08/08/2025 99 99 Encounter Details Date Type Department Care Team (Late st Contact Info) Description 01/04/2025 12:00 PM EDT Treatment [facility] [address] [facility] [address] [place] [address] Clara Echeverria, OFFICER CAPTAIN Lumbar paraspinal muscle spasm (Primary Dx); Weakness [...] Progress Notes * Clara Echeverria, THELMA - 01/04/2025 12:00 PM EDT Images from the original note were not included. Physical Therapy Treatment Visit Patient Name: Dominique Liz Today's Date: 01/04/2025 Encounter Diagnoses Name Primary? Lumbar paraspinal muscle spasm Yes Weakness of both lower extremities Visit number: 8 Timed Code Treatment: 25 minutes Total Treatment Time: 61 minutes Time In: 12:00 PM Time Out: 12:51 PM History: Pt. Presents to PT with [...] Precautions: fall risk Subjective: reports bad day, frustrated with lack of improvement and continued pain Pain: 7/10 LB Objective: PT Evaluation (12/07/24) [...] and decrease pain Therapeutic Exercise: (16 minutes unsupervised ) guided pt through ther and flex exercise per grid;to improve lumbar, core, LE functional Strength, Endurance, [...] muscle soreness Assessment: Pt has participated in 8 PT session with start of POC on [...] to be instructed in home exercise program. Burnt Lime Drawer Goals: To be met in 10 weeks [...] Date: Cosigned by Mayur Agarwal, PT at 01/04/2025 5:07 PM EDT documented in this encounter Plan of Treatment Not on file documented as of this encounter Visit Diagnoses Diagnosis Lumbar paraspinal muscle spasm- Primary Other symptoms referable to back Weakness of both lower extremities documented in this encounter Additional Health Concerns Assessment Noted Time PHQ-9 Depression Total Score: 0 12/30/19 25 9:00 AM EDT documented as of this encounter Care Teams Development Mgr Relationship Specialty Start Date End Date Cynthia Hernandez MD [address] [place] [address] PCP - Aetna 08/09/20 Cynthia Hernandez MD [address] [place] [address] PCP - General Family Medicine 01/18/24 Libby Ward NP [address] [place] [address] Nurse Practitioner Family Medicine 02/05/23 documented as of this encounter
--- OUTSIDE RECORDS SUMMARY | 2025-01-04 12:00 | XMS_ITS | Encounter Summary ---
Author Organization [facility] Address [address] [facility] [place] [address] Care Team Providers Care Bologna Lacer Name Role Phone Cynthia Hernandez MD Unavailable [phone] Libby Ward NP Unavailable [phone] Cynhtia Hernandez MD Primary Care Provider [phone] Reason for Visit * Rehabilitation - Outpatient (Routine) - Authorized Specialty Diagnoses / Procedures Referred By Suni conde Referred To Contact Physical Therapy Diagnoses Spinal stenosis, lumbar region with neurogenic claudication Procedures MD PHYSICAL THERAPY EVALUATION LOW COMPLEX 20 MINS MD OFFICE/OUTPATIENT NEW HIGH MDM 60 MINUTES Kulwant García MD [address] [place] [address] Phone: tel: fax: Mayur Agarwal, PT [address] [facility] [address] [place] [address] Phone: tel: fax: Referral ID Status Reason Start Date Expiration Date V isits Requested Visits Authorized [id number] Authorized 12/01/2024 08/08/2025 99 99 Encounter Details Date Type Department Care Team (Late st Contact Info) Description 01/04/2025 12:00 PM EDT Treatment [facility] [address] [facility] [address] [place] [address] Clara Echeverria, ORGANIC CHEMIST Lumbar paraspinal muscle spasm (Primary Dx); Weakness [...] to be instructed in home exercise program. Pace Analyst Goals: To be met in 10 weeks [...] documented as of this encounter Care Teams Bologna Lacer Relationship Specialty Start Date End Date Cynthia Hernandez MD [address] [place] [address] PCP - Aetna 08/09/20 Cynthia Hernandez MD [address] [place] [address] PCP - General Family Medicine 01/18/24 Libby Ward NP [address] [place] [address] Nurse Practitioner Family Medicine 02/05/23 documented as of this encounter
--- OUTSIDE RECORDS SUMMARY | 2025-01-08 06:00 | XMS_ITS ---
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 No Points 0 Interpretation Negative Tobacco Control (Standard) Question Answer Notes Tobacco use: Nonsmoker Vital Signs Height 5'4 in 01/08/2025 Weight 133 lbs 01/08/2025 BMI 22.83 01/08/2025 Encounters Encounter Location Date Provider Diagnosis [facility] Office [address] [place] [address] [place] [address] 01/08/2025 Charles Hendricks Right hand pain M79.641 ; Other closed fracture of distal end of left radius, initial encounter S52.592A ; Contusion of right hand, initial encounter S60.221A and Other closed fracture of distal end of left ulna, initial encounter S52.692A Assessments Encounter Date Diagnosis (ICD Code) Assessment Notes Treatment Notes Treatment Clinical Notes Section Notes 01/08/2025 Right hand pain (ICD-10 - M79.641) 01/08/2025 Other closed fracture of distal end of left radius, initial encounter (ICD-10 - S52.592A) 01/08/2025 Contusion of right hand, initial encounter (ICD-10 - S60.221A) 01/08/2025 Other closed fracture of distal end of left ulna, initial encounter (ICD-10 - S52.692A) 01/08/2025 Other Treatment options were discussed with the patient. I have discussed that the only way to improve the slight deformity would be through surgery. I have recommended excepting the deformity and nonoperative treatment which she is in agreement with this plan. She was placed in a short arm cast today in clinic. She will follow-up in 1 week to repeat x-rays in the cast and reassess her progress. we will treat for right hand contusion. Import medication Plan Of Treatment Treatment Notes Assessment Notes Other Treatment options were discussed with the patient. I have discussed that the only way to improve the slight deformity would be through surgery. I have recommended excepting the deformity and nonoperative treatment which she is in agreement with this plan. She was placed in a short arm cast today in clinic. She will follow-up in 1 week to repeat x-rays in the cast and reassess her progress. we will treat for right hand contusion. Import medication Next Appt Details Follow Up: 1 Week, Reason: Provider Name:Charles Neely and, 01/15/2025 09:00:00 AM, [address] [facility], [address], [place], [address], Procedure Notes * Category Sub-Category Detail Notes Casting Short arm cast (SAC): Short arm cast was applied in the usual fashion to the left arm. Cast was applied using approximately 18 inches of stockinet, two 3 in. rolls of padding, and two 3 in. rolls of fiberglass. Casting precautions were explained. The patient was told to elevate the arm when possible, do range of motion exercises, perform neurovascular checks, and keep the cast dry. If there are any problems with the cast fitting, the patient is instructed to return to the office or go to the emergency room after regular office hours Progress Notes * YAMILE MCCARTHYOB: 4 (79 yo F)Acc No.[id number]:01/08/2025 Patient: Tian ELPIDIOPANKAJ GALLAGHERANNE Provider: Hailey Hendricks MD :1945 A ge:79 Y S ex:Female Date:01/08/2025 Address:[address] [id number] Subjective: * Chief Complaints: * 1 . [facility] ER LEFT FOREARM FX. * HPI: G eneral Follow Up Information: Patient presents today for a new injury. Previously I treated for her right hip fracture. He fell over this past week sustaining a left distal radius and ulnar styloid fracture. She was splinted and referred here for evaluation. She denies having pain. G eneral Info per Patient Report: Have you seen another doctor in this practice? N o. S iban affected is L eft. J oint or body part affected is a rm, wrist/hand. D ate of Injury: . S tart of Pain/Cause of Injury f all. P ain occurred i njury. W ork related: N o. M otor vehicle accident: N o. H ave you been seen by a Dentist in the last year? Y es. D o you have any dental problems? N o. * ROS: H ematologic: Bruising Y es. C ardiovascular: Leg/Ankle Swelling Y es. N eurological: Numbness/ Tingling Yes. W eakness/ Paralysis of Feet/Hands Yes. * Medical History: H ypothyroidism, High Blood Pressure. * Surgical History: h ip replacement 10/2023. * Family History: N o Family History documented.. * Social History: E xercise regularly D o you exercise? Y es. W hat is your place of residence? W here do you live? P rivate home. A KISHORE-C (Standard) D id you have a drink containing alcohol in the past year? N o, P oints 0 , I nterpretation N egative. T obacco Control (Standard) T obacco use: N onsmoker. * Medications: N one * Allergies: N .K.D.A. Objective: * Vitals: H t: 5'4 , Wt: 133 lbs, BMI:22.83. * Examination: G eneral examination: E xamination today of her left wrist reveals her skin is intact. She has mild swelling. Fingers are minimally swollen. She has just some mild amount of deformity present on inspection of her wrist. Her right hand has some bruising and tenderness over the third metacarpal head and neck region I have recommended excepting the deformity and nonoperative treatment which she is in agreement with this plan. She was placed in a short arm cast today in clinic. She will follow-up in 1 week to repeat x-rays in the cast and reassess her progress. X -ray Imaging Studies: X -rays were reviewed and show distal radius and ulnar styloid fracture with a nondisplaced ulnar styloid and on the lateral view of the distal radius fracture has an apex volar angulation of greater than 20 degrees. 3 view x-rays of her right hand obtained today in clinic and interpreted by myself show no obvious fractures. Assessment: * Assessment: 1. O ther closed fracture of distal end of left radius, initial encounter - S52.592A (Primary)? 2. R ight hand pain - M79.641 3 . C ontusion of right hand, initial encounter - S60.221A 4 . O ther closed fracture of distal end of left ulna, initial encounter - S52.756W Plan: * Treatment: 2. O thers Notes: Treatment options were discussed with the patient. I have discussed that the only way to improve the slight deformity would be through surgery. I have recommended excepting the deformity and nonoperative treatment which she is in agreement with this plan. She was placed in a short arm cast today in clinic. She will follow-up in 1 week to repeat x-rays in the cast and reassess her progress. we will treat for right hand contusion. Import medication * Procedures: C asting: Short arm cast (SAC): S hort arm cast was applied in the usual fashion to the left arm. Cast was applied using approximately 18 inches of stockinet, two 3 in. rolls of padding, and two 3 in. rolls of fiberglass. Casting precautions were explained. The patient was told to elevate the arm when possible, do range of motion exercises, perform neurovascular checks, and keep the cast dry. If there are any problems with the cast fitting, the patient is instructed to return to the office or go to the emergency room after regular office hours . * Procedure Codes: 7 3130 X-ray Hand, 3 view, Q4010 Supplies Cast Short Arm (11+ Yrs), 23162 Application, cast; short arm, Modifiers: LT * Preventive Medicine: MIPS Measures: C MS139 Fall Risk S creening: O ne fall with injury in the past year. * Follow Up: 1 Week Forms: * Images: * Electronic signature of Ned Hendricks MD on 01/12/2025 at 07:47 AM EDT Sign off status: Pending * Provider: Hailey Hendricks MD Date: 0 01/08/2025 Generated for Abdullahi le/Jyoti/Sheldon on: 0 01/12/2025 07:47 AM EDT History and Physical Notes * HPI (History of Present Illness) Category Sub-Category Detail Notes Category Not es General Follow Up Information Patient presents tod ay for a new injury. Previously I treated for her right hip fracture. He fell over this past week sustaining a left distal radius and ulnar styloid fracture. She was splinted and referred here for evaluation. She denies having pain. General Info per Patient Report Side affected is Left Joint or body part affected is arm, wris t/hand Pain occurred injury Work related: No Motor vehicle accident: No Have you seen another doctor in this pra ctice? No Date of Injury: 01/07/25 Start of Pain/Cause of Injury fall Have you been seen by a Dentist in the l ast year? Yes Do you have any dental problems? No Examination Category Sub-Category Detail Notes Category Not es General examination Examinat ion today of her left wrist reveals her skin is intact. She has mild swelling. Fingers are minimally swollen. She has just some mild amount of deformity present on inspection of her wrist. Her right hand has some bruising and tenderness over the third metacarpal head and neck region I have recommended excepting the deformity and nonoperative treatment which she is in agreement with this plan. She was placed in a short arm cast today in clinic. She will follow-up in 1 week to repeat x-rays in the cast and reassess her progress. X-ray Imaging Studies X-rays were reviewed and show distal radius and ulnar styloid fracture with a nondisplaced ulnar styloid and on the lateral view of the distal radius fracture has an apex volar angulation of greater than 20 degrees. 3 view x-rays of her right hand obtained today in clinic and interpreted by myself show no obvious fractures
--- OUTSIDE RECORDS SUMMARY | 2025-01-08 06:00 | XMS_ITS ---
Author Organization [facility] Address [address] [place] [address] Care Team Providers Care Bit Bender Name Role Phone Charles Hendricks Unavailable [phone] Allergies No Known Allergies Results Component Value Reference Range Notes SCC- HAND 3 VIEW RIGHT [id number] Reviewed date:01/09/2025 09:43:21 AM Interpretation: Performing Lab: Notes/Report: REASON FOR VISIT [facility] ER LEFT FOREARM FX Social History [...] 01/08/2025 Encounters Encounter Location Date Provider Diagnosis [facility] Office [address] [place] [address] [place] [address] 01/08/2025 Charles Hendricks Right hand pain M79.641 [...] Name:Charles Neely and, 01/15/2025 09:00:00 AM, [address] [facility], [address], [place], [address], Procedure Notes * Category Sub-Category Detail Notes [...] * YAMILE MCCARTHYOB: 4 (79 yo F)Acc No.[id number]:01/08/2025 Patient: Tian ELPIDIOPANKAJ GALLAGHERANNE Provider: Hailey Hendricks MD :1945 A ge:79 Y S ex:Female Date:01/08/2025 Address:[address] [id number] Subjective: * Chief Complaints: * 1 . [facility] ER LEFT FOREARM FX. * HPI: [...] end of left ulna, initial encounter - S52.934L Plan: * Treatment: 2. O thers Notes: [...] Q4010 Supplies Cast Short Arm (11+ Yrs), 88031 Application, cast; short arm, Modifiers: LT * Preventive Medicine: MIPS Measures: C MS139 Fall Risk S creening: O ne fall with injury in the past year. * Follow Up: 1 Week Forms: * Images: * Electronic signature of Ned Hendricks MD on 01/11/2025 at 07:00 PM EDT Sign off status: Pending * Provider: Hailey Hendricks MD Date: 0 01/08/2025 Generated for Abdullahi le/Jyoti/Sheldon on: 0 01/11/2025 07:00 PM EDT History [...]
[2025-01-11] VITALS (7 sets, daily range): BP systolic 160–162; BP diastolic 84–96; PULSE 72–82; TEMP 36.5–36.8; O2SAT 95–99; BMI 22.8; BMI 24.9
--- OUTSIDE RECORDS SUMMARY | 2025-01-11 19:00 | XMS_ITS | Encounter Summary ---
Author Organization [facility] Address [address] [facility] [place] [address] Care Team Providers Care Cloth Classer Name Role Phone Cynthia Hernandez MD Unavailable [phone] Cynthia Hernandez MD Primary Care Provider [phone] Libby Ward NP Unavailable [phone] Mariam Glasgow MD Primary Care Provider Cynthia Hernandez MD Primary Care Provider [phone] Encounter Details Date Type Department Care Team (Late st Contact Info) Description 10/12/2023 Abstract [facility] [address] [place] [address] Cynthia Hernandez MD [address] [place] [address] Social History Tobacco Use Types [...] as of this encounter Plan of Treatment Not on file documented as of this encounter Visit Diagnoses Not on filedocumented in this encounter Additional Health Concerns Assessment Noted Time PHQ-9 Depression Total Score: 12 024 2:11 PM EST documented as of this encounter Care Teams Cloth Classer Relationship Specialty Start Date End Date Cynthia Hernandez MD [address] [facility] [place] [address] PCP - Aet 08/09/20 Cynthia Hernandez MD [address] [facility] [place] [address] PCP - General Family Medicine 02/05/23 12/28/23 Mariam Glasgow MD [address] [place] [address] PCP - General Geriatric Medicine 12/29/23 01/17/24 Cynthia Hernandez MD [address] [facility] [place] [address] PCP - General Family Medicine 01/18/24 Libby Ward NP [address] [place] [address] Nurse Practitioner Family Medicine 02/05/23 documented as of this encounter
--- OUTSIDE RECORDS SUMMARY | 2025-01-11 19:00 | XMS_ITS | Encounter Summary ---
Author Organization [facility] Address [address] [facility] [place] [address] Care Team Providers Care Software Validation Technician Name Role Phone Cynthia Hernandez MD Unavailable [phone] Libby Ward NP Unavailable [phone] Cynthia Hernandez MD Primary Care Provider [phone] Encounter Details Date Type Department Care Team (Late st Contact Info) Description 01/05/2025 Results Follow-Up [facility] [address] [place] [address] Cynthia Hernandez MD [address] [place] [address] Social History Tobacco Use Types [...] documented as of this encounter Care Teams Software Validation Technician Relationship Specialty Start Date End Date Cynthia Hernandez MD [address] [place] [address] PCP - [employer] 08/09/20 Cynthia Hernandez MD [address] [place] [address] PCP - General Family Medicine 01/18/24 Libby Ward NP [address] [place], [place] [id number] Nurse Practitioner Family Medicine 02/05/23 documented as of this encounter
--- OUTSIDE RECORDS SUMMARY | 2025-01-11 19:00 | XMS_ITS | Encounter Summary ---
Author Organization [facility] Address [address] [facility] [place] [address] Care Team Providers Care Transmitter Chief Name Role Phone Cynthia Hernandez MD Unavailable [phone] Cynthia Hernandez MD Primary Care Provider [phone] Libby Ward NP Unavailable [phone] Mariam Glasgow MD Primary Care Provider Cynthia Hernandez MD Primary Care Provider [phone] Encounter Details Date Type Department Care Team (Late st Contact Info) Description 10/13/2023 Abstract [facility] [address] [place] [address] Cynthia Hernandez MD [address] [place] [address] Social History Tobacco Use Types [...] documented as of this encounter Care Teams Transmitter Chief Relationship Specialty Start Date End Date Cynthia Hernandez MD [address] [facility] [place] [address] PCP - Aet 08/09/20 Cynthia Hernandez MD [address] [facility] [place] [address] PCP - General Family Medicine 02/05/23 12/28/23 Mariam Glasgow MD [address] [place] [address] PCP - General Geriatric Medicine 12/29/23 01/17/24 Cynthia Hernandez MD [address] [facility] [place] [address] PCP - General Family Medicine 01/18/24 Libby Ward NP [address] [place] [address] Nurse Practitioner Family Medicine 02/05/23 documented as of this encounter
--- OUTSIDE RECORDS SUMMARY | 2025-01-11 19:00 | XMS_ITS | Encounter Summary ---
Author Organization [facility] Address [address] [place] [address] Care Team Providers Care Brick Baker Name Role Phone Cynthia Hernandez MD Unavailable [phone] Libby Ward NP Unavailable [phone] Cynthia Hernandez MD Primary Care Provider [phone] Encounter Details Date Type Department Care Team [...] things Not at all 2024 9:00 AM SASHAT Lyn Calhoun MA Feeling down, depressed, or hopeless Not at all 2024 9:00 AM SASHAT Lyn Calhoun MA Patient Health Questionnaire -2 Score 0 2024 9:00 AM SASHAT Lyn Calhoun MA * Question Answer Date of Assessment Author Trouble falling or staying asleep, or sleeping too much Not at all 2024 9:00 AM EDT Lyn Calhoun MA Feeling tired or having nilesh le energy Not at all 2024 9:00 AM SASHAT Lyn Calhoun MA Poor appetite or overeating Not at all 2024 9: 00 AM SASHAT Lyn Calhoun MA Feeling bad about yourself - or that you are a failure or have let yourself or your family down Not at all 2024 9:00 AM SASHAT Lyn Calhoun MA Trouble concentrating on things, [...] way Not at all 2024 9:00 AM SASHAT Lyn Calhoun MA Patient Health Questionnaire -9 Score 0 2024 9:00 AM SASHAT Lyn Calhoun MA documented as of this encounter Plan of Treatment Not on file documented as of this encounter Visit Diagnoses Not on filedocumented in this encounter Additional Health Concerns Assessment Noted Time PHQ-9 Depression Total Score: 0 12/30/19 9:00 AM EDT documented as of this encounter Care Teams Brick Baker Relationship Specialty Start Date End Date Cynthia Hernandez MD [address] [place], [place] [address] PCP - Aetna 08/09/20 Cynthia Hernandez MD [address] [place] [address] PCP - General Family Medicine 01/18/24 Libby Ward NP [address] [place], [place] [address] Nurse Practitioner Family Medicine 02/05/23 documented as of this encounter
--- OUTSIDE RECORDS SUMMARY | 2025-01-11 19:00 | XMS_ITS | Encounter Summary ---
Author Organization [facility] Address [address] [facility] [place] [address] Care Team Providers Care Library Information Technician Name Role Phone Cynthia Hernandez MD Unavailable Cynthia Hernandez MD Primary Care Provider Libby Ward NP Unavailable [phone] Mariam Glasgow MD Primary Care Provider Cynthia Hernandez MD Primary Care Provider Encounter Details Date Type Department Care Team (Late st Contact Info) Description 10/10/2023 Abstract [facility] [address] [place] [address] Cynthia Hernandez MD [address] [place] [address] Social History Tobacco Use Types [...] documented as of this encounter Care Teams Library Information Technician Relationship Specialty Start Date End Date Cynthia Hernandez MD [address] [facility] [place] [address] PCP - Aet 08/09/20 Cynthia Hernandez MD [address] [facility] [place] [address] PCP - General Family Medicine 02/05/23 12/28/23 Mariam Glasgow MD [address] [place] [address] PCP - General Geriatric Medicine 12/29/23 01/17/24 Cynthia Hernandez MD [address] [facility] [place] [address] PCP - General Family Medicine 01/18/24 Libby Ward NP [address] [place] [address] Nurse Practitioner Family Medicine 02/05/23 documented as of this encounter
--- OUTSIDE RECORDS SUMMARY | 2025-01-11 19:00 | XMS_ITS | Encounter Summary ---
Author Organization [facility] Address [address] [place] [address] Care Team Providers Care Medication Aid Name Role Phone Cynthia Hernandez MD Unavailable Libby Ward NP Unavailable [phone] Cynthia Hernandez MD Primary Care Provider [phone] Encounter Details Date Type Department Care Team (Late st Contact Info) Description 01/04/2025 Bamboo flowsheet [facility] [address] [place] [address] Clraa Echeverria, THELMA Social History Tobacco Use Types [...] documented as of this encounter Care Teams Medication Aid Relationship Specialty Start Date End Date Cynthia Hernandez MD [address] [place] [address] PCP - Aet 08/09/20 Cynthia Hernandez MD [address] [place] [address] PCP - General Family Medicine 01/18/24 Libby Ward NP [address] [place] [address] Nurse Practitioner Family Medicine 02/05/23 documented as of this encounter
--- OUTSIDE RECORDS SUMMARY | 2025-01-11 19:00 | XMS_ITS | Encounter Summary ---
Author Organization [facility] Address [address] [facility] [address] Care Team Providers Care Bicycle Repairer Name Role Phone Cynthia Hernandez MD Unavailable Cynthia Hernandez MD Primary Care Provider Libby Ward NP Unavailable [phone] Mariam Glasgow MD Primary Care Provider Cynthia Hernandez MD Primary Care Provider Encounter Details Date Type Department Care Team (Late st Contact Info) Description 10/10/2023 Abstract [facility] [address] [place] [address] Cynthia Hernandez MD [address] [place] [address] Social History Tobacco Use Types [...] documented as of this encounter Care Teams Bicycle Repairer Relationship Specialty Start Date End Date Cynthia Hernandez MD [address] [facility] [place] [address] PCP - Aet 08/09/20 Cynthia Hernandez MD [address] [facility] [place] [address] PCP - General Family Medicine 02/05/23 12/28/23 Mariam Glasgow MD [address] [place] [address] PCP - General Geriatric Medicine 12/29/23 01/17/24 Cynthia Hernandez MD [address] [facility] [place] [address] PCP - General Family Medicine 01/18/24 Libby Ward NP [address] [place] [address] Nurse Practitioner Family Medicine 02/05/23 documented as of this encounter
--- OUTSIDE RECORDS SUMMARY | 2025-01-11 19:00 | XMS_ITS | Encounter Summary ---
Author Organization [facility] Address [address] [facility] [place] [address] Care Team Providers Care Center Sales And Service Associate Name Role Phone Cynthia Hernandez MD Unavailable Cynthia Hernandez MD Primary Care Provider Libby Ward NP Unavailable [phone] Mariam Glasgow MD Primary Care Provider [phone] Cynthia Hernandez MD Primary Care Provider Encounter Details Date Type Department Care Team (Late st Contact Info) Description 10/10/2023 Orders Only [facility] [address] [place] [address] Cynthia Hernandez MD [address] [place] [address] Social History Tobacco Use Types [...] documented as of this encounter Care Teams Center Sales And Service Associate Relationship Specialty Start Date End Date Cynthia Hernandez MD [address] [facility] [place] [address] PCP - Aet 08/09/20 Cynthia Hernandez MD [address] [facility] [place] [address] PCP - General Family Medicine 02/05/23 12/28/23 Mariam Glasgow MD [address] [place] [address] PCP - General Geriatric Medicine 12/29/23 01/17/24 Cynthia Hernandez MD [address] [facility] [place] [address] PCP - General Family Medicine 01/18/24 Libby Ward NP [address] [place] [address] Nurse Practitioner Family Medicine 02/05/23 documented as of this encounter
--- OUTSIDE RECORDS SUMMARY | 2025-01-11 19:00 | XMS_ITS | Encounter Summary ---
Author Organization [facility] Address [address] [place] [address] Care Team Providers Care Trust Accounts Supervisor Name Role Phone Cynthia Hernandez MD Unavailable [phone] Libby Ward NP Unavailable [phone] Cynthia Hernandez MD Primary Care Provider [phone] Encounter Details Date Type Department Care Team [...] documented as of this encounter Care Teams Trust Accounts Supervisor Relationship Specialty Start Date End Date Cynthia Hernandez MD [address] [facility] [place] [address] PCP - Aetna 08/09/20 Cynthia Hernandez MD [address] [facility] [place] [address] PCP - General Family Medicine 01/18/24 Libby Ward NP [address] [facility] [place] [address] Nurse Practitioner Family Medicine 02/05/23 documented as of this encounter
--- OUTSIDE RECORDS SUMMARY | 2025-01-11 19:00 | XMS_ITS | Encounter Summary ---
Author Organization [facility] Address [address] [facility] [place] [address] Care Team Providers Care Garland Machine Operator Name Role Phone Cynthia Hernandez MD Unavailable Cynthia Hernandez MD Primary Care Provider Libby Ward NP Unavailable [phone] Mariam Glasgow MD Primary Care Provider Cynthia Hernandez MD Primary Care Provider [phone] Encounter Details Date Type Department Care Team (Late st Contact Info) Description 10/13/2023 Abstract [facility] [address] [place] [address] Cynthia Hernandez MD [address] [place] [address] Social History Tobacco Use Types [...] documented as of this encounter Care Teams Garland Machine Operator Relationship Specialty Start Date End Date Cynthia Hernandez MD [address] [facility] [place] [address] PCP - Aet 08/09/20 Cynthia Hernandez MD [address] [facility] [place] [address] PCP - General Family Medicine 02/05/23 12/28/23 Mariam Glasgow MD [address] [place] [address] PCP - General Geriatric Medicine 12/29/23 01/17/24 Cynthia Hernandez MD [address] [facility] [place] [address] PCP - General Family Medicine 01/18/24 Libby Ward NP [address] [place] [address] Nurse Practitioner Family Medicine 02/05/23 documented as of this encounter
--- OUTSIDE RECORDS SUMMARY | 2025-01-11 19:01 | XMS_ITS | Encounter Summary ---
Author Organization [facility] Address [address] [facility] [place] [address] Care Team Providers Care Document Imaging Manager Name Role Phone Cynthia Hernandez MD Unavailable Cynthia Hernandez MD Primary Care Provider Libby Ward NP Unavailable [phone] Mariam Glasgow MD Primary Care Provider Cynthia Hernandez MD Primary Care Provider Encounter Details Date Type Department Care Team (Late st Contact Info) Description 10/13/2023 Abstract [facility] [address] [place] [address] Cynthia Hernandez MD [address] [place] [address] Social History Tobacco Use Types [...] documented as of this encounter Care Teams Document Imaging Manager Relationship Specialty Start Date End Date Cynthia Hernandez MD [address] [facility] [place] [address] PCP - Aet 08/09/20 Cynthia Hernandez MD [address] [facility] [place] [address] PCP - General Family Medicine 02/05/23 12/28/23 Mariam Glasgow MD [address] [place] [address] PCP - General Geriatric Medicine 12/29/23 01/17/24 Cynthia Hernandez MD [address] [facility] [place] [address] PCP - General Family Medicine 01/18/24 Libby Ward NP [address] [place] [address] Nurse Practitioner Family Medicine 02/05/23 documented as of this encounter
--- OUTSIDE RECORDS SUMMARY | 2025-01-11 19:01 | XMS_ITS | Encounter Summary ---
Author Organization [facility] Address [address] [place] [address] Care Team Providers Care Associate Professor Of Surgery Name Role Phone Cynthia Hernandez MD Unavailable [phone] Libby Wrad NP Unavailable [phone] Cynthia Hernandez MD Primary Care Provider [phone] Encounter Details Date Type Department Care Team [...] documented as of this encounter Care Teams Associate Professor Of Surgery Relationship Specialty Start Date End Date Cynthia Hernandez MD [address] [facility] [place] [address] PCP - Aetna 08/09/20 Cynthia Hernandez MD [address] [facility] [place] [address] PCP - General Family Medicine 01/18/24 Libby Ward NP [address] [facility] [place] [address] Nurse Practitioner Family Medicine 02/05/23 documented as of this encounter
--- OUTSIDE RECORDS SUMMARY | 2025-01-11 19:01 | XMS_ITS | Encounter Summary ---
Author Organization [facility] Address [address] [place] [address] Care Team Providers Care Bone Char Puller Name Role Phone Cynthia Henrandez MD Unavailable [phone] Libby Ward NP Unavailable Cynthia Hernandez MD Primary Care Provider [phone] Encounter Details Date Type Department Care Team [...] documented as of this encounter Care Teams Bone Char Puller Relationship Specialty Start Date End Date Cynthia Hernandez MD [address] [facility] [place] [address] PCP - Aetna 08/09/20 Cynthia Hernandez MD [address] [facility] [place] [address] PCP - General Family Medicine 01/18/24 Libby Ward NP [address] [facility] [place] [address] Nurse Practitioner Family Medicine 02/05/23 documented as of this encounter
--- OUTSIDE RECORDS SUMMARY | 2025-01-11 19:01 | XMS_ITS | Encounter Summary ---
Author Organization [facility] Address [address] [place] [address] Care Team Providers Care Copra Processor Name Role Phone Cynthia Hernandez MD Unavailable Cynthia Hernandez MD Primary Care Provider [phone] Libby Ward NP Unavailable [phone] Mariam Glasgow MD Primary Care Provider Cynthia Hernandez MD Primary Care Provider [phone] Encounter Details Date Type Department Care Team (Late st Contact Info) Description 03/09/2023 Abstract [facility] [address] [place] [address] Shital Briscoe CONTROL PANEL OPERATOR [address] [place] [address] Social History Tobacco Use Types [...] on filedocumented in this encounter Care Teams Copra Processor Relationship Specialty Start Date End Date Cynthia Hernandez MD [address] [place] [address] PCP - Aet 08/09/20 Cynthia Hernandez MD [address] [place] [address] PCP - General Family Medicine 02/05/23 12/28/23 Mariam Glasgow MD [address] [place] [address] PCP - General Geriatric Medicine 12/29/23 01/17/24 Cynthia Hernandez MD [address] [place] [address] PCP - General Family Medicine 01/18/24 Libby Ward NP [address] [place], [place] [address] Nurse Practitioner Family Medicine 02/05/23 documented as of this encounter
--- OUTSIDE RECORDS SUMMARY | 2025-01-11 19:01 | XMS_ITS | Encounter Summary ---
Author Organization [facility] Address [address] [place] [address] Care Team Providers Care Art Psychotherapist Name Role Phone Cynthia Hernandez MD Unavailable [phone] Libby Ward NP Unavailable [phone] Mariam Glasgow MD Primary Care Provider Cynthia Hernandez MD Primary Care Provider [phone] Encounter Details Date Type Department Care Team (Late st Contact Info) Description 01/06/2024 Orders Only [facility] [address] [place] [address] Mariam Glasgow MD [address] [place] [address] Social History Tobacco Use Types [...] on file documented as of this encounter Procedures Procedure [...] documented as of this encounter Care Teams Art Psychotherapist Relationship Specialty Start Date End Date Cynthia Hernandez MD [address] [facility] [place], [place] [address] PCP - Aetna 08/09/20 Mariam Glasgow MD [address] [place] [address] PCP - General Geriatric Medicine 12/29/23 01/17/24 Cynthia Hernandez MD [address] [facility] [place] [address] PCP - General Family Medicine 01/18/24 Libby Ward NP [address] [facility] [place] [address] Nurse Practitioner Family Medicine 02/05/23 documented as of this encounter
--- OUTSIDE RECORDS SUMMARY | 2025-01-11 19:01 | XMS_ITS | Encounter Summary ---
Author Organization [facility] Address [address] [facility] [place] [address] Care Team Providers Care Creative Strategist Name Role Phone Cynthia Hernandez MD Unavailable [phone] Cynthia Hernandez MD Primary Care Provider [phone] Libby Ward NP Unavailable [phone] Mariam Glasgow MD Primary Care Provider Cynthia Hernandez MD Primary Care Provider Encounter Details Date Type Department Care Team (Late st Contact Info) Description 01/01/2023 Orders Only [facility] [address] [place] [address] Shital Briscoe TERMITE CONTROL REPRESENTATIVE [address] [place], [place] [address] Social History Tobacco Use Types Packs/Day Years [...] on filedocumented in this encounter Care Teams Creative Strategist Relationship Specialty Start Date End Date Cynthia Hernandez MD [address] [place], [place] [address] PCP - Aetna 08/09/20 Cynthia Hernandez MD [address] [facility] [place], [place] [address] PCP - General Family Medicine 02/05/23 12/28/23 Mariam Glasgow MD [address] [place] [address] PCP - General Geriatric Medicine 12/29/23 01/17/24 Cynthia Hernandez MD [address] [place], [place] [address] PCP - General Family Medicine 01/18/24 Libby Ward NP [address] [place], [place] [address] Nurse Practitioner Family Medicine 02/05/23 documented as of this encounter
--- OUTSIDE RECORDS SUMMARY | 2025-01-11 19:01 | XMS_ITS | Encounter Summary ---
Author Organization [facility] Address [address] [place] [address] Care Team Providers Care Mash Preparatory Operator Name Role Phone Cynthia Leong MD Unavailable [phone] Cynthia Leong MD Primary Care Provider [phone] Libby Ward NP Unavailable [phone] Mariam Glasgow MD Primary Care Provider [phone] Cynthia Leong MD Primary Care Provider [phone] Encounter Details Date Type Department Care Team [...] AM EDT Narrative 10/26/2023 8:21 [place] [address] XRay Report Signed Patient: YVONNE LIZ MR#: [id number] : 1945 Acct:[id number] Age/Sex: 77 / F ADM Date: 10/25/23 Loc: EC Attending Dr: Charles Garrido M.D. Ordering Physician: Charles Garrido M.D. Date of Service: 10/25/23 Procedure(s): XR hip RT 2V w/ pelvis Accession Number(s): [id number] cc: Charles Garrido M.D.; CYNTHIA LEONG [place] [address] Patient Name: YVONNE LIZ MRN: [id number] date: 1945 Sex: F Assigned Patient Location: Current Patient Location: Accession/Order Number: [id number] Exam Date: 10/25/2023 11:11 Report Date: 10/26/2023 [...] M.D. Signed By: 10/26/23820 DD/ 7 TD/TT: Financial Aid: Procedure Note Radiology, Radiologist, MD - 10/26/2023 [place] [address] XRay Report Signed Patient: RODRIGUEZ LIZR#: [id number] : 1945cct:[id number] Age/Sex: 77 / FADM Date: 10/25/23 Loc: EC Attending Dr: Charles Garrido M.D. Ordering Physician: Charles Garrido M.D. Date of Service: 10/25/23 Procedure(s): XR hip RT 2V w/ pelvis Accession Number(s): [id number] cc: Charles Garrido M.D.; CYNTHIA LEONG [place] [address] Patient Name: YVONNE LIZ MRN: [id number] date: 1945 Sex: F Assigned Patient Location: Current Patient Location: Accession/Order Number: [id number] Exam Date: 10/25/2023 11:11 Report Date: 10/26/2023 [...] 08:18 Dictated By: Ivan Esteban M.D. Signed By:10/26/2321 DD/ 7 TD/TT: Financial Aid: Generic External Data Provider IMG XR PROCEDURES Final Result documented in this encounter Visit Diagnoses Not on filedocumented in this encounter Additional Health Concerns Assessment Noted Time PHQ-9 Depression Total Score: 12 024 2:11 PM EST documented as of this encounter Care Teams Mash Preparatory Operator Relationship Specialty Start Date End Date Cynthia Leong MD [address] [facility] [place] [address] PCP - Aetna 08/09/20 Cynthia Leong MD [address] [facility] [place] [address] PCP - General Family Medicine 02/05/23 12/28/23 Mariam Glasgow MD [address] [place] [address] PCP - General Geriatric Medicine 12/29/23 01/17/24 Cynthia Leong MD [address] [facility] [place] [address] PCP - General Family Medicine 01/18/24 Libby Ward NP [address] [facility] [place] [address] Nurse Practitioner Family Medicine 02/05/23 documented as of this encounter
--- OUTSIDE RECORDS SUMMARY | 2025-01-11 19:01 | XMS_ITS | Encounter Summary ---
Author Organization [facility] Address [address] [place] [place] [address] Care Team Providers Care Learning Operations Specialist Name Role Phone Cynthia Hernandez MD Unavailable Cynthia Hernandez MD Primary Care Provider Libby Ward NP Unavailable [phone] Mariam Glasgow MD Primary Care Provider [phone] Cynthia Hernandez MD Primary Care Provider Encounter Details Date Type Department Care Team (Late st Contact Info) Description 10/20/2023 Abstract [facility] [address] [place] [address] Bk Brown MD [address] [facility] [address] [place], [place] [id number] Social History Tobacco Use Types Packs/Day Years [...] documented as of this encounter Care Teams Learning Operations Specialist Relationship Specialty Start Date End Date Cynthia Hernandez MD [address] [facility] [place] [address] PCP - Aet 08/09/20 Cynthia Hernandez MD [address] [facility] [place] [address] PCP - General Family Medicine 02/05/23 12/28/23 Mariam Glasgow MD [address] [place] [address] PCP - General Geriatric Medicine 12/29/23 01/17/24 Cynthia Hernandez MD [address] [facility] [place] [address] PCP - General Family Medicine 01/18/24 Libby Ward NP [address] [place] [address] Nurse Practitioner Family Medicine 02/05/23 documented as of this encounter
--- OUTSIDE RECORDS SUMMARY | 2025-01-11 19:01 | XMS_ITS | Encounter Summary ---
Author Organization [facility] Address [address] [place] [address] Care Team Providers Care Primary Care Provider Name Role Phone Cynthia Hernandez MD Unavailable [phone] Libby Ward NP Unavailable [phone] Cynthia Hernandez MD Primary Care Provider [phone] Reason for Visit * Reason Onset Date Comments Broken wrist 01/08/2025 Encounter Details Date Type Department Care Team (Late st Contact Info) Description 01/08/2025 Telephone [facility] [address] [place] [address] ValerianoClara snyder, FISHER TERRAPIN Broken wrist Social History Tobacco Use Types Packs/Day Years [...] encounter Miscellaneous Notes * Telephone Encounter - Rose Snow - 01/08/2025 8:03 AM EDT She called noting Dominique had broken wrist this weekend. She was at the ER yesterday and today she has an appt w/ Ruthie for ortho. Nanette cx her PT out thru this month; she said Dominique has a fu w/ Dr. Hernandez on and post that she'll call re: recommendation(s). documented in this encounter Plan of Treatment Not on file documented as of this encounter Visit Diagnoses Not on filedocumented in this encounter Additional Health Concerns Assessment Noted Time PHQ-9 Depression Total Score: 0 12/30/19 25 9:00 AM EDT documented as of this encounter Care Teams Primary Care Provider Relationship Specialty Start Date End Date Cynthia Hernandez MD [address] [facility] [place] [address] PCP - [employer] 08/09/20 Cynthia Hernandez MD [address] [facility] [place] [address] PCP - General Family Medicine 01/18/24 Libby Ward NP [address] [place] [address] Nurse Practitioner Family Medicine 02/05/23 documented as of this encounter
--- OUTSIDE RECORDS SUMMARY | 2025-01-11 19:01 | XMS_ITS | Patient Health Record ---
Author Organization [facility] Address [address] [place] [address] Care Team Providers Care Lace Winder Name Role Phone Charles Hendricks Unavailable [phone] Results Component Value Reference Range Notes SCC- HAND 3 VIEW RIGHT 35413 Reviewed date:01/09/2025 09:43:21 AM Interpretation: Performing Lab: Notes/Report: Reason For Referral No Information Social History Tobacco Use: Social History Observation Description Date Details (start date - stop date) Never Smoker NA - NA AUDIT-C (Standard) Question Answer Notes Did you have a drink containing alcohol in the p ast year? No Points 0 Interpretation Negative Tobacco Control (Standard) Question Answer Notes Tobacco use: Nonsmoker Problems Problem Type SNOMED Code ICD Code Onset Dates Problem Status W/U Status Risk Notes Problem Vertigo (405255122) Vertigo (R42) Active confirmed Problem Closed fracture of neck of femur (128084098) Closed fracture of neck of right femur, initial encounter (S72.001A) Active confirmed Problem Fall () Fall, initial encounter (W19.XXXA) Active confirmed Vital Signs Height 5'4 in 01/08/2025 Weight 133 lbs 01/08/2025 BMI 22.83 01/08/2025 Encounters Encounter Location Date Provider Diagnosis [facility] Office [address] [place] [address] [address] [place] [address] 01/08/2025 Charles Hendricks Right hand pain M79.641 [...] hand contusion. Import medication Plan Of Treatment Next Appt Details Provider Name:Charles Neely and, 01/15/2025 09:00:00 AM, [address] [facility], [address], [place], [address], Insurance Providers Payer Name Payer Address Payer Phone Subscriber Number Group Number Insured Name Patient Relationship to Insured Coverage Start Date Coverage End Date Medicare [employer] [address] [place] [address] [id number] DEXTER MCCARTHY Self - patient is the insured Medical (General) History Medical History History ICD Code Hypothyroidism High Blood Pressure Surgical History Surgery Date(Month/Year) hip replacement 10/2023
--- OUTSIDE RECORDS SUMMARY | 2025-01-11 19:01 | XMS_ITS | Encounter Summary ---
Author Organization [facility] Address [address] [place] [address] Care Team Providers Care Automotive Detailer Name Role Phone Cynthia Hernandez MD Unavailable [phone] Libby Ward NP Unavailable [phone] Cynthia Hernandez MD Primary Care Provider [phone] Encounter Details Date Type Department Care Team (Late st Contact Info) Description 01/07/2025 Abstract [facility] [address] [place] [address] Cynthia Hernandez MD [address] [place] [address] Social History Tobacco Use Types [...] documented as of this encounter Care Teams Automotive Detailer Relationship Specialty Start Date End Date Cynthia Hernandez MD [address] [place] [address] PCP - [employer] 08/09/20 Cynthia Hernandez MD [address] [place] [address] PCP - General Family Medicine 01/18/24 Libby Ward NP [address] [place] [address] Nurse Practitioner Family Medicine 02/05/23 documented as of this encounter
--- OUTSIDE RECORDS SUMMARY | 2025-01-11 19:01 | XMS_ITS | Encounter Summary ---
Author Organization [facility] Address [address] [facility] [facility] [place] [address] Care Team Providers Care Funeral Service Practitioner/Embalmer Name Role Phone Cynthia Hernandez MD Unavailable Cynthia Hernandez MD Primary Care Provider [phone] Libby Ward NP Unavailable [phone] Mariam Glasgow MD Primary Care Provider Cynthia Hernandez MD Primary Care Provider [phone] Encounter Details Date Type Department Care Team (Late st Contact Info) Description 03/01/2023 Abstract [facility] [address] [place] [id number] Sarah Gomes NP Social History Tobacco Use [...] on filedocumented in this encounter Care Teams Funeral Service Practitioner/Embalmer Relationship Specialty Start Date End Date Cynthia Hernandez MD [address] [place] [address] PCP - [employer] 08/09/20 Cynthia Hernandez MD [address] [facility] [place] [address] PCP - General Family Medicine 02/05/23 12/28/23 Mariam Glasgow MD [address] [place] [address] PCP - General Geriatric Medicine 12/29/23 01/17/24 Cynthia Hernandez MD [address] [facility] [address] PCP - General Family Medicine 01/18/24 Libby Ward NP [address] [facility] [place], [place] [address] Nurse Practitioner Family Medicine 02/05/23 documented as of this encounter
--- OUTSIDE RECORDS SUMMARY | 2025-01-11 19:01 | XMS_ITS | Clinical Summary ---
Author Organization [facility] Address [address] [place] [address] Care Team Providers Care Rental Representative Name Role Phone Cynthia Hernandez Primary Care Provider [phone] Allergies No known active allergies Medications OMEPRAZOLE [...] Protein, Total 6.9 6.0 - 8.4 g/dL [facility] Albumin 3.9 3.5 - 5.0 g/dL [facility] Calcium 9.4 8.5 - 10.5 mg/dL [facility] Bilirubin, Total 0.3 0.0 - 1.5 mg/dL [facility] Alkaline Phosphatase 79 40 - 150 U/L [facility] AST 28 7 - 40 U/L [facility] Glucose 125(H) 65 - 100 mg/dL [facility] BUN 17 8 - 25 mg/dL [facility] Creatinine 0.92 0.70 - 1.40 mg/dL [facility] Sodium 142 132 - 148 mmol/L [facility] Potassium 3.7 3.5 - 5.0 mmol/L [facility] Chloride 106 98 - 110 mmol/L [facility] CO2 24 23 - 32 mmol/L [facility] Anion Gap 12 0 - 15 mmol/L [facility] ALT 23 0 - 45 U/L [facility] eGFR- >60 [facility] eGFR-All Other Races >60 . [facility] Comment: eGFR (Estimated GFR) Units [...] AM EDT [facility] Final Result [facility] [address] [place] [address] from Last 3 Months or Most Recently Relevant to Health Maintenance Insurance [employer] MEDICARE Care Teams Rental Representative Relationship Specialty Start Date End Date Cynthia Hernandez [address] [place] [address] PCP - General Family Medicine 12/15/13
--- OUTSIDE RECORDS SUMMARY | 2025-01-11 19:01 | XMS_ITS | Encounter Summary ---
Author Organization [facility] Address [address] [facility] [place] [address] Care Team Providers Care Metal Sprayer Name Role Phone Cynthia Hernandez MD Unavailable Cynthia Hernandez MD Primary Care Provider Libby Ward NP Unavailable [phone] Mariam Glasgow MD Primary Care Provider [phone] Cynthia Hernandez MD Primary Care Provider [phone] Encounter Details Date Type Department Care Team (Late st Contact Info) Description 10/08/2023 Abstract [facility] [address] [place] [address] Cynthia Hernandez MD [address] [place] [address] Social History Tobacco Use Types [...] documented as of this encounter Care Teams Metal Sprayer Relationship Specialty Start Date End Date Cynthia Hernandez MD [address] [facility] [place] [address] PCP - Aet 08/09/20 Cynthia Hernandez MD [address] [facility] [place] [address] PCP - General Family Medicine 02/05/23 12/28/23 Mariam Glasgow MD [address] [place] [address] PCP - General Geriatric Medicine 12/29/23 01/17/24 Cynthia Hernandez MD [address] [facility] [place] [address] PCP - General Family Medicine 01/18/24 Libby Ward NP [address] [place] [address] Nurse Practitioner Family Medicine 02/05/23 documented as of this encounter
--- OUTSIDE RECORDS SUMMARY | 2025-01-11 19:01 | XMS_ITS | Encounter Summary ---
Author Organization [facility] Address [address] [place] [address] Care Team Providers Care Stage Set Up Worker Name Role Phone Cynthia Hernandez MD Unavailable [phone] Libby Ward NP Unavailable [phone] Cynthia Hernandez MD Primary Care Provider [phone] Encounter Details Date Type Department Care Team (Late st Contact Info) Description 11/30/2024 Abstract [facility] [address] [place] [address] Cynthia Hernandez MD [address] [place] [address] Social History Tobacco Use Types [...] documented as of this encounter Care Teams Stage Set Up Worker Relationship Specialty Start Date End Date Cynthia Hernandez MD [address] [place] [address] PCP - [employer] 08/09/20 Cynthia Hernandez MD [address] [place] [address] PCP - General Family Medicine 01/18/24 iLbby Ward NP [address] [place] [address] Nurse Practitioner Family Medicine 02/05/23 documented as of this encounter
--- OUTSIDE RECORDS SUMMARY | 2025-01-11 19:01 | XMS_ITS | Encounter Summary ---
Author Organization [facility] Address [address] [place] [address] Care Team Providers Care Progressive Die Maker Name Role Phone Cynthia Hernandez MD Unavailable Libby Ward NP Unavailable [phone] Cynthia Hernandez MD Primary Care Provider [phone] Encounter Details Date Type Department Care Team (Late st Contact Info) Description 04/03/2024 Abstract [facility] [address] [place] [address] Cynthia Hernandez MD [address] [place] [address] Social History Tobacco Use Types [...] documented as of this encounter Care Teams Progressive Die Maker Relationship Specialty Start Date End Date Cynthia Hernandez MD [address] [place] [address] PCP - Aet 08/09/20 Cynthia Hernandez MD [address] [place] [address] PCP - General Family Medicine 01/18/24 Libby Ward NP [address] [place], [place] [address] Nurse Practitioner Family Medicine 02/05/23 documented as of this encounter
--- OUTSIDE RECORDS SUMMARY | 2025-01-11 19:01 | XMS_ITS | Encounter Summary ---
Author Organization [facility] Address [address] [place] [address] Care Team Providers Care Blanket Cutter Hand Name Role Phone Cynthia Hernandez MD Unavailable Libby Ward NP Unavailable [phone] Cynthia Hernandez MD Primary Care Provider [phone] Encounter Details Date Type Department Care Team (Late st Contact Info) Description 01/02/2025 Bamboo flowsheet [facility] [address] [place] [address] Mayur Agarwal, PT [address] [place] [address] Social History Tobacco Use Types Packs/Day Years [...] documented as of this encounter Care Teams Blanket Cutter Hand Relationship Specialty Start Date End Date Cynthia Hernandez MD [address] [place] [address] PCP - Aet 08/09/20 Cynthia Hernandez MD [address] [facility] [place] [address] PCP - General Family Medicine 01/18/24 Libby Ward NP [address] [place] [address] Nurse Practitioner Family Medicine 02/05/23 documented as of this encounter
--- OUTSIDE RECORDS SUMMARY | 2025-01-11 19:01 | XMS_ITS | Clinical Summary ---
Author Organization [facility] Address [address] [place] [address] Care Team Providers Care Tire Trimmer Hand Name Role Phone Cynthia Hernandez MD Unavailable [phone] Libby Ward NP Unavailable [phone] Cynthia Hernandez MD Primary Care Provider [phone] Allergies Active Allergy Reactions Criticality Noted Date [...] mouth Daily Active escitalopram (Lexapro) 5 MG tabletIndications: Mild depression (CMS/HCC) Take 1 tablet (5 mg) by mouth Daily 30 tablet 11 01/04/20 24 Active diazePAM (Valium) 5 MG tablet TAKE 1 TABLET BY MOUTH PRIOR TO PROCEDURE 04/03/20 24 Active Meclizine HCl 25 MG chewable tablet CHEW AND SWALLOW 1 (ONE) TABLET BY MOUTH DAILY NEEDED 09/11/19 25 Active guaiFENesin (Mucinex) 600 MG 12 hr tabletIndications: Viral URI with cough Take 2 tablets (1,200 mg) by mouth in the morning and 2 tablets (1,200 mg) before bedtime. Do not crush, chew, or split.. 120 tablet 09/26/19 25 Active lisinopril 5 MG tabletIndications: Essential hypertension (CMS/HCC) TAKE 1 TABLET BY MOUTH DAILY 90 tablet 1 12/13/19 25 Active omeprazole (PriLOSEC) [address] capsuleIndications :Gastroesophageal reflux disease without esophagitis Take 1 capsule (40 mg) by mouth Daily 90 capsule 1 12/16/19 25 Active atorvastatin (Lipitor) 10 MG tabletIndications: Mixed hyperlipidemia (CMS/HCC) Take 1 tablet (10 mg) by mouth Daily 100 tablet 1 12/16/19 25 025 Active metoprolol succinate XL (Toprol-XL) 25 MG 24 hr tabletIndications: Essential hypertension (CMS/HCC) Take 1 tablet (25 mg) by mouth in the morning. 90 tablet 1 12/16/19 25 Active levothyroxine (Synthroid, Levoxyl) 75 MCG tabletIndications: Acquired hypothyroidism (CMS/HCC) Take 1 tablet (75 mcg) by mouth in the morning. Take before meals. 90 tablet 1 12/16/19 25 Active atorvastatin (Lipitor) 10 MG tabletIndications: Mixed hyperlipidemia (CMS/HCC) TAKE 1 TABLET BY MOUTH DAILY at the same time each day 100 tablet 1 09/04/19 25 025 Discontinu ed(Reorder ) omeprazole (PriLOSEC) [address] capsuleIndications :Gastroesophageal reflux disease without esophagitis TAKE 1 CAPSULE BY MOUTH IN THE MORNING 90 capsule 1 09/04/19 25 025 Discontinu ed(Reorder ) levothyroxine (Synthroid, Levoxyl) 75 MCG tabletIndications: Acquired hypothyroidism (CMS/HCC) TAKE 1 TABLET BY MOUTH IN THE MORNING ON AN EMPTY STOMACH 90 tablet 1 12/02/19 25 025 Discontinu ed(Reorder ) metoprolol succinate XL (Toprol-XL) 25 MG 24 hr tabletIndications: Essential hypertension (CMS/HCC) TAKE 1 TABLET BY MOUTH IN THE MORNING 90 tablet 1 12/08/19 25 025 Discontinu ed(Reorder ) valACYclovir (Valtrex) 1 g tabletIndications: Herpes simplex Take 1 tablet (1,000 mg) by mouth in the morning and 1 tablet (1,000 mg) in the evening and 1 tablet (1,000 mg) before bedtime. Do all this for 7 days. 21 tablet 12/30/19 25 025 Active Problems Problem Noted Date Diagnosed Date [...] Continue PHYSICAL THERAPY. Scapular dyskinesis 12/07/2019 08/03/20 23 Cramp in lower leg associated with rest 12/01/2018 08/03/2023 B12 deficiency 01/08/2014 01/01/2023 Encounters Date Type Department Care Team Description 01/08/2025 Telephone [facility] [place] [id number] [facility] [place] [address] Cynthia Hernandez MD 01/08/2025 Telephone [facility] [place] [address] [facility] [place] [address] Cynthia Hernandez MD 01/08/2025 Telephone [facility] [address] [facility] [address] [place] [address] Clara Echeverria, BOTTLE BLOWING MACHINE TENDER Broken wrist 01/07/2025 Abstract [facility] [address] [facility] [place] [address] Cynthia Hernandez MD 01/05/2025 Results Follow-Up [facility] [address] [facility] [place] [address] Cynthia Hernandez MD 01/04/2025 12:00 PM EDT Treatment [facility] [address] [facility] [address] [place] [address] Clara Echeverria, BOTTLE BLOWING MACHINE TENDER Lumbar paraspinal muscle spasm (Primary Dx); Weakness of both lower extremities 01/04/2025 Bamboo flowsheet [facility] [address] [facility] [address] [place] [address] Clara Echeverria, BOTTLE BLOWING MACHINE TENDER 01/04/2025 Travel 01/02/2025 11:30 AM EDT Treatment [facility] [address] [facility] [address] [place] [address] Mayur Agarwal, PT Lumbar paraspinal muscle spasm (Primary Dx); Weakness of both lower extremities; Frequent falls 01/02/2025 Bamboo flowsheet [facility] [address] [facility] [address] [place] [address] Mayur Agarwal, PT 01/02/2025 Travel 2024 10:00 AM EDT Office Visit [facility] [address] [place] [id number] Cynthia Hernandez MD Peripheral polyneuropathy (Primary Dx); Wellness examination; Herpes simplex; Essential hypertension (CMS/HCC); Mixed hyperlipidemia (CMS/HCC); Acquired hypothyroidism (CMS/HCC); Spinal stenosis of lumbar region, unspecified whether neurogenic claudication present 2024 Travel 12/28/2024 11:30 AM EDT Treatment [facility] [address] [facility] [address] [place] [address] Kelbley, Clara, BOTTLE BLOWING MACHINE TENDER Lumbar paraspinal muscle spasm (Primary Dx); Weakness of both lower extremities 12/28/2024 Bamboo flowsheet [facility] [address] [facility] [address] [place] [address] Kelbley, Clara, BOTTLE BLOWING MACHINE TENDER 12/28/2024 Travel 12/26/2024 10:00 AM EDT Treatment [facility] [address] [facility] [address] [place] [address] Kelbley, Clara, BOTTLE BLOWING MACHINE TENDER Lumbar paraspinal muscle spasm (Primary Dx); Weakness of both lower extremities; Frequent falls 12/26/2024 Bamboo flowsheet [facility] [address] [facility] [address] [place] [address] Kelbley, Clara, BOTTLE BLOWING MACHINE TENDER 12/26/2024 Travel 12/21/2024 11:30 AM EDT Treatment [facility] [address] [facility] [address] [place] [address] Kelbley, Clara, BOTTLE BLOWING MACHINE TENDER Lumbar paraspinal muscle spasm (Primary Dx); Weakness of both lower extremities; Frequent falls 12/21/2024 Bamboo flowsheet [facility] [address] [facility] [address] [place] [address] Kelbley, Clara, BOTTLE BLOWING MACHINE TENDER 12/21/2024 Travel 12/15/2024 Refill [facility] [address] [facility] [place] [address] Nikki Coughlin MA Gastroesophageal reflux disease without esophagitis; Mixed hyperlipidemia ([facility]); Essential hypertension ([facility]); Acquired hypothyroidism ([facility]) 12/14/2024 11:00 AM EDT Treatment [facility] [address] [facility] [address] [place] [address] Clara Echeverria, BOTTLE BLOWING MACHINE TENDER Lumbar paraspinal muscle spasm (Primary Dx); Weakness of both lower extremities; Frequent falls 12/14/2024 Bamboo flowsheet [facility] [address] [facility] [address] [place] [address] Clara Echeverria, BOTTLE BLOWING MACHINE TENDER 12/14/2024 Travel 12/11/2024 12:00 PM EDT Treatment [facility] [address] [facility] [address] [place] [address] Clara Echeverria, BOTTLE BLOWING MACHINE TENDER Lumbar paraspinal muscle spasm (Primary Dx); Weakness of both lower extremities; Frequent falls 12/11/2024 Refill [facility] [address] [facility] [place] [address] Cynthia Hernandez MD Essential hypertension ([facility]) 12/11/2024 Bamboo flowsheet [facility] [address] [facility] [address] [place] [address] Judith Echeverriaissa, BOTTLE BLOWING MACHINE TENDER 12/11/2024 Travel 12/10/2024 Telephone [facility] [address] [place] [address] Ly Prasad MA 12/07/2024 2:00 PM EDT Evaluation [facility] [address] [facility] [address] [place] [address] Mayur Agarwal, PT Lumbar paraspinal muscle spasm (Primary Dx); Weakness of both lower extremities; Frequent falls 12/07/2024 Plan of Care Documentation [facility] [address] [facility] [address] [place] [address] 12/07/2024 Refill [facility] [address] [facility] [place] [address] Cynthia Hernandez MD Essential hypertension ([facility]) 12/07/2024 Bamboo flowsheet [facility] [address] [facility] [address] [place] [address] Mayur Agarwal, PT 12/07/2024 Travel 12/01/2024 Refill [facility] [address] [place] [address] Cynthia Hernandez MD Acquired hypothyroidism ([facility]) 11/30/2024 Abstract [facility] [address] [facility] [address] Cynthia Hernandez MD 10/23/2024 Telephone [facility] [address] [place] [address] Sindy Lucero MA from Last 3 Months Immunizations Immunization [...] 2024 9:56 AM EDT Plan of Treatment Health Maintenance Due Date Last Done Comments Influenza Vaccine (Season Ended) 2025 05/11/2023, 06/23/2022, 05/09/2021, Additional history exists Medicare Annual Wellness (AWV) 2025 0 2024, 08/03/2023, 08/03/2023 Pneumococcal Vaccine: 65+ Years Completed 3 Procedures Procedure Name Priority Date/Time Associated Diagnosis Comments TEST AUTHORIZATION Routine 2024 10 :41 AM EDT IMMUNOFIXATION ELECTROPHORESIS Routine 2024 10:41 AM EDT ANTINUCLEAR ANTIBODIES TITER AND PATTERN Routine 2024 10:41 AM EDT HEPATITIS PANEL, ACUTE Routine 10:41 AM EDT Peripheral polyneuropathy METHYLMALONIC ACID, [...] polyneuropathy from Last 3 Months Results * TEST AUTHORIZATION (2024 10:41 AM EDT) TEST NAME: IMMUNOFIXAT ION, SERUM [facility] TEST CODE: 549SB [employer] CLIENT CONTACT: DEAN QURESHI [facility] REPORT ALWAYS MESSAGE SIGNATURE [facility] Comment: The laboratory testing on this patient was verbally requested or confirmed by the ordering physician or his or her authorized medical field representative after contact with an employee of [employer]. Federal regulations require that we maintain on file written authorization for all laboratory testing. Accordingly we are asking that the ordering physician or his or her authorized medical field representative sign a copy of this report and promptly return it to the client services account manager. Signature: COMMENT [facility] Comment: Please have the ordering physician or his or her authorized medical field representative sign a copy of this report and promptly return it by faxing it to: [phone] or by returning the form to your communications lead. 2024 10:4 1 AM EDT 2024 10:43 AM EDT Narrative [facility] - 01/10/2025 11:20 AM EDT MULTIPLE TESTING PRIORITIES; ROUTINE TESTING TO FOLLOW. Resulting Agency Comment Performing Organization Information Site ID: QPT Name: [employer] [facility] Address: [address] [place] [address], [address] [place] [phone] Director: Juan Alberto Harrell MD us Cynthia Hernandez MD LAB BLOOD ORDERABLES Final Re sult Performing Organization Address [facility] de Phone Number [facility] * (ABNORMAL) ANTINUCLEAR [...] AC-1: Homogeneous International Consensus on JOANIE Patterns (https://doi.org/10.1515/jjhe-[email or web address]) 2024 10:4 1 AM EDT 2024 10:43 AM EDT Narrative [facility] - 01/10/2025 11:20 AM EDT MULTIPLE TESTING PRIORITIES; ROUTINE TESTING TO FOLLOW. Resulting Agency Comment Performing Organization Information Site ID: QPT Name: [employer] [facility] Address: [address] [place] [address], [address] [place] [phone] Director: Juan Alberto Harrell MD us Cynthia Hernandez MD LAB BLOOD ORDERABLES Final Re sult Performing Organization Address [facility] Co de Phone Number [facility] * TSH W/REFLEX TO FT4 (2024 10:41 AM EDT) TSH W/REFLEX TO FT4 1.61 0.40 - 4.50 mIU/L [facility] 2024 10:4 1 AM EDT 2024 10:43 AM EDT Narrative [facility] - 01/10/2025 11:20 AM EDT MULTIPLE TESTING PRIORITIES; ROUTINE TESTING TO FOLLOW. Resulting Agency Comment Performing Organization Information Site ID: QPT Name: [employer] [facility] Address: [address], [address] [place] [address] Director: Juan Alberto Harrell MD Cynthia Hernandez [...] neural tube defects and intrauterine growth restriction. [employer] utilized Multi-Modal Decomposition (MMD) analysis to establish first and second trimester-specific MMA reference intervals in , as given below: MMA, First trimester (<13 wks gestation): 58-167 nmol/L MMA, Second trimester (13-23 wks gestation): 63-241 nmol/L Note 1 This test was developed and its analytical performance characteristics have been determined by [employer]. It has not been cleared or approved [...] Performing Organization Information Site ID: QPT Name: [employer] [facility] Address: [address], [address] [place] [address] Director: Juan Alberto Harrell MD Cynthia Hernandez MD LAB BLOOD ORDERABLES Final Re sult [facility] * Hepatitis panel, acute (2024 10:41 AM EDT) HEPATITIS A IGM NON-REACTI VE NON-REACT ASAEL [facility] Comment: For additional information, please refer to http://MocoSpace/faq/RDM469 (This link is being provided for informational/ educational purposes only.) HEPATITIS B SURFACE ANTIGEN NON-REACTI VE NON-REACT ASAEL [facility] Comment: For additional information, please refer to http://MocoSpace/faq/THS564 (This link is being provided for informational/ educational purposes only.) HEPATITIS B CORE ANTIBODY (IGM) NON-REACTI VE NON-REACT ASAEL [facility] Comment: For additional information, please refer to http://MocoSpace/faq/VAN149 (This link is being provided for informational/ educational purposes only.) HEPATITIS C ANTIBODY NON-REACTI VE NON-REACT ASAEL [facility] Comment: HCV antibody was non-reactive. There is no laboratory evidence of HCV infection. In most cases, no further action is required. However, if recent HCV exposure is suspected, a test for HCV RNA (test code 78187) is suggested. For additional information please refer to http://MocoSpace/faq/IIS79w4 (This link is being provided for informational/ educational purposes only.) Blood Venous blood specimen / Unknown 2024 10:41 AM EDT 2024 10:43 AM EDT Narrative [facility] - 01/10/2025 11:20 AM EDT MULTIPLE TESTING PRIORITIES; ROUTINE TESTING TO FOLLOW. Resulting Agency Comment Performing Organization Information Site ID: QPT Name: [employer] [facility] Address: [address] [place] [address], [address] [place] [phone] Director: Juan Alberto Harrell MD us Cynthia Hernandez MD LAB BLOOD ORDERABLES Final Re sult [facility] * Sedimentation rate, automated (2024 10:41 AM EDT) SED RATE BY MODIFIED WESTERGREN 9 < OR = 30 mm/h [facility] Blood Venous blood specimen / Unknown 2024 10:41 AM EDT 2024 10:43 AM EDT Narrative [facility] - 01/10/2025 11:20 AM EDT MULTIPLE TESTING PRIORITIES; ROUTINE TESTING TO FOLLOW. Resulting Agency Comment Performing Organization Information Site ID: QPT Name: [employer] [facility] Address: [address] [place] [address], [address] [place] [address] Director: Juan Alberto Harrell MD Cynthia Hernandez MD LAB BLOOD ORDERABLES Final Re sult Performing Organization Address [facility] de Phone Number [facility] * Immunofixation electrophoresis (2024 10:41 AM EDT) Pathologist [facility] SWATI INTERPRETATION [facility] Comment:IgG lambda monoclona l band present. 2024 10:4 1 AM EDT 2024 10:43 AM EDT Narrative [facility] - 01/10/2025 11:20 AM EDT MULTIPLE TESTING PRIORITIES; ROUTINE TESTING TO FOLLOW. Resulting Agency Comment Performing Organization Information Site ID: QPT Name: [employer] [facility] Address: [address] [place] [address], [address] [place] [address] Director: Juan Alberto Harrell MD Cynthia Hernandez MD LAB BLOOD ORDERABLES Final Re sult Performing Organization Address [facility] de Phone Number [facility] * (ABNORMAL) JOANIE (2024 10:41 AM EDT) Pathologist [facility] JOANIE SCREEN, IFA POSITIVE( A) NEGATIVE [facility] Comment: JOANIE IFA is a first line screen for detecting the presence of up to approximately 150 autoantibodies in various autoimmune diseases. A positive JOANIE IFA result is suggestive of autoimmune disease and reflexes to titer and pattern. Further laboratory testing may be considered if clinically indicated. For additional information, please refer to http://education.Qeexo/faq/VXQ218 (This link is being provided for informational/ educational purposes only.) Blood Venous blood specimen / Unknown 2024 10:41 AM EDT 2024 10:43 AM EDT Narrative [facility] - 01/10/2025 11:20 AM EDT MULTIPLE TESTING PRIORITIES; ROUTINE TESTING TO FOLLOW. Resulting Agency Comment Performing Organization Information Site ID: QPT Name: [employer] [facility] Address: [address] [place] [address], [address] [place] [address] Director: Juan Alberto Harrell MD us Cynthia Hernandez MD LAB BLOOD ORDERABLES Final Re sult [facility] * (ABNORMAL) Protein electrophoresis, serum (2024 [...] Performing Organization Information Site ID: QPT Name: [employer] [facility] Address: [address] [place] [address], [address] [place] [phone] Director: Juan Alberto Harrell MD us Cynhtia Hernandez MD LAB BLOOD ORDERABLES Final Re sult Performing Organization Address [facility] de Phone Number [facility] * Vitamin B12 [...] Performing Organization Information Site ID: QPT Name: [employer] [facility] Address: [address] [place] [address], [address] [place] [phone] Director: Juan Alberto Harrell MD us Cynthia Hernandez MD LAB BLOOD ORDERABLES Final Re sult Performing Organization Address [facility] de Phone Number [facility] from Last 3 Months Insurance [employer] MED[employer] Care Teams Tire Trimmer Hand Relationship Specialty Start Date End Date Cynthia Hernandez MD [address] [facility] [place] [address] PCP - Aet 08/09/20 Cynthia Hernandez MD [address] [facility] [place] [address] PCP - General Family Medicine 01/18/24 Libby Ward NP [address] [facility] [place] [address] Nurse Practitioner Family Medicine 02/05/23
--- OUTSIDE RECORDS SUMMARY | 2025-01-11 19:01 | XMS_ITS | Encounter Summary ---
Author Organization [facility] Address [address] [place] [address] Care Team Providers Care Financial Services Technician Name Role Phone Cynthia Hernandez MD Unavailable [phone] Libby Ward NP Unavailable [phone] Cynthia Hernandez MD Primary Care Provider [phone] Reason for Visit * Reason Comments Med Refill Encounter Details Date Type Department Care Team (Late st Contact Info) Description 06/12/2024 Refill [facility] [address] [place] [address] Cynthia Hernandez MD [address] [place] [address] Dizziness Social History Tobacco Use [...] documented as of this encounter Care Teams Financial Services Technician Relationship Specialty Start Date End Date Cynthia Hernandez MD [address] [facility] [place] [address] PCP - [employer] 08/09/20 Cynthia Hernandez MD [address] [facility] [place] [address] PCP - General Family Medicine 01/18/24 Libby Ward NP [address] [place] [address] Nurse Practitioner Family Medicine 02/05/23 documented as of this encounter
--- OUTSIDE RECORDS SUMMARY | 2025-01-11 19:01 | XMS_ITS | Encounter Summary ---
Author Organization [facility] Address [address] [place] [address] Care Team Providers Care Systems Analysis Manager Name Role Phone Cynthia Hernandez MD Unavailable [phone] Libby Ward NP Unavailable [phone] Cynthia Hernandez MD Primary Care Provider [phone] Encounter Details Date Type Department Care Team (Late st Contact Info) Description 01/08/2025 Telephone [facility] [address] [place] [address] Cynthia Hernandez MD [address] [place] [address] Social History Tobacco Use Types [...] encounter Miscellaneous Notes * Telephone Encounter - Lawanda Nelson NP - 01/08/2025 8:30 AM EDT Noted * Telephone Encounter - Kari Braswell - 01/08/2025 8:07 AM EDT Fyi-- Good morning, this is Nanette Car calling. I am the daughter of Yvonne Liz. Her birthday is . She fell on Wednesday and broke her wrist. I just wanted to let Dr Washington know if we could put that note in her record. She will be seeing Dr Hendricks, the orthopedic Today at [facility], where they will set it and cast it, just wanted to put that information in the file. And we will follow up with Dr. Washington after we see Dr. Hendricks in orthopedic day. If you need to reach me, I can be found at [phone] again Nanette Car, daughter of Yvonne Liz, . Thank you so much. Have a great day. Fernanda victor. documented in this encounter Plan of Treatment Not on file documented as of this encounter Visit Diagnoses Not on filedocumented in this encounter Additional Health Concerns Assessment Noted Time PHQ-9 Depression Total Score: 0 12/30/19 25 9:00 AM EDT documented as of this encounter Care Teams Systems Analysis Manager Relationship Specialty Start Date End Date Cynthia Hernandez MD [address] [place] [address] PCP - [employer] 08/09/20 Cynthia Hernandez MD [address] [place] [id number] PCP - General Family Medicine 01/18/24 Libby Ward NP [address] [place] [address] Nurse Practitioner Family Medicine 02/05/23 documented as of this encounter
--- OUTSIDE RECORDS SUMMARY | 2025-01-11 19:01 | XMS_ITS | Encounter Summary ---
Author Organization [facility] Address [address] [place] [address] Care Team Providers Care Trial Court Justice Name Role Phone Cynthia Hernandez MD Unavailable [phone] Libby Ward NP Unavailable [phone] Cynthia Hernandez MD Primary Care Provider [phone] Encounter Details Date Type Department Care Team (Late st Contact Info) Description 01/08/2025 Telephone [facility] [address] [place] [address] Cynthia Hernandez MD [address] [place] [address] Social History Tobacco Use Types [...] encounter Miscellaneous Notes * Telephone Encounter - Adri Tang MA - 01/09/2025 8:52 AM EDT Yes they were. * Telephone Encounter - Cynthia Hernandez MD - 01/08/2025 1:47 PM EDT Was [facility] able to add on the immunofixation? documented in this encounter Plan of Treatment Not on file documented as of this encounter Visit Diagnoses Not on filedocumented in this encounter Additional Health Concerns Assessment Noted Time PHQ-9 Depression Total Score: 0 12/30/19 25 9:00 AM EDT documented as of this encounter Care Teams Trial Court Justice Relationship Specialty Start Date End Date Cynthia Hernandez MD [address] [facility] [place] [address] PCP - [employer] 08/09/20 Cynthia Hernandez MD [address] [facility] [place] [address] PCP - General Family Medicine 01/18/24 Libby Ward NP [address] [facility] [place] [address] Nurse Practitioner Family Medicine 02/05/23 documented as of this encounter
--- OUTSIDE RECORDS SUMMARY | 2025-01-11 19:01 | XMS_ITS | Encounter Summary ---
Author Organization [facility] Address [address] [place] [address] Care Team Providers Care Program Analyst Name Role Phone Cynthia Hernandez MD Unavailable Cynthia Hernandez MD Primary Care Provider Libby Ward NP Unavailable [phone] Mariam Glasgow MD Primary Care Provider Cynthia Hernandez MD Primary Care Provider [phone] Encounter Details Date Type Department Care Team (Late st Contact Info) Description 11/10/2023 Abstract [facility] [address] [place] [address] Shital Briscoe HYDROLOGIST [address] [place] [address] Social History Tobacco Use Types [...] documented as of this encounter Care Teams Program Analyst Relationship Specialty Start Date End Date Cynthia Hernandez MD [address] [facility] [place] [address] PCP - [employer] 08/09/20 Cynthia Hernandez MD [address] [facility] [place] [address] PCP - General Family Medicine 02/05/23 12/28/23 Mariam Glasgow MD [address] [place] [address] PCP - General Geriatric Medicine 12/29/23 01/17/24 Cynthia Hernandez MD [address] [facility] [place] [address] PCP - General Family Medicine 01/18/24 Libby Ward NP [address] [place] [address] Nurse Practitioner Family Medicine 02/05/23 documented as of this encounter
--- OUTSIDE RECORDS SUMMARY | 2025-01-11 19:01 | XMS_ITS | Encounter Summary ---
Author Organization [facility] Address [address] [place] [address] Care Team Providers Care Sandblaster Paint Sprayer Name Role Phone Cynthia Hernandez MD Unavailable [phone] Libby Ward NP Unavailable [phone] Cynthia Hernandez MD Primary Care Provider Encounter Details Date Type Department Care Team (Late st Contact Info) Description 12/28/2024 Bamboo flowsheet [facility] [address] [place] [address] Clara Echeverria, THELMA Social History Tobacco [...] documented as of this encounter Care Teams Sandblaster Paint Sprayer Relationship Specialty Start Date End Date Cynthia Hernandez MD [address] [place] [address] PCP - Aet 08/09/20 Cynthia Hernandez MD [address] [place] [address] PCP - General Family Medicine 01/18/24 Libby Ward NP [address] [place] [address] Nurse Practitioner Family Medicine 02/05/23 documented as of this encounter
--- OUTSIDE RECORDS SUMMARY | 2025-01-11 19:02 | XMS_ITS | CCD ---
Author Organization [facility] Care Team Providers Care Hazardous Substances Engineer Name Role Phone Ap Holland Unavailable SANJEEV [...] Facility (7 sources) Pollen Drug allergy Unknown OONi Other (1 source) Pollen Drug allergy (disorder) 3 [facility] Repository (20 sources) Octacosanol Propensity to adverse [...] Oral ly Once a day Active calcitriol 0.16653 mg oral capsule (20 sources) Vitamin D3 [...] 06/13/2024 Discontinued (Reorder) [facility] Metoprolol Succinate 50 MG [...] (COVID-19) RNA RADHA+probe Ql (Unsp spec) Negative [facility] No Panel Informationon 09-26 FLU A Negative [facility] FLU B Negative [facility] Interpretation and review of laboratory results Normal [facility] CBC W Auto Differential pane l (Bld)on 06-23-2024 Basophils (Bld) [#/Vol] 11 10*3/uL [facility] Basophils/100 WBC (Bld) 0.3 % [facility] Eosinophils (Bld) [#/Vol] 68 10*3/uL [facility] Eosinophils/100 WBC (Bld) 1.9 % [facility] Erythrocyte distribution width (RBC) [Ratio] 13 % 11.0 - 15.0 % [facility] Hematocrit (Bld) [Volume fraction] 33.6 % Low 35.0 - 45.0 % [facility] Hemoglobin (Bld) [Mass/Vol] 11.9 g/dL 11.7 - 15.5 g/dL [facility] Lymphocytes (Bld) [#/Vol] 486 10*3/uL Low [facility] Lymphocytes/100 WBC (Bld) 13.5 % [facility] MCH (RBC) [Entitic mass] 36.5 pg High 27.0 - 33.0 pg [facility] MCHC (RBC) [Mass/Vol] 35.4 g/dL 32.0 - 36.0 g/dL [facility] Comment on above: For adults, a slight decrease in the calculated MCHC value (in the range of 30 to 32 g/dL) is most likely not clinically significant; however, it should be interpreted with caution in correlation with other red cell parameters and the patient's clinical condition. MCV (RBC) [Entitic vol] 103.1 fL High 80.0 - 100.0 fL [facility] Monocytes (Bld) [#/Vol] 508 10*3/uL [facility] Monocytes/100 WBC (Bld) 14.1 % [facility] Neutrophils (Bld) [#/Vol] 2527 10*3/uL [facility] Neutrophils/100 WBC (Bld) 70.2 % [facility] Platelet mean volume (Bld) [Entitic vol] 10.5 fL 7.5 - 12.5 fL [facility] Platelets (Bld) [#/Vol] 96 10*3/uL Low [facility] RBC (Bld) [#/Vol] 3.26 10*6/uL Low [facility] WBC (Bld) [#/Vol] 3.6 10*3/uL Low [facility] Laboratory - Chemistry and C hemistry - challengeon 06-23-2024 Albumin [Mass/Vol] 3.6 g/dL 3.6 - 5.1 g/dL [facility] Albumin/Globulin [Mass ratio] 1.6 {ratio} [facility] ALP [Catalytic activity/Vol] 72 U/L 37 - 153 U/L [facility] ALT [Catalytic activity/Vol] 23 U/L 6 - 29 U/L [facility] AST [Catalytic activity/Vol] 20 U/L 10 - 35 U/L [facility] Bilirubin [Mass/Vol] 0.7 mg/dL 0.2 - 1 .2 mg/dL [facility] Calcium [Mass/Vol] 9.2 mg/dL 8.6 - 10. 4 mg/dL [facility] Chloride [Moles/Vol] 103 mmol/L 98 - 11 0 mmol/L [facility] CO2 [Moles/Vol] 29 mmol/L 20 - 32 mmol/L [facility] Cobalamin (Vitamin B12) [Mass/Vol] 222 pg/mL 200 - 1100 pg/mL [facility] Comment on above: Please Note: Although [...] 0.98 mg/dL High 0.60 - 0.95 mg/dL [facility] GFR/1.73 sq M.predicted among non-blacks MDRD (S/P/Bld) [Vol rate/Area] 58 mL/min/{1.73_m2} Low > OR = 60 mL/min/1.73m2 [facility] Globulin (S) [Mass/Vol] 2.2 g/dL [facility] Glucose [Mass/Vol] 146 mg/dL High 65 - 99 mg/dL [facility] Comment on above: Fasting reference interval For someone without known diabetes, a glucose value >125 mg/dL indicates that they may have diabetes and this should be confirmed with a follow-up test. Potassium [Moles/Vol] 3.6 mmol/L 3.5 - 5.3 mmol/L [facility] Protein [Mass/Vol] 5.8 g/dL Low 6.1 - 8.1 g/dL [facility] Sodium [Moles/Vol] 138 mmol/L 135 - 146 mmol/L [facility] TSH Qn 2.26 m[IU]/L [facility] Urea nitrogen [Mass/Vol] 27 mg/dL High 7 - 25 mg/dL [facility] Urea nitrogen/Creatinine [Mass ratio] 28 mg/mg High [facility] Lipid 1996 panelon 4 Cholesterol [Mass/Vol] 174 mg/dL NINF - 200 mg/dL [facility] Cholesterol in HDL [Mass/Vol] 61 mg/dL > OR = 50 [facility] Cholesterol in LDL [Mass/Vol] 86 mg/dL mg/dL (calc) [facility] Comment on above: Reference range: <10 [...] LDL-C. Georgi SS et al. CLAUDIA. 2013;310(19): 8748-0540 (http://education.Panève/faq/FAF135) Cholesterol non HDL [Mass/Vol] 113 mg/dL [facility] Comment on above: For patients with di abetes plus 1 major ASCVD risk factor, treating to a non-HDL-C goal of <100 mg/dL (LDL-C of <70 mg/dL) is considered a therapeutic option. Cholesterol.total/Cho lesterol in HDL [Mass ratio] 2.9 {ratio} [facility] Triglyceride [Mass/Vol] 168 mg/dL High [facility] - 150 mg/dL [facility] No Panel Informationon 06-23 Interpretation and review of laboratory results Abnormal [facility] Performing Organization Information Site ID: QPT Name: [facility] Address: [address] [place] [address], [address] [place] [id number] Director: Juan Alberto Harrell MD [facility] Urinalysis macro (dipstick) panel (U)on 05-18-2024 Bilirubin, UA Negative Negative - 4(70) +++ mg/dL [facility] Blood, UA Negative Negative - 50 Mikal/mcL [facility] Clarity, UA Cloudy [facility] Color, UA Yellow [facility] Glucose, UA Negative Negative - 2000(110) ++++ mg/dL [facility] Ketones, UA Negative Negative - 160(16) ++++ mg/dL [facility] Leukocytes, UA Positive Negative - 500+++ Dustin/mcL [facility] Nitrite, UA Negative Negative - Positive [facility] pH, UA 5.0 5 - 9 [facility] Protein, UA Positive Negative - 2000(20) ++++ mg/dL [facility] Spec Grav, UA 1.005 1 - 1.03 [facility] Urobilinogen, UA 1.0 0.2 - 12 mg/dL [facility] William 10-08-2023 L Specimen: [id number] Received: 10/11/23 Status: MARUI Ga Num: [id number] Spec Type: Surgical Subm Dr: Charles Hendricks Tissues: A Femoral Head - Fracture (RT HIP) Procedures: HE/2, Gross/Micro L4, Decalcification Age/ Patient Sex Location Account Attending Physician Liz,Yvonne 77/F LABELL [id number] Charles Hendricks SPEC NUM: [id number] RECD: 10/11/23 STATUS: MAURI REQ NUM: [id number] JAVI: 10/08/[address]: Charles Hendricks ENTERED: 10/11/[address]: Syd,Lab SPEC TYPE: Surgical DEPT: LUZ [...] cut surface of the femoral head is yellow-xinog, trabecular with hemorrhage at the resection margin. The marrow of the femoral neck is xiong-red, trabecular. Psychiatric Mental Health Nurse are submitted following decalcification in 2 cassettes as follows: A1 - Femoral head A2 - Reamings from femoral neck CPT Codes 04646, 87145 -------- -------- Specimen: [id number] Received: 10/11/23 Status: MAURI Roblerolaurent Num: [id number] Spec Type: Surgical Subm Dr: Charles Hendricks Tissues: A Femoral Head - Fracture (RT HIP) Procedures: HE/2, Gross/Micro L4, Decalcification -------- Patient: Yvonne Liz [id number] (Continued) -------- Signed (signature on file) Agatha Brantley MD 10/18/23 1237 Normal [facility] XR hip RT min 2V(w/wo pelvis )*on 05-10-2023 XR hip RT min 2V(w/wo pelvis)* [address] [address] XRay Report Signed Patient: Yvonne Liz MR#: [id number] 15 : 1945 Acct:[id number] Age/Sex: 77 / F ADM Date: 05/10/23 Loc: XD Room: Type: [facility] Attending Dr: Ap Holland MD Copies [...] Nick Stokes M.D.05/10/2023 3:23 PM Dictation Location: [place] [address] Transcribed By: [facility] 05/10/23 152 Dictated By: Nick Stokes DO 05/10/23 1521 Signed By: 05/10/23 1523 [facility] XR Spine Lumbar Complete w/F maxi AND [place] 12-10-2022 XR Spine Lumbar Complete w/Flex AND [...] by Roosevelt Motley on 12/10/2022 1457 Normal [facility] XR Hip Complete Right*on XR Hip Complete Right* HISTORY: Posterior hip radiating pain falls x 2 years FINDINGS: Mild bilateral superior medial hip joint space loss. No pincer or CAM deformities. Prominent arterial calcifications. IMPRESSION: 1. 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 Report reported and signed by Bonilla Mckeon on 04/29/2022 1031 Normal [facility] Special[facility] Complete Blood Count with Au to Diffon 01-13-2022 Basophils (Bld) [#/Vol] 0.06 10*3/uL Normal 0.00-0.20 [facility] Comment on above: Performed By: #### V ITD, CMP, TSH reflex FT4, CBCAD, FE Prof #### [facility] [address] [place], [place] [id number] Basophils/100 WBC (Bld) 1.3 % Normal [facility] Comment on above: Performed By: #### V ITD, CMP, TSH reflex FT4, CBCAD, FE Prof #### [facility] [address] [place], [place] [id number] Eosinophils (Bld) [#/Vol] 0.36 10*3/uL Normal 0.02-0.50 [facility] Comment on above: Performed By: #### V ITD, CMP, TSH reflex FT4, CBCAD, FE Prof #### [facility] [address] [place], [place] [id number] Eosinophils/100 WBC (Bld) 7.6 % Normal [facility] Comment on above: Performed By: #### V ITD, CMP, TSH reflex FT4, CBCAD, FE Prof #### [facility] [address] [place], [place] [id number] Erythrocyte distribution width (RBC) [Ratio] 12.1 % Normal 11.0-15.0 [facility] Comment on above: Performed By: #### V ITD, CMP, TSH reflex FT4, CBCAD, FE Prof #### [facility] [address] [place], [place] [id number] Hematocrit (Bld) [Volume fraction] 34.0 % Low 35.0-47.0 [facility] Comment on above: Performed By: #### V ITD, CMP, TSH reflex FT4, CBCAD, FE Prof #### [facility] [address] [place], [place] [id number] Hemoglobin (Bld) [Mass/Vol] 11.9 g/dL Normal 11.6-15.5 [facility] Comment on above: Performed By: #### V ITD, CMP, TSH reflex FT4, CBCAD, FE Prof #### [facility] [address] [place], [place] [id number] Lymphocytes (Bld) [#/Vol] 1.2 10*3/uL Normal 0.9-3.9 [facility] Comment on above: Performed By: #### V ITD, CMP, TSH reflex FT4, CBCAD, FE Prof #### [facility] [address] [place], [place] [id number] Lymphocytes/100 WBC (Bld) 26.1 % Normal [facility] Comment on above: Performed By: #### V ITD, CMP, TSH reflex FT4, CBCAD, FE Prof #### [facility] [address] [place], [place] [id number] MCH (RBC) [Entitic mass] 34.0 pg High 27.0-33.0 [facility] Comment on above: Performed By: #### V ITD, CMP, TSH reflex FT4, CBCAD, FE Prof #### [facility] [address] [place], [place] [id number] MCHC (RBC) [Mass/Vol] 35.0 g/dL Normal 32.0-36.0 [facility] Comment on above: Performed By: #### V ITD, CMP, TSH reflex FT4, CBCAD, FE Prof #### [facility] [address] [place], [place] [id number] MCV (RBC) [Entitic vol] 97 fL Normal 80-100 [facility] Comment on above: Performed By: #### V ITD, CMP, TSH reflex FT4, CBCAD, FE Prof #### [facility] [address] [place], [place] [id number] Monocytes (Bld) [#/Vol] 0.4 10*3/uL Normal 0.2-0.9 [facility] Comment on above: Performed By: #### V ITD, CMP, TSH reflex FT4, CBCAD, FE Prof #### [facility] [address] [place], [place] [id number] Monocytes/100 WBC (Bld) 8.9 % Normal [facility] Comment on above: Performed By: #### V ITD, CMP, TSH reflex FT4, CBCAD, FE Prof #### [facility] [address] [place], [place] [id number] Neutrophils (Bld) [#/Vol] 2.6 10*3/uL Normal 1.5-7.8 [facility] Comment on above: Performed By: #### V ITD, CMP, TSH reflex FT4, CBCAD, FE Prof #### [facility] [address] [place], [place] [id number] Neutrophils/100 WBC (Bld) 55.9 % Normal [facility] Comment on above: Performed By: #### V ITD, CMP, TSH reflex FT4, CBCAD, FE Prof #### [facility] [address] [place], [place] [id number] Platelet mean volume (Bld) [Entitic vol] 11.00 fL Normal 7.50-12.50 [facility] Special[facility] Comment on above: Performed By: #### V ITD, CMP, TSH reflex FT4, CBCAD, FE Prof #### [facility] [address] [place], [place] [id number] Platelets (Bld) [#/Vol] 102 10*3/uL Low 140-400 [facility] Comment on above: Performed By: #### V ITD, CMP, TSH reflex FT4, CBCAD, FE Prof #### [facility] [address] [place], [place] [id number] RBC (Bld) [#/Vol] 3.50 10*6/uL Low 3.90-5.20 [facility] Comment on above: Performed By: #### V ITD, CMP, TSH reflex FT4, CBCAD, FE Prof #### [facility] [address] [place], [place] [id number] RDW-SD 42.1 fL Normal 37.0-50.0 [facility] Comment on above: Performed By: #### V ITD, CMP, TSH reflex FT4, CBCAD, FE Prof #### [facility] [address] [place], [place] [id number] WBC (Bld) [#/Vol] 4.7 10*3/uL Normal 3.8-11.0 [place] [facility] [place] [facility] Comment on above: Performed By: #### V ITD, CMP, TSH reflex FT4, CBCAD, FE Prof #### [facility] [address] [place], [place] [id number] Comprehensive Metabolic Pane [facility] 01-13-2022 Albumin [Mass/Vol] 4.2 g/dL Normal 3.6-5.1 [place] [facility] [place] [facility] Comment on above: Performed By: #### V ITD, CMP, TSH reflex FT4, CBCAD, FE Prof #### [facility] [address] [place], [place] [id number] Albumin/Globulin [Mass ratio] 1.8 {ratio} Normal 1.0-2.5 [facility] Comment on above: Performed By: #### V ITD, CMP, TSH reflex FT4, CBCAD, FE Prof #### [facility] [address] [place], [place] [id number] ALP [Catalytic activity/Vol] 83 U/L Normal 35-119 [facility] Comment on above: Performed By: #### V ITD, CMP, TSH reflex FT4, CBCAD, FE Prof #### [facility] [address] [place], [place] [id number] ALT [Catalytic activity/Vol] 28 U/L Normal 6-33 [facility] Comment on above: Result Comment: 07/09 Female reference range changed. Performed By: #### V ITD, CMP, TSH reflex FT4, CBCAD, FE Prof #### [facility] [address] [place], [place] [id number] Anion gap [Moles/Vol] 12 mmol/L Normal 12-20 [facility] Specialist Comment on above: Result Comment: Effe ctive 08/14/2019 reference range changed. Performed By: #### V ITD, CMP, TSH reflex FT4, CBCAD, FE Prof #### [facility] [address] [place], [place] [id number] AST [Catalytic activity/Vol] 36 U/L High 9-34 [facility] Comment on above: Performed By: #### V ITD, CMP, TSH reflex FT4, CBCAD, FE Prof #### [facility] [address] [place], [place] [id number] Bilirubin [Mass/Vol] 0.48 mg/dL Normal 0.30-1.20 [facility] Comment on above: Performed By: #### V ITD, CMP, TSH reflex FT4, CBCAD, FE Prof #### [facility] [address] [place], [place] [id number] BUN/CREA 19 Ratio Normal 6-22 [facility] Comment on above: Performed By: #### V ITD, CMP, TSH reflex FT4, CBCAD, FE Prof #### [facility] [address] [place], [place] [id number] Calcium [Mass/Vol] 9.5 mg/dL Normal 8.6-10.2 [facility] Comment on above: Performed By: #### V ITD, CMP, TSH reflex FT4, CBCAD, FE Prof #### [facility] [address] [place], [place] [id number] Chloride [Moles/Vol] 105 mmol/L Normal 98-107 [facility] Comment on above: Performed By: #### V ITD, CMP, TSH reflex FT4, CBCAD, FE Prof #### [facility] [address] [place], [place] [id number] CO2 [Moles/Vol] 27 mmol/L Normal 20-31 [facility] Comment on above: Performed By: #### V ITD, CMP, TSH reflex FT4, CBCAD, FE Prof #### [facility] [address] [place], [place] [id number] Creatinine [Mass/Vol] 1.0 mg/dL Normal 0.6-1.4 [facility] Comment on above: Performed By: #### V ITD, CMP, TSH reflex FT4, CBCAD, FE Prof #### [facility] [address] [place], [place] [id number] eGFRAA 67 mL/min/1.73m2 Normal >60 [facility] Comment on above: Performed By: #### V ITD, CMP, TSH reflex FT4, CBCAD, FE Prof #### [facility] [address] [place], [place] [id number] eGFRNAA 55 mL/min/1.73m2 Low >60 [facility] Comment on above: Performed By: #### V ITD, CMP, TSH reflex FT4, CBCAD, FE Prof #### [facility] [address] [place], [place] [id number] Globulin (S) [Mass/Vol] 2.3 g/dL Normal 1.9-3.7 [facility] Comment on above: Performed By: #### V ITD, CMP, TSH reflex FT4, CBCAD, FE Prof #### [facility] [address] [place], [place] [id number] Glucose [Mass/Vol] 85 mg/dL Normal 65-99 [place] [facility] Comment on above: Result Comment: For FASTING Glucose --- ADA reference ranges: Normal 65-99 mg/dl Prediabetes 100-125 Diabetes >/= 126 Performed By: #### V ITD, CMP, TSH reflex FT4, CBCAD, FE Prof #### [facility] [address] [place], [place] [id number] Potassium [Moles/Vol] 3.8 mmol/L Normal 3.5-5.5 [facility] Comment on above: Performed By: #### V ITD, CMP, TSH reflex FT4, CBCAD, FE Prof #### [facility] [address] [place], [place] [id number] Protein [Mass/Vol] 6.5 g/dL Normal 6.1-8.1 [place] [facility] Comment on above: Performed By: #### V ITD, CMP, TSH reflex FT4, CBCAD, FE Prof #### [facility] [address] [place], [place] [id number] Sodium [Moles/Vol] 140 mmol/L Normal 135-146 [place] [facility] Comment on above: Performed By: #### V ITD, CMP, TSH reflex FT4, CBCAD, FE Prof #### [facility] [address] [place], [place] [id number] Urea nitrogen [Mass/Vol] 19 mg/dL Normal 7-25 [facility] Comment on above: Performed By: #### V ITD, CMP, TSH reflex FT4, CBCAD, FE Prof #### [facility] [address] [place], [place] [id number] Iron Profileon 01-13-2022 %FESAT 45 % Normal 11-50 [facility] Comment on above: Performed By: #### V ITD, CMP, TSH reflex FT4, CBCAD, FE Prof #### [facility] [address] [place], [place] [id number] FE 129 ug/dL Normal 40-190 [facility] Comment on above: Result Comment: Refe rence range change 06/25/2017. Prior reference range F 37-145 ug/dL, M 59-158 ug/dL. Performed By: #### V ITD, CMP, TSH reflex FT4, CBCAD, FE Prof #### [facility] [address] [place], [place] [id number] TIBC 284 ug/dL Normal 250-450 [facility] Comment on above: Performed By: #### V ITD, CMP, TSH reflex FT4, CBCAD, FE Prof #### [facility] [address] [place], [place] [id number] UIBC 155 ug/dL Normal 112-347 [facility] Comment on above: Performed By: #### V ITD, CMP, TSH reflex FT4, CBCAD, FE Prof #### [facility] [address] [place], [place] [id number] TSH w/ Reflex to Free T4on 0 01-13-2022 TSH 3.100 uIU/mL Normal 0.400-4.500 [facility] Comment on above: Performed By: #### V ITD, CMP, TSH reflex FT4, CBCAD, FE Prof #### [facility] [address] [place], [place] [id number] US Venous, Bilateral, [place] 01-13-2022 US Venous, Bilateral, Lower Ext HISTORY: [...] by Bonilla Mckeon on 01/13/2022 1441 Normal [facility] Vitamin B12/Folateon 022 Cobalamin (Vitamin B12) [Mass/Vol] 258 pg/mL Normal 211-946 [facility] Comment on above: Performed By: #### B 12/Fol #### [facility] [address] [place], [place] [id number] FOL 11.6 ng/mL Normal >4.7 [facility] Comment on above: Result Comment: Refe rence range change 06/25/2017. Prior reference range F 4.8-37.3 ng/mL, M 4.5-32.2 ng/mL. Performed By: #### B 12/Fol #### [facility] [address] [place], [place] [id number] Vitamin D 25-OHon 01-13-2022 VIT D 25 OH 30 ng/ml Normal >29 [facility] Comment on above: Result Comment: Ching min D Status Deficiency <20 ng/mL Insufficiency 20-29 ng/mL Optimal 30-100 ng/mL Possible Toxicity >=150 ng/mL Performed By: #### V ITD, CMP, TSH reflex FT4, CBCAD, FE Prof #### [facility] [address] [place], [place] [id number] Vital Signs Date Time Vital Sign Value Performing Clinician Facility 10-06-2024 14:15-0500 Body height 160 cm Cynthia Leong MD Work Phone: [facility] 10-06-2024 14:15-0500 Body mass index (BMI) [Ratio] 25.9 kg/m2 Cynthia Leong MD Work Phone: [facility] 10-06-2024 14:15-0500 Body weight 66.32 kg Cynthia Leong MD Work Phone: [facility] 10-06-2024 14:15-0500 Diastolic blood pressure 90 mm[Hg] Cynthia Leong MD Work Phone: [facility] 10-06-2024 14:15-0500 Heart rate 88 /min Cynthia Leong MD Work Phone: [facility] 10-06-2024 14:15-0500 SaO2% (BldA) [Mass fraction] 97 % Cynthia Leong MD Work Phone: [facility] 10-06-2024 14:15-0500 Systolic blood pressure 138 mm[Hg] Cynthia Leong MD Work Phone: [facility] 09-26-2024 11:01-0500 Body mass index (BMI) [Ratio] 26.36 kg/m2 Roslyn Snowburg ACTUARY MANAGER Work Phone: [facility] 09-26-2024 11:01-0500 Body temperature 98.49 [degF] Roslyn Snowburg ACTUARY MANAGER Work Phone: [facility] 09-26-2024 11:01-0500 Body weight 67.5 kg Roslyn Snowburg ACTUARY MANAGER Work Phone: [facility] 09-26-2024 11:01-0500 Diastolic blood pressure 80 mm[Hg] Roslyn Hakeithenburg ACTUARY MANAGER Work Phone: [facility] 09-26-2024 11:01-0500 Heart rate 73 /min Roslyn Laurentenburg ACTUARY MANAGER Work Phone: [facility] 09-26-2024 11:01-0500 SaO2% (BldA) [Mass fraction] 95 % Roslyn Laurentenburg ACTUARY MANAGER Work Phone: [facility] 09-26-2024 11:01-0500 Systolic blood pressure 122 mm[Hg] Roslyn Hakeithenburg ACTUARY MANAGER Work Phone: [facility] 06-22-2024 16:17-0500 Body height 160 cm Cynthia Leong MD Work Phone: [facility] 06-22-2024 16:17-0500 Body mass index (BMI) [Ratio] 25.37 kg/m2 Cynthia Leong MD Work Phone: [facility] 06-22-2024 16:17-0500 Body weight 64.95 kg Cynthia Leong MD Work Phone: [facility] 06-22-2024 16:17-0500 Diastolic blood pressure 98 mm[Hg] Cynthia Leong MD Work Phone: [facility] 06-22-2024 16:17-0500 Heart rate 80 /min Cynthia Leong MD Work Phone: [facility] 06-22-2024 16:17-0500 SaO2% (BldA) [Mass fraction] 95 % Cynthia Leong MD Work Phone: [facility] 06-22-2024 16:17-0500 Systolic blood pressure 160 mm[Hg] Cynthia Leong MD Work Phone: [facility] 05-18-2024 10:14-0400 Heart rate 74 /min Divina Castellano ACTUARY MANAGER Work Phone: [facility] 05-18-2024 10:14-0400 SaO2% (BldA) [Mass fraction] 99 % Divina Castellano ACTUARY MANAGER Work Phone: [facility] 05-18-2024 09:50-0400 Body mass index (BMI) [Ratio] 24.44 kg/m2 Divina Castellano ACTUARY MANAGER Work Phone: [facility] 05-18-2024 09:50-0400 Body temperature 97.39 [degF] Divina Castellano ACTUARY MANAGER Work Phone: [facility] 05-18-2024 09:50-0400 Body weight 64.59 kg Divina Castellano ACTUARY MANAGER Work Phone: [facility] 05-18-2024 09:50-0400 Diastolic blood pressure 82 mm[Hg] Divina Castellano ACTUARY MANAGER Work Phone: [facility] 05-18-2024 09:50-0400 Systolic blood pressure 138 mm[Hg] Divina Castellano ACTUARY MANAGER Work Phone: [facility] 05-10-2023 10:45-0400 Body height 162.56 cm Ap Holland Other [facility] Other 05-10-2023 10:45-0400 Body mass index (BMI) [Ratio] 25.4 kg/m2 Ap Holland Other [facility] Other 05-10-2023 10:45-0400 Body weight 67.13 kg Ap Holland Other [facility] Other 05-10-2023 10:45-0400 Diastolic blood pressure 80 mm[Hg] Ap Skyler Other [facility] Other 05-10-2023 10:45-0400 Systolic blood pressure 122 mm[Hg] Ap Skyler Other [facility] Other 04-06-2023 11:15-0400 Body height 162.56 cm Ap Holland Other [facility] Other 04-06-2023 11:15-0400 Body mass index (BMI) [Ratio] 26.09 kg/m2 Ap Holland Other [facility] Other 04-06-2023 11:15-0400 Body weight 68.95 kg Ap Holland Other [facility] Other 04-06-2023 11:15-0400 Diastolic blood pressure 84 mm[Hg] Ap Skyler Other [facility] Other 04-06-2023 11:15-0400 Systolic blood pressure 124 mm[Hg] Ap Skyler Other [facility] Other 03-23-2023 11:30-0400 Body height 162.56 cm pA Holland Other [facility] Other 03-23-2023 11:30-0400 Body mass index (BMI) [Ratio] 26.09 kg/m2 Ap Holland Other [facility] Other 03-23-2023 11:30-0400 Body weight 68.95 kg Ap Holland Other [facility] Other 03-23-2023 11:30-0400 Diastolic blood pressure 84 mm[Hg] Ap Holland Other [facility] Other 03-23-2023 11:30-0400 Systolic blood pressure 140 mm[Hg] Ap Holland Other [facility] 03-08-2023 09:00-0400 Body height 162.56 cm Ap Holland Other [facility] 03-08-2023 09:00-0400 Body mass index (BMI) [Ratio] 26.74 kg/m2 Ap Holland Other [facility] 03-08-2023 09:00-0400 Body weight 70.67 kg Ap Holland Other [facility] Other 03-08-2023 09:00-0400 Diastolic blood pressure 80 mm[Hg] Ap Holland Other [facility] 03-08-2023 09:00-0400 SaO2% (BldA) [Mass fraction] 99 % Ap Holland Other [facility] Other 03-08-2023 09:00-0400 Systolic blood pressure 130 mm[Hg] Ap Holland Other [facility] Other Encounters Encounter Date Encounter Type Care Provider Facility Start: 01-08-2025 End: 01-08-2025 Telephone encounter Cynthia Leong MD Work Phone: [facility] Start: 01-04-2025 End: 01-04-2025 Bamboo flowsheet Clarajomar Valenzuelabley CHUCKING MACHINE SET UP OPERATOR TOOL [facility] Start: 01-04-2025 End: 01-04-2025 Bamboo flowsheet Clarajomar Valenzuelabley CHUCKING MACHINE SET UP OPERATOR TOOL [facility] Start: 01-04-2025 End: 01-04-2025 ambulatory Clara Baly CHUCKING MACHINE SET UP OPERATOR TOOL [facility] Comment on above: Lumbar [...] Start: 12-26-2024 End: 12-26-2024 Bamboo flowsheet Clara Kelbley CHUCKING MACHINE SET UP OPERATOR TOOL [facility] Start: 12-26-2024 End: 12-26-2024 Bamboo flowsheet Clara Nicolasbley CHUCKING MACHINE SET UP OPERATOR TOOL [facility] Start: 12-26-2024 End: 12-26-2024 ambulatory Clara Echeverria CHUCKING MACHINE SET UP OPERATOR TOOL [facility] Comment on above: Lumbar paraspinal mu scle spasm (Primary Dx); Weakness of both lower extremities; Frequent falls Start: 12-21-2024 End: 12-21-2024 Bamboo flowsheet Clara Baly CHUCKING MACHINE SET UP OPERATOR TOOL [facility] Start: 12-21-2024 End: 12-21-2024 Bamboo flowsheet Clara Baly CHUCKING MACHINE SET UP OPERATOR TOOL [facility] Start: 12-21-2024 End: 12-21-2024 ambulatory Clara Echeverria CHUCKING MACHINE SET UP OPERATOR TOOL [facility] Comment on above: Lumbar paraspinal mu scle spasm (Primary Dx); Weakness of both lower extremities; Frequent falls Start: 12-15-2024 End: 12-15-2024 Refill Nikki Coughlin MA [facility] Comment on above: Gastroesophageal ref lux disease without esophagitis; Mixed hyperlipidemia (CMS/HCC); Essential hypertension (CMS/HCC); Acquired hypothyroidism (CMS/HCC) Start: 12-14-2024 End: 12-14-2024 Bamboo flowsheet Clara Baly CHUCKING MACHINE SET UP OPERATOR TOOL [facility] Start: 12-14-2024 End: 12-14-2024 Bamboo flowsheet Clara Baly CHUCKING MACHINE SET UP OPERATOR TOOL [facility] Start: 12-14-2024 End: 12-14-2024 ambulatory Clara Echeverria CHUCKING MACHINE SET UP OPERATOR TOOL [facility] Comment on above: Lumbar paraspinal mu scle spasm (Primary Dx); Weakness of both lower extremities; Frequent falls Start: 12-11-2024 End: 12-11-2024 Bamboo flowsheet Clara Baly CHUCKING MACHINE SET UP OPERATOR TOOL [facility] Start: 12-11-2024 End: 12-11-2024 Bamboo flowsheet Clara Baly CHUCKING MACHINE SET UP OPERATOR TOOL [facility] Start: 12-11-2024 End: 12-12-2024 ambulatory Clara Baly CHUCKING MACHINE SET UP OPERATOR TOOL [facility] Comment on above: Lumbar paraspinal mu scle spasm (Primary Dx); Weakness of both lower extremities; Frequent falls Essential hypertensi on (CMS/HCC) Start: 12-07-2024 End: 12-07-2024 Bamboo flowsheet Shiva Agarwal PT Work Phone: [facility] Start: 12-07-2024 End: 12-07-2024 Bamboo flowsheet Shiva Conde Rubenakil PT Work Phone: [facility] Start: 12-07-2024 End: 12-07-2024 ambulatory Shiva Conde Rubenakil PT Work Phone: [facility] Comment [...] 09-26-2024 End: 09-26-2024 Bamboo flowsheet Roslyn Briscoe ACTUARY MANAGER Work Phone: [facility] Start: 09-26-2024 End: 09-26-2024 Bamboo flowsheet Roslyn Briscoe ACTUARY MANAGER Work Phone: [facility] Start: 09-26-2024 End: 09-26-2024 Office outpatient visit 15 minutes Roslyn Briscoe ACTUARY MANAGER Work Phone: [facility] Comment on above: Viral URI with cough (Primary Dx); Acute cough; Nasal congestion Start: 09-26-2024 End: 09-26-2024 ambulatory ROSLYN BRISCOE Not Available Start: 09-04-2024 End: 09-04-2024 Refill Libby Ward ACTUARY MANAGER Work Phone: [facility] Comment on [...] 07-25-2024 End: 07-25-2024 Bamboo flowsheet Mariano Ghosh CHUCKING MACHINE SET UP OPERATOR TOOL [facility] Start: 07-25-2024 End: 07-25-2024 Bamboo flowsheet Mariano Ghosh CHUCKING MACHINE SET UP OPERATOR TOOL [facility] Start: 07-25-2024 End: 07-25-2024 ambulatory Mariano Ghosh CHUCKING MACHINE SET UP OPERATOR TOOL [facility] Comment on above: Spinal stenosis, uns pecified spinal region (Primary Dx); Lumbar and sacral arthritis Start: 07-19-2024 End: 07-19-2024 ambulatory Mariano Ghosh CHUCKING MACHINE SET UP OPERATOR TOOL [facility] Comment on above: Spinal stenosis, uns pecified spinal region (Primary Dx); Lumbar and sacral arthritis Start: 07-18-2024 End: 07-19-2024 ambulatory Mariano Ghosh CHUCKING MACHINE SET UP OPERATOR TOOL [facility] Comment on above: Spinal stenosis, uns pecified spinal region (Primary Dx); Lumbar and sacral arthritis Start: 07-18-2024 End: 07-18-2024 Bamboo flowsheet Mariano Ghosh CHUCKING MACHINE SET UP OPERATOR TOOL [facility] Start: 07-18-2024 End: 07-18-2024 Bamboo flowsheet Mariano Ghosh CHUCKING MACHINE SET UP OPERATOR TOOL [facility] Start: 07-14-2024 End: 07-14-2024 Bamboo flowsheet Alana Lopez PT [facility] Start: 07-14-2024 End: 07-14-2024 Bamboo flowsheet Alana Lopez PT [facility] Start: 07-14-2024 End: 07-14-2024 ambulatory Alana Lopez PT [facility] Comment on above: Spinal stenosis, uns pecified spinal region (Primary Dx); Lumbar and sacral arthritis Start: 07-11-2024 End: 07-11-2024 ambulatory Mariano Ghosh CHUCKING MACHINE SET UP OPERATOR TOOL [facility] Comment on above: Spinal stenosis, uns pecified spinal region (Primary Dx); Lumbar and sacral arthritis Start: 07-04-2024 End: 07-04-2024 ambulatory Mariano Ghosh CHUCKING MACHINE SET UP OPERATOR TOOL [facility] Comment on above: Spinal stenosis, uns pecified spinal region (Primary Dx); Lumbar and sacral arthritis Start: 06-30-2024 End: 06-30-2024 ambulatory Mariano Ghosh CHUCKING MACHINE SET UP OPERATOR TOOL [facility] Comment on above: Spinal [...] FM Start: 06-20-2024 End: 06-20-2024 Bamboo flowsheet Marianoflavia Ghosh CHUCKING MACHINE SET UP OPERATOR TOOL [facility] Start: 06-20-2024 End: 06-20-2024 Bamboo flowsheet Mariano Ghosh CHUCKING MACHINE SET UP OPERATOR TOOL [facility] Start: 06-20-2024 End: 06-20-2024 ambulatory Mariano Stefano CHUCKING MACHINE SET UP OPERATOR TOOL [facility] Comment on above: Spinal stenosis, uns pecified spinal region (Primary Dx); Lumbar and sacral arthritis Start: 06-16-2024 End: 06-16-2024 Bamboo flowsheet Mariano Ghosh CHUCKING MACHINE SET UP OPERATOR TOOL [facility] Start: 06-16-2024 End: 06-16-2024 Bamboo flowsheet Mariano Stefano CHUCKING MACHINE SET UP OPERATOR TOOL [facility] Start: 06-16-2024 End: 06-16-2024 ambulatory Mariano Stefano CHUCKING MACHINE SET UP OPERATOR TOOL [facility] Comment on above: Spinal stenosis, uns pecified spinal region (Primary Dx); Lumbar and sacral arthritis Start: 06-14-2024 End: 06-14-2024 Bamboo flowsheet Mariano Ghosh CHUCKING MACHINE SET UP OPERATOR TOOL [facility] Start: 06-14-2024 End: 06-14-2024 Bamboo flowsheet Mariano Ghosh CHUCKING MACHINE SET UP OPERATOR TOOL [facility] Start: 06-14-2024 End: 06-14-2024 ambulatory Mariano Ghosh CHUCKING MACHINE SET UP OPERATOR TOOL [facility] Comment on above: Spinal stenosis, uns pecified spinal region (Primary Dx); Lumbar and sacral arthritis Start: 06-13-2024 End: 06-13-2024 Refill Cynthia Leong MD Work Phone: [facility] Comment on above: Essential hypertensi on (CMS/HCC) Start: 06-07-2024 End: 06-07-2024 ambulatory Mariano Ghosh CHUCKING MACHINE SET UP OPERATOR TOOL [facility] Comment on above: Spinal [...] 05-22-2024 End: 05-22-2024 Orders Only Libby Ward ACTUARY MANAGER Work Phone: [facility] Comment on above: Acute cystitis witho ut hematuria (Primary Dx) Start: 05-18-2024 End: 05-18-2024 Bamboo flowsheet Divina Castellano ACTUARY MANAGER Work Phone: [facility] Start: 05-18-2024 End: 05-18-2024 Bamboo flowsheet Divina Castellano ACTUARY MANAGER Work Phone: [facility] Start: 05-18-2024 [...] Office outpatient visit 25 minutes Divina Castellano ACTUARY MANAGER Work Phone: [facility] Comment on above: Vertigo (Primary Dx) ; Spinal stenosis, unspecified spinal region; Lumbar and sacral arthritis; Dysuria; Essential hypertension ([facility] Start: 05-18-2024 End: 05-18-2024 ambulatory DIVINA CASTELLANO Not Available Start: 05-17-2024 End: 05-17-2024 Refill Cynthia Leong MD Work Phone: [facility] Comment on above: Gastroesophageal ref lux disease without esophagitis Start: 05-15-2024 End: 05-15-2024 ambulatory Kulwant García MD Facility:[facility] Start: 04-17-2024 End: 04-17-2024 ambulatory Kulwant García MD Facility:[facility] Start: 04-03-2024 End: 04-03-2024 ambulatory Kulwant García MD Facility:[facility] Start: 03-21-2024 End: 03-21-2024 ambulatory ALANA LOPEZ Not Available Start: 03-14-2024 End: 03-14-[address] Not Available Start: 03-14-2024 End: 03-14-2024 ambulatory ALANABrooklynn LOPEZ Not Available Start: 03-13-2024 End: 03-13-2024 ambulatory DIVINAGera PARSON Not Available Start: 03-10-2024 End: 03-10-2024 ambulatory CYNTHIA LEONG Not Available Start: 02-17-2024 End: 02-17-2024 ambulatory ROSLYN BRISCOE Not Available Start: 01-18-2024 End: 01-18-2024 ambulatory ROSLYN BRISCOE Not Available Start: 10-08-2023 End: 10-08-2023 ambulatory Charles Hendricks Facility:[facility] Start: 09-27-2023 End: 09-27-2023 ambulatory Kulwant García MD Facility: [facility] Start: 09-13-2023 End: 09-13-2023 ambulatory Kulwant García MD Facility: [facility] Start: 05-10-2023 Office outpatient vi sit 25 minutes Ap Hollnad [facility] Start: 05-10-2023 End: 05-10-2023 ambulatory Ap Holland Facility:[facility] Start: 05-10-2023 End: 05-10-2023 ambulatory ACTUARY MANAGER-C Roslyn Briscoe Work Phone: [facility] Work Phone: Start: 05-10-2023 End: 05-10-2023 Patient encounter procedure ACTUARY MANAGER-C Roslyn Briscoe Work Phone: [facility] Work Phone: Start: 04-29-2023 (PROC) PROCEDURE Ap Hart [facility] Start: 04-29-2023 End: 04-29-2023 ambulatory Ap Holland Other [facility] Other Start: 04-06-2023 End: 04-06-2023 ambulatory Ap Holland Other [facility] Other Start: 04-06-2023 Office outpatient vi sit 25 minutes Ap Skyler [facility] Start: 03-23-2023 End: 03-23-2023 ambulatory Ap Holland Other [facility] Other Start: 03-23-2023 Office outpatient vi sit 15 minutes Ap Skyler [facility] Start: 03-16-2023 (PROC) PROCEDURE Apkalin Hart [facility] Start: 03-16-2023 End: 03-16-2023 ambulatory Ap Holland Other [facility] Start: 03-09-2023 End: 03-09-2023 ambulatory Ap Holland Other [facility] Other Start: 03-09-2023 Telephone encounter Ap [facility] Start: 03-08-2023 End: 03-08-2023 ambulatory Ap Holland Other [facility] Other Start: 03-08-2023 Office consultation new/estab patient 60 min Ap Skyler [facility] Procedures Date Procedure Procedure Detail Performing Clinician Start: 09-26-2024 STATUS COVID-19/FLU Pat jaspal Briscoe ACTUARY MANAGER Work Phone: Start: 06-22-2024 Complete blood count with white cell differential, automated Cynthia Leong MD Work Phone: Start: 06-22-2024 Comprehensive metabo lic panel Cynthia Leong MD Work Phone: Start: 06-22-2024 Lipid panel Cynthia castaneda MD Work Phone: Start: 06-22-2024 TSH W/REFLEX TO FT4 Swathi Leong MD Work Phone: Start: 05-18-2024 Urnls dip stick/tabl et rgnt non-auto w/o micrscp Divina Castellano ACTUARY MANAGER Work Phone: Start: 05-10-2023 Plain X-ray of right hip ACTUARY MANAGER-C Roslyn Briscoe Work Phone: Plan of Treatment Date Care Activity Detail Author Start: 2025 Medicare Annual Well ness (AWV) Medicare Annual Wellness (AWV) [facility] Start: 04-09-2025 Influenza vaccination Influenz a Vaccine (Season Ended) [facility] Start: 02-01-2025 End: 02-01-2025 ambulatory 02/01/2025 11:30 AM EDT Treatment [facility] [address] [facility] [address] [place] [address] Clara Echeverria, CHUCKING MACHINE SET UP OPERATOR TOOL [facility] Start: 01-29-2025 End: 01-29-2025 ambulatory 01/29/2025 11:00 AM EDT Treatment [facility] [address] [place] [address] [place] [address] Shiva Agarwal, PT [address] [place] [address] [place] [address] [facility] Start: 01-25-2025 End: 01-25-2025 ambulatory 01/25/2025 11:30 AM EDT Treatment [facility] [address] [place] [address] [place] [address] Hill Saunders, CHUCKING MACHINE SET UP OPERATOR TOOL [facility] Start: 01-22-2025 End: 01-22-2025 ambulatory 01/22/2025 10:30 AM EDT Treatment [facility] [address] [place] [address] [place] [address] Clara Echeverria, CHUCKING MACHINE SET UP OPERATOR TOOL [facility] Start: 01-18-2025 End: 01-18-2025 ambulatory 01/18/2025 11:30 AM EDT Treatment [facility] [address] [place] [address] [place] [address] Hill Saunders, CHUCKING MACHINE SET UP OPERATOR TOOL [facility] Start: 01-15-2025 End: 01-15-2025 ambulatory 01/15/2025 10:30 AM EDT Treatment [facility] [address] [place] [address] [place] [address] Clara Echeverria, CHUCKING MACHINE SET UP OPERATOR TOOL [facility] Start: 01-11-2025 End: 01-11-2025 ambulatory 01/11/2025 10:30 AM EDT Treatment [facility] [address] [place] [address] [place] [address] Shiva Agarwal, PT [address] [place] [address] [facility] Start: 01-08-2025 End: 01-08-2025 ambulatory 01/08/2025 1:30 PM EDT Treatment [facility] [address] [place] [place] [address] Clara Echeverria, CHUCKING MACHINE SET UP OPERATOR TOOL [facility] Start: 01-04-2025 End: 01-04-2025 ambulatory [facility] Comment on above: Arrived Start: 2024 End: 2024 Patient encounter procedure 2024 10:00 AM EDT Office Visit [facility] [address] [place] [id number] Cynthia Leong MD [address] [place] [address] [facility] Start: 12-28-2024 End: 12-28-2024 ambulatory 12/28/2024 11:30 AM EDT Treatment [facility] [address] [place] [place] [address] Clara Echeverria, CHUCKING MACHINE SET UP OPERATOR TOOL [facility] Start: 12-26-2024 End: 12-26-2024 ambulatory 12/26/2024 10:00 AM EDT Treatment [facility] [address] [place] [place] [address] Judith Echeverriaissa, CHUCKING MACHINE SET UP OPERATOR TOOL Lumbar paraspinal muscle spasm (Primary Dx); Weakness [...] Treatment [facility] [address] [facility] [address] [place] [address] Shiva Agarwal, PT [address] [facility] [address] [place] [address] [facility] Start: 12-14-2024 End: 12-14-2024 ambulatory [facility] Comment on above: Arrived Start: 12-11-2024 End: 12-11-2024 ambulatory [facility] Comment on above: Arrived Start: 12-07-2024 End: 12-07-2024 ambulatory 12/07/2024 2:00 PM EDT Evaluation [facility] [address] [facility] [address] [place] [address] Shiva Agarwal, PT [address] [facility] [address] [place] [address] Arrived [facility] Comment on above: Arrived Start: 10-06-2024 End: 10-06-2024 Patient encounter procedure 10/06/2024 2:40 PM EST Office Visit [facility] [address] [facility] [id number] Cynthia Leong MD [address] [facility] [place] [address] Arrived [facility] Comment on above: [...] EST Office Visit [facility] [address] [place] [address] Roslyn Briscoe NP [address] [facility] [place], [place] [id number] Arrived [facility] Comment on above: Arrived Start: 08-03-2024 Medicare Annual Well ness (AWV) Medicare Annual Wellness (AWV) [facility] Start: 08-03-2024 End: 08-03-2024 ambulatory 08/03/2024 12:30 PM EST Treatment [facility] [address] [place] [address] [place] [id number] Alana Lopez, PT [facility] Start: 07-31-2024 End: 07-31-2024 ambulatory 07/31/2024 12:00 PM EST Treatment [facility] [address] [place] [address] [place] [address] Mariano Ghosh, CHUCKING MACHINE SET UP OPERATOR TOOL [facility] Start: 07-28-2024 End: 07-28-2024 ambulatory 07/28/2024 1:00 PM EST Treatment [facility] [address] [place] [place] [address] Alana Lopez, PT Arrived [facility] Comment on above: Arrived Start: 07-27-2024 End: 07-27-2024 ambulatory [facility] Start: 07-25-2024 End: 07-25-2024 ambulatory [facility] Comment on above: Arrived Start: 07-19-2024 End: 07-19-2024 ambulatory 07/19/2024 1:00 PM EST Treatment [facility] [address] [facility] [address] [place] [address] Mariano Ghosh, CHUCKING MACHINE SET UP OPERATOR TOOL [facility] Start: 07-18-2024 End: 07-18-2024 ambulatory 07/18/2024 4:00 PM EST Treatment [facility] [address] [place] [address] [place] [address] Mariano Ghosh, CHUCKING MACHINE SET UP OPERATOR TOOL Arrived [facility] Comment on above: Arrived Start: 07-17-2024 End: 07-17-2024 ambulatory 07/17/2024 12:30 PM EST Treatment [facility] [address] [place] [address] [place] [address] Mariano Ghosh, CHUCKING MACHINE SET UP OPERATOR TOOL [facility] Start: 07-14-2024 End: 07-14-2024 ambulatory [facility] Comment on above: Arrived Start: 07-11-2024 End: 07-11-2024 ambulatory 07/11/2024 12:30 PM EST Treatment [facility] [address] [place] [address] [place] [address] Mariano Ghosh, CHUCKING MACHINE SET UP OPERATOR TOOL [facility] Start: 07-04-2024 End: 07-04-2024 ambulatory 07/04/2024 12:30 PM EST Treatment [facility] [address] [facility] [address] [place] [address] Mariano Ghosh, CHUCKING MACHINE SET UP OPERATOR TOOL [facility] Start: 06-30-2024 End: 06-30-2024 ambulatory 06/30/2024 12:00 PM EST Treatment [facility] [address] [facility] [address] [place] [address] Mariano Ghosh, CHUCKING MACHINE SET UP OPERATOR TOOL [facility] Start: 06-23-2024 End: 06-23-2024 ambulatory 06/23/2024 10:30 AM EST Treatment [facility] [address] [facility] [address] [place] [address] Alana Lopez, PT [facility] Start: 06-22-2024 End: 06-22-2024 Patient encounter procedure 06/22/2024 2:30 PM EST Office Visit [facility] [address] [place] [address] Cynthia Leong MD [address] [facility] [place] [address] [facility] Start: 06-20-2024 End: 06-20-2024 ambulatory 06/20/2024 2:00 PM EST Treatment [facility] [address] [facility] [address] [place] [address] Mariano Ghosh, CHUCKING MACHINE SET UP OPERATOR TOOL [facility] Start: 06-16-2024 End: 06-16-2024 ambulatory [facility] Comment on above: Arrived Start: 06-14-2024 End: 06-14-2024 ambulatory 06/14/2024 12:30 PM EST Treatment [facility] [address] [facility] [address] [place] [address] Mariano Ghosh, CHUCKING MACHINE SET UP OPERATOR TOOL [facility] Start: 06-07-2024 End: 06-07-2024 ambulatory 06/07/2024 2:30 PM EDT Treatment [facility] [address] [facility] [address] [place] [address] Mariano Ghosh, CHUCKING MACHINE SET UP OPERATOR TOOL [facility] Start: 06-05-2024 End: 06-05-2024 [...] 04-09-2024 Influenza vaccination Influenza Vacc ine (#1) [facility] Bacteria identified in Urine by Culture Urine culture Microbiology Routine Dysuria Ordered: 05/18/2024 [facility] Work Phone: Comment on above: Ordered: 05/18/2024 Immunizations Immunization Date Immunization Notes Care Provider Fa [facility] 07-08-2023 Pneumococcal Conjuga te PCV 20 Cynthia Leong MD Work Phone: [facility] 05-11-2023 influenza, high dose seasonal, preservative-free Cynthia Leong MD Work Phone: [facility] 05-11-2023 influenza virus vacc ine, unspecified formulation Cynthia Leong MD Work Phone: [facility] 06-23-2022 Influenza, High-dose Seasonal, Quadrivalent, Preservative Free Cynthia Leong MD Work Phone: [facility] 05-09-2021 Influenza, High-dose Seasonal, Quadrivalent, Preservative Free Cynthia Leong MD Work Phone: [facility] 06-21-2020 influenza, high dose seasonal, preservative-free Cynthia Leong MD Work Phone: [facility] Payers Date Payer Category Payer Private Health Insurance 2023 Self-pay 2021 Medicaid [employer] MEDICARE A DVANTAGE [id number] 2021 Medicare A[employer]NA MEDICARE A DVANTAGE AETNA MEDICARE REPLACEMENT [id number] 2021-Present [address] [place] [address] [id number] 2021 Medicare [id number] 2.16.840.1.211834.19 1943 Unknown [id number] 2.16.840.1.150045.3.579.2. 1943 Unknown [id number] 2.16.840.1.194902.3.579.2. 1943 Unknown [id number] 2.16.840.1.700376.3.579.2. 1943 Unknown [id number] 2.16.840.1.597759.3.579.2. 1943 Unknown [id number] 2.16.840.1.609428.3.579.2. 1943 Unknown [id number] 2.16.840.1.651961.3.579.2. 1258 1943 Unknown [id number] 2.16.840.1.171961.3.579.2. 1258 1943 Unknown [id number] 2.16.840.1.584560.3.579.2. 1258 1943 Unknown [id number] 2.16.840.1.020679.3.579.2. 125 1943 Unknown [id number] 2.16.840.1.333764.3.579.2. 1258 1943 Unknown [id number] 2.16.840.1.734002.3.579.2. 1258 1943 Unknown [id number] 2.16.840.1.215305.3.579.2. 1258 1943 Unknown [id number] 2.16.840.1.085925.3.579.2. 1258 1943 Unknown [id number] 2.16.840.1.159831.3.579.2. 1258 1943 Unknown [id number] 2.16.840.1.529567.3.579.2. 1258 1943 Unknown [id number] 2.16840.1.291914.3.579.2. 1258 1943 Unknown [id number] 2.16.840.1.284323.3.579.2. 1258 1943 Unknown [id number] 2.16.840.1.230227.3.579.2. 1258 1943 Unknown [id number] 2.16.840.1.888148.3.579.2. 1258 1943 Unknown [id number] 2.16.840.1.782681.3.579.2. 1258 1943 Unknown [id number] 2.16.840.1.131540.3.579.2. 1258 1943 Unknown [id number] 2.16.840.1.682167.3.579.2. 1258 1943 Unknown [id number] 2.16.840.1.064603.3.579.2. 1258 1943 Unknown [id number] 2.16.840.1.545572.3.579.2. 1258 1943 Unknown [id number] 2.16.840.1.871062.3.579.2. 1258 1943 Unknown [id number] 2.16.840.1.259564.3.579.2. 1258 1943 Unknown [id number] 2.16.840.1.722614.3.579.2. 1258 1943 Unknown [id number] 2.16.840.1.406526.3.579.2. 1258 1943 Unknown [id number] 2.16.840.1.674259.3.579.2. 1258 1943 Unknown [id number] 2.16.840.1.309620.3.579.2. 1258 1943 Unknown [id number] 2.16.840.1.035413.3.579.2. 1258 1943 Unknown [id number] 2.16.840.1.893976.3.579.2. 1258 1943 Unknown [id number] 2.16.840.1.210103.3.579.2. 1258 1943 Unknown [id number] 2.16.840.1.183254.3.579.2. 1258 1943 Unknown [id number] 2.16840.1.989115.3.579.2. 1258 1943 Unknown [id number] 2.16.840.1.159855.3.579.2. 1258 1943 Unknown [id number] 2.16.840.1.376935.3.579.2. 1258 1943 Unknown [id number] 2.16.840.1.636871.3.579.2. 1258 1943 Unknown [id number] 2.16.840.1.285912.3.579.2. 1258 1943 Unknown [id number] 2.16.840.1.872430.3.579.2. 1259 1943 Unknown [id number] 2.16.840.1.745622.3.579.2. 9 1943 Unknown [id number] 2.16.840.1.149282.3.579.2. 9 1943 Unknown [id number] 2.16.840.1.516713.3.579.2. 1258 1945 Unknown [id number] 2.16.840.1.100334.3.579.2. 1259 Medicare [id number] 2.16.840.1.323769.19 Unknown [id number] 2.16.840.1.719490.3.579.2. 531 Unknown [id number] 2.16.840.1.623556.3.579.2. 531 Social History Date Type Detail Facility Start: 09-02-2023 End: 2024 Sex Assigned At [facility] [employer] Other Start: 1945 Sex Assigned At Female F [facility] Start: 02-05-2023 Tobacco smoking stat [facility] Never smoked tobacco [facility] Work Phone: [...] Gender identity Identifies as female gender (finding) [facility] Start: 09-26-2024 Alcohol Comment Caffeine intak e : 1-2 cups/day coffee [facility] Clinical Notes 03-08-2023 to 01-08-2025 Telephone Encounter - Cynthia Leong MD - 01/08/2025 1:47 PM EDTTelephone Encounter - Cynthia Leong MD - 01/08/2025 1:47 PM EDTTelephone Encounter - Kari Braswell - 01/08/2025 8:07 AM EDT Note Date & Type Note Facility 01-08-2025 Telephone encount er Note Was [facility] able to add on the immunofixation? [facility] [facility] 01-08-2025 Miscellaneous Notes Formattin g of this note might be different from the original. Was [facility] able to add on the immunofixation? documented in this encounter [facility] 01-08-2025 Telephone encount er Note Fyi-- Good morning, this is Nanette Car calling. I am the daughter of Yvonne Liz. Her birthday is . She fell on Wednesday and broke her wrist. I just wanted to let Dr Washington know if we could put that note in her record. She will be seeing Dr Hendricks, the orthopedic Today at [facility], where they will set it and cast it, just wanted to put that information in the file. And we will follow up with Dr. Washington after we see Dr. Hendricks in orthopedic day. If you need to reach me, I can be found at [phone] again Nanette Car, daughter of Yvonne Liz, [phone]. Thank you so much. Have a great day. Fernanda victor. [facility] 01-08-2025 Miscellaneous Notes Formattin g of this note might be different from the original. Fyi-- Good morning, this is Nanette Joceline calling. I am the daughter of Yvonne Liz. Her birthday is . She fell on Wednesday and broke her wrist. I just wanted to let Dr Washington know if we could put that note in her record. She will be seeing Dr Hendricks, the orthopedic Today at [facility], where they will set it and cast it, just wanted to put that information in the file. And we will follow up with Dr. Washington after we see Dr. Hendricks in orthopedic day. If you need to reach me, I can be found at [phone] again Nanette Car, daughter of Yvonne Liz, [phone]. Thank you so much. Have a great day. Fernanda victor. documented in this encounter [facility] 01-02-2025 History of Presen t illness Narrative [...] to be instructed in home exercise program. Metal Spray Operator Goals: To be met in 10 [...] sign below. Date: documented in this encounter [facility] 12-15-2024 Miscellaneous Notes Formattin g of this note might be different from the original. Refills sent. Pharmacy and dosage correct documented in this encounter [facility] 12-15-2024 Telephone encount er Note Refills sent. [facility] 12-15-2024 Telephone encount er Note Pharmacy and dosage correct [facility] 12-07-2024 History of Presen t illness Narrative [...] to be instructed in home exercise program. Custodial Goals: To be met in 10 weeks [...] sign below. Date: documented in this encounter [facility] 10-06-2024 History of Presen t illness Narrative [...] infections. The prescription will be sent to [facility]. 2. Falls. The patient reports multiple [...] are still low, further evaluation by a hyperbaric welder diver may be considered. She has previously refused [...] Other pancytopenia (CMS/HCC) documented in this encounter [facility] 09-27-2024 Telephone encount er Note Dominique called - she was in yesterday w Shilpi but is asking for an Antibiotic to be called in. She said she feels miserable . Dominique - if you could call and let her know either way, ty [phone] [facility] 09-27-2024 Miscellaneous Notes Formattin g of this note might be different from the original. Dominique called - she was in yesterday w Shilpi but is asking for an Antibiotic to be called in. She said she feels miserable . Dominique - if you could call and let her know either way, ty [phone] documented in this encounter [facility] 09-26-2024 History of Presen t illness Narrative [...] associated with rest 12/01/2018 Decreased platelet count ([facility]) 01/01/2023 Essential hypertension ([facility]) 10/15/2016 Gastro-esophageal reflux disease without esophagitis 11/24/2017 GERD (gastroesophageal reflux disease) Hypertension ([facility]) Hyperthyroidism ([facility]) Hypothyroid ([facility]) Hypothyroidism, unspecified ([facility]) 05/11/2016 Lumbar and sacral arthritis 01/01/2023 Mixed hyperlipidemia ([facility]) 10/15/2016 Nocturnal leg cramps 01/01/2023 Orthostatic hypotension [...] HIP SURGERY Right 10/07/2023 Fx fixed @ [facility] PARTIAL HYSTERECTOMY 1982 REVIEW OF SYMPTOMS: Review [...] maintain hydration, ensure adequate rest, and use bqne-cmk-[id number] analgesics such as Tylenol or Motrin as needed. She may continue with DayQuil and is also recommended to consider Mucinex. A prescription for Mucinex will be sent to [facility]. If there is no improvement in her condition by Wednesday, she should inform us. No follow-ups on file. documented in this encounter [facility] 09-04-2024 Telephone encount er Note Refills sent. [facility] 09-04-2024 Miscellaneous Notes Formattin g of this note might be different from the original. Refills sent. documented in this encounter [facility] 09-04-2024 Telephone encount er Note Refills sent. [facility] 09-04-2024 Miscellaneous Notes Formattin g of this note might be different from the original. Refills sent. documented in this encounter [facility] 08-03-2024 History of Presen t illness Narrative [...] awhile and continue with home program. Pain: 1/10 Objective: PT Evaluation (06/05/2024) LUMBAR SPINE AROM: [...] instructed in home exercise program. - met Custodial Goals: To be met in 10 weeks [...] met DISCHARGE PT documented in this encounter [facility] 07-31-2024 Telephone encount er Note Refills sent. [facility] 07-31-2024 Miscellaneous Notes Formattin g of this note might be different from the original. Refills sent. documented in this encounter [facility] 07-28-2024 History of Presen t illness [...] to be instructed in home exercise program. Metal Spray Operator Goals: To be met in 10 weeks Goal 1: Pt to report independence and compliance with home program. (Met) Goal 2: Pt to score no greater than 30/50 on Back Index indicating improved QOL. 50 - 07/11/24 (Met) Updated: Goal 3: Pt [...] sign below. Date: documented in this encounter [facility] 07-14-2024 History of Presen t illness [...] time she fell, she was trying to belt picker a toy from the floor, was not [...] to be instructed in home exercise program. Metal Spray Operator Goals: To be met in 10 weeks Goal 1: Pt to report independence and compliance with home program. (Met) Goal 2: Pt to score no greater than 30/50 on Back Index indicating improved QOL. 2050 - 07/11/24 (Met) Updated: Goal 3: Pt [...] sign below. Date: documented in this encounter [facility] 06-27-2024 History of Presen t illness [...] to be instructed in home exercise program. Custodial Goals: To be met in 10 weeks [...] sign below. Date: documented in this encounter [facility] 06-23-2024 History of Presen t illness [...] to be instructed in home exercise program. Custodial Goals: To be met in 10 weeks [...] sign below. Date: documented in this encounter [facility] 06-22-2024 History of Presen t illness [...] new medication will be sent to [facility] and should be taken once daily with [...] CBC and differential documented in this encounter [facility] 06-20-2024 History of Presen t illness Narrative Physical Therapy Treatment Visit Patient Name: Dominique Lzi Today's Date: 06/20/2024 Encounter Diagnoses Name Primary? [...] feels overall improvement since beginning PT. Pain: 2/10 Objective: PT Evaluation (06/05/2024) LUMBAR SPINE AROM: [...] to be instructed in home exercise program. Custodial Goals: To be met in 10 weeks [...] 1:09 PM EST documented in this encounter [facility] 06-13-2024 Telephone encount er Note Approving, but needs appt for additional refills. [facility] 06-13-2024 Miscellaneous Notes Formattin g of [...] pt. Thank you. documented in this encounter [facility] 06-13-2024 Telephone encount er Note 180/70 sometimes 160/70 definitely happening more frequently than family would like. Scheduling an appt for the next wk [facility] 06-13-2024 Telephone encount er Note Patient is calling for refill of metoprolol to [facility] [place]. When her b/p is high do you want her to take more of this medication? Please advise pt. Thank you. [facility] 06-07-2024 Telephone encount er Note Nanette Fox's daughter Kellie is having a lot of pain and needing to get in terry, *I can call if needed , ty [facility] [phone] [facility] 06-07-2024 Miscellaneous Notes Formattin g of [...] *I can call if needed , ty [facility] [phone] documented in this encounter [facility] 05-29-2024 History of Presen t illness [...] or 3 Meclizine yesterday, none today. Precautions: [place], falls Subjective: Pt states she continues with [...] instructed in home exercise program. - MET Custodial Goals: To be met in 10 weeks [...] PT this date. documented in this encounter [facility] 05-18-2024 Telephone encount er Note Patient daughter- Nanette is calling today re: referral. Nanette called PT and they can address one issue at a time. Is the vertigo more important that the spinal stenosis and arthritis at this time? Please advise Nanette which one you would like addressed first so she can call and get this scheduled. Nanette [phone]. Thank you. [facility] 05-18-2024 Miscellaneous Notes Formattin g of [...] can call and get this scheduled. Nanette [phone]. Thank you. documented in this encounter [facility] 05-18-2024 History of Presen t illness [...] time would recommend follow up with Dr. Loeng. Pt may benefit from a referral to [...] associated with rest 12/01/2018 Decreased platelet count ([facility]) 01/01/2023 Essential hypertension (CMS/HCC) 10/15/2016 Gastro-esophageal reflux disease without esophagitis 11/24/2017 GERD (gastroesophageal reflux disease) Hypertension (CMS/HCC) Hyperthyroidism (CMS/HCC) Hypothyroid (CMS/HCC) Hypothyroidism, unspecified (CMS/HCC) 05/11/2016 Lumbar and sacral arthritis 01/01/2023 Mixed hyperlipidemia (CMS/HCC) 10/15/2016 Nocturnal leg cramps 01/01/2023 Orthostatic hypotension [...] Next scheduled follow-up. documented in this encounter [facility] 05-10-2023 Evaluation note Encounter Date Diagnosis [...] up in 1 week for further evaluation. [facility] 08-29-2023 Evaluation note* Encounter Date Diagnosis [...] (ICD-10 - G89.29) Proceed with treatment plan. [facility] 08-15-2023 Evaluation note* Encounter Date Diagnosis [...] (ICD-10 - G89.29) Follow up as needed [facility] 07-31-2023 Evaluation note* Encounter Date Diagnosis [...] negative findings were considered in medical decision-making. Logan Ramamia Other Evaluation noteNo InformationN[facility]En[facility] Other Evaluation noteNo assessment information available [facility] Work Phone: Evaluation note* Diagnosis Gastroesophageal reflux [...] Date Medical History hypercholestolemia Medical History stenosis [facility] Reason for visit Narrative* Rehabilitation - Outpatient (Routine) - Authorized Specialty Diagnoses / Procedures Referred By Contac t Referred To Contact Physical Therapy Diagnoses Vertigo Spinal stenosis, unspecified spinal region Lumbar and sacral arthritis Procedures PA OFFICE/OUTPATIENT [facility] 60 MINUTES Divina Castellano, ACTUARY MANAGER [address] [place] [address] Phone: tel: fax: Alana Lopez PT Referral ID Status Reason Start Date Expiration Date Visits Requested Visits Authorized [id number] Authorized Specialty Services Required 11/14/2024 99 99 [facility] - Outpatient (Routine) - Authorized Specialty Diagnoses / Procedures Referred By Contac t Referred To Contact Physical Therapy Diagnoses Spinal stenosis, unspecified spinal region Lumbar and sacral arthritis Procedures PA OFFICE/OUTPATIENT NEW [facility]DM 60 MINUTES Divina Castellano, ACTUARY MANAGER [address] [place] [address] Phone: tel: fax: Alana Lopez, PT Referral ID Status Reason Start Date Expiration Date Visits Requested Visits Authorized [id number] Authorized Specialty Services Required 05/14/2025 1 90 [facility] Rehabilitation - Outpatient (Routine) - Authorized Specialty Diagnoses / Procedures Referred By Contac t Referred To Contact Physical Therapy Diagnoses Spinal stenosis, unspecified spinal region Lumbar and sacral arthritis Procedures PA OFFICE/OUTPATIENT NEW HIGH MDM 60 MINUTES Divina Castellano, ACTUARY MANAGER [address] [place] [address] Phone: tel: fax: Alana Lopez, PT Referral ID Status Reason Start Date Expiration Date Visits Requested Visits Authorized [id number] Authorized Specialty Services Required 08/08/2024 1 90 [facility]* Rehabilitation - Outpatient (Routine) - Closed Specialty Diagnoses / Procedures Referred By Contac t Referred To Contact Physical Therapy Diagnoses Spinal stenosis, unspecified spinal region Lumbar and sacral arthritis Procedures PA OFFICE/OUTPATIENT NEW HIGH MDM 60 MINUTES Divina Castellano, ACTUARY MANAGER [address] [place] [address] Phone: tel: fax: Alana Lopez, PT Referral ID Status Reason Start Date Expiration Date V isits Requested Visits Authorized [id number] Closed Specialty Services Required 06/05/2024 08/08/2024 1 90 [facility] Rehabilitation - Outpatient (Routine) - Authorized Specialty Diagnoses / Procedures Referred By Contac t Referred To Contact Physical Therapy Diagnoses Spinal stenosis, lumbar region with neurogenic claudication Procedures PA PHYSICAL THERAPY EVALUATION LOW COMPLEX 20 MINS PA OFFICE/OUTPATIENT NEW HIGH MDM 60 MINUTES Kulwant García MD [address] [place] [address] Phone: tel: fax: Shiva Agarwal, PT [address] [facility] [address] [place] [address] Phone: tel: fax: Referral ID Status Reason Start Date Expiration Date V isits Requested Visits Authorized [id number] Authorized 12/01/2024 05/30/2025 99 99 [facility]* Rehabilitation - Outpatient (Routine) - Authorized Specialty Diagnoses / Procedures Referred By Suni conde Referred To Contact Physical Therapy Diagnoses Spinal stenosis, lumbar region with neurogenic claudication Procedures PA PHYSICAL THERAPY EVALUATION LOW COMPLEX 20 MINS PA OFFICE/OUTPATIENT NEW HIGH MDM 60 MINUTES Kulwant García MD [address] [place] [address] Phone: tel: fax: Shiva Agarwal, PT [address] [address] Phone: tel: fax: Referral ID Status Reason Start Date Expiration Date V isits Requested Visits Authorized [id number] Authorized 12/01/2024 08/08/2025 99 99 [facility] Summary Purpose Family History No Family History Records FoundNo Family History Records FoundNo Family History Records FoundNo Family History Records Found Advance Directives Advance Directive Response Recorded Date/ Time Advance Directives No May 10, 2023 11:40am Chief Complaint and Reason for Visit Chief Complaint M25.551 Reason for Referral Specialty Diagnoses / Procedures Referred By Suni conde Referred To Contact Physical Therapy Diagnoses Vertigo Spinal stenosis, unspecified spinal region Lumbar and sacral arthritis Procedures PA OFFICE/OUTPATIENT NEW HIGH MDM 60 MINUTES Divina Castellano, ACTUARY MANAGER [address] [place] [address] Alana Lopez, PT Referral ID Status Reason Start Date Expiration Date Visits Requested Visits Authorized [id number] Authorized Specialty Services Required 11/14/2024 99 99 Additional Source Comments INFORMATION SOURCE (unrecogn ized section and content) DATE CREATED AUTHOR 12/11/2022 [facility] DATE CREATED AUTHOR AUTHOR'S ORGANIZ ATION 10/19/2023 [facility] DATE CREATED AUTHOR AUTHOR'S ORGANIZ ATION 05/24/2024 [facility] DATE CREATED AUTHOR AUTHOR'S ORGANIZ ATION 01/06/2025 [facility] dical Specialists EPIC REASON FOR VISIT (unrecogniz ed section and content) Reason Onset Date Comments Vertigo 05/18/2024 Called to offer PT Eval for vertigo w/ Jaquan Lopez PT on 05/23 @ 8:00 am; requested call back terry. Call Back 05/18/2024 She contacted an d scheduled per offer 05/23 w/ Jaquan Lopez PT. Reason Comments Vertigo Reason Comments Med Refill Reason Comments Cough Reason Comments URI Fell 4 times within the past 2 weeks. Hit her head yesterday. Tender spot. Reason Comments Med Change Request Care Teams (unrecognized sec tion and content) Team Status: Active Member Role Status Dates Roslyn Briscoe NP-C Primary Care Provider Activ jeimy Team Status: Inactive Member Role Status Dates Roslyn Briscoe NP-Natalie Primary Care Provider Activ e Ap Holland MD Attending Provider Active Hazardous Substances Engineer Relationship Specialty Start Date End Date Cynthia Leong MD [address] [place] [address] PCP - [employer] 08/09/20 Cynthia Leong MD [address] [facility] [place] [address] PCP - General Family Medicine 01/18/24 Libby Ward NP [address] [place] [address] Nurse Practitioner Family Medicine 02/05/23 Hazardous Substances Engineer Relationship Specialty Start Date End Date Cynthia Leong MD [address] [place] [address] PCP - [employer] 08/09/20 Cynthia Leong MD [address] [place] [address] PCP - General Family Medicine 01/18/24 Libby Ward NP [address] [place] [address] Nurse Practitioner Family Medicine 02/05/23 Hazardous Substances Engineer Relationship Specialty Start Date End Date Cynthia Leong MD [address] [place] [address] PCP - [employer] 08/09/20 Cynthia Leong MD [address] [place] [address] PCP - General Family Medicine 01/18/24 Libby Ward NP [address] [place] [address] Nurse Practitioner Family Medicine 02/05/23 Hazardous Substances Engineer Relationship Specialty Start Date End Date Cynthia Leong MD [address] [place] [address] PCP - [employer] 08/09/20 Cynthia Leong MD [address] [place] [address] PCP - General Family Medicine 01/18/24 Libby Ward NP [address] [place] [address] Nurse Practitioner Family Medicine 02/05/23 Hazardous Substances Engineer Relationship Specialty Start Date End Date Cynthia Leong MD [address] [place] [address] PCP - [employer] 08/09/20 Cynthia Leong MD [address] [place] [address] PCP - General Family Medicine 01/18/24 Libby Ward NP [address] [place] [address] Nurse Practitioner Family Medicine 02/05/23 Hazardous Substances Engineer Relationship Specialty Start Date End Date Cynthia Leong MD [address] [place] [address] PCP - [employer] 08/09/20 Cynthia Leong MD [address] [place] [address] PCP - General Family Medicine 01/18/24 Libby Ward NP [address] [place] [address] Nurse Practitioner Family Medicine 02/05/23 Hazardous Substances Engineer Relationship Specialty Start Date End Date Cynthia Leong MD [address] [place] [address] PCP - [employer] 08/09/20 Cynthia Leong MD [address] [place] [address] PCP - General Family Medicine 01/18/24 Libby Ward NP [address] [place] [address] Nurse Practitioner Family Medicine 02/05/23 Hazardous Substances Engineer Relationship Specialty Start Date End Date Cynthia Leong MD [address] [place] [address] PCP - [employer] 08/09/20 Cynthia Leong MD [address] [place] [address] PCP - General Family Medicine 01/18/24 Libby Ward NP [address] [place] [address] Nurse Practitioner Family Medicine 02/05/23 Hazardous Substances Engineer Relationship Specialty Start Date End Date Cynthia Leong MD [address] [place] [address] PCP - [employer] 08/09/20 Cynthia Leong MD [address] [place] [address] PCP - General Family Medicine 01/18/24 Libby Ward NP [address] [place] [address] Nurse Practitioner Family Medicine 02/05/23 Hazardous Substances Engineer Relationship Specialty Start Date End Date Cynthia Leong MD [address] [place] [address] PCP - [employer] 08/09/20 Cynthia Leong MD [address] [place] [address] PCP - General Family Medicine 01/18/24 Libby Ward NP [address] [place] [address] Nurse Practitioner Family Medicine 02/05/23 Hazardous Substances Engineer Relationship Specialty Start Date End Date Cynthia Leong MD [address] [place] [address] PCP - [employer] 08/09/20 Cynthia Leong MD [address] [place] [address] PCP - General Family Medicine 01/18/24 Libby Ward NP [address] [place] [address] Nurse Practitioner Family Medicine 02/05/23 Hazardous Substances Engineer Relationship Specialty Start Date End Date Cynthia Leong MD [address] [place] [address] PCP - [employer] 08/09/20 Cynthia Leong MD [address] [place] [address] PCP - General Family Medicine 01/18/24 Libby Ward NP [address] [place] [address] Nurse Practitioner Family Medicine 02/05/23 Hazardous Substances Engineer Relationship Specialty Start Date End Date Cynthia Leong MD [address] [place] [address] PCP - [employer] 08/09/20 Cynthia Leong MD [address] [place] [address] PCP - General Family Medicine 01/18/24 Libby aWrd NP [address] [place] [address] Nurse Practitioner Family Medicine 02/05/23 Hazardous Substances Engineer Relationship Specialty Start Date End Date Cynthia Leong MD [address] [place] [address] PCP - [employer] 08/09/20 Cynthia eLong MD [address] [place] [address] PCP - General Family Medicine 01/18/24 Libby Ward NP [address] [place] [address] Nurse Practitioner Family Medicine 02/05/23 Hazardous Substances Engineer Relationship Specialty Start Date End Date Cynthia Leong MD [address] [place] [address] PCP - [employer] 08/09/20 Cynthia Leong MD [address] [place] [address] PCP - General Family Medicine 01/18/24 Libby Ward NP [address] [place] [address] Nurse Practitioner Family Medicine 02/05/23 Hazardous Substances Engineer Relationship Specialty Start Date End Date Cynthia Leong MD [address] [place] [address] PCP - [employer] 08/09/20 Cynthia Leong MD [address] [place] [address] PCP - General Family Medicine 01/18/24 Libby Ward NP [address] [place] [address] Nurse Practitioner Family Medicine 02/05/23 Hazardous Substances Engineer Relationship Specialty Start Date End Date Cynthia Leong MD [address] [place] [address] PCP - [employer] 08/09/20 Cynthia Leong MD [address] [place] [address] PCP - General Family Medicine 01/18/24 Libby Ward NP [address] [place] [address] Nurse Practitioner Family Medicine 02/05/23 Hazardous Substances Engineer Relationship Specialty Start Date End Date Cynthia Leong MD [address] [place] [address] PCP - [employer] 08/09/20 Cynthia Leong MD [address] [place] [address] PCP - General Family Medicine 01/18/24 Libby Ward NP [address] [place] [address] Nurse Practitioner Family Medicine 02/05/23 Hazardous Substances Engineer Relationship Specialty Start Date End Date Cynthia Leong MD [address] [place] [address] PCP - [employer] 08/09/20 Cynthia Leong MD [address] [place] [address] PCP - General Family Medicine 01/18/24 Libby Ward NP [address] [place] [address] Nurse Practitioner Family Medicine 02/05/23 Hazardous Substances Engineer Relationship Specialty Start Date End Date Cynthia Leong MD [address] [place] [address] PCP - [employer] 08/09/20 Cynthia Leong MD [address] [place] [address] PCP - General Family Medicine 01/18/24 Libby Ward NP [address] [place] [address] Nurse Practitioner Family Medicine 02/05/23 Hazardous Substances Engineer Relationship Specialty Start Date End Date Cynthia Leong MD [address] [place] [address] PCP - [employer] 08/09/20 Cynthia Leong MD [address] [place] [address] PCP - General Family Medicine 01/18/24 Libby Ward, ACTUARY MANAGER [address] [place] [address] Nurse Practitioner Family Medicine 02/05/23 Hazardous Substances Engineer Relationship Specialty Start Date End Date Cynthia Leong MD [address] [place] [address] PCP - [employer] 08/09/20 Cynthia Leong MD [address] [place] [address] PCP - General Family Medicine 01/18/24 Libby Ward NP [address] [place] [address] Nurse Practitioner Family Medicine 02/05/23 Hazardous Substances Engineer Relationship Specialty Start Date End Date Cynthia Leong MD [address] [place] [address] PCP - [employer] 08/09/20 Cynthia Leong MD [address] [place] [address] PCP - General Family Medicine 01/18/24 Libby Ward, ACTUARY MANAGER [address] [place] [address] Nurse Practitioner Family Medicine 02/05/23 Hazardous Substances Engineer Relationship Specialty Start Date End Date Cynthia Leong MD [address] [place] [address] PCP - [employer] 08/09/20 Cynthia Leong MD [address] [place] [address] PCP - General Family Medicine 01/18/24 Libby Ward NP [address] [place] [address] Nurse Practitioner Family Medicine 02/05/23 Hazardous Substances Engineer Relationship Specialty Start Date End Date Cynthia Leong MD [address] [place] [address] PCP - [employer] 08/09/20 Cynthia Leong MD [address] [place] [address] PCP - General Family Medicine 01/18/24 Libby Ward NP [address] [place] [address] Nurse Practitioner Family Medicine 02/05/23 Hazardous Substances Engineer Relationship Specialty Start Date End Date Cynthia Leong MD [address] [place] [address] PCP - [employer] 08/09/20 Cynthia Leong MD [address] [place] [address] PCP - General Family Medicine 01/18/24 Libby Ward NP [address] [place] [address] Nurse Practitioner Family Medicine 02/05/23 Hazardous Substances Engineer Relationship Specialty Start Date End Date Cynthia Leong MD [address] [place] [address] PCP - [employer] 08/09/20 Cynthia Leong MD [address] [place] [address] PCP - General Family Medicine 01/18/24 Libby Ward NP [address] [place] [address] Nurse Practitioner Family Medicine 02/05/23 Hazardous Substances Engineer Relationship Specialty Start Date End Date Cynthia Leong MD [address] [place] [address] PCP - [employer] 08/09/20 Cynthia Leong MD [address] [place] [address] PCP - General Family Medicine 01/18/24 Libby Ward NP [address] [place] [address] Nurse Practitioner Family Medicine 02/05/23 Hazardous Substances Engineer Relationship Specialty Start Date End Date Cynthia Leong MD [address] [place] [address] PCP - [employer] 08/09/20 Cynthia Leong MD [address] [place] [address] PCP - General Family Medicine 01/18/24 Libby Ward NP [address] [place] [address] Nurse Practitioner Family Medicine 02/05/23 Goals (unrecognized [...] BE BASED ON THE PRIMARY CLINICAL RECORDS. [facility]. provides no warranty or guarantee of the accuracy or completeness of information in this document.
--- NOTE | 2025-01-11 19:15 | XR_ITS ---
The [address] [address] Patient Name: DEXTER MCCARTHY MRN: [id number] date: 1945 Sex: F Assigned Patient Location: ER Current Patient Location: ER Accession/Order Number: [id number] Exam Date: 01/11/2025 20:56 Report Date: 01/11/2025 21:04 At the request of: GERRY SUH NP Procedure: XR elbow LT 2V 2 views left wrist plain film COMPARISON: 01/07/2025 HISTORY: Fell. Left wrist injury. Left shoulder injury. ACUTE FINDINGS: Casting artifact. Adequate bony alignment. Ulnar styloid fracture. distal radius fracture. DEGENERATIVE CHANGE: Unremarkable SOFT TISSUE FINDINGS: Unremarkable JOINT EFFUSION: None POSTOP CHANGES: None BONE MINERALIZATION: Adequate XR/XR shoulder LT min 2V IMPRESSION: Stable bony alignment. 2 views right shoulder humeral neck and tuberosity fracture. No dislocation. IMPRESSION: Mildly rotated radial neck fracture with mildly avulsed greater tuberosity fracture. Left rib series with single view chest A similar mild chronic lung changes. Moderate right hemidiaphragm elevation no acute displaced rib fracture. No pneumothorax. No pleural effusion. Atherosclerosis. IMPRESSION: No acute displaced rib fracture. No acute chest findings. 2 views left elbow Limited positioning. No acute displaced fracture. No significant joint effusion. Unremarkable soft tissues IMPRESSION: Limited positioning. No acute displaced fracture or large joint effusion. 2 views left humerus Proximal humerus fracture. No additional fracture. Adequate bony alignment. IMPRESSION: Proximal humerus fracture. No additional fracture. Impression dictated by: Nick Stokes M.D. 01/11/2025 9:04 PM Dictation Location: [employer] Electronically authenticated by: [id number] Y Date: 01/11/2025 21:04
--- NOTE | 2025-01-11 19:15 | CT_ITS ---
The [address] [address] Patient Name: DEXTER MCCARTHY MRN: [id number] date: 1945 Sex: F Assigned Patient Location: ER Current Patient Location: ER Accession/Order Number: [id number] Exam Date: 01/11/2025 20:44 Report Date: 01/11/2025 20:45 At the request of: GERRY SUH NP Procedure: CT head/brain wo con Unenhanced head CT TECHNIQUE: Contiguous axial imaging of the head. The CT exam was performed using one or more the following dose reduction techniques: Automated exposure control, adjustment of the MA and/or Kv according to patient size, or use of the iterative reconstruction technique. COMPARISON: 01/07/2025 HISTORY: Fell. Left shoulder injury. VENTRICLES: Within normal limits ATROPHY: Diffuse atrophy BRAIN PARENCHYMA: Decreased density of the white matter is most consistent with chronic small vessel disease. HEMORRHAGE: None HERNIATION: No mass effect or herniation INFARCTION: No recent vascular distribution infarction is seen. EXTRA-AXIAL FLUID COLLECTIONS None MIDBRAIN: Unremarkable OMAR: Unremarkable MEDULLA: Unremarkable SINUSES: Unremarkable ORBITS: Grossly unremarkable MASTOIDS: Unremarkable BONY STRUCTURES Intact ADDITIONAL FINDINGS: CT/CT head/brain wo con IMPRESSION: No acute findings. Impression dictated by: Nick Stokes M.D. 01/11/2025 8:45 PM Dictation Location: [place] [address] Electronically authenticated by: [id number] Y Date: 01/11/2025 20:45
--- NOTE | 2025-01-11 19:15 | XR_ITS ---
The [address] [address] Patient Name: DEXTER MCCARTHY MRN: [id number] date: 1945 Sex: F Assigned Patient Location: ER Current Patient Location: ER Accession/Order Number: [id number] Exam Date: 01/11/2025 20:56 Report Date: 01/11/2025 21:04 At the request of: GERRY SUH NP Procedure: XR elbow LT 2V 2 views left wrist plain film COMPARISON: 01/07/2025 HISTORY: Fell. Left wrist injury. Left shoulder injury. ACUTE FINDINGS: Casting artifact. Adequate bony alignment. Ulnar styloid fracture. distal radius fracture. DEGENERATIVE CHANGE: Unremarkable SOFT TISSUE FINDINGS: Unremarkable JOINT EFFUSION: None POSTOP CHANGES: None BONE MINERALIZATION: Adequate XR/XR humerus LT IMPRESSION: Stable bony alignment. 2 views right shoulder humeral neck and tuberosity fracture. No dislocation. IMPRESSION: Mildly rotated radial neck fracture with mildly avulsed greater tuberosity fracture. Left rib series with single view chest A similar mild chronic lung changes. Moderate right hemidiaphragm elevation no acute displaced rib fracture. No pneumothorax. No pleural effusion. Atherosclerosis. IMPRESSION: No acute displaced rib fracture. No acute chest findings. 2 views left elbow Limited positioning. No acute displaced fracture. No significant joint effusion. Unremarkable soft tissues IMPRESSION: Limited positioning. No acute displaced fracture or large joint effusion. 2 views left humerus Proximal humerus fracture. No additional fracture. Adequate bony alignment. IMPRESSION: Proximal humerus fracture. No additional fracture. Impression dictated by: Nick Stokes M.D. 01/11/2025 9:04 PM Dictation Location: [employer] Electronically authenticated by: [id number] Y Date: 01/11/2025 21:04
--- NOTE | 2025-01-11 19:15 | XR_ITS ---
The [address] [address] Patient Name: DEXTER MCCARTHY MRN: [id number] date: 1945 Sex: F Assigned Patient Location: ER Current Patient Location: ER Accession/Order Number: [id number] Exam Date: 01/11/2025 20:56 Report Date: 01/11/2025 21:04 At the request of: GERRY SUH NP Procedure: XR elbow LT 2V 2 views left wrist plain film COMPARISON: 01/07/2025 HISTORY: Fell. Left wrist injury. Left shoulder injury. ACUTE FINDINGS: Casting artifact. Adequate bony alignment. Ulnar styloid fracture. distal radius fracture. DEGENERATIVE CHANGE: Unremarkable SOFT TISSUE FINDINGS: Unremarkable JOINT EFFUSION: None POSTOP CHANGES: None BONE MINERALIZATION: Adequate XR/XR elbow LT 2V IMPRESSION: Stable bony alignment. 2 views right shoulder humeral neck and tuberosity fracture. No dislocation. IMPRESSION: Mildly rotated radial neck fracture with mildly avulsed greater tuberosity fracture. Left rib series with single view chest A similar mild chronic lung changes. Moderate right hemidiaphragm elevation no acute displaced rib fracture. No pneumothorax. No pleural effusion. Atherosclerosis. IMPRESSION: No acute displaced rib fracture. No acute chest findings. 2 views left elbow Limited positioning. No acute displaced fracture. No significant joint effusion. Unremarkable soft tissues IMPRESSION: Limited positioning. No acute displaced fracture or large joint effusion. 2 views left humerus Proximal humerus fracture. No additional fracture. Adequate bony alignment. IMPRESSION: Proximal humerus fracture. No additional fracture. Impression dictated by: Nick Stokes M.D. 01/11/2025 9:04 PM Dictation Location: [employer] Electronically authenticated by: [id number] Y Date: 01/11/2025 21:04
--- NOTE | 2025-01-11 19:18 | ED_ITS ---
HPI HPI - General Adult General Chief complaint: Fall Stated complaint: fall Time Seen by Provider: 01/11/25 19:08 Source: patient Mode of arrival: ambulance Limitations: no limitations History of Present Illness HPI narrative: The patient is an 79-year-old female with reported history of dementia who lives at home with her spouse and daughter who presents to the emergency department today for evaluation concerns for injuries following a reported fall. Patient's endorses the patient was in the bedroom when both he and the daughter heard a thud and the daughter went to go check on the patient and found her on the floor. There is no concern for any LOC. The patient's reports this is the second fall she has had this week and does have a history of frequent falls due to what he attributes to spinal stenosis. Patient mention she did hit the left side of her head and additionally mention she did not have any LOC. She does endorse pain to her left shoulder and left upper arm and there is some question of pain to her left elbow. Patient did arrive to the ER by ambulance and did receive 50 mcg of fentanyl and route to the hospital. The patient's does endorse she fell on 01/07 and did fracture her wrist at that time to sustaining a laceration to the left side of her face. Historically patient is on 162 mg of aspirin daily otherwise no additional antiplatelet or anticoagulant medications. Patient's endorses she is acting per her neurologic norm. Related Data Home Medications ?Medication ?Instructions ?Recorded ?Confirmed atorvastatin 10 mg tablet 10 mg PO DAILY 07/29/2309/02 levothyroxine 75 mcg tablet 75 mcg PO DAILY 07/29/23 0 01/07/25 metoprolol succinate 25 mg 25 mg PO DAILY 07/29/2309/02 tablet,extended release 24 hr omeprazole 40 mg capsule,delayed 40 mg PO DAILY 01/07/25 release acetaminophen 500 mg tablet 1,000 mg PO Q6H PRN pain 0 09/13/23 01/07/25 (Tylenol Extra Strength) lisinopril 5 mg tablet 5 mg PO DAILY 01/07/2501/07 Previous Rx's ?Medication ?Instructions ?Recorded fluticasone propionate 50 2 spray intranasal QD #16 gr ams 10/12/23 mcg/actuation nasal spray,suspension tramadol 50 mg tablet 50 mg PO Q8H PRN pain 3 days #9 01/07/25 tabs Allergies Allergy/AdvReac Type Severity Reaction Status Date / Time No Known Drug Allergies Allergy Verified 01/11/25 19:03 Opioid HPI Opioid Management Most Recent Opioid Data: Last Pain Scale 10 Today, 19:09 Review of Systems ROS Narrative Complete ROS provided by patient's spouse who was present at the bedside due to patient with history of dementia Status of ROS 10 or more systems reviewed and unremark able except as noted in history and below PFSH PFSH Medical History Essential (primary) hypertension ?I10 - Essential (primary) hypertension (ICD-10) Vertigo ?R42 - Dizziness and giddiness (ICD-10) Sinus arrhythmia seen on electrocardiogram ?I49.8 - Other specified cardiac arrhythmias (ICD-10) Hypothyroid ?E03.9 - Hypothyroidism, unspecified (ICD-10) Sacroiliac dysfunction ?M53.3 - Sacrococcygeal disorders, not elsewhere classified (ICD-10) Lumbar spondylosis ?M47.816 - Spondylosis without myelopathy or radiculopathy, lumbar region (ICD-10) Lumbar stenosis with neurogenic claudication ?M48.062 - Spinal stenosis, lumbar region with neurogenic claudication (ICD- 10) DDD (degenerative disc disease), lumbar ?M51.36 - Other intervertebral disc degeneration, lumbar region (ICD-10) Low back pain ?M54.50 - Low back pain, unspecified (ICD-10) Irregular heartbeat ?I49.9 - Cardiac arrhythmia, unspecified (ICD-10) Acid reflux ?K21.9 - Gastro-esophageal reflux disease without esophagitis (ICD-10) Rheumatoid arthritis ?M06.9 - Rheumatoid arthritis, unspecified (ICD-10) Osteoarthritis ?M19.90 - Unspecified osteoarthritis, unspecified site (ICD-10) Hearing deficit ?H91.90 - Unspecified hearing loss, unspecified ear (ICD-10) Hypertension ?I10 - Essential (primary) hypertension (ICD-10) High cholesterol ?E78.00 - Pure hypercholesterolemia, unspecified (ICD-10) Family History Father Family history of hypertension Family history of stroke Mother Family history of hypertension Family history of myocardial infarction, Onset Age: 45 Social History Within the past year, how often did you have a drink containing alcohol: monthly or less Within the past year, how often did you have six or more drinks on one occasion: never Smoking status: Never smoker Non-prescribed substance use: denies use 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 Known occupational exposures/hazards: No Highest level of school completed/degree received: Master's degree Are you now , , , , never or living with a partner: In a typical week, how many times do you talk on the telephone with family, friends, or neighbors: twice per week How often do you get together with friends or relatives: twice per week How often do you attend oriental orthodox or anglican services: 4 or more times per year Little interest or pleasure in doing things: not at all Feeling down, depressed, or hopeless: not at all Feel stressed/tense/nervous/anxious/difficulty sleeping: only a little Life stressor details: medical issues Gender Identity: female Exam Narrative Exam Narrative: Constituational: Awake/ alert, no apparent distress, well hydrated HENMT: + Ecchymosis and healing stage to left side of face, intact sutures to left cheek, external ears normal, moist oral mucous membranes and oropharynx normal Eyes: PERRL/EOMI and conjunctivae normal Neck: ROM intact, there, no edema, crepitus, deformity Chest: inspection of chest normal Respiratory: Normal respiratory effort, clear to auscultation bilaterally Cardio: regular rate and regular rhythm GI: soft to palpation and non-tender Back: nontender MSK: + Point tenderness to proximal L upper arm without surrounding edema, ecchymosis, crepitus, deformity, ROM limited at L shoulder and L elbow due to pain, + intact hard cast to L wrist/forearm, gross/fine motor movement intact to all digits of L hand, +NVI Skin: Ecchymosis to face as above, skin is otherwise warm/dry/intact Neuro: no focal deficits, A/O x 2-3 Psych: mental status grossly normal Constitutional Vital Signs, click to edit/add: Last Vital Signs Temp 98.2 F 01/11/25 18:57 Pulse 82 01/11/25 18:57 Resp 22 H 01/11/25 18:57 BP 160/96 H 01/11/25 18:57 Pulse Ox 97 01/11/25 19:13 O2 Del Method Room Air 01/11/25 19:13 Course Vital Signs Vital signs: Vital Signs Temperature 98.2 F 01/11/25 18:57 Pulse Rate 82 01/11/25 18:57 Respiratory Rate 22 H 01/11/25 18:57 Blood Pressure 160/96 H 01/11/25 18:57 Pulse Oximetry 99 01/11/25 18:57 Oxygen Delivery Method Room Air 01/11/25 18:57 Temperature 98.2 F 01/11/25 18:57 Pulse Rate 82 01/11/25 18:57 Respiratory Rate 22 H 01/11/25 18:57 Blood Pressure 160/96 H 01/11/25 18:57 Pulse Oximetry 97 01/11/25 19:13 Oxygen Delivery Method Room Air 01/11/25 19:13 Medical Decision Making MDM Narrative Medical decision making narrative: Patient is a nontoxic-appearing 79-year-old female who presented to the emergency department today for evaluation of injuries following an unwitnessed fall pain to her left shoulder. Initial examination patient with clinical evidence consistent with old head trauma as evidenced by ecchymosis throughout the entirety of the left side of her face and healing stage. Patient did endorse hitting her head tonight without any LOC. She initially was complaining of point tenderness to proximal humerus region. No concerning neurovascular motor findings on exam. No obvious clinical evidence concerning for concussion. Cervical spine is stable with negative Nexus screening. CT imaging of head without critical findings. X-ray imaging of left humerus does show a humeral head fracture otherwise x-ray imaging of the left elbow and wrist in addition to ribs and chest are stable. Review patient had been seen in the E R 01/07 following a reported fall with head injury at that time subsequent requiring sutures for laceration along the left cheek and patient at that time did fracture her left wrist. She had been seen outpatient by for this earlier this week in addition. Did discuss patient's condition with orthopedics Dr. Hendricks 21:19p regarding humeral head fracture and will plan to follow along during hospital admission. Due to multiple falls this week and plan for admission, basic labs obtained med had no critical findings. Urinalysis is pending. Patient otherwise does not appear to be exhibiting any ischemic symptoms and does appear euvolemic on exam. Additionally discussed patient's condition with hospitalist GILA Pina 21:42p -> patient for admission. Discussed the above findings and recommendations with the patient and her who was present at the bedside. All are agreeable with the plan to be admitted for further care of the above. Medical Records Medical records reviewed: Yes I reviewed the patient's medical records Lab Data Lab results reviewed: Yes I reviewed the patient's lab results Labs: Lab Results 01/11/25 Range/Units 20:21 WBC 6.7 (4.0-11.0) 10^3/uL RBC 3.24 L (4.20-5.40) 10^6/uL Hgb 11.3 L (12.0-16.0) g/dL Hct 30.7 L (36.0-48.0) % MCV 94.8 (81.0-99.0) fL MCH 34.9 H (26.7-34.0) pg MCHC 36.8 H (29.9-35.2) g/dL RDW 12.7 (11.0-15.0) % Plt Count 90 L (150-450) 10^3/uL MPV 10.4 (9.5-13.5) fL Neut % (Auto) 76.5 H (43.0-75.0) % Lymph % (Auto) 12.2 L (20.5-60.0) % [place] % (Auto) 8.3 (1.7-12.0) % Eos % (Auto) 2.1 (0.9-7.0) % Baso % (Auto) 0.6 (0.2-2.0) % Neut # (Auto) 5.1 (1.4-6.5) 10^3/uL Lymph # (Auto) 0.8 L (1.2-3.8) 10^3/uL [place] # (Auto) 0.6 (0.3-0.8) 10^3/uL Eos # (Auto) 0.1 (0.0-0.7) 10^3/uL Baso # (Auto) 0.0 (0.0-0.1) 10^3/uL Abs Immat Gran (auto) 0.02 (0.00-0.03) 10^3/uL Imm/Tot Granulo (auto) 0.3 (0.0-0.5) % Sodium 137 (136-145) mmol/L Potassium 3.4 L (3.5-5.1) mmol/L Chloride 103 (98-107) mmol/L Carbon Dioxide 24.2 (21.0-32.0) mmol/L Anion Gap 13.2 BUN 20.0 H (7.0-18.0) mg/dL Creatinine 0.97 (0.55-1.02) mg/dL Est GFR ( Amer) >60 (>=60 mL/min/1.73m^2) Est GFR (Non-Af Amer) 55 L (>=60 mL/min/1.73m^2) BUN/Creatinine Ratio 20.6 Glucose 187 H (74-106) mg/dL Calcium 9.6 (8.5-10.1) mg/dL Total Bilirubin 0.8 (0.2-1.0) mg/dL AST 20 (15-37) U/L ALT 12 L (14-59) U/L Alkaline Phosphatase 98 (46-116) U/L Total Protein 6.1 L (6.4-8.2) g/dL Albumin 2.9 L (3.4-5.0) g/dL Globulin 3.2 g/dL Albumin/Globulin Ratio 0.[address] scan - head: Attestation: I have reviewed the pertinent imaging results. Radiologist's impression: ITS Impressions Elbow X-Ray 01/11/25 19:15 IMPRESSION: Stable bony alignment. 2 views right shoulder humeral neck and tuberosity fracture. No dislocation. IMPRESSION: Mildly rotated radial neck fracture with mildly avulsed greater tuberosity fracture. Left rib series with single view chest A similar mild chronic lung changes. Moderate right hemidiaphragm elevation no acute displaced rib fracture. No pneumothorax. No pleural effusion. Atherosclerosis. IMPRESSION: No acute displaced rib fracture. No acute chest findings. 2 views left elbow Limited positioning. No acute displaced fracture. No significant joint effusion. Unremarkable soft tissues IMPRESSION: Limited positioning. No acute displaced fracture or large joint effusion. 2 views left humerus Proximal humerus fracture. No additional fracture. Adequate bony alignment. IMPRESSION: Proximal humerus fracture. No additional fracture. Impression dictated by: Nick Stokes M.D. 01/11/2025 9:04 PM Dictation Location: [id number] Electronically authenticated by: [id number] Y Date: 01/11/2025 21:[address] 01/11/25 19:15 IMPRESSION: No acute findings. Impression dictated by: Nick Stokes M.D. 01/11/2025 8:45 PM Dictation Location: [id number] Electronically authenticated by: [id number] Y Date: 01/11/2025 20:45 Humerus X-Ray 01/11/25 19:15 IMPRESSION: Stable bony alignment. 2 views right shoulder humeral neck and tuberosity fracture. No dislocation. IMPRESSION: Mildly rotated radial neck fracture with mildly avulsed greater tuberosity fracture. Left rib series with single view chest A similar mild chronic lung changes. Moderate right hemidiaphragm elevation no acute displaced rib fracture. No pneumothorax. No pleural effusion. Atherosclerosis. IMPRESSION: No acute displaced rib fracture. No acute chest findings. 2 views left elbow Limited positioning. No acute displaced fracture. No significant joint effusion. Unremarkable soft tissues IMPRESSION: Limited positioning. No acute displaced fracture or large joint effusion. 2 views left humerus Proximal humerus fracture. No additional fracture. Adequate bony alignment. IMPRESSION: Proximal humerus fracture. No additional fracture. Impression dictated by: Nick Stokes M.D. 01/11/2025 9:04 PM Dictation Location: [employer] [facility] Electronically authenticated by: [id number] Y Date: 01/11/2025 21:04 Shoulder X-Ray 01/11/25 19:15 IMPRESSION: Stable bony alignment. 2 views right shoulder humeral neck and tuberosity fracture. No dislocation. IMPRESSION: Mildly rotated radial neck fracture with mildly avulsed greater tuberosity fracture. Left rib series with single view chest A similar mild chronic lung changes. Moderate right hemidiaphragm elevation no acute displaced rib fracture. No pneumothorax. No pleural effusion. Atherosclerosis. IMPRESSION: No acute displaced rib fracture. No acute chest findings. 2 views left elbow Limited positioning. No acute displaced fracture. No significant joint effusion. Unremarkable soft tissues IMPRESSION: Limited positioning. No acute displaced fracture or large joint effusion. 2 views left humerus Proximal humerus fracture. No additional fracture. Adequate bony alignment. IMPRESSION: Proximal humerus fracture. No additional fracture. Impression dictated by: Nick Stokes M.D. 01/11/2025 9:04 PM Dictation Location: [facility] [employer] [facility] Electronically authenticated by: [id number] Y Date: 01/11/2025 21:04 XR left shoulder: Attestation: I have reviewed the pertinent imaging results. Radiologist's impression: ITS Impressions Elbow X-Ray 01/11/25 19:15 IMPRESSION: Stable bony alignment. 2 views right shoulder humeral neck and tuberosity fracture. No dislocation. IMPRESSION: Mildly rotated radial neck fracture with mildly avulsed greater tuberosity fracture. Left rib series with single view chest A similar mild chronic lung changes. Moderate right hemidiaphragm elevation no acute displaced rib fracture. No pneumothorax. No pleural effusion. Atherosclerosis. IMPRESSION: No acute displaced rib fracture. No acute chest findings. 2 views left elbow Limited positioning. No acute displaced fracture. No significant joint effusion. Unremarkable soft tissues IMPRESSION: Limited positioning. No acute displaced fracture or large joint effusion. 2 views left humerus Proximal humerus fracture. No additional fracture. Adequate bony alignment. IMPRESSION: Proximal humerus fracture. No additional fracture. Impression dictated by: Nick Stokes M.D. 01/11/2025 9:04 PM Dictation Location: [facility] [employer] [facility] Electronically authenticated by: [id number] Y Date: 01/11/2025 21:[address] 01/11/25 19:15 IMPRESSION: No acute findings. Impression dictated by: Nick Stokes M.D. 01/11/2025 8:45 PM Dictation Location: [facility] [employer] [facility] Electronically authenticated by: [id number] Y Date: 01/11/2025 20:45 Humerus X-Ray 01/11/25 19:15 IMPRESSION: Stable bony alignment. 2 views right shoulder humeral neck and tuberosity fracture. No dislocation. IMPRESSION: Mildly rotated radial neck fracture with mildly avulsed greater tuberosity fracture. Left rib series with single view chest A similar mild chronic lung changes. Moderate right hemidiaphragm elevation no acute displaced rib fracture. No pneumothorax. No pleural effusion. Atherosclerosis. IMPRESSION: No acute displaced rib fracture. No acute chest findings. 2 views left elbow Limited positioning. No acute displaced fracture. No significant joint effusion. Unremarkable soft tissues IMPRESSION: Limited positioning. No acute displaced fracture or large joint effusion. 2 views left humerus Proximal humerus fracture. No additional fracture. Adequate bony alignment. IMPRESSION: Proximal humerus fracture. No additional fracture. Impression dictated by: Nick Stokes M.D. 01/11/2025 9:04 PM Dictation Location: [facility] Electronically authenticated by: [id number] Y Date: 01/11/2025 21:04 Shoulder X-Ray 01/11/25 19:15 IMPRESSION: Stable bony alignment. 2 views right shoulder humeral neck and tuberosity fracture. No dislocation. IMPRESSION: Mildly rotated radial neck fracture with mildly avulsed greater tuberosity fracture. Left rib series with single view chest A similar mild chronic lung changes. Moderate right hemidiaphragm elevation no acute displaced rib fracture. No pneumothorax. No pleural effusion. Atherosclerosis. IMPRESSION: No acute displaced rib fracture. No acute chest findings. 2 views left elbow Limited positioning. No acute displaced fracture. No significant joint effusion. Unremarkable soft tissues IMPRESSION: Limited positioning. No acute displaced fracture or large joint effusion. 2 views left humerus Proximal humerus fracture. No additional fracture. Adequate bony alignment. IMPRESSION: Proximal humerus fracture. No additional fracture. Impression dictated by: Nick Stokes M.D. 01/11/2025 9:04 PM Dictation Location: [facility] [employer] [facility] Electronically authenticated by: [id number] Y Date: 01/11/2025 21:04 XR left humerus: Attestation: I have reviewed the pertinent imaging results. Radiologist's impression: ITS Impressions Elbow X-Ray 01/11/25 19:15 IMPRESSION: Stable bony alignment. 2 views right shoulder humeral neck and tuberosity fracture. No dislocation. IMPRESSION: Mildly rotated radial neck fracture with mildly avulsed greater tuberosity fracture. Left rib series with single view chest A similar mild chronic lung changes. Moderate right hemidiaphragm elevation no acute displaced rib fracture. No pneumothorax. No pleural effusion. Atherosclerosis. IMPRESSION: No acute displaced rib fracture. No acute chest findings. 2 views left elbow Limited positioning. No acute displaced fracture. No significant joint effusion. Unremarkable soft tissues IMPRESSION: Limited positioning. No acute displaced fracture or large joint effusion. 2 views left humerus Proximal humerus fracture. No additional fracture. Adequate bony alignment. IMPRESSION: Proximal humerus fracture. No additional fracture. Impression dictated by: Nick Stokes M.D. 01/11/2025 9:04 PM Dictation Location: [facility] [employer] [facility] Electronically authenticated by: [id number] Y Date: 01/11/2025 21:[address] 01/11/25 19:15 IMPRESSION: No acute findings. Impression dictated by: Nick Stokes M.D. 01/11/2025 8:45 PM Dictation Location: [facility] Electronically authenticated by: [id number] Y Date: 01/11/2025 20:45 Humerus X-Ray 01/11/25 19:15 IMPRESSION: Stable bony alignment. 2 views right shoulder humeral neck and tuberosity fracture. No dislocation. IMPRESSION: Mildly rotated radial neck fracture with mildly avulsed greater tuberosity fracture. Left rib series with single view chest A similar mild chronic lung changes. Moderate right hemidiaphragm elevation no acute displaced rib fracture. No pneumothorax. No pleural effusion. Atherosclerosis. IMPRESSION: No acute displaced rib fracture. No acute chest findings. 2 views left elbow Limited positioning. No acute displaced fracture. No significant joint effusion. Unremarkable soft tissues IMPRESSION: Limited positioning. No acute displaced fracture or large joint effusion. 2 views left humerus Proximal humerus fracture. No additional fracture. Adequate bony alignment. IMPRESSION: Proximal humerus fracture. No additional fracture. Impression dictated by: Nick Stokes M.D. 01/11/2025 9:04 PM Dictation Location: [facility] Electronically authenticated by: [id number] Y Date: 01/11/2025 21:04 Shoulder X-Ray 01/11/25 19:15 IMPRESSION: Stable bony alignment. 2 views right shoulder humeral neck and tuberosity fracture. No dislocation. IMPRESSION: Mildly rotated radial neck fracture with mildly avulsed greater tuberosity fracture. Left rib series with single view chest A similar mild chronic lung changes. Moderate right hemidiaphragm elevation no acute displaced rib fracture. No pneumothorax. No pleural effusion. Atherosclerosis. IMPRESSION: No acute displaced rib fracture. No acute chest findings. 2 views left elbow Limited positioning. No acute displaced fracture. No significant joint effusion. Unremarkable soft tissues IMPRESSION: Limited positioning. No acute displaced fracture or large joint effusion. 2 views left humerus Proximal humerus fracture. No additional fracture. Adequate bony alignment. IMPRESSION: Proximal humerus fracture. No additional fracture. Impression dictated by: Nick Stokes M.D. 01/11/2025 9:04 PM Dictation Location: [facility] Electronically authenticated by: [id number] Y Date: 01/11/2025 21:04 XR left elbow: Attestation: I have reviewed the pertinent imaging results. Radiologist's impression: ITS Impressions Elbow X-Ray 01/11/25 19:15 IMPRESSION: Stable bony alignment. 2 views right shoulder humeral neck and tuberosity fracture. No dislocation. IMPRESSION: Mildly rotated radial neck fracture with mildly avulsed greater tuberosity fracture. Left rib series with single view chest A similar mild chronic lung changes. Moderate right hemidiaphragm elevation no acute displaced rib fracture. No pneumothorax. No pleural effusion. Atherosclerosis. IMPRESSION: No acute displaced rib fracture. No acute chest findings. 2 views left elbow Limited positioning. No acute displaced fracture. No significant joint effusion. Unremarkable soft tissues IMPRESSION: Limited positioning. No acute displaced fracture or large joint effusion. 2 views left humerus Proximal humerus fracture. No additional fracture. Adequate bony alignment. IMPRESSION: Proximal humerus fracture. No additional fracture. Impression dictated by: Nick Stokes M.D. 01/11/2025 9:04 PM Dictation Location: [facility] Electronically authenticated by: [id number] Y Date: 01/11/2025 21:[address] 01/11/25 19:15 IMPRESSION: No acute findings. Impression dictated by: Nick Stokes M.D. 01/11/2025 8:45 PM Dictation Location: [facility] Electronically authenticated by: [id number] Y Date: 01/11/2025 20:45 Humerus X-Ray 01/11/25 19:15 IMPRESSION: Stable bony alignment. 2 views right shoulder humeral neck and tuberosity fracture. No dislocation. IMPRESSION: Mildly rotated radial neck fracture with mildly avulsed greater tuberosity fracture. Left rib series with single view chest A similar mild chronic lung changes. Moderate right hemidiaphragm elevation no acute displaced rib fracture. No pneumothorax. No pleural effusion. Atherosclerosis. IMPRESSION: No acute displaced rib fracture. No acute chest findings. 2 views left elbow Limited positioning. No acute displaced fracture. No significant joint effusion. Unremarkable soft tissues IMPRESSION: Limited positioning. No acute displaced fracture or large joint effusion. 2 views left humerus Proximal humerus fracture. No additional fracture. Adequate bony alignment. IMPRESSION: Proximal humerus fracture. No additional fracture. Impression dictated by: Nick Stokes M.D. 01/11/2025 9:04 PM Dictation Location: [facility] Electronically authenticated by: [id number] Y Date: 01/11/2025 21:04 Shoulder X-Ray 01/11/25 19:15 IMPRESSION: Stable bony alignment. 2 views right shoulder humeral neck and tuberosity fracture. No dislocation. IMPRESSION: Mildly rotated radial neck fracture with mildly avulsed greater tuberosity fracture. Left rib series with single view chest A similar mild chronic lung changes. Moderate right hemidiaphragm elevation no acute displaced rib fracture. No pneumothorax. No pleural effusion. Atherosclerosis. IMPRESSION: No acute displaced rib fracture. No acute chest findings. 2 views left elbow Limited positioning. No acute displaced fracture. No significant joint effusion. Unremarkable soft tissues IMPRESSION: Limited positioning. No acute displaced fracture or large joint effusion. 2 views left humerus Proximal humerus fracture. No additional fracture. Adequate bony alignment. IMPRESSION: Proximal humerus fracture. No additional fracture. Impression dictated by: Nick Stokes M.D. 01/11/2025 9:04 PM Dictation Location: [facility] Electronically authenticated by: [id number] Y Date: 01/11/2025 21:04 XR left wrist: Attestation: I have reviewed the pertinent imaging results. Radiologist's impression: ITS Impressions Elbow X-Ray 01/11/25 19:15 IMPRESSION: Stable bony alignment. 2 views right shoulder humeral neck and tuberosity fracture. No dislocation. IMPRESSION: Mildly rotated radial neck fracture with mildly avulsed greater tuberosity fracture. Left rib series with single view chest A similar mild chronic lung changes. Moderate right hemidiaphragm elevation no acute displaced rib fracture. No pneumothorax. No pleural effusion. Atherosclerosis. IMPRESSION: No acute displaced rib fracture. No acute chest findings. 2 views left elbow Limited positioning. No acute displaced fracture. No significant joint effusion. Unremarkable soft tissues IMPRESSION: Limited positioning. No acute displaced fracture or large joint effusion. 2 views left humerus Proximal humerus fracture. No additional fracture. Adequate bony alignment. IMPRESSION: Proximal humerus fracture. No additional fracture. Impression dictated by: Nick Stokes M.D. 01/11/2025 9:04 PM Dictation Location: [facility] Electronically authenticated by: [id number] Y Date: 01/11/2025 21:[address] 01/11/25 19:15 IMPRESSION: No acute findings. Impression dictated by: Nick Stokes M.D. 01/11/2025 8:45 PM Dictation Location: [facility] Electronically authenticated by: [id number] Y Date: 01/11/2025 20:45 Humerus X-Ray 01/11/25 19:15 IMPRESSION: Stable bony alignment. 2 views right shoulder humeral neck and tuberosity fracture. No dislocation. IMPRESSION: Mildly rotated radial neck fracture with mildly avulsed greater tuberosity fracture. Left rib series with single view chest A similar mild chronic lung changes. Moderate right hemidiaphragm elevation no acute displaced rib fracture. No pneumothorax. No pleural effusion. Atherosclerosis. IMPRESSION: No acute displaced rib fracture. No acute chest findings. 2 views left elbow Limited positioning. No acute displaced fracture. No significant joint effusion. Unremarkable soft tissues IMPRESSION: Limited positioning. No acute displaced fracture or large joint effusion. 2 views left humerus Proximal humerus fracture. No additional fracture. Adequate bony alignment. IMPRESSION: Proximal humerus fracture. No additional fracture. Impression dictated by: Nick Stokes M.D. 01/11/2025 9:04 PM Dictation Location: [facility] Electronically authenticated by: [id number] Y Date: 01/11/2025 21:04 Shoulder X-Ray 01/11/25 19:15 IMPRESSION: Stable bony alignment. 2 views right shoulder humeral neck and tuberosity fracture. No dislocation. IMPRESSION: Mildly rotated radial neck fracture with mildly avulsed greater tuberosity fracture. Left rib series with single view chest A similar mild chronic lung changes. Moderate right hemidiaphragm elevation no acute displaced rib fracture. No pneumothorax. No pleural effusion. Atherosclerosis. IMPRESSION: No acute displaced rib fracture. No acute chest findings. 2 views left elbow Limited positioning. No acute displaced fracture. No significant joint effusion. Unremarkable soft tissues IMPRESSION: Limited positioning. No acute displaced fracture or large joint effusion. 2 views left humerus Proximal humerus fracture. No additional fracture. Adequate bony alignment. IMPRESSION: Proximal humerus fracture. No additional fracture. Impression dictated by: Nick Stokes M.D. 01/11/2025 9:04 PM Dictation Location: [facility] Electronically authenticated by: [id number] Y Date: 01/11/2025 21:04 XR left ribs with chest: Attestation: I have reviewed the pertinent imaging results. Radiologist's impression: ITS Impressions Elbow X-Ray 01/11/25 19:15 IMPRESSION: Stable bony alignment. 2 views right shoulder humeral neck and tuberosity fracture. No dislocation. IMPRESSION: Mildly rotated radial neck fracture with mildly avulsed greater tuberosity fracture. Left rib series with single view chest A similar mild chronic lung changes. Moderate right hemidiaphragm elevation no acute displaced rib fracture. No pneumothorax. No pleural effusion. Atherosclerosis. IMPRESSION: No acute displaced rib fracture. No acute chest findings. 2 views left elbow Limited positioning. No acute displaced fracture. No significant joint effusion. Unremarkable soft tissues IMPRESSION: Limited positioning. No acute displaced fracture or large joint effusion. 2 views left humerus Proximal humerus fracture. No additional fracture. Adequate bony alignment. IMPRESSION: Proximal humerus fracture. No additional fracture. Impression dictated by: Nick Stokes M.D. 01/11/2025 9:04 PM Dictation Location: [facility] Electronically authenticated by: [id number] Y Date: 01/11/2025 21:[address] 01/11/25 19:15 IMPRESSION: No acute findings. Impression dictated by: Nick Stokes M.D. 01/11/2025 8:45 PM Dictation Location: [facility] Electronically authenticated by: [id number] Y Date: 01/11/2025 20:45 Humerus X-Ray 01/11/25 19:15 IMPRESSION: Stable bony alignment. 2 views right shoulder humeral neck and tuberosity fracture. No dislocation. IMPRESSION: Mildly rotated radial neck fracture with mildly avulsed greater tuberosity fracture. Left rib series with single view chest A similar mild chronic lung changes. Moderate right hemidiaphragm elevation no acute displaced rib fracture. No pneumothorax. No pleural effusion. Atherosclerosis. IMPRESSION: No acute displaced rib fracture. No acute chest findings. 2 views left elbow Limited positioning. No acute displaced fracture. No significant joint effusion. Unremarkable soft tissues IMPRESSION: Limited positioning. No acute displaced fracture or large joint effusion. 2 views left humerus Proximal humerus fracture. No additional fracture. Adequate bony alignment. IMPRESSION: Proximal humerus fracture. No additional fracture. Impression dictated by: Nick Stokes M.D. 01/11/2025 9:04 PM Dictation Location: [facility] Electronically authenticated by: [id number] Y Date: 01/11/2025 21:04 Shoulder X-Ray 01/11/25 19:15 IMPRESSION: Stable bony alignment. 2 views right shoulder humeral neck and tuberosity fracture. No dislocation. IMPRESSION: Mildly rotated radial neck fracture with mildly avulsed greater tuberosity fracture. Left rib series with single view chest A similar mild chronic lung changes. Moderate right hemidiaphragm elevation no acute displaced rib fracture. No pneumothorax. No pleural effusion. Atherosclerosis. IMPRESSION: No acute displaced rib fracture. No acute chest findings. 2 views left elbow Limited positioning. No acute displaced fracture. No significant joint effusion. Unremarkable soft tissues IMPRESSION: Limited positioning. No acute displaced fracture or large joint effusion. 2 views left humerus Proximal humerus fracture. No additional fracture. Adequate bony alignment. IMPRESSION: Proximal humerus fracture. No additional fracture. Impression dictated by: Nick Stokes M.D. 01/11/2025 9:04 PM Dictation Location: [place] [id number] Electronically authenticated by: [id number] Y Date: 01/11/2025 21:04 Discharge Plan Discharge Chief Complaint: Fall Clinical Impression: Fracture of head of humerus, Fall Patient Disposition: Admitted As Inpatient
[2025-01-11] MEDS: TRAMADOL HCL 50 MG TABLET PO (20:24)
[2025-01-11 20:28] LABS: Basophils Percent Auto 0.6 % (0.2-2.0); Eosinophils Absolute Auto 0.1 10^3/uL (0.0-0.7); Eosinophils Percent Auto 2.1 % (0.9-7.0); Hematocrit 30.7 % (36.0-48.0); Hemoglobin 11.3 g/dL (12.0-16.0); Immature Granulocytes Abs Auto 0.02 10^3/uL (0.00-0.03); Immature Granulocytes Pct Auto 0.3 % (0.0-0.5); Lymphocytes Absolute Auto 0.8 10^3/uL (1.2-3.8); Lymphocytes Percent Auto 12.2 % (20.5-60.0); Mean Corpuscular HGB Conc 36.8 g/dL (29.9-35.2); Mean Corpuscular Hemoglobin 34.9 pg (26.7-34.0); Mean Corpuscular Volume 94.8 fL (81.0-99.0); Mean Platelet Volume 10.4 fL (9.5-13.5); Monocytes Absolute Auto 0.6 10^3/uL (0.3-0.8); Monocytes Percent Auto 8.3 % (1.7-12.0); Neutrophils Absolute Auto 5.1 10^3/uL (1.4-6.5); Neutrophils Percent Auto 76.5 % (43.0-75.0); Platelet Count 90 10^3/uL (150-450); Red Blood Count 3.24 10^6/uL (4.20-5.40); Red Cell Distribution Width 12.7 % (11.0-15.0); White Blood Count 6.7 10^3/uL (4.0-11.0)
[2025-01-11 20:42] LABS: Alanine Aminotransferase 12 U/L (14-59); Albumin Globulin Ratio 0.9; Albumin Level 2.9 g/dL (3.4-5.0); Alkaline Phosphatase 98 U/L (46-116); Anion Gap 13.2; Aspartate Amino Transferase 20 U/L (15-37); BUN Creatinine Ratio 20.6; Bilirubin Total 0.8 mg/dL (0.2-1.0); Calcium 9.6 mg/dL (8.5-10.1); Carbon Dioxide 24.2 mmol/L (21.0-32.0); Chloride 103 mmol/L (98-107); Estimated GFR (African America >60 (>=60 mL/min/1.73m^2); Estimated GFR (Non-African Ame 55 (>=60 mL/min/1.73m^2); Globulin 3.2 g/dL; Glucose 187 mg/dL (74-106); Potassium 3.4 mmol/L (3.5-5.1); Sodium 137 mmol/L (136-145); Total Protein 6.1 g/dL (6.4-8.2)
[2025-01-11] MEDS: MORPHINE SULFATE 2 MG/ML SYRINGE IV (21:50)
--- OUTSIDE RECORDS SUMMARY | 2025-01-11 22:16 | XMS_ITS | CCD ---
Author Organization [facility] Care Team Providers Care Paper Sales Representative Name Role Phone Ap Holland Unavailable SANJEEV [...] Attending Unavailable CLARK, QIAN L Referring Unavailable LPOEZ, ALANA Attending Unavailable SALO, CYNTHIA Referring Unavailable [...] Facility (7 sources) Pollen Drug allergy Unknown [email or web address] Other (1 source) Pollen Drug allergy (disorder) 3 [facility] Repository (20 sources) Octacosanol Propensity [...] Oral ly Once a day Active calcitriol 0.85780 mg oral capsule (20 sources) Vitamin D3 [...] 06/13/2024 Discontinued (Reorder) take 1 capsule by [facility] once daily Metoprolol Succinate 50 MG 1 [...] (COVID-19) RNA RADHA+probe Ql (Unsp spec) Negative [facility] No Panel Informationon 09-26 FLU A Negative [facility] FLU B Negative [facility] Interpretation and review of laboratory results Normal [facility] CBC W Auto Differential pane l (Bld)on 06-23-2024 Basophils (Bld) [#/Vol] 11 10*3/uL [facility] Basophils/100 WBC (Bld) 0.3 % [facility] Eosinophils (Bld) [#/Vol] 68 10*3/uL [facility] Eosinophils/100 WBC (Bld) 1.9 % [facility] Erythrocyte distribution width (RBC) [Ratio] 13 % 11.0 - 15.0 % [facility] Hematocrit (Bld) [Volume fraction] 33.6 % Low 35.0 - 45.0 % [facility] Hemoglobin (Bld) [Mass/Vol] 11.9 g/dL 11.7 - 15.5 g/dL [facility] Lymphocytes (Bld) [#/Vol] 486 10*3/uL Low [facility] Lymphocytes/100 WBC (Bld) 13.5 % [facility] MCH (RBC) [Entitic mass] 36.5 pg High 27.0 - 33.0 pg [facility] MCHC (RBC) [Mass/Vol] 35.4 g/dL 32.0 - 36.0 g/dL [facility] Comment on above: For adults, a slight decrease in the calculated MCHC value (in the range of 30 to 32 g/dL) is most likely not clinically significant; however, it should be interpreted with caution in correlation with other red cell parameters and the patient's clinical condition. MCV (RBC) [Entitic vol] 103.1 fL High 80.0 - 100.0 fL [facility] Monocytes (Bld) [#/Vol] 508 10*3/uL [facility] Monocytes/100 WBC (Bld) 14.1 % [facility] Neutrophils (Bld) [#/Vol] 2527 10*3/uL [facility] Neutrophils/100 WBC (Bld) 70.2 % [facility] Platelet mean volume (Bld) [Entitic vol] 10.5 fL 7.5 - 12.5 fL [facility] Platelets (Bld) [#/Vol] 96 10*3/uL Low [facility] RBC (Bld) [#/Vol] 3.26 10*6/uL Low [facility] WBC (Bld) [#/Vol] 3.6 10*3/uL Low [facility] Laboratory - Chemistry and C hemistry - challengeon 06-23-2024 Albumin [Mass/Vol] 3.6 g/dL 3.6 - 5.1 g/dL [facility] Albumin/Globulin [Mass ratio] 1.6 {ratio} [facility] ALP [Catalytic activity/Vol] 72 U/L 37 - 153 U/L [facility] ALT [Catalytic activity/Vol] 23 U/L 6 - 29 U/L [facility] AST [Catalytic activity/Vol] 20 U/L 10 - 35 U/L [facility] Bilirubin [Mass/Vol] 0.7 mg/dL 0.2 - 1 .2 mg/dL [facility] Calcium [Mass/Vol] 9.2 mg/dL 8.6 - 10. 4 mg/dL [facility] Chloride [Moles/Vol] 103 mmol/L 98 - 11 0 mmol/L [facility] CO2 [Moles/Vol] 29 mmol/L 20 - 32 mmol/L [facility] Cobalamin (Vitamin B12) [Mass/Vol] 222 pg/mL 200 - 1100 pg/mL [facility] Comment on above: Please Note: Although [...] 0.98 mg/dL High 0.60 - 0.95 mg/dL [facility] GFR/1.73 sq M.predicted among non-blacks MDRD (S/P/Bld) [Vol rate/Area] 58 mL/min/{1.73_m2} Low > OR = 60 mL/min/1.73m2 [facility] Globulin (S) [Mass/Vol] 2.2 g/dL [facility] Glucose [Mass/Vol] 146 mg/dL High 65 - 99 mg/dL [facility] Comment on above: Fasting reference interval For someone without known diabetes, a glucose value >125 mg/dL indicates that they may have diabetes and this should be confirmed with a follow-up test. Potassium [Moles/Vol] 3.6 mmol/L 3.5 - 5.3 mmol/L [facility] Protein [Mass/Vol] 5.8 g/dL Low 6.1 - 8.1 g/dL [facility] Sodium [Moles/Vol] 138 mmol/L 135 - 146 mmol/L [facility] TSH Qn 2.26 m[IU]/L [facility] Urea nitrogen [Mass/Vol] 27 mg/dL High 7 - 25 mg/dL [facility] Urea nitrogen/Creatinine [Mass ratio] 28 mg/mg High [facility] Lipid 1996 panelon 4 Cholesterol [Mass/Vol] 174 mg/dL NINF - 200 mg/dL [facility] Cholesterol in HDL [Mass/Vol] 61 mg/dL > OR = 50 [facility] Cholesterol in LDL [Mass/Vol] 86 mg/dL mg/dL (calc) [facility] Comment on above: Reference range: <10 [...] LDL-C. Georgi SS et al. CLAUDIA. 2013;310(19): 7522-3122 (http://education.WineDemon/faq/UGR695) Cholesterol non HDL [Mass/Vol] 113 mg/dL [facility] Comment on above: For patients with di abetes plus 1 major ASCVD risk factor, treating to a non-HDL-C goal of <100 mg/dL (LDL-C of <70 mg/dL) is considered a therapeutic option. Cholesterol.total/Cho lesterol in HDL [Mass ratio] 2.9 {ratio} [facility] Triglyceride [Mass/Vol] 168 mg/dL High [facility] - 150 mg/dL [facility] No Panel Informationon 06-23 Interpretation and review of laboratory results Abnormal [facility] Performing Organization Information Site ID: QPT Name: [employer] [facility] Address: [address] [place] [address], [address] [place] [id number] Director: Juan Alberto Harrell MD [facility] Urinalysis macro (dipstick) panel (U)on 05-18-2024 Bilirubin, UA Negative Negative - 4(70) +++ mg/dL [facility] Blood, UA Negative Negative - 50 Mikal/mcL [facility] Clarity, UA Cloudy [facility] Color, UA Yellow [facility] Glucose, UA Negative Negative - 2000(110) ++++ mg/dL [facility] Ketones, UA Negative Negative - 160(16) ++++ mg/dL [facility] Leukocytes, UA Positive Negative - 500+++ Dustin/mcL [facility] Nitrite, UA Negative Negative - Positive [facility] pH, UA 5.0 5 - 9 [facility] Protein, UA Positive Negative - 2000(20) ++++ mg/dL [facility] Spec Grav, UA 1.005 1 - 1.03 [facility] Urobilinogen, UA 1.0 0.2 - 12 mg/dL [facility] William 10-08-2023 L Specimen: [id number] Received: 10/11/23 Status: MAURI Ga Num: [id number] Spec Type: Surgical Subm Dr: Charles Hendricks Tissues: A Femoral Head - Fracture (RT HIP) Procedures: HE/2, Gross/Micro L4, Decalcification Age/ Patient Sex Location Account Attending Physician Liz,Yvonne 77/F LABELL [id number] Charles Hendricks SPEC NUM: [id number] RECD: 10/11/23 STATUS: MAURI REQ NUM: [id number] JAVI: 10/08/[address]: Charles Hendricks ENTERED: [...] of the femoral neck is xiong-red, trabecular. Jr. Systems Administrator are submitted following decalcification in 2 cassettes as follows: A1 - Femoral head A2 - Reamings from femoral neck CPT Codes 44877, 29811 -------- -------- Specimen: [id number] Received: 10/11/23 Status: MAURI Roblerolaurent Num: [id number] Spec Type: Surgical Subm Dr: Charles Hendricks Tissues: A Femoral Head - Fracture (RT HIP) Procedures: HE/2, Gross/Micro L4, Decalcification -------- Patient: Yvonne Liz [id number] (Continued) -------- Signed (signature on file) Agatha Brantley MD 10/18/23 1237 Normal [facility] XR hip RT min 2V(w/wo pelvis )*on 05-10-2023 XR hip RT min 2V(w/wo pelvis)* [address] [address] XRay Report Signed Patient: Yvonne Liz MR#: [id number] [birth year] : 1945 Acct:[id number] Age/Sex: 77 / F ADM Date: 05/10/23 Loc: XD Room: Type: [facility] Attending Dr: Ap Holland MD Copies [...] Nick Stokes M.D.05/10/2023 3:23 PM Dictation Location: [place] [address] Transcribed By: [facility] 05/10/23 152 Dictated By: Nick Stokes DO 05/10/23 1521 Signed By: 05/10/23 1523 [facility] XR Spine Lumbar Complete w/F maxi AND [place] 12-10-2022 XR Spine Lumbar Complete w/Flex AND [...] by Roosevelt Motley on 12/10/2022 1457 Normal [facility] XR Hip Complete Right*on XR Hip Complete Right* HISTORY: Posterior hip radiating pain falls x 2 years FINDINGS: Mild bilateral superior medial hip joint space loss. No pincer or CAM deformities. Prominent arterial calcifications. IMPRESSION: 1. 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 Report reported and signed by Bonilla Mckeon on 04/29/2022 1031 Normal [facility] Specialist Complete Blood Count with Au to Diffon 01-13-2022 Basophils (Bld) [#/Vol] 0.06 10*3/uL Normal 0.00-0.20 [facility] Comment on above: Performed By: #### V ITD, CMP, TSH reflex FT4, CBCAD, FE Prof #### [facility] [address], [place] [id number] Basophils/100 WBC (Bld) 1.3 % Normal [facility] Specialist Comment on above: Performed By: #### V ITD, CMP, TSH reflex FT4, CBCAD, FE Prof #### [facility] [address], [place] [id number] Eosinophils (Bld) [#/Vol] 0.36 10*3/uL Normal 0.02-0.50 [facility] Specialist Comment on above: Performed By: #### V ITD, CMP, TSH reflex FT4, CBCAD, FE Prof #### [facility] [address], [place] [id number] Eosinophils/100 WBC (Bld) 7.6 % Normal [facility] Specialist Comment on above: Performed By: #### V ITD, CMP, TSH reflex FT4, CBCAD, FE Prof #### [facility] [address], [place] [id number] Erythrocyte distribution width (RBC) [Ratio] 12.1 % Normal 11.0-15.0 [facility] Specialist Comment on above: Performed By: #### V ITD, CMP, TSH reflex FT4, CBCAD, FE Prof #### [facility] [address], [place] [id number] Hematocrit (Bld) [Volume fraction] 34.0 % Low 35.0-47.0 [facility] Specialist Comment on above: Performed By: #### V ITD, CMP, TSH reflex FT4, CBCAD, FE Prof #### [facility] [address], [place] [id number] Hemoglobin (Bld) [Mass/Vol] 11.9 g/dL Normal 11.6-15.5 [facility] Specialist Comment on above: Performed By: #### V ITD, CMP, TSH reflex FT4, CBCAD, FE Prof #### [facility] [address], [place] [id number] Lymphocytes (Bld) [#/Vol] 1.2 10*3/uL Normal 0.9-3.9 [facility] Specialist Comment on above: Performed By: #### V ITD, CMP, TSH reflex FT4, CBCAD, FE Prof #### [facility] [address], [place] [id number] Lymphocytes/100 WBC (Bld) 26.1 % Normal [facility] Specialist Comment on above: Performed By: #### V ITD, CMP, TSH reflex FT4, CBCAD, FE Prof #### [facility] [address], [place] [id number] MCH (RBC) [Entitic mass] 34.0 pg High 27.0-33.0 [facility] Comment on above: Performed By: #### V ITD, CMP, TSH reflex FT4, CBCAD, FE Prof #### [facility] [address], [place] [id number] MCHC (RBC) [Mass/Vol] 35.0 g/dL Normal 32.0-36.0 [facility] Comment on above: Performed By: #### V ITD, CMP, TSH reflex FT4, CBCAD, FE Prof #### [facility] [address], [place] [id number] MCV (RBC) [Entitic vol] 97 fL Normal 80-100 [facility] Specialist Comment on above: Performed By: #### V ITD, CMP, TSH reflex FT4, CBCAD, FE Prof #### [facility] [address], [place] [id number] Monocytes (Bld) [#/Vol] 0.4 10*3/uL Normal 0.2-0.9 [facility] Specialist Comment on above: Performed By: #### V ITD, CMP, TSH reflex FT4, CBCAD, FE Prof #### [facility] [address], [place] [id number] Monocytes/100 WBC (Bld) 8.9 % Normal [facility] Specialist Comment on above: Performed By: #### V ITD, CMP, TSH reflex FT4, CBCAD, FE Prof #### [facility] [address], [place] [id number] Neutrophils (Bld) [#/Vol] 2.6 10*3/uL Normal 1.5-7.8 [facility] Specialist Comment on above: Performed By: #### V ITD, CMP, TSH reflex FT4, CBCAD, FE Prof #### [facility] [address], [place] [id number] Neutrophils/100 WBC (Bld) 55.9 % Normal [facility] Specialist Comment on above: Performed By: #### V ITD, CMP, TSH reflex FT4, CBCAD, FE Prof #### [facility] [address], [place] [id number] Platelet mean volume (Bld) [Entitic vol] 11.00 fL Normal 7.50-12.50 [facility] Specialist Comment on above: Performed By: #### V ITD, CMP, TSH reflex FT4, CBCAD, FE Prof #### [facility] [address], [place] [id number] Platelets (Bld) [#/Vol] 102 10*3/uL Low 140-400 [facility] Specialist Comment on above: Performed By: #### V ITD, CMP, TSH reflex FT4, CBCAD, FE Prof #### [facility] [address], [place] [id number] RBC (Bld) [#/Vol] 3.50 10*6/uL Low 3.90-5.[address] [facility] Specialist Comment on above: Performed By: #### V ITD, CMP, TSH reflex FT4, CBCAD, FE Prof #### [facility] [address], [place] [id number] RDW-SD 42.1 fL Normal 37.0-50.0 [facility] Specialist Comment on above: Performed By: #### V ITD, CMP, TSH reflex FT4, CBCAD, FE Prof #### [facility] [address], [place] [id number] WBC (Bld) [#/Vol] 4.7 10*3/uL Normal 3.8-11.0 [facility] [place] [facility] [employer] Comment on above: Performed By: #### V ITD, CMP, TSH reflex FT4, CBCAD, FE Prof #### [facility] [address], [place] [id number] [facility] 01-13-2022 Albumin [Mass/Vol] 4.2 g/dL Normal 3.6-5.1 [facility] [place] [facility] Comment on above: Performed By: #### V ITD, CMP, TSH reflex FT4, CBCAD, FE Prof #### [facility] [address], [place] [id number] Albumin/Globulin [Mass ratio] 1.8 {ratio} Normal 1.0-2.5 [facility] Online Program Coordinator Comment on above: Performed By: #### V ITD, CMP, TSH reflex FT4, CBCAD, FE Prof #### [facility] [address], [place] [id number] ALP [Catalytic activity/Vol] 83 U/L Normal 35-119 [facility] Program Coordinator Comment on above: Performed By: #### V ITD, CMP, TSH reflex FT4, CBCAD, FE Prof #### [facility] [address], [place] [id number] ALT [Catalytic activity/Vol] 28 U/L Normal 6-33 [facility] Program Coordinator Comment on above: Result Comment: 07/09 Female reference range changed. Performed By: #### V ITD, CMP, TSH reflex FT4, CBCAD, FE Prof #### [facility] [address], [place] [id number] Anion gap [Moles/Vol] 12 mmol/L Normal 12-20 [facility] Specialist Comment on above: Result Comment: Effe ctive 08/14/2019 reference range changed. Performed By: #### V ITD, CMP, TSH reflex FT4, CBCAD, FE Prof #### [facility] [address], [place] [id number] AST [Catalytic activity/Vol] 36 U/L High 9-34 [facility] Online Program Coordinator Comment on above: Performed By: #### V ITD, CMP, TSH reflex FT4, CBCAD, FE Prof #### [facility] [address], [place] [id number] Bilirubin [Mass/Vol] 0.48 mg/dL Normal 0.30-1.20 [facility] Comment on above: Performed By: #### V ITD, CMP, TSH reflex FT4, CBCAD, FE Prof #### [facility] [address], [place] [id number] BUN/CREA 19 Ratio Normal 6-22 [facility] Comment on above: Performed By: #### V ITD, CMP, TSH reflex FT4, CBCAD, FE Prof #### [facility] [address], [place] [id number] Calcium [Mass/Vol] 9.5 mg/dL Normal 8.6-10.2 [facility] Comment on above: Performed By: #### V ITD, CMP, TSH reflex FT4, CBCAD, FE Prof #### [facility] [address], [place] [id number] Chloride [Moles/Vol] 105 mmol/L Normal 98-107 [facility] Comment on above: Performed By: #### V ITD, CMP, TSH reflex FT4, CBCAD, FE Prof #### [facility] [address], [place] [id number] CO2 [Moles/Vol] 27 mmol/L Normal 20-31 [facility] Comment on above: Performed By: #### V ITD, CMP, TSH reflex FT4, CBCAD, FE Prof #### [facility] [address], [place] [id number] Creatinine [Mass/Vol] 1.0 mg/dL Normal 0.6-1.4 [facility] Comment on above: Performed By: #### V ITD, CMP, TSH reflex FT4, CBCAD, FE Prof #### [facility] [address], [place] [id number] eGFRAA 67 mL/min/1.73m2 Normal >60 [facility] Comment on above: Performed By: #### V ITD, CMP, TSH reflex FT4, CBCAD, FE Prof #### [facility] [address], [place] [id number] eGFRNAA 55 mL/min/1.73m2 Low >60 [facility] Online Program Coordinator Comment on above: Performed By: #### V ITD, CMP, TSH reflex FT4, CBCAD, FE Prof #### [facility] [address], [place] [id number] Globulin (S) [Mass/Vol] 2.3 g/dL Normal 1.9-3.7 [facility] Online Program Coordinator Comment on above: Performed By: #### V ITD, CMP, TSH reflex FT4, CBCAD, FE Prof #### [facility] [address], [place] [id number] Glucose [Mass/Vol] 85 mg/dL Normal 65-99 [facility] [place] [facility] Comment on above: Result Comment: For FASTING Glucose --- ADA reference ranges: Normal 65-99 mg/dl Prediabetes 100-125 Diabetes >/= 126 Performed By: #### V ITD, CMP, TSH reflex FT4, CBCAD, FE Prof #### [facility] [address], [place] [id number] Potassium [Moles/Vol] 3.8 mmol/L Normal 3.5-5.5 [facility] Comment on above: Performed By: #### V ITD, CMP, TSH reflex FT4, CBCAD, FE Prof #### [facility] [address], [place] [id number] Protein [Mass/Vol] 6.5 g/dL Normal 6.1-8.1 [facility] [place] [facility] Comment on above: Performed By: #### V ITD, CMP, TSH reflex FT4, CBCAD, FE Prof #### [facility] [address], [place] [id number] Sodium [Moles/Vol] 140 mmol/L Normal 135-146 [facility] [place] [facility] Coord[facility] Comment on above: Performed By: #### V ITD, CMP, TSH reflex FT4, CBCAD, FE Prof #### [facility] [address], [place] [id number] Urea nitrogen [Mass/Vol] 19 mg/dL Normal 7-25 [facility] Online Program Coordinator Comment on above: Performed By: #### V ITD, CMP, TSH reflex FT4, CBCAD, FE Prof #### [facility] [address], [place] [id number] Iron Profileon 01-13-2022 %FESAT 45 % Normal 11-50 [facility] Specialist Comment on above: Performed By: #### V ITD, CMP, TSH reflex FT4, CBCAD, FE Prof #### [facility] [address], [place] [id number] FE 129 ug/dL Normal 40-190 [facility] Specialist Comment on above: Result Comment: Refe rence range change 06/25/2017. Prior reference range F 37-145 ug/dL, M 59-158 ug/dL. Performed By: #### V ITD, CMP, TSH reflex FT4, CBCAD, FE Prof #### [facility] [address], [place] [id number] TIBC 284 ug/dL Normal 250-450 [facility] Specialist Comment on above: Performed By: #### V ITD, CMP, TSH reflex FT4, CBCAD, FE Prof #### [facility] [address], [place] [id number] UIBC 155 ug/dL Normal 112-347 [facility] Specialist Comment on above: Performed By: #### V ITD, CMP, TSH reflex FT4, CBCAD, FE Prof #### [facility] [address], [place] [id number] TSH w/ Reflex to Free T4on 0 01-13-2022 TSH 3.100 uIU/mL Normal 0.400-4.500 [facility] Online Program Coordinator Comment on above: Performed By: #### V ITD, CMP, TSH reflex FT4, CBCAD, FE Prof #### [facility] [address], [place] [id number] US Venous, Bilateral, [place] 01-13-2022 US Venous, Bilateral, Lower Ext HISTORY: [...] by Bonilla Mckeon on 01/13/2022 1441 Normal [facility] Specialist Vitamin B12/Folateon 022 Cobalamin (Vitamin B12) [Mass/Vol] 258 pg/mL Normal 211-946 [facility] Online Program Coordinator Comment on above: Performed By: #### B 12/Fol #### [facility] [address], [place] [id number] FOL 11.6 ng/mL Normal >4.7 [facility] Specialist Comment on above: Result Comment: Refe rence range change 06/25/2017. Prior reference range F 4.8-37.3 ng/mL, M 4.5-32.2 ng/mL. Performed By: #### B 12/Fol #### [facility] [address], [place] [id number] Vitamin D 25-OHon 01-13-2022 VIT D 25 OH 30 ng/ml Normal >29 [facility] Online Program Coordinator Comment on above: Result Comment: Ching min D Status Deficiency <20 ng/mL Insufficiency 20-29 ng/mL Optimal 30-100 ng/mL Possible Toxicity >=150 ng/mL Performed By: #### V ITD, CMP, TSH reflex FT4, CBCAD, FE Prof #### [facility] [address], [place] [id number] Vital Signs Date Time Vital Sign Value Performing Clinician Facility 10-06-2024 14:15-0500 Body height 160 cm Cynthia Leong MD Work Phone: [facility] 10-06-2024 14:15-0500 Body mass index (BMI) [Ratio] 25.9 kg/m2 Cynthia Leong MD Work Phone: [facility] 10-06-2024 14:15-0500 Body weight 66.32 kg Cynthia Leong MD Work Phone: [facility] 10-06-2024 14:15-0500 Diastolic blood pressure 90 mm[Hg] Cynthia Leong MD Work Phone: [facility] 10-06-2024 14:15-0500 Heart rate 88 /min Cynthia Leong MD Work Phone: [facility] 10-06-2024 14:15-0500 SaO2% (BldA) [Mass fraction] 97 % Cynthia Leong MD Work Phone: [facility] 10-06-2024 14:15-0500 Systolic blood pressure 138 mm[Hg] Cynthia Leong MD Work Phone: [facility] 09-26-2024 11:01-0500 Body mass index (BMI) [Ratio] 26.36 kg/m2 Roslyn nSowburg TEAM MEMBER Work Phone: [facility] 09-26-2024 11:01-0500 Body temperature 98.49 [degF] Roslyn Snowburg TEAM MEMBER Work Phone: [facility] 09-26-2024 11:01-0500 Body weight 67.5 kg Roslyn Snowburg TEAM MEMBER Work Phone: [facility] 09-26-2024 11:01-0500 Diastolic blood pressure 80 mm[Hg] Roslyn Hakeithenburg TEAM MEMBER Work Phone: [facility] 09-26-2024 11:01-0500 Heart rate 73 /min Roslyn Laurentenburg TEAM MEMBER Work Phone: [facility] 09-26-2024 11:01-0500 SaO2% (BldA) [Mass fraction] 95 % Roslyn Laurentenburg TEAM MEMBER Work Phone: [facility] 09-26-2024 11:01-0500 Systolic blood pressure 122 mm[Hg] Roslyn Hakeithenburg TEAM MEMBER Work Phone: [facility] 06-22-2024 16:17-0500 Body height 160 cm Cynthia Leong MD Work Phone: [facility] 06-22-2024 16:17-0500 Body mass index (BMI) [Ratio] 25.37 kg/m2 Cynthia Leong MD Work Phone: [facility] 06-22-2024 16:17-0500 Body weight 64.95 kg Cynthia Leong MD Work Phone: [facility] 06-22-2024 16:17-0500 Diastolic blood pressure 98 mm[Hg] Cynthia Leong MD Work Phone: [facility] 06-22-2024 16:17-0500 Heart rate 80 /min Cynthia Leong MD Work Phone: [facility] 06-22-2024 16:17-0500 SaO2% (BldA) [Mass fraction] 95 % Cynthia Leong MD Work Phone: [facility] 06-22-2024 16:17-0500 Systolic blood pressure 160 mm[Hg] Cynthia Leong MD Work Phone: [facility] 05-18-2024 10:14-0400 Heart rate 74 /min Divina Castellano TEAM MEMBER Work Phone: [facility] 05-18-2024 10:14-0400 SaO2% (BldA) [Mass fraction] 99 % Divina Castellano TEAM MEMBER Work Phone: [facility] 05-18-2024 09:50-0400 Body mass index (BMI) [Ratio] 24.44 kg/m2 Divina Castellano TEAM MEMBER Work Phone: [facility] 05-18-2024 09:50-0400 Body temperature 97.39 [degF] Divina Castellano TEAM MEMBER Work Phone: [facility] 05-18-2024 09:50-0400 Body weight 64.59 kg Divina Castellano TEAM MEMBER Work Phone: [facility] 05-18-2024 09:50-0400 Diastolic blood pressure 82 mm[Hg] Divina Castellano TEAM MEMBER Work Phone: [facility] 05-18-2024 09:50-0400 Systolic blood pressure 138 mm[Hg] Divina Castellano TEAM MEMBER Work Phone: [facility] 05-10-2023 10:45-0400 Body height 162.56 cm Ap Holland Other [email or web address] Other 05-10-2023 10:45-0400 Body mass index (BMI) [Ratio] 25.4 kg/m2 Ap Holland Other [facility] Other 05-10-2023 10:45-0400 Body weight 67.13 kg Ap Holland Other [facility] Other 05-10-2023 10:45-0400 Diastolic blood pressure 80 mm[Hg] Ap Skyler Other [facility] Other 05-10-2023 10:45-0400 Systolic blood pressure 122 mm[Hg] Ap Skyler Other [facility] Other 04-06-2023 11:15-0400 Body height 162.56 cm Ap Holland Other [facility] Other 04-06-2023 11:15-0400 Body mass index (BMI) [Ratio] 26.09 kg/m2 Ap Holland Other [facility] Other 04-06-2023 11:15-0400 Body weight 68.95 kg Ap Holland Other [facility] Other 04-06-2023 11:15-0400 Diastolic blood pressure 84 mm[Hg] Ap Skyler Other [facility] Other 04-06-2023 11:15-0400 Systolic blood pressure 124 mm[Hg] Ap Skyler Other [facility] Other 03-23-2023 11:30-0400 Body height 162.56 cm Ap Holland Other [facility] Other 03-23-2023 11:30-0400 Body mass index (BMI) [Ratio] 26.09 kg/m2 Ap Holland Other [facility] Other 03-23-2023 11:30-0400 Body weight 68.95 kg Ap Holland Other [facility] Other 03-23-2023 11:30-0400 Diastolic blood pressure 84 mm[Hg] Ap Holland Other [facility] Other 03-23-2023 11:30-0400 Systolic blood pressure 140 mm[Hg] Ap Holland Other [facility] Other 03-08-2023 09:00-0400 Body height 162.56 cm Ap Holland Other [facility] Other 03-08-2023 09:00-0400 Body mass index (BMI) [Ratio] 26.74 kg/m2 Ap Holland Other [facility] Other 03-08-2023 09:00-0400 Body weight 70.67 kg Ap Holland Other [facility] Other 03-08-2023 09:00-0400 Diastolic blood pressure 80 mm[Hg] Ap Holland Other [facility] Other 03-08-2023 09:00-0400 SaO2% (BldA) [Mass fraction] 99 % Ap Holland Other [facility] Other 03-08-2023 09:00-0400 Systolic blood pressure 130 mm[Hg] Ap Holland Other [facility] Other Encounters Encounter Date Encounter Type Care Provider Facility Start: 01-08-2025 End: 01-08-2025 Telephone encounter Cynthia Leong MD Work Phone: [facility] Start: 01-04-2025 End: 01-04-2025 Bamboo flowsheet Clarajomar Valenzuelabley MARINE PAINTER [facility] Start: 01-04-2025 End: 01-04-2025 Bamboo flowsheet Clarajomar Valenzuelabley MARINE PAINTER [facility] Start: 01-04-2025 End: 01-04-2025 ambulatory Clara Baly MARINE PAINTER [facility] Comment on above: Lumbar [...] 12-26-2024 End: 12-26-2024 Bamboo flowsheet Clara Kelbley MARINE PAINTER [facility] Start: 12-26-2024 End: 12-26-2024 Bamboo flowsheet Clara Nicolasbley MARINE PAINTER [facility] Start: 12-26-2024 End: 12-26-2024 ambulatory Clara Echeverria MARINE PAINTER [facility] Comment on above: Lumbar paraspinal mu scle spasm (Primary Dx); Weakness of both lower extremities; Frequent falls Start: 12-21-2024 End: 12-21-2024 Bamboo flowsheet Clara Baly MARINE PAINTER [facility] Start: 12-21-2024 End: 12-21-2024 Bamboo flowsheet Clara Baly MARINE PAINTER [facility] Start: 12-21-2024 End: 12-21-2024 ambulatory Clara Echeverria MARINE PAINTER [facility] Comment on above: Lumbar paraspinal mu scle spasm (Primary Dx); Weakness of both lower extremities; Frequent falls Start: 12-15-2024 End: 12-15-2024 Refill Nikki Coughlin MA [facility] Comment on above: Gastroesophageal ref lux disease without esophagitis; Mixed hyperlipidemia (CMS/HCC); Essential hypertension (CMS/HCC); Acquired hypothyroidism (CMS/HCC) Start: 12-14-2024 End: 12-14-2024 Bamboo flowsheet Clara Baly MARINE PAINTER [facility] Start: 12-14-2024 End: 12-14-2024 Bamboo flowsheet Clara Baly MARINE PAINTER [facility] Start: 12-14-2024 End: 12-14-2024 ambulatory Clara Echeverria MARINE PAINTER [facility] Comment on above: Lumbar paraspinal mu scle spasm (Primary Dx); Weakness of both lower extremities; Frequent falls Start: 12-11-2024 End: 12-11-2024 Bamboo flowsheet Clara Baly MARINE PAINTER [facility] Start: 12-11-2024 End: 12-11-2024 Bamboo flowsheet Clara Baly MARINE PAINTER [facility] Start: 12-11-2024 End: 12-12-2024 ambulatory Clara Baly MARINE PAINTER [facility] Comment on above: Lumbar [...] 09-26-2024 End: 09-26-2024 Bamboo flowsheet Roslyn Briscoe TEAM MEMBER Work Phone: [facility] Start: 09-26-2024 End: 09-26-2024 Bamboo flowsheet Roslyn Briscoe TEAM MEMBER Work Phone: [facility] Start: 09-26-2024 End: 09-26-2024 Office outpatient visit 15 minutes Roslyn Briscoe TEAM MEMBER Work Phone: [facility] Comment on above: Viral URI with cough (Primary Dx); Acute cough; Nasal congestion Start: 09-26-2024 End: 09-26-2024 ambulatory ROSLYN BRISCOE Not Available Start: 09-04-2024 End: 09-04-2024 Refill Libby Ward TEAM MEMBER Work Phone: [facility] Comment on [...] 07-25-2024 End: 07-25-2024 Bamboo flowsheet Mariano Ghosh MARINE PAINTER [facility] Start: 07-25-2024 End: 07-25-2024 Bamboo flowsheet Mariano Ghosh MARINE PAINTER [facility] Start: 07-25-2024 End: 07-25-2024 ambulatory Mariano Ghosh MARINE PAINTER [facility] Comment on above: Spinal stenosis, uns pecified spinal region (Primary Dx); Lumbar and sacral arthritis Start: 07-19-2024 End: 07-19-2024 ambulatory Mariano Ghosh MARINE PAINTER [facility] Comment on above: Spinal stenosis, uns pecified spinal region (Primary Dx); Lumbar and sacral arthritis Start: 07-18-2024 End: 07-19-2024 ambulatory Mariano Ghosh MARINE PAINTER [facility] Comment on above: Spinal stenosis, uns pecified spinal region (Primary Dx); Lumbar and sacral arthritis Start: 07-18-2024 End: 07-18-2024 Bamboo flowsheet Mariano Ghosh MARINE PAINTER [facility] Start: 07-18-2024 End: 07-18-2024 Bamboo flowsheet Mariano Ghosh MARINE PAINTER [facility] Start: 07-14-2024 End: 07-14-2024 Bamboo flowsheet Alana Lopez PT [facility] Start: 07-14-2024 End: 07-14-2024 Bamboo flowsheet Alana Lopez PT [facility] Start: 07-14-2024 End: 07-14-2024 ambulatory Alana Lopez PT [facility] Comment on above: Spinal stenosis, uns pecified spinal region (Primary Dx); Lumbar and sacral arthritis Start: 07-11-2024 End: 07-11-2024 ambulatory Mariano Ghosh MARINE PAINTER [facility] Comment on above: Spinal stenosis, uns pecified spinal region (Primary Dx); Lumbar and sacral arthritis Start: 07-04-2024 End: 07-04-2024 ambulatory Mariano Ghosh MARINE PAINTER [facility] Comment on above: Spinal stenosis, uns pecified spinal region (Primary Dx); Lumbar and sacral arthritis Start: 06-30-2024 End: 06-30-2024 ambulatory Mariano Ghosh MARINE PAINTER [facility] Comment on above: Spinal [...] 06-20-2024 End: 06-20-2024 Bamboo flowsheet Marianoflavia Ghosh MARINE PAINTER [facility] Start: 06-20-2024 End: 06-20-2024 Bamboo flowsheet Mariano Ghosh MARINE PAINTER [facility] Start: 06-20-2024 End: 06-20-2024 ambulatory Mariano Stefano MARINE PAINTER [facility] Comment on above: Spinal stenosis, uns pecified spinal region (Primary Dx); Lumbar and sacral arthritis Start: 06-16-2024 End: 06-16-2024 Bamboo flowsheet Mariano Ghosh MARINE PAINTER [facility] Start: 06-16-2024 End: 06-16-2024 Bamboo flowsheet Mariano Stefano MARINE PAINTER [facility] Start: 06-16-2024 End: 06-16-2024 ambulatory Mariano Stefano MARINE PAINTER [facility] Comment on above: Spinal stenosis, uns pecified spinal region (Primary Dx); Lumbar and sacral arthritis Start: 06-14-2024 End: 06-14-2024 Bamboo flowsheet Mariano Ghosh MARINE PAINTER [facility] Start: 06-14-2024 End: 06-14-2024 Bamboo flowsheet Mariano Ghosh MARINE PAINTER [facility] Start: 06-14-2024 End: 06-14-2024 ambulatory Mariano Ghosh MARINE PAINTER [facility] Comment on above: Spinal stenosis, uns pecified spinal region (Primary Dx); Lumbar and sacral arthritis Start: 06-13-2024 End: 06-13-2024 Refill Cynthia Leong MD Work Phone: [facility] Comment on above: Essential hypertensi on (CMS/HCC) Start: 06-07-2024 End: 06-07-2024 ambulatory Mariano Ghosh MARINE PAINTER [facility] Comment on above: Spinal [...] 05-22-2024 End: 05-22-2024 Orders Only Libby Ward TEAM MEMBER Work Phone: [facility] Comment on above: Acute cystitis witho ut hematuria (Primary Dx) Start: 05-18-2024 End: 05-18-2024 Bamboo flowsheet Divina Castellano TEAM MEMBER Work Phone: [facility] Start: 05-18-2024 End: 05-18-2024 Bamboo flowsheet Divina Castellano TEAM MEMBER Work Phone: [facility] Start: 05-18-2024 [...] Office outpatient visit 25 minutes Divina Castellano TEAM MEMBER Work Phone: [facility] Comment on above: Vertigo (Primary Dx) ; Spinal stenosis, unspecified spinal region; Lumbar and sacral arthritis; Dysuria; Essential hypertension ([facility]) Start: 05-18-2024 End: 05-18-2024 ambulatory DIVINA CASTELLANO Not Available Start: 05-17-2024 End: 05-17-2024 Refill Cynthia Leong MD Work Phone: [facility] Comment on above: Gastroesophageal ref lux disease without esophagitis Start: 05-15-2024 End: 05-15-2024 ambulatory Kulwant García MD Facility:[facility] Start: 04-17-2024 End: 04-17-2024 ambulatory Kulwant García MD Facility:[facility] Start: 04-03-2024 End: 04-03-2024 ambulatory Kulwant García MD Facility:[facility] Start: 03-21-2024 End: 03-21-2024 ambulatory ALANA LOPEZ Not Available Start: 03-14-2024 End: 03-14-[address] Not Available Start: 03-14-2024 End: 03-14-2024 ambulatory ALANABrooklynn LOEPZ Not Available Start: 03-13-2024 End: 03-13-2024 ambulatory DIVINAGera PARSON Not Available Start: 03-10-2024 End: 03-10-2024 ambulatory CYNTHIA LEONG Not Available Start: 02-17-2024 End: 02-17-2024 ambulatory ROSLYN BRISCOE Not Available Start: 01-18-2024 End: 01-18-2024 ambulatory ROSLYN BRISCOE Not Available Start: 10-08-2023 End: 10-08-2023 ambulatory Charles Hendricks Facility:[facility] Start: 09-27-2023 End: 09-27-2023 ambulatory Kulwant García MD Facility: [facility] Start: 09-13-2023 End: 09-13-2023 ambulatory Kulwant García MD Facility: [facility] Start: 05-10-2023 Office outpatient vi sit 25 minutes Ap Holland [facility] Start: 05-10-2023 End: 05-10-2023 ambulatory Ap Holland Facility:[facility] Start: 05-10-2023 End: 05-10-2023 ambulatory TEAM MEMBER-C Roslyn Briscoe Work Phone: [facility] Work Phone: Start: 05-10-2023 End: 05-10-2023 Patient encounter procedure TEAM MEMBER-C Roslyn Briscoe Work Phone: [facility] Work Phone: Start: 04-29-2023 (PROC) PROCEDURE Ap Hart [facility] Start: 04-29-2023 End: 04-29-2023 ambulatory Ap Holland Other [email or web address] Other Start: 04-06-2023 End: 04-06-2023 ambulatory Ap Holland Other [facility] Other Start: 04-06-2023 Office outpatient vi sit 25 minutes Ap Skyler [facility] Start: 03-23-2023 End: 03-23-2023 ambulatory Ap Holland Other [email or web address] Other Start: 03-23-2023 Office outpatient vi sit 15 minutes Ap Skyler [facility] Start: 03-16-2023 (PROC) PROCEDURE Apkalin Hart [facility] Start: 03-16-2023 End: 03-16-2023 ambulatory Ap Holland Other [facility] Other Start: 03-09-2023 End: 03-09-2023 ambulatory Ap Holland Other [facility] Other Start: 03-09-2023 Telephone encounter Ap Holland [facility] Start: 03-08-2023 End: 03-08-2023 ambulatory Ap Holland Other [email or web address] Other Start: 03-08-2023 Office consultation new/estab patient 60 min Ap Skyler [facility] Procedures Date Procedure Procedure Detail Performing Clinician Start: 09-26-2024 STATUS COVID-19/FLU Pat jaspal Briscoe TEAM MEMBER Work Phone: Start: 06-22-2024 Complete blood count with white cell differential, automated Cynthia Leong MD Work Phone: Start: 06-22-2024 Comprehensive metabo lic panel Cynthia Leong MD Work Phone: Start: 06-22-2024 Lipid panel Cynthia castaneda MD Work Phone: Start: 06-22-2024 TSH W/REFLEX TO FT4 Swathi Leong MD Work Phone: Start: 05-18-2024 Urnls dip stick/tabl et rgnt non-auto w/o micrscp Divina Castellano TEAM MEMBER Work Phone: Start: 05-10-2023 Plain X-ray of right hip TEAM MEMBER-C Roslyn Briscoe Work Phone: Plan of Treatment Date Care Activity Detail Author Start: 2025 Medicare Annual Well ness (AWV) Medicare Annual Wellness (AWV) [facility] Start: 04-09-2025 Influenza vaccination Influenz a Vaccine (Season Ended) [facility] Start: 02-01-2025 End: 02-01-2025 ambulatory 02/01/2025 11:30 AM EDT Treatment [facility] [address] [facility] [address] [place] [address] Clara Echeverria, MARINE PAINTER [facility] Start: 01-29-2025 End: 01-29-2025 ambulatory 01/29/2025 11:00 AM EDT Treatment [facility] [address] [place] [address] [place] [address] Shiva Agarwal, PT [address] [place] [address] [facility] Start: 01-25-2025 End: 01-25-2025 ambulatory 01/25/2025 11:30 AM EDT Treatment [facility] [address] [place] [address] [place] [address] Hill Saunders, MARINE PAINTER [facility] Start: 01-22-2025 End: 01-22-2025 ambulatory 01/22/2025 10:30 AM EDT Treatment [facility] [address] [place] [address] [place] [address] Clara Echeverria, MARINE PAINTER [facility] Start: 01-18-2025 End: 01-18-2025 ambulatory 01/18/2025 11:30 AM EDT Treatment [facility] [address] [place] [address] [place] [address] Hill Saunders, MARINE PAINTER [facility] Start: 01-15-2025 End: 01-15-2025 ambulatory 01/15/2025 10:30 AM EDT Treatment [facility] [address] [place] [place] [address] Clara Echeverria, MARINE PAINTER [facility] Start: 01-11-2025 End: 01-11-2025 ambulatory 01/11/2025 10:30 AM EDT Treatment [facility] [address] [place] [address] [place] [address] Shiva Agarwal, PT [address] [place] [address] [facility] Start: 01-08-2025 End: 01-08-2025 ambulatory 01/08/2025 1:30 PM EDT Treatment [facility] [address] [place] [place] [address] Clara Echeverria, MARINE PAINTER [facility] Start: 01-04-2025 End: 01-04-2025 ambulatory [facility] Comment on above: Arrived Start: 2024 End: 2024 Patient encounter procedure 2024 10:00 AM EDT Office Visit [facility] [address] [place] [address] Cynthia Leong MD [address] [place] [address] [facility] Start: 12-28-2024 End: 12-28-2024 ambulatory 12/28/2024 11:30 AM EDT Treatment [facility] [address] [place] [place] [address] Clara Echeverria, MARINE PAINTER [facility] Start: 12-26-2024 End: 12-26-2024 ambulatory 12/26/2024 10:00 AM EDT Treatment [facility] [address] [place] [place] [address] Judith Echeverriaissa, MARINE PAINTER Lumbar paraspinal muscle spasm (Primary Dx); Weakness [...] Treatment [facility] [address] [facility] [address] [place] [address] Shiva Agarwal, PT [address] [facility] [address] [place] [address] [facility] Start: 12-14-2024 End: 12-14-2024 ambulatory [facility] Comment on above: Arrived Start: 12-11-2024 End: 12-11-2024 ambulatory [facility] Comment on above: Arrived Start: 12-07-2024 End: 12-07-2024 ambulatory 12/07/2024 2:00 PM EDT Evaluation [facility] [address] [facility] [address] [place] [address] Shiva Agarwal, PT [address] [facility] [address] [place] [address] Arrived [facility] Comment on above: Arrived Start: 10-06-2024 End: 10-06-2024 Patient encounter procedure 10/06/2024 2:40 PM EST Office Visit [facility] [address] [facility] [phone] Cynthia Leong MD [address] [facility] [place] [place] [address] Arrived [facility] Comment [...] EST Office Visit [facility] [address] [place] [address] Roslyn Briscoe NP [address] [facility] [place], [place] [id number] Arrived [facility] Comment on above: Arrived Start: 08-03-2024 Medicare Annual Well ness (AWV) Medicare Annual Wellness (AWV) [facility] Start: 08-03-2024 End: 08-03-2024 ambulatory 08/03/2024 12:30 PM EST Treatment [facility] [address] [place] [place] [id number] Alana Lopez, PT [facility] Start: 07-31-2024 End: 07-31-2024 ambulatory 07/31/2024 12:00 PM EST Treatment [facility] [address] [place] [place] [address] Mariano Ghosh, MARINE PAINTER [facility] Start: 07-28-2024 End: 07-28-2024 ambulatory 07/28/2024 1:00 PM EST Treatment [facility] [address] [place] [address] [place] [address] Alana Lopez, PT Arrived [facility] Comment on above: Arrived Start: 07-27-2024 End: 07-27-2024 ambulatory [facility] Start: 07-25-2024 End: 07-25-2024 ambulatory [facility] Comment on above: Arrived Start: 07-19-2024 End: 07-19-2024 ambulatory 07/19/2024 1:00 PM EST Treatment [facility] [address] [facility] [address] [place] [address] Mariano Ghosh, MARINE PAINTER [facility] Start: 07-18-2024 End: 07-18-2024 ambulatory 07/18/2024 4:00 PM EST Treatment [facility] [address] [place] [place] [address] Mariano Ghosh, MARINE PAINTER Arrived [facility] Comment on above: Arrived Start: 07-17-2024 End: 07-17-2024 ambulatory 07/17/2024 12:30 PM EST Treatment [facility] [address] [place] [address] [place] [address] Mariano Ghosh, MARINE PAINTER [facility] Start: 07-14-2024 End: 07-14-2024 ambulatory [facility] Comment on above: Arrived Start: 07-11-2024 End: 07-11-2024 ambulatory 07/11/2024 12:30 PM EST Treatment [facility] [address] [place] [address] [place] [address] Mariano Ghosh, MARINE PAINTER [facility] Start: 07-04-2024 End: 07-04-2024 ambulatory 07/04/2024 12:30 PM EST Treatment [facility] [address] [facility] [address] [place] [address] Mariano Ghosh, MARINE PAINTER [facility] Start: 06-30-2024 End: 06-30-2024 ambulatory 06/30/2024 12:00 PM EST Treatment [facility] [address] [facility] [address] [place] [address] Mariano Ghosh, MARINE PAINTER [facility] Start: 06-23-2024 End: 06-23-2024 ambulatory 06/23/2024 10:30 AM EST Treatment [facility] [address] [facility] [address] [place] [address] Alana Lopez, PT [facility] Start: 06-22-2024 End: 06-22-2024 Patient encounter procedure 06/22/2024 2:30 PM EST Office Visit [facility] [address] [facility] [place] [address] Cynthia Leong MD [address] [facility] [place] [address] [facility] Start: 06-20-2024 End: 06-20-2024 ambulatory 06/20/2024 2:00 PM EST Treatment [facility] [address] [facility] [address] [place] [address] Mariano Ghosh, MARINE PAINTER [facility] Start: 06-16-2024 End: 06-16-2024 ambulatory [facility] Comment on above: Arrived Start: 06-14-2024 End: 06-14-2024 ambulatory 06/14/2024 12:30 PM EST Treatment [facility] [address] [facility] [address] [place] [address] Mariano Ghosh, MARINE PAINTER [facility] Start: 06-07-2024 End: 06-07-2024 ambulatory 06/07/2024 2:30 PM EDT Treatment [facility] [address] [facility] [address] [place] [address] Mariano Ghosh, MARINE PAINTER [facility] Start: 06-05-2024 End: 06-05-2024 [...] 04-09-2024 Influenza vaccination Influenza Vacc ine (#1) [facility] Bacteria identified in Urine by Culture Urine culture Microbiology Routine Dysuria Ordered: 05/18/2024 [facility] Work Phone: Comment on above: Ordered: 05/18/2024 Immunizations Immunization Date Immunization Notes Care Provider [facility] 07-08-2023 Pneumococcal Conjuga te PCV 20 Cynthia Leong MD Work Phone: [facility] 05-11-2023 influenza, high dose seasonal, preservative-free Cynthia Leong MD Work Phone: [facility] 05-11-2023 influenza virus vacc ine, unspecified formulation Cynthia Leong MD Work Phone: [facility] 06-23-2022 Influenza, High-dose Seasonal, Quadrivalent, Preservative Free yCnthia Leong MD Work Phone: [facility] 05-09-2021 Influenza, High-dose Seasonal, Quadrivalent, Preservative Free Cynthia Leong MD Work Phone: [facility] 06-21-2020 influenza, high dose seasonal, preservative-free Cynthia Leong MD Work Phone: [facility] Payers Date Payer Category Payer Private Health Insurance 2023 Self-pay 2021 Medicaid [employer] MEDICARE A DVANTAGE [id number] 2021 Medicare A[employer]NA MEDICARE A DVANTAGE AETNA MEDICARE REPLACEMENT [id number] 2021-Present [address] [place] [address] [id number] 2021 Medicare [id number] 2.16.840.1.541395.19 1943 Unknown [id number] 2.16.840.1.914093.3.579.2. 1943 Unknown [id number] 2.16.840.1.176799.3.579.2. 1943 Unknown [id number] 2.16.840.1.492092.3.579.2. 1943 Unknown [id number] 2.16.840.1.742918.3.579.2. 1943 Unknown [id number] 2.16.840.1.684983.3.579.2. 1943 Unknown [id number] 2.16.840.1.022466.3.579.2. 1258 1943 Unknown [id number] 2.16.840.1.023008.3.579.2. 1258 1943 Unknown [id number] 2.16.840.1.305836.3.579.2. 1258 1943 Unknown [id number] 2.16.840.1.506786.3.579.2. 125 1943 Unknown [id number] 2.16.840.1.365127.3.579.2. 1258 1943 Unknown [id number] 2.16.840.1.300193.3.579.2. 1258 1943 Unknown [id number] 2.16.840.1.737425.3.579.2. 1258 1943 Unknown [id number] 2.16.840.1.823880.3.579.2. 1258 1943 Unknown [id number] 2.16.840.1.719773.3.579.2. 1258 1943 Unknown [id number] 2.16.840.1.332629.3.579.2. 1258 1943 Unknown [id number] 2.16840.1.346028.3.579.2. 1258 1943 Unknown [id number] 2.16.840.1.109182.3.579.2. 1258 1943 Unknown [id number] 2.16.840.1.343947.3.579.2. 1258 1943 Unknown [id number] 2.16.840.1.577036.3.579.2. 1258 1943 Unknown [id number] 2.16.840.1.804367.3.579.2. 1258 1943 Unknown [id number] 2.16.840.1.857769.3.579.2. 1258 1943 Unknown [id number] 2.16.840.1.737329.3.579.2. 1258 1943 Unknown [id number] 2.16.840.1.025122.3.579.2. 1258 1943 Unknown [id number] 2.16.840.1.309424.3.579.2. 1258 1943 Unknown [id number] 2.16.840.1.116728.3.579.2. 1258 1943 Unknown [id number] 2.16.840.1.080035.3.579.2. 1258 1943 Unknown [id number] 2.16.840.1.619869.3.579.2. 1258 1943 Unknown [id number] 2.16.840.1.396220.3.579.2. 1258 1943 Unknown [id number] 2.16.840.1.099943.3.579.2. 1258 1943 Unknown [id number] 2.16.840.1.306697.3.579.2. 1258 1943 Unknown [id number] 2.16.840.1.416806.3.579.2. 1258 1943 Unknown [id number] 2.16.840.1.659126.3.579.2. 1258 1943 Unknown [id number] 2.16.840.1.449525.3.579.2. 1258 1943 Unknown [id number] 2.16.840.1.993614.3.579.2. 1258 1943 Unknown [id number] 2.16840.1.808782.3.579.2. 1258 1943 Unknown [id number] 2.16.840.1.099747.3.579.2. 1258 1943 Unknown [id number] 2.16.840.1.921811.3.579.2. 1258 1943 Unknown [id number] 2.16.840.1.800623.3.579.2. 1258 1943 Unknown [id number] 2.16.840.1.664634.3.579.2. 1258 1943 Unknown [id number] 2.16.840.1.830163.3.579.2. 1259 1943 Unknown [id number] 2.16.840.1.313426.3.579.2. 9 1943 Unknown [id number] 2.16.840.1.320098.3.579.2. 9 1943 Unknown [id number] 2.16.840.1.524445.3.579.2. 1258 1943 Unknown [id number] 2.16.840.1.296224.3.579.2. 1259 Medicare [id number] 2.16.840.1.386807.19 Unknown [id number] 2.16.840.1.376453.3.579.2. 531 Unknown [id number] 2.16.840.1.613557.3.579.2. 531 Social History Date Type Detail Facility Start: 09-02-2023 End: 2024 Sex Assigned At Located Within [facility] [employer] Other Start: 1945 Sex Assigned At Female F [facility] Start: 02-05-2023 Tobacco smoking stat [facility] Never smoked tobacco [facility] Work Phone: [...] Gender identity Identifies as female gender (finding) [facility] Start: 09-26-2024 Alcohol Comment Caffeine intak e : 1-2 cups/day coffee [facility] Clinical Notes 03-08-2023 to 01-08-2025 Telephone Encounter - Cynthia Leong MD - 01/08/2025 1:47 PM EDTTelephone Encounter - Cynthia Leong MD - 01/08/2025 1:47 PM EDTTelephone Encounter - Kari Braswell - 01/08/2025 8:07 AM EDT Note Date & Type Note Facility 01-08-2025 Telephone encount er Note Was [facility] able to add on the immunofixation? [facility] 01-08-2025 Miscellaneous Notes Formattin g of this note might be different from the original. Was [facility] able to add on the immunofixation? documented in this encounter [facility] 01-08-2025 Telephone encount er Note Fyi-- Good morning, this is Nanette Car calling. I am the daughter of Yvonne Liz. Her birthday is . She fell on Wednesday and broke her wrist. I just wanted to let Dr Washington know if we could put that note in her record. She will be seeing Dr Hendricks, the orthopedic Today at [facility], where they will set it and cast it, just wanted to put that information in the file. And we will follow up with Dr. Washington after we see Dr. Hendricks in orthopedic day. If you need to reach me, I can be found at [phone] again Nanette Car, daughter of Yvonne Liz, [phone]. Thank you so much. Have a great day. Fernanda victor. [facility] 01-08-2025 Miscellaneous Notes Formattin g of [...] seeing Dr Hendricks, the orthopedic Today at [facility], where they will set it and cast it, just wanted to put that information in the file. And we will follow up with Dr. Washington after we see Dr. Hendricks in orthopedic day. If you need to reach me, I can be found at [phone] again Nanette Car, daughter of Yvonne Liz, [phone]. Thank you so much. Have a great day. Fernanda victor. documented in this encounter [facility] 01-02-2025 History of Presen t illness [...] to be instructed in home exercise program. Lunchroom Supervisor Goals: To be met in 10 weeks [...] sign below. Date: documented in this encounter [facility] 12-15-2024 Miscellaneous Notes Formattin g of this note might be different from the original. Refills sent. Pharmacy and dosage correct documented in this encounter [facility] 12-15-2024 Telephone encount er Note Refills sent. [facility] 12-15-2024 Telephone encount er Note Pharmacy and dosage correct [facility] 12-07-2024 History of Presen t illness [...] to be instructed in home exercise program. Alf Goals: To be met in 10 weeks [...] sign below. Date: documented in this encounter [facility] 10-06-2024 History of Presen t illness [...] infections. [facility]. 2. Falls. The patient reports multiple [...] are still low, further evaluation by a boiler out may be considered. She has previously refused [...] Other pancytopenia (CMS/HCC) documented in this encounter [facility] 09-27-2024 Telephone encount er Note Dominique called - she was in yesterday w Shilpi but is asking for an Antibiotic to be called in. She said she feels miserable . Dominique - if you could call and let her know either way, ty [phone] [facility] 09-27-2024 Miscellaneous Notes Formattin g of this note might be different from the original. Dominique called - she was in yesterday w Shilpi but is asking for an Antibiotic to be called in. She said she feels miserable . Dominique - if you could call and let her know either way, ty [phone] documented in this encounter [facility] 09-26-2024 History of Presen t illness [...] associated with rest 12/01/2018 Decreased platelet count ([facility]) 01/01/2023 Essential hypertension ([facility]) 10/15/2016 Gastro-esophageal reflux disease without esophagitis 11/24/2017 GERD (gastroesophageal reflux disease) Hypertension ([facility]) Hyperthyroidism ([facility]) Hypothyroid ([facility]) Hypothyroidism, unspecified ([facility]) 05/11/2016 Lumbar and sacral arthritis 01/01/2023 Mixed hyperlipidemia ([facility]) 10/15/2016 Nocturnal leg cramps 01/01/2023 Orthostatic hypotension [...] HIP SURGERY Right 10/07/2023 Fx fixed @ [facility] PARTIAL HYSTERECTOMY 1982 REVIEW OF SYMPTOMS: [...] maintain hydration, ensure adequate rest, and use hals-ktf-[id number] analgesics such as Tylenol or Motrin as needed. She may continue with DayQuil and is also recommended to consider Mucinex. A prescription for Mucinex will be sent to [facility]. If there is no improvement in her condition by Wednesday, she should inform us. No follow-ups on file. documented in this encounter [facility] 09-04-2024 Telephone encount er Note Refills sent. [facility] 09-04-2024 Miscellaneous Notes Formattin g of this note might be different from the original. Refills sent. documented in this encounter [facility] 09-04-2024 Telephone encount er Note Refills sent. [facility] 09-04-2024 Miscellaneous Notes Formattin g of this note might be different from the original. Refills sent. documented in this encounter [facility] 08-03-2024 History of Presen t illness [...] instructed in home exercise program. - met Alf Goals: To be met in 10 weeks [...] 07-31-2024 Telephone encount er Note Refills sent. [facility] 07-31-2024 Miscellaneous Notes Formattin g of this note might be different from the original. Refills sent. documented in this encounter [facility] 07-28-2024 History of Presen t illness [...] to be instructed in home exercise program. Lunchroom Supervisor Goals: To be met in 10 weeks [...] sign below. 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 Lunchroom Supervisor Goals: To be met in 10 weeks [...] sign below. Date: documented in this encounter [facility] 06-27-2024 History of Presen t illness [...] to be instructed in home exercise program. Alf Goals: To be met in 10 weeks [...] sign below. Date: documented in this encounter [facility] 06-23-2024 History of Presen t illness [...] to be instructed in home exercise program. Alf Goals: To be met in 10 weeks [...] sign below. Date: documented in this encounter [facility] 06-22-2024 History of Presen t illness [...] new medication will be sent to [facility] and should be taken once daily with [...] CBC and differential documented in this encounter [facility] 06-20-2024 History of Presen t illness [...] to be instructed in home exercise program. Alf Goals: To be met in 10 weeks [...] 1:09 PM EST documented in this encounter [facility] 06-13-2024 Telephone encount er Note Approving, but needs appt for additional refills. [facility] 06-13-2024 Miscellaneous Notes Formattin g of [...] pt. Thank you. documented in this encounter [facility] 06-13-2024 Telephone encount er Note 180/70 sometimes 160/70 definitely happening more frequently than family would like. Scheduling an appt for the next wk [facility] 06-13-2024 Telephone encount er Note Patient is calling for refill of [facility]oprolol [facility] [place]. When her b/p is high do you want her to take more of this medication? Please advise pt. Thank you. [facility] 06-07-2024 Telephone encount er Note Nanette Fox's daughter Kellie is having a lot of pain and needing to get in terry, *I can call if needed , ty [facility] [phone] [facility] 06-07-2024 Miscellaneous Notes Formattin g of [...] *I can call if needed , ty [facility] [phone] documented in this encounter [facility] 05-29-2024 History of Presen t illness [...] or 3 Meclizine yesterday, none today. Precautions: [place], falls Subjective: Pt states she continues with [...] instructed in home exercise program. - MET Alf Goals: To be met in 10 weeks [...] PT this date. documented in this encounter [facility] 05-18-2024 Telephone encount er Note Patient daughter- Nanette is calling today re: referral. Nanette called PT and they can address one issue at a time. Is the vertigo more important that the spinal stenosis and arthritis at this time? Please advise Nanette which one you would like addressed first so she can call and get this scheduled. Nanette [phone]. Thank you. [facility] 05-18-2024 Miscellaneous Notes Formattin g of [...] can call and get this scheduled. Nanette [phone]. Thank you. documented in this encounter [facility] 05-18-2024 History of Presen t illness [...] associated with rest 12/01/2018 Decreased platelet count ([facility]) 01/01/2023 Essential hypertension (CMS/HCC) 10/15/2016 Gastro-esophageal reflux [...] Next scheduled follow-up. documented in this encounter [facility] 05-10-2023 Evaluation note Encounter Date Diagnosis [...] up in 1 week for further evaluation. [email or web address] Other 08-29-2023 Evaluation note* Encounter Date Diagnosis [...] (ICD-10 - G89.29) Proceed with treatment plan. [email or web address] Other 08-15-2023 Evaluation note* Encounter Date Diagnosis [...] (ICD-10 - G89.29) Follow up as needed [email or web address] Other 07-31-2023 Evaluation note* Encounter Date Diagnosis [...] negative findings were considered in medical decision-making. [place] [employer] Other Evaluation noteNo [facility] [address] [employer] Other Evaluation noteNo assessment information available [facility] Work Phone: Evaluation note* Diagnosis Gastroesophageal [...] Date Medical History hypercholestolemia Medical History stenosis [email or web address] Other Reason for visit Narrative* Rehabilitation - Outpatient (Routine) - Authorized Specialty Diagnoses / Procedures Referred By Contac t Referred To Contact Physical Therapy Diagnoses Vertigo Spinal stenosis, unspecified spinal region Lumbar and sacral arthritis Procedures OR OFFICE/OUTPATIENT [facility] 60 MINUTES Divina Castellano, TEAM MEMBER [address] [place] [address] Phone: tel: fax: Alana Lopez PT Referral ID Status Reason Start Date Expiration Date Visits Requested Visits Authorized [id number] Authorized Specialty Services Required 11/14/2024 99 99 [facility] N[facility]* Rehabilitation - Outpatient (Routine) - Authorized Specialty Diagnoses / Procedures Referred By Contac t Referred To Contact Physical Therapy Diagnoses Spinal stenosis, unspecified spinal region Lumbar and sacral arthritis Procedures OR OFFICE/OUTPATIENT NEW HIGH MDM 60 MINUTES Divina Castellano, TEAM MEMBER [address] [place] [address] Phone: tel: fax: Alana Lopez, PT Referral ID Status Reason Start Date Expiration Date Visits Requested Visits Authorized [id number] Authorized Specialty Services Required 05/14/2025 1 90 [facility] for [facility] Narrative* Rehabilitation - Outpatient (Routine) - Authorized Specialty Diagnoses / Procedures Referred By Contac t Referred To Contact Physical Therapy Diagnoses Spinal stenosis, unspecified spinal region Lumbar and sacral arthritis Procedures OR OFFICE/OUTPATIENT NEW HIGH MDM 60 MINUTES Divina Castellano, TEAM MEMBER [address] [place] [address] Phone: tel: fax: Alana Lopez, PT Referral ID Status Reason Start Date Expiration Date Visits Requested Visits Authorized [id number] Authorized Specialty Services Required 08/08/2024 1 90 [facility] for [facility] Narrative* Rehabilitation - Outpatient (Routine) - Closed Specialty Diagnoses / Procedures Referred By Contac t Referred To Contact Physical Therapy Diagnoses Spinal stenosis, unspecified spinal region Lumbar and sacral arthritis Procedures OR OFFICE/OUTPATIENT NEW HIGH MDM 60 MINUTES Divina Castellano, TEAM MEMBER [address] [place] [address] Phone: tel: fax: Alana Lopez, PT Referral ID Status Reason Start Date Expiration Date V isits Requested Visits Authorized [id number] Closed Specialty Services Required 06/05/2024 08/08/2024 1 90 [facility] for [facility] Narrative* Rehabilitation - Outpatient (Routine) - Authorized Specialty Diagnoses / Procedures Referred By Contac t Referred To Contact Physical Therapy Diagnoses Spinal stenosis, lumbar region with neurogenic claudication Procedures OR PHYSICAL THERAPY EVALUATION LOW COMPLEX 20 MINS OR OFFICE/OUTPATIENT NEW HIGH MDM 60 MINUTES Kulwant García MD [address] [place] [address] Phone: tel: fax: Shiva Agarwal, PT 112 [facility] [address] [place] [address] Phone: tel: fax: Referral ID Status Reason Start Date Expiration Date V isits Requested Visits Authorized [id number] Authorized 12/01/2024 05/30/2025 99 99 [facility]Reason for visit Narrative* Rehabilitation - Outpatient (Routine) - Authorized Specialty Diagnoses / Procedures Referred By Suni conde Referred To Contact Physical Therapy Diagnoses Spinal stenosis, lumbar region with neurogenic claudication Procedures OR PHYSICAL THERAPY EVALUATION LOW COMPLEX 20 MINS OR OFFICE/OUTPATIENT NEW HIGH MDM 60 MINUTES Kulwant García MD [address] [place] [address] Phone: tel: fax: Shiva Agarwal, PT [address] [address] Phone: tel: fax: Referral ID Status Reason Start Date Expiration Date V isits Requested Visits Authorized [id number] Authorized 12/01/2024 08/08/2025 99 99 [facility] [...] spinal region Lumbar and sacral arthritis Procedures OR OFFICE/OUTPATIENT NEW HIGH MDM 60 MINUTES Divina Castellano, TEAM MEMBER [address] [place] [address] Alana Lopez, PT Referral ID Status Reason Start Date Expiration Date Visits Requested Visits Authorized [id number] Authorized Specialty Services Required 11/14/2024 99 99 Additional Source Comments INFORMATION SOURCE (unrecogn ized section and content) DATE CREATED AUTHOR 12/11/2022 [facility] Me dical Specialist DATE CREATED AUTHOR AUTHOR'S ORGANIZ ATION 10/19/2023 [facility] DATE CREATED AUTHOR AUTHOR'S ORGANIZ ATION 05/24/2024 [facility] DATE CREATED AUTHOR AUTHOR'S ORGANIZ ATION 01/06/2025 [facility] dical Specialists EPIC REASON FOR VISIT [...] e Ap Holland MD Attending Provider Active Paper Sales Representative Relationship Specialty Start Date End Date Cynthia Leong MD [address] [place] [address] PCP - [employer] 08/09/20 Cynthia Leong MD [address] [facility] [place] [address] PCP - General Family Medicine 01/18/24 Libby Ward NP [address] [place] [address] Nurse Practitioner Family Medicine 02/05/23 Paper Sales Representative Relationship Specialty Start Date End Date Cynthia Leong MD [address] [place] [address] PCP - [employer] 08/09/20 Cynthia Leong MD [address] [place] [address] PCP - General Family Medicine 01/18/24 Libby Ward NP [address] [place] [address] Nurse Practitioner Family Medicine 02/05/23 Paper Sales Representative Relationship Specialty Start Date End Date Cynthia Leong MD [address] [place] [address] PCP - [employer] 08/09/20 Cynthia Leong MD [address] [place] [address] PCP - General Family Medicine 01/18/24 Libby Ward NP [address] [place] [address] Nurse Practitioner Family Medicine 02/05/23 Paper Sales Representative Relationship Specialty Start Date End Date Cynthia Leong MD [address] [place] [address] PCP - [employer] 08/09/20 Cynthia Leong MD [address] [place] [address] PCP - General Family Medicine 01/18/24 Libby Ward NP [address] [place] [address] Nurse Practitioner Family Medicine 02/05/23 Paper Sales Representative Relationship Specialty Start Date End Date Cynthia Leong MD [address] [place] [address] PCP - [employer] 08/09/20 Cynthia Leong MD [address] [place] [address] PCP - General Family Medicine 01/18/24 Libby Ward NP [address] [place] [address] Nurse Practitioner Family Medicine 02/05/23 Paper Sales Representative Relationship Specialty Start Date End Date Cynthia Leong MD [address] [place] [address] PCP - [employer] 08/09/20 Cynthia Leong MD [address] [place] [address] PCP - General Family Medicine 01/18/24 Libby Ward NP [address] [place] [address] Nurse Practitioner Family Medicine 02/05/23 Paper Sales Representative Relationship Specialty Start Date End Date Cynthia Leong MD [address] [place] [address] PCP - [employer] 08/09/20 Cynthia Leong MD [address] [place] [address] PCP - General Family Medicine 01/18/24 Libby Ward NP [address] [place] [address] Nurse Practitioner Family Medicine 02/05/23 Paper Sales Representative Relationship Specialty Start Date End Date Cynthia Leong MD [address] [place] [address] PCP - [employer] 08/09/20 Cynthia Leong MD [address] [place] [address] PCP - General Family Medicine 01/18/24 Libby Ward NP [address] [place] [address] Nurse Practitioner Family Medicine 02/05/23 Paper Sales Representative Relationship Specialty Start Date End Date Cynthia Leong MD [address] [place] [address] PCP - [employer] 08/09/20 Cynthia Leong MD [address] [place] [address] PCP - General Family Medicine 01/18/24 Libby Ward NP [address] [place] [address] Nurse Practitioner Family Medicine 02/05/23 Paper Sales Representative Relationship Specialty Start Date End Date Cynthia Leong MD [address] [place] [address] PCP - [employer] 08/09/20 Cynthia Leong MD [address] [place] [address] PCP - General Family Medicine 01/18/24 Libby Ward NP [address] [place] [address] Nurse Practitioner Family Medicine 02/05/23 Paper Sales Representative Relationship Specialty Start Date End Date Cynthia Leong MD [address] [place] [address] PCP - [employer] 08/09/20 Cynthia Leong MD [address] [place] [address] PCP - General Family Medicine 01/18/24 Libby Ward NP [address] [place] [address] Nurse Practitioner Family Medicine 02/05/23 Paper Sales Representative Relationship Specialty Start Date End Date Cynthia Leong MD [address] [place] [address] PCP - [employer] 08/09/20 Cynthia Leong MD [address] [place] [address] PCP - General Family Medicine 01/18/24 Libby Ward NP [address] [place] [address] Nurse Practitioner Family Medicine 02/05/23 Paper Sales Representative Relationship Specialty Start Date End Date Cynthia Leong MD [address] [place] [address] PCP - [employer] 08/09/20 Cynthia Leong MD [address] [place] [address] PCP - General Family Medicine 01/18/24 Libby Ward NP [address] [place] [address] Nurse Practitioner Family Medicine 02/05/23 Paper Sales Representative Relationship Specialty Start Date End Date Cynthia Leong MD [address] [place] [address] PCP - [employer] 08/09/20 Cynthia Leong MD [address] [place] [address] PCP - General Family Medicine 01/18/24 Libby Ward NP [address] [place] [address] Nurse Practitioner Family Medicine 02/05/23 Paper Sales Representative Relationship Specialty Start Date End Date Cynthia Leong MD [address] [place] [address] PCP - [employer] 08/09/20 Cynthia Leong MD [address] [place] [address] PCP - General Family Medicine 01/18/24 Libby Ward NP [address] [place] [address] Nurse Practitioner Family Medicine 02/05/23 Paper Sales Representative Relationship Specialty Start Date End Date Cynthia Leong MD [address] [place] [address] PCP - [employer] 08/09/20 Cynthia Leong MD [address] [place] [address] PCP - General Family Medicine 01/18/24 Libby Ward NP [address] [place] [address] Nurse Practitioner Family Medicine 02/05/23 Paper Sales Representative Relationship Specialty Start Date End Date Cynthia Leong MD [address] [place] [address] PCP - [employer] 08/09/20 Cynthia Leong MD [address] [place] [address] PCP - General Family Medicine 01/18/24 Libby Ward NP [address] [place] [address] Nurse Practitioner Family Medicine 02/05/23 Paper Sales Representative Relationship Specialty Start Date End Date Cynthia Leong MD [address] [place] [address] PCP - [employer] 08/09/20 Cynthia Leong MD [address] [place] [address] PCP - General Family Medicine 01/18/24 Libby Ward NP [address] [place] [address] Nurse Practitioner Family Medicine 02/05/23 Paper Sales Representative Relationship Specialty Start Date End Date Cynthia Leong MD [address] [place] [address] PCP - [employer] 08/09/20 Cynthia Leong MD [address] [place] [address] PCP - General Family Medicine 01/18/24 Libby Ward NP [address] [place] [address] Nurse Practitioner Family Medicine 02/05/23 Paper Sales Representative Relationship Specialty Start Date End Date Cynthia Leong MD [address] [place] [address] PCP - [employer] 08/09/20 Cynthia Leong MD [address] [place] [address] PCP - General Family Medicine 01/18/24 Libby Ward NP [address] [place] [address] Nurse Practitioner Family Medicine 02/05/23 Paper Sales Representative Relationship Specialty Start Date End Date Cynthia Leong MD [address] [place] [address] PCP - [employer] 08/09/20 Cynthia Leong MD [address] [place] [address] PCP - General Family Medicine 01/18/24 Libby Ward, TEAM MEMBER [address] [place] [address] Nurse Practitioner Family Medicine 02/05/23 Paper Sales Representative Relationship Specialty Start Date End Date Cynthia Leong MD [address] [place] [address] PCP - [employer] 08/09/20 Cynthia Leong MD [address] [place] [address] PCP - General Family Medicine 01/18/24 Libby Ward NP [address] [place] [address] Nurse Practitioner Family Medicine 02/05/23 Paper Sales Representative Relationship Specialty Start Date End Date Cynthia Leong MD [address] [place] [address] PCP - [employer] 08/09/20 Cynthia Leong MD [address] [place] [address] PCP - General Family Medicine 01/18/24 Libby Ward, TEAM MEMBER [address] [place] [address] Nurse Practitioner Family Medicine 02/05/23 Paper Sales Representative Relationship Specialty Start Date End Date Cynthia Leong MD [address] [place] [address] PCP - [employer] 08/09/20 Cynthia Leong MD [address] [place] [address] PCP - General Family Medicine 01/18/24 Libby Ward NP [address] [place] [address] Nurse Practitioner Family Medicine 02/05/23 Paper Sales Representative Relationship Specialty Start Date End Date Cynthia Leong MD [address] [place] [address] PCP - [employer] 08/09/20 Cynthia Leong MD [address] [place] [address] PCP - General Family Medicine 01/18/24 Libby Ward NP [address] [place] [address] Nurse Practitioner Family Medicine 02/05/23 Paper Sales Representative Relationship Specialty Start Date End Date Cynthia Leong MD [address] [place] [address] PCP - [employer] 08/09/20 Cynthia Leong MD [address] [place] [address] PCP - General Family Medicine 01/18/24 Libby Ward NP [address] [place] [address] Nurse Practitioner Family Medicine 02/05/23 Paper Sales Representative Relationship Specialty Start Date End Date Cynthia Leong MD [address] [place] [address] PCP - [employer] 08/09/20 Cynthia Leong MD [address] [place] [address] PCP - General Family Medicine 01/18/24 Libby Ward NP [address] [place] [address] Nurse Practitioner Family Medicine 02/05/23 Paper Sales Representative Relationship Specialty Start Date End Date Cynthia Leong MD [address] [place] [address] PCP - [employer] 08/09/20 Cynthia Leong MD [address] [place] [address] PCP - General Family Medicine 01/18/24 Libby Ward NP [address] [place] [address] Nurse Practitioner Family Medicine 02/05/23 Paper Sales Representative Relationship Specialty Start Date End Date Cynthia Leong MD [address] [place] [address] PCP - [employer] 08/09/20 Cynthia Leong MD [address] [place] [address] PCP - General Family Medicine 01/18/24 Libby Ward NP [address] [place] [address] Nurse Practitioner Family Medicine 02/05/23 Goals (unrecognized [...] BE BASED ON THE PRIMARY CLINICAL RECORDS. [facility] [employer] [facility]. provides no warranty or guarantee of the accuracy or completeness of information in this document.
[2025-01-11 22:33] LABS: Bilirubin Urine NEGATIVE (NEGATIVE); Blood Urine NEGATIVE (NEGATIVE); Clarity Urine CLEAR (CLEAR); Color Urine YELLOW (YELLOW); Glucose Urine UA 100 mg/dL (NEGATIVE); Ketones Urine TRACE mg/dL (NEGATIVE); Leukocyte Esterase Urine TRACE (NEGATIVE); Nitrite Urine NEGATIVE (NEGATIVE); Protein Urine NEGATIVE (NEG/TRACE); pH Urine 5.5 (5.0-9.0)
[2025-01-11 22:34] LABS: Urine Microscopic Indicated YES
[2025-01-11 22:48] LABS: RBC Urine 0-2 #/HPF (0-2)
[2025-01-11 22:49] LABS: Bacteria Urine TRACE #/HPF (NONE SEEN); Crystals Seen? Seen #/HPF (None Seen); Mucus Urine NONE SEEN (NONE SEEN); Squamous Epithelial Cell Urine RARE #/LPF (NONE/RARE)
[2025-01-11 22:56] LABS: Calcium Carbonate Crystals Ur MODERATE; Calcium Oxalate Crystals Urine FEW; Cast Seen? SEEN #/LPF (NONE SEEN); Hyaline Casts Urine FEW; Urine Culture Indicated NO
[2025-01-11] MEDS: 0.9 % SODIUM CHLORIDE 1,000 ML 75 ML IV (22:57)
[2025-01-12] VITALS (16 sets, daily range): BP systolic 116–193; BP diastolic 73–95; PULSE 69–102; TEMP 36.3–36.4; O2SAT 92–97
[2025-01-12] MEDS: ACETAMINOPHEN 500 MG TABLET 1000 MG PO (05:40)
[2025-01-12] MEDS: LEVOTHYROXINE SODIUM 75 MCG TABLET PO (05:40)
--- NOTE | 2025-01-12 05:47 | P.HP_ITS ---
HPI H&P: HPI History of Present Illness Chief complaint: shoulder px numerous falls Narrative: Failed did not at bedside, patient is very conversational although not sure how good her overall memory is Patient with a fall twice in the last week, left wrist fracture and left humeral head fracture, patient denies any complaints when she has had these falls and denies any loss of consciousness Opioid HPI Opioid Management Most Recent Pain and Opioid Data: Last Pain Scale 6 Today, 05:00 Last Pain Assessment 01/11/25, 23:00 Last ORT Total Score 0 01/11/25, 22:37 Last ORT Risk Category Low Risk 01/11/25, 22:37 Review of Systems ROS Status of ROS 10 or more systems reviewed and unremark able except as noted in history and below [facility] Medical History Essential (primary) hypertension ?I10 - Essential (primary) hypertension (ICD-10) Vertigo ?R42 - Dizziness and giddiness (ICD-10) Sinus arrhythmia seen on electrocardiogram ?I49.8 - Other specified cardiac arrhythmias (ICD-10) Hypothyroid ?E03.9 - Hypothyroidism, unspecified (ICD-10) Sacroiliac dysfunction ?M53.3 - Sacrococcygeal disorders, not elsewhere classified (ICD-10) Lumbar spondylosis ?M47.816 - Spondylosis without myelopathy or radiculopathy, lumbar region (ICD-10) Lumbar stenosis with neurogenic claudication ?M48.062 - Spinal stenosis, lumbar region with neurogenic claudication (ICD- 10) DDD (degenerative disc disease), lumbar ?M51.36 - Other intervertebral disc degeneration, lumbar region (ICD-10) Low back pain ?M54.50 - Low back pain, unspecified (ICD-10) Irregular heartbeat ?I49.9 - Cardiac arrhythmia, unspecified (ICD-10) Acid reflux ?K21.9 - Gastro-esophageal reflux disease without esophagitis (ICD-10) Rheumatoid arthritis ?M06.9 - Rheumatoid arthritis, unspecified (ICD-10) Osteoarthritis ?M19.90 - Unspecified osteoarthritis, unspecified site (ICD-10) Hearing deficit ?H91.90 - Unspecified hearing loss, unspecified ear (ICD-10) Hypertension ?I10 - Essential (primary) hypertension (ICD-10) High cholesterol ?E78.00 - Pure hypercholesterolemia, unspecified (ICD-10) Family History (Updated 01/11/25 @ 22:27 by Patti Butler) Father Family history of hypertension Family history of stroke Mother Family history of hypertension Family history of myocardial infarction, Onset Age: 45 Social History Within the past year, how often did you have a drink containing alcohol: monthly or less Within the past year, how often did you have six or more drinks on one occasion: never Smoking status: Never smoker Non-prescribed substance use: denies use 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 Known occupational exposures/hazards: No Highest level of school completed/degree received: Master's degree Are you now , , , , never or living with a partner: In a typical week, how many times do you talk on the telephone with family, friends, or neighbors: twice per week How often do you get together with friends or relatives: twice per week How often do you attend caodaism or adventist services: 4 or more times per year Little interest or pleasure in doing things: not at all Feeling down, depressed, or hopeless: not at all Feel stressed/tense/nervous/anxious/difficulty sleeping: only a little Life stressor details: medical issues Gender Identity: female Meds Home Medications and Allergies Home Medications ?Medication ?Instructions ?Recorded ?Confirmed ?Type atorvastatin 10 mg tablet 10 mg PO DAILY 07/29/2312/31 History levothyroxine 75 mcg tablet 75 mcg PO DAILY 07/29/23 0 01/11/25 History metoprolol succinate 25 mg 25 mg PO DAILY 07/29/2312/31 History tablet,extended release 24 hr omeprazole 40 mg capsule,delayed 40 mg PO DAILY 01/11/25 History release acetaminophen 500 mg tablet 1,000 mg PO Q6H PRN pain 0 09/13/23 01/11/25 History (Tylenol Extra Strength) fluticasone propionate 50 2 spray intranasal QD #16 gr ams 10/12/23 01/11/25 Rx mcg/actuation nasal spray,suspension lisinopril 5 mg tablet 5 mg PO DAILY 01/07/2501/11 History Allergies Allergy/AdvReac Type Severity Reaction Status Date / Time No Known Drug Allergies Allergy Verified 01/11/25 19:03 Exam Constitutional Vital Signs, click to edit/add: Last Vital Signs Temp 97.6 F 01/12/25 04:00 Pulse 73 01/12/25 04:00 Resp 16 01/12/25 04:00 BP 164/80 H 01/12/25 04:00 Pulse Ox 96 01/12/25 04:00 O2 Del Method Room Air 01/12/25 04:00 Documenting provider has reviewed patient's vital signs: yes Common normals: no apparent distress HENDC Common normals: normocephalic; head/scalp not atraumatic (Multiple bruises) Chest Common normals: inspection of chest normal Cardio Common normals: regular rate and regular rhythm GI Common normals: Normal to inspection, nondistended, normoactive bowel sounds present, soft to palpation and no hepatosplenomegaly Extremity Common normals: abnormal to inspection (1+ edema) Results Labs Labs: Short CBC 01/11/25 Range/Units 20:21 WBC 6.7 (4.0-11.0) 10^3/uL Hgb 11.3 L (12.0-16.0) g/dL Hct 30.7 L (36.0-48.0) % Plt Count 90 L (150-450) 10^3/uL BMP 01/11/25 20:21 Sodium 137 Potassium 3.4 L Chloride 103 Carbon Dioxide 24.2 BUN 20.0 H Creatinine 0.97 Glucose 187 H Calcium 9.6 Liver Function 01/11/25 Range/Units 20:21 Total Bilirubin 0.8 (0.2-1.0) mg/dL AST 20 (15-37) U/L ALT 12 L (14-59) U/L Alkaline Phosphatase 98 (46-116) U/L Albumin 2.9 L (3.4-5.0) g/dL Urine 01/11/25 Range/Units 21:20 Urine Color Yellow (YELLOW) Urine Clarity Clear (CLEAR) Urine pH 5.5 (5.0-9.0) Ur Specific [place] 1.020 (1.005-1.025) Urine Protein Negative (NEG/TRACE) mg/dL Urine Glucose (UA) 100 A (NEGATIVE) mg/dL Assessment and Plan Assessment and Plan (1) Fall: (2) Fracture of head of humerus: (3) Face lacerations: (4) Acute head trauma: (5) Thrombocytopenia: (6) Essential (primary) hypertension: (7) Hypothyroid: (8) Acid reflux: (9) Rheumatoid arthritis: Qualifiers: Rheumatoid factor presence: unspecified presence (10) High cholesterol: Plan Admission findings: Patient with uncontrolled hypertension, status post fall workup in ER unremarkable other than left humeral proximal head fracture, does have positive urinalysis and may be precipitating the fall Left humeral head fracture-plan for orthopedics Acute UTI-this is possibly leading to the falls, IV antibiotics, culture pending Uncontrolled hypertension on admission-maintain home medications and may need adjustments Fall - May need holter at d/c Thrombocytopenia-monitor daily uncertain etiology patient was unaware History of acute blood loss anemia anemia is somewhat worse today, monitor daily Hypokalemia-supplement Hyperglycemia on admission in nonfasting state-improved Moderate protein calorie malnutrition-diet supplement Hypomagnesemia-supplement Hypothyroidism-levels normal can continue home medications GERD-continue home medications Status post fall with fracture x 2 in the last week, PT and OT to evaluate for rehab Admission status: Patient initially placed on observation status, will see how the day progresses for her, if medically necessary treatment ends up spending more than 1 midnight consideration for changing to inpatient status
[2025-01-12 06:00] LABS: Basophils Percent Auto 0.4 % (0.2-2.0); Eosinophils Absolute Auto 0.1 10^3/uL (0.0-0.7); Eosinophils Percent Auto 1.4 % (0.9-7.0); Hematocrit 27.3 % (36.0-48.0); Hemoglobin 9.8 g/dL (12.0-16.0); Immature Granulocytes Abs Auto 0.02 10^3/uL (0.00-0.03); Immature Granulocytes Pct Auto 0.4 % (0.0-0.5); Lymphocytes Absolute Auto 0.8 10^3/uL (1.2-3.8); Lymphocytes Percent Auto 14.1 % (20.5-60.0); Mean Corpuscular HGB Conc 35.9 g/dL (29.9-35.2); Mean Corpuscular Hemoglobin 34.4 pg (26.7-34.0); Mean Corpuscular Volume 95.8 fL (81.0-99.0); Mean Platelet Volume 10.7 fL (9.5-13.5); Monocytes Absolute Auto 0.6 10^3/uL (0.3-0.8); Monocytes Percent Auto 10.1 % (1.7-12.0); Neutrophils Absolute Auto 4.1 10^3/uL (1.4-6.5); Neutrophils Percent Auto 73.6 % (43.0-75.0); Platelet Count 82 10^3/uL (150-450); Red Blood Count 2.85 10^6/uL (4.20-5.40); Red Cell Distribution Width 12.8 % (11.0-15.0); White Blood Count 5.5 10^3/uL (4.0-11.0)
[2025-01-12 06:36] LABS: Alanine Aminotransferase 13 U/L (14-59); Albumin Globulin Ratio 0.9; Albumin Level 2.7 g/dL (3.4-5.0); Alkaline Phosphatase 91 U/L (46-116); Anion Gap 12.3; Aspartate Amino Transferase 16 U/L (15-37); BUN Creatinine Ratio 28.1; Bilirubin Total 0.7 mg/dL (0.2-1.0); Calcium 9.4 mg/dL (8.5-10.1); Carbon Dioxide 26.1 mmol/L (21.0-32.0); Chloride 104 mmol/L (98-107); Creatine Kinase 44 U/L (26-192); Estimated GFR (African America >60 (>=60 mL/min/1.73m^2); Estimated GFR (Non-African Ame >60 (>=60 mL/min/1.73m^2); Globulin 3.1 g/dL; Glucose 119 mg/dL (74-106); Magnesium 1.7 mg/dL (1.8-2.4); Myoglobin 60 ng/mL (9-82); Phosphorus 3.6 mg/dL (2.6-4.7); Potassium 3.4 mmol/L (3.5-5.1); Sodium 139 mmol/L (136-145); Total Protein 5.8 g/dL (6.4-8.2); Troponin I High Sensitivity 31.2 pg/mL (4.0-51.3)
[2025-01-12 07:00] LABS: Thyroid Stimulating Hormone 1.405 uIU/mL (0.358-3.740)
[2025-01-12 07:47] LABS: Glucometer 115 mg/dL (74-106)
--- OUTSIDE RECORDS SUMMARY | 2025-01-12 07:48 | XMS_ITS | Encounter Summary ---
Author Organization [facility] Address [address] [place] [address] Care Team Providers Care Transmitter Operator Name Role Phone Cynthia Hernandez MD Unavailable Libby Ward NP Unavailable [phone] Cynthia Hernandez MD Primary Care Provider [phone] Encounter Details Date Type Department Care Team [...] as of this encounter Care Teams Transmitter Operator Relationship Specialty Start Date End Date Cynthia Hernandez MD [address] [facility] [place] [address] PCP - [employer] 08/09/20 Cynthia Hernandez MD [address] [facility] [place] [address] PCP - General Family Medicine 01/18/24 Libby Ward NP [address] [facility] [place] [address] Nurse Practitioner Family Medicine 02/05/23 documented as of this encounter
--- OUTSIDE RECORDS SUMMARY | 2025-01-12 07:48 | XMS_ITS | Encounter Summary ---
Author Organization [facility] Address [address] [facility] [place] [address] Care Team Providers Care Director Of Early Childhood Education Name Role Phone Cynthia Hernandez MD Unavailable [phone] Cynthia Hernandez MD Primary Care Provider [phone] Libby Ward NP Unavailable [phone] Mariam Glasgow MD Primary Care Provider Cynthia Hernandez MD Primary Care Provider Encounter Details Date Type Department Care Team (Late st Contact Info) Description 10/13/2023 Abstract [facility] [address] [place] [address] Cynthia Hernandez MD [address] [place] [address] Social History Tobacco Use Types [...] of this encounter Care Teams Director Of Early Childhood Education Relationship Specialty Start Date End Date Cynthia Hernandez MD [address] [facility] [place] [address] PCP - Aet 08/09/20 Cynthia Hernandez MD [address] [facility] [place] [address] PCP - General Family Medicine 02/05/23 12/28/23 Mariam Glasgow MD [address] [place] [address] PCP - General Geriatric Medicine 12/29/23 01/17/24 Cynthia Hernandez MD [address] [facility] [place] [address] PCP - General Family Medicine 01/18/24 Libby Ward NP [address] [place] [address] Nurse Practitioner Family Medicine 02/05/23 documented as of this encounter
--- OUTSIDE RECORDS SUMMARY | 2025-01-12 07:48 | XMS_ITS | Encounter Summary ---
Author Organization [facility] Address [address] [facility] [place] [address] Care Team Providers Care Pastry Supervisor Name Role Phone Cynthia Hernandez MD Unavailable Cynthia Hernandez MD Primary Care Provider Libby Ward NP Unavailable [phone] Mariam Glasgow MD Primary Care Provider Cynthia Hernandez MD Primary Care Provider [phone] Encounter Details Date Type Department Care Team (Late st Contact Info) Description 10/10/2023 Abstract [facility] [address] [place] [address] Cynthia Hernandez MD [address] [place] [address] Social History Tobacco Use Types [...] documented as of this encounter Care Teams Pastry Supervisor Relationship Specialty Start Date End Date Cynthia Hernandez MD [address] [facility] [place] [address] PCP - Aet 08/09/20 Cynthia Hernandez MD [address] [facility] [place] [address] PCP - General Family Medicine 02/05/23 12/28/23 Mariam Glasgow MD [address] [place] [address] PCP - General Geriatric Medicine 12/29/23 01/17/24 Cynthia Hernandez MD [address] [facility] [address] PCP - General Family Medicine 01/18/24 Libby Ward NP [address] [place] [address] Nurse Practitioner Family Medicine 02/05/23 documented as of this encounter
--- OUTSIDE RECORDS SUMMARY | 2025-01-12 07:48 | XMS_ITS | Encounter Summary ---
Author Organization [facility] Address [address] [place] [address] Care Team Providers Care Junior Staff Accountant Name Role Phone Cynthia Hernandez MD Unavailable [phone] Cynthia Hernandez MD Primary Care Provider [phone] Libby Ward NP Unavailable [phone] Mariam Glasgow MD Primary Care Provider Cynthia Hernandez MD Primary Care Provider [phone] Encounter Details Date Type Department Care Team (Late st Contact Info) Description 03/09/2023 Abstract [facility] [address] [place] [address] Shital Briscoe [employer] SUPERVISOR [address] [place] [address] Social History Tobacco Use Types [...] on filedocumented in this encounter Care Teams Junior Staff Accountant Relationship Specialty Start Date End Date Cynthia Hernandez MD [address] [place] [address] PCP - Aet 08/09/20 Cynthia Hernandez MD [address] [place] [address] PCP - General Family Medicine 02/05/23 12/28/23 Mariam Glasgow MD [address] [place] [address] PCP - General Geriatric Medicine 12/29/23 01/17/24 Cynthia Hernandez MD [address] [place] [address] PCP - General Family Medicine 01/18/24 Libby Ward NP [address] [place], [place] [address] Nurse Practitioner Family Medicine 02/05/23 documented as of this encounter
--- OUTSIDE RECORDS SUMMARY | 2025-01-12 07:48 | XMS_ITS | Encounter Summary ---
Author Organization [facility] Address [address] [place] [address] Care Team Providers Care Lead Cashier Name Role Phone Cynthia Hernandez MD Unavailable [phone] Cynthia Hernandez MD Primary Care Provider Libby Ward NP Unavailable [phone] Mariam Glasgow MD Primary Care Provider Cynthia Hernandez MD Primary Care Provider Encounter Details Date Type Department Care Team (Late st Contact Info) Description 10/13/2023 Abstract [facility] [address] [place] [address] Cynthia Hernandez MD [address] [place] [address] Social History Tobacco Use Types [...] documented as of this encounter Care Teams Lead Cashier Relationship Specialty Start Date End Date Cynthia Hernandez MD [address] [facility] [place] [address] PCP - Aet 08/09/20 Cynthia Hernandez MD [address] [facility] [place] [address] PCP - General Family Medicine 02/05/23 12/28/23 Mariam Glasgow MD [address] [place] [address] PCP - General Geriatric Medicine 12/29/23 01/17/24 Cynthia Hernandez MD [address] [facility] [place] [address] PCP - General Family Medicine 01/18/24 Libby Ward NP [address] [place] [address] Nurse Practitioner Family Medicine 02/05/23 documented as of this encounter
--- OUTSIDE RECORDS SUMMARY | 2025-01-12 07:48 | XMS_ITS | Encounter Summary ---
Author Organization [facility] Address [address] [facility] [place] [address] Care Team Providers Care Quarter Folder Name Role Phone Cynthia Hernandez MD Unavailable Cynthia Hernandez MD Primary Care Provider [phone] Libby Ward NP Unavailable [phone] Mariam Glasgow MD Primary Care Provider Cynthia Hernandez MD Primary Care Provider [phone] Encounter Details Date Type Department Care Team (Late st Contact Info) Description 10/13/2023 Abstract [facility] [address] [place] [address] Cynthia Hernandez MD [address] [place] [address] Social History Tobacco Use Types [...] documented as of this encounter Care Teams Quarter Folder Relationship Specialty Start Date End Date Cynthia Hernandez MD [address] [facility] [place] [address] PCP - Aet 08/09/20 Cynthia Hernandez MD [address] [facility] [place] [address] PCP - General Family Medicine 02/05/23 12/28/23 Mariam Glasgow MD [address] [place] [address] PCP - General Geriatric Medicine 12/29/23 01/17/24 Cynthia Hernandez MD [address] [facility] [place] [address] PCP - General Family Medicine 01/18/24 Libby Ward NP [address] [place] [address] Nurse Practitioner Family Medicine 02/05/23 documented as of this encounter
--- OUTSIDE RECORDS SUMMARY | 2025-01-12 07:48 | XMS_ITS | Encounter Summary ---
Author Organization [facility] Address [address] [facility] [place] [address] Care Team Providers Care Automotive Internet Sales Consultant Name Role Phone Cynthia Hernandez MD Unavailable [phone] Cynthia Hernandez MD Primary Care Provider Libby Ward NP Unavailable [phone] Mariam Glasgow MD Primary Care Provider Cynthia Hernandez MD Primary Care Provider Encounter Details Date Type Department Care Team (Late st Contact Info) Description 10/08/2023 Abstract [facility] [address] [place] [address] Cynthia Hernandez MD [address] [place] [address] Social History Tobacco Use Types [...] as of this encounter Care Teams Automotive Internet Sales Consultant Relationship Specialty Start Date End Date Cynthia Hernandez MD [address] [facility] [place] [address] PCP - Aet 08/09/20 Cynthia Hernandez MD [address] [facility] [place] [address] PCP - General Family Medicine 02/05/23 12/28/23 Mariam Glasgow MD [address] [place] [address] PCP - General Geriatric Medicine 12/29/23 01/17/24 Cynthia Hernandez MD [address] [facility] [place] [address] PCP - General Family Medicine 01/18/24 Libby Ward NP [address] [place] [address] Nurse Practitioner Family Medicine 02/05/23 documented as of this encounter
--- OUTSIDE RECORDS SUMMARY | 2025-01-12 07:48 | XMS_ITS | Encounter Summary ---
Author Organization [facility] Address [address] [facility] [place] [address] Care Team Providers Care Pump Assembler Name Role Phone Cynthia Hernandez MD Unavailable [phone] Cynthia Hernandez MD Primary Care Provider Libby Ward NP Unavailable [phone] Mariam Glasgow MD Primary Care Provider Cynthia Hernandez MD Primary Care Provider [phone] Encounter Details Date Type Department Care Team (Late st Contact Info) Description 07/30/2023 Abstract [facility] [address] [place] [address] Cynthia Hernandez MD [address] [place] [address] Social History Tobacco Use Types Packs/Day Years Used Date Smoking Tobacco: Never Smokeless Tobacco: Never Alcohol Use Standard Drinks/Week Comments Not Currently 0 (1 standard drink = 0.6 oz pure alcohol) 1 glass of wine past year. Caffeine intake : 1-2 cups/day coffee PHQ-2 Answer Date Recorded Patient Health Questionnaire-2 Score 1 08/03/2023 Comments Unknown Sex and Gender Information Value Date Recorded Sex Assigned at Not on file Legal Sex Female 7:18 PM EDT Gender Identity Female 10/21/2022 7:18 PM EDT Sexual Orientation Not on file documented as of this encounter Plan of Treatment Not on file documented as of this encounter Visit Diagnoses Not on filedocumented in this encounter Care Teams Pump Assembler Relationship Specialty Start Date End Date Cynthia Hernandez MD [address] [facility] [place] [address] PCP - [employer]et[employer] 08/09/20 Cynthia Hernandez MD [address] [facility] [place] [address] PCP - General Family Medicine 02/05/23 12/28/23 Mariam Glasgow MD [address] [place] [address] PCP - General Geriatric Medicine 12/29/23 01/17/24 Cynthia Hernandez MD [address] [facility] [place] [address] PCP - General Family Medicine 01/18/24 Libby Ward NP [address] [facility] [address] [place], [place] [address] Nurse Practitioner Family Medicine 02/05/23 documented as of this encounter
--- OUTSIDE RECORDS SUMMARY | 2025-01-12 07:48 | XMS_ITS | Encounter Summary ---
Author Organization [facility] Address [address] [facility] [place] [address] Care Team Providers Care Political Advisor Name Role Phone Cynthia Hernandez MD Unavailable [phone] Cynthia Hernandez MD Primary Care Provider Libby Ward NP Unavailable [phone] Mariam Glasgow MD Primary Care Provider Cynthia Hernandez MD Primary Care Provider [phone] Encounter Details Date Type Department Care Team (Late st Contact Info) Description 10/12/2023 Abstract [facility] [address] [place] [address] Cynthia Hernandez MD [address] [place] [address] Social History Tobacco Use Types [...] as of this encounter Care Teams Political Advisor Relationship Specialty Start Date End Date Cynthia Hernandez MD [address] [facility] [place] [address] PCP - Aet 08/09/20 Cynthia Hernandez MD [address] [facility] [place] [address] PCP - General Family Medicine 02/05/23 12/28/23 Mariam Glasgow MD [address] [place] [address] PCP - General Geriatric Medicine 12/29/23 01/17/24 Cynthia Hernandez MD [address] [facility] [place] [address] PCP - General Family Medicine 01/18/24 Libby Ward NP [address] [place] [address] Nurse Practitioner Family Medicine 02/05/23 documented as of this encounter
--- OUTSIDE RECORDS SUMMARY | 2025-01-12 07:48 | XMS_ITS | Encounter Summary ---
Author Organization [facility] Address [address] [place] [address] Care Team Providers Care Pizza Driver Name Role Phone Cynthia Hernandez MD Unavailable [phone] Libby Ward NP Unavailable [phone] Cynthia Hernandez MD Primary Care Provider [phone] Encounter Details Date Type Department Care Team (Late st Contact Info) Description 04/03/2024 Abstract [facility] [address] [place] [address] Cynthia Hernandez MD [address] [place] [address] Social History Tobacco Use Types [...] documented as of this encounter Care Teams Pizza Driver Relationship Specialty Start Date End Date Cynthia Hernandez MD [address] [place] [address] PCP - Aet 08/09/20 Cynthia Hernandez MD [address] [place] [address] PCP - General Family Medicine 01/18/24 Libby Ward NP [address] [place], [place] [address] Nurse Practitioner Family Medicine 02/05/23 documented as of this encounter
--- OUTSIDE RECORDS SUMMARY | 2025-01-12 07:48 | XMS_ITS | Encounter Summary ---
Author Organization [facility] Address [address] [place] [address] Care Team Providers Care Paving Bed Maker Name Role Phone Cynthia eHrnandez MD Unavailable [phone] Libby Ward NP Unavailable [phone] Cynthia Hernandez MD Primary Care Provider [phone] Encounter Details Date Type Department Care Team (Late st Contact Info) Description 01/04/2025 Bamboo flowsheet [facility] [address] [place] [address] Clara Echeverria, THELMA Social History Tobacco [...] documented as of this encounter Care Teams Paving Bed Maker Relationship Specialty Start Date End Date Cynthia Hernandez MD [address] [place] [address] PCP - Aet 08/09/20 Cynthia Hernandez MD [address] [place] [address] PCP - General Family Medicine 01/18/24 Libby Ward NP [address] [place] [address] Nurse Practitioner Family Medicine 02/05/23 documented as of this encounter
--- OUTSIDE RECORDS SUMMARY | 2025-01-12 07:48 | XMS_ITS | CCD ---
Author Organization [facility] Care Team Providers Care Mushroom Spawn Maker Name Role Phone Ap Holland Unavailable SANJEEV [...] Facility (7 sources) Pollen Drug allergy Unknown [facility] Other (1 source) Pollen Drug allergy (disorder) 3 [facility] Repository (20 sources) Octacosanol Propensity to adverse [...] Oral ly Once a day Active calcitriol 0.19032 mg oral capsule (20 sources) Vitamin D3 [...] 06/13/2024 Discontinued (Reorder) [facility] Metoprolol Succinate 50 MG [...] (COVID-19) RNA RADHA+probe Ql (Unsp spec) Negative [facility] No Panel Informationon 09-26 FLU A Negative [facility] FLU B Negative [facility] Interpretation and review of laboratory results Normal [facility] CBC W Auto Differential pane l (Bld)on 06-23-2024 Basophils (Bld) [#/Vol] 11 10*3/uL [facility] Basophils/100 WBC (Bld) 0.3 % [facility] Eosinophils (Bld) [#/Vol] 68 10*3/uL [facility] Eosinophils/100 WBC (Bld) 1.9 % [facility] Erythrocyte distribution width (RBC) [Ratio] 13 % 11.0 - 15.0 % [facility] Hematocrit (Bld) [Volume fraction] 33.6 % Low 35.0 - 45.0 % [facility] Hemoglobin (Bld) [Mass/Vol] 11.9 g/dL 11.7 - 15.5 g/dL [facility] Lymphocytes (Bld) [#/Vol] 486 10*3/uL Low [facility] Lymphocytes/100 WBC (Bld) 13.5 % [facility] MCH (RBC) [Entitic mass] 36.5 pg High 27.0 - 33.0 pg [facility] MCHC (RBC) [Mass/Vol] 35.4 g/dL 32.0 - 36.0 g/dL [facility] Comment on above: For adults, a slight decrease in the calculated MCHC value (in the range of 30 to 32 g/dL) is most likely not clinically significant; however, it should be interpreted with caution in correlation with other red cell parameters and the patient's clinical condition. MCV (RBC) [Entitic vol] 103.1 fL High 80.0 - 100.0 fL [facility] Monocytes (Bld) [#/Vol] 508 10*3/uL [facility] Monocytes/100 WBC (Bld) 14.1 % [facility] Neutrophils (Bld) [#/Vol] 2527 10*3/uL [facility] Neutrophils/100 WBC (Bld) 70.2 % [facility] Platelet mean volume (Bld) [Entitic vol] 10.5 fL 7.5 - 12.5 fL [facility] Platelets (Bld) [#/Vol] 96 10*3/uL Low [facility] RBC (Bld) [#/Vol] 3.26 10*6/uL Low [facility] WBC (Bld) [#/Vol] 3.6 10*3/uL Low [facility] Laboratory - Chemistry and C hemistry - challengeon 06-23-2024 Albumin [Mass/Vol] 3.6 g/dL 3.6 - 5.1 g/dL [facility] Albumin/Globulin [Mass ratio] 1.6 {ratio} [facility] ALP [Catalytic activity/Vol] 72 U/L 37 - 153 U/L [facility] ALT [Catalytic activity/Vol] 23 U/L 6 - 29 U/L [facility] AST [Catalytic activity/Vol] 20 U/L 10 - 35 U/L [facility] Bilirubin [Mass/Vol] 0.7 mg/dL 0.2 - 1 .2 mg/dL [facility] Calcium [Mass/Vol] 9.2 mg/dL 8.6 - 10. 4 mg/dL [facility] Chloride [Moles/Vol] 103 mmol/L 98 - 11 0 mmol/L [facility] CO2 [Moles/Vol] 29 mmol/L 20 - 32 mmol/L [facility] Cobalamin (Vitamin B12) [Mass/Vol] 222 pg/mL 200 - 1100 pg/mL [facility] Comment on above: Please Note: Although [...] 0.98 mg/dL High 0.60 - 0.95 mg/dL [facility] GFR/1.73 sq M.predicted among non-blacks MDRD (S/P/Bld) [Vol rate/Area] 58 mL/min/{1.73_m2} Low > OR = 60 mL/min/1.73m2 [facility] Globulin (S) [Mass/Vol] 2.2 g/dL [facility] Glucose [Mass/Vol] 146 mg/dL High 65 - 99 mg/dL [facility] Comment on above: Fasting reference interval For someone without known diabetes, a glucose value >125 mg/dL indicates that they may have diabetes and this should be confirmed with a follow-up test. Potassium [Moles/Vol] 3.6 mmol/L 3.5 - 5.3 mmol/L [facility] Protein [Mass/Vol] 5.8 g/dL Low 6.1 - 8.1 g/dL [facility] Sodium [Moles/Vol] 138 mmol/L 135 - 146 mmol/L [facility] TSH Qn 2.26 m[IU]/L [facility] Urea nitrogen [Mass/Vol] 27 mg/dL High 7 - 25 mg/dL [facility] Urea nitrogen/Creatinine [Mass ratio] 28 mg/mg High [facility] Lipid 1996 panelon 4 Cholesterol [Mass/Vol] 174 mg/dL NINF - 200 mg/dL [facility] Cholesterol in HDL [Mass/Vol] 61 mg/dL > OR = 50 [facility] Cholesterol in LDL [Mass/Vol] 86 mg/dL mg/dL (calc) [facility] Comment on above: Reference range: <10 [...] LDL-C. Georgi SS et al. CLAUDIA. 2013;310(19): 3344-8738 (http://education.KAI Square/faq/VRM513) Cholesterol non HDL [Mass/Vol] 113 mg/dL [facility] Comment on above: For patients with di abetes plus 1 major ASCVD risk factor, treating to a non-HDL-C goal of <100 mg/dL (LDL-C of <70 mg/dL) is considered a therapeutic option. Cholesterol.total/Cho lesterol in HDL [Mass ratio] 2.9 {ratio} [facility] Triglyceride [Mass/Vol] 168 mg/dL High [facility] - 150 mg/dL [facility] No Panel Informationon 06-23 Interpretation and review of laboratory results Abnormal [facility] Performing Organization Information Site ID: QPT Name: [facility] Address: [address] [place] [address], [address] [place] [id number] Director: Juan Alberto Harerll MD [facility] Urinalysis macro (dipstick) panel (U)on 05-18-2024 Bilirubin, UA Negative Negative - 4(70) +++ mg/dL [facility] Blood, UA Negative Negative - 50 Mikal/mcL [facility] Clarity, UA Cloudy [facility] Color, UA Yellow [facility] Glucose, UA Negative Negative - 2000(110) ++++ mg/dL [facility] Ketones, UA Negative Negative - 160(16) ++++ mg/dL [facility] Leukocytes, UA Positive Negative - 500+++ Dustin/mcL [facility] Nitrite, UA Negative Negative - Positive [facility] pH, UA 5.0 5 - 9 [facility] Protein, UA Positive Negative - 2000(20) ++++ mg/dL [facility] Spec Grav, UA 1.005 1 - 1.03 [facility] Urobilinogen, UA 1.0 0.2 - 12 mg/dL [facility] William 10-08-2023 L Specimen: [id number] Received: 10/11/23 Status: MAURI Ga Num: [id number] Spec Type: Surgical Subm Dr: Charles Hendricks Tissues: A Femoral Head - Fracture (RT HIP) Procedures: HE/2, Gross/Micro L4, Decalcification Age/ Patient Sex Location Account Attending Physician Liz,Yvonne 77/F LABELL [id number] Charles Hendricks SPEC NUM: [id number] RECD: 10/11/23 STATUS: MAURI REQ NUM: [id number] JAVI: 10/08/[address]: Charles Hendricks ENTERED: [...] of the femoral neck is xiong-red, trabecular. Coater Smoking Pipe are submitted following decalcification in 2 cassettes as follows: A1 - Femoral head A2 - Reamings from femoral neck CPT Codes 56800, 94820 -------- -------- Specimen: [id number] Received: 10/11/23 Status: MAURI Roblerolaurent Num: [id number] Spec Type: Surgical Subm Dr: Charles Hendricks Tissues: A Femoral Head - Fracture (RT HIP) Procedures: HE/2, Gross/Micro L4, Decalcification -------- Patient: Yvonne Liz [id number] (Continued) -------- Signed (signature on file) Agatha Brantley MD 10/18/23 1237 Normal [facility] XR hip RT min 2V(w/wo pelvis )*on 05-10-2023 XR hip RT min 2V(w/wo pelvis)* [address] [address] XRay Report Signed Patient: Yvonne Liz MR#: [id number] [birth year] : 1945 Acct:[id number] Age/Sex: 77 / F ADM Date: 05/10/23 Loc: XD Room: Type: [facility] Attending Dr: Ap Holland MD Copies [...] Nick Stokes M.D.05/10/2023 3:23 PM Dictation Location: [place] [address] Transcribed By: [facility] 05/10/23 152 Dictated By: Nick Stokes DO 05/10/23 1521 Signed By: 05/10/23 1523 [facility] XR Spine Lumbar Complete w/F maxi AND [place] 12-10-2022 XR Spine Lumbar Complete w/Flex AND [...] Motley on 12/10/2022 1457 Normal [facility] XR Hip Complete Right*on XR Hip Complete Right* HISTORY: Posterior hip radiating pain falls x 2 years FINDINGS: Mild bilateral superior medial hip joint space loss. No pincer or CAM deformities. Prominent arterial calcifications. IMPRESSION: 1. 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 Report reported and signed by Bonilla Mckeon on 04/29/2022 1031 Normal [facility] Specialist Complete Blood Count with Au to Diffon 01-13-2022 Basophils (Bld) [#/Vol] 0.06 10*3/uL Normal 0.00-0.20 [facility] Specialist Comment on above: Performed By: #### V ITD, CMP, TSH reflex FT4, CBCAD, FE Prof #### [facility] [address], [place] [id number] Basophils/100 WBC (Bld) 1.3 % Normal [facility] Specialist Comment on above: Performed By: #### V ITD, CMP, TSH reflex FT4, CBCAD, FE Prof #### [facility] [address], [place] [id number] Eosinophils (Bld) [#/Vol] 0.36 10*3/uL Normal 0.02-0.50 [facility] Specialist Comment on above: Performed By: #### V ITD, CMP, TSH reflex FT4, CBCAD, FE Prof #### [facility] [address], [place] [id number] Eosinophils/100 WBC (Bld) 7.6 % Normal [facility] Specialist Comment on above: Performed By: #### V ITD, CMP, TSH reflex FT4, CBCAD, FE Prof #### [facility] [address], [place] [id number] Erythrocyte distribution width (RBC) [Ratio] 12.1 % Normal 11.0-15.0 [facility] Specialist Comment on above: Performed By: #### V ITD, CMP, TSH reflex FT4, CBCAD, FE Prof #### [facility] [address], [place] [id number] Hematocrit (Bld) [Volume fraction] 34.0 % Low 35.0-47.0 [facility] Specialist Comment on above: Performed By: #### V ITD, CMP, TSH reflex FT4, CBCAD, FE Prof #### [facility] [address], [place] [id number] Hemoglobin (Bld) [Mass/Vol] 11.9 g/dL Normal 11.6-15.5 [facility] Specialist Comment on above: Performed By: #### V ITD, CMP, TSH reflex FT4, CBCAD, FE Prof #### [facility] [address], [place] [id number] Lymphocytes (Bld) [#/Vol] 1.2 10*3/uL Normal 0.9-3.9 [facility] Specialist Comment on above: Performed By: #### V ITD, CMP, TSH reflex FT4, CBCAD, FE Prof #### [facility] [address], [place] [id number] Lymphocytes/100 WBC (Bld) 26.1 % Normal [facility] Specialist Comment on above: Performed By: #### V ITD, CMP, TSH reflex FT4, CBCAD, FE Prof #### [facility] [address], [place] [id number] MCH (RBC) [Entitic mass] 34.0 pg High 27.0-33.0 [facility] Comment on above: Performed By: #### V ITD, CMP, TSH reflex FT4, CBCAD, FE Prof #### [facility] [address], [place] [id number] MCHC (RBC) [Mass/Vol] 35.0 g/dL Normal 32.0-36.0 [facility] Comment on above: Performed By: #### V ITD, CMP, TSH reflex FT4, CBCAD, FE Prof #### [facility] [address], [place] [id number] MCV (RBC) [Entitic vol] 97 fL Normal 80-100 [facility] Specialist Comment on above: Performed By: #### V ITD, CMP, TSH reflex FT4, CBCAD, FE Prof #### [facility] [address], [place] [id number] Monocytes (Bld) [#/Vol] 0.4 10*3/uL Normal 0.2-0.9 [facility] Specialist Comment on above: Performed By: #### V ITD, CMP, TSH reflex FT4, CBCAD, FE Prof #### [facility] [address], [place] [id number] Monocytes/100 WBC (Bld) 8.9 % Normal [facility] Specialist Comment on above: Performed By: #### V ITD, CMP, TSH reflex FT4, CBCAD, FE Prof #### [facility] [address], [place] [id number] Neutrophils (Bld) [#/Vol] 2.6 10*3/uL Normal 1.5-7.8 [facility] Specialist Comment on above: Performed By: #### V ITD, CMP, TSH reflex FT4, CBCAD, FE Prof #### [facility] [address], [place] [id number] Neutrophils/100 WBC (Bld) 55.9 % Normal [facility] Specialist Comment on above: Performed By: #### V ITD, CMP, TSH reflex FT4, CBCAD, FE Prof #### [facility] [address], [place] [id number] Platelet mean volume (Bld) [Entitic vol] 11.00 fL Normal 7.50-12.50 [facility] Specialist Comment on above: Performed By: #### V ITD, CMP, TSH reflex FT4, CBCAD, FE Prof #### [facility] [address], [place] [id number] Platelets (Bld) [#/Vol] 102 10*3/uL Low 140-400 [facility] Specialist Comment on above: Performed By: #### V ITD, CMP, TSH reflex FT4, CBCAD, FE Prof #### [facility] [address], [place] [id number] RBC (Bld) [#/Vol] 3.50 10*6/uL Low 3.90-5.20 [facility] Specialist Comment on above: Performed By: #### V ITD, CMP, TSH reflex FT4, CBCAD, FE Prof #### [facility] [address], [place] [id number] RDW-SD 42.1 fL Normal 37.0-50.0 [facility] Specialist Comment on above: Performed By: #### V ITD, CMP, TSH reflex FT4, CBCAD, FE Prof #### [facility] [address], [place] [id number] WBC (Bld) [#/Vol] 4.7 10*3/uL Normal 3.8-11.0 [place] [employer] Comment on above: Performed By: #### V ITD, CMP, TSH reflex FT4, CBCAD, FE Prof #### [facility] [address], [place] [id number] [facility] 01-13-2022 Albumin [Mass/Vol] 4.2 g/dL Normal 3.6-5.1 [place] [facility] Comment on above: Performed By: #### V ITD, CMP, TSH reflex FT4, CBCAD, FE Prof #### [facility] [address], [place] [id number] Albumin/Globulin [Mass ratio] 1.8 {ratio} Normal 1.0-2.5 [facility] Comment on above: Performed By: #### V ITD, CMP, TSH reflex FT4, CBCAD, FE Prof #### [facility] [address], [place] [id number] ALP [Catalytic activity/Vol] 83 U/L Normal 35-119 [facility] Comment on above: Performed By: #### V ITD, CMP, TSH reflex FT4, CBCAD, FE Prof #### [facility] [address], [place] [id number] ALT [Catalytic activity/Vol] 28 U/L Normal 6-33 [facility] Comment on above: Result Comment: 07/09 Female reference range changed. Performed By: #### V ITD, CMP, TSH reflex FT4, CBCAD, FE Prof #### [facility] [address], [place] [id number] Anion gap [Moles/Vol] 12 mmol/L Normal 12-20 [facility] Specialist Comment on above: Result Comment: Effe ctive 08/14/2019 reference range changed. Performed By: #### V ITD, CMP, TSH reflex FT4, CBCAD, FE Prof #### [facility] [address], [place] [id number] AST [Catalytic activity/Vol] 36 U/L High 9-34 [facility] Comment on above: Performed By: #### V ITD, CMP, TSH reflex FT4, CBCAD, FE Prof #### [facility] [address], [place] [id number] Bilirubin [Mass/Vol] 0.48 mg/dL Normal 0.30-1.20 [facility] Comment on above: Performed By: #### V ITD, CMP, TSH reflex FT4, CBCAD, FE Prof #### [facility] [address], [place] [id number] BUN/CREA 19 Ratio Normal 6-22 [facility] Comment on above: Performed By: #### V ITD, CMP, TSH reflex FT4, CBCAD, FE Prof #### [facility] [address], [place] [id number] Calcium [Mass/Vol] 9.5 mg/dL Normal 8.6-10.2 [facility] Comment on above: Performed By: #### V ITD, CMP, TSH reflex FT4, CBCAD, FE Prof #### [facility] [address], [place] [id number] Chloride [Moles/Vol] 105 mmol/L Normal 98-107 [facility] Comment on above: Performed By: #### V ITD, CMP, TSH reflex FT4, CBCAD, FE Prof #### [facility] [address], [place] [id number] CO2 [Moles/Vol] 27 mmol/L Normal 20-31 [facility] Comment on above: Performed By: #### V ITD, CMP, TSH reflex FT4, CBCAD, FE Prof #### [facility] [address], [place] [id number] Creatinine [Mass/Vol] 1.0 mg/dL Normal 0.6-1.4 [facility] Comment on above: Performed By: #### V ITD, CMP, TSH reflex FT4, CBCAD, FE Prof #### [facility] [address], [place] [id number] eGFRAA 67 mL/min/1.73m2 Normal >60 [facility] Comment on above: Performed By: #### V ITD, CMP, TSH reflex FT4, CBCAD, FE Prof #### [facility] [address], [place] [id number] eGFRNAA 55 mL/min/1.73m2 Low >60 [facility] Comment on above: Performed By: #### V ITD, CMP, TSH reflex FT4, CBCAD, FE Prof #### [facility] [address], [place] [id number] Globulin (S) [Mass/Vol] 2.3 g/dL Normal 1.9-3.7 [facility] Comment on above: Performed By: #### V ITD, CMP, TSH reflex FT4, CBCAD, FE Prof #### [facility] [address], [place] [id number] Glucose [Mass/Vol] 85 mg/dL Normal 65-99 [place] [facility] Comment on above: Result Comment: For FASTING Glucose --- ADA reference ranges: Normal 65-99 mg/dl Prediabetes 100-125 Diabetes >/= 126 Performed By: #### V ITD, CMP, TSH reflex FT4, CBCAD, FE Prof #### [facility] [address], [place] [id number] Potassium [Moles/Vol] 3.8 mmol/L Normal 3.5-5.5 [facility] Comment on above: Performed By: #### V ITD, CMP, TSH reflex FT4, CBCAD, FE Prof #### [facility] [address], [place] [id number] Protein [Mass/Vol] 6.5 g/dL Normal 6.1-8.1 [place] [facility] Comment on above: Performed By: #### V ITD, CMP, TSH reflex FT4, CBCAD, FE Prof #### [facility] [address], [place] [id number] Sodium [Moles/Vol] 140 mmol/L Normal 135-146 [place] [facility] Comment on above: Performed By: #### V ITD, CMP, TSH reflex FT4, CBCAD, FE Prof #### [facility] [address], [place] [id number] Urea nitrogen [Mass/Vol] 19 mg/dL Normal 7-25 [facility] Comment on above: Performed By: #### V ITD, CMP, TSH reflex FT4, CBCAD, FE Prof #### [facility] [address], [place] [id number] Iron Profileon 01-13-2022 %FESAT 45 % Normal 11-50 [facility] Specialist Comment on above: Performed By: #### V ITD, CMP, TSH reflex FT4, CBCAD, FE Prof #### [facility] [address], [place] [id number] FE 129 ug/dL Normal 40-190 [facility] Specialist Comment on above: Result Comment: Refe rence range change 06/25/2017. Prior reference range F 37-145 ug/dL, M 59-158 ug/dL. Performed By: #### V ITD, CMP, TSH reflex FT4, CBCAD, FE Prof #### [facility] [address], [place] [id number] TIBC 284 ug/dL Normal 250-450 [facility] Specialist Comment on above: Performed By: #### V ITD, CMP, TSH reflex FT4, CBCAD, FE Prof #### [facility] [address], [place] [id number] UIBC 155 ug/dL Normal 112-347 [facility] Specialist Comment on above: Performed By: #### V ITD, CMP, TSH reflex FT4, CBCAD, FE Prof #### [facility] [address], [place] [id number] TSH w/ Reflex to Free T4on 0 01-13-2022 TSH 3.100 uIU/mL Normal 0.400-4.500 [facility] Comment on above: Performed By: #### V ITD, CMP, TSH reflex FT4, CBCAD, FE Prof #### [facility] [address], [place] [id number] US Venous, Bilateral, Lower [place] 01-13-2022 US Venous, Bilateral, Lower Ext HISTORY: [...] by Bonilla Mckeon on 01/13/2022 1441 Normal [facility] Specialist Vitamin B12/Folateon 022 Cobalamin (Vitamin B12) [Mass/Vol] 258 pg/mL Normal 211-946 [facility] Comment on above: Performed By: #### B 12/Fol #### [facility] [address], [place] [id number] FOL 11.6 ng/mL Normal >4.7 [facility] Specialist Comment on above: Result Comment: Refe rence range change 06/25/2017. Prior reference range F 4.8-37.3 ng/mL, M 4.5-32.2 ng/mL. Performed By: #### B 12/Fol #### [facility] [address], [place] [id number] Vitamin D 25-OHon 01-13-2022 VIT D 25 OH 30 ng/ml Normal >29 [facility] Comment on above: Result Comment: Ching min D Status Deficiency <20 ng/mL Insufficiency 20-29 ng/mL Optimal 30-100 ng/mL Possible Toxicity >=150 ng/mL Performed By: #### V ITD, CMP, TSH reflex FT4, CBCAD, FE Prof #### [facility] [address], [place] [id number] Vital Signs Date Time Vital Sign Value Performing Clinician Facility 10-06-2024 14:15-0500 Body height 160 cm Cynthia Leong MD Work Phone: [facility] 10-06-2024 14:15-0500 Body mass index (BMI) [Ratio] 25.9 kg/m2 Cynthia Leong MD Work Phone: [facility] 10-06-2024 14:15-0500 Body weight 66.32 kg Cynthia Leong MD Work Phone: [facility] 10-06-2024 14:15-0500 Diastolic blood pressure 90 mm[Hg] Cynthia Leong MD Work Phone: [facility] 10-06-2024 14:15-0500 Heart rate 88 /min Cynthia Leong MD Work Phone: [facility] 10-06-2024 14:15-0500 SaO2% (BldA) [Mass fraction] 97 % Cynthia Leong MD Work Phone: [facility] 10-06-2024 14:15-0500 Systolic blood pressure 138 mm[Hg] Cynthia Leong MD Work Phone: [facility] 09-26-2024 11:01-0500 Body mass index (BMI) [Ratio] 26.36 kg/m2 Roslyn Snowburg BAG CHECKER Work Phone: [facility] 09-26-2024 11:01-0500 Body temperature 98.49 [degF] Roslyn [place]burg BAG CHECKER Work Phone: [facility] 09-26-2024 11:01-0500 Body weight 67.5 kg Roslyn [place] BAG CHECKER Work Phone: [facility] 09-26-2024 11:01-0500 Diastolic blood pressure 80 mm[Hg] Roslyn [place] BAG CHECKER Work Phone: [facility] 09-26-2024 11:01-0500 Heart rate 73 /min Roslyn [place] BAG CHECKER Work Phone: [facility] 09-26-2024 11:01-0500 SaO2% (BldA) [Mass fraction] 95 % Roslyn [place] BAG CHECKER Work Phone: [facility] 09-26-2024 11:01-0500 Systolic blood pressure 122 mm[Hg] Roslyn [place] BAG CHECKER Work Phone: [facility] 06-22-2024 16:17-0500 Body height 160 cm Cynthia Leong MD Work Phone: [facility] 06-22-2024 16:17-0500 Body mass index (BMI) [Ratio] 25.37 kg/m2 Cynthia Leong MD Work Phone: [facility] 06-22-2024 16:17-0500 Body weight 64.95 kg Cynthia Leong MD Work Phone: [facility] 06-22-2024 16:17-0500 Diastolic blood pressure 98 mm[Hg] Cynthia Leong MD Work Phone: [facility] 06-22-2024 16:17-0500 Heart rate 80 /min Cynthia Leong MD Work Phone: [facility] 06-22-2024 16:17-0500 SaO2% (BldA) [Mass fraction] 95 % Cynthia Leong MD Work Phone: [facility] 06-22-2024 16:17-0500 Systolic blood pressure 160 mm[Hg] Cynthia Leong MD Work Phone: [facility] 05-18-2024 10:14-0400 Heart rate 74 /min Divina Castellano BAG CHECKER Work Phone: [facility] 05-18-2024 10:14-0400 SaO2% (BldA) [Mass fraction] 99 % Divina Castellano BAG CHECKER Work Phone: [facility] 05-18-2024 09:50-0400 Body mass index (BMI) [Ratio] 24.44 kg/m2 Divina Castellano BAG CHECKER Work Phone: [facility] 05-18-2024 09:50-0400 Body temperature 97.39 [degF] Divina Castellano BAG CHECKER Work Phone: [facility] 05-18-2024 09:50-0400 Body weight 64.59 kg Divina Castellano BAG CHECKER Work Phone: [facility] 05-18-2024 09:50-0400 Diastolic blood pressure 82 mm[Hg] Divina Castellano BAG CHECKER Work Phone: [facility] 05-18-2024 09:50-0400 Systolic blood pressure 138 mm[Hg] Divina Castellano BAG CHECKER Work Phone: [facility] 05-10-2023 10:45-0400 Body height 162.56 cm Ap [facility] Other [facility] Other 05-10-2023 10:45-0400 Body mass index (BMI) [Ratio] 25.4 kg/m2 Ap [facility] Other [facility] Other 05-10-2023 10:45-0400 Body weight 67.13 kg Ap [place] Other [facility] Other 05-10-2023 10:45-0400 Diastolic blood pressure 80 mm[Hg] Ap Skyler Other [facility] Other 05-10-2023 10:45-0400 Systolic blood pressure 122 mm[Hg] Ap Skyler Other [facility] Other 04-06-2023 11:15-0400 Body height 162.56 cm Ap [place] Other [facility] Other 04-06-2023 11:15-0400 Body mass index (BMI) [Ratio] 26.09 kg/m2 Ap [place] Other [facility] Other 04-06-2023 11:15-0400 Body weight 68.95 kg Ap [place] Other [facility] Other 04-06-2023 11:15-0400 Diastolic blood pressure 84 mm[Hg] Ap Skyler Other [facility] Other 04-06-2023 11:15-0400 Systolic blood pressure 124 mm[Hg] Ap Skyler Other [facility] Other 03-23-2023 11:30-0400 Body height 162.56 cm Ap [place] Other [facility] Other 03-23-2023 11:30-0400 Body mass index (BMI) [Ratio] 26.09 kg/m2 Ap [place] Other [facility] Other 03-23-2023 11:30-0400 Body weight 68.95 kg Ap [place] Other [facility] Other 03-23-2023 11:30-0400 Diastolic blood pressure 84 mm[Hg] Ap [place] Other [facility] Other 03-23-2023 11:30-0400 Systolic blood pressure 140 mm[Hg] Ap [place] Other [facility] Other 03-08-2023 09:00-0400 Body height 162.56 cm Ap [place] Other [facility] Other 03-08-2023 09:00-0400 Body mass index (BMI) [Ratio] 26.74 kg/m2 Ap [place] Other [facility] Other 03-08-2023 09:00-0400 Body weight 70.67 kg Ap [place] Other [facility] Other 03-08-2023 09:00-0400 Diastolic blood pressure 80 mm[Hg] Ap [place] Other [facility] Other 03-08-2023 09:00-0400 SaO2% (BldA) [Mass fraction] 99 % Ap [place] Other [facility] Other 03-08-2023 09:00-0400 Systolic blood pressure 130 mm[Hg] Ap [place] Other [facility] Other Encounters Encounter Date Encounter Type Care Provider Facility Start: 01-08-2025 End: 01-08-2025 Telephone encounter Cynthia Leong MD Work Phone: [facility] Start: 01-04-2025 End: 01-04-2025 Bamboo flowsheet Clarajomar Valenzuelabley [employer] [facility] Start: 01-04-2025 End: 01-04-2025 Bamboo flowsheet Clarajomar Valenzuelabley [employer] [facility] Start: 01-04-2025 End: 01-04-2025 ambulatory Clara Baly [employer] [facility] Comment on above: Lumbar [...] 12-26-2024 End: 12-26-2024 Bamboo flowsheet Clara Kelbley [employer] [facility] Start: 12-26-2024 End: 12-26-2024 Bamboo flowsheet Clara Nicolasbley [employer] [facility] Start: 12-26-2024 End: 12-26-2024 ambulatory Clara Echeverria [employer] [facility] Comment on above: Lumbar paraspinal mu scle spasm (Primary Dx); Weakness of both lower extremities; Frequent falls Start: 12-21-2024 End: 12-21-2024 Bamboo flowsheet Clara Baly [employer] [facility] Start: 12-21-2024 End: 12-21-2024 Bamboo flowsheet Clara Baly [employer] [facility] Start: 12-21-2024 End: 12-21-2024 ambulatory Clara Echeverria [employer] [facility] Comment on above: Lumbar paraspinal mu scle spasm (Primary Dx); Weakness of both lower extremities; Frequent falls Start: 12-15-2024 End: 12-15-2024 Refill Nikki Coughlin MA [facility] Comment on above: Gastroesophageal ref lux disease without esophagitis; Mixed hyperlipidemia (CMS/HCC); Essential hypertension (CMS/HCC); Acquired hypothyroidism (CMS/HCC) Start: 12-14-2024 End: 12-14-2024 Bamboo flowsheet Clara Baly [employer] [facility] Start: 12-14-2024 End: 12-14-2024 Bamboo flowsheet Clara Baly [employer] [facility] Start: 12-14-2024 End: 12-14-2024 ambulatory Clara Echeverria [employer] [facility] Comment on above: Lumbar paraspinal mu scle spasm (Primary Dx); Weakness of both lower extremities; Frequent falls Start: 12-11-2024 End: 12-11-2024 Bamboo flowsheet Clara Baly [employer] [facility] Start: 12-11-2024 End: 12-11-2024 Bamboo flowsheet Clara Baly [employer] [facility] Start: 12-11-2024 End: 12-12-2024 ambulatory Clara Baly [employer] [facility] Comment on above: Lumbar [...] 09-26-2024 End: 09-26-2024 Bamboo flowsheet Roslyn Briscoe BAG CHECKER Work Phone: [facility] Start: 09-26-2024 End: 09-26-2024 Bamboo flowsheet Roslyn Briscoe BAG CHECKER Work Phone: [facility] Start: 09-26-2024 End: 09-26-2024 Office outpatient visit 15 minutes Roslyn Briscoe BAG CHECKER Work Phone: [facility] Comment on above: Viral URI with cough (Primary Dx); Acute cough; Nasal congestion Start: 09-26-2024 End: 09-26-2024 ambulatory ROSLYN BRISCOE Not Available Start: 09-04-2024 End: 09-04-2024 Refill Libby Ward BAG CHECKER Work Phone: [facility] Comment on [...] 07-25-2024 End: 07-25-2024 Bamboo flowsheet Mariano Ghosh [employer] [facility] Start: 07-25-2024 End: 07-25-2024 Bamboo flowsheet Mariano Ghosh [employer] [facility] Start: 07-25-2024 End: 07-25-2024 ambulatory Mariano Ghosh [employer] [facility] Comment on above: Spinal stenosis, uns pecified spinal region (Primary Dx); Lumbar and sacral arthritis Start: 07-19-2024 End: 07-19-2024 ambulatory Mariano Ghosh [employer] [facility] Comment on above: Spinal stenosis, uns pecified spinal region (Primary Dx); Lumbar and sacral arthritis Start: 07-18-2024 End: 07-19-2024 ambulatory Mariano Ghosh [employer] [facility] Comment on above: Spinal stenosis, uns pecified spinal region (Primary Dx); Lumbar and sacral arthritis Start: 07-18-2024 End: 07-18-2024 Bamboo flowsheet Mariano Ghosh [employer] [facility] Start: 07-18-2024 End: 07-18-2024 Bamboo flowsheet Mariano Ghosh [employer] [facility] Start: 07-14-2024 End: 07-14-2024 Bamboo flowsheet Alana Lopez PT [facility] Start: 07-14-2024 End: 07-14-2024 Bamboo flowsheet Alana Lopez PT [facility] Start: 07-14-2024 End: 07-14-2024 ambulatory Alana Lopez PT [facility] Comment on above: Spinal stenosis, uns pecified spinal region (Primary Dx); Lumbar and sacral arthritis Start: 07-11-2024 End: 07-11-2024 ambulatory Mariano Ghosh [employer] [facility] Comment on above: Spinal stenosis, uns pecified spinal region (Primary Dx); Lumbar and sacral arthritis Start: 07-04-2024 End: 07-04-2024 ambulatory Mariano Ghosh [employer] [facility] Comment on above: Spinal stenosis, uns pecified spinal region (Primary Dx); Lumbar and sacral arthritis Start: 06-30-2024 End: 06-30-2024 ambulatory Mariano Ghosh [employer] [facility] Comment on above: Spinal [...] 06-20-2024 End: 06-20-2024 Bamboo flowsheet Marianoflavia Ghosh [employer] [facility] Start: 06-20-2024 End: 06-20-2024 Bamboo flowsheet Mariano Ghosh [employer] [facility] Start: 06-20-2024 End: 06-20-2024 ambulatory Mariano Stefano [employer] [facility] Comment on above: Spinal stenosis, uns pecified spinal region (Primary Dx); Lumbar and sacral arthritis Start: 06-16-2024 End: 06-16-2024 Bamboo flowsheet Mariano Ghosh [employer] [facility] Start: 06-16-2024 End: 06-16-2024 Bamboo flowsheet Mariano Stefano [employer] [facility] Start: 06-16-2024 End: 06-16-2024 ambulatory Mariano Stefano [employer] [facility] Comment on above: Spinal stenosis, uns pecified spinal region (Primary Dx); Lumbar and sacral arthritis Start: 06-14-2024 End: 06-14-2024 Bamboo flowsheet Mariano Ghosh [employer] [facility] Start: 06-14-2024 End: 06-14-2024 Bamboo flowsheet Mariano Ghosh [employer] [facility] Start: 06-14-2024 End: 06-14-2024 ambulatory Mariano Ghosh [employer] [facility] Comment on above: Spinal stenosis, uns pecified spinal region (Primary Dx); Lumbar and sacral arthritis Start: 06-13-2024 End: 06-13-2024 Refill Cynthia Leong MD Work Phone: [facility] Comment on above: Essential hypertensi on (CMS/HCC) Start: 06-07-2024 End: 06-07-2024 ambulatory Mariano Ghosh [employer] [facility] Comment on above: Spinal [...] 05-22-2024 End: 05-22-2024 Orders Only Libby Ward BAG CHECKER Work Phone: [facility] Comment on above: Acute cystitis witho ut hematuria (Primary Dx) Start: 05-18-2024 End: 05-18-2024 Bamboo flowsheet Divina Castellano BAG CHECKER Work Phone: [facility] Start: 05-18-2024 End: 05-18-2024 Bamboo flowsheet Divina Castellano BAG CHECKER Work Phone: [facility] Start: 05-18-2024 [...] Office outpatient visit 25 minutes Divina Castellano BAG CHECKER Work Phone: [facility] Comment on above: Vertigo (Primary Dx) ; Spinal stenosis, unspecified spinal region; Lumbar and sacral arthritis; Dysuria; Essential hypertension ([facility] Start: 05-18-2024 End: 05-18-2024 ambulatory DIVINA CASTELLANO Not Available Start: 05-17-2024 End: 05-17-2024 Refill Cynthia Leong MD Work Phone: [facility] Comment on above: Gastroesophageal ref lux disease without esophagitis Start: 05-15-2024 End: 05-15-2024 ambulatory Kulwant García MD Facility:[facility] Start: 04-17-2024 End: 04-17-2024 ambulatory Kulwant [...] Start: 10-08-2023 End: 10-08-2023 ambulatory Charles Hendricks Facility:[facility] Start: 09-27-2023 End: 09-27-2023 ambulatory Kulwant García MD Facility: [facility] Start: 09-13-2023 End: 09-13-2023 ambulatory Kulwant García MD Facility: [facility] Start: 05-10-2023 Office outpatient vi sit 25 minutes Ap [facility] Start: 05-10-2023 End: 05-10-2023 ambulatory Ap Holland Facility:[facility] Start: 05-10-2023 End: 05-10-2023 ambulatory BAG CHECKER-C Roslyn Briscoe Work Phone: [facility] Work Phone: Start: 05-10-2023 End: 05-10-2023 Patient encounter procedure BAG CHECKER-C Roslyn Briscoe Work Phone: [facility] Work Phone: Start: 04-29-2023 (PROC) PROCEDURE Ap Hart [facility] Start: 04-29-2023 End: 04-29-2023 ambulatory Ap [place] Other [facility] Other Start: 04-06-2023 End: 04-06-2023 ambulatory Ap [place] Other [facility] Other Start: 04-06-2023 Office outpatient vi sit 25 minutes Ap Skyler [facility] Start: 03-23-2023 End: 03-23-2023 ambulatory Ap [place] Other [facility] Other Start: 03-23-2023 Office outpatient vi sit 15 minutes Ap Skyler [facility] Start: 03-16-2023 (PROC) PROCEDURE Apkalin Hart [facility] Start: 03-16-2023 End: 03-16-2023 ambulatory Ap [place] Other [facility] Other Start: 03-09-2023 End: 03-09-2023 ambulatory Ap [place] Other [facility] Other Start: 03-09-2023 Telephone encounter Ap [facility] Start: 03-08-2023 End: 03-08-2023 ambulatory Ap [place] Other [facility] Other Start: 03-08-2023 Office consultation new/estab patient 60 min Ap Skyler [facility] Procedures Date Procedure Procedure Detail Performing Clinician Start: 09-26-2024 STATUS COVID-19/FLU Pat jaspal Briscoe BAG CHECKER Work Phone: Start: 06-22-2024 Complete blood count with white cell differential, automated Cynthia Leong MD Work Phone: Start: 06-22-2024 Comprehensive metabo lic panel Cynthia Leong MD Work Phone: Start: 06-22-2024 Lipid panel Cynthia castaneda MD Work Phone: Start: 06-22-2024 TSH W/REFLEX TO FT4 Swathi Leong MD Work Phone: Start: 05-18-2024 Urnls dip stick/tabl et rgnt non-auto w/o micrscp Divina Castellano BAG CHECKER Work Phone: Start: 05-10-2023 Plain X-ray of right hip BAG CHECKER-C Roslyn Briscoe Work Phone: Plan of Treatment Date Care Activity Detail Author Start: 2025 Medicare Annual Well ness (AWV) Medicare Annual Wellness (AWV) [facility] Start: 04-09-2025 Influenza vaccination Influenz a Vaccine (Season Ended) [facility] Start: 02-01-2025 End: 02-01-2025 ambulatory 02/01/2025 11:30 AM EDT Treatment [facility] [address] [facility] [address] [place] [address] Clara Echeverria, [employer] [facility] Start: 01-29-2025 End: 01-29-2025 ambulatory 01/29/2025 11:00 AM EDT Treatment [facility] [address] [place] [address] [place] [address] Shiva Agarwal, PT [address] [place] [address] [facility] Start: 01-25-2025 End: 01-25-2025 ambulatory 01/25/2025 11:30 AM EDT Treatment [facility] [address] [place] [address] [place] [address] Hill Saunders, [employer] [facility] Start: 01-22-2025 End: 01-22-2025 ambulatory 01/22/2025 10:30 AM EDT Treatment [facility] [address] [place] [address] [place] [address] Clara Echeverria, [employer] [facility] Start: 01-18-2025 End: 01-18-2025 ambulatory 01/18/2025 11:30 AM EDT Treatment [facility] [address] [place] [address] [place] [address] Hill Saunders, [employer] [facility] Start: 01-15-2025 End: 01-15-2025 ambulatory 01/15/2025 10:30 AM EDT Treatment [facility] [address] [place] [address] [place] [address] Clara Echeverria, [employer] [facility] Start: 01-11-2025 End: 01-11-2025 ambulatory 01/11/2025 10:30 AM EDT Treatment [facility] [address] [place] [address] [place] [address] Shiva Agarwal, PT [address] [place] [address] [facility] Start: 01-08-2025 End: 01-08-2025 ambulatory 01/08/2025 1:30 PM EDT Treatment [facility] [address] [place] [address] [place] [address] Clara Echeverria, [employer] [facility] Start: 01-04-2025 End: 01-04-2025 ambulatory [facility] Comment on above: Arrived Start: 2024 End: 2024 Patient encounter procedure 2024 10:00 AM EDT Office Visit [facility] [address] [place] [id number] Cynthia Leong MD [address] [place] [address] [facility] Start: 12-28-2024 End: 12-28-2024 ambulatory 12/28/2024 11:30 AM EDT Treatment [facility] [address] [place] [place] [address] Clara Echeverria, [employer] [facility] Start: 12-26-2024 End: 12-26-2024 ambulatory 12/26/2024 10:00 AM EDT Treatment [facility] [address] [place] [address] [place] [address] Judith Echeverriaissa, [employer] Lumbar paraspinal muscle spasm (Primary Dx); Weakness [...] [facility] [address] [facility] [address] [place] [address] Shiva Agarwal, PT [address] [facility] [address] [place] [address] [facility] Start: 12-14-2024 End: 12-14-2024 ambulatory [facility] Comment on above: Arrived Start: 12-11-2024 End: 12-11-2024 ambulatory [facility] Comment on above: Arrived Start: 12-07-2024 End: 12-07-2024 ambulatory 12/07/2024 2:00 PM EDT Evaluation [facility] [address] [facility] [address] [place] [address] Shiva Agarwal, PT [address] [facility] [address] [place] [address] Arrived [facility] Comment on above: Arrived Start: 10-06-2024 End: 10-06-2024 Patient encounter procedure 10/06/2024 2:40 PM EST Office Visit [facility] [address] [facility] [phone] Cynthia Leong MD [address] [facility] [place] [address] Arrived [facility] Comment [...] EST Office Visit [facility] [address] [place] [address] Roslyn Briscoe NP [address] [facility] [place], [place] [id number] Arrived [facility] Comment on above: Arrived Start: 08-03-2024 Medicare Annual Well ness (AWV) Medicare Annual Wellness (AWV) [facility] Start: 08-03-2024 End: 08-03-2024 ambulatory 08/03/2024 12:30 PM EST Treatment [facility] [address] [place] [address] [place] [id number] Alana Lopez, PT [facility] Start: 07-31-2024 End: 07-31-2024 ambulatory 07/31/2024 12:00 PM EST Treatment [facility] [address] [place] [address] [place] [address] Mariano Ghosh, [employer] [facility] Start: 07-28-2024 End: 07-28-2024 ambulatory 07/28/2024 1:00 PM EST Treatment [facility] [address] [place] [address] [place] [address] Alana Lopez, PT Arrived [facility] Comment on above: Arrived Start: 07-27-2024 End: 07-27-2024 ambulatory [facility] Start: 07-25-2024 End: 07-25-2024 ambulatory [facility] Comment on above: Arrived Start: 07-19-2024 End: 07-19-2024 ambulatory 07/19/2024 1:00 PM EST Treatment [facility] [address] [facility] [address] [place] [address] Mariano Ghosh, [employer] [facility] Start: 07-18-2024 End: 07-18-2024 ambulatory 07/18/2024 4:00 PM EST Treatment [facility] [address] [place] [address] [place] [address] Mariano Ghsoh, [employer] Arrived [facility] Comment on above: Arrived Start: 07-17-2024 End: 07-17-2024 ambulatory 07/17/2024 12:30 PM EST Treatment [facility] [address] [place] [address] [place] [address] Mariano Ghosh, [employer] [facility] Start: 07-14-2024 End: 07-14-2024 ambulatory [facility] Comment on above: Arrived Start: 07-11-2024 End: 07-11-2024 ambulatory 07/11/2024 12:30 PM EST Treatment [facility] [address] [place] [address] [place] [address] Mariano Ghosh, [employer] [facility] Start: 07-04-2024 End: 07-04-2024 ambulatory 07/04/2024 12:30 PM EST Treatment [facility] [address] [facility] [address] [place] [address] Mariano Ghosh, [employer] [facility] Start: 06-30-2024 End: 06-30-2024 ambulatory 06/30/2024 12:00 PM EST Treatment [facility] [address] [facility] [address] [place] [address] Mariano Ghosh, [employer] [facility] Start: 06-23-2024 End: 06-23-2024 ambulatory 06/23/2024 10:30 AM EST Treatment [facility] [address] [facility] [address] [place] [address] Alana Lopez, PT [facility] Start: 06-22-2024 End: 06-22-2024 Patient encounter procedure 06/22/2024 2:30 PM EST Office Visit [facility] [address] [facility] [place] [address] Cynthia Leong MD [address] [facility] [place] [address] [facility] Start: 06-20-2024 End: 06-20-2024 ambulatory 06/20/2024 2:00 PM EST Treatment [facility] [address] [facility] [address] [place] [address] Mariano Ghosh, [employer] [facility] Start: 06-16-2024 End: 06-16-2024 ambulatory [facility] Comment on above: Arrived Start: 06-14-2024 End: 06-14-2024 ambulatory 06/14/2024 12:30 PM EST Treatment [facility] [address] [facility] [address] [place] [address] Mariano Ghosh, [employer] [facility] Start: 06-07-2024 End: 06-07-2024 ambulatory 06/07/2024 2:30 PM EDT Treatment [facility] [address] [facility] [address] [place] [address] Mariano Ghosh, [employer] [facility] Start: 06-05-2024 End: 06-05-2024 [...] 04-09-2024 Influenza vaccination Influenza Vacc ine (#1) [facility] Bacteria identified in Urine by Culture Urine culture Microbiology Routine Dysuria Ordered: 05/18/2024 [facility] Work Phone: Comment on above: Ordered: 05/18/2024 Immunizations Immunization Date Immunization Notes Care Provider [facility] 07-08-2023 Pneumococcal Conjuga te PCV 20 Cynthia Leong MD Work Phone: [facility] 05-11-2023 influenza, high dose seasonal, preservative-free Cynthia Leong MD Work Phone: [facility] 05-11-2023 influenza virus vacc ine, unspecified formulation Cynthia Leong MD Work Phone: [facility] 06-23-2022 Influenza, High-dose Seasonal, Quadrivalent, Preservative Free Cynthia Leong MD Work Phone: [facility] 05-09-2021 Influenza, High-dose Seasonal, Quadrivalent, Preservative Free Cynthia Leong MD Work Phone: [facility] 06-21-2020 influenza, high dose seasonal, preservative-free Cynthia Leong MD Work Phone: [facility] Payers Date Payer Category Payer Private Health Insurance 2023 Self-pay 2021 Medicaid [employer] MEDICARE A DVANTAGE [id number] 2021 Medicare AETNA MEDICARE A DVANTAGE AETNA MEDICARE REPLACEMENT [id number] 2021-Present [address] [place] [address] [id number] 2021 Medicare [id number] 2.16.840.1.430832.19 1943 Unknown [id number] 2.16.840.1.117869.3.579.2. 1943 Unknown [id number] 2.16.840.1.908137.3.579.2. 1943 Unknown [id number] 2.16.840.1.920233.3.579.2. 1943 Unknown [id number] 2.16.840.1.928517.3.579.2. 1943 Unknown [id number] 2.16.840.1.203298.3.579.2. 1943 Unknown [id number] 2.16.840.1.596920.3.579.2. 1258 1943 Unknown [id number] 2.16.840.1.801831.3.579.2. 1258 1943 Unknown [id number] 2.16.840.1.071014.3.579.2. 1258 1943 Unknown [id number] 2.16.840.1.860568.3.579.2. 125 1943 Unknown [id number] 2.16.840.1.990771.3.579.2. 1258 1943 Unknown [id number] 2.16.840.1.222573.3.579.2. 1258 1943 Unknown [id number] 2.16.840.1.952438.3.579.2. 1258 1943 Unknown [id number] 2.16.840.1.949469.3.579.2. 1258 1943 Unknown [id number] 2.16.840.1.729055.3.579.2. 1258 1943 Unknown [id number] 2.16.840.1.995165.3.579.2. 1258 1943 Unknown [id number] 2.16840.1.167606.3.579.2. 1258 1943 Unknown [id number] 2.16.840.1.130938.3.579.2. 1258 1943 Unknown [id number] 2.16.840.1.325792.3.579.2. 1258 1943 Unknown [id number] 2.16.840.1.060532.3.579.2. 1258 1943 Unknown [id number] 2.16.840.1.486413.3.579.2. 1258 1943 Unknown [id number] 2.16.840.1.544280.3.579.2. 1258 1943 Unknown [id number] 2.16.840.1.701534.3.579.2. 1258 1943 Unknown [id number] 2.16.840.1.856551.3.579.2. 1258 1943 Unknown [id number] 2.16.840.1.781805.3.579.2. 1258 1943 Unknown [id number] 2.16.840.1.379295.3.579.2. 1258 1943 Unknown [id number] 2.16.840.1.129160.3.579.2. 1258 1943 Unknown [id number] 2.16.840.1.013937.3.579.2. 1258 1943 Unknown [id number] 2.16.840.1.614107.3.579.2. 1258 1943 Unknown [id number] 2.16.840.1.767642.3.579.2. 1258 1943 Unknown [id number] 2.16.840.1.466358.3.579.2. 1258 1943 Unknown [id number] 2.16.840.1.411121.3.579.2. 1258 1943 Unknown [id number] 2.16.840.1.860116.3.579.2. 1258 1943 Unknown [id number] 2.16.840.1.139770.3.579.2. 1258 1943 Unknown [id number] 2.16.840.1.610121.3.579.2. 1258 1943 Unknown [id number] 2.16840.1.089014.3.579.2. 1258 1943 Unknown [id number] 2.16.840.1.949943.3.579.2. 1258 1943 Unknown [id number] 2.16.840.1.742534.3.579.2. 1258 1943 Unknown [id number] 2.16.840.1.340662.3.579.2. 1258 1943 Unknown [id number] 2.16.840.1.145373.3.579.2. 1258 1943 Unknown [id number] 2.16.840.1.140215.3.579.2. 1259 1943 Unknown [id number] 2.16.840.1.521417.3.579.2. 9 1943 Unknown [id number] 2.16.840.1.407270.3.579.2. 9 1943 Unknown [id number] 2.16.840.1.851254.3.579.2. 1258 1943 Unknown [id number] 2.16.840.1.981346.3.579.2. 1259 Medicare [id number] 2.16.840.1.153617.19 Unknown [id number] 2.16.840.1.162906.3.579.2. 531 Unknown [id number] 2.16.840.1.525237.3.579.2. 531 Social History Date Type Detail Facility Start: 09-02-2023 End: 2024 Sex Assigned At [facility] Other Start: 1945 Sex Assigned At Female F [facility] Start: 02-05-2023 Tobacco smoking stat [facility] Never smoked tobacco [facility] Work [...] Gender identity Identifies as female gender (finding) [facility] Start: 09-26-2024 Alcohol Comment Caffeine intak e : 1-2 cups/day coffee [facility] Clinical Notes 03-08-2023 to 01-08-2025 Telephone Encounter - Cynthia Leong MD - 01/08/2025 1:47 PM EDTTelephone Encounter - Cynthia Leong MD - 01/08/2025 1:47 PM EDTTelephone Encounter - Kari Braswell - 01/08/2025 8:07 AM EDT Note Date & Type Note Facility 01-08-2025 Telephone encount er Note Was [facility] able to add on the immunofixation? [facility] 01-08-2025 Miscellaneous Notes Formattin g of this note might be different from the original. Was [facility] able to add on the immunofixation? documented in this encounter [facility] 01-08-2025 Telephone encount er Note Fyi-- Good morning, this is Nanette Car calling. I am the daughter of Yvonne Liz. Her birthday is . She fell on Wednesday and broke her wrist. I just wanted to let Dr Washington know if we could put that note in her record. She will be seeing Dr Hendricks, the orthopedic Today at [facility], where they will set it and cast it, just wanted to put that information in the file. And we will follow up with Dr. Washington after we see Dr. Hendricks in orthopedic day. If you need to reach me, I can be found at [phone] again Nanette Car, daughter of Yvonne Liz, [id number]. Thank you so much. Have a great day. Fernanda victor. [facility] 01-08-2025 Miscellaneous Notes Formattin g of [...] seeing Dr Hendricks, the orthopedic Today at [facility], where they will set it and cast it, just wanted to put that information in the file. And we will follow up with Dr. Washington after we see Dr. Hendricks in orthopedic day. If you need to reach me, I can be found at [phone] again Nanette Car, daughter of Yvonne Liz, [phone]. Thank you so much. Have a great day. Fernanda victor. documented in this encounter [facility] 01-02-2025 History of Presen t illness [...] to be instructed in home exercise program. Manager Immunology Goals: To be met in 10 weeks [...] sign below. Date: documented in this encounter [facility] 12-15-2024 Miscellaneous Notes Formattin g of this note might be different from the original. Refills sent. Pharmacy and dosage correct documented in this encounter [facility] 12-15-2024 Telephone encount er Note Refills sent. [facility] 12-15-2024 Telephone encount er Note Pharmacy and dosage correct [facility] 12-07-2024 History of Presen t illness [...] to be instructed in home exercise program. Intermediate Goals: To be met in 10 weeks [...] sign below. Date: documented in this encounter [facility] 10-06-2024 History of Presen t illness [...] infections. The prescription will be sent to [facility]. 2. Falls. The patient reports multiple [...] are still low, further evaluation by a goat farmer may be considered. She has previously refused [...] Other pancytopenia (CMS/HCC) documented in this encounter [facility] 09-27-2024 Telephone encount er Note Dominique called - she was in yesterday w Shilpi but is asking for an Antibiotic to be called in. She said she feels miserable . Dominique - if you could call and let her know either way, ty [phone] [facility] 09-27-2024 Miscellaneous Notes Formattin g of this note might be different from the original. Dominique called - she was in yesterday w Shilpi but is asking for an Antibiotic to be called in. She said she feels miserable . Dominique - if you could call and let her know either way, ty [phone] documented in this encounter [facility] 09-26-2024 History of Presen t illness [...] associated with rest 12/01/2018 Decreased platelet count ([facility]) 01/01/2023 Essential hypertension ([facility]) 10/15/2016 Gastro-esophageal reflux disease without esophagitis 11/24/2017 GERD (gastroesophageal reflux disease) Hypertension ([facility]) Hyperthyroidism ([facility]) Hypothyroid ([facility]) Hypothyroidism, unspecified ([facility]) 05/11/2016 Lumbar and sacral arthritis 01/01/2023 Mixed hyperlipidemia ([facility]) 10/15/2016 Nocturnal leg cramps 01/01/2023 Orthostatic [...] HIP SURGERY Right 10/07/2023 Fx fixed @ [facility] PARTIAL HYSTERECTOMY 1982 REVIEW OF SYMPTOMS: [...] maintain hydration, ensure adequate rest, and use mxnv-[id number] analgesics such as Tylenol or Motrin as needed. She may continue with DayQuil and is also recommended to consider Mucinex. A prescription for Mucinex will be sent to [facility]. If there is no improvement in her condition by Wednesday, she should inform us. No follow-ups on file. documented in this encounter [facility] 09-04-2024 Telephone encount er Note Refills sent. [facility] 09-04-2024 Miscellaneous Notes Formattin g of this note might be different from the original. Refills sent. documented in this encounter [facility] 09-04-2024 Telephone encount er Note Refills sent. [facility] 09-04-2024 Miscellaneous Notes Formattin g of this note might be different from the original. Refills sent. documented in this encounter [facility] 08-03-2024 History of Presen t illness [...] instructed in home exercise program. - met Intermediate Goals: To be met in 10 weeks [...] 07-31-2024 Telephone encount er Note Refills sent. [facility] 07-31-2024 Miscellaneous Notes Formattin g of this note might be different from the original. Refills sent. documented in this encounter [facility] 07-28-2024 History of Presen t illness [...] to be instructed in home exercise program. Manager Immunology Goals: To be met in 10 weeks [...] sign below. 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 Manager Immunology Goals: To be met in 10 weeks [...] sign below. Date: documented in this encounter [facility] 06-27-2024 History of Presen t illness [...] to be instructed in home exercise program. Intermediate Goals: To be met in 10 weeks [...] sign below. Date: documented in this encounter [facility] 06-23-2024 History of Presen t illness [...] to be instructed in home exercise program. Intermediate Goals: To be met in 10 weeks [...] sign below. Date: documented in this encounter [facility] 06-22-2024 History of Presen t illness [...] new medication will be sent to [facility] and should be taken once daily with [...] CBC and differential documented in this encounter [facility] 06-20-2024 History of Presen t illness [...] to be instructed in home exercise program. Intermediate Goals: To be met in 10 weeks [...] 1:09 PM EST documented in this encounter [facility] 06-13-2024 Telephone encount er Note Approving, but needs appt for additional refills. [facility] 06-13-2024 Miscellaneous Notes Formattin g of [...] pt. Thank you. documented in this encounter [facility] 06-13-2024 Telephone encount er Note 180/70 sometimes 160/70 definitely happening more frequently than family would like. Scheduling an appt for the next wk [facility] 06-13-2024 Telephone encount er Note Patient is calling for refill of metoprolol [facility] [place] When her b/p is high do you want her to take more of this medication? Please advise pt. Thank you. [facility] 06-07-2024 Telephone encount er Note Nanette Fox's daughter Kellie is having a lot of pain and needing to get in ter[place], *I can call if needed , ty [facility] [phone] [facility] 06-07-2024 Miscellaneous Notes Formattin g of [...] *I can call if needed , ty [facility] [phone] documented in this encounter [facility] 05-29-2024 History of Presen t illness [...] or 3 Meclizine yesterday, none today. Precautions: [place], falls Subjective: Pt states she continues with [...] instructed in home exercise program. - MET Intermediate Goals: To be met in 10 weeks [...] PT this date. documented in this encounter [facility] 05-18-2024 Telephone encount er Note Patient daughter- Nanette is calling today re: referral. Nanette called PT and they can address one issue at a time. Is the vertigo more important that the spinal stenosis and arthritis at this time? Please advise Nanette which one you would like addressed first so she can call and get this scheduled. Nanette [phone]. Thank you. [facility] 05-18-2024 Miscellaneous Notes Formattin g of [...] can call and get this scheduled. Nanette [phone]. Thank you. documented in this encounter [facility] 05-18-2024 History of Presen t illness [...] with rest 12/01/2018 Decreased platelet count ([facility]) 01/01/2023 Essential hypertension (CMS/HCC) 10/15/2016 Gastro-esophageal reflux [...] Next scheduled follow-up. documented in this encounter [facility] 05-10-2023 Evaluation note Encounter Date Diagnosis [...] up in 1 week for further evaluation. [facility] Other 08-29-2023 Evaluation note* Encounter Date Diagnosis [...] (ICD-10 - G89.29) Proceed with treatment plan. [facility] 08-15-2023 Evaluation note* Encounter Date Diagnosis [...] (ICD-10 - G89.29) Follow up as needed [facility] 07-31-2023 Evaluation note* Encounter Date Diagnosis [...] negative findings were considered in medical decision-making. [email or web address] Other Evaluation noteNo Information[facility]ortWell[facility] Other Evaluation noteNo assessment information available [facility] Work Phone: Evaluation note* Diagnosis [...] Date Medical History hypercholestolemia Medical History stenosis [facility] Other Reason for visit Narrative* Rehabilitation - Outpatient (Routine) - Authorized Specialty Diagnoses / Procedures Referred By Contac t Referred To Contact Physical Therapy Diagnoses Vertigo Spinal stenosis, unspecified spinal region Lumbar and sacral arthritis Procedures NE OFFICE/OUTPATIENT [facility] 60 MINUTES Divina Castellano, BAG CHECKER [address] [place] [address] Phone: tel: fax: Alana Lopez PT Referral ID Status Reason Start Date Expiration Date Visits Requested Visits Authorized [id number] Authorized Specialty Services Required 11/14/2024 99 99 [facility] N[facility]* Rehabilitation - Outpatient (Routine) - Authorized Specialty Diagnoses / Procedures Referred By Contac t Referred To Contact Physical Therapy Diagnoses Spinal stenosis, unspecified spinal region Lumbar and sacral arthritis Procedures NE OFFICE/OUTPATIENT NEW HIGH MDM 60 MINUTES Divina Castellano, BAG CHECKER [address] [place] [address] Phone: tel: fax: Alana Lopez, PT Referral ID Status Reason Start Date Expiration Date Visits Requested Visits Authorized [id number] Authorized Specialty Services Required 05/14/2025 1 90 [facility] for [facility] Narrative* Rehabilitation - Outpatient (Routine) - Authorized Specialty Diagnoses / Procedures Referred By Contac t Referred To Contact Physical Therapy Diagnoses Spinal stenosis, unspecified spinal region Lumbar and sacral arthritis Procedures NE OFFICE/OUTPATIENT NEW HIGH MDM 60 MINUTES Divina Castellano, BAG CHECKER [address] [place] [address] Phone: tel: fax: Alana Lopez, PT Referral ID Status Reason Start Date Expiration Date Visits Requested Visits Authorized [id number] Authorized Specialty Services Required 08/08/2024 1 90 [facility] for [facility] Narrative* Rehabilitation - Outpatient (Routine) - Closed Specialty Diagnoses / Procedures Referred By Contac t Referred To Contact Physical Therapy Diagnoses Spinal stenosis, unspecified spinal region Lumbar and sacral arthritis Procedures NE OFFICE/OUTPATIENT NEW HIGH MDM 60 MINUTES Divina Castellano, BAG CHECKER [address] [place] [address] Phone: tel: fax: Alana Lopez, PT Referral ID Status Reason Start Date Expiration Date V isits Requested Visits Authorized [id number] Closed Specialty Services Required 06/05/2024 08/08/2024 1 90 [facility] Narrative* Rehabilitation - Outpatient (Routine) - Authorized Specialty Diagnoses / Procedures Referred By Contac t Referred To Contact Physical Therapy Diagnoses Spinal stenosis, lumbar region with neurogenic claudication Procedures NE PHYSICAL THERAPY EVALUATION LOW COMPLEX 20 MINS NE OFFICE/OUTPATIENT NEW HIGH MDM 60 MINUTES Kulwant García MD [address] [place] [address] Phone: tel: fax: Shiva Agarwal, PT 112 [facility] [address] [place] [address] Phone: tel: fax: Referral ID Status Reason Start Date Expiration Date V isits Requested Visits Authorized [id number] Authorized 12/01/2024 05/30/2025 99 99 [facility]Reason for visit Narrative* Rehabilitation - Outpatient (Routine) - Authorized Specialty Diagnoses / Procedures Referred By Suni conde Referred To Contact Physical Therapy Diagnoses Spinal stenosis, lumbar region with neurogenic claudication Procedures NE PHYSICAL THERAPY EVALUATION LOW COMPLEX 20 MINS NE OFFICE/OUTPATIENT NEW HIGH MDM 60 MINUTES Kulwant García MD [address] [place] [address] Phone: tel: fax: Shiva Agarwal, PT [address] [address] Phone: tel: fax: Referral ID Status Reason Start Date Expiration Date V isits Requested Visits Authorized [id number] Authorized 12/01/2024 08/08/2025 99 99 [facility] [...] spinal region Lumbar and sacral arthritis Procedures NE OFFICE/OUTPATIENT NEW HIGH MDM 60 MINUTES Divina Castellano, BAG CHECKER [address] [place] [address] Alana Lopez, PT Referral ID Status Reason Start Date Expiration Date Visits Requested Visits Authorized [id number] Authorized Specialty Services Required 11/14/2024 99 99 Additional Source Comments INFORMATION SOURCE (unrecogn ized section and content) DATE CREATED AUTHOR 12/11/2022 [facility] DATE CREATED AUTHOR AUTHOR'S ORGANIZ ATION 10/19/2023 [facility] DATE CREATED AUTHOR AUTHOR'S ORGANIZ ATION 05/24/2024 [facility] DATE CREATED AUTHOR AUTHOR'S ORGANIZ ATION 01/06/2025 [facility] dical Specialists EPIC REASON FOR VISIT (unrecogniz [...] e Ap Holland MD Attending Provider Active Mushroom Spawn Maker Relationship Specialty Start Date End Date Cynthia Leong MD [address] [place] [address] PCP - [employer] 08/09/20 Cynthia Leong MD [address] [facility] [place] [address] PCP - General Family Medicine 01/18/24 Libby Ward NP [address] [place] [address] Nurse Practitioner Family Medicine 02/05/23 Mushroom Spawn Maker Relationship Specialty Start Date End Date Cynthia Leong MD [address] [place] [address] PCP - [employer] 08/09/20 Cynthia Leong MD [address] [place] [address] PCP - General Family Medicine 01/18/24 Libby Ward NP [address] [place] [address] Nurse Practitioner Family Medicine 02/05/23 Mushroom Spawn Maker Relationship Specialty Start Date End Date Cynthia Leong MD [address] [place] [address] PCP - [employer] 08/09/20 Cynthia Leong MD [address] [place] [address] PCP - General Family Medicine 01/18/24 Libby Ward NP [address] [place] [address] Nurse Practitioner Family Medicine 02/05/23 Mushroom Spawn Maker Relationship Specialty Start Date End Date Cynthia Leong MD [address] [place] [address] PCP - [employer] 08/09/20 Cynthia Leong MD [address] [place] [address] PCP - General Family Medicine 01/18/24 Libby Ward NP [address] [place] [address] Nurse Practitioner Family Medicine 02/05/23 Mushroom Spawn Maker Relationship Specialty Start Date End Date Cynthia Leong MD [address] [place] [address] PCP - [employer] 08/09/20 Cynthia Leong MD [address] [place] [address] PCP - General Family Medicine 01/18/24 Libby Ward NP [address] [place] [address] Nurse Practitioner Family Medicine 02/05/23 Mushroom Spawn Maker Relationship Specialty Start Date End Date Cynthia Leong MD [address] [place] [address] PCP - [employer] 08/09/20 Cynthia Leong MD [address] [place] [address] PCP - General Family Medicine 01/18/24 Libby Ward NP [address] [place] [address] Nurse Practitioner Family Medicine 02/05/23 Mushroom Spawn Maker Relationship Specialty Start Date End Date Cynthia Leong MD [address] [place] [address] PCP - [employer] 08/09/20 Cynthia Leong MD [address] [place] [address] PCP - General Family Medicine 01/18/24 Libby Ward NP [address] [place] [address] Nurse Practitioner Family Medicine 02/05/23 Mushroom Spawn Maker Relationship Specialty Start Date End Date Cynthia Leong MD [address] [place] [address] PCP - [employer] 08/09/20 Cynthia Leong MD [address] [place] [address] PCP - General Family Medicine 01/18/24 Libby Ward NP [address] [place] [address] Nurse Practitioner Family Medicine 02/05/23 Mushroom Spawn Maker Relationship Specialty Start Date End Date Cynthia Leong MD [address] [place] [address] PCP - [employer] 08/09/20 Cynthia Leong MD [address] [place] [address] PCP - General Family Medicine 01/18/24 Libby Ward NP [address] [place] [address] Nurse Practitioner Family Medicine 02/05/23 Mushroom Spawn Maker Relationship Specialty Start Date End Date Cynthia Leong MD [address] [place] [address] PCP - [employer] 08/09/20 Cynthia Leong MD [address] [place] [address] PCP - General Family Medicine 01/18/24 Libby Ward NP [address] [place] [address] Nurse Practitioner Family Medicine 02/05/23 Mushroom Spawn Maker Relationship Specialty Start Date End Date Cynthia Leong MD [address] [place] [address] PCP - [employer] 08/09/20 Cynthia Leong MD [address] [place] [address] PCP - General Family Medicine 01/18/24 Libby Ward NP [address] [place] [address] Nurse Practitioner Family Medicine 02/05/23 Mushroom Spawn Maker Relationship Specialty Start Date End Date Cynthia Leong MD [address] [place] [address] PCP - [employer] 08/09/20 Cynthia Leong MD [address] [place] [address] PCP - General Family Medicine 01/18/24 Libby Ward NP [address] [place] [address] Nurse Practitioner Family Medicine 02/05/23 Mushroom Spawn Maker Relationship Specialty Start Date End Date Cynthia Leong MD [address] [place] [address] PCP - [employer] 08/09/20 Cynthia Leong MD [address] [place] [address] PCP - General Family Medicine 01/18/24 Libby Ward NP [address] [place] [address] Nurse Practitioner Family Medicine 02/05/23 Mushroom Spawn Maker Relationship Specialty Start Date End Date Cynthia Leong MD [address] [place] [address] PCP - [employer] 08/09/20 Cynthia Leong MD [address] [place] [address] PCP - General Family Medicine 01/18/24 Libby Ward NP [address] [place] [address] Nurse Practitioner Family Medicine 02/05/23 Mushroom Spawn Maker Relationship Specialty Start Date End Date Cynthia Leong MD [address] [place] [address] PCP - [employer] 08/09/20 Cynthia Leong MD [address] [place] [address] PCP - General Family Medicine 01/18/24 Libby Ward NP [address] [place] [address] Nurse Practitioner Family Medicine 02/05/23 Mushroom Spawn Maker Relationship Specialty Start Date End Date Cynthia Leong MD [address] [place] [address] PCP - [employer] 08/09/20 Cynthia Leong MD [address] [place] [address] PCP - General Family Medicine 01/18/24 Libby Ward NP [address] [place] [address] Nurse Practitioner Family Medicine 02/05/23 Mushroom Spawn Maker Relationship Specialty Start Date End Date Cynthia Leong MD [address] [place] [address] PCP - [employer] 08/09/20 Cynthia Leong MD [address] [place] [address] PCP - General Family Medicine 01/18/24 Libby Ward NP [address] [place] [address] Nurse Practitioner Family Medicine 02/05/23 Mushroom Spawn Maker Relationship Specialty Start Date End Date Cynthia Leong MD [address] [place] [address] PCP - [employer] 08/09/20 Cynthia Leong MD [address] [place] [address] PCP - General Family Medicine 01/18/24 Libby Ward NP [address] [place] [address] Nurse Practitioner Family Medicine 02/05/23 Mushroom Spawn Maker Relationship Specialty Start Date End Date Cynthia Leong MD [address] [place] [address] PCP - [employer] 08/09/20 Cynthia Leong MD [address] [place] [address] PCP - General Family Medicine 01/18/24 Libby Ward NP [address] [place] [address] Nurse Practitioner Family Medicine 02/05/23 Mushroom Spawn Maker Relationship Specialty Start Date End Date Cynthia Leong MD [address] [place] [address] PCP - [employer] 08/09/20 Cynthia Leong MD [address] [place] [address] PCP - General Family Medicine 01/18/24 Libby Ward NP [address] [place] [address] Nurse Practitioner Family Medicine 02/05/23 Mushroom Spawn Maker Relationship Specialty Start Date End Date Cynthia Leong MD [address] [place] [address] PCP - [employer] 08/09/20 Cynthia Leong MD [address] [place] [address] PCP - General Family Medicine 01/18/24 Libby Ward, BAG CHECKER [address] [place] [address] Nurse Practitioner Family Medicine 02/05/23 Mushroom Spawn Maker Relationship Specialty Start Date End Date Cynthia Leong MD [address] [place] [address] PCP - [employer] 08/09/20 Cynthia Leong MD [address] [place] [address] PCP - General Family Medicine 01/18/24 Libby Ward NP [address] [place] [address] Nurse Practitioner Family Medicine 02/05/23 Mushroom Spawn Maker Relationship Specialty Start Date End Date Cynthia Leong MD [address] [place] [address] PCP - [employer] 08/09/20 Cynthia Leong MD [address] [place] [address] PCP - General Family Medicine 01/18/24 Libby Ward, BAG CHECKER [address] [place] [address] Nurse Practitioner Family Medicine 02/05/23 Mushroom Spawn Maker Relationship Specialty Start Date End Date Cynthia Leong MD [address] [place] [address] PCP - [employer] 08/09/20 Cynthia Leong MD [address] [place] [address] PCP - General Family Medicine 01/18/24 Libby Ward NP [address] [place] [address] Nurse Practitioner Family Medicine 02/05/23 Mushroom Spawn Maker Relationship Specialty Start Date End Date Cynthia Leong MD [address] [place] [address] PCP - [employer] 08/09/20 Cynthia Leong MD [address] [place] [address] PCP - General Family Medicine 01/18/24 Libby Ward NP [address] [place] [address] Nurse Practitioner Family Medicine 02/05/23 Mushroom Spawn Maker Relationship Specialty Start Date End Date Cynthia Leong MD [address] [place] [address] PCP - [employer] 08/09/20 Cynthia Leong MD [address] [place] [address] PCP - General Family Medicine 01/18/24 Libby Ward NP [address] [place] [address] Nurse Practitioner Family Medicine 02/05/23 Mushroom Spawn Maker Relationship Specialty Start Date End Date Cynthia Leong MD [address] [place] [address] PCP - [employer] 08/09/20 Cynthia Leong MD [address] [place] [address] PCP - General Family Medicine 01/18/24 Libby Ward NP [address] [place] [address] Nurse Practitioner Family Medicine 02/05/23 Mushroom Spawn Maker Relationship Specialty Start Date End Date Cynthia Leong MD [address] [place] [address] PCP - [employer] 08/09/20 Cynthia Leong MD [address] [place] [address] PCP - General Family Medicine 01/18/24 Libby Ward NP [address] [place] [address] Nurse Practitioner Family Medicine 02/05/23 Mushroom Spawn Maker Relationship Specialty Start Date End Date Cynthia Leong MD [address] [place] [address] PCP - [employer] 08/09/20 Cynthia Leong MD [address] [place] [address] PCP - General Family Medicine 01/18/24 Libby Ward NP [address] [place] [address] Nurse Practitioner Family Medicine 02/05/23 Goals (unrecognized [...] BE BASED ON THE PRIMARY CLINICAL RECORDS. [facility] [facility]. provides no warranty or guarantee of the accuracy or completeness of information in this document.
--- OUTSIDE RECORDS SUMMARY | 2025-01-12 07:48 | XMS_ITS | Clinical Summary ---
Author Organization [facility] Address [address] [place] [address] Care Team Providers Care Harness Repairer Name Role Phone Cynthia Hernandez MD Unavailable [phone] Libby Ward NP Unavailable Cynthia Hernandez MD Primary Care Provider [phone] Allergies Active Allergy Reactions Criticality Noted Date [...] Department Care Team Description 01/08/2025 Telephone [facility] [place] [id number] [facility] [place] [address] Cynthia Hernandez MD 01/08/2025 Telephone [facility] [place] [address] [facility] [place] [address] Cynthia Hernandez MD 01/08/2025 Telephone [facility] [address] [facility] [address] [place] [address] Clara Echeverria, FIRE ALARM MECHANIC Broken wrist 01/07/2025 Abstract [facility] [address] [facility] [place] [address] Cynthia Hernandez MD 01/05/2025 Results Follow-Up [facility] [address] [facility] [place] [address] Cynthia Hernandez MD 01/04/2025 12:00 PM EDT Treatment [facility] [address] [place] [address] [place] [address] Clara Echeverria, FIRE ALARM MECHANIC Lumbar paraspinal muscle spasm (Primary Dx); Weakness of both lower extremities 01/04/2025 Bamboo flowsheet [facility] [address] [place] [address] [place] [address] Clara Echeverria, FIRE ALARM MECHANIC 01/04/2025 Travel 01/02/2025 11:30 AM EDT Treatment [facility] [address] [place] [address] [place] [address] Mayur Agarwal, PT Lumbar paraspinal muscle spasm (Primary Dx); Weakness of both lower extremities; Frequent falls 01/02/2025 Bamboo flowsheet [facility] [address] [facility] [address] [place] [address] Mayur Agarwal, PT 01/02/2025 Travel 2024 10:00 AM EDT Office Visit [facility] [address] [place] [id number] Cynthia Hernandez MD Peripheral polyneuropathy (Primary Dx); Wellness examination; Herpes simplex; Essential hypertension (CMS/HCC); Mixed hyperlipidemia (CMS/HCC); Acquired hypothyroidism (CMS/HCC); Spinal stenosis of lumbar region, unspecified whether neurogenic claudication present 2024 Travel 12/28/2024 11:30 AM EDT Treatment [facility] [address] [facility] [address] [place] [address] Kelbley, Clara, FIRE ALARM MECHANIC Lumbar paraspinal muscle spasm (Primary Dx); Weakness of both lower extremities 12/28/2024 Bamboo flowsheet [facility] [address] [facility] [address] [place] [address] Kelbley, Clara, FIRE ALARM MECHANIC 12/28/2024 Travel 12/26/2024 10:00 AM EDT Treatment [facility] [address] [facility] [address] [place] [address] Kelbley, Clara, FIRE ALARM MECHANIC Lumbar paraspinal muscle spasm (Primary Dx); Weakness of both lower extremities; Frequent falls 12/26/2024 Bamboo flowsheet [facility] [address] [facility] [address] [place] [address] Kelbley, Clara, FIRE ALARM MECHANIC 12/26/2024 Travel 12/21/2024 11:30 AM EDT Treatment [facility] [address] [facility] [address] [place] [address] Kelbley, Clara, FIRE ALARM MECHANIC Lumbar paraspinal muscle spasm (Primary Dx); Weakness of both lower extremities; Frequent falls 12/21/2024 Bamboo flowsheet [facility] [address] [facility] [address] [place] [address] Kelbley, Clara, FIRE ALARM MECHANIC 12/21/2024 Travel 12/15/2024 Refill [facility] [address] [facility] [place] [address] Nikki Coughlin MA Gastroesophageal reflux disease without esophagitis; Mixed hyperlipidemia ([facility]); Essential hypertension ([facility]); Acquired hypothyroidism ([facility]) 12/14/2024 11:00 AM EDT Treatment [facility] [address] [place] [address] [place] [address] Clara Echeverria, FIRE ALARM MECHANIC Lumbar paraspinal muscle spasm (Primary Dx); Weakness of both lower extremities; Frequent falls 12/14/2024 Bamboo flowsheet [facility] [address] [place] [address] [place] [address] Clara Echeverria, FIRE ALARM MECHANIC 12/14/2024 Travel 12/11/2024 12:00 PM EDT Treatment [facility] [address] [place] [address] [place] [address] Clara Echeverria, FIRE ALARM MECHANIC Lumbar paraspinal muscle spasm (Primary Dx); Weakness of both lower extremities; Frequent falls 12/11/2024 Refill [facility] [address] [facility] [place] [address] Cynthia Hernandez MD Essential hypertension ([facility]) 12/11/2024 Bamboo flowsheet [facility] [address] [facility] [address] [place] [address] Judith Echeverriaissa, FIRE ALARM MECHANIC 12/11/2024 Travel 12/10/2024 Telephone [facility] [address] [place] [address] Ly Prasad MA 12/07/2024 2:00 PM EDT Evaluation [facility] [address] [place] [address] [place] [address] Mayur Agarwal, PT Lumbar paraspinal muscle spasm (Primary Dx); Weakness of both lower extremities; Frequent falls 12/07/2024 Plan of Care Documentation [facility] [address] [place] [address] [place] [address] 12/07/2024 Refill [facility] [address] [facility] [place] [address] Cynthia Hernandez MD Essential hypertension ([facility]) 12/07/2024 Bamboo flowsheet [facility] [address] [facility] [address] [place] [address] Mayur Agarwal, PT 12/07/2024 Travel 12/01/2024 Refill [facility] [address] [place] [address] Cynthia Hernandez MD Acquired hypothyroidism ([facility]) 11/30/2024 Abstract [facility] [address] [facility] [place] [address] Cynthia Hernandez MD 10/23/2024 Telephone [facility] [address] [place] [address] Sindy Lucero MA from Last 3 Months [...] IMMUNOFIXAT ION, SERUM [facility] TEST CODE: [address] [place] [address] CLIENT CONTACT: DEAN QURESHI [facility] REPORT ALWAYS MESSAGE SIGNATURE [facility] Comment: The laboratory testing on this patient was verbally requested or confirmed by the ordering physician or his or her authorized technical services representative after contact with an employee of [email or web address]. Federal regulations require that we maintain on file written authorization for all laboratory testing. Accordingly we are asking that the ordering physician or his or her authorized technical services representative sign a copy of this report and promptly return it to the client services representative. Signature: COMMENT [facility] Comment: Please have the ordering physician or his or her authorized technical services representative sign a copy of this report and promptly return it by faxing it to: [phone] or by returning the form to your machine setter and repairer. 2024 10:4 1 AM EDT 2024 10:43 AM EDT Narrative [facility] - 01/10/2025 11:20 AM EDT MULTIPLE TESTING PRIORITIES; ROUTINE TESTING TO FOLLOW. Resulting Agency Comment Performing Organization Information Site ID: QPT Name: [email or web address] [facility] Address: [address] [place] [address], [address] [place] [address] Director: Juan Alberto Harrell MD us Cynthia Hernandez MD LAB BLOOD ORDERABLES Final Re sult Performing Organization Address [facility] de [...] AC-1: Homogeneous International Consensus on JOANIE Patterns (https://doi.org/10.1515/owrs-7175-0020) 2024 10:4 1 AM EDT 2024 10:43 AM EDT Narrative [facility] - 01/10/2025 11:20 AM EDT MULTIPLE TESTING PRIORITIES; ROUTINE TESTING TO FOLLOW. Resulting Agency Comment Performing Organization Information Site ID: QPT Name: [email or web address] [facility] Address: [address] [place] [address], [address] [place] [phone] Director: Juan Alberto Harrell MD us Cynthia Hernandez MD LAB BLOOD ORDERABLES Final Re sult Performing Organization Address [facility] Co de Phone Number [facility] * TSH W/REFLEX TO FT4 (2024 10:41 AM EDT) TSH W/REFLEX TO FT4 1.61 0.40 - 4.50 mIU/L [facility] 2024 10:4 1 AM EDT 2024 10:43 AM EDT Narrative [facility] - 01/10/2025 11:20 AM EDT MULTIPLE TESTING PRIORITIES; ROUTINE TESTING TO FOLLOW. Resulting Agency Comment Performing Organization Information Site ID: QPT Name: [email or web address] [facility] Address: [address], [address] [place] [address] Director: Juan Alberto Harrell MD Cynthia Hernandez [...] neural tube defects and intrauterine growth restriction. [email or web address] utilized Multi-Modal Decomposition (MMD) analysis to establish first and second trimester-specific MMA reference intervals in , as given below: MMA, First trimester (<13 wks gestation): 58-167 nmol/L MMA, Second trimester (13-23 wks gestation): 63-241 nmol/L Note 1 This test was developed and its analytical performance characteristics have been determined by [email or web address]. It has not been cleared or approved [...] Performing Organization Information Site ID: QPT Name: [email or web address] [facility] Address: [address], [address] [place] [address] Director: Juan Alberto Harrell MD Cynthia Hernandez MD LAB BLOOD ORDERABLES Final Re sult [facility] * Hepatitis panel, acute (2024 10:41 AM EDT) HEPATITIS A IGM NON-REACTI VE NON-REACT ASAEL [facility] Comment: For additional information, please refer to http://IntraStage/faq/QBB912 (This link is being provided for informational/ educational purposes only.) HEPATITIS B SURFACE ANTIGEN NON-REACTI VE NON-REACT ASAEL [facility] Comment: For additional information, please refer to http://IntraStage/faq/REJ993 (This link is being provided for informational/ educational purposes only.) HEPATITIS B CORE ANTIBODY (IGM) NON-REACTI VE NON-REACT ASAEL [facility] Comment: For additional information, please refer to http://IntraStage/faq/IXP721 (This link is being provided for informational/ educational purposes only.) HEPATITIS C ANTIBODY NON-REACTI VE NON-REACT ASAEL [facility] Comment: HCV antibody was non-reactive. There is no laboratory evidence of HCV infection. In most cases, no further action is required. However, if recent HCV exposure is suspected, a test for HCV RNA (test code 65429) is suggested. For additional information please refer to http://IntraStage/faq/CZO26d1 (This link is being provided for informational/ educational purposes only.) Blood Venous blood specimen / Unknown 2024 10:41 AM EDT 2024 10:43 AM EDT Narrative [facility] - 01/10/2025 11:20 AM EDT MULTIPLE TESTING PRIORITIES; ROUTINE TESTING TO FOLLOW. Resulting Agency Comment Performing Organization Information Site ID: QPT Name: [email or web address] [facility] Address: [address] [place] [address], [address] [place] [phone] Director: Juan Alberto Harrell MD us Cynthia [...] Performing Organization Information Site ID: QPT Name: [email or web address] [facility] Address: [address] [place] [address], [address] [place] [address] Director: Jaun Alberto Harrell MD Cynthia Hernandez MD LAB BLOOD ORDERABLES Final Re sult Performing Organization Address [facility] de Phone Number [facility] * Immunofixation electrophoresis (2024 10:41 AM EDT) Pathologist [facility] SWATI INTERPRETATION [facility] Comment:IgG lambda monoclona l band present. 2024 10:4 1 AM EDT 2024 10:43 AM EDT Narrative [facility] - 01/10/2025 11:20 AM EDT MULTIPLE TESTING PRIORITIES; ROUTINE TESTING TO FOLLOW. Resulting Agency Comment Performing Organization Information Site ID: QPT Name: [email or web address] [facility] Address: [address] [place] [address], [address] [place] [address] Director: Juan Alberto Harrell MD Cynthia Hernandez MD LAB BLOOD ORDERABLES Final Re sult Performing Organization Address [facility] de Phone Number [facility] * (ABNORMAL) JOANIE (2024 10:41 AM EDT) Pathologist [facility] JOANIE SCREEN, IFA POSITIVE( A) NEGATIVE [facility] Comment: JOANIE IFA is a first line screen for detecting the presence of up to approximately 150 autoantibodies in various autoimmune diseases. A positive JOANIE IFA result is suggestive of autoimmune disease and reflexes to titer and pattern. Further laboratory testing may be considered if clinically indicated. For additional information, please refer to http://education.[employer] [place]/faq/TXW543 (This link is being provided for informational/ educational purposes only.) Blood Venous blood specimen / Unknown 2024 10:41 AM EDT 2024 10:43 AM EDT Narrative [facility] - 01/10/2025 11:20 AM EDT MULTIPLE TESTING PRIORITIES; ROUTINE TESTING TO FOLLOW. Resulting Agency Comment Performing Organization Information Site ID: QPT Name: [email or web address] [facility] Address: [address] [place] [address], [address] [place] [address] Director: Juan Alberto Harrell MD us Cynthia [...] Performing Organization Information Site ID: QPT Name: [email or web address] [facility] Address: [address] [place] [address], [address] [place] [address] Director: Juan Alberto Harrell MD us Cynthia Hernandez MD LAB BLOOD ORDERABLES Final Re sult Performing Organization Address [facility] de Phone Number [facility] * Vitamin B12 [...] Performing Organization Information Site ID: QPT Name: [email or web address] [facility] Address: [address] [place] [address], [address] [place] [address] Director: Juan Alberto Harrell MD us Cynthia Hernandez MD LAB BLOOD ORDERABLES Final Re sult Performing Organization Address [facility] de Phone Number [facility] from Last 3 Months Insurance [employer] MED[employer]ARE [employer]VANTAGE Care Teams Harness Repairer Relationship Specialty Start Date End Date Cynthia Hernandez MD [address] [facility] [place] [address] PCP - Aet 08/09/20 Cynthia Hernandez MD [address] [facility] [place] [address] PCP - General Family Medicine 01/18/24 Libby Ward NP [address] [facility] [place] [address] Nurse Practitioner Family Medicine 02/05/23
--- OUTSIDE RECORDS SUMMARY | 2025-01-12 07:48 | XMS_ITS | Encounter Summary ---
Author Organization [facility] Address [address] [facility] [place] [address] Care Team Providers Care Cook Pie Name Role Phone Cynthia Hernandez MD Unavailable [phone] Cynthia Hernandez MD Primary Care Provider Libby Ward NP Unavailable [phone] Mariam Glasgow MD Primary Care Provider Cynthia Hernandez MD Primary Care Provider [phone] Encounter Details Date Type Department Care Team (Late st Contact Info) Description 01/01/2023 Orders Only [facility] [address] [place] [address] Shital Briscoe INDUSTRIAL MAINTENANCE INSTRUCTOR [address] [place], [place] [id number] Social History Tobacco Use Types Packs/Day Years [...] on filedocumented in this encounter Care Teams Cook Pie Relationship Specialty Start Date End Date Cynthia Hernandez MD [address] [place], [place] [id number] PCP - Aetna 08/09/20 Cynthia Hernandez MD [address] [facility] [place], [place] [address] PCP - General Family Medicine 02/05/23 12/28/23 Mariam Glasgow MD [address] [place] [address] PCP - General Geriatric Medicine 12/29/23 01/17/24 Cynthia Hernandez MD [address] [place], [place] [address] PCP - General Family Medicine 01/18/24 Libby Ward NP [address] [place], [place] [address] Nurse Practitioner Family Medicine 02/05/23 documented as of this encounter
--- OUTSIDE RECORDS SUMMARY | 2025-01-12 07:48 | XMS_ITS | Encounter Summary ---
Author Organization [facility] Address [address] [place] [address] Care Team Providers Care Physiotherapy Assistant Name Role Phone Cynthia Hernandez MD Unavailable Cynthia Hernandez MD Primary Care Provider Libby Ward NP Unavailable [phone] Mariam Glasgow MD Primary Care Provider Cynthia Hernandez MD Primary Care Provider Encounter Details Date Type Department Care Team (Late st Contact Info) Description 11/10/2023 Abstract [facility] [address] [place] [address] Shital Briscoe ENTRY LEVEL ELECTRICAL ENGINEER [address] [place] [address] Social History Tobacco Use Types [...] documented as of this encounter Care Teams Physiotherapy Assistant Relationship Specialty Start Date End Date Cynthia Hernandez MD [address] [facility] [place] [address] PCP - Aetna 08/09/20 Cynthia Hernandez MD [address] [facility] [place] [address] PCP - General Family Medicine 02/05/23 12/28/23 Mariam Glasgow MD [address] [place] [address] PCP - General Geriatric Medicine 12/29/23 01/17/24 Cynthia Hernandez MD [address] [facility] [place] [address] PCP - General Family Medicine 01/18/24 Libby Ward NP [address] [place] [address] Nurse Practitioner Family Medicine 02/05/23 documented as of this encounter
--- OUTSIDE RECORDS SUMMARY | 2025-01-12 07:48 | XMS_ITS | Encounter Summary ---
Author Organization [facility] Address [address] [place] [address] Care Team Providers Care Baseball Coach Name Role Phone Cynthia Leong MD Unavailable [phone] Cynthia Leong MD Primary Care Provider [phone] Libby Ward NP Unavailable [phone] Mariam Glasgow MD Primary Care Provider Cynthia Leong MD Primary Care Provider [phone] Encounter Details Date Type Department Care Team [...] AM EDT Narrative 10/26/2023 8:21 [place] [address] XRay Report Signed Patient: YVONNE LIZ MR#: [id number] : 1945 Acct:[id number] Age/Sex: 77 / F ADM Date: 10/25/23 Loc: EC Attending Dr: Charles Garrido M.D. Ordering Physician: Charles Garrido M.D. Date of Service: 10/25/23 Procedure(s): XR hip RT 2V w/ pelvis Accession Number(s): [id number] cc: Charles Garrido M.D.; CYNTHIA LEONG [place] [address] Patient Name: YVONNE LIZ MRN: [id number] date: 1945 Sex: F Assigned Patient Location: Current Patient Location: Accession/Order Number: [id number] Exam Date: 10/25/2023 11:11 Report Date: 10/26/2023 [...] M.D. Signed By: 10/26/23820 DD/ 7 TD/TT: Channel Rebuilder: Procedure Note Radiology, Radiologist, MD - 10/26/2023 [place] [address] XRay Report Signed Patient: RODRIGUEZ LIZR#: [id number] : 1945cct:[id number] Age/Sex: 77 / FADM Date: 10/25/23 Loc: EC Attending Dr: Charles Garrido M.D. Ordering Physician: Charles Garrido M.D. Date of Service: 10/25/23 Procedure(s): XR hip RT 2V w/ pelvis Accession Number(s): [id number] cc: Charles Garrido M.D.; CYNTHIA LEONG [place] [address] Patient Name: YVONNE LIZ MRN: [id number] date: 1945 Sex: F Assigned Patient Location: Current Patient Location: Accession/Order Number: [id number] Exam Date: 10/25/2023 11:11 Report Date: 10/26/2023 [...] Esteban M.D. Signed By:10/26/2321 DD/ 7 TD/TT: Channel Rebuilder: Generic External Data Provider IMG XR PROCEDURES Final Result documented in this encounter Visit Diagnoses Not on filedocumented in this encounter Additional Health Concerns Assessment Noted Time PHQ-9 Depression Total Score: 12 024 2:11 PM EST documented as of this encounter Care Teams Baseball Coach Relationship Specialty Start Date End Date yCnthia Leong MD [address] [facility] [place] [address] PCP - Aetna 08/09/20 Cynthia Leong MD [address] [facility] [place] [address] PCP - General Family Medicine 02/05/23 12/28/23 Mariam Glasgow MD [address] [place] [address] PCP - General Geriatric Medicine 12/29/23 01/17/24 Cynthia Leong MD [address] [facility] [place] [address] PCP - General Family Medicine 01/18/24 Libby Ward NP [address] [facility] [place] [address] Nurse Practitioner Family Medicine 02/05/23 documented as of this encounter
--- OUTSIDE RECORDS SUMMARY | 2025-01-12 07:48 | XMS_ITS | Encounter Summary ---
Author Organization [facility] Address [address] [place] [address] Care Team Providers Care Upper Lining Cementer Name Role Phone Cynthia Hernandez MD Unavailable [phone] Libby Ward NP Unavailable [phone] Cynthia Hernandez MD Primary Care Provider [phone] Encounter Details Date Type Department Care Team (Late st Contact Info) Description 01/07/2025 Abstract [facility] [address] [place] [address] Cynthia Hernandez MD [address] [place] [address] Social History Tobacco Use Types [...] documented as of this encounter Care Teams Upper Lining Cementer Relationship Specialty Start Date End Date Cynthia Hernandez MD [address] [place] [address] PCP - Aetna 08/09/20 Cynthia Hernandez MD [address] [place] [address] PCP - General Family Medicine 01/18/24 Libby Ward NP [address] [place] [address] Nurse Practitioner Family Medicine 02/05/23 documented as of this encounter
--- OUTSIDE RECORDS SUMMARY | 2025-01-12 07:48 | XMS_ITS | Encounter Summary ---
Author Organization [facility] Address [address] [facility] [place] [address] Care Team Providers Care Welding Machine Operator Plasma Arc Name Role Phone Cynthia Hernandez MD Unavailable [phone] Cynthia Hernandez MD Primary Care Provider Libby Ward NP Unavailable [phone] Mariam Glasgow MD Primary Care Provider Cynthia Hernandez MD Primary Care Provider [phone] Encounter Details Date Type Department Care Team (Late st Contact Info) Description 10/10/2023 Abstract [facility] [address] [place] [address] Cynthia Hernandez MD [address] [place] [address] Social History Tobacco Use Types [...] documented as of this encounter Care Teams Welding Machine Operator Plasma Arc Relationship Specialty Start Date End Date Cynthia Hernandez MD [address] [facility] [place] [address] PCP - Aet 08/09/20 Cynthia Hernandez MD [address] [facility] [place] [address] PCP - General Family Medicine 02/05/23 12/28/23 Mariam Glasgow MD [address] [place] [address] PCP - General Geriatric Medicine 12/29/23 01/17/24 Cynthia Hernandez MD [address] [facility] [place] [address] PCP - General Family Medicine 01/18/24 Libby Ward NP [address] [place] [address] Nurse Practitioner Family Medicine 02/05/23 documented as of this encounter
--- OUTSIDE RECORDS SUMMARY | 2025-01-12 07:48 | XMS_ITS | Patient Health Record ---
Author Organization [facility] Address [address] [place] [address] Care Team Providers Care Testing Tech Name Role Phone Charles Hendricks Unavailable [phone] Results Component Value Reference Range Notes SCC- HAND 3 VIEW RIGHT [id number] Reviewed date:01/09/2025 09:43:21 AM Interpretation: Performing Lab: [...] Status W/U Status Risk Notes Problem Vertigo (082342159) Vertigo (R42) Active confirmed Problem Closed fracture of neck of femur (663189345) Closed fracture of neck of right femur, initial encounter (S72.001A) Active confirmed Problem Fall () Fall, initial encounter (W19.XXXA) Active confirmed Vital Signs Height 5'4 in 01/08/2025 Weight 133 lbs 01/08/2025 BMI 22.83 01/08/2025 Encounters Encounter Location Date Provider Diagnosis [facility] [address] [place] [address] [place] [address] 01/08/2025 Charles Hendricks Right hand pain M79.641 [...] Name:Charles Neely and, 01/15/2025 09:00:00 AM, [address] [facility], [address], [place], [address], Insurance Providers Payer Name Payer Address Payer Phone Subscriber Number Group Number Insured Name Patient Relationship to Insured Coverage Start Date Coverage End Date Medicare Aetna [address] [place] [address] [id number] DEXTER MCCARTHY Self - patient is the insured Medical (General) History Medical History History ICD Code Hypothyroidism High Blood Pressure Surgical History Surgery Date(Month/Year) hip replacement 10/2023
--- OUTSIDE RECORDS SUMMARY | 2025-01-12 07:48 | XMS_ITS | Encounter Summary ---
Author Organization [facility] Address [address] [place] [address] Care Team Providers Care Stone Breaker Name Role Phone Cynthia Hernandez MD Unavailable [phone] Libby Ward NP Unavailable [phone] Cynthia Hernandez MD Primary Care Provider [phone] Encounter Details Date Type Department Care Team [...] documented as of this encounter Care Teams Stone Breaker Relationship Specialty Start Date End Date Cynthia Hernandez MD [address] [place], [place] [id number] PCP - Aet[employer] 08/09/20 Cynthia Hernandez MD [address] [place] [address] PCP - General Family Medicine 01/18/24 Libby Ward NP [address] [place], [place] [address] Nurse Practitioner Family Medicine 02/05/23 documented as of this encounter
--- OUTSIDE RECORDS SUMMARY | 2025-01-12 07:48 | XMS_ITS | Encounter Summary ---
Author Organization [facility] Address [address] [place] [address] Care Team Providers Care Aoc Aadc Operations Staff Officer Name Role Phone Cynthia Hernandez MD Unavailable [phone] Libby Ward NP Unavailable [phone] Cynthia Hernandez MD Primary Care Provider [phone] Encounter Details Date Type Department Care Team (Late st Contact Info) Description 01/02/2025 Bamboo flowsheet [facility] [address] [place] [address] Mayur Agarwal, PT [address] [place] [address] Social History Tobacco Use Types Packs/Day Years [...] documented as of this encounter Care Teams Aoc Aadc Operations Staff Officer Relationship Specialty Start Date End Date Cynthia Hernandez MD [address] [place] [address] PCP - Aet 08/09/20 Cynthia Hernandez MD [address] [facility] [place] [address] PCP - General Family Medicine 01/18/24 Libby Ward NP [address] [place] [address] Nurse Practitioner Family Medicine 02/05/23 documented as of this encounter
--- OUTSIDE RECORDS SUMMARY | 2025-01-12 07:48 | XMS_ITS | Encounter Summary ---
Author Organization [facility] Address [address] [facility] [place] [address] Care Team Providers Care Spot Welder Line Name Role Phone Cynthia Hernandez MD Unavailable [phone] Libby Ward NP Unavailable [phone] Cynthia Hernandez MD Primary Care Provider [phone] Encounter Details Date Type Department Care Team (Late st Contact Info) Description 01/05/2025 Results Follow-Up [facility] [address] [place] [address] Cynthia Hernandez MD [address] [place] [address] Social History Tobacco Use Types [...] documented as of this encounter Care Teams Spot Welder Line Relationship Specialty Start Date End Date Cynthia Hernandez MD [address] [place] [address] PCP - [employer]et[employer] 08/09/20 Cynthia Hernandez MD [address] [place] [address] PCP - General Family Medicine 01/18/24 Libby Ward NP [address] [place], [place] [address] Nurse Practitioner Family Medicine 02/05/23 documented as of this encounter
--- OUTSIDE RECORDS SUMMARY | 2025-01-12 07:48 | XMS_ITS | Encounter Summary ---
Author Organization [facility] Address [address] [place] [address] Care Team Providers Care Bottler Helper Name Role Phone Cynthia Hernandez MD Unavailable Libby Ward NP Unavailable [phone] Cynthia Hernandez MD Primary Care Provider [phone] Reason for Visit * Reason Comments Med Refill Encounter Details Date Type Department Care Team (Late st Contact Info) Description 06/12/2024 Refill [facility] [address] [place] [address] Cynthia Hernandez MD [address] [place] [address] Dizziness Social History Tobacco Use [...] documented as of this encounter Care Teams Bottler Helper Relationship Specialty Start Date End Date Cynthia Hernandez MD [address] [facility] [place] [address] PCP - Aetna 08/09/20 Cynthia Hernandez MD [address] [facility] [place] [address] PCP - General Family Medicine 01/18/24 Libby Ward NP [address] [place] [address] Nurse Practitioner Family Medicine 02/05/23 documented as of this encounter
--- OUTSIDE RECORDS SUMMARY | 2025-01-12 07:48 | XMS_ITS | Encounter Summary ---
Author Organization [facility] Address [address] [place] [address] Care Team Providers Care Capacitor Inspector Name Role Phone Cynthia Hernandez MD Unavailable [phone] Cynthia Hernandez MD Primary Care Provider Libby Ward NP Unavailable [phone] Mariam Glasgow MD Primary Care Provider Cynthia Hernandez MD Primary Care Provider [phone] Encounter Details Date Type Department Care Team (Late st Contact Info) Description 10/20/2023 Abstract [facility] [address] [place] [address] Bk Brown MD [address] [facility] [address] [place], [place] [id number] Social History Tobacco Use Types Packs/Day Years [...] documented as of this encounter Care Teams Capacitor Inspector Relationship Specialty Start Date End Date Cynthia Hernandez MD [address] [facility] [place] [address] PCP - Aet 08/09/20 Cynthia Hernandez MD [address] [facility] [place] [address] PCP - General Family Medicine 02/05/23 12/28/23 Mariam Glasgow MD [address] [place] [address] PCP - General Geriatric Medicine 12/29/23 01/17/24 Cynthia Hernandez MD [address] [facility] [place] [address] PCP - General Family Medicine 01/18/24 Libby Ward NP [address] [place] [address] Nurse Practitioner Family Medicine 02/05/23 documented as of this encounter
--- OUTSIDE RECORDS SUMMARY | 2025-01-12 07:48 | XMS_ITS | Encounter Summary ---
Author Organization [facility] Address [address] [place] [address] Care Team Providers Care Sheep Sticker Name Role Phone Cynthia Hernandez MD Unavailable [phone] Libby Ward NP Unavailable [phone] Cynthia Hernandez MD Primary Care Provider [phone] Encounter Details Date Type Department Care Team [...] documented as of this encounter Care Teams Sheep Sticker Relationship Specialty Start Date End Date Cynthia Hernandez MD [address] [place] [address] PCP - Aetna 08/09/20 Cynthia Hernandez MD [address] [facility] [place] [address] PCP - General Family Medicine 01/18/24 Libby Ward NP [address] [facility] [place] [address] Nurse Practitioner Family Medicine 02/05/23 documented as of this encounter
--- OUTSIDE RECORDS SUMMARY | 2025-01-12 07:48 | XMS_ITS | Encounter Summary ---
Author Organization [facility] Address [address] [facility] [place] [address] Care Team Providers Care Discharge Specialist Name Role Phone Cynthia Hernandez MD Unavailable Cynthia Hernandez MD Primary Care Provider Libby Ward NP Unavailable [phone] Mariam Glasgow MD Primary Care Provider Cynthia Hernandez MD Primary Care Provider Encounter Details Date Type Department Care Team (Late st Contact Info) Description 10/10/2023 Orders Only [facility] [address] [place] [address] Cynthia Hernandez MD [address] [place] [address] Social History Tobacco Use [...] documented as of this encounter Care Teams Discharge Specialist Relationship Specialty Start Date End Date Cynthia Hernandez MD [address] [facility] [place] [address] PCP - Aet 08/09/20 Cynthia Hernandez MD [address] [facility] [place] [address] PCP - General Family Medicine 02/05/23 12/28/23 Mariam Glasgow MD [address] [place] [address] PCP - General Geriatric Medicine 12/29/23 01/17/24 Cynthia Hernandez MD [address] [facility] [place] [address] PCP - General Family Medicine 01/18/24 Libby Ward NP [address] [place] [address] Nurse Practitioner Family Medicine 02/05/23 documented as of this encounter
--- OUTSIDE RECORDS SUMMARY | 2025-01-12 07:48 | XMS_ITS | Encounter Summary ---
Author Organization [facility] Address [address] [place] [address] Care Team Providers Care Centrifugal Wax Molder Name Role Phone Cynthia Hernandez MD Unavailable [phone] Libby Ward NP Unavailable Mariam Glasgow MD Primary Care Provider Cynthia Hernandez MD Primary Care Provider [phone] Encounter Details Date Type Department Care Team (Late st Contact Info) Description 01/06/2024 Orders Only [facility] [address] [place] [address] Mariam Glasgow MD [address] [place] [address] Social History Tobacco Use Types [...] documented as of this encounter Care Teams Centrifugal Wax Molder Relationship Specialty Start Date End Date Cynthia Hernandez MD [address] [facility] [address] [place], [place] [address] PCP - Aetna 08/09/20 Mariam Glasgow MD [address] [place] [address] PCP - General Geriatric Medicine 12/29/23 01/17/24 Cynthia Hernandez MD [address] [facility] [place] [address] PCP - General Family Medicine 01/18/24 Libby Ward NP [address] [facility] [place] [address] Nurse Practitioner Family Medicine 02/05/23 documented as of this encounter
--- OUTSIDE RECORDS SUMMARY | 2025-01-12 07:49 | XMS_ITS | Encounter Summary ---
Author Organization [facility] Address [address] [place] [address] Care Team Providers Care Lever Tender Name Role Phone Cynthia Hernandez MD Unavailable [phone] Libby Ward NP Unavailable [phone] Cynthia Hernandez MD Primary Care Provider [phone] Encounter Details Date Type Department Care Team (Late st Contact Info) Description 11/30/2024 Abstract [facility] [address] [place] [address] Cynthia Hernandez MD [address] [place] [address] Social History Tobacco Use Types [...] documented as of this encounter Care Teams Lever Tender Relationship Specialty Start Date End Date Cynthia Hernandez MD [address] [facility] [place] [address] PCP - Aetna 08/09/20 Cynthia Hernandez MD [address] [facility] [place] [address] PCP - General Family Medicine 01/18/24 Libby Ward NP [address] [facility] [place] [address] Nurse Practitioner Family Medicine 02/05/23 documented as of this encounter
--- OUTSIDE RECORDS SUMMARY | 2025-01-12 07:49 | XMS_ITS | Encounter Summary ---
Author Organization [facility] Address [address] [place] [address] Care Team Providers Care Memorial Designer Name Role Phone Cynthia Hernandez MD Unavailable [phone] Libby Ward NP Unavailable [phone] Cynthia Hernandez MD Primary Care Provider [phone] Encounter Details Date Type Department Care Team (Late st Contact Info) Description 01/08/2025 Telephone [facility] [address] [place] [address] Cynthia Hernandez MD [address] [place] [address] Social History Tobacco Use Types [...] documented as of this encounter Care Teams Memorial Designer Relationship Specialty Start Date End Date Cynthia Hernandez MD [address] [facility] [place] [address] PCP - Aetna 08/09/20 Cynthia Hernandez MD [address] [facility] [place] [address] PCP - General Family Medicine 01/18/24 Libby Ward NP [address] [facility] [place] [address] Nurse Practitioner Family Medicine 02/05/23 documented as of this encounter
--- OUTSIDE RECORDS SUMMARY | 2025-01-12 07:49 | XMS_ITS | Encounter Summary ---
Author Organization [facility] Address [address] [facility] [place] [address] Care Team Providers Care Mat Tester Name Role Phone Cynthia Hernandez MD Unavailable Cynthia Hernandez MD Primary Care Provider [phone] Libby Ward NP Unavailable [phone] Mariam Glasgow MD Primary Care Provider Cynthia Hernandez MD Primary Care Provider [phone] Encounter Details Date Type Department Care Team (Late st Contact Info) Description 03/01/2023 Abstract [facility] [address] [place] [id number] Sarah Gomes NP Social History Tobacco Use [...] on filedocumented in this encounter Care Teams Mat Tester Relationship Specialty Start Date End Date Cynthia Hernandez MD [address] [facility] [place] [address] PCP - Aetna 08/09/20 Cynthia Hernandez MD [address] [facility] [place] [address] PCP - General Family Medicine 02/05/23 12/28/23 Mariam Glasgow MD [address] [place] [address] PCP - General Geriatric Medicine 12/29/23 01/17/24 Cynthia Hernandez MD [address] [facility] [place] [address] PCP - General Family Medicine 01/18/24 Libby Ward NP [address] [facility] [place], [place] [address] Nurse Practitioner Family Medicine 02/05/23 documented as of this encounter
--- OUTSIDE RECORDS SUMMARY | 2025-01-12 07:49 | XMS_ITS | Encounter Summary ---
Author Organization [facility] Address [address] [place] [address] Care Team Providers Care Grants Officer Name Role Phone Cynthia Hernandez MD Unavailable [phone] Libby Ward NP Unavailable Cynthia Hernandez MD Primary Care Provider [phone] Encounter Details Date Type Department Care Team (Late st Contact Info) Description 01/08/2025 Telephone [facility] [address] [place] [address] Cynthia Hernandez MD [address] [place] [address] Social History Tobacco Use Types [...] Car calling. I am the daughter of vYonne Liz. Her birthday is . She fell on Wednesday and broke her wrist. I just wanted to let Dr Washington know if we could put that note in her record. She will be seeing Dr Hendricks, the orthopedic Today at [facility], where they will set it and cast it, just wanted to put that information in the file. And we will follow up with Dr. Washington after we see Dr. Hendricks in orthopedic day. If you need to reach me, I can be found at [phone] again Nanette Car, daughter of Yvonne Liz, [...] documented as of this encounter Care Teams Grants Officer Relationship Specialty Start Date End Date Cynthia Hernandez MD [address] [place] [address] PCP - Aetna 08/09/20 Cynthia Hernandez MD [address] [place] [id number] PCP - General Family Medicine 01/18/24 Libby Ward NP [address] [place] [address] Nurse Practitioner Family Medicine 02/05/23 documented as of this encounter
--- OUTSIDE RECORDS SUMMARY | 2025-01-12 07:49 | XMS_ITS | Encounter Summary ---
Author Organization [facility] Address [address] [place] [address] Care Team Providers Care Optometry Assistant Name Role Phone Cynthia Hernandez MD Unavailable [phone] Libby Ward NP Unavailable [phone] Cynthia Hernandez MD Primary Care Provider [phone] Reason for Visit * Reason Onset Date Comments Broken wrist 01/08/2025 Encounter Details Date Type Department Care Team (Late st Contact Info) Description 01/08/2025 Telephone [facility] [address] [place] [address] ValerianoClara snyder, NAIL TECH Broken wrist Social History Tobacco Use Types [...] 01/08/2025 8:03 AM EDT She called noting Domniique had broken wrist this weekend. She was [...] documented as of this encounter Care Teams Optometry Assistant Relationship Specialty Start Date End Date Cynthia Hernandez MD [address] [facility] [place] [address] PCP - Aetna 08/09/20 Cynthia Hernandez MD [address] [facility] [place] [address] PCP - General Family Medicine 01/18/24 Libby Ward NP [address] [place] [address] Nurse Practitioner Family Medicine 02/05/23 documented as of this encounter
--- OUTSIDE RECORDS SUMMARY | 2025-01-12 07:49 | XMS_ITS | Clinical Summary ---
Author Organization [facility] Address [address] [place] [address] Care Team Providers Care Esthetician Permanent Makeup Artist Name Role Phone Cynthia Hernandez Primary Care Provider Allergies No known active allergies Medications OMEPRAZOLE [...] Protein, Total 6.9 6.0 - 8.4 g/dL [facility] Albumin 3.9 3.5 - 5.0 g/dL [facility] Calcium 9.4 8.5 - 10.5 mg/dL [facility] Bilirubin, Total 0.3 0.0 - 1.5 mg/dL [facility] Alkaline Phosphatase 79 40 - 150 U/L [facility] AST 28 7 - 40 U/L [facility] Glucose 125(H) 65 - 100 mg/dL [facility] BUN 17 8 - 25 mg/dL [facility] Creatinine 0.92 0.70 - 1.40 mg/dL [facility] Sodium 142 132 - 148 mmol/L [facility] Potassium 3.7 3.5 - 5.0 mmol/L [facility] Chloride 106 98 - 110 mmol/L [facility] CO2 24 23 - 32 mmol/L [facility] Anion Gap 12 0 - 15 mmol/L [facility] ALT 23 0 - 45 U/L [facility] eGFR- >60 [facility] eGFR-All Other Races >60 . [facility] Comment: eGFR (Estimated GFR) Units [...] AM EDT Eze Giraldo LABORATORY Final Result [facility] [address] [place] [address] from Last 3 Months or Most Recently Relevant to Health Maintenance Insurance [employer] MEDICARE Care Teams Esthetician Permanent Makeup Artist Relationship Specialty Start Date End Date Cynthia Hernandez [address] [place] [address] PCP - General Family Medicine 12/15/13
--- NOTE | 2025-01-12 07:57 | PM.ORCN ---
History of Present Illness HPI Consult date: 01/12/25 Chief complaint: shoulder px numerous falls Narrative: Patient is a 79yr old female that had presented to the ED yesterday after a fall from standing with left shoulder pain. She had just been seen in our office Wednesday for a left angulated distal radius fracture after a fall and is going to be treated nonoperatively in a cast. Xrays taken in the ED yesterday revealed a left humeral neck and greater tuberosity fracture. Patient was placed in a sling and admitted for pain control and observation as she has hit her head twice now with her two falls recently. Orthopedics was consulted. Patient complains of left shoulder pain. She denies paresthesias to her left upper extremity. [facility] Medical History Essential (primary) hypertension ?I10 - Essential (primary) hypertension (ICD-10) Vertigo ?R42 - Dizziness and giddiness (ICD-10) Sinus arrhythmia seen on electrocardiogram ?I49.8 - Other specified cardiac arrhythmias (ICD-10) Hypothyroid ?E03.9 - Hypothyroidism, unspecified (ICD-10) Sacroiliac dysfunction ?M53.3 - Sacrococcygeal disorders, not elsewhere classified (ICD-10) Lumbar spondylosis ?M47.816 - Spondylosis without myelopathy or radiculopathy, lumbar region (ICD-10) Lumbar stenosis with neurogenic claudication ?M48.062 - Spinal stenosis, lumbar region with neurogenic claudication (ICD-10) DDD (degenerative disc disease), lumbar ?M51.36 - Other intervertebral disc degeneration, lumbar region (ICD-10) Low back pain ?M54.50 - Low back pain, unspecified (ICD-10) Irregular heartbeat ?I49.9 - Cardiac arrhythmia, unspecified (ICD-10) Acid reflux ?K21.9 - Gastro-esophageal reflux disease without esophagitis (ICD-10) Rheumatoid arthritis ?M06.9 - Rheumatoid arthritis, unspecified (ICD-10) Osteoarthritis ?M19.90 - Unspecified osteoarthritis, unspecified site (ICD-10) Hearing deficit ?H91.90 - Unspecified hearing loss, unspecified ear (ICD-10) Hypertension ?I10 - Essential (primary) hypertension (ICD-10) High cholesterol ?E78.00 - Pure hypercholesterolemia, unspecified (ICD-10) Family History (Updated 01/11/25 @ 22:27 by Patti Butler) Father Family history of hypertension Family history of stroke Mother Family history of hypertension Family history of myocardial infarction, Onset Age: 45 Social History Within the past year, how often did you have a drink containing alcohol: monthly or less Within the past year, how often did you have six or more drinks on one occasion: never Smoking status: Never smoker Non-prescribed substance use: denies use 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 Known occupational exposures/hazards: No Highest level of school completed/degree received: Master's degree Are you now , , , , never or living with a partner: In a typical week, how many times do you talk on the telephone with family, friends, or neighbors: twice per week How often do you get together with friends or relatives: twice per week How often do you attend mosque or orthodox services: 4 or more times per year Little interest or pleasure in doing things: not at all Feeling down, depressed, or hopeless: not at all Feel stressed/tense/nervous/anxious/difficulty sleeping: only a little Life stressor details: medical issues Gender Identity: female Meds Home Medications and Allergies Home Medications ?Medication ?Instructions ?Recorded ?Confirmed ?Type atorvastatin 10 mg tablet 10 mg PO DAILY 07/29/23 01/11/25 History levothyroxine 75 mcg tablet 75 mcg PO DAILY 07/29/23 01/11/25 History metoprolol succinate 25 mg 25 mg PO DAILY 07/29/23 01/11/25 History tablet,extended release 24 hr omeprazole 40 mg capsule,delayed 40 mg PO DAILY 07/29/23 01/11/25 History release acetaminophen 500 mg tablet 1,000 mg PO Q6H PRN pain 09/13/23 01/11/25 History (Tylenol Extra Strength) fluticasone propionate 50 2 spray intranasal QD #16 grams 10/12/23 01/11/25 Rx mcg/actuation nasal spray,suspension lisinopril 5 mg tablet 5 mg PO DAILY 01/07/25 01/11/25 History Allergies Allergy/AdvReac Type Severity Reaction Status Date / Time No Known Drug Allergies Allergy Verified 01/11/25 19:03 Exam Narrative Exam Narrative: On exam patient is sitting up in bed, alert and oriented, in no distress. On exam left shoulder is swollen, no ecchymosis, no erythema, tender with palpation. In a sling, short arm cast in place to the left wrist that is well fitting and in good condition. Patient able to make a full fist. Brisk capillary refill and sensation intact with light touch to all fingers and thumb. Constitutional Vital Signs, click to edit/add: Last Vital Signs Temp 97.6 F 01/12/25 04:00 Pulse 74 01/12/25 07:51 Resp 16 01/12/25 04:00 BP 164/80 H 01/12/25 04:00 Pulse Ox 96 01/12/25 04:00 O2 Del Method Room Air 01/12/25 05:39 Results Labs Labs: Abnormal lab results 01/11/25 01/11/25 01/12/25 Range/Units 20:21 21:20 05:14 RBC 3.24 L 2.85 L (4.20-5.40) 10^6/uL Hgb 11.3 L 9.8 L (12.0-16.0) g/dL Hct 30.7 L 27.3 L (36.0-48.0) % MCH 34.9 H 34.4 H (26.7-34.0) pg MCHC 36.8 H 35.9 H (29.9-35.2) g/dL Plt Count 90 L 82 L (150-450) 10^3/uL Neut % (Auto) 76.5 H (43.0-75.0) % Lymph % (Auto) 12.2 L 14.1 L (20.5-60.0) % Lymph # (Auto) 0.8 L 0.8 L (1.2-3.8) 10^3/uL Potassium 3.4 L 3.4 L (3.5-5.1) mmol/L BUN 20.0 H (7.0-18.0) mg/dL Est GFR (Non-Af Amer) 55 L (>=60 mL/min/1.73m^2) Glucose 187 H 119 H (74-106) mg/dL Magnesium 1.7 L (1.8-2.4) mg/dL ALT 12 L 13 L (14-59) U/L Total Protein 6.1 L 5.8 L (6.4-8.2) g/dL Albumin 2.9 L 2.7 L (3.4-5.0) g/dL Urine Glucose (UA) 100 A (NEGATIVE) mg/dL Urine Ketones Trace A (NEGATIVE) mg/dL Urine Urobilinogen 4.0 A (0.2-1.0) EU/dL Ur Leukocyte Esterase Trace A (NEGATIVE) Urine WBC 2-5 A (NONE SEEN) #/HPF Urine Crystals Seen A (None Seen) #/HPF Urine Bacteria Trace A (NONE SEEN) #/HPF Urine Casts Seen A (NONE SEEN) #/LPF POC Glucose (74-106) mg/dL 01/12/25 Range/Units 07:46 RBC (4.20-5.40) 10^6/uL Hgb (12.0-16.0) g/dL Hct (36.0-48.0) % MCH (26.7-34.0) pg MCHC (29.9-35.2) g/dL Plt Count (150-450) 10^3/uL Neut % (Auto) (43.0-75.0) % Lymph % (Auto) (20.5-60.0) % Lymph # (Auto) (1.2-3.8) 10^3/uL Potassium (3.5-5.1) mmol/L BUN (7.0-18.0) mg/dL Est GFR (Non-Af Amer) (>=60 mL/min/1.73m^2) Glucose (74-106) mg/dL Magnesium (1.8-2.4) mg/dL ALT (14-59) U/L Total Protein (6.4-8.2) g/dL Albumin (3.4-5.0) g/dL Urine Glucose (UA) (NEGATIVE) mg/dL Urine Ketones (NEGATIVE) mg/dL Urine Urobilinogen (0.2-1.0) EU/dL Ur Leukocyte Esterase (NEGATIVE) Urine WBC (NONE SEEN) #/HPF Urine Crystals (None Seen) #/HPF Urine Bacteria (NONE SEEN) #/HPF Urine Casts (NONE SEEN) #/LPF POC Glucose 115 H (74-106) mg/dL H & H 01/11/25 01/12/25 Range/Units 20:21 05:14 Hgb 11.3 L 9.8 L (12.0-16.0) g/dL Hct 30.7 L 27.3 L (36.0-48.0) % All other labs normal. Assessment and Plan Assessment and Plan (1) Fracture of head of humerus: Assessment and Plan: Left Humeral neck and greater tuberosity fractures - XR L Shoulder and XR L Wrist were reviewed from the ED by myself, distal radius angulation does not appear to have changed in cast - Will treat humeral fractures nonoperatively in sling - Maintain sling, do no move left arm away from body, discussed with patient - Non weight bearing to left upper extremity - Pain control - Follow up in a week with Dr Hendricks for Left Shoulder and Wrist (01/22), her scheduled appt Wednesday can be rescheduled. Plan discussed with and agreed upon by my Supervising Physician, Dr Hendricks (2) Forearm fracture:
--- NOTE | 2025-01-12 08:57 | CM.NOTE ---
Rounds made with Dr. Wise, awaiting ortho to see pt for further recommendations. PT and OT will evaluate pt for discharge planning.
[2025-01-12 09:02] LABS: INR 1.02; Partial Thromboplastin Time 22.7 sec (22.3-36.2); Prothrombin Time 10.8 sec (9.0-11.6)
[2025-01-12] MEDS: LISINOPRIL 5 MG TABLET PO (09:15)
[2025-01-12] MEDS: POTASSIUM CHLORIDE 10 MEQ ER TABLET PO ×2 (09:16→22:03)
[2025-01-12] MEDS: PANTOPRAZOLE SODIUM 40 MG TABLET.DR PO (09:16)
[2025-01-12] MEDS: MAGNESIUM OXIDE 400 MG TABLET PO (09:16)
[2025-01-12] MEDS: CEFDINIR 300 MG CAPSULE 600 MG PO (09:16)
[2025-01-12] MEDS: METOPROLOL SUCCINATE 25 MG TAB.ER.24H PO (09:16)
[2025-01-12] MEDS: FLUTICASONE PROPIONATE 50 MCG NASAL SPRAY 2 SPRAY NS (09:16)
[2025-01-12] MEDS: ENSURE ORIGINAL 237 ML BOTTLE PO ×2 (09:16→22:04)
[2025-01-12 11:33] LABS: Glucometer 131 mg/dL (74-106)
--- NOTE | 2025-01-12 11:55 | CM.NOTE ---
Discussed with pt and PT and OT recommendations for skilled therapy at discharge. Both are in agreement for skilled therapy and after going over [employer] 5 star rating they are requesting [facility] for skilled therapy. Called and spoke with Ingris at [facility] and faxed Case Management referral, face sheet, and Physician notes.
--- NOTE | 2025-01-12 12:02 | CM.NOTE ---
Medicare outpatient Observation Notice discussed with pt and , both verbalize understanding and pt signs paper. Original given to pt and copy placed on pt's chart.
[2025-01-12] MEDS: 0.9 % SODIUM CHLORIDE 1,000 ML 75 ML IV (12:27)
--- NOTE | 2025-01-12 13:52 | CM.NOTE ---
Called [facility] [place], precert has been started for skilled at discharge.
[2025-01-12] MEDS: TRAMADOL HCL 50 MG TABLET PO ×2 (16:08→22:03)
[2025-01-12] MEDS: ATORVASTATIN CALCIUM 10 MG TABLET PO (22:03)
[2025-01-12] MEDS: HYOSCYAMINE SULFATE 0.125 MG TAB.SUBL SL (22:03)
[2025-01-12] MEDS: AMLODIPINE BESYLATE 5 MG TABLET PO (22:07)
[2025-01-12] MEDS: ONDANSETRON PF 4 MG/2 ML VIAL IV (23:22)
[2025-01-13] VITALS (10 sets, daily range): BP systolic 104–186; BP diastolic 60–97; PULSE 78–99; TEMP 36.3–36.6; O2SAT 90–99
[2025-01-13] MEDS: 0.9 % SODIUM CHLORIDE 1,000 ML 75 ML IV ×2 (02:12→07:37)
[2025-01-13] MEDS: QUETIAPINE FUMARATE 25 MG TABLET PO ×2 (02:12→23:05)
[2025-01-13 05:39] LABS: Basophils Percent Auto 0.4 % (0.2-2.0); Eosinophils Absolute Auto 0.1 10^3/uL (0.0-0.7); Eosinophils Percent Auto 2.1 % (0.9-7.0); Hematocrit 24.5 % (36.0-48.0); Hemoglobin 8.8 g/dL (12.0-16.0); Immature Granulocytes Abs Auto 0.01 10^3/uL (0.00-0.03); Immature Granulocytes Pct Auto 0.2 % (0.0-0.5); Lymphocytes Absolute Auto 0.8 10^3/uL (1.2-3.8); Lymphocytes Percent Auto 17.3 % (20.5-60.0); Mean Corpuscular HGB Conc 35.9 g/dL (29.9-35.2); Mean Corpuscular Hemoglobin 34.4 pg (26.7-34.0); Mean Corpuscular Volume 95.7 fL (81.0-99.0); Mean Platelet Volume 10.3 fL (9.5-13.5); Monocytes Absolute Auto 0.6 10^3/uL (0.3-0.8); Monocytes Percent Auto 12.8 % (1.7-12.0); Neutrophils Absolute Auto 3.1 10^3/uL (1.4-6.5); Neutrophils Percent Auto 67.2 % (43.0-75.0); Platelet Count 71 10^3/uL (150-450); Red Blood Count 2.56 10^6/uL (4.20-5.40); White Blood Count 4.7 10^3/uL (4.0-11.0)
[2025-01-13] MEDS: LEVOTHYROXINE SODIUM 75 MCG TABLET PO (05:57)
[2025-01-13] MEDS: TRAMADOL HCL 50 MG TABLET PO ×3 (05:57→23:04)
[2025-01-13 06:02] LABS: Alanine Aminotransferase 13 U/L (14-59); Albumin Level 2.6 g/dL (3.4-5.0); Alkaline Phosphatase 84 U/L (46-116); Anion Gap 10.6; Aspartate Amino Transferase 14 U/L (15-37); BUN Creatinine Ratio 20.3; Bilirubin Total 0.7 mg/dL (0.2-1.0); Calcium 9.2 mg/dL (8.5-10.1); Carbon Dioxide 27.7 mmol/L (21.0-32.0); Chloride 106 mmol/L (98-107); Creatine Kinase 67 U/L (26-192); Creatine Kinase MB 1.17 ng/mL (<=3.60); Estimated GFR (African America >60 (>=60 mL/min/1.73m^2); Estimated GFR (Non-African Ame >60 (>=60 mL/min/1.73m^2); Globulin 2.7 g/dL; Glucose 111 mg/dL (74-106); Magnesium 1.7 mg/dL (1.8-2.4); Myoglobin 75 ng/mL (9-82); Potassium 3.3 mmol/L (3.5-5.1); Sodium 141 mmol/L (136-145); Total Protein 5.3 g/dL (6.4-8.2); Troponin I High Sensitivity 23.2 pg/mL (4.0-51.3)
--- NOTE | 2025-01-13 08:38 | PM.PN ---
Progress Note: Subjective Subjective Interval history: Patient is sitting in bed attempting to eat lunch. She reports that she is right hand dominant. Her left arm has a short cast and is now in a sling. Both of her eyes are bruised and she has bruising over the left side of her face. With sutures from prior laceration repair. She says she feels very defeated and frustrated. When she stands she still gets very off balance like she will fall. Exam Narrative Exam Narrative: General: Patient is alert, and oriented to person Skin: significant/diffuse bruising over left side of face, bilateral eyes, left arm Head:traumatic, acephalic Eyes: PERRLA, no nystagmus present, conjunctiva clear, no scleral icterus Ears: normal gross auditory acuity Heart: Normal rate and rhythm, no murmurs/rubs/gallops Lungs: no audible wheezes, crackles and normal breath sounds all lung diggs Musculoskeletal: no swelling bilateral lower extremities; left arm is in a sling Neuro: CN II-X grossly intact Constitutional Vital Signs, click to edit/add: Last Vital Signs Temp 97.8 F 01/13/25 07:48 Pulse 84 01/13/25 07:48 Resp 18 01/13/25 07:48 BP 155/84 H 01/13/25 07:48 Pulse Ox 94 L 01/13/25 07:48 O2 Del Method Room Air 01/13/25 07:48 Progress Note: Objective Labs Labs: Short CBC 01/13/25 Range/Units 05:15 WBC 4.7 (4.0-11.0) 10^3/uL Hgb 8.8 L (12.0-16.0) g/dL Hct 24.5 L (36.0-48.0) % Plt Count 71 L (150-450) 10^3/uL BMP 01/13/25 05:15 Sodium 141 Potassium 3.3 L Chloride 106 Carbon Dioxide 27.7 BUN 13.0 Creatinine 0.64 Glucose 111 H Calcium 9.2 Cardiac Enzymes 01/13/25 Range/Units 05:15 Total Creatine Kinase 67 (26-192) U/L CK-MB (CK-2) 1.17 (<=3.60) ng/mL Liver Function 01/13/25 Range/Units 05:15 Total Bilirubin 0.7 (0.2-1.0) mg/dL AST 14 L (15-37) U/L ALT 13 L (14-59) U/L Alkaline Phosphatase 84 (46-116) U/L Albumin 2.6 L (3.4-5.0) g/dL Progress Note: A&P Assessment and Plan (1) Fracture of head of humerus: Assessment and Plan: Ortho recommends sling, pain control. Will have PT/OT evaluations and ensure patient can do well at home. May benefit from inpatient skilled due to multiple fractures and high fall risk. completion of her ADL's are very limited due to her having only one hand/arm. Qualifiers: Encounter type: initial encounter Fracture type: closed Laterality: left Qualified Code(s): S42.292A - Other displaced fracture of upper end of left humerus, initial encounter for closed fracture (2) Forearm fracture: Assessment and Plan: Patient currently in cast, per Ortho, no change in Xray since cast placed Qualifiers: Encounter type: subsequent encounter Fracture healing: with routine healing Fracture type: closed Laterality: left Qualified Code(s): S52.92XD - Unspecified fracture of left forearm, subsequent encounter for closed fracture with routine healing (3) Fall: Assessment and Plan: pt/ot evaluation. Qualifiers: Encounter type: initial encounter Qualified Code(s): W19.XXXA - Unspecified fall, initial encounter (4) Thrombocytopenia: Assessment and Plan: unknown cause. Monitor. Will need worked up as outpatient (5) Essential (primary) hypertension: Assessment and Plan: continue lisinopril and metoprolol (6) Hypothyroid: Assessment and Plan: continue levothyroxine Qualifiers: Hypothyroidism type: acquired Qualified Code(s): E03.9 - Hypothyroidism, unspecified (7) High cholesterol: Assessment and Plan: continue atorvastatin (8) Dementia: Assessment and Plan: monitor Qualifiers: Dementia behavioral or psychological symptom: unspecified whether behavioral, psychotic, or mood disturbance or anxiety Dementia severity: moderate Dementia type: unspecified type Qualified Code(s): F03.B0 - Unspecified dementia, moderate, without behavioral disturbance, psychotic disturbance, mood disturbance, and anxiety (9) Acid reflux: Assessment and Plan: continue omeprazole Qualifiers: Esophagitis presence: without esophagitis Qualified Code(s): K21.9 - Gastro-esophageal reflux disease without esophagitis (10) Hypokalemia: Assessment and Plan: replace with oral potassium, was 3.3 (11) Hypomagnesemia: Assessment and Plan: replace with IV mag was 1.7 Plan Patient is a DNRCC Patient is currently observation status but was changed to inpatient status today due to crossing 2 midnights for pain control and PT/OT evaluations, and limited mobility and ADL's assistance with falls
[2025-01-13] MEDS: MAGNESIUM SULFATE IN WATER 2 GM/50 ML PREMIX IV (09:43)
[2025-01-13] MEDS: ACETAMINOPHEN 500 MG TABLET 1000 MG PO ×2 (09:44→23:04)
[2025-01-13] MEDS: ENSURE ORIGINAL 237 ML BOTTLE PO ×2 (09:44→23:05)
[2025-01-13] MEDS: PANTOPRAZOLE SODIUM 40 MG TABLET.DR PO (09:44)
[2025-01-13] MEDS: CEFDINIR 300 MG CAPSULE 600 MG PO (09:44)
[2025-01-13] MEDS: MAGNESIUM OXIDE 400 MG TABLET PO (09:44)
[2025-01-13] MEDS: AMLODIPINE BESYLATE 5 MG TABLET PO (09:44)
[2025-01-13] MEDS: FLUTICASONE PROPIONATE 50 MCG NASAL SPRAY 2 SPRAY NS (09:45)
[2025-01-13] MEDS: POTASSIUM CHLORIDE 10 MEQ ER TABLET PO ×2 (09:45→23:05)
--- NOTE | 2025-01-13 10:55 | PT.DAILY ---
Physical Therapy Daily Note PT Daily Note/Assess Start: 01/13/25 10:45 Freq: Status: Active Protocol: Document 01/13/25 10:46 [id number] (Rec: 01/13/25 10:55 [id number]) Physical Therapy Daily Note/Assessment Time In/Time Out Time In 09:05 Time Out 09:22 Pain In Pain Level 0 Pain Out Pain Level 0 Subjective Subjective Patient received supine in bed and agreeable to participate with PT. present during treatment. Bed alarm disengaged. Therapeutic Exercise Time Therapeutic Exercise 5 Minutes (minutes) Therapeutic Exercise 0 Units Therapeutic Exercise Treatment Therapeutic Exercise Patient performed supine JONATHAN LE ther ex for ankle pumps Treatment , quad/glut sets, SLR x 10 reps. Patient performed seated EOB JONATHAN LE ther ex for heel/toe raises, marching , hip ABD/ADD and LAQ x 10 reps. Ther ex to increase JONATHAN LE strength with functional mobility. Therapeutic Activity Time Therapeutic Activity 12 Minutes (minutes) Therapeutic Activity 1 Units Therapeutic Activity Treatment Bed Mobility Ability Minimum Assist,Moderate Assist Chair Transfer Minimum Assist Ability Therapeutic Activity Bed mobility: supine to R sit EOB is MIN to MOD A +1. Comments Patient sat EOB and performed JONATHAN ther ex. Patient uses R UE to support self. Transfer: sit to stand with LBQC is MIN A +1. Patient stood ~25 seconds and then verbalized dizziness. Patient seated EOB with VC's to use R UE for safety. Patient sat several minutes to allow dizziness to resolve. Sit to stand to LBQC with MIN A +1. Patient stepped to R for ~3 small steps towards HOB and transferred to sitting EOB. No C/O dizziness. Patient transferred sit to supine with MIN to MOD A +1. CBWR, bed alarm engaged and needs met. Nursing notified of patient placement and acknowledge information. Total Physical Therapy Time Total Therapy 17 Minutes Total Physical 1 Therapy Units Summary Daily Note Summary Ambulation distance and progress limited due to dizziness. Patient would benefit from SNF to address functional deficits.
[2025-01-13 20:19] LABS: Glucometer 128 mg/dL (74-106)
[2025-01-13] MEDS: HYOSCYAMINE SULFATE 0.125 MG TAB.SUBL SL (23:04)
[2025-01-13] MEDS: ATORVASTATIN CALCIUM 10 MG TABLET PO (23:04)
[2025-01-14] VITALS (7 sets, daily range): BP systolic 124–153; BP diastolic 75–84; PULSE 81–107; TEMP 36.3–36.7; O2SAT 92–95
[2025-01-14] MEDS: LEVOTHYROXINE SODIUM 75 MCG TABLET PO (05:35)
[2025-01-14 07:15] LABS: Basophils Percent Auto 0.5 % (0.2-2.0); Eosinophils Absolute Auto 0.2 10^3/uL (0.0-0.7); Eosinophils Percent Auto 4.5 % (0.9-7.0); Hemoglobin 8.3 g/dL (12.0-16.0); Immature Granulocytes Abs Auto 0.03 10^3/uL (0.00-0.03); Immature Granulocytes Pct Auto 0.8 % (0.0-0.5); Lymphocytes Absolute Auto 0.9 10^3/uL (1.2-3.8); Lymphocytes Percent Auto 22.6 % (20.5-60.0); Mean Corpuscular HGB Conc 36.6 g/dL (29.9-35.2); Mean Corpuscular Hemoglobin 35.5 pg (26.7-34.0); Mean Platelet Volume 10.2 fL (9.5-13.5); Monocytes Absolute Auto 0.5 10^3/uL (0.3-0.8); Monocytes Percent Auto 11.8 % (1.7-12.0); Neutrophils Absolute Auto 2.3 10^3/uL (1.4-6.5); Neutrophils Percent Auto 59.8 % (43.0-75.0); Platelet Count 79 10^3/uL (150-450); Red Blood Count 2.34 10^6/uL (4.20-5.40); Red Cell Distribution Width 13.6 % (11.0-15.0); White Blood Count 3.8 10^3/uL (4.0-11.0)
[2025-01-14 07:18] LABS: Hematocrit 22.7 % (36.0-48.0)
[2025-01-14 07:29] LABS: Alanine Aminotransferase 14 U/L (14-59); Albumin Level 2.5 g/dL (3.4-5.0); Alkaline Phosphatase 78 U/L (46-116); Anion Gap 12.2; Aspartate Amino Transferase 16 U/L (15-37); BUN Creatinine Ratio 22.4; Bilirubin Total 0.6 mg/dL (0.2-1.0); Calcium 8.6 mg/dL (8.5-10.1); Carbon Dioxide 28.3 mmol/L (21.0-32.0); Chloride 106 mmol/L (98-107); Estimated GFR (African America >60 (>=60 mL/min/1.73m^2); Estimated GFR (Non-African Ame >60 (>=60 mL/min/1.73m^2); Globulin 2.6 g/dL; Glucose 97 mg/dL (74-106); Potassium 3.5 mmol/L (3.5-5.1); Sodium 143 mmol/L (136-145); Total Protein 5.1 g/dL (6.4-8.2)
--- NOTE | 2025-01-14 09:11 | P.PN_ITS ---
Progress Note: Subjective Subjective Interval history: Patient is sitting in bed and is at bedside, he reports that her sutures are needing to be removed tomorrow. I have placed an order for this. Tramadol does not seem to be helping her pain. Shoulder pain more today with transfers. She is not aware of medication that has helped things in the past. Will stop the ultram and start [place] today. Exam Narrative Exam Narrative: General: Patient is alert, and oriented to person Skin: significant/diffuse bruising over left side of face, bilateral eyes, left arm Head:traumatic, acephalic Eyes: PERRLA, no nystagmus present, conjunctiva clear, no scleral icterus Ears: normal gross auditory acuity Heart: Normal rate and rhythm, no murmurs/rubs/gallops Lungs: no audible wheezes, crackles and normal breath sounds all lung diggs Musculoskeletal: no swelling bilateral lower extremities; left arm is in a sling Neuro: CN II-X grossly intact Constitutional Vital Signs, click to edit/add: Last Vital Signs Temp 97.8 F 01/14/25 07:51 Pulse 90 01/14/25 07:51 Resp 16 01/14/25 07:51 BP 147/84 H 01/14/25 07:51 Pulse Ox 94 L 01/14/25 07:51 O2 Del Method Room Air 01/14/25 07:51 Progress Note: Objective Labs Labs: Short CBC 01/14/25 Range/Units 06:40 WBC 3.8 L (4.0-11.0) 10^3/uL Hgb 8.3 L (12.0-16.0) g/dL Hct 22.7 L* (36.0-48.0) % Plt Count 79 L (150-450) 10^3/uL BMP 01/14/25 06:40 Sodium 143 Potassium 3.5 Chloride 106 Carbon Dioxide 28.3 BUN 13.0 Creatinine 0.58 Glucose 97 Calcium 8.6 Liver Function 01/14/25 Range/Units 06:40 Total Bilirubin 0.6 (0.2-1.0) mg/dL AST 16 (15-37) U/L ALT 14 (14-59) U/L Alkaline Phosphatase 78 (46-116) U/L Albumin 2.5 L (3.4-5.0) g/dL Progress Note: A&P Assessment and Plan (1) Fracture of head of humerus: Assessment and Plan: would benefit from inpatient skilled due to multiple fractures and high fall risk. completion of her ADL's are very limited due to her having only one hand/arm. continue sling, add norco for pain control Qualifiers: Encounter type: initial encounter Fracture type: closed Laterality: left Qualified Code(s): S42.292A - Other displaced fracture of upper end of left humerus, initial encounter for closed fracture (2) Forearm fracture: Assessment and Plan: Patient currently in cast, per Ortho, no change in Xray since cast placed Qualifiers: Encounter type: subsequent encounter Fracture healing: with routine healing Fracture type: closed Laterality: left Qualified Code(s): S52.92XD - Unspecified fracture of left forearm, subsequent encounter for closed fracture with routine healing (3) Fall: Assessment and Plan: pt/ot evaluation and treatment Qualifiers: Encounter type: initial encounter Qualified Code(s): W19.XXXA - Unspecified fall, initial encounter (4) Thrombocytopenia: Assessment and Plan: unknown cause. Monitor. Will need worked up as outpatient (5) Essential (primary) hypertension: Assessment and Plan: continue lisinopril and metoprolol (6) Hypothyroid: Assessment and Plan: continue levothyroxine Qualifiers: Hypothyroidism type: acquired Qualified Code(s): E03.9 - Hypothyroidism, unspecified (7) High cholesterol: Assessment and Plan: continue atorvastatin (8) Dementia: Assessment and Plan: monitor Qualifiers: Dementia behavioral or psychological symptom: unspecified whether behavioral, psychotic, or mood disturbance or anxiety Dementia severity: moderate Dementia type: unspecified type Qualified Code(s): F03.B0 - Unspecified dementia, moderate, without behavioral disturbance, psychotic disturbance, mood disturbance, and anxiety (9) Acid reflux: Assessment and Plan: continue omeprazole Qualifiers: Esophagitis presence: without esophagitis Qualified Code(s): K21.9 - Gastro-esophageal reflux disease without esophagitis (10) Hypokalemia: Assessment and Plan: replace with oral potassium, was 3.3 (11) Hypomagnesemia: Assessment and Plan: replace with IV mag was 1.7 Plan Patient is a DNRCC Monitor H&H due to hematomas
[2025-01-14] MEDS: POTASSIUM CHLORIDE 10 MEQ ER TABLET PO ×2 (09:33→21:01)
[2025-01-14] MEDS: CEFDINIR 300 MG CAPSULE 600 MG PO (09:33)
[2025-01-14] MEDS: MAGNESIUM OXIDE 400 MG TABLET PO (09:33)
[2025-01-14] MEDS: AMLODIPINE BESYLATE 5 MG TABLET PO (09:33)
[2025-01-14] MEDS: PANTOPRAZOLE SODIUM 40 MG TABLET.DR PO (09:33)
[2025-01-14] MEDS: ENSURE ORIGINAL 237 ML BOTTLE PO ×2 (09:33→21:01)
[2025-01-14] MEDS: ACETAMINOPHEN 500 MG TABLET 1000 MG PO ×2 (09:33→18:52)
[2025-01-14] MEDS: HYDROCODONE/ACET 5-325 MG TABLET 1 TAB PO (15:10)
[2025-01-14] MEDS: ATORVASTATIN CALCIUM 10 MG TABLET PO (21:01)
[2025-01-14] MEDS: QUETIAPINE FUMARATE 25 MG TABLET PO (21:01)
[2025-01-15] VITALS (8 sets, daily range): BP systolic 104–177; BP diastolic 65–93; PULSE 88–98; TEMP 36.7–36.8; O2SAT 92–97
[2025-01-15 05:36] LABS: Basophils Percent Auto 0.8 % (0.2-2.0); Eosinophils Absolute Auto 0.2 10^3/uL (0.0-0.7); Eosinophils Percent Auto 4.4 % (0.9-7.0); Hemoglobin 8.4 g/dL (12.0-16.0); Immature Granulocytes Abs Auto 0.01 10^3/uL (0.00-0.03); Immature Granulocytes Pct Auto 0.3 % (0.0-0.5); Lymphocytes Absolute Auto 0.9 10^3/uL (1.2-3.8); Lymphocytes Percent Auto 24.5 % (20.5-60.0); Mean Corpuscular HGB Conc 35.4 g/dL (29.9-35.2); Mean Corpuscular Hemoglobin 34.7 pg (26.7-34.0); Mean Corpuscular Volume 97.9 fL (81.0-99.0); Mean Platelet Volume 10.2 fL (9.5-13.5); Monocytes Absolute Auto 0.5 10^3/uL (0.3-0.8); Neutrophils Absolute Auto 2.2 10^3/uL (1.4-6.5); Platelet Count 84 10^3/uL (150-450); Red Blood Count 2.42 10^6/uL (4.20-5.40); Red Cell Distribution Width 13.4 % (11.0-15.0); White Blood Count 3.8 10^3/uL (4.0-11.0)
[2025-01-15] MEDS: LEVOTHYROXINE SODIUM 75 MCG TABLET PO (05:41)
[2025-01-15] MEDS: ACETAMINOPHEN 500 MG TABLET 1000 MG PO (05:41)
[2025-01-15 06:00] LABS: Alanine Aminotransferase 10 U/L (14-59); Albumin Globulin Ratio 0.8; Albumin Level 2.3 g/dL (3.4-5.0); Alkaline Phosphatase 78 U/L (46-116); Anion Gap 10.6; Aspartate Amino Transferase 15 U/L (15-37); BUN Creatinine Ratio 23.7; Bilirubin Total 0.6 mg/dL (0.2-1.0); Calcium 9.1 mg/dL (8.5-10.1); Carbon Dioxide 29.2 mmol/L (21.0-32.0); Chloride 107 mmol/L (98-107); Estimated GFR (African America >60 (>=60 mL/min/1.73m^2); Estimated GFR (Non-African Ame >60 (>=60 mL/min/1.73m^2); Globulin 2.8 g/dL; Glucose 99 mg/dL (74-106); Potassium 3.8 mmol/L (3.5-5.1); Sodium 143 mmol/L (136-145); Total Protein 5.1 g/dL (6.4-8.2)
[2025-01-15 06:17] LABS: Hematocrit 23.7 % (36.0-48.0)
--- NOTE | 2025-01-15 07:59 | PM.DS1 ---
DS: Providers Provider Date of admission: 01/13/25 08:31 Primary care physician: FERNIE LEONG Attending physician on admission: Wilman Wise Consults: 01/11/25 22:15 Consult to Maintenance Service Technician Routine Has provider been notified: No Reason for consult:: [facility] 01/12/25 05:39 Consult to Pharmacy Routine Consulting Provider: Reason for consultation: Please [place] me when Med Rec is Updated Has provider been notified: No Occupational Therapy Eval and Treat Routine Reason for consultation: Only if needed for Rehab Has provider been notified: No Physical Therapy Eval and Treat Routine Reason for consultation: Eval and Treat Has provider been notified: No 01/12/25 05:46 Consult to Orthopedic Surgery Routine Consulting Provider: Charles Hendricks Reason For Exam: Reason for consultation: Left prox humerus fx Has provider been notified: No 01/13/25 08:32 Physical Therapy Eval and Treat Routine Reason for consultation: left humeral head fracture, in sling, NWB LUE Has provider been notified: No 01/13/25 08:33 Occupational Therapy Eval and Treat Routine Reason for consultation: left humeral head fracture, in sling, NWB LUE Has provider been notified: No Discharging clinician: Luz Oneil DS: Diagnosis Discharge Diagnosis (1) Fracture of head of humerus: Qualifiers: Encounter type: initial encounter Fracture type: closed Laterality: left Qualified Code(s): S42.292A - Other displaced fracture of upper end of left humerus, initial encounter for closed fracture (2) Forearm fracture: Qualifiers: Encounter type: subsequent encounter Fracture healing: with routine healing Fracture type: closed Laterality: left Qualified Code(s): S52.92XD - Unspecified fracture of left forearm, subsequent encounter for closed fracture with routine healing (3) Fall: Qualifiers: Encounter type: initial encounter Qualified Code(s): W19.XXXA - Unspecified fall, initial encounter (4) Thrombocytopenia: (5) Essential (primary) hypertension: (6) Hypothyroid: Qualifiers: Hypothyroidism type: acquired Qualified Code(s): E03.9 - Hypothyroidism, unspecified (7) High cholesterol: (8) Dementia: Qualifiers: Dementia behavioral or psychological symptom: unspecified whether behavioral, psychotic, or mood disturbance or anxiety Dementia severity: moderate Dementia type: unspecified type Qualified Code(s): F03.B0 - Unspecified dementia, moderate, without behavioral disturbance, psychotic disturbance, mood disturbance, and anxiety (9) Acid reflux: Qualifiers: Esophagitis presence: without esophagitis Qualified Code(s): K21.9 - Gastro-esophageal reflux disease without esophagitis (10) Hypokalemia: (11) Hypomagnesemia: DS: Summary Hospital Course Hospital Course: Patient is a 79 y.o admitted on 01/12 after traumatic fall causing a fracture: (1) Fracture of head of humerus: Assessment and Plan: plans to go inpatient skilled due to multiple fractures and high fall risk. completion of her ADL's are very limited due to her having only one hand/arm. continue sling, continue norco for pain control as needed; continue sling and will follow up with Ortho Qualifiers: Encounter type: initial encounter Fracture type: closed Laterality: left Qualified Code(s): S42.292A - Other displaced fracture of upper end of left humerus, initial encounter for closed fracture (2) Forearm fracture: Assessment and Plan: Patient currently in cast, per Ortho Qualifiers: Encounter type: subsequent encounter Fracture healing: with routine healing Fracture type: closed Laterality: left Qualified Code(s): S52.92XD - Unspecified fracture of left forearm, subsequent encounter for closed fracture with routine healing (3) Fall: Assessment and Plan: pt/ot evaluation and treatment- [facility] [place] [facility] Qualifiers: Encounter type: initial encounter Qualified Code(s): W19.XXXA - Unspecified fall, initial encounter (4) Thrombocytopenia: Assessment and Plan: unknown cause. Will need worked up as outpatient (5) Essential (primary) hypertension: Assessment and Plan: continue lisinopril and metoprolol and addition of amlodipine (6) Hypothyroid: Assessment and Plan: continue levothyroxine Qualifiers: Hypothyroidism type: acquired Qualified Code(s): E03.9 - Hypothyroidism, unspecified (7) High cholesterol: Assessment and Plan: continue atorvastatin (8) Dementia: Assessment and Plan: monitor Qualifiers: Dementia behavioral or psychological symptom: unspecified whether behavioral, psychotic, or mood disturbance or anxiety Dementia severity: moderate Dementia type: unspecified type Qualified Code(s): F03.B0 - Unspecified dementia, moderate, without behavioral disturbance, psychotic disturbance, mood disturbance, and anxiety (9) Acid reflux: Assessment and Plan: continue omeprazole Qualifiers: Esophagitis presence: without esophagitis Qualified Code(s): K21.9 - Gastro-esophageal reflux disease without esophagitis (10) Hypokalemia: Assessment and Plan: replace with oral potassium, was 3.3 (11) Hypomagnesemia: Assessment and Plan: continue oral replacement (12) UTI due to Klebsiella species- sensitive to Augmentin 500mg BID x 7 days. Status at Discharge Functional status at discharge: uses cane/walker Overall status at discharge: patient is progressing back to baseline Time Spent with Patient Time attestation: Total time spent providing and/or coordinating discharge services: Time spent: greater than 30 minutes Exam Narrative Exam Narrative: General: Patient is alert, and oriented to person Skin: significant/diffuse bruising over left side of face, bilateral eyes, left arm Head:traumatic, acephalic Eyes: PERRLA, no nystagmus present, conjunctiva clear, no scleral icterus Ears: normal gross auditory acuity Heart: Normal rate and rhythm, no murmurs/rubs/gallops Lungs: no audible wheezes, crackles and normal breath sounds all lung diggs Musculoskeletal: no swelling bilateral lower extremities; left arm is in a sling Neuro: CN II-X grossly intact Constitutional Vital Signs, click to edit/add: Last Vital Signs Temp 98.2 F 01/15/25 03:00 Pulse 96 H 01/15/25 03:00 Resp 18 01/15/25 03:00 BP 134/77 01/15/25 03:00 Pulse Ox 92 L 01/15/25 03:00 O2 Del Method Room Air 01/15/25 03:00 DS: Data Data Completed and Pending Labs on day of discharge: Labs from last 24 hours 01/15/25 04:58 WBC 3.8 L RBC 2.42 L Hgb 8.4 L Hct 23.7 L* MCV 97.9 MCH 34.7 H MCHC 35.4 H RDW 13.4 Plt Count 84 L MPV 10.2 Neut % (Auto) 57.0 Lymph % (Auto) 24.5 Island % (Auto) 13.0 H Eos % (Auto) 4.4 Baso % (Auto) 0.8 Neut # (Auto) 2.2 Lymph # (Auto) 0.9 L Island # (Auto) 0.5 Eos # (Auto) 0.2 Baso # (Auto) 0.0 Abs Immat Gran (auto) 0.01 Imm/Tot Granulo (auto) 0.3 Sodium 143 Potassium 3.8 Chloride 107 Carbon Dioxide 29.2 Anion Gap 10.6 BUN 14.0 Creatinine 0.59 Est GFR ( Amer) >60 Est GFR (Non-Af Amer) >60 BUN/Creatinine Ratio 23.7 Glucose 99 Calcium 9.1 Total Bilirubin 0.6 AST 15 ALT 10 L Alkaline Phosphatase 78 Total Protein 5.1 L Albumin 2.3 L Globulin 2.8 Albumin/Globulin Ratio 0.8 Preliminary micro results at discharge 01/11/25 21:20 Urine Culture - Preliminary Urine,Clean Catch Pending - Specimen sent to [facility] Discharge Plan Discharge Disposition: Xfer [facility] Discharge Medications: New hydrocodone-acetaminophen 5-325 mg Tablet 1 tab PO Q6H PRN (Reason: Pain) 1 Days Qty: 4 0RF amlodipine 5 mg Tablet 5 mg PO QD Qty: 0 0RF magnesium oxide 400 mg (241.3 mg magnesium) Tablet 400 mg PO QD 30 Days Qty: 0 0RF Ensure Original 0.04-1.05 gram-kcal/mL Liquid 1 ea PO BID Qty: 0 0RF amoxicillin-pot clavulanate [Augmentin] 500-125 mg tablet 1 tab PO Q12H 7 Days Qty: 14 0RF Continued acetaminophen [Tylenol Extra Strength] 500 mg tablet 1,000 mg PO Q6H PRN (Reason: pain) fluticasone propionate 50 mcg/actuation [place],Suspension 2 spray intranasal QD Qty: 16 0RF atorvastatin 10 mg tablet 10 mg PO DAILY metoprolol succinate 25 mg tablet extended release 24 hr 25 mg PO DAILY levothyroxine 75 mcg tablet 75 mcg PO DAILY omeprazole 40 mg capsule,delayed release(DR/EC) 40 mg PO DAILY lisinopril 5 mg tablet 5 mg PO DAILY Print Language: East Timorese Activity Restrictions/Additional Instructions: No Weight Bearing of the Left arm; wear sling until evaluated by Ortho at follow up Forms: Portal Instructions Follow Up Appointments: Dr Hendricks in 1 week, 01/22 Discharge location: To [facility]
--- NOTE | 2025-01-15 09:10 | CM.NOTE ---
Rounds made with Dr. Oneil, pt voices that change in pain medication has helped. Pt will discharge to [facility] for skilled therapy when medically stable.
[2025-01-15] MEDS: ENSURE ORIGINAL 237 ML BOTTLE PO ×2 (09:13→22:04)
[2025-01-15] MEDS: AMLODIPINE BESYLATE 5 MG TABLET PO (09:13)
[2025-01-15] MEDS: MAGNESIUM OXIDE 400 MG TABLET PO (09:13)
[2025-01-15] MEDS: HYDROCODONE/ACET 5-325 MG TABLET 1 TAB PO ×3 (09:13→22:09)
[2025-01-15] MEDS: PANTOPRAZOLE SODIUM 40 MG TABLET.DR PO (09:13)
[2025-01-15] MEDS: CEFDINIR 300 MG CAPSULE 600 MG PO (09:13)
[2025-01-15] MEDS: POTASSIUM CHLORIDE 10 MEQ ER TABLET PO ×2 (09:13→22:04)
--- NOTE | 2025-01-15 12:11 | PT.DAILY ---
Physical Therapy Daily Note PT Daily Note/Assess Start: 01/13/25 10:45 Freq: Status: Active Protocol: Document 01/15/25 12:00 [id number] (Rec: 01/15/25 12:11 [id number]) Physical Therapy Daily Note/Assessment Time In/Time Out Time In 10:36 Time Out 10:52 Pain In Pain Level 5 Pain Out Pain Level 5 Subjective Subjective Patient received supine in bed and is agreeable to participating with PT. States her L arm is painful today. Bed alarm disengaged. Therapeutic Exercise Time Therapeutic Exercise 7 Minutes (minutes) Therapeutic Exercise 0 Units Therapeutic Exercise Treatment Therapeutic Exercise Patient performed JONATHAN LE ther ex for strengthening in Treatment supine for ankle pumps, quad sets, heel slides, SAQ, hip ABD/ADD and SLR x 10 reps. Seated JONATHAN LE ther ex for strengthening for heel/toe raises, marching, MRE hip ABD/ADD x 10 reps. Patient requires all reps with frequent redirection to task at hand. Therapeutic Activity Time Therapeutic Activity 9 Minutes (minutes) Therapeutic Activity 1 Units Therapeutic Activity Treatment Bed Mobility Ability Moderate Assist Chair Transfer Minimum Assist Ability Therapeutic Activity Bed mobility: supine to R sit is MOD A +1. Patient Comments verbalizes increased L UE pain with functional movement . Patient sits EOB with intermittent R UE support. Transfer: sit to stand to [facility] on R is MIN A +1. Patient does not verbalize any dizziness this date, thinks her glasses need to be adjusted due to previous fall bending them. Patient ambulated f/b x 8 reps for 2 step each with CGA +1 and appropriate sequencing with LBQC. Patient seated EOB with MIN A +1. Patient requests to use bathroom. STS transfer is CGA +1. Patient ambulated ~18 feet to and from bathroom with CGA +1 with use of LBQC. Patient is able to control descent to commode. Patient requires MAX +1 to clean keenan region. Transfer: commode to stand to LB is MIN A +1. Patient returned to EOB with transfer to supine with MOD A +1 for LE management. Bed alarm engaged, CBWR and all needs met Nursing notified of patient placement and acknowledged information. Total Physical Therapy Time Total Therapy 16 Minutes Total Physical 1 Therapy Units Summary Daily Note Summary Patient with increased ambulation distance this date without dizziness. L UE NWB status and pain limiting patient function with bed mobility and transfers. Patient would benefit from SNF upon D/C to address functional mobility and return to PLOF.
--- NOTE | 2025-01-15 14:08 | CM.NOTE ---
Dr. Oneil given final urine culture results.
[2025-01-15] MEDS: QUETIAPINE FUMARATE 25 MG TABLET PO (22:04)
[2025-01-15] MEDS: ATORVASTATIN CALCIUM 10 MG TABLET PO (22:04)
[2025-01-16] VITALS (7 sets, daily range): BP systolic 106–153; BP diastolic 68–82; PULSE 88–111; TEMP 36.6–37.2; O2SAT 91–97
[2025-01-16] MEDS: LEVOTHYROXINE SODIUM 75 MCG TABLET PO (05:34)
[2025-01-16 05:45] LABS: Basophils Percent Auto 0.8 % (0.2-2.0); Eosinophils Absolute Auto 0.2 10^3/uL (0.0-0.7); Eosinophils Percent Auto 4.5 % (0.9-7.0); Hematocrit 24.8 % (36.0-48.0); Hemoglobin 8.5 g/dL (12.0-16.0); Immature Granulocytes Abs Auto 0.01 10^3/uL (0.00-0.03); Immature Granulocytes Pct Auto 0.3 % (0.0-0.5); Lymphocytes Absolute Auto 0.9 10^3/uL (1.2-3.8); Lymphocytes Percent Auto 24.5 % (20.5-60.0); Mean Corpuscular HGB Conc 34.3 g/dL (29.9-35.2); Mean Corpuscular Hemoglobin 33.9 pg (26.7-34.0); Mean Corpuscular Volume 98.8 fL (81.0-99.0); Mean Platelet Volume 10.3 fL (9.5-13.5); Monocytes Absolute Auto 0.4 10^3/uL (0.3-0.8); Monocytes Percent Auto 11.6 % (1.7-12.0); Neutrophils Absolute Auto 2.2 10^3/uL (1.4-6.5); Neutrophils Percent Auto 58.3 % (43.0-75.0); Platelet Count 99 10^3/uL (150-450); Red Blood Count 2.51 10^6/uL (4.20-5.40); Red Cell Distribution Width 13.6 % (11.0-15.0); White Blood Count 3.8 10^3/uL (4.0-11.0)
[2025-01-16 06:02] LABS: Alanine Aminotransferase 13 U/L (14-59); Albumin Globulin Ratio 0.9; Albumin Level 2.4 g/dL (3.4-5.0); Alkaline Phosphatase 79 U/L (46-116); Anion Gap 10.9; Aspartate Amino Transferase 16 U/L (15-37); BUN Creatinine Ratio 21.2; Bilirubin Total 0.6 mg/dL (0.2-1.0); Calcium 9.1 mg/dL (8.5-10.1); Carbon Dioxide 30.2 mmol/L (21.0-32.0); Chloride 105 mmol/L (98-107); Estimated GFR (African America >60 (>=60 mL/min/1.73m^2); Estimated GFR (Non-African Ame >60 (>=60 mL/min/1.73m^2); Globulin 2.8 g/dL; Glucose 93 mg/dL (74-106); Potassium 4.1 mmol/L (3.5-5.1); Sodium 142 mmol/L (136-145); Total Protein 5.2 g/dL (6.4-8.2)
[2025-01-16] MEDS: CEFDINIR 300 MG CAPSULE 600 MG PO (08:57)
[2025-01-16] MEDS: MAGNESIUM OXIDE 400 MG TABLET PO (08:57)
[2025-01-16] MEDS: POTASSIUM CHLORIDE 10 MEQ ER TABLET PO ×2 (08:57→21:10)
[2025-01-16] MEDS: AMLODIPINE BESYLATE 5 MG TABLET PO (08:57)
[2025-01-16] MEDS: ENSURE ORIGINAL 237 ML BOTTLE PO ×2 (08:57→21:10)
[2025-01-16] MEDS: PANTOPRAZOLE SODIUM 40 MG TABLET.DR PO (08:57)
--- NOTE | 2025-01-16 10:38 | CM.NOTE ---
Rounds made with Dr. Oneil. Dr. Oneil discusses plan of care with and Jane Agusto. Continue with current plan of care.
--- NOTE | 2025-01-16 13:43 | PT.DAILY ---
Physical Therapy Daily Note PT Daily Note/Assess Start: 01/13/25 10:45 Freq: Status: Active Protocol: Document 01/16/25 13:38 IAN (Rec: 01/16/25 13:43 IAN [id number]) Physical Therapy Daily Note/Assessment Time In/Time Out Time In 13:18 Time Out 13:38 Subjective Subjective Patient reports has not been up today, agreeable to get up to the chair. C/O pain with bed mobility and transfers more in sternum vs L UE. When nurse comes into room tells nurse she has no pain. Therapeutic Exercise Time Therapeutic Exercise 5 Minutes (minutes) Therapeutic Exercise 0 Units Therapeutic Exercise Treatment Therapeutic Exercise Seated exercises with AROM and isometrics to promote LE Treatment strength 10 reps each. Therapeutic Activity Time Therapeutic Activity 15 Minutes (minutes) Therapeutic Activity 1 Units Therapeutic Activity Treatment Bed Mobility Ability Moderate Assist Chair Transfer Minimum Assist Ability Therapeutic Activity Supine to sit mod assist with increased pain. Sit to Comments stand with use of LBQC on R side due to L UE NWB min assist. Patient complains of dizziness with initial standing but subsides. Gait 15' with LBQC min assist, unsteady but no significant LOB noted. Total Physical Therapy Time Total Therapy 20 Minutes Total Physical 1 Therapy Units Summary Daily Note Summary Patient requires assistance with gait and transfers due to unsteadiness/poor balance and poor safety awareness at times. Does require increased assistance with bed mobility this pm due to increased pain. Overall patient will need skilled rehab at OR to improved strength and return to PLOF without increased level of assistance. Patient in chair with alarm placed, call light in reach and all needs met post RX.
--- NOTE | 2025-01-16 14:06 | SWNOTE1 ---
SW sent progress notes, labs, vitals, and PT note from today to [place] for precert.
[2025-01-16] MEDS: ACETAMINOPHEN 500 MG TABLET 1000 MG PO (14:40)
[2025-01-16] MEDS: AMOXICILLIN/POT CLAV 875-125 MG TABLET 1 TAB PO ×2 (14:40→21:10)
--- NOTE | 2025-01-16 15:20 | SWNOTE1 ---
SW attempted to call pt's insurance to check on precert. Insurance precert temporarily unavailable, then hung up on SW. SW to try again later today or tomorrow.
[2025-01-16] MEDS: QUETIAPINE FUMARATE 25 MG TABLET PO (21:10)
[2025-01-16] MEDS: ATORVASTATIN CALCIUM 10 MG TABLET PO (21:10)
[2025-01-17] VITALS: BP 159/98; PULSE 113; TEMP 36.4; O2SAT 93
[2025-01-17] MEDS: ONDANSETRON PF 4 MG/2 ML VIAL IV (01:58)
[2025-01-17 05:00] VITALS: BP 155/88; PULSE 94; TEMP 36.8; O2SAT 91
[2025-01-17] MEDS: LEVOTHYROXINE SODIUM 75 MCG TABLET PO (05:37)
[2025-01-17 07:41] VITALS: BP 147/93; PULSE 97; TEMP 36.6; O2SAT 95
--- NOTE | 2025-01-17 08:41 | SWNOTE1 ---
HARJIT received an email from [facility] and pt is approved to go to [facility]. HARJIT let Dr. Oneil know.
[2025-01-17] MEDS: AMLODIPINE BESYLATE 5 MG TABLET PO (08:58)
[2025-01-17] MEDS: AMOXICILLIN/POT CLAV 875-125 MG TABLET 1 TAB PO (08:58)
[2025-01-17] MEDS: POTASSIUM CHLORIDE 10 MEQ ER TABLET PO (08:58)
[2025-01-17] MEDS: ACETAMINOPHEN 500 MG TABLET 1000 MG PO (08:58)
--- NOTE | 2025-01-17 08:58 | SWNOTE1 ---
SW completed HENS yesterday in case pt was discharged yesterday evening.
[2025-01-17] MEDS: MAGNESIUM OXIDE 400 MG TABLET PO (08:59)
[2025-01-17] MEDS: ENSURE ORIGINAL 237 ML BOTTLE PO (08:59)
[2025-01-17] MEDS: PANTOPRAZOLE SODIUM 40 MG TABLET.DR PO (08:59)
[2025-01-17] MEDS: FLUTICASONE PROPIONATE 50 MCG NASAL SPRAY 2 SPRAY NS (08:59)
--- NOTE | 2025-01-17 09:21 | SWNOTE1 ---
Called the [facility] to see if they have transportation. They can fruit or nut picker the pt at 1:00pm. We notified the nurse and the pt's of fruit or nut picker time. Pt will dc to the [facility] skilled. HARJIT sent dc med rec to [facility] at the [facility].
--- NOTE | 2025-01-17 09:54 | PT.DAILY ---
Physical Therapy Daily Note PT Daily Note/Assess Start: 01/13/25 10:45 Freq: Status: Active Protocol: Document 01/17/25 09:44 REGGIE (Rec: 01/17/25 09:54 REGGIE [id number]) Physical Therapy Daily Note/Assessment Time In/Time Out Time In 09:23 Time Out 09:35 Pain In Pain N/A Pain Out Pain N/A Subjective Subjective Pt supine upon arrival. Agrees to PT. Min L arm pain currently. Therapeutic Exercise Time Therapeutic Exercise 4 Minutes (minutes) Therapeutic Exercise 0 Units Therapeutic Exercise Treatment Therapeutic Exercise Seated ex complete while sitting EOB unsupported 10x ea Treatment to improve strength and mobility prior to gait. Therapeutic Activity Time Therapeutic Activity 5 Minutes (minutes) Therapeutic Activity 1 Units Therapeutic Activity Treatment Bed Mobility Ability Minimum Assist Chair Transfer Contact Guard Assist Ability Therapeutic Activity Supine>sit Aisha to advance trunk to sitting EOB. Comments Completes seated ex at EOB without LOB. Sit>stand to LBQC CGA for safety. Pt amb around room then to BS chair with LBQC CGA for safety - 35' total. c/o dizziness when sitting - nursing notified. CAll light within reach and chair alarm activated. Nursing students present upon departure. Total Physical Therapy Time Total Therapy 9 Minutes Total Physical 1 Therapy Units Summary Daily Note Summary Min improvements with transfers and gait endurance on this date.
--- NOTE | 2025-01-17 10:29 | CM.NOTE ---
Rounds made with Dr. Oneil, pt will discharge to [facility] for skilled therapy.
[2025-01-17 11:12] VITALS: BP 155/82; PULSE 92; TEMP 36.9; O2SAT 94
[2025-01-17 11:34] VITALS: O2SAT 100
--- NOTE | 2025-01-17 12:55 | PC.NURSE ---
Report called to Niurka Foley
== END 2025-01-17 13:09 ==
LOC: ER 21:25 → MS 01-12 07:46
PROVIDERS: Family Medicine; Nurse Practitioner; Registered Nurse; Admitting Provider Family Medicine; Emergency Provider Emergency Medicine; PCP Family Medicine; Visit Provider Family Medicine
DX: S42.212A Unspecified displaced fracture of surgical neck of left humerus, initial encounter for closed fracture (principal); S42.252A Displaced fracture of greater tuberosity of left humerus, initial encounter for closed fracture; W19.XXXA Unspecified fall, initial encounter; Z91.81 History of falling; I95.1 Orthostatic hypotension; D69.6 Thrombocytopenia, unspecified; I10 Essential (primary) hypertension; E03.9 Hypothyroidism, unspecified; K21.9 Gastro-esophageal reflux disease without esophagitis; M06.9 Rheumatoid arthritis, unspecified; E78.00 Pure hypercholesterolemia, unspecified; Z79.82 Long term (current) use of aspirin; N39.0 Urinary tract infection, site not specified; E87.6 Hypokalemia; R73.9 Hyperglycemia, unspecified; E44.0 Moderate protein-calorie malnutrition; E83.42 Hypomagnesemia; S01.412D Laceration without foreign body of left cheek and temporomandibular area, subsequent encounter; W19.XXXD Unspecified fall, subsequent encounter; S52.92XD Unspecified fracture of left forearm, subsequent encounter for closed fracture with routine healing; F03.B0 Unspecified dementia, moderate, without behavioral disturbance, psychotic disturbance, mood disturbance, and anxiety; Z66 Do not resuscitate
CPT/HCPCS: 36415; 70450; 71101; 73030; 73060; 73070; 73100; 80053; 81001; 82550; 82553; 83735; 83874; 84100; 84436; 84443; 84484; 85025; 85610; 85730; 87086; 87088; 87186; 94667; 94668; 94761; 96361; 96374; 96375; 97162; 97165; 97530; 97535; 99285; G0378; J2270; J2405; J3475

== ENCOUNTER 2025-03-23 19:11 | Emergency (ER) | payer MEDICARE, SELFPAY ==
--- OUTSIDE RECORDS SUMMARY | 2025-01-15 05:00 | XMS_ITS ---
Author Organization [facility] Address [address] [place] [address] Care Team Providers Care Bobbin Winder Tender Name Role Phone Ruthie Charles Unavailable [phone] REASON FOR VISIT LEFT DISTAL RADIUS AND ULNA FX, RIGHT HAND CONTUSION Encounters Encounter Location Date Provider Diagnosis [facility] Office [address] [place] [address] [place] [address] 01/15/2025 Charles Ruthie Other closed fracture of distal end of left radius, initial encounter S52.592A Assessments Encounter Date Diagnosis (ICD Code) Assessment Notes Treatment Notes Treatment Clinical Notes Section Notes 01/15/2025 Other closed fracture of distal end of left radius, initial encounter (ICD-10 - S52.592A) Plan Of Treatment Pending Test Test Name Order Date SCC- WRIST 3 VIEW LEFT [id number] 01/15/2025 Progress Notes * SULEMA MCCARTHYEDOB: 4 (79 yo F)Acc No.[id number]:01/15/2025 Patient: DEXTER KOVACS Provider: Hailey Hendricks MD :1945 A ge:79 Y S ex:Female Date:01/15/2025 Address:[place] , [id number] Subjective: * Chief Complaints: * 1 . LEFT DISTAL RADIUS AND ULNA FX, RIGHT HAND CONTUSION. * Medical History: Objective: * Vitals: Assessment: * Assessment: 1. O ther closed fracture of distal end of left radius, initial encounter - S52.592A Plan: * Treatment: * Procedure Codes: 7 3110 X-ray Wrist, 3 view Forms: * Images: * Electronic signature of Ned Hendricks MD on 03/23/2025 at 07:19 PM EDT Sign off status: Pending * Provider: Hailey Hendricks MD Date: 0 01/15/2025 Generated for Abdullahi le/Jyoti/Sheldon on: 0 03/23/2025 07:19 PM EDT
[2025-03-23] VITALS (12 sets, daily range): BP systolic 99–133; BP diastolic 60–86; PULSE 75–87; TEMP 36.4; O2SAT 95–99; BMI 24.0
--- OUTSIDE RECORDS SUMMARY | 2025-03-23 19:19 | XMS_ITS | Encounter Summary ---
Author Organization [facility] Address [address] [facility] [place] [address] Care Team Providers Care Equal Opportunity Specialist Name Role Phone Cynthia Hernandez MD Unavailable Cynthia Hernandez MD Primary Care Provider Libby Ward NP Unavailable [phone] Mariam Glasgow MD Primary Care Provider Cynthia Hernandez MD Primary Care Provider Encounter Details Date Type Department Care Team (Late st Contact Info) Description 10/13/2023 Abstract [facility] [address] [place] [address] Cynthia Hernandez MD [address] [place] [address] Social History Tobacco Use Types [...] documented as of this encounter Care Teams Equal Opportunity Specialist Relationship Specialty Start Date End Date Cynthia Hernandez MD [address] [place] [address] PCP - [employer] 08/09/20 Cynthia Hernandez MD [address] [place] [address] PCP - General Family Medicine 02/05/23 12/28/23 Mariam Glasgow MD [address] [place] [address] PCP - General Geriatric Medicine 12/29/23 01/17/24 Cynthia Hernandez MD [address] [place] [address] PCP - General Family Medicine 01/18/24 Libby Ward NP [address] [facility] [address] Nurse Practitioner Family Medicine 02/05/23 documented as of this encounter
--- OUTSIDE RECORDS SUMMARY | 2025-03-23 19:19 | XMS_ITS | Encounter Summary ---
Author Organization [facility] Address [address] [facility] [place] [address] Care Team Providers Care Change Management Director Name Role Phone Cynthia Hernandez MD Unavailable Cynthia Hernandez MD Primary Care Provider Libby Ward NP Unavailable [phone] Mariam Glasgow MD Primary Care Provider Cynthia Hernandez MD Primary Care Provider Encounter Details Date Type Department Care Team (Late st Contact Info) Description 07/30/2023 Abstract [facility] Family Medicine [address] [place] [address] Cynthia Hernandez MD [address] [place] [address] Social History Tobacco Use Types [...] on filedocumented in this encounter Care Teams Change Management Director Relationship Specialty Start Date End Date Cynthia Hernandez MD [address] [facility] [place] [address] PCP - Aet 08/09/20 Cynthia Hernandez MD [address] [facility] [place] [address] PCP - General Family Medicine 02/05/23 12/28/23 Mariam Glasgow MD [address] [place] [address] PCP - General Geriatric Medicine 12/29/23 01/17/24 Cynthia Hernandez MD [address] [place] [address] PCP - General Family Medicine 01/18/24 Libby Ward NP [address] [place] [address] Nurse Practitioner Family Medicine 02/05/23 documented as of this encounter
--- OUTSIDE RECORDS SUMMARY | 2025-03-23 19:19 | XMS_ITS | Encounter Summary ---
Author Organization [facility] Address [address] [facility] [place] [address] Care Team Providers Care Clay Burner Name Role Phone Cynthia Hernandez MD Unavailable Libby Ward NP Unavailable [phone] Cynthia Hernandez MD Primary Care Provider Encounter Details Date Type Department Care Team (Late st Contact Info) Description 03/13/2025 Refill [facility] Family Medicine [address] [place] [id number] Cynthia Hernandez MD [address] [place], [place] [id number] Primary insomnia Social History Tobacco Use Types Packs/Day Years [...] Telephone Encounter - Cynthia Hernandez MD - 03/13/2025 1:07 PM EDT Refills sent. * Telephone Encounter - Donn Darling - 03/13/2025 10:50 AM EDT Homehealth called - asking for a refill of Dominique's Trazadone - she's not sleeping and that works wellfor her . She didn't know if she was to get that or if you wanted her to try something else. Please home care nurse at [phone] documented in this encounter Plan of Treatment Not on file documented as of this encounter Visit Diagnoses Diagnosis Primary insomnia Persistent disorder of initiating or maintaining sleep documented in this encounter Additional Health Concerns Assessment Noted Time PHQ-9 Depression Total Score: 0 12/30/19 25 9:00 AM EDT documented as of this encounter Care Teams Clay Burner Relationship Specialty Start Date End Date Cynthia Hernandez MD [address] [facility] [place] [address] PCP - [employer] 08/09/20 Cynthia Hernandez MD [address] [facility] [place] [address] PCP - General Family Medicine 01/18/24 Libby Ward NP [address] [facility] [place] [address] Nurse Practitioner Family Medicine 02/05/23 documented as of this encounter
--- OUTSIDE RECORDS SUMMARY | 2025-03-23 19:19 | XMS_ITS | Encounter Summary ---
Author Organization [facility] Address [address] [place] [address] Care Team Providers Care [employer] Hazmat Tanker Driver Name Role Phone Cynthia Hernandez MD Unavailable Cynthia Hernandez MD Primary Care Provider [phone] Libby Ward NP Unavailable [phone] Mariam Glasgow MD Primary Care Provider Cynthia Hernandez MD Primary Care Provider Encounter Details Date Type Department Care Team (Late st Contact Info) Description 11/10/2023 Abstract [facility] [address] [place] [address] Shital Briscoe NP [address] [place] [id number] Social History Tobacco Use Types Packs/Day Years [...] documented as of this encounter Care Teams [employer] Tanker Driver Relationship Specialty Start Date End Date Cynthia Hernandez MD [address] [place] [address] PCP - [employer] 08/09/20 Cynthia Hernandez MD [address] [place] [address] PCP - General Family Medicine 02/05/23 12/28/23 Mariam Glasgow MD [address] [place] [address] PCP - General Geriatric Medicine 12/29/23 01/17/24 Cynthia Hernandez MD [address] [facility] [place] [address] PCP - General Family Medicine 01/18/24 Libby Ward NP [address] [facility] [place] [address] Nurse Practitioner Family Medicine 02/05/23 documented as of this encounter
--- OUTSIDE RECORDS SUMMARY | 2025-03-23 19:19 | XMS_ITS | Encounter Summary ---
Author Organization [facility] Address [address] [place] [address] Care Team Providers Care Records Assistant Name Role Phone Cynthia Hernandez MD Unavailable [phone] Cynthia Hernandez MD Primary Care Provider [phone] Libby Ward NP Unavailable [phone] Mariam Glasgow MD Primary Care Provider Cynthia Hernanedz MD Primary Care Provider [phone] Encounter Details Date Type Department Care Team (Late st Contact Info) Description 10/13/2023 Abstract [facility] [address] [place] [address] Cynthia Hernandez MD [address] [place] [address] Social History Tobacco Use Types [...] documented as of this encounter Care Teams Records Assistant Relationship Specialty Start Date End Date Cynthia Hernandez MD [address] [place] [address] PCP - [employer] 08/09/20 Cynthia Hernandez MD [address] [place] [address] PCP - General Family Medicine 02/05/23 12/28/23 Mariam Glasgow MD [address] [place] [address] PCP - General Geriatric Medicine 12/29/23 01/17/24 Cynthia Hernandez MD [address] [place] [address] PCP - General Family Medicine 01/18/24 Libby Ward NP [address] [facility] [place] [address] Nurse Practitioner Family Medicine 02/05/23 documented as of this encounter
--- OUTSIDE RECORDS SUMMARY | 2025-03-23 19:19 | XMS_ITS | Encounter Summary ---
Author Organization [facility] Address [address] [facility] [place] [address] Care Team Providers Care Check Airman Name Role Phone Cynthia Hernandez MD Unavailable [phone] Libby Ward NP Unavailable [phone] Cynthia Hernandez MD Primary Care Provider [phone] Encounter Details Date Type Department Care Team (Late st Contact Info) Description 04/03/2024 Abstract [facility] Family Medicine [address] [place] [address] Cynthia Hernandez MD [address] [place] [address] Social History Tobacco Use Types [...] documented as of this encounter Care Teams Check Airman Relationship Specialty Start Date End Date Cynthia Hernandez MD [address] [facility] [place] [address] PCP - Aet 08/09/20 Cynthia Hernandez MD [address] [facility] [place] [address] PCP - General Family Medicine 01/18/24 Libby Ward NP [address] [facility] [place] [address] Nurse Practitioner Family Medicine 02/05/23 documented as of this encounter
--- OUTSIDE RECORDS SUMMARY | 2025-03-23 19:19 | XMS_ITS | Encounter Summary ---
Author Organization [facility] Address [address] [facility] [place] [address] Care Team Providers Care Contract Associate Name Role Phone Cynthia Hernandez MD Unavailable Cynthia Hernandez MD Primary Care Provider Libby Ward NP Unavailable [phone] Mariam Glasgow MD Primary Care Provider [phone] Cynthia Hernandez MD Primary Care Provider [phone] Encounter Details Date Type Department Care Team (Late st Contact Info) Description 10/12/2023 [facility] [place] [facility] [address] [place] [address] Cynthia Hernandez MD [address] [place] [address] Social History Tobacco Use Types [...] documented as of this encounter Care Teams Contract Associate Relationship Specialty Start Date End Date Cynthia Hernandez MD [address] [place] [address] PCP - Aetna 08/09/20 Cynthia Hernandez MD [address] [place] [address] PCP - General Family Medicine 02/05/23 12/28/23 Mariam Glasgow MD [address] [place] [address] PCP - General Geriatric Medicine 12/29/23 01/17/24 Cynthia Hernandez MD [address] [place] [address] PCP - General Family Medicine 01/18/24 Libby Ward NP [address] [facility] [place] [address] Nurse Practitioner Family Medicine 02/05/23 documented as of this encounter
--- OUTSIDE RECORDS SUMMARY | 2025-03-23 19:19 | XMS_ITS | Encounter Summary ---
Author Organization [facility] Address [address] [place] [address] Care Team Providers Care Courier Name Role Phone Cynthia Leong MD Unavailable [phone] Cynthia Leong MD Primary Care Provider [phone] Libby Ward NP Unavailable [phone] Mariam Glasgow MD Primary Care Provider Cynthia Leong MD Primary Care Provider [phone] Encounter Details Date Type Department Care Team [...] AM EDT Narrative 10/26/2023 8:21 [place] [address] XRay Report Signed Patient: YVONNE LIZ MR#: [id number] : 1945 Acct:[id number] Age/Sex: 77 / F ADM Date: 10/25/23 Loc: EC Attending Dr: Charles Garrido M.D. Ordering Physician: Charles Garrido M.D. Date of Service: 10/25/23 Procedure(s): XR hip RT 2V w/ pelvis Accession Number(s): [id number] cc: Charles Garrido M.D.; CYNTHIA LEONG [address] [address] Patient Name: YVONNE LIZ MRN: [id number] date: 1945 Sex: F Assigned Patient Location: EC Current Patient Location: Accession/Order Number: [id number] Exam Date: 10/25/2023 11:11 Report Date: 10/26/2023 [...] M.D. Signed By: 10/26/23820 DD/ 7 TD/TT: Microsoft Bi Developer: Procedure Note Radiology, Radiologist, MD - 10/26/2023 [place] [address] XRay Report Signed Patient: LAMONT LIZ#: [id number] : 1945cct:[id number] Age/Sex: 77 / FADM Date: 10/25/23 Loc: EC Attending Dr: Charles Garrido M.D. Ordering Physician: Charles Garrido M.D. Date of Service: 10/25/23 Procedure(s): XR hip RT 2V w/ pelvis Accession Number(s): [id number] cc: Charles Garrido M.D.; CYNTHIA LEONG [place] [address] Patient Name: YVONNE LIZ MRN: [id number] date: 1945 Sex: F Assigned Patient Location: Current Patient Location: Accession/Order Number: [id number] Exam Date: 10/25/2023 11:11 Report Date: 10/26/2023 [...] Esteban M.D. Signed By:10/26/23820 DD/ 7 TD/TT: Microsoft Bi Developer: us Generic External Data Provider IMG XR PROCEDURES Final Result documented in this encounter Visit Diagnoses Not on filedocumented in this encounter Additional Health Concerns Assessment Noted Time PHQ-9 Depression Total Score: 12 024 2:11 PM EST documented as of this encounter Care Teams Courier Relationship Specialty Start Date End Date Cynthia Leong MD [address] [place] [address] PCP - Aetna 08/09/20 Cynthia Leong MD [address] [place], [place] [address] PCP - General Family Medicine 02/05/23 12/28/23 Mariam Glasgow MD [address] [place] [address] PCP - General Geriatric Medicine 12/29/23 01/17/24 Cynthia Leong MD [address] [place], [place] [address] PCP - General Family Medicine 01/18/24 Libby Ward NP [address] [place] [address] Nurse Practitioner Family Medicine 02/05/23 documented as of this encounter
--- OUTSIDE RECORDS SUMMARY | 2025-03-23 19:19 | XMS_ITS | Encounter Summary ---
Author Organization [facility] Address [address] [facility] [place] [address] Care Team Providers Care Manager Shell Name Role Phone Cynthia Hernandez MD Unavailable Cynthia Hernandez MD Primary Care Provider Libby Ward NP Unavailable [phone] Mariam Glasgow MD Primary Care Provider Cynthia Hernandez MD Primary Care Provider [phone] Encounter Details Date Type Department Care Team (Late st Contact Info) Description 10/10/2023 [facility] [place] [facility] [address] [place] [address] Cynthia Hernandez MD [address] [place] [address] Social History Tobacco Use Types [...] documented as of this encounter Care Teams Manager Shell Relationship Specialty Start Date End Date Cynthia Hernandez MD [address] [place] [address] PCP - Aetna 08/09/20 Cynthia Hernandez MD [address] [place] [address] PCP - General Family Medicine 02/05/23 12/28/23 Mariam Glasgow MD [address] [place] [address] PCP - General Geriatric Medicine 12/29/23 01/17/24 Cynthia Hernandez MD [address] [place] [address] PCP - General Family Medicine 01/18/24 Libby Ward NP [address] [facility] [place] [address] Nurse Practitioner Family Medicine 02/05/23 documented as of this encounter
--- OUTSIDE RECORDS SUMMARY | 2025-03-23 19:19 | XMS_ITS | Encounter Summary ---
Author Organization [facility] Address [address] [facility] [place] [address] Care Team Providers Care Manager Servicing Name Role Phone Cynthia Hernandez MD Unavailable [phone] Cynthia Hernandez MD Primary Care Provider [phone] Libby Ward NP Unavailable [phone] Mariam Glasgow MD Primary Care Provider Cynthia Hernandez MD Primary Care Provider [phone] Encounter Details Date Type Department Care Team (Late st Contact Info) Description 10/10/2023 Abstract [facility] [place] [facility] [address] [place] [address] Cynthia Hernandez MD [address] [place] [address] Social History Tobacco Use Types [...] as of this encounter Care Teams Manager Servicing Relationship Specialty Start Date End Date Cynthia Hernandez MD [address] [place] [address] PCP - Aetna 08/09/20 Cynthia Hernandez MD [address] [place] [address] PCP - General Family Medicine 02/05/23 12/28/23 Mariam Glasgow MD [address] [place] [address] PCP - General Geriatric Medicine 12/29/23 01/17/24 Cynthia Hernandez MD [address] [place] [address] PCP - General Family Medicine 01/18/24 Libby Ward NP [address] [facility] [place] [address] Nurse Practitioner Family Medicine 02/05/23 documented as of this encounter
--- OUTSIDE RECORDS SUMMARY | 2025-03-23 19:19 | XMS_ITS | Encounter Summary ---
Author Organization [facility] Address [address] [facility] [place] [address] Care Team Providers Care Asphalt Machine Operator Name Role Phone Cynthia Hernandez MD Unavailable Libby Ward NP Unavailable [phone] Cynthia Hernandez MD Primary Care Provider Encounter Details Date Type Department Care Team (Late st Contact Info) Description 01/05/2025 [facility] [address] [place] [address] Cynthia Hernandez MD [address] [place], [place] [address] Vitamin B12, Protein electrophoresis, serum, TSH W/REFLEX TO FT4, Additional followed-up results: 7 Social History Tobacco Use Types Packs/Day Years [...] Miscellaneous Notes * Telephone Encounter - Cynthia Mcdonald MA - 01/16/2025 2:51 PM EDT Spoke her jesse, and she is still in the hospital, [facility] soon as the insurance responds to them. * Telephone Encounter - Cynthia Mcdonald MA - 01/16/2025 2:51 PM EDT ----- Message from Dr. 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 I would like for herto see Dr Mika Grady for evaluation. She is currently in [facility] after having another fall. Please call and talk to her , Jesse. ----- Message ----- From: [employer] [facility] Results In Sent: 01/04/2025 10:56 AM EDT To: Cynthia Hernandez MD documented in this encounter Plan of Treatment Not on file documented as of this encounter Visit Diagnoses Not on filedocumented in this encounter Additional Health Concerns Assessment Noted Time PHQ-9 Depression Total Score: 0 12/30/19 9:00 AM EDT documented as of this encounter Care Teams Asphalt Machine Operator Relationship Specialty Start Date End Date Cynthia Hernandez MD [address] [place] [address] PCP - Aetna 08/09/20 Cynthia Hernandez MD [address] [place], [place] [address] PCP - General Family Medicine 01/18/24 Libby Ward NP [address] [facility] [place] [address] Nurse Practitioner Family Medicine 02/05/23 documented as of this encounter
--- OUTSIDE RECORDS SUMMARY | 2025-03-23 19:19 | XMS_ITS | Encounter Summary ---
Author Organization [facility] Address [address] [facility] [place] [address] Care Team Providers Care Primary Care Pediatrician Name Role Phone Cynthia Hernandez MD Unavailable Cynthia Hernandez MD Primary Care Provider [phone] Libby Ward NP Unavailable [phone] Mariam Glasgow MD Primary Care Provider Cynthia Hernandez MD Primary Care Provider [phone] Encounter Details Date Type Department Care Team (Late st Contact Info) Description 10/08/2023 Abstract [facility] [place] [facility] [address] [place] [address] Cynthia Hernandez MD [address] [place] [address] Social History Tobacco Use [...] of this encounter Care Teams Primary Care Pediatrician Relationship Specialty Start Date End Date Cynthia Hernandez MD [address] [place] [address] PCP - Aetna 08/09/20 Cynthia Hernandez MD [address] [place] [address] PCP - General Family Medicine 02/05/23 12/28/23 Mariam Glasgow MD [address] [place] [address] PCP - General Geriatric Medicine 12/29/23 01/17/24 Cynthia Hernandez MD [address] [place] [address] PCP - General Family Medicine 01/18/24 Libby Ward NP [address] [facility] [place] [address] Nurse Practitioner Family Medicine 02/05/23 documented as of this encounter
--- OUTSIDE RECORDS SUMMARY | 2025-03-23 19:19 | XMS_ITS | Encounter Summary ---
Author Organization [facility] Address [address] [place] [address] Care Team Providers Care Test Center Manager Name Role Phone Cynthia Hernandez MD Unavailable Cynthia Hernandez MD Primary Care Provider [phone] Libby Ward NP Unavailable [phone] Mariam Glasgow MD Primary Care Provider Cynthia Hernandez MD Primary Care Provider Encounter Details Date Type Department Care Team (Late st Contact Info) Description 10/20/2023 Abstract [facility] Medicine [address] [place] [address] Bk Brown MD [address] [facility] [address] [place] [address] Social History Tobacco Use Types Packs/Day Years [...] documented as of this encounter Care Teams Test Center Manager Relationship Specialty Start Date End Date Cynthia Hernandez MD [address] [place] [address] PCP - Aetna 08/09/20 Cynthia Hernandez MD [address] [place] [address] PCP - General Family Medicine 02/05/23 12/28/23 Mariam Glasgow MD [address] [place] [address] PCP - General Geriatric Medicine 12/29/23 01/17/24 Cynthia Hernandez MD [address] [facility] [place] [address] PCP - General Family Medicine 01/18/24 Libby Ward NP [address] [facility] [place] [address] Nurse Practitioner Family Medicine 02/05/23 documented as of this encounter
--- OUTSIDE RECORDS SUMMARY | 2025-03-23 19:19 | XMS_ITS | Encounter Summary ---
Author Organization [facility] Address [address] [facility] [place] [address] Care Team Providers Care Database Design Analyst Name Role Phone Cynthia Hernandez MD Unavailable Cynthia Hernandez MD Primary Care Provider Libby Ward NP Unavailable [phone] Mariam Glasgow MD Primary Care Provider Cynthia Hernandez MD Primary Care Provider [phone] Encounter Details Date Type Department Care Team (Late st Contact Info) Description 10/10/2023 Orders Only [facility] Family Medicine [address] [place] [address] Cynthia Hernandez MD [address] [place], [place] [address] Social History Tobacco Use Types Packs/Day Years [...] documented as of this encounter Care Teams Database Design Analyst Relationship Specialty Start Date End Date Cynthia Hernandez MD [address] [place] [address] PCP - Aetna 08/09/20 Cynthia Hernandez MD [address] [place] [address] PCP - General Family Medicine 02/05/23 12/28/23 Mariam Glasgow MD [address] [place] [address] PCP - General Geriatric Medicine 12/29/23 01/17/24 Cynthia Hernandez MD [address] [place] [address] PCP - General Family Medicine 01/18/24 Libby Ward NP [address] [facility] [place] [address] Nurse Practitioner Family Medicine 02/05/23 documented as of this encounter
--- OUTSIDE RECORDS SUMMARY | 2025-03-23 19:20 | XMS_ITS | Encounter Summary ---
Author Organization [facility] Address [address] [facility] [place] [address] Care Team Providers Care Senior Information Security Engineer Name Role Phone Cynthia Hernandez MD Unavailable [phone] Lbiby Ward NP Unavailable [phone] Cynthia Hernandez MD Primary Care Provider [phone] Encounter Details Date Type Department Care Team (Late st Contact Info) Description 01/07/2025 Abstract [facility] Family Medicine [address] [place] [address] Cynthia Hernandez MD [address] [place] [address] Social History Tobacco Use Types [...] as of this encounter Care Teams Senior Information Security Engineer Relationship Specialty Start Date End Date Cynthia Hernandez MD [address] [facility] [place] [address] PCP - Aet 08/09/20 Cynthia Hernandez MD [address] [facility] [place] [address] PCP - General Family Medicine 01/18/24 Libby Ward NP [address] [facility] [place] [address] Nurse Practitioner Family Medicine 02/05/23 documented as of this encounter
--- OUTSIDE RECORDS SUMMARY | 2025-03-23 19:20 | XMS_ITS | Encounter Summary ---
Author Organization [facility] Address [address] [facility] [place] [address] Care Team Providers Care Test Developer Name Role Phone Cynthia Hernandez MD Unavailable Cynthia Hernandez MD Primary Care Provider [phone] Libby Ward NP Unavailable [phone] Mariam Glasgow MD Primary Care Provider [phone] Cynthia Hernandez MD Primary Care Provider [phone] Encounter Details Date Type Department Care Team (Late st Contact Info) Description 03/01/2023 [facility] [address] [place] [address] [place] [id number] Sarah Gomes NP Social History Tobacco Use [...] on filedocumented in this encounter Care Teams Test Developer Relationship Specialty Start Date End Date Cynthia Hernandez MD [address] [facility] [place], [place] [address] PCP - Aet 08/09/20 Cynthia Hernandez MD [address] [facility] [place] [address] PCP - General Family Medicine 02/05/23 12/28/23 Mariam Glasgow MD [address] [place] [address] PCP - General Geriatric Medicine 12/29/23 01/17/24 Cynthia Hernandez MD [address] [facility] [place] [address] PCP - General Family Medicine 01/18/24 Libby Ward NP [address] [facility] [place], [place] [address] Nurse Practitioner Family Medicine 02/05/23 documented as of this encounter
--- OUTSIDE RECORDS SUMMARY | 2025-03-23 19:20 | XMS_ITS | Clinical Summary ---
Author Organization [facility] Address [address] [place] [address] Care Team Providers Care Forensic Economist Name Role Phone Cynthia Hernandez MD Primary Care Provider [phone] Allergies No known active allergies Medications OMEPRAZOLE [...] Vaccine (1 - 1-dose 75+ series) 12/28/2018 Advance Directive Discussion 08/09/2024 Influenza Vaccine (#1) 2025 Procedures Procedure Name Priority Date/Time Associated Diagnosis Comments COMPREHENSIVE METABOLIC PANEL Routine 12/18/2013 10:08 AM EDT Pancytopenia (HCC) from Last 3 Months or Most Recently Relevant to Health Maintenance Results * (ABNORMAL) COMP METABOLIC PANEL (12/18/2013 10:08 AM EDT) Protein, Total 6.9 6.0 - 8.4 g/dL [facility] Albumin 3.9 3.5 - 5.0 g/dL [facility] Calcium 9.4 8.5 - 10.5 mg/dL [facility] Bilirubin, Total 0.3 0.0 - 1.5 mg/dL [facility] Alkaline Phosphatase 79 40 - 150 U/L [facility] AST 28 7 - 40 U/L [facility] Glucose 125(H) 65 - 100 mg/dL [facility] BUN 17 8 - 25 mg/dL [facility] Creatinine 0.92 0.70 - 1.40 mg/dL [facility] Sodium 142 132 - 148 mmol/L [facility] Potassium 3.7 3.5 - 5.0 mmol/L [facility] Chloride 106 98 - 110 mmol/L [facility] CO2 24 23 - 32 mmol/L [facility] Anion Gap 12 0 - 15 mmol/L [facility] ALT 23 0 - 45 U/L [facility] eGFR- >60 [facility] eGFR-All Other Races >60 . [facility] Comment: eGFR (Estimated GFR) Units of [...] 10:08 AM EDT 12/18/2013 10:13 AM EDT us [facility] Final Result [facility] [address] [place] [address] from Last 3 Months or Most Recently Relevant to Health Maintenance Insurance [employer] MEDICARE Care Teams Forensic Economist Relationship Specialty Start Date End Date Cynthia Hernandez MD [address] [place] [address] PCP - General Family Medicine 12/15/13
--- OUTSIDE RECORDS SUMMARY | 2025-03-23 19:20 | XMS_ITS | Encounter Summary ---
Author Organization [facility] Address [address] [facility] [place] [address] Care Team Providers Care Collections Clerk Name Role Phone Cynthia Hernandez MD Unavailable Libby Ward NP Unavailable [phone] Cynthia Hernandez MD Primary Care Provider [phone] Encounter Details Date Type Department Care Team (Late st Contact Info) Description 02/16/2025 Orders Only [facility] Family Medicine [address] [place] [address] Cynthia Hernandez MD [address] [place], [place] [phone] Primary insomnia (Primary Dx) Social History Tobacco Use Types Packs/Day Years [...] of this encounter Visit Diagnoses Diagnosis Primary insomnia- Primary Persistent disorder of initiating or maintaining sleep documented in this encounter Additional Health Concerns Assessment Noted Time PHQ-9 Depression Total Score: 0 12/30/19 25 9:00 AM EDT documented as of this encounter Care Teams Collections Clerk Relationship Specialty Start Date End Date Cynthia Hernandez MD [address] [place] [address] PCP - Aet 08/09/20 Cynthia Hernandez MD [address] [place] [address] PCP - General Family Medicine 01/18/24 Libby Ward NP [address] [place] [address] Nurse Practitioner Family Medicine 02/05/23 documented as of this encounter
--- OUTSIDE RECORDS SUMMARY | 2025-03-23 19:20 | XMS_ITS | Encounter Summary ---
Author Organization [facility] Address [address] [facility] [place] [address] Care Team Providers Care Bathroom Tiling Professional Name Role Phone Cynthia Hernandez MD Unavailable Libby Ward NP Unavailable [phone] Cynthia Hernandez MD Primary Care Provider [phone] Encounter Details Date Type Department Care Team (Late st Contact Info) Description 01/14/2025 Abstract [facility] Family Medicine [address] [place] [address] Cynthia Hernandez MD [address] [place] [address] Social History Tobacco Use Types [...] documented as of this encounter Care Teams Bathroom Tiling Professional Relationship Specialty Start Date End Date Cynthia Hernandez MD [address] [facility] [place] [address] PCP - Aet 08/09/20 Cynthia Hernandez MD [address] [facility] [place] [address] PCP - General Family Medicine 01/18/24 Libby Ward NP [address] [facility] [place] [address] Nurse Practitioner Family Medicine 02/05/23 documented as of this encounter
--- OUTSIDE RECORDS SUMMARY | 2025-03-23 19:20 | XMS_ITS | Encounter Summary ---
Author Organization [facility] Address [address] [place] [address] Care Team Providers Care Septic Pump Truck Driver Name Role Phone Cynthia Hernandez MD Unavailable [phone] Libby Ward NP Unavailable [phone] Mariam Glasgow MD Primary Care Provider Cynthia Hernandez MD Primary Care Provider Encounter Details Date Type Department Care Team (Late st Contact Info) Description 01/06/2024 Orders Only [facility] Internal Medicine [address] [place] [address] Mariam Glasgow MD [address] [place] [address] Social History Tobacco Use Types [...] documented as of this encounter Care Teams Septic Pump Truck Driver Relationship Specialty Start Date End Date Cynthia Hernandez MD [address] [facility] [place], [place] [address] PCP - Aet[employer] 08/09/20 Mariam Glasgow MD [address] [place] [address] PCP - General Geriatric Medicine 12/29/23 01/17/24 Cynthia Hernandez MD [address] [facility] [place], [place] [address] PCP - General Family Medicine 01/18/24 Libby Ward NP [address] [facility] [place], [place] [address] Nurse Practitioner Family Medicine 02/05/23 documented as of this encounter
--- OUTSIDE RECORDS SUMMARY | 2025-03-23 19:20 | XMS_ITS | Encounter Summary ---
Author Organization [facility] Address [address] [facility] [place] [address] Care Team Providers Care Business Development Director Name Role Phone Cynthia Hernandez MD Unavailable Libby Ward NP Unavailable [phone] Cynthia Hernandez MD Primary Care Provider [phone] Encounter Details Date Type Department Care Team (Late st Contact Info) Description 11/30/2024 Abstract [facility] Family Medicine [address] [place] [address] Cynthia Hernandez MD [address] [place] [address] Social History Tobacco Use Types [...] documented as of this encounter Care Teams Business Development Director Relationship Specialty Start Date End Date Cynthia Hernandez MD [address] [facility] [place] [address] PCP - [employer] 08/09/20 Cynthia Hernandez MD [address] [facility] [place] [address] PCP - General Family Medicine 01/18/24 Libby Ward NP [address] [facility] [place] [address] Nurse Practitioner Family Medicine 02/05/23 documented as of this encounter
--- OUTSIDE RECORDS SUMMARY | 2025-03-23 19:20 | XMS_ITS | Encounter Summary ---
Author Organization [facility] Address [address] [facility] [place] [address] Care Team Providers Care Polysomnograph Tech Name Role Phone Cynthia Hernandez MD Unavailable Cynthia Hernandez MD Primary Care Provider Libby Ward NP Unavailable [phone] Mariam Glasgow MD Primary Care Provider Cynthia Hernandez MD Primary Care Provider [phone] Encounter Details Date Type Department Care Team (Late st Contact Info) Description 10/13/2023 Abstract [facility] [address] [place] [address] Cynthia Hernandez MD [address] [place] [address] Social History Tobacco Use Types [...] documented as of this encounter Care Teams Polysomnograph Tech Relationship Specialty Start Date End Date Cynthia Hernandez MD [address] [place] [address] PCP - [employer] 08/09/20 Cynthia Hernandez MD [address] [place] [address] PCP - General Family Medicine 02/05/23 12/28/23 Mariam Glasgow MD [address] [place] [address] PCP - General Geriatric Medicine 12/29/23 01/17/24 Cynthia Hernandez MD [address] [place] [address] PCP - General Family Medicine 01/18/24 Libby Ward NP [address] [facility] [place] [address] Nurse Practitioner Family Medicine 02/05/23 documented as of this encounter
--- OUTSIDE RECORDS SUMMARY | 2025-03-23 19:20 | XMS_ITS | CCD ---
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 Operator Name Role Phone Ap Holland Unavailable FABIENNE Redding Primary Care Provider MD Ap Holland S Attending Provider Cynthia Leong MD Unavailable Ed PACE, Libby Unavailable Cynthia Leong MD Primary Care Provider Gilisa AVALOS, Andrius Vyttano Attending Unavailable Giedraitis , Andrius Vytautas Attending Unavailable Giedraitis , Andrius Vytautleda Attending Unavailable Giedraitis , Andrius Vytautas Attending Unavailable Giedraitis , Andrius Vytautas Attending Unavailable Wilman Wise MD Attending Provider Ziggy White DO Attending Provider NO FAMILY, PHYSICIAN Primary Care Provider Unava ilable Cynthia Umanzor MD Primary Care Pr ovider Cynthia Umanzor MD Referring Provi keerthi [place] AVALOS, toni Lau Attending Provider ROSLYN REDDING Attending Unavailab CYNTHIA López Attending Unavailable SHIVA FRANKLIN Attending Unavailable GIEDRAITIS, ANDRIUS Referring Unavailable CLARA RICHTER Attending Unavailable GIEDRAITIS, ANDRIUS Referring Unavailable KELBLEY, CLARA Attending Unavailable GIEDRAITIS, ANDRIUS Referring Unavailable KELBLEY, CLARA Attending Unavailable GIEDRAITIS, ANDRIUS Referring Unavailable KELBLEY, CLARA Attending Unavailable GIEDRAITIS, ANDRIUS Referring Unavailable KELBLEY, CLARA Attending Unavailable GIEDRAITIS, ANDRIUS Referring Unavailable SALO, CYNTHIA Attending Unavailable SHIVA FRANKLIN Attending Unavailable GIEDRAITIS, ANDRIUS Referring Unavailable KELBLEY, CLARA Attending Unavailable GIEDRAITIS, ANDRIUS Referring Unavailable SALO, CYNTHIA Attending Unavailable SALO, CYNTHIA Referring Unavailable SALO, CYNTHIA Referring Unavailable SALO, CYNTHIA Attending Unavailable DIVINA PARSON A Attending Unavailable CLARK, QIAN L Referring Unavailable LOPEZ, ALANA Attending Unavailable SALO, CYNTHIA Referring Unavailable NONI LANE Attending Unavailable CLARK, QIAN L Referring Unavailable [...] L Referring Unavailable LOPEZ, ALANA Attending Unavailable CASTLELANO, DIVINA L Referring Unavailable STEFANO, MARIANO Attending Unavailable CASTELLANO, DIVINA L Referring Unavailable STEFANO, MARIANO Attending Unavailable CASTELLANO, DIVINA L Referring Unavailable STEFANO, MARIANO Attending Unavailable CASTELLANO, DIVINA L Referring Unavailable LOPEZ, ALANA Attending Unavailable CASTELLANO, DIVINA L Referring Unavailable STEFANO, MARIANO Attending Unavailable CASTELLANO, DIVINA L Referring Unavailable ALANA LOPEZ Attending Unavailable DIVINA CASTELLANO Referring Unavailable Ziggy White Admitting Unavailable Ziggy White Attending Unavailable NO FAMILY, PHYSICIAN Primary Care Unavailable NO FAMILY, PHYSICIAN Primary Care Unavailable Ziggy White Admitting Unavailable Ziggy White Attending Unavailable Cynthia Umanzor Primary Care Un available Cynthia Umanzor Referring Un available Cory Barahona Admitting UnavailCory Ruggiero Attending Unavailabl e Wilman Wise Admitting Unavailable Wilman Wise Attending Unavailable Allergies Allergy Classification Reported Allergen(s) Allergy Type Date of Onset Reaction(s) Facility (7 sources) Pollen Drug allergy Unknown [place] [facility] Other (20 sources) Octacosanol Propensity to adverse reactions 3 [facility] (1 source) Pollen Drug allergy (disorder) 5 [facility] Repository Medications Current Medications Medication Drug [...] Do not crush, chew, or split. Active amLODIPine 5 mg oral tablet (5 sources) Dihydropyridine Calcium Channel Abhishek amLODIPine (Norvasc) 5 MG tablet Take by mouth Daily Active amoxicillin 500 mg oral tablet (6 sources) Penicillin-class Antibacterial Start: 02-11-2025 take 4 tablets by mouth every hour amoxicillin (Amoxil) 500 MG tablet TAKE 4 TABLETS BY MOUTH 1 HOUR PRIOR TO APPOINTMENT 02/11/2025 Active Start: 06-07-2024 End: 06-07-2024 take 4 tablets by mouth once, then take 1 tablet by mouth every hour amoxicillin (Amoxil) 500 MG tablet Indications: Need for antibiotic prophylaxis for dental procedure Take 4 tablets (2,000 mg) by mouth 1 time for 1 dose Take 1 hour prior to procedure 4 tablet 06/07/2024 06/07/2024 Active atorvastatin 10 mg oral tabl et (20 sources) HMG-CoA Reductase Inhibitor Start: 03-21-2024 End: 03-25-2025 take 1 tablet by celi th every twenty-four hours Atorvastatin Calcium 10 MG 1 tablet Oral ly Once a day Active calcitriol 0.05254 mg oral capsule (20 sources) Vitamin D3 [...] BY MOUTH PRIOR TO PROCEDURE 04/03/2024 Active docusate sodium 100 mg oral capsule (5 sources) take 1 capsule by mouth in the morning docusate sodium (Colace) 100 MG capsule Take 100 mg by mouth in the morning and 100 mg before bedtime. Active doxycycline hyclate 100 mg oral capsule [...] (Lexapro) 5 MG tablet Indications: Mild depression Take 1 tablet (5 mg) by mouth Daily 30 tablet 11 01/04/2024 Active fluticasone propionate 0.05 mg/actuat metered dose nasal spray (5 sources) Corticosteroid take 1 spray(s) nasal route once daily fluticasone (Flonase) 50 MCG/ACT nasal spray Administer 1 spray into each nostril Daily Shake gently. Before first use, prime pump. After use, clean tip and replace cap. Active 12 hr guaiFENesin 600 mg extended [...] mg oral tablet (20 sources) l-Thyroxine Start: Start: 09-07-2023 End: 12-15-2024 take 1 tablet by mouth before mealtime levothyroxine (Synthroid, Levoxyl) 75 MCG tablet Indications: Acquired hypothyroidism Take 1 tablet (75 mcg) by mouth in the morning. Take before meals. 90 tablet 1 12/15/2024 Active take 1 tablet by celi once daily in the morning Levothyroxine Sodium 75 MCG 1 tablet in the morning on an empty stomach Orally Once a day Active lidocaine 0.05 mg/mg medicated patch (7 sources) Antiarrhythmic, Amide Local Anesthetic Lidocaine 5 % 1 patch remove after 12 hours Externally Once a day Active lisinopril 5 mg oral tablet (20 sources) Angiotensin Converting Enzyme Inhibitor Start: 06-22-20 End: 06-22-20 Magnesium Oxide (5 sources) magnesium oxide (Mag-Ox) 400 mg tablet 400 mg Daily Active meclizine hydrochloride 25 mg chewable tablet [...] Start: 02-08-2024 take 1 tablet by celi every twelve hours for dizziness and dizziness Meclizine HCl 25 MG chewable tablet Indications: Dizziness Chew 25 mg every 12 (twelve) hours 60 tablet 1 02/08/2024 Active melatonin 5 mg oral capsule (5 sources) Melatonin 5 MG capsule Take by mouth Active 24 hr metoprolol succinate 25 mg extended release oral tablet (20 sources) beta-Adrenergic Abhishek Start: 01-29-2025 take 1 tablet by mouth every twenty-four hours Start: 12-07-2024 End: 12-15-2024 take 1 tablet by mouth every twenty-four hours in the morning metoprolol succinate XL (Toprol-XL) 25 MG 24 hr tablet Indications: Essential hypertension Take 1 tablet (25 mg) by mouth [...] 06/13/2024 Discontinued (Reorder) take 1 capsule by mo [facility] once daily Metoprolol Succinate 50 MG [...] capsule (20 sources) Proton Pump Inhibitor Start: 01-29-2025 Start: 01-25-2024 End: 12-15-2024 take 1 capsule by mouth once daily omeprazole (PriLOSEC) [address] capsule Indications: Gastroesophageal reflux disease without esophagitis Take 1 capsule (40 mg) by mouth Daily 90 capsule 1 12/15/2024 Active take 1 capsule by [facility] once daily Omeprazole 40 MG 1 capsule 30 minutes before morning meal Orally Once a day Active polyethylene glycol 3350 69067 mg powder for oral solution (5 sources) Osmotic Laxative polyethylene gl ycol, PEG, 3350 (Miralax) 17 g packet Take by mouth Active traZODone hydrochloride 50 mg oral tablet (7 sources) Serotonin Reuptake Inhibitor Start: 02-17-20 End: 02-17-20 26 take 1 mg by mouth once daily at bedtime as needed valACYclovir 1000 mg oral tablet (4 sources) Herpesvirus Nucleoside Analog DNA Polymerase Inhibitor, Herpes Simplex Virus Nucleoside Analog DNA Polymerase Inhibitor, Herpes Zoster Virus Nucleoside Analog DNA Polymerase Inhibitor Start: 12-30-19 End: 01-06-20 take 1 tablet by mouth in the [...] injectable solution (20 sources) Vitamin B12 Start: 11-19-19 24 End: 11-19-19 Cyanocobalamin (B-12 Compliance Injection) 1000 MCG/ML kit Indications: B12 deficiency Inject 1 mL as directed every 30 (thirty) days 1 kit 11 11/19/2023 11/18/2024 Active Completed/Discontinued Medications Medication Drug Class(es) Dates Sig (Normalized) Sig (Original) traMADol hydrochloride 50 mg oral tablet (20 sources) Opioid Agonist Start: 01-29-2025 End: 02-22-2025 Tramadol 50 mg tablet Discontinued MG PO January 29, 2025 12:00am February 22, 2025 9:08am Start: 06-15-2024 End: 10-06-2024 take 1 tablet [...] sources) Anemia; Translations: [Anemia, unspecified] 06-22-2024 Episodic Deficiency and other anemia (2 sources) Normocytic anemia; Translations: [Anemia, unspecified] 03-14-2025 Episodic Deficiency and other anemia (1 source) Anemia, unspecified; Translations: [Anemia, unspecified] Onset: 03-21-2025 Episodic Disorders of lipid metabolism (20 sources) Mixed hyperlipidemia; Translations: [Mixed hyperlipidemia] Onset: 10-15-2016 01-01-2023 Chronic Esophageal disorders (20 sources) Gastroesophageal reflux disease without esophagitis; Translations: [Gastro-esophageal reflux disease without esophagitis] Onset: 11-24-2017 05-17-2024 Chronic Essential hypertension (20 sources) Essential hypertension; Translations: [Essential (primary) hypertension] Onset: 10-15-2016 01-01-2023 Chronic Fracture of upper limb (20 sources) Fracture of upper end of humerus; Translations: [Unspecified fracture of upper end of left humerus, initial encounter for closed fracture] Onset: 02-19-2025 01-29-2025 Episodic Genitourinary symptoms and ill-defined conditions (2 sources) Dysuria; Translations: [Dysuria] 05-18-2024 Episodic Miscellaneous mental health disorders (1 source) Primary insomnia; Translations: [Primary insomnia] 03-13-2025 Chronic Neoplasms of unspecified nature or uncertain behavior (10 sources) Monoclonal gammopathy (clinical); Translations: [Monoclonal gammopathy] Onset: 03-21-2025 02-14-2025 Chronic Nutritional deficiencies (20 sources) Vitamin D deficiency; [...] limbs] 12-07-2024 Episodic Other connective tissue disease (12 sources) Recurrent falls ; Translations: [Repeated falls] 12-07-2024 Episodic Other connective tissue disease (4 sources) Pain in bilateral legs; Translations: [Pain in right leg] 02-14-2025 Episodic Other ear and sense organ disorders [...] source) Pain in right hip Episodic Other non-traumatic joint disorders (1 source) Pain in left shoulder; Translations: [Pain in left shoulder] Onset: 01-29-2025 Episodic Other non-traumatic joint disorders (1 source) Pain in left wrist; Translations: [Pain in left wrist] Onset: 01-29-2025 Episodic Other upper respiratory disease (2 sources) Nasal congestion; Translations: [Nasal congestion] 09-26-2024 Episodic Other upper respiratory infections (4 sources) Viral upper respiratory tract infection; Translations: [Acute upper respiratory infection, unspecified] 09-26-2024 Episodic Peripheral and visceral atherosclerosis (4 sources) Intermittent claudication; Translations: [Peripheral vascular disease, unspecified] 02-14-2025 Chronic Pulmonary heart disease (2 sources) Pulmonary hypertension; Translations: [Pulmonary hypertension, unspecified] 10-07-2024 Chronic Spondylosis; intervertebral disc disorders; other back problems (20 sources) Solitary sacroiliitis; Translations: [Sacroiliitis, not elsewhere classified] Onset: 01-01-2023 Chronic Spondylosis; intervertebral disc disorders; other back problems (20 sources) Radiculopathy, lumbar region; Translations: [Lumbar radiculopathy] Episodic Thyroid disorders (20 sources) Hypothyroidism; Translations: [Hypothyroidism, unspecified] Onset: 05-11-2016 01-01-2023 Chronic Urinary tract infections (1 source) Acute cystitis; [...] Test Name Value Interpretation Reference Range Facility Copperon 03-14-2025 Copper 68 ug/dL Normal 80-158 [facility] Comment on above: Result Comment: This test was developed and its performance characteristics determined by [facility]. It has not been cleared or approved by the Food and Drug Administration. Detection Limit = 5 Performed at: [facility] [id number] Hand Tier: Gary Young MD, Phone: [phone] PERFORMED BY: [place] [address] PATHOLOGIST LADLE LINER HELPER MYNOR TRAN M.D. Performed By: #### F ER, [id number], FE and TIBC, LDH #### [address] #### CU #### [facility] , Ferritinon 03-14-2025 Ferritin [Mass/Vol] 180.3 ng/mL Normal 11.0-306.8 [facility] Comment on above: Performed By: #### F ER, [id number], FE and TIBC, LDH #### [place] [address] [place] #### CU #### [facility] , Iron and TIBC Profileon % Iron Saturation 33.8 % Normal 20-50 [facility] Comment on above: Performed By: #### F ER, [id number], FE and TIBC, LDH #### [place] [address] [place] #### CU #### [facility] , Iron [Mass/Vol] 106 ug/dL Normal 50-212 [facility] Comment on above: Performed By: #### F ER, [id number], FE and TIBC, LDH #### [place] [address] [place] #### CU #### [facility] , Total Iron Binding Capacity 314 ug/dL Normal 255-450 [facility] Comment on above: Performed By: #### F ER, [id number], FE and TIBC, LDH #### [address] #### CU #### [facility] , Transferrin [Mass/Vol] 224 mg/dL Normal 203-362 [facility] Comment on above: Performed By: #### F ER, [id number], FE and TIBC, LDH #### [address] #### CU #### [facility] , LDH Lactate Dehydrogenaseon 03-14-2025 LDH Lactate Dehydrogenase 174 U/L Normal 140-271 [facility] Comment on above: Performed By: #### F ER, [id number], FE and TIBC, LDH #### [address] #### CU #### [facility] , Vit. B12/Folate Profileon Cobalamin (Vitamin B12) [Mass/Vol] 186 pg/mL Normal 180-914 [facility] Comment on above: Performed By: #### F ER, [id number], FE and TIBC, LDH #### [place] [address] [place] #### CU #### [facility] , Folate 17.0 ng/mL Normal >5.9 [facility] Comment on above: Result Comment: Theresa te reference range: >5.9 ng/ml The WHO technical consultation on folate and vitamin b12 deficiencies has determined that folate concentrations less than 4 ng/ml are considered deficient. PERFORMED BY: [facility] [address] [facility] [place] [address] PATHOLOGIST LADLE LINER HELPER MYNOR TRAN M.D. Performed By: #### F ER, [id number], FE and TIBC, LDH #### [facility] [address] #### CU #### [facility] , MR LUMBAR SPINE WO CONTRASTo n 03-02-2025 MR LUMBAR SPINE WO CONTRAST EXAM: MR LUMBAR SPINE WO CONTRAST History: Low back pain. Claudication. Technique: Multiplanar multisequence MRI of the lumbar spine was obtained without intravenous contrast. Comparison: MRI of the lumbar spine January 20, 2023 Findings: The conus medullaris ends normally. Mild levocurvature. The vertebral body heights are well maintained. Mild chronic anterior wedge compression deformity of T12. There is no aggressive bone marrow signal abnormality. Disc desiccation and mild intervertebral disc height loss throughout the lumbar spine. Sacralization of L5 on the left. L1-L2: Small disc bulge. Mild facet arthropathy. Ligamentum flavum thickening. Mild spinal canal stenosis. Mild bilateral neural foraminal stenosis. L2-L3: Small disc bulge. Mild facet arthropathy. Ligamentum flavum thickening. Moderate to severe spinal canal stenosis. Mild left and moderate right neuroforaminal stenosis. L3-L4: Approximately 3 mm of anterolisthesis of L3 on L4 secondary to advanced facet arthropathy. Small disc bulge. Ligamentum flavum thickening. Severe spinal canal stenosis. Mild bilateral neuroforaminal stenosis. L4-L5: Minimal anterolisthesis of L4 on L5 secondary to advanced facet arthropathy. Small disc bulge. Moderate spinal canal stenosis. Mild left and moderate right neuroforaminal stenosis. L5-S1: No Simmie disc bulge. Mild facet arthropathy. No neuroforaminal or spinal canal stenosis. Visualized paravertebral soft tissues appear within normal limits. IMPRESSION: Degenerative changes of the lumbar spine as detailed. ELECTRONICALLY SIGNED BY: Zaki Berman, DO Normal Not Available VASC US ANKLE BRACHIAL INDEX (KWABENA) WITHOUT EXERCISEon 03-02-2025 VASC US ANKLE BRACHIAL INDEX (KWABENA) WITHOUT EXERCISE VASC US ANKLE BRACHIAL INDEX (KWABENA) WITHOUT EXERCISE CLINICAL HISTORY: Repeated falls. Peripheral vascular disease. Leg weakness. COMPARISON: None available. FINDINGS: RIGHT LEG: the brachial systolic pressure is 193, the posterior tibial ankle pressure is 135, the dorsalis pedis ankle pressure is unable to be obtained, and the digit pressure is 160. The ankle-brachial index at the posterior tibial artery is 0.7, with normal 1.0 or greater The toe-brachial index is 0.83, with normal 0.7 or greater. The plethysmography waveforms are mildly abnormal. LEFT LEG: the brachial systolic pressure is 193, the posterior tibial ankle pressure is 200, the dorsalis pedis ankle pressure is 199, and the digit pressure is 145. The ankle-brachial index at the posterior tibial artery is 1.0, with normal 1.0 or greater. The dorsalis pedis to brachial index is 1.0, with normal 1.0 or greater. The toe-brachial index is 0.75, with normal 0.7 or greater. The plethysmography waveforms are mildly abnormal. IMPRESSION: MODERATE DISEASE ON THE RIGHT ACCORDING TO THE ANKLE-BRACHIAL INDEX AT THE POSTERIOR TIBIAL ARTERY. NO EVIDENCE FOR SIGNIFICANT DISEASE ON THE LEFT. ELECTRONICALLY SIGNED BY: Tayo Steinberg MD Normal Not Available Beta 2 Microglobulin, Serumo n 02-28-2025 Beta 2 Microglobulin, Serum 3.0 mg/L Normal 0.6-2.4 [facility] Comment on above: Result Comment: [facility] Immulite 2000 Immunochemiluminometric assay (ICMA) Values obtained with different assay methods or kits cannot be used interchangeably. Results cannot be interpreted as absolute evidence of the presence or absence of malignant disease. Performed at: [address] [id number] Hand Tier: Gary Young MD, Phone: [phone] Performed By: #### C MP, CBC, LDH ####[facility] [address] [id number] [facility]#### SPE, B2-MICRO, SWATI SERUM, KAPPA ####[facility] , Complete Blood Count Auto Di ffon 02-28-2025 Basophils (Bld) [#/Vol] 0.0 10*3/uL Normal 0.0-0.2 [facility] Comment on above: Result Comment: PERF ORMED BY: [facility] [address] PATHOLOGIST LADLE LINER HELPER MYNOR TRAN M.D. Performed By: #### C MP, CBC, LDH ####[address]#### SPE, B2-MICRO, SWATI SERUM, KAPPA ####[facility] , Basophils/100 WBC (Bld) 0.8 % Normal . [facility] Comment on above: Performed By: #### C MP, CBC, LDH ####[address]#### SPE, B2-MICRO, SWATI SERUM, KAPPA ####[facility] , Eosinophils (Bld) [#/Vol] 0.1 10*3/uL Normal 0.0-0.45 [facility] Comment on above: Performed By: #### C MP, CBC, LDH ####[address]#### SPE, B2-MICRO, SWATI SERUM, KAPPA ####[facility] , Eosinophils/100 WBC (Bld) 3.1 % Normal . [facility] Comment on above: Performed By: #### C MP, CBC, LDH ####[address]#### SPE, B2-MICRO, SWATI SERUM, KAPPA ####[facility] , Erythrocyte distribution width (RBC) [Ratio] 13.2 % Normal 11.9-15.3 [facility] Comment on above: Performed By: #### C MP, CBC, LDH ####[place] [address] [place]#### SPE, B2-MICRO, SWATI SERUM, KAPPA ####[facility] , Hematocrit (Bld) [Volume fraction] 33.4 % Low 34.0-46.4 [facility] Comment on above: Performed By: #### C MP, CBC, LDH ####[address]#### SPE, B2-MICRO, SWATI SERUM, KAPPA ####[facility] , Hemoglobin (Bld) [Mass/Vol] 11.6 g/dL Low 11.8-15.4 [facility] Comment on above: Performed By: #### C MP, CBC, LDH ####[address]#### SPE, B2-MICRO, SWATI SERUM, KAPPA ####[facility] , Lymphocytes (Bld) [#/Vol] 0.9 10*3/uL Low 1.00-4.8 [facility] Comment on above: Performed By: #### C MP, CBC, LDH ####[address]#### SPE, B2-MICRO, SWATI SERUM, KAPPA ####[facility] , Lymphocytes/100 WBC (Bld) 22.4 % Normal . [facility] Comment on above: Performed By: #### C MP, CBC, LDH ####[address]#### SPE, B2-MICRO, SWATI SERUM, KAPPA ####[facility] , MCH (RBC) [Entitic mass] 34.3 pg Normal 24.7-34.3 [facility] Comment on above: Performed By: #### C MP, CBC, LDH ####[place] [address] [place]#### SPE, B2-MICRO, SWATI SERUM, KAPPA ####[facility] , MCV (RBC) [Entitic vol] 99.0 fL Normal 80-100 [facility] Comment on above: Performed By: #### C MP, CBC, LDH ####[address]#### SPE, B2-MICRO, SWATI SERUM, KAPPA ####[facility] , Mean Corpuscular HGB Conc 34.7 g/dL Normal 32.0-35.0 [facility] Comment on above: Performed By: #### C MP, CBC, LDH ####[address]#### SPE, B2-MICRO, SWATI SERUM, KAPPA ####[facility] , Monocytes (Bld) [#/Vol] 0.3 10*3/uL Normal 0.0-0.8 [facility] Comment on above: Performed By: #### C MP, CBC, LDH ####[address]#### SPE, B2-MICRO, SWATI SERUM, KAPPA ####[facility] , Monocytes/100 WBC (Bld) 8.1 % Normal . [facility] Comment on above: Performed By: #### C MP, CBC, LDH ####[address]#### SPE, B2-MICRO, SWATI SERUM, KAPPA ####[facility] , Neutrophils (Bld) [#/Vol] 2.6 10*3/uL Normal 1.8-7.7 [facility] Comment on above: Performed By: #### C MP, CBC, LDH ####[address]#### SPE, B2-MICRO, SWATI SERUM, KAPPA ####[facility] , Neutrophils/100 WBC (Bld) 65.6 % Normal . [facility] Comment on above: Performed By: #### C MP, CBC, LDH ####[address]#### SPE, B2-MICRO, SWATI SERUM, KAPPA ####[facility] , NRBC% 0.2 /100{WBC} Normal 0-0.5 [facility] Comment on above: Performed By: #### C MP, CBC, LDH ####[address]#### SPE, B2-MICRO, SWATI SERUM, KAPPA ####[facility] , Platelet mean volume (Bld) [Entitic vol] 8.1 fL Normal 6.3-10.7 [facility] Comment on above: Performed By: #### C MP, CBC, LDH ####[address]#### SPE, B2-MICRO, SWATI SERUM, KAPPA ####[facility] , Platelets (Bld) [#/Vol] 94 10*3/uL Low 150-450 [facility] Comment on above: Performed By: #### C MP, CBC, LDH ####[address]#### SPE, B2-MICRO, SWATI SERUM, KAPPA ####[facility] , RBC (Bld) [#/Vol] 3.38 10*6/uL Low 3.60-5.00 [facility] Comment on above: Performed By: #### C MP, CBC, LDH ####[address]#### SPE, B2-MICRO, SWATI SERUM, KAPPA ####[facility] , WBC (Bld) [#/Vol] 4.0 10*3/uL Normal 3.8-11.6 [facility] Comment on above: Performed By: #### C MP, CBC, LDH ####[address]#### SPE, B2-MICRO, SWATI SERUM, KAPPA ####[facility] , White Blood Count 4.0 [CFU]/mL Normal 3.8-11.6 [facility] Comment on above: Performed By: #### C MP, CBC, LDH ####[place] [address] [place]#### SPE, B2-MICRO, SWATI SERUM, KAPPA ####[facility] , Comprehensive Metabolic Pane mariah 02-28-2025 Albumin [Mass/Vol] 3.9 g/dL Normal 3.5-5.7 [facility] Comment on above: Performed By: #### C MP, CBC, LDH ####[address]#### SPE, B2-MICRO, SWATI SERUM, KAPPA ####[facility] , Albumin/Globulin [Mass ratio] 1.7 {ratio} Normal [facility] Comment on above: Performed By: #### C MP, CBC, LDH ####[place] [address] [place]#### SPE, B2-MICRO, SWATI SERUM, KAPPA ####[facility] , ALP [Catalytic activity/Vol] 110 U/L High 34-104 [facility] Comment on above: Performed By: #### C MP, CBC, LDH ####[address]#### SPE, B2-MICRO, SWATI SERUM, KAPPA ####[facility] , ALT [Catalytic activity/Vol] 9 U/L Normal 7-52 [facility] Comment on above: Performed By: #### C MP, CBC, LDH ####[place] [address] [place]#### SPE, B2-MICRO, SWATI SERUM, KAPPA ####[facility] , Anion gap [Moles/Vol] 8.8 mmol/L Normal 6.0-15.0 [facility] Comment on above: Performed By: #### C MP, CBC, LDH ####[place] [address] [place]#### SPE, B2-MICRO, SWATI SERUM, KAPPA ####[facility] , AST [Catalytic activity/Vol] 15 U/L Normal 13-39 [facility] Comment on above: Performed By: #### C MP, CBC, LDH ####[address]#### SPE, B2-MICRO, SWATI SERUM, KAPPA ####[facility] , Bilirubin [Mass/Vol] 0.6 mg/dL Normal 0.3-1.0 [facility] Comment on above: Performed By: #### C MP, CBC, LDH ####[address]#### SPE, B2-MICRO, SWATI SERUM, KAPPA ####[facility] , Calcium [Mass/Vol] 9.8 mg/dL Normal 8.6-10.3 [facility] Comment on above: Performed By: #### C MP, CBC, LDH ####[address]#### SPE, B2-MICRO, SWATI SERUM, KAPPA ####[facility] , Chloride [Moles/Vol] 105 mmol/L Normal 98-107 [facility] Comment on above: Performed By: #### C MP, CBC, LDH ####[address]#### SPE, B2-MICRO, SWATI SERUM, KAPPA ####[facility] , CO2 [Moles/Vol] 29.2 mmol/L Normal 21.0-31.0 [facility] Comment on above: Performed By: #### C MP, CBC, LDH ####[address]#### SPE, B2-MICRO, SWATI SERUM, KAPPA ####[facility] , Creatinine [Mass/Vol] 0.87 mg/dL Normal 0.60-1.20 [facility] Comment on above: Performed By: #### C MP, CBC, LDH ####[address]#### SPE, B2-MICRO, SWATI SERUM, KAPPA ####[facility] , Creatinine Clr Calc Pharmacy 43.79 Normal [facility] Comment on above: Performed By: #### C MP, CBC, LDH ####[address]#### SPE, B2-MICRO, SWATI SERUM, KAPPA ####[facility] , GFR/1.73 sq M.predicted MDRD (S/P/Bld) [Vol rate/Area] mL/min/{1.73_m2} Normal [facility] Comment on above: Performed By: #### C MP, CBC, LDH ####[address]#### SPE, B2-MICRO, SWATI SERUM, KAPPA ####[facility] , Globulin (S) [Mass/Vol] 2.3 g/dL Normal [facility] Comment on above: Performed By: #### C MP, CBC, LDH ####[address]#### SPE, B2-MICRO, SWATI SERUM, KAPPA ####[facility] , Glucose [Mass/Vol] 108 mg/dL High 70-100 [facility] Comment on above: Result Comment: [place] om Glucose Reference Range is dependent on time and content of last meal. Glucose of more than 200 mg/dL in a nonstressed, ambulatory subject supports the diagnosis of Diabetes Mellitus. ADA recommended reference range Performed By: #### C MP, CBC, LDH ####[address]#### SPE, B2-MICRO, SWATI SERUM, KAPPA ####[facility] , Potassium [Moles/Vol] 4.0 mmol/L Normal 3.5-5.1 [facility] Comment on above: Performed By: #### C MP, CBC, LDH ####[address]#### SPE, B2-MICRO, SWATI SERUM, KAPPA ####[facility] , Protein [Mass/Vol] 6.2 g/dL Low 6.4-8.9 [facility] Comment on above: Performed By: #### C MP, CBC, LDH ####[place] [address] [place]#### SPE, B2-MICRO, SWATI SERUM, KAPPA ####[facility] , Sodium [Moles/Vol] 139 mmol/L Normal 136-145 [facility] Comment on above: Performed By: #### C MP, CBC, LDH ####[place] [address] [place]#### SPE, B2-MICRO, SWATI SERUM, KAPPA ####[facility] , Urea nitrogen [Mass/Vol] 20 mg/dL Normal 7-25 [facility] Comment on above: Performed By: #### C MP, CBC, LDH ####[address]#### SPE, B2-MICRO, SWATI SERUM, KAPPA ####[facility] , Fr [place]/Lambda LTC Urineon 02-28-2025 Free [place] Light Chains, Urine 26.86 mg/L Normal 1.17-86.46 [facility] Comment on above: Performed By: #### F R KAPPA+L, UPE 24HR #### [facility] , Free Lambda Lt Chains, Urine 3.39 mg/L Normal 0.27-15.21 [facility] Comment on above: Performed By: #### F R KAPPA+L, UPE 24HR #### [facility] , [place]/Lambda Ratio 24 Hr Ur 7.92 Normal 1.83-14.26 [facility] Comment on above: Result Comment: Perf ormed at: - [facility] [address], [place], [place] [id number] Hand Tier: Gary Young MD, Phone: [phone] Performed By: #### F R KAPPA+L, UPE 24HR #### [facility] , Free K+L LT Chains, Qn, Son 02-28-2025 Free [place] Light Chains, S 20.3 mg/L Normal 3.3-19.4 [facility] Comment on above: Performed By: #### C MP, CBC, LDH ####[address]#### SPE, B2-MICRO, SWATI SERUM, KAPPA ####[facility] , Free Lambda Light Chains, S 14.6 mg/L Normal 5.7-26.3 [facility] Comment on above: Performed By: #### C MP, CBC, LDH ####[address]#### SPE, B2-MICRO, SWATI SERUM, KAPPA ####[facility] , [place]/Lambda Ratio, S 1.39 Normal 0.26-1.65 [facility] Comment on above: Result Comment: Perf ormed at: - [facility] [address] [id number] Hand Tier: Ludwig Stearns PhD, Phone: [phone] PERFORMED BY: [facility] [address] [place] [address] PATHOLOGIST LADLE LINER HELPER MYNOR TRAN M.D. Performed By: #### C MP, CBC, LDH ####[address]#### SPE, B2-MICRO, SWATI SERUM, KAPPA ####[facility] , Immunofixation,Serumon 02-28 Immunofixation, Serum Comment Critically abnormal . [facility] Comment on above: Result Comment: Immu nofixation shows IgG monoclonal protein with lambda light chain specificity. Performed By: #### C MP, CBC, LDH ####[address]#### SPE, B2-MICRO, SWATI SERUM, KAPPA ####[facility] , Immunoglobulin A, Serum 140 mg/dL Normal 64-422 [facility] Comment on above: Performed By: #### C MP, CBC, LDH ####[address]#### SPE, B2-MICRO, SWATI SERUM, KAPPA ####[facility] , Immunoglobulin G 751 mg/dL Normal 586-1602 [facility] Comment on above: Performed By: #### C MP, CBC, LDH ####[address]#### SPE, B2-MICRO, SWATI SERUM, KAPPA ####[facility] , Immunoglobulin M, Serum 138 mg/dL Normal 26-217 [facility] Comment on above: Result Comment: Perf ormed at: - [facility] [place] [phone] Hand Tier: Ludwig Stearns PhD, Phone: [phone] Performed By: #### C MP, CBC, LDH ####[address]#### SPE, B2-MICRO, SWATI SERUM, KAPPA ####[facility] , LDH Lactate Dehydrogenaseon 02-28-2025 LDH Lactate Dehydrogenase 154 U/L Normal 140-271 [facility] Comment on above: Result Comment: PERF ORMED BY: [address] [place] [address] PATHOLOGIST LADLE LINER HELPER MYNOR TRAN M.D. Performed By: #### C MP, CBC, LDH ####[place] [address] [place]#### SPE, B2-MICRO, SWATI SERUM, KAPPA ####[facility] , Protein Electro, 24Hr Urineo n 02-28-2025 Albumin, Urine24 25.0 % Normal . [facility] Comment on above: Performed By: #### F R KAPPA+L, UPE 24HR #### [facility] , Eatda-4-Dfourums, 24 HrUrine 9.0 % Normal . [facility] Comment on above: Performed By: #### F R KAPPA+L, UPE 24HR #### [facility] , Etajb-1-Zojtxzah, 24 HrUrine 19.8 % Normal . [facility] Comment on above: Performed By: #### F R KAPPA+L, UPE 24HR #### [facility] , Beta Globulin, 24 HrUrine 27.9 % Normal . [facility] Comment on above: Performed By: #### F R KAPPA+L, UPE 24HR #### [facility] , Gamma Globulin, 24 HrUrine 18.3 % Normal . [facility] Comment on above: Performed By: #### F R KAPPA+L, UPE 24HR #### [facility] , M-Sergio % 24Hr Not Observed Normal Not Observed [facility] Comment on above: Performed By: #### F R KAPPA+L, UPE 24HR #### [facility] , Please Note: Comment Normal . [facility] Comment on above: Result Comment: Prot ein electrophoresis scan will follow via computer, mail, or bike designer delivery. Performed at: [address] [id number] Hand Tier: Ludwig Stearns PhD, Phone: [phone] PERFORMED BY: [address] [place] [address] PATHOLOGIST LADLE LINER HELPER MYNOR TRAN M.D. Performed By: #### F R KAPPA+L, UPE 24HR #### [facility] , Protein (U) [Mass/Vol] 28.6 mg/dL Normal Not Estab. [facility] Comment on above: Performed By: #### F R KAPPA+L, UPE 24HR #### [facility] , Protein, 24Hr Calculated 186 Normal 30-150 [facility] Comment on above: Performed By: #### F R KAPPA+L, UPE 24HR #### [facility] , Protein Electrophoresis, Ser umon 02-28-2025 Albumin [Mass/Vol] 3.3 g/dL Normal 2.9-4.4 [facility] Comment on above: Performed By: #### C MP, CBC, LDH ####[address]#### SPE, B2-MICRO, SWATI SERUM, KAPPA ####[facility] , Albumin/Globulin [Mass ratio] 1.2 {ratio} Normal 0.7-1.7 [facility] Comment on above: Performed By: #### C MP, CBC, LDH ####[address]#### SPE, B2-MICRO, SWATI SERUM, KAPPA ####[facility] , Siqbt-4-Yanrtnwe 0.3 g/dL Normal 0.0-0.4 [facility] Comment on above: Performed By: #### C MP, CBC, LDH ####[place] [address] [place]#### SPE, B2-MICRO, SWATI SERUM, KAPPA ####[facility] , Eztlt-9-Nfbujlio 0.8 g/dL Normal 0.4-1.0 [facility] Comment on above: Performed By: #### C MP, CBC, LDH ####[place] [address] [place]#### SPE, B2-MICRO, SWATI SERUM, KAPPA ####[facility] , Beta Globulin 0.9 g/dL Normal 0.7-1.3 [facility] Comment on above: Performed By: #### C MP, CBC, LDH ####[address]#### SPE, B2-MICRO, SWATI SERUM, KAPPA ####[facility] , Gamma Globulin 0.8 g/dL Normal 0.4-1.8 [facility] Comment on above: Performed By: #### C MP, CBC, LDH ####[address]#### SPE, B2-MICRO, SWATI SERUM, KAPPA ####[facility] , Globulin (S) [Mass/Vol] 2.8 g/dL Normal 2.2-3.9 [facility] Comment on above: Performed By: #### C MP, CBC, LDH ####[address]#### SPE, B2-MICRO, SWATI SERUM, KAPPA ####[facility] , M-Sergio 0.2 g/dL Normal Not Observed [facility] Comment on above: Performed By: #### C MP, CBC, LDH ####[address]#### SPE, B2-MICRO, SWATI SERUM, KAPPA ####[facility] , Protein [Mass/Vol] 6.1 g/dL Normal 6.0-8.5 [facility] Comment on above: Performed By: #### C MP, CBC, LDH ####[place] [address] [place]#### SPE, B2-MICRO, SWATI SERUM, KAPPA ####[facility] , SPE-Note Comment Normal . [facility] Comment on above: Result Comment: Prot ein electrophoresis scan will follow via computer, mail, or bike designer delivery. Performed at: [address] [id number] Hand Tier: Ludwig Stearns PhD, Phone: [phone] Performed By: #### C MP, CBC, LDH ####[facility] [address]#### SPE, B2-MICRO, SWATI SERUM, KAPPA ####[facility] , XR bone surveyon 02-28-2025 XR bone survey [facility] [place] [address] [place] [id number] XRay Report Signed Patient: Yvonne Liz MR#: [id number] 15 : 1945 Acct:[id number] Age/Sex: 79 / F ADM Date: 02/28/25 Loc: Room: Type: [facility] Attending Dr: Cory Barahona MD Copies to: Cory Barahona MD Ordering Provider: Cory Barahona MD Date of Service: 02/28/25 XR/XR bone survey: D47.2 - Monoclonal gammopathy Plain film bone survey HISTORY: Monoclonal gammopathy. Calvarium intact. Minimal focal lucencies. Extensive midcervical spondylosis. Mild scoliosis of thoracolumbar spine. Thoracic spondylosis. Atherosclerosis. Extensive lower lumbar change. Mild degenerative listhesis. Lower lumbar facet degeneration right hip arthroplasty. No acute chest findings. Right hemidiaphragm elevation. Moderate constipation. Remote left proximal humerus fracture XR/XR bone survey IMPRESSION: Minimal focal lytic lesions of the left portion of the calvarium. No additional lytic lesions. Impression dictated by: Nick Stokes M.D. 02/28/2025 9:42 PM Dictation Location: [place] [address] Transcribed By: [facility] 02/28/252141 Dictated By: Nick Stokes DO 02/28/252135 Signed By: 02/28/252141 Normal [facility] X-ray reportOrdered By: Javier Rodriguez on 02-19-2025 Study report [facility] [address] [place] [id number] XRay Report Signed Patient: Yvonne Liz MR#: [id number] : 1945 Acct:[id number] Age/Sex: 79 / F ADM Date: [place] [facility] [place]: Type: REG CLI Attending Dr: Ziggy White DO Copies to: Ziggy White DO~ Ordering Provider: Ziggy White DO Date of Service: 02/19/25 XR/XR shoulder LT min 2V*: S42.A - Unspecified fracture of upper end of left ann-marie... XR shoulder LT min 2V* 02/19/2025 2:51 PM SIGNS AND SYMPTOMS: Follow-up left proximal humerus fracture PROTOCOL: Frontal, Grashey, and scapular Y views of the left shoulder COMPARISON: 01/29/2025 FINDINGS: There is a similar impacted fracture of the humeral head and neck. There is widening of the glenohumeral joint space suggesting a joint effusion. This is worse when compared to the prior exam. No significant interval healing. No change in alignment. The visualized left hemithorax is grossly intact. XR/XR shoulder LT min 2V* IMPRESSION: Worsening left glenohumeral joint effusion. Otherwise unchanged proximal left humerus fracture. Impression dictated by: Javier Rodriguez M.D. 02/19/2025 8:35 PM Dictation Location: [place] [address] Transcribed By: [facility] 02/19/252034 Dictated By: Javier Rodriguez II, MD 02/19/252033 Signed By: 02/19/252034 [facility] Work Phone: Study report [facility] [address] [place] [address] XRay Report Signed Patient: Yvonne Liz MR#: [id number] : 1945 Acct:[id number] Age/Sex: 79 / F ADM Date: [place] [facility] [place]: Type: REG CLI Attending Dr: Ziggy White DO Copies to: Ziggy White DO~ Ordering Provider: Ziggy White DO Date of Service: 02/19/25 XR/XR wrist LT min 3V*: S42.A - Unspecified fracture of upper end of left ann-marie... XR wrist LT min 3V* 02/19/2025 2:51 PM SIGNS AND SYMPTOMS: Left proximal humerus and distal radius/ulna fractures, follow-up PROTOCOL: Frontal, lateral, and oblique radiographs of the left wrist COMPARISON: 01/29/2025 FINDINGS: There is an impacted fracture of the distal radius with increased healing response when compared prior exam. No change in alignment. There is a similar distal ulnar fracture without change in alignment. Healing remains incomplete. The radiocarpal joint and carpal rows are preserved. There is persistent diffuse soft tissue swelling. Vascular calcifications are present in the soft tissues. XR/XR wrist LT min 3V* IMPRESSION: Healing distal radius and ulna fractures without change in alignment. Healing remains incomplete. Impression dictated by: Javier Rodriguez M.D. 02/19/2025 8:32 PM Dictation Location: [place] [address] Transcribed By: [facility] 02/19/252031 Dictated By: Javier Rodriguez II, MD 02/19/252030 Signed By: 02/19/252031 [facility] Work Phone: XR shoulder LT min 2V*on XR shoulder LT min 2V* [facility] [place] [address] [place] [address] XRay Report Signed Patient: Yvonne Liz MR#: [id number] 15 : 1945 Acct:[id number] Age/Sex: 79 / F ADM Date: 02/19/25 [place] [facility] [place]: Type: [facility] CLI Attending Dr: Ziggy White DO Copies to: Ziggy White DO Ordering Provider: Ziggy White DO Date of Service: 02/19/25 XR/XR shoulder LT min 2V*: S42.A - Unspecified fracture of upper end of left ann-marie... XR shoulder LT min 2V* 02/19/2025 2:51 PM SIGNS AND SYMPTOMS: Follow-up left proximal humerus fracture PROTOCOL: Frontal, Grashey, and scapular Y views of the left shoulder COMPARISON: 01/29/2025 FINDINGS: There is a similar impacted fracture of the humeral head and neck. There is widening of the glenohumeral joint space suggesting a joint effusion. This is worse when compared to the prior exam. No significant interval healing. No change in alignment. The visualized left hemithorax is grossly intact. XR/XR shoulder LT min 2V* IMPRESSION: Worsening left glenohumeral joint effusion. Otherwise unchanged proximal left humerus fracture. Impression dictated by: Javier Rodriguez M.D. 02/19/2025 8:35 PM Dictation Location: [place] [address] Transcribed By: [facility] 02/19/252034 Dictated By: Javier Rodriguez II, MD 02/19/252033 Signed By: 02/19/252034 Normal [facility] XR wrist LT min 3V*on 2024 XR wrist LT min 3V* [facility] [address] [place] [address] XRay Report Signed Patient: Yvonne Liz MR#: [id number] 15 : 1945 Acct:[id number] Age/Sex: 79 / F ADM Date: 02/19/25 [place] [facility] [place]: Type: [facility] Attending Dr: Ziggy White DO Copies to: Ziggy White DO Ordering Provider: Ziggy White DO Date of Service: 02/19/25 XR/XR wrist LT min 3V*: S4. - Unspecified fracture of upper end of left ann-marie... XR wrist LT min 3V* 02/19/2025 2:51 PM SIGNS AND SYMPTOMS: Left proximal humerus and distal radius/ulna fractures, follow-up PROTOCOL: Frontal, lateral, and oblique radiographs of the left wrist COMPARISON: 01/29/2025 FINDINGS: There is an impacted fracture of the distal radius with increased healing response when compared prior exam. No change in alignment. There is a similar distal ulnar fracture without change in alignment. Healing remains incomplete. The radiocarpal joint and carpal rows are preserved. There is persistent diffuse soft tissue swelling. Vascular calcifications are present in the soft tissues. XR/XR wrist LT min 3V* IMPRESSION: Healing distal radius and ulna fractures without change in alignment. Healing remains incomplete. Impression dictated by: Javier Rodriguez M.D. 02/19/2025 8:32 PM Dictation Location: [facility]-17 Transcribed By: TIFFANIE 02/19/252031 Dictated By: Javier Rodriguez II, MD 02/19/252030 Signed By: 02/19/252031 Normal [facility] XR shoulder LT min 2V*on XR shoulder LT min 2V* [facility] [address] [place] [address] XRay Report Signed Patient: Yvonne Liz MR#: [id number] 15 : 1945 Acct:[id number] Age/Sex: 79 / F ADM Date: 01/29/25 [place] [facility] [place]: Type: [facility] Attending Dr: Ziggy White DO Copies to: Ziggy White DO Ordering Provider: Ziggy White DO Date of Service: 01/29/25 XR/XR shoulder LT min 2V*: M25.512 - Pain in left shoulder 3 views left shoulder INDICATION: Left proximal humerus fracture COMPARISON: 01/11/2025 FINDINGS: Mildly comminuted humeral head/neck fracture with impaction and foreshortening. Glenoid appears intact. Mild AC joint spurring without distraction. Left lung apex is clear. XR/XR shoulder LT min 2V* IMPRESSION: Mildly comminuted head and neck humeral fracture. Impression dictated by: Colby Worthy M.D. 01/29/2025 9:21 PM Dictation Location: [facility]-29 Transcribed By: TIFFANIE 01/29/252120 Dictated By: Colby Worthy MD 01/29/252118 Signed By: 01/29/252120 Normal [facility] XR wrist LT min 3V*on 2024 XR wrist LT min 3V* [facility] [address] [place] [address] XRay Report Signed Patient: Yvonne Liz MR#: [id number] [birth year] : 1945 Acct:[id number] Age/Sex: 79 / F ADM Date: 01/29/25 [place] [facility] [place]: Type: [facility] Attending Dr: Ziggy White DO Copies to: Ziggy White DO Ordering Provider: Ziggy White DO Date of Service: 01/29/25 XR/XR wrist LT min 3V*: M25.532 - Pain in left wrist LEFT WRIST - 3 views CLINICAL HISTORY: Fall COMPARISON: None FINDINGS: Overlying casting/pituitary identified. Healing fractures involving distal ulna and radius noted with satisfactory alignment. XR/XR wrist LT min 3V* IMPRESSION: Healing distal radial and ulnar fractures. Impression dictated by: Colby Worthy M.D. 01/29/2025 10:15 PM Dictation Location: [place] [address] Transcribed By: [facility] 01/29/252214 Dictated By: Colby Worthy MD 01/29/252209 Signed By: 01/29/252214 Normal [facility] Urine Cultureon 01-11-2025 Bacteria identified Cx Nom (U) ORGANISM: Klebsiella pneumoniae (O:KLEPNE) [place] Count 30,000 Aerobic [place] Charge (NMIC56) SUSCEPTIBILITY ORGANISM: O:KLEPNE ANTIBIOTIC INTERPRETATION [place] Amikacin S <16 Amoxacillin/K Clavulanate S <8 Ampicillin/Sulbactam S <4 Aztreonam S <4 Cefazolin S <2 Cefepime S <2 Ceftazidime S <1 Ceftazidime/Avibactam S <4 Ceftolozane/Tazobactam S <2 Ceftriaxone S <1 Cefuroxime S <4 Ciprofloxacin S <0.25 Ertapenem S <0.5 Gentamicin S <2 Levofloxacin S <0.5 Meropenem S <1 Meropenem/Vaborbactam S <2 Nitrofurantoin I 64 Piperacillin/Tazobactam S <8 Tetracycline S <4 Tigecycline S <2 Tobramycin S <2 Trimethoprim/Sulfamethoxaz ole S <0.5 S = SUSCEPTIBLE I = INTERMEDIATE R = RESISTANT BLANK = DATA NOT AVAILABLE, OR DRUG NOT ADVISABLE OR TESTED R* = RESISTANCE DUE TO EXTENDED SPECTRUM BETA-LACTAMASES ESBL = EXTENDED SPECTRUM BETA-LACTAMASE TFG = THYMIDINE-DEPENDENT STRAIN TRAVIS = BETA-LACTAMASE POSITIVE IB = INDUCIBLE BETA-LACTAMASE. APPEARS IN PLACE OF 'S' WITH SPECIES KNOWN TO POSSESS INDUCIBLE BETA-LACTAMASES. POTENTIALLY THEY MAY BECOME RESISTANT TO ALL B-LACTAM DRUGS. PERFORMED BY: [facility] [address] [place] [address] PATHOLOGIST LADLE LINER HELPER MYNOR TRAN M.D. Normal [facility] Comment on above: Performed By: #### C UU ####[facility] [id number] [place] [address] [facility] Urine cultureOrdered By: Marcelino Wise on 01-11-2025 Bacteria identified Cx Nom (U) Klebsiella pneumoniae Abnormal [facility] - Microbiology an d Antimicrobial susceptibilityon 09-26-2024 SARS-CoV-2 (COVID-19) RNA RADHA+probe Ql (Unsp spec) Negative [facility] No Panel Informationon 09-26 FLU A Negative [facility] FLU B Negative [facility] Interpretation and review of laboratory results Normal [facility] CBC W Auto Differential pane l (Bld)on 06-23-2024 Basophils (Bld) [#/Vol] 11 10*3/uL [facility] Basophils/100 WBC (Bld) 0.3 % [facility] Eosinophils (Bld) [#/Vol] 68 10*3/uL [facility] Eosinophils/100 WBC (Bld) 1.9 % [facility] Erythrocyte distribution width (RBC) [Ratio] 13 % 11.0 - 15.0 % [facility] Healthcare Hematocrit (Bld) [Volume fraction] 33.6 % Low 35.0 - 45.0 % [facility] Hemoglobin (Bld) [Mass/Vol] 11.9 g/dL 11.7 - 15.5 g/dL [facility] Lymphocytes (Bld) [#/Vol] 486 10*3/uL Low [facility] Lymphocytes/100 WBC (Bld) 13.5 % [facility] MCH (RBC) [Entitic mass] 36.5 pg High 27.0 - 33.0 pg [facility] MCHC (RBC) [Mass/Vol] 35.4 g/dL 32.0 - 36.0 g/dL [facility] Comment on above: For adults, a slight decrease in the calculated MCHC value (in the range of 30 to 32 g/dL) is most likely not clinically significant; however, it should be interpreted with caution in correlation with other red cell parameters and the patient's clinical condition. MCV (RBC) [Entitic vol] 103.1 fL High 80.0 - 100.0 fL [facility] Monocytes (Bld) [#/Vol] 508 10*3/uL [facility] Monocytes/100 WBC (Bld) 14.1 % [facility] Neutrophils (Bld) [#/Vol] 2527 10*3/uL [facility] Neutrophils/100 WBC (Bld) 70.2 % [facility] Platelet mean volume (Bld) [Entitic vol] 10.5 fL 7.5 - 12.5 fL [facility] Platelets (Bld) [#/Vol] 96 10*3/uL Low [facility] RBC (Bld) [#/Vol] 3.26 10*6/uL Low [facility] WBC (Bld) [#/Vol] 3.6 10*3/uL Low [facility] Laboratory - Chemistry and C hemistry - challengeon 06-23-2024 Albumin [Mass/Vol] 3.6 g/dL 3.6 - 5.1 g/dL [facility] Albumin/Globulin [Mass ratio] 1.6 {ratio} [facility] ALP [Catalytic activity/Vol] 72 U/L 37 - 153 U/L [facility] ALT [Catalytic activity/Vol] 23 U/L 6 - 29 U/L [facility] AST [Catalytic activity/Vol] 20 U/L 10 - 35 U/L [facility] Bilirubin [Mass/Vol] 0.7 mg/dL 0.2 - 1.2 mg/dL [facility] Calcium [Mass/Vol] 9.2 mg/dL 8.6 - 10. 4 mg/dL [facility] Chloride [Moles/Vol] 103 mmol/L 98 - 110 mmol/L [facility] CO2 [Moles/Vol] 29 mmol/L 20 - 32 mmol/L [facility] Cobalamin (Vitamin B12) [Mass/Vol] 222 pg/mL 200 - 1100 pg/mL [facility] Comment on above: Please Note: Although the [...] 0.98 mg/dL High 0.60 - 0.95 mg/dL [facility] GFR/1.73 sq M.predicted among non-blacks MDRD (S/P/Bld) [Vol rate/Area] 58 mL/min/{1.73_m2} Low > OR = 60 mL/min/1.73 m2 [facility] Globulin (S) [Mass/Vol] 2.2 g/dL [facility] Glucose [Mass/Vol] 146 mg/dL High 65 - 99 mg/dL [facility] Comment on above: Fasting reference interval For someone without known diabetes, a glucose value >125 mg/dL indicates that they may have diabetes and this should be confirmed with a follow-up test. Potassium [Moles/Vol] 3.6 mmol/L 3.5 - 5.3 mmol/L [facility] Protein [Mass/Vol] 5.8 g/dL Low 6.1 - 8.1 g/dL [facility] Sodium [Moles/Vol] 138 mmol/L 135 - 146 mmol/L [facility] TSH Qn 2.26 m[IU]/L [facility] Urea nitrogen [Mass/Vol] 27 mg/dL High 7 - 25 mg/dL [facility] Urea nitrogen/Creatinine [Mass ratio] 28 mg/mg High [facility] Lipid 1996 panelon 4 Cholesterol [Mass/Vol] 174 mg/dL NINF - 200 mg/dL [facility] Cholesterol in HDL [Mass/Vol] 61 mg/dL > OR = 50 [facility] Cholesterol in LDL [Mass/Vol] 86 mg/dL mg/dL (calc) [facility] Comment on above: Reference range: <10 0 Desirable range <100 mg/dL for primary prevention; <70 mg/dL for patients with CHD or diabetic patients with > or = 2 CHD risk factors. LDL-C is now calculated using the David calculation, which is a validated novel method providing better accuracy than the Friedewald equation in the estimation of LDL-C. Georgi SOSA et al. CLAUDIA. 2013;310(19): 3895-4046 (http://education.Signaturit/faq/KOC516) Cholesterol non HDL [Mass/Vol] 113 mg/dL [facility] Comment on above: For patients with di abetes plus 1 major ASCVD risk factor, treating to a non-HDL-C goal of <100 mg/dL (LDL-C of <70 mg/dL) is considered a therapeutic option. Cholesterol.total/C holesterol in HDL [Mass ratio] 2.9 {ratio} [facility] Triglyceride [Mass/Vol] 168 mg/dL High [facility] - 150 mg/dL [facility] No Panel Informationon 06-23 Interpretation and review of laboratory results Abnormal [facility] Performing Organizat ion Information Site ID: QPT Name: [facility] Address: [address] [place] [address], [address] [place] [id number] Director: Juan Alberto Harrell MD [facility] Urinalysis macro (dipstick) panel (U)on 05-18-2024 Bilirubin, UA Negative Negative - 4(70) +++ mg/dL [facility] Blood, UA Negative Negative - 50 Mikal/mcL [facility] Clarity, UA Cloudy [facility] Color, UA Yellow [facility] Glucose, UA Negative Negative - 2000(110) ++++ mg/dL [facility] Ketones, UA Negative Negative - 160(16) ++++ mg/dL [facility] Leukocytes, UA Positive Negative - 500+++ Dustin/mcL [facility] Nitrite, UA Negative Negative - Positive [facility] pH, UA 5.0 5 - 9 [facility] Protein, UA Positive Negative - 2000(20) ++++ mg/dL [facility] Spec Grav, UA 1.005 1 - 1.03 [facility] Urobilinogen, UA 1.0 0.2 - 12 mg/dL [facility] XR Spine Lumbar Complete w/F maxi AND [place] 12-10-2022 XR Spine Lumbar Complete w/Flex AND [...] by Roosevelt Motley on 12/10/2022 1457 Normal [facility] XR Hip Complete Right*on XR Hip Complete Right* HISTORY: Posterior hip radiating pain falls x 2 years FINDINGS: Mild bilateral superior medial hip joint space loss. No pincer or CAM deformities. Prominent arterial calcifications. IMPRESSION: 1. 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 Report reported and signed by Bonilla Mckeon on 04/29/2022 1031 Normal [facility] Complete Blood Count with Au to Diffon 01-13-2022 Basophils (Bld) [#/Vol] 0.06 10*3/uL Normal 0.00-0.20 [facility] Comment on above: Performed By: #### V ITD, CMP, TSH reflex FT4, CBCAD, FE Prof #### [facility] Laboratory [address], [place] [id number] Basophils/100 WBC (Bld) 1.3 % Normal [facility] Comment on above: Performed By: #### V ITD, CMP, TSH reflex FT4, CBCAD, FE Prof #### [facility] [address], [place] [id number] Eosinophils (Bld) [#/Vol] 0.36 10*3/uL Normal 0.02-0.50 [facility] Comment on above: Performed By: #### V ITD, CMP, TSH reflex FT4, CBCAD, FE Prof #### [facility] [address], [place] [id number] Eosinophils/100 WBC (Bld) 7.6 % Normal [facility] [employer] Comment on above: Performed By: #### V ITD, CMP, TSH reflex FT4, CBCAD, FE Prof #### [facility] [address], [place] [id number] Erythrocyte distribution width (RBC) [Ratio] 12.1 % Normal 11.0-15.0 [facility] [employer] Comment on above: Performed By: #### V ITD, CMP, TSH reflex FT4, CBCAD, FE Prof #### [facility] [address], [place] [id number] Hematocrit (Bld) [Volume fraction] 34.0 % Low 35.0-47.0 [facility] [employer] Comment on above: Performed By: #### V ITD, CMP, TSH reflex FT4, CBCAD, FE Prof #### [facility] [address], [place] [id number] Hemoglobin (Bld) [Mass/Vol] 11.9 g/dL Normal 11.6-15.5 [facility] [employer] Comment on above: Performed By: #### V ITD, CMP, TSH reflex FT4, CBCAD, FE Prof #### [facility] [address], [place] [id number] Lymphocytes (Bld) [#/Vol] 1.2 10*3/uL Normal 0.9-3.9 [facility] [employer] Comment on above: Performed By: #### V ITD, CMP, TSH reflex FT4, CBCAD, FE Prof #### [facility] [address], [place] [id number] Lymphocytes/100 WBC (Bld) 26.1 % Normal [facility] [employer] Comment on above: Performed By: #### V ITD, CMP, TSH reflex FT4, CBCAD, FE Prof #### [facility] [address], [place] [id number] MCH (RBC) [Entitic mass] 34.0 pg High 27.0-33.0 [facility] [employer] Comment on above: Performed By: #### V ITD, CMP, TSH reflex FT4, CBCAD, FE Prof #### [facility] [address], [place] [id number] MCHC (RBC) [Mass/Vol] 35.0 g/dL Normal 32.0-36.0 [facility] Comment on above: Performed By: #### V ITD, CMP, TSH reflex FT4, CBCAD, FE Prof #### [facility] [address], [place] [id number] MCV (RBC) [Entitic vol] 97 fL Normal 80-100 [facility] Comment on above: Performed By: #### V ITD, CMP, TSH reflex FT4, CBCAD, FE Prof #### [facility] [address], [place] [id number] Monocytes (Bld) [#/Vol] 0.4 10*3/uL Normal 0.2-0.9 [facility] Comment on above: Performed By: #### V ITD, CMP, TSH reflex FT4, CBCAD, FE Prof #### [facility] [address], [place] [id number] Monocytes/100 WBC (Bld) 8.9 % Normal [facility] Comment on above: Performed By: #### V ITD, CMP, TSH reflex FT4, CBCAD, FE Prof #### [facility] [address], [place] [id number] Neutrophils (Bld) [#/Vol] 2.6 10*3/uL Normal 1.5-7.8 [facility] Comment on above: Performed By: #### V ITD, CMP, TSH reflex FT4, CBCAD, FE Prof #### [facility] [address], [place] [id number] Neutrophils/100 WBC (Bld) 55.9 % Normal [facility] Comment on above: Performed By: #### V ITD, CMP, TSH reflex FT4, CBCAD, FE Prof #### [facility] [address], [place] [id number] Platelet mean volume (Bld) [Entitic vol] 11.00 fL Normal 7.50-12.50 [facility] Comment on above: Performed By: #### V ITD, CMP, TSH reflex FT4, CBCAD, FE Prof #### [facility] [address], [place] [id number] Platelets (Bld) [#/Vol] 102 10*3/uL Low 140-400 [facility] Comment on above: Performed By: #### V ITD, CMP, TSH reflex FT4, CBCAD, FE Prof #### [facility] [address], [place] [id number] RBC (Bld) [#/Vol] 3.50 10*6/uL Low 3.90-5.20 [facility] Specialist Comment on above: Performed By: #### V ITD, CMP, TSH reflex FT4, CBCAD, FE Prof #### [facility] [address], [place] [id number] RDW-SD 42.1 fL Normal 37.0-50.0 [facility] Comment on above: Performed By: #### V ITD, CMP, TSH reflex FT4, CBCAD, FE Prof #### [facility] [address], [place] [id number] WBC (Bld) [#/Vol] 4.7 10*3/uL Normal 3.8-11.0 [facility] Specialist Comment on above: Performed By: #### V ITD, CMP, TSH reflex FT4, CBCAD, FE Prof #### [facility] [address], [place] [id number] Comprehensive Metabolic Pane [facility] 01-13-2022 Albumin [Mass/Vol] 4.2 g/dL Normal 3.6-5.1 [facility] [employer] Comment on above: Performed By: #### V ITD, CMP, TSH reflex FT4, CBCAD, FE Prof #### [facility] [address], [place] [id number] Albumin/Globulin [Mass ratio] 1.8 {ratio} Normal 1.0-2.5 [facility] Comment on above: Performed By: #### V ITD, CMP, TSH reflex FT4, CBCAD, FE Prof #### [facility] [address], [place] [id number] ALP [Catalytic activity/Vol] 83 U/L Normal 35-119 [facility] Comment on above: Performed By: #### V ITD, CMP, TSH reflex FT4, CBCAD, FE Prof #### [facility] [address], [place] [id number] ALT [Catalytic activity/Vol] 28 U/L Normal 6-33 [facility] Comment on above: Result Comment: 07/09 Female reference range changed. Performed By: #### V ITD, CMP, TSH reflex FT4, CBCAD, FE Prof #### [facility] [address], [place] [id number] Anion gap [Moles/Vol] 12 mmol/L Normal 12-20 [facility] Comment on above: Result Comment: Effe ctive 08/14/2019 reference range changed. Performed By: #### V ITD, CMP, TSH reflex FT4, CBCAD, FE Prof #### [facility] [address], [place] [id number] AST [Catalytic activity/Vol] 36 U/L High 9-34 [facility] Comment on above: Performed By: #### V ITD, CMP, TSH reflex FT4, CBCAD, FE Prof #### [facility] [address], [place] [id number] Bilirubin [Mass/Vol] 0.48 mg/dL Normal 0.30-1.20 [facility] Comment on above: Performed By: #### V ITD, CMP, TSH reflex FT4, CBCAD, FE Prof #### [facility] [address], [place] [id number] BUN/CREA 19 Ratio Normal 6-22 [facility] Comment on above: Performed By: #### V ITD, CMP, TSH reflex FT4, CBCAD, FE Prof #### [facility] [address], [place] [id number] Calcium [Mass/Vol] 9.5 mg/dL Normal 8.6-10.2 [facility] Comment on above: Performed By: #### V ITD, CMP, TSH reflex FT4, CBCAD, FE Prof #### [facility] [address], [place] [id number] Chloride [Moles/Vol] 105 mmol/L Normal 98-107 [facility] Special[facility] Comment on above: Performed By: #### V ITD, CMP, TSH reflex FT4, CBCAD, FE Prof #### [facility] [address], [place] [id number] CO2 [Moles/Vol] 27 mmol/L Normal 20-31 [facility] Comment on above: Performed By: #### V ITD, CMP, TSH reflex FT4, CBCAD, FE Prof #### [facility] [address], [place] [id number] Creatinine [Mass/Vol] 1.0 mg/dL Normal 0.6-1.4 [facility] Comment on above: Performed By: #### V ITD, CMP, TSH reflex FT4, CBCAD, FE Prof #### [facility] [address], [place] [id number] eGFRAA 67 mL/min/1.73m2 Normal >60 [facility] Comment on above: Performed By: #### V ITD, CMP, TSH reflex FT4, CBCAD, FE Prof #### [facility] [address], [place] [id number] eGFRNAA 55 mL/min/1.73m2 Low >60 [facility] Special[facility] Comment on above: Performed By: #### V ITD, CMP, TSH reflex FT4, CBCAD, FE Prof #### [facility] [address], [place] [id number] Globulin (S) [Mass/Vol] 2.3 g/dL Normal 1.9-3.7 [facility] Comment on above: Performed By: #### V ITD, CMP, TSH reflex FT4, CBCAD, FE Prof #### [facility] [address], [place] [id number] Glucose [Mass/Vol] 85 mg/dL Normal 65-99 [facility] Comment on above: Result Comment: For FASTING Glucose --- ADA reference ranges: Normal 65-99 mg/dl Prediabetes 100-125 Diabetes >/= 126 Performed By: #### V ITD, CMP, TSH reflex FT4, CBCAD, FE Prof #### [facility] [address], [place] [id number] Potassium [Moles/Vol] 3.8 mmol/L Normal 3.5-5.5 [facility] Comment on above: Performed By: #### V ITD, CMP, TSH reflex FT4, CBCAD, FE Prof #### [facility] [address], [place] [id number] Protein [Mass/Vol] 6.5 g/dL Normal 6.1-8.1 [facility] [employer] Comment on above: Performed By: #### V ITD, CMP, TSH reflex FT4, CBCAD, FE Prof #### [facility] [address], [place] [id number] Sodium [Moles/Vol] 140 mmol/L Normal 135-146 [facility] [employer] Comment on above: Performed By: #### V ITD, CMP, TSH reflex FT4, CBCAD, FE Prof #### [facility] [address], [place] [id number] Urea nitrogen [Mass/Vol] 19 mg/dL Normal 7-25 [facility] [employer] Comment on above: Performed By: #### V ITD, CMP, TSH reflex FT4, CBCAD, FE Prof #### [facility] [address], [place] [id number] Iron Profileon 01-13-2022 %FESAT 45 % Normal 11-50 [facility] Specialist Comment on above: Performed By: #### V ITD, CMP, TSH reflex FT4, CBCAD, FE Prof #### [facility] [address], [place] [id number] FE 129 ug/dL Normal 40-190 [facility] [employer] Comment on above: Result Comment: Refe rence range change 06/25/2017. Prior reference range F 37-145 ug/dL, M 59-158 ug/dL. Performed By: #### V ITD, CMP, TSH reflex FT4, CBCAD, FE Prof #### [facility] [address], [place] [id number] TIBC 284 ug/dL Normal 250-450 [facility] [employer] Comment on above: Performed By: #### V ITD, CMP, TSH reflex FT4, CBCAD, FE Prof #### [facility] [address], [place] [id number] UIBC 155 ug/dL Normal 112-347 [facility] [employer] Comment on above: Performed By: #### V ITD, CMP, TSH reflex FT4, CBCAD, FE Prof #### [facility] [address], [place] [id number] TSH w/ Reflex to Free T4on 0 01-13-2022 TSH 3.100 uIU/mL Normal 0.400-4.500 [facility] Specialist Comment on above: Performed By: #### V ITD, CMP, TSH reflex FT4, CBCAD, FE Prof #### [facility] [address], [place] [id number] US Venous, Bilateral, [place] 01-13-2022 US Venous, Bilateral, Lower Ext HISTORY: [...] #### B 12/Fol #### [facility] [address], [place] [id number] FOL 11.6 ng/mL Normal >4.7 [facility] Special[facility] Comment on above: Result Comment: Refe rence range change 06/25/2017. Prior reference range F 4.8-37.3 ng/mL, M 4.5-32.2 ng/mL. Performed By: #### B 12/Fol #### [facility] [address], [place] [id number] Vitamin D 25-OHon 01-13-2022 VIT D 25 OH 30 ng/ml Normal >29 [facility] Specialist Comment on above: Result Comment: Ching min D Status Deficiency <20 ng/mL Insufficiency 20-29 ng/mL Optimal 30-100 ng/mL Possible Toxicity >=150 ng/mL Performed By: #### V ITD, CMP, TSH reflex FT4, CBCAD, FE Prof #### [facility] [address] [place], [place] [id number] Vital Signs Date Time Vital Sign Value Performing Clinician Facility 03-14-2025 13:59-0400 Body weight 63.5 kg PHYSICIAN NO [facility] 03-14-2025 13:59-0400 Diastolic blood pressure 86 mm[Hg] PHYSICIAN NO [facility] 03-14-2025 13:59-0400 Heart rate 87 /min PHYSICIAN NO [facility] 03-14-2025 13:59-0400 Respiratory rate 20 /min PHYSICIAN NO [facility] 03-14-2025 13:59-0400 SaO2% (BldA) [Mass fraction] 98 % PHYSICIAN NO [facility] 03-14-2025 13:59-0400 Systolic blood pressure 147 mm[Hg] PHYSICIAN NO [facility] 02-22-2025 09:05-0400 Body height 162.56 cm PHYSICIAN NO [facility] 02-22-2025 09:05-0400 Body mass index (BMI) [Ratio] 24.3 kg/m2 PHYSICIAN NO [facility] 02-22-2025 09:05-0400 Body temperature 97.8 [degF] PHYSICIAN NO [facility] 02-22-2025 09:05-0400 Body weight 64.41 kg PHYSICIAN NO [facility] 02-22-2025 09:05-0400 Diastolic blood pressure 73 mm[Hg] PHYSICIAN NO [facility] 02-22-2025 09:05-0400 Heart rate 73 /min PHYSICIAN NO [facility] 02-22-2025 09:05-0400 Respiratory rate 20 /min PHYSICIAN NO [facility] 02-22-2025 09:05-0400 SaO2% (BldA) [Mass fraction] 100 % PHYSICIAN NO [facility] 02-22-2025 09:05-0400 Systolic blood pressure 113 mm[Hg] PHYSICIAN NO [facility] 02-13-2025 10:22-0400 Body height 160 cm Cynthia Leong MD Work Phone: [facility] 02-13-2025 10:22-0400 Body mass index (BMI) [Ratio] 25.3 kg/m2 Cynthia Leong MD Work Phone: [facility] 02-13-2025 10:22-0400 Body weight 64.77 kg Cynthia Leong MD Work Phone: [facility] 02-13-2025 10:22-0400 Diastolic blood pressure 72 mm[Hg] Cynthia Leong MD Work Phone: [facility] 02-13-2025 10:22-0400 Heart rate 81 /min Cynthia Leong MD Work Phone: [facility] 02-13-2025 10:22-0400 SaO2% (BldA) [Mass fraction] 99 % Cynthia Leong MD Work Phone: [facility] 02-13-2025 10:22-0400 Systolic blood pressure 122 mm[Hg] Cynthia Leong MD Work Phone: [facility] 10-06-2024 14:15-0500 Body height 160 cm Cynthia Leong MD Work Phone: [facility] 10-06-2024 14:15-0500 Body mass index (BMI) [Ratio] 25.9 kg/m2 Cynthia Leong MD Work Phone: [facility] 10-06-2024 14:15-0500 Body weight 66.32 kg Cynthia Leong MD Work Phone: [facility] 10-06-2024 14:15-0500 Diastolic blood pressure 90 mm[Hg] Cynthia Leong MD Work Phone: [facility] 10-06-2024 14:15-0500 Heart rate 88 /min Cynthia Leong MD Work Phone: [facility] 10-06-2024 14:15-0500 SaO2% (BldA) [Mass fraction] 97 % Cynthia Leong MD Work Phone: [facility] 10-06-2024 14:15-0500 Systolic blood pressure 138 mm[Hg] Cynthia Leong MD Work Phone: [facility] 09-26-2024 11:01-0500 Body mass index (BMI) [Ratio] 26.36 kg/m2 Roslyn Snowsamuel [employer] K[employer]PER Work Phone: [facility] 09-26-2024 11:01-0500 Body temperature 98.49 [degF] Roslyn Redding JAIL KEEPER Work Phone: [facility] 09-26-2024 11:01-0500 Body weight 67.5 kg Roslyn Redding JAIL KEEPER Work Phone: [facility] 09-26-2024 11:01-0500 Diastolic blood pressure 80 mm[Hg] Roslyn Redding JAIL KEEPER Work Phone: [facility] 09-26-2024 11:01-0500 Heart rate 73 /min Roslyn Snowsamuel JAIL KEEPER Work Phone: [facility] 09-26-2024 11:01-0500 SaO2% (BldA) [Mass fraction] 95 % Roslyn Redding JAIL KEEPER Work Phone: [facility] 09-26-2024 11:01-0500 Systolic blood pressure 122 mm[Hg] Roslyn Redding JAIL KEEPER Work Phone: [facility] 06-22-2024 16:17-0500 Body height 160 cm Cynthia Leong MD Work Phone: [facility] 06-22-2024 16:17-0500 Body mass index (BMI) [Ratio] 25.37 kg/m2 Cynthia Leong MD Work Phone: [facility] 06-22-2024 16:17-0500 Body weight 64.95 kg Cynthia Leong MD Work Phone: [facility] 06-22-2024 16:17-0500 Diastolic blood pressure 98 mm[Hg] Cynthia Leong MD Work Phone: [facility] 06-22-2024 16:17-0500 Heart rate 80 /min Cynthia Leong MD Work Phone: [facility] 06-22-2024 16:17-0500 SaO2% (BldA) [Mass fraction] 95 % Cynthia Leong MD Work Phone: [facility] 06-22-2024 16:17-0500 Systolic blood pressure 160 mm[Hg] Cynthia Leong MD Work Phone: [facility] 05-18-2024 10:14-0400 Heart rate 74 /min Divina Castellano JAIL KEEPER Work Phone: [facility] 05-18-2024 10:14-0400 SaO2% (BldA) [Mass fraction] 99 % Divina Castellano JAIL KEEPER Work Phone: [facility] 05-18-2024 09:50-0400 Body mass index (BMI) [Ratio] 24.44 kg/m2 Divina Castellano JAIL KEEPER Work Phone: [facility] 05-18-2024 09:50-0400 Body temperature 97.39 [degF] Divina Castellano JAIL KEEPER Work Phone: [facility] 05-18-2024 09:50-0400 Body weight 64.59 kg Divina Castellano JAIL KEEPER Work Phone: [facility] 05-18-2024 09:50-0400 Diastolic blood pressure 82 mm[Hg] Divina Castellano JAIL KEEPER Work Phone: [facility] 05-18-2024 09:50-0400 Systolic blood pressure 138 mm[Hg] Divina Castellano JAIL KEEPER Work Phone: [facility] 05-10-2023 10:45-0400 Body height 162.56 cm Ap Holland Other [facility] [employer] Other 05-10-2023 10:45-0400 Body mass index (BMI) [Ratio] 25.4 kg/m2 Ap Holland Other [employer] Other 05-10-2023 10:45-0400 Body weight 67.13 kg Ap Skyler Other [employer] Other 05-10-2023 10:45-0400 Diastolic blood pressure 80 mm[Hg] Ap Skyler Other [employer] Other 05-10-2023 10:45-0400 Systolic blood pressure 122 mm[Hg] Ap Skyler Other [employer] Other 04-06-2023 11:15-0400 Body height 162.56 cm Ap Skyler Other [employer] Other 04-06-2023 11:15-0400 Body mass index (BMI) [Ratio] 26.09 kg/m2 Ap Skyler Other [employer] Other 04-06-2023 11:15-0400 Body weight 68.95 kg Ap Skyler Other [employer] Other 04-06-2023 11:15-0400 Diastolic blood pressure 84 mm[Hg] Ap Skyler Other [employer] Other 04-06-2023 11:15-0400 Systolic blood pressure 124 mm[Hg] Ap Skyler Other [employer] Other 03-23-2023 11:30-0400 Body height 162.56 cm Ap Skyler Other [employer] Other 03-23-2023 11:30-0400 Body mass index (BMI) [Ratio] 26.09 kg/m2 Ap Skyler Other [employer] Other 03-23-2023 11:30-0400 Body weight 68.95 kg Ap Holland Other [employer] Other 03-23-2023 11:30-0400 Diastolic blood pressure 84 mm[Hg] Ap Holland Other [employer] Other 03-23-2023 11:30-0400 Systolic blood pressure 140 mm[Hg] Ap Holland Other [employer] Other 03-08-2023 09:00-0400 Body height 162.56 cm Ap Holland Other [employer] Other 03-08-2023 09:00-0400 Body mass index (BMI) [Ratio] 26.74 kg/m2 Ap Holland Other [employer] Systems Other 03-08-2023 09:00-0400 Body weight 70.67 kg Ap Holland Other [employer] Other 03-08-2023 09:00-0400 Diastolic blood pressure 80 mm[Hg] Ap Holland Other [employer] Other 03-08-2023 09:00-0400 SaO2% (BldA) [Mass fraction] 99 % Ap Holland Other [employer] Other 03-08-2023 09:00-0400 Systolic blood pressure 130 mm[Hg] Ap Holland Other [employer] Other Encounters Encounter Date Encounter Type Care Provider Facility Start: 03-21-2025 ambulatory Cynthia Leong Facility:[facility] Start: 03-14-2025 End: 03-14-2025 ambulatory PHYSICIAN NO [facility] Work Phone: Start: 03-14-2025 End: 03-14-2025 Patient encounter procedure Cory Barahona MD [facility] Work Phone: Start: 03-13-2025 End: 03-13-2025 Refill Cynthia Leong MD Work Phone: [facility] Comment on above: Primary insomnia Start: 03-02-2025 End: 03-02-2025 ambulatory CYNTHIA LEOGN Not Available Start: 02-27-2025 End: 02-27-2025 Telephone encounter Cynthia Leong MD Work Phone: [facility] Start: 02-22-2025 Registered Recurring Cory Barahona MD -[facility] Work Phone: Start: 02-22-2025 End: 02-22-2025 ambulatory PHYSICIAN NO [facility] Work Phone: Start: 02-22-2025 End: 02-22-2025 Patient encounter procedure Cory Barahona MD [facility] Work Phone: Start: 02-19-2025 End: 02-19-2025 ambulatory PHYSICIAN NO [facility] Work Phone: Start: 02-19-2025 End: 02-19-2025 Patient encounter procedure Ziggy White DO [facility] Work Phone: Start: 02-19-2025 End: 02-19-2025 Patient encounter procedure Ziggy White DO [facility] Start: 02-19-2025 End: 02-19-2025 ambulatory PHYSICIAN NO [facility] Work Phone: Start: 02-16-2025 End: 02-16-2025 Telephone encounter Cynthia Leong MD Work Phone: [facility] Start: 02-13-2025 End: 02-13-2025 Bamboo flowsheet Cynthia Leong MD Work Phone: [facility] Start: 02-13-2025 End: 02-13-2025 Saturnino flowsheet Cynthia Leong MD Work Phone: [facility] Start: 02-13-2025 End: 02-13-2025 Office outpatient visit 25 minutes Cynthia Leong MD Work Phone: [facility] Comment on above: Monoclonal gammopath y (Primary Dx); Pain in both lower extremities; Frequent falls; Chronic midline low back pain with left-sided sciatica; Claudication Start: 02-13-2025 End: 02-13-2025 ambulatory CYNTHIA LEONG Not Available Start: 02-07-2025 End: 02-07-2025 Telephone encounter Cynthia Leong MD Work Phone: [facility] Start: 01-29-2025 End: 01-29-2025 ambulatory PHYSICIAN NO FAMILY Facility:[facility] Start: 01-29-2025 End: 01-29-2025 Patient encounter procedure Ziggy White DO -[facility] Work Phone: Start: 01-11-2025 End: 01-11-2025 ambulatory Wilman Wise [facility] Work Phone: Start: 01-11-2025 End: 01-11-2025 Departed Referred Wilman Wise MD Work Phone: [facility] Start: 01-11-2025 End: 01-12-2025 Clinisync Result Encounter Generic External Data Provider [facility] External Department Unsolicited Start: 01-11-2025 End: 01-12-2025 Clinisync Result Encounter Generic External Data Provider [facility] External Department Unsolicited Start: 01-08-2025 End: 01-10-2025 Telephone encounter Cynthia Leong MD Work Phone: [facility] Comment on above: Broken wrist Start: 01-04-2025 End: 01-04-2025 Bamboo flowsheet Clara Nicolasbley SECURITY SERGEANT [facility] Start: 01-04-2025 End: 01-04-2025 Bamboo flowsheet Clarajomar Valenzuelabley SECURITY SERGEANT [facility] Start: 01-04-2025 End: 01-04-2025 ambulatory Clarajomar Baly SECURITY SERGEANT [facility] Comment on above: Lumbar paraspinal mu scle spasm (Primary Dx); Weakness of both lower extremities Start: 01-02-2025 End: 01-02-2025 Bamboo flowsheet Shiva Franklin PT Work Phone: [facility] Start: 01-02-2025 End: 01-02-2025 Bamboo flowsheet Shiva Franklin PT Work Phone: [facility] Start: 01-02-2025 End: 01-02-2025 ambulatory Shiva Franklin PT Work Phone: [facility] Comment on above: Lumbar paraspinal mu scle spasm (Primary Dx); Weakness of both lower extremities; Frequent falls Start: 2024 End: 2024 ambulatory CYNTHIA LEONG Not Available Start: 12-28-2024 End: 12-28-2024 ambulatory CLARA RICHTER Not Available Start: 12-26-2024 End: 12-26-2024 Bamboo flowsheet Clara Kelbley SECURITY SERGEANT [facility] Start: 12-26-2024 End: 12-26-2024 Bamboo flowsheet Clara Kelbley SECURITY SERGEANT [facility] Start: 12-26-2024 End: 12-26-2024 ambulatory Clara Kelbley SECURITY SERGEANT [facility] Comment on above: Lumbar paraspinal mu scle spasm (Primary Dx); Weakness of both lower extremities; Frequent falls Start: 12-21-2024 End: 12-21-2024 Bamboo flowsheet Clara Kelbley SECURITY SERGEANT [facility] Start: 12-21-2024 End: 12-21-2024 Bamboo flowsheet Clarajomar Baly SECURITY SERGEANT [facility] Start: 12-21-2024 End: 12-21-2024 ambulatory Clara Baly SECURITY SERGEANT [facility] Comment on above: Lumbar paraspinal mu scle spasm (Primary Dx); Weakness of both lower extremities; Frequent falls Start: 12-15-2024 End: 12-15-2024 Refill Nikki Coughlin MA [facility] Comment on above: Gastroesophageal ref lux disease without esophagitis; Mixed hyperlipidemia ([facility]); Essential hypertension ([facility]); Acquired hypothyroidism ([facility]) Start: 12-14-2024 End: 12-14-2024 Bamboo flowsheet Clara Baly SECURITY SERGEANT [facility] Start: 12-14-2024 End: 12-14-2024 Bamboo flowsheet Clara Baly SECURITY SERGEANT [facility] Start: 12-14-2024 End: 12-14-2024 ambulatory Clara Baly SECURITY SERGEANT [facility] Comment on above: Lumbar paraspinal mu scle spasm (Primary Dx); Weakness of both lower extremities; Frequent falls Start: 12-11-2024 End: 12-11-2024 Bamboo flowsheet Clara Baly SECURITY SERGEANT [facility] Start: 12-11-2024 End: 12-11-2024 Bamboo flowsheet Clara Baly SECURITY SERGEANT [facility] Start: 12-11-2024 End: 12-12-2024 ambulatory Clara Baly SECURITY SERGEANT [facility] Comment on above: Lumbar paraspinal mu scle spasm (Primary Dx); Weakness of both lower extremities; Frequent falls Essential hypertensi on ([facility]) Start: 12-07-2024 End: 12-07-2024 Bamboo flowsheet Shiva Franklin PT Work Phone: [facility] Start: 12-07-2024 End: 12-07-2024 Bamboo flowsheet Shiva Franklin PT Work Phone: [facility] Start: 12-07-2024 End: 12-07-2024 ambulatory Shiva Franklin PT Work Phone: [facility] Comment [...] non-recurrent maxillary sinusitis (Primary Dx); Thrombocytopenia, unspecified ([facility]/HCC); CKD stage 3a, GFR 45-59 ml/min ([facility]/HCC); Pulmonary hypertension, unspecified ([facility]/HCC); Other pancytopenia ([facility]/HCC) Start: 10-06-2024 End: 10-06-2024 ambulatory CYNTHIA LEONG Not Available Start: 10-06-2024 End: 10-06-2024 Bamboo flowsheet Cynthia Leong MD Work Phone: [facility] Start: 10-06-2024 End: 10-06-2024 Bamboo flowsheet Cynthia Leong MD Work Phone: [facility] Start: 09-27-2024 End: 09-27-2024 Telephone encounter Cynthia Leong MD Work Phone: [facility] Start: 09-26-2024 End: 09-26-2024 Bamboo flowsheet Roslyn A Rachna JAIL KEEPER Work Phone: [facility] Start: 09-26-2024 End: 09-26-2024 Bamboo flowsheet Roslyn A [place] JAIL KEEPER Work Phone: [facility] Start: 09-26-2024 End: 09-26-2024 Office outpatient visit 15 minutes Roslyn Redding JAIL KEEPER Work Phone: [facility] Comment on above: Viral URI with cough (Primary Dx); Acute cough; Nasal congestion Start: 09-26-2024 End: 09-26-2024 ambulatory ROSLYN REDDING Not Available Start: 09-04-2024 End: 09-04-2024 Refill Libby Ward NP Work Phone: [facility] Comment on [...] 07-25-2024 End: 07-25-2024 Bamboo flowsheet Mariano Ghosh SECURITY SERGEANT [facility] Start: 07-25-2024 End: 07-25-2024 Bamboo flowsheet Mariano Ghosh SECURITY SERGEANT [facility] Start: 07-25-2024 End: 07-25-2024 ambulatory Mariano Ghosh SECURITY SERGEANT [facility] Comment on above: Spinal stenosis, uns pecified spinal region (Primary Dx); Lumbar and sacral arthritis Start: 07-19-2024 End: 07-19-2024 ambulatory Mariano Ghosh SECURITY SERGEANT [facility] Comment on above: Spinal stenosis, uns pecified spinal region (Primary Dx); Lumbar and sacral arthritis Start: 07-18-2024 End: 07-19-2024 ambulatory Mariano Ghosh SECURITY SERGEANT [facility] Comment on above: Spinal stenosis, uns pecified spinal region (Primary Dx); Lumbar and sacral arthritis Start: 07-18-2024 End: 07-18-2024 Bamboo flowsheet Mariano Ghosh SECURITY SERGEANT [facility] Start: 07-18-2024 End: 07-18-2024 Bamboo flowsheet Mariano Ghosh SECURITY SERGEANT [facility] Start: 07-14-2024 End: 07-14-2024 Bamboo flowsheet Alana Lopez PT [facility] Start: 07-14-2024 End: 07-14-2024 Bamboo flowsheet Alana Lopez PT [facility] Start: 07-14-2024 End: 07-14-2024 ambulatory Alana Lopez PT [facility] Comment on above: Spinal stenosis, uns pecified spinal region (Primary Dx); Lumbar and sacral arthritis Start: 07-11-2024 End: 07-11-2024 ambulatory Mariano Ghosh SECURITY SERGEANT [facility] Comment on above: Spinal stenosis, uns pecified spinal region (Primary Dx); Lumbar and sacral arthritis Start: 07-04-2024 End: 07-04-2024 ambulatory Mariano Ghosh SECURITY SERGEANT [facility] Comment on above: Spinal stenosis, uns pecified spinal region (Primary Dx); Lumbar and sacral arthritis Start: 06-30-2024 End: 06-30-2024 ambulatory Mariano Ghosh SECURITY SERGEANT [facility] Comment on above: Spinal [...] 06-20-2024 End: 06-20-2024 Bamboo flowsheet Mariano Stefano SECURITY SERGEANT [facility] Start: 06-20-2024 End: 06-20-2024 Bamboo flowsheet Mariano Stefano SECURITY SERGEANT [facility] Start: 06-20-2024 End: 06-20-2024 ambulatory Mariano Stefano SECURITY SERGEANT [facility] Comment on above: Spinal stenosis, uns pecified spinal region (Primary Dx); Lumbar and sacral arthritis Start: 06-16-2024 End: 06-16-2024 Bamboo flowsheet Mariano Ghosh SECURITY SERGEANT [facility] Start: 06-16-2024 End: 06-16-2024 Bamboo flowsheet Mariano Ghosh SECURITY SERGEANT [facility] Start: 06-16-2024 End: 06-16-2024 ambulatory Mariano Ghosh SECURITY SERGEANT [facility] Comment on above: Spinal stenosis, uns pecified spinal region (Primary Dx); Lumbar and sacral arthritis Start: 06-14-2024 End: 06-14-2024 Bamboo flowsheet Mariano Stefano SECURITY SERGEANT [facility] Start: 06-14-2024 End: 06-14-2024 Bamboo flowsheet Mariano Stefano SECURITY SERGEANT [facility] Start: 06-14-2024 End: 06-14-2024 ambulatory Mariano Stefano SECURITY SERGEANT [facility] Comment on above: Spinal stenosis, uns pecified spinal region (Primary Dx); Lumbar and sacral arthritis Start: 06-13-2024 End: 06-13-2024 Refill Cynthia Leong MD Work Phone: [facility] Comment on above: Essential hypertensi on (CMS/HCC) Start: 06-07-2024 End: 06-07-2024 ambulatory Mariano Stefano SECURITY SERGEANT [facility] Comment on above: Spinal [...] 05-22-2024 End: 05-22-2024 Orders Only Libby Ward NP Work Phone: [facility] Comment on above: Acute cystitis witho ut hematuria (Primary Dx) Start: 05-18-2024 End: 05-18-2024 Bamboo flowsheet Divina Castellano JAIL KEEPER Work Phone: [facility] Start: 05-18-2024 End: 05-18-2024 Bamboo flowsheet Divina Castellano JAIL KEEPER Work Phone: [facility] Start: 05-18-2024 End: 05-18-2024 Telephone encounter Cynthia Leong MD Work Phone: [facility] Comment on above: Vertigo (Called to o [facility] PT Eval for vertigo brett/ Jaquan Lopez PT on 05/23 @ 8:00 am; requested call back terry.); Call Back (She contacted and scheduled per offer 05/23 w/ Jaquan Lopez PT.) Start: 05-18-2024 End: 05-18-2024 Office outpatient visit 25 minutes Divina Castellano JAIL KEEPER Work Phone: [facility] Comment on above: Vertigo (Primary Dx) ; Spinal stenosis, unspecified spinal region; Lumbar and sacral arthritis; Dysuria; Essential hypertension ([facility]) Start: 05-18-2024 End: 05-18-2024 ambulatory DIVINA CASTELLANO Not Available Start: 05-17-2024 End: 05-17-2024 Refill Cynthia Leong MD Work Phone: [facility] Comment on above: Gastroesophageal ref lux disease without esophagitis Start: 05-15-2024 End: 05-15-2024 ambulatory Kulwant García MD Facility: [facility] Start: 04-17-2024 End: 04-17-2024 ambulatory Kulwant García MD Facility: [facility] Start: 04-03-2024 End: 04-03-2024 ambulatory Kulwant García MD Facility: [facility] Start: 03-21-2024 End: 03-21-2024 ambulatory ALANA LOPEZ Not Available Start: 03-14-2024 End: 03-14-[address] Not Available Start: 03-14-2024 End: 03-14-2024 ambulatory ALANA LOPEZ Not Available Start: 03-13-2024 End: 03-13-2024 ambulatory DIVINA PARSON Not Available Start: 03-10-2024 End: 03-10-2024 ambulatory CYNTHIA HARRISONAN Not Available Start: 09-27-2023 End: 09-27-2023 ambulatory Kulwant García MD Facility:[facility] Start: 09-13-2023 End: 09-13-2023 ambulatory Kulwant García MD Facility:[facility] Start: 05-10-2023 Office outpatient vi sit 25 minutes Ap [facility] Start: 05-10-2023 End: 05-10-2023 ambulatory JAIL KEEPER-C Roslyn Redding Work Phone: [facility] Work Phone: Start: 05-10-2023 End: 05-10-2023 Patient encounter procedure JAIL KEEPER-C Roslyn Redding Work Phone: [facility] Work Phone: Start: 04-29-2023 (PROC) PROCEDURE Ap Holland [facility] Start: 04-29-2023 End: 04-29-2023 ambulatory Ap Holland Other [employer] Other Start: 04-06-2023 End: 04-06-2023 ambulatory Ap Holland Other [employer] Other Start: 04-06-2023 Office outpatient vi sit 25 minutes Ap Holland [facility] Start: 03-23-2023 End: 03-23-2023 ambulatory Ap Holland Other [employer] Other Start: 03-23-2023 Office outpatient vi sit 15 minutes Ap Holland [facility] Start: 03-16-2023 (PROC) PROCEDURE Ap [facility] Start: 03-16-2023 End: 03-16-2023 ambulatory Ap Holland Other [employer] Other Start: 03-09-2023 End: 03-09-2023 ambulatory Ap Holland Other [employer] Other Start: 03-09-2023 Telephone encounter Ap [facility] Start: 03-08-2023 End: 03-08-2023 ambulatory Ap Holland Other [employer] Other Start: 03-08-2023 Office consultation new/estab patient 60 min Ap Holland [facility] Procedures Date Procedure Procedure Detail Performing Clinician Start: 02-19-2025 Plain X-ray of left shoulder PHYSICIAN NO FAMILY Start: 02-19-2025 Plain X-ray of left wrist PHYSICIAN NO FAMILY Start: 01-29-2025 Plain X-ray of left shoulder PHYSICIAN NO FAMILY Start: 01-29-2025 Plain X-ray of left wrist PHYSICIAN NO FAMILY Start: 01-11-2025 URINE CULTURE - [facility] External Data Provider Start: 01-11-2025 Urine culture PHYSICIAN NO FAMILY Start: 09-26-2024 STATUS COVID-19/FLU Angella Redding JAIL KEEPER Work Phone: Start: 06-22-2024 Complete blood count with white cell differential, automated Cynthia Leong MD Work Phone: Start: 06-22-2024 Comprehensive metabo lic panel Cynthia Leong MD Work Phone: Start: 06-22-2024 Lipid panel Cynthia castaneda MD Work Phone: Start: 06-22-2024 TSH W/REFLEX TO FT4 Swathi Leong MD Work Phone: Start: 05-18-2024 Urnls dip stick/tabl et rgnt non-auto w/o micrscp Divina Devlin Gray JAIL KEEPER Work Phone: Start: 05-10-2023 Plain X-ray of right hip JAIL KEEPER-C Roslyn Redding Work Phone: Plan of Treatment Date Care Activity Detail Author Start: 2025 Medicare Annual Well ness (AWV) Medicare Annual Wellness (AWV) [facility] Start: 04-09-2025 Influenza vaccination [facility] Start: 03-02-2025 End: 03-02-2025 Professional / ancillary services management [facility] Start: 02-19-2025 Plain X-ray of left shoulder XR shoulder LT min 2V* [facility] Start: 02-19-2025 Plain X-ray of left wrist XR wrist LT min 3V* [facility] Start: 02-19-2025 XR Shoulder - left Views [facility] Start: 02-19-2025 XR Wrist - left GE 3 Views [facility] Start: 02-14-2025 End: 02-14-2026 MR Lumbar spine WO contrast MR lumbar spine wo contrast Imaging Routine Pain in both lower extremities Frequent falls Expected: 02/14/2025, Expires: 02/14/2026 [facility] Comment on above: Expected: 02/14/2025 , Expires: 02/14/2026 Start: 02-14-2025 End: 02-14-2026 Vascular US ankle brachial index (KWABENA) without exercise Vascular US ankle brachial index (KWABENA) without exercise Imaging Routine Frequent falls Chronic midline low back pain with left-sided sciatica Claudication Expected: 02/14/2025, Expires: 02/14/2026 [facility] Work Phone: Comment on above: Expected: 02/14/2025 , Expires: 02/14/2026 Start: 02-13-2025 End: 02-13-2025 Patient encounter procedure 02/13/2025 10:20 AM EDT Office Visit [facility] [address] [facility] [place] [id number] Cynthia Leong MD [address] [place] [address] Arrived [facility] Comment on above: Arrived Start: 02-01-2025 End: 02-01-2025 ambulatory 02/01/2025 11:30 AM EDT Treatment [facility] [address] [place] [address] Clara Richter, SECURITY SERGEANT [facility] Start: 01-29-2025 End: 01-29-2025 ambulatory 01/29/2025 11:00 AM EDT Treatment [facility] [address] [place] [address] Shiva Franklin, PT [address] [place] [address] [facility] Start: 01-25-2025 End: 01-25-2025 ambulatory 01/25/2025 11:30 AM EDT Treatment [facility] [address] [place] [address] Hill Saunders, SECURITY SERGEANT [facility] Start: 01-22-2025 End: 01-22-2025 ambulatory 01/22/2025 10:30 AM EDT Treatment [facility] [address] [place] [address] Clara Richter, SECURITY SERGEANT [facility] Start: 01-18-2025 End: 01-18-2025 ambulatory 01/18/2025 11:30 AM EDT Treatment [facility] [address] [place] [address] Hill Saunders SECURITY SERGEANT [facility] Start: 01-15-2025 End: 01-15-2025 ambulatory 01/15/2025 10:30 AM EDT Treatment [facility] [address] [place] [address] Clara Richter, SECURITY SERGEANT [facility] Start: 01-11-2025 Urine culture [facility] Start: 01-11-2025 Bacteria identified in Urine by Culture Urine Culture [facility] Start: 01-11-2025 End: 01-11-2025 ambulatory 01/11/2025 10:30 AM EDT Treatment [facility] [address] [facility] [address] [place] [address] Shiva Franklin, PT [address] [facility] [address] [place] [address] [facility] Start: 01-08-2025 End: 01-08-2025 ambulatory 01/08/2025 1:30 PM EDT Treatment [facility] [address] [facility] [address] [place] [address] Clara Richter, SECURITY SERGEANT [facility] Start: 01-04-2025 End: 01-04-2025 ambulatory [facility] Comment on above: Arrived Start: 2024 End: 2024 Patient encounter procedure 2024 10:00 AM EDT Office Visit [facility] [address] [facility] [place] [id number] Cynthia Leong MD [address] [facility] [place] [address] [facility] Start: 12-28-2024 End: 12-28-2024 ambulatory 12/28/2024 11:30 AM EDT Treatment [facility] [address] [facility] [address] [place] [address] Clara Richter, SECURITY SERGEANT [facility] Start: 12-26-2024 End: 12-26-2024 ambulatory 12/26/2024 10:00 AM EDT Treatment [facility] [address] [facility] [address] [place] [address] Clara Richter, SECURITY SERGEANT Lumbar paraspinal muscle spasm (Primary Dx); Weakness [...] [address] [facility] [address] [place] [address] Shiva Franklin, PT [address] [place] [address] [facility] Start: 12-14-2024 End: 12-14-2024 ambulatory [facility] Comment on above: Arrived Start: 12-11-2024 End: 12-11-2024 ambulatory [facility] Comment on above: Arrived Start: 12-07-2024 End: 12-07-2024 ambulatory 12/07/2024 2:00 PM EDT Evaluation [facility] [address] [facility] [address] [place] [address] Shiva Franklin, PT [address] [facility] [address] [place] [address] Arrived [facility] Comment on above: Arrived Start: 10-06-2024 End: 10-06-2024 Patient encounter procedure 10/06/2024 2:40 PM EST Office Visit [facility] [address] [facility] [place] [phone] Cynthia Leong MD [address] [facility] [place] [address] Arrived [facility] Comment on above: [...] Office Visit [facility] [address] [place] [phone] Roslyn Redding NP [address] [place], [place] [id number] Arrived [facility] Comment on above: Arrived Start: 08-03-2024 Medicare Annual Well ness (AWV) Medicare Annual Wellness (AWV) [facility] Start: 08-03-2024 End: 08-03-2024 ambulatory 08/03/2024 12:30 PM EST Treatment [facility] [address] [place] [address] Alana Lopez, PT [facility] Start: 07-31-2024 End: 07-31-2024 ambulatory 07/31/2024 12:00 PM EST Treatment [facility] [address] [place] [address] Mariano Ghosh, SECURITY SERGEANT [facility] Start: 07-28-2024 End: 07-28-2024 ambulatory 07/28/2024 1:00 PM EST Treatment [facility] [address] [place] [address] Alana Lopez, PT Arrived [facility] Comment on above: Arrived Start: 07-27-2024 End: 07-27-2024 ambulatory [facility] Start: 07-25-2024 End: 07-25-2024 ambulatory [facility] Comment on above: Arrived Start: 07-19-2024 End: 07-19-2024 ambulatory 07/19/2024 1:00 PM EST Treatment [facility] [address] [place] [address] Mariano Ghosh, SECURITY SERGEANT [facility] Start: 07-18-2024 End: 07-18-2024 ambulatory 07/18/2024 4:00 PM EST Treatment [facility] [address] [place] [address] Mariano Ghosh, SECURITY SERGEANT Arrived [facility] Comment on above: Arrived Start: 07-17-2024 End: 07-17-2024 ambulatory 07/17/2024 12:30 PM EST Treatment [facility] [address] [place] [address] Mariano Ghosh, SECURITY SERGEANT [facility] Start: 07-14-2024 End: 07-14-2024 ambulatory [facility] Comment on above: Arrived Start: 07-11-2024 End: 07-11-2024 ambulatory 07/11/2024 12:30 PM EST Treatment [facility] [address] [place] [address] Mariano Ghosh, SECURITY SERGEANT [facility] Start: 07-04-2024 End: 07-04-2024 ambulatory 07/04/2024 12:30 PM EST Treatment [facility] [address] [place] [address] Mariano Ghosh, SECURITY SERGEANT [facility] Start: 06-30-2024 End: 06-30-2024 ambulatory 06/30/2024 12:00 PM EST Treatment [facility] [address] [place] [address] Mariano Ghosh, SECURITY SERGEANT [facility] Start: 06-23-2024 End: 06-23-2024 ambulatory 06/23/2024 10:30 AM EST Treatment [facility] [address] [facility] [address] [place] [address] Alana Lopez, PT [facility] Start: 06-22-2024 End: 06-22-2024 Patient encounter procedure 06/22/2024 2:30 PM EST Office Visit [facility] [address] [place] [address] Cynthia Leong MD [address] [place] [address] [facility] Start: 06-20-2024 End: 06-20-2024 ambulatory 06/20/2024 2:00 PM EST Treatment [facility] [address] [facility] [address] [place] [address] Mariano Ghosh, SECURITY SERGEANT [facility] Start: 06-16-2024 End: 06-16-2024 ambulatory [facility] Comment on above: Arrived Start: 06-14-2024 End: 06-14-2024 ambulatory 06/14/2024 12:30 PM EST Treatment [facility] [address] [facility] [address] [place] [address] Mariano Ghosh SECURITY SERGEANT [facility] Start: 06-07-2024 End: 06-07-2024 ambulatory 06/07/2024 2:30 PM EDT Treatment [facility] [address] [facility] [address] [place] [address] Mariano Ghosh, SECURITY SERGEANT [facility] Start: 06-05-2024 End: 06-05-2024 [...] 04-09-2024 Influenza vaccination Influenza Vacc ine (#1) [facility] Bacteria identified in Urine by Culture Urine culture Microbiology Routine Dysuria Ordered: 05/18/2024 [facility] Work Phone: Comment on above: Ordered: 05/18/2024 Ireo-1-Vfrpwpvpuefbs [Mass/volume] in Serum or Plasma [facility] Comprehensive metabo lic 1999 panel - Serum or Plasma [facility] Comprehensive metabo lic 1999 panel - Serum or Plasma [facility] Copper measurement [facility] Radiologic examinati on osseous survey [facility] Radiologic examinati on osseous survey [facility] URINE CULTURE - [facility] URINE CULTU RE - [facility] Lab Routine 01/11/2025 9:20 PM EDT [facility] Immunizations Immunization Date Immunization Notes Care Provider Fa cility 07-08-2023 Pneumococcal Conjuga te PCV 20 Cynthia Leong MD Work Phone: [facility] 05-11-2023 influenza, high dose seasonal, preservative-free Cynthia Leong MD Work Phone: [facility] 05-11-2023 influenza virus vacc ine, unspecified formulation Cynthia Leong MD Work Phone: [facility] 06-23-2022 Influenza, High-dose Seasonal, Quadrivalent, Preservative Free Cynthia Leong MD Work Phone: [facility] 05-09-2021 Influenza, High-dose Seasonal, Quadrivalent, Preservative Free Cynthia Leong MD Work Phone: [facility] 06-21-2020 influenza, high dose seasonal, preservative-free Cynthia Leong MD Work Phone: [facility] Payers Date Payer Category Payer Self-pay 2023 Private Health Insurance 2021 Medicaid AETNA MEDICARE A DVANTAGE [id number] 2021 Medicare AETNA MEDICARE A DVANTAGE AETNA MEDICARE REPLACEMENT [id number] 2021-Present [address] [place] [id number] [id number]. [id number] 2021 Medicare [id number] 2.16840.1.243699.19 1945 Unknown [id number] 2.840.1.429926.3.579.2. 1945 Unknown [id number] 2.16840.1.003483.3.579.2. 1943 Unknown [id number] 2.16840.1.206389.3.579.2. 1943 Unknown [id number] 2.840.1.062480.3.579.2. 1943 Unknown [id number] 2.840.1.462007.3.579.2. 1943 Unknown [id number] 2.16840.1.424237.3.579.2. 1258 1943 Unknown [id number] 2.16840.1.969496.3.579.2. 1258 1943 Unknown [id number] 2.16840.1.821485.3.579.2. 1258 1943 Unknown [id number] 2.16840.1.474063.3.579.2. 1258 1943 Unknown [id number] 2.16.840.1.891744.3.579.2. 1258 1943 Unknown [id number] 2.16.840.1.190983.3.579.2. 1258 1943 Unknown [id number] 2.16.840.1.479350.3.579.2. 1258 1943 Unknown [id number] 2.16.840.1.416316.3.579.2. 1258 1943 Unknown [id number] 2.16.840.1.374326.3.579.2. 1258 1943 Unknown [id number] 2.16.840.1.071262.3.579.2. 1258 1943 Unknown [id number] 2.16840.1.965256.3.579.2. 1258 1943 Unknown [id number] 2.16840.1.075189.3.579.2. 1258 1943 Unknown [id number] 2.16.840.1.654009.3.579.2. 1258 1943 Unknown [id number] 2.16840.1.115581.3.579.2. 1258 1943 Unknown [id number] 2.16.840.1.437412.3.579.2. 1258 1943 Unknown [id number] 2.16.840.1.395933.3.579.2. 1258 1943 Unknown [id number] 2.16.840.1.947798.3.579.2. 1258 1943 Unknown [id number] 2.16.840.1.223707.3.579.2. 1258 1943 Unknown [id number] 2.16.840.1.072566.3.579.2. 1258 1943 Unknown [id number] 2.16.840.1.361138.3.579.2. 125 1943 Unknown [id number] 2.16.840.1.007152.3.579.2. 1258 1943 Unknown [id number] 2.16.840.1.775845.3.579.2. 1258 1943 Unknown [id number] 2.16.840.1.397806.3.579.2. 1258 1943 Unknown [id number] 2.16.840.1.159542.3.579.2. 1258 1943 Unknown [id number] 2.16.840.1.923516.3.579.2. 1258 1943 Unknown [id number] 2.16.840.1.122450.3.579.2. 1258 1943 Unknown [id number] 2.16.840.1.860805.3.579.2. 1258 1943 Unknown [id number] 2.16.840.1.339832.3.579.2. 1258 1943 Unknown [id number] 2.16.840.1.888703.3.579.2. 1258 1943 Unknown [id number] 2.16.840.1.978792.3.579.2. 1258 1943 Unknown [id number] 2.16.840.1.939906.3.579.2. 1258 1943 Unknown [id number] 2.16.840.1.728375.3.579.2. 1258 1943 Unknown [id number] 2.16.840.1.536102.3.579.2. 1258 1943 Unknown [id number] 2.16.840.1.214016.3.579.2. 1258 1943 Unknown [id number] 2.16.840.1.249207.3.579.2. 1258 1943 Unknown [id number] 2.16.840.1.950522.3.579.2. 1258 1943 Unknown [id number] 2.16.840.1.433586.3.579.2. 1258 1943 Unknown [id number] 2.16.840.1.352703.3.579.2. 1258 1943 Unknown [id number] 2.16.840.1.022593.3.579.2. 1258 1943 Unknown [id number] 2.16.840.1.315519.3.579.2. 1259 Medicare [id number] 2.16.840.1.567316.19 Unknown [id number] 2.16.840.1.831151.3.579.2. 531 Unknown [id number] 2.16.840.1.106998.3.579.2. 531 Unknown [id number] 2.16.840.1.906527.3.579.2. 531 Unknown [id number] 2.16.840.1.462133.3.579.2. 531 Social History Date Type Detail Facility Start: 09-02-2023 End: 2024 Sex Assigned At [facility] Other Start: 1945 Sex Assigned At Female [facility] Start: 02-05-2023 End: 02-22-2025 Tobacco smoking status MTIS Never smoked tobacco [facility] Work Phone: Start: 02-05-2023 Tobacco use and exposure Smokeless tobacco non-user [facility] Start: 03-14-2024 End: 02-13-2025 Alcoholic beverage intake Ex-drinker (finding) [facility] [...] or more drinks on 1 occasion? Never [facility] Start: 07-07-2023 Alcohol Comment 1 glass of win e past year. Caffeine intake : 1-2 cups/day coffee [facility] Healthcare Start: 1945 Sex assigned at Not on file [facility] Start: 10-21-2022 Gender identity Identifies as female gender (finding) [facility] Start: 09-26-2024 Alcohol Comment Caffeine intak e : 1-2 cups/day coffee [facility] Tobacco smoking stat [facility] Unknown if ever smoked [facility] Work Phone: Start: 01-13-2025 Sex Female (finding) [facility] Clinical Notes 03-08-2023 to 03-14-2025 Telephone Encounter - Cynthia Leong MD - 03/13/2025 1:07 PM EDTTelephone Encounter - Cynthia Leong MD - 03/13/2025 1:07 PM EDTTelephone Encounter - Donn Darling - 03/13/2025 10:50 AM EDT Note Date & Type Note Facility 03-14-2025 Progress note [facility] enter 03-13-2025 Telephone encount er Note Refills sent. [facility] 03-13-2025 Miscellaneous Notes Formattin g of this note might be different from the original. Refills sent. Homehealth called - asking for a refill of Dominique's Trazadone - she's not sleeping and that works well for her . She didn't know if she was to get that or if you wanted her to try something else. Please home care nurse at [phone] documented in this encounter [facility] 03-13-2025 Telephone encount er Note Homehealth called - asking for a refill of Dominique's Trazadone - she's not sleeping and that works well for her . She didn't know if she was to get that or if you wanted her to try something else. Please home care nurse at [phone] [facility] 02-27-2025 Telephone encount er Note Temi from [facility] called to let you know the pt had a fall last night with no injuries, she also stated that the pt took a double dose of traZODone. If you have any questions you can call her at [phone]. [facility] 02-27-2025 Miscellaneous Notes Formattin g of this note might be different from the original. Temi from [facility] called to let you know the pt had a fall last night with no injuries, she also stated that the pt took a double dose of traZODone. If you have any questions you can call her at [phone]. documented in this encounter [facility] 02-22-2025 Progress note [facility] enter 02-16-2025 Telephone encount er Note [employer] Infrastructure Project Manager This is Jesse Liz calling for Yvonne Liz. Her birthday is 1945. We were in the other day and we talked to Cynthia about medications and everything. But I need to get something a sleep aid stronger than across the counter. I got something that will help her sleep. I do not think she slept at All since we were in the office. And the other thing is pain for her shoulder that is severe. And we need to get some kind of a pain relief for her shoulder. If Cynthia has any questions, call me [phone], thank you. [facility] 02-16-2025 Miscellaneous Notes Formattin g of this note might be different from the original. [employer] Project Manager This is Jesse Liz calling for Yvonne Liz. Her birthday is 1945. We were in the other day and we talked to Cynthia about medications and everything. But I need to get something a sleep aid stronger than across the counter. I got something that will help her sleep. I do not think she slept at All since we were in the office. And the other thing is pain for her shoulder that is severe. And we need to get some kind of a pain relief for her shoulder. If Cynthia has any questions, call me [phone], thank you. documented in this encounter [facility] 02-13-2025 History of Presen t illness Narrative Subjective Patient ID: Dominique Liz is a 79 y.o. female who presents for Follow-up. HPI History of Present Illness The patient presents for evaluation of back pain, shoulder and wrist pain, and cold intolerance. She reports experiencing severe back pain that radiates down her legs, describing it as a constant ache rather than a cramp. This pain typically precedes episodes of her legs giving out, leading to falls. She does not experience any numbness or tingling in her legs. She also mentions feeling extremely cold, even at temperatures of 90 or 92 degrees. She is currently on thyroid medication. She has not had her leg blood flow checked recently. She has been using a cane for mobility but finds that her legs tire easily, necessitating rest periods. She tries to maintain some level of activity by walking around her home but often needs to sit down after reaching the kitchen. She has a wheelchair, a seated walker, a straight walker, a 4-legged cane, and a single cane at her disposal. She has been experiencing shoulder and wrist pain, which has been disrupting her sleep for the past week. She sustained fractures to her wrist on 01/07/2025 and her shoulder on 01/11/2025 due to falls caused by sudden weakness in her legs. Despite these incidents, she has been managing to navigate stairs with the aid of a cane and handrails. She has been advised against using her wrist due to the fracture, but it does not cause her any discomfort. Her shoulder injury, however, is more problematic. She was informed that there is no immediate treatment option for her shoulder and that they would reassess its usability after 6 months. If it remains unusable and she wishes to have it repaired, they will attempt to do so, although they are uncertain about the outcome due to a specific bone issue. She has been experiencing difficulty sleeping for the past week, often staying awake throughout the night. She attributes this to both her pain and an inability to fall asleep. She has tried ZzzQuil to aid her sleep, but it has not been effective. She occasionally experiences dizziness after falls but does not believe this is the cause of her falls. Objective BP 122/72 Pulse 81 Ht 5' 3 Wt 142 lb 12.8 oz SpO2 99% BMI 25.30 kg/m Physical Exam Physical Exam General Appearance: Normal. Vital signs: Within normal limits. HEENT: Within normal limits. Respiratory: Clear to auscultation, no wheezing, rales or rhonchi. Cardiovascular: Regular rate and rhythm, no murmurs, rubs, or gallops. Back, Musculoskeletal: Pain in the left shoulder and wrist. Limited mobility noted in the left shoulder. Extremities: no edema, palpable pulses. Skin: Warm and dry, no rash. Neurological: Normal. Psychiatric: Normal. Assessment & Plan Assessment & Plan 1. Back pain. - Reports persistent back pain radiating into her legs, often preceding episodes where her legs give out. - No numbness or tingling, but significant pain and fatigue in her legs. Pain shoots down the lateral leg and then give out. - Referral to a neurosurgeon will be made for further evaluation. - MRI of the lumbar spine will be ordered; vascular studies will be conducted to assess blood flow in the legs. 2. Shoulder and wrist pain. - History of a broken wrist and shoulder from falls in January. - Wrist fracture is minor and currently managed with a brace. - Shoulder injury is more complex, with limited treatment options discussed by previous doctors. - Continued monitoring of the shoulder's usability is recommended, with potential surgical intervention if necessary after six months. 3. Cold intolerance. - Experiences severe cold intolerance, feeling cold even at high ambient temperatures. - Previous thyroid tests in December were normal. - An abnormal protein in her blood may be contributing to these symptoms. - Referral to Dr. Mika, a venetian blind assembler, will be made for further evaluation of the abnormal protein and its potential role in her symptoms. 4. Insomnia. - Reports difficulty sleeping despite trying bvvl-vdv-wlnpjxy remedies like ZzzQuil. - Further evaluation and potential prescription sleep aids will be considered if symptoms persist. I personally spent over half of a total 30 minutes face to face with the patient in counseling and discussion and/or coordination of care as described above. documented in this encounter [facility] 02-07-2025 Telephone encount er Note The mitesh called- pt is being discharged tomorrow and asked if we would follow HH. I stated yes. [facility] 02-07-2025 Miscellaneous Notes Formattin g of this note might be different from the original. The jordenbibiana called- pt is being discharged tomorrow and asked if we would follow HH. I stated yes. documented in this encounter [facility] 01-29-2025 Evaluation note Diagnosis Onset Date Resolution Closed fracture distal radius and ulna acute January 29, 2025 2:09pm Displaced fracture of proximal end of left humerus acute January 29, 2025 2:09pm Closed fracture distal radius and ulna acute February 19, 2025 2:01pm Displaced fracture of proximal end of left humerus acute February 19, 2025 2:01pm [facility] Work Phone: 1(727) 444-870806-23-2025 Evaluation note* Diagnosis Onset Date Resolution Status Admit Date Closed fracture distal radiu s and ulna acute January 29, 2025 2:09pm Displaced fracture of proxim al end of left humerus acute January 29, 2 025 2:09pm Closed fracture distal radiu s and ulna acute February 19, 2025 2:01pm Displaced fracture of proxim al end of left humerus acute February 19, 2 025 2:01pm Closed fracture distal radiu s and ulna acute February 22, 2025 8:50am Displaced fracture of proxim al end of left humerus acute February 22, 2 025 8:50am MGUS (monoclonal gammopathy of unknown significance) acute February 22, 2025 8:50am [facility] Work Phone: 1(733) 593-768006-23-2025 Evaluation note* Diagnosis Onset Date Resolution Status Admit Date Closed fracture distal radiu s and ulna acute January 29, 2025 2:09pm Displaced fracture of proxim al end of left humerus acute January 29, 2 025 2:09pm Closed fracture distal radiu s and ulna acute February 19, 2025 2:01pm Displaced fracture of proxim al end of left humerus acute February 19, 2 025 2:01pm Closed fracture distal radiu s and ulna acute February 22, 2025 8:50am Displaced fracture of proxim al end of left humerus acute February 22, 2 025 8:50am MGUS (monoclonal gammopathy of unknown significance) acute February 22, 2025 8:50am Closed fracture distal radiu s and ulna acute March 14, 2025 1:55pm Displaced fracture of proxim al end of left humerus acute March 14, 2025 1:55pm MGUS (monoclonal gammopathy of unknown significance) acute March 1:55pm Normocytic anemia acute March 14, 2025 1:55pm Thrombocytopenia acute March 142024 1:55pm [facility] Work Phone: 1(604) 172-886606-02-2025 Telephone encounter Note* Telephone Encounter - Cynthia Leong MD - 01/08/2025 1:47 PM EDT Was [facility] able to add on the immunofixation? [id number] Miscellaneous Notes* Telephone Encounter - Cynthia Leong MD - 01/08/2025 1:47 PM EDT Was [facility] able to add on the immunofixation? documented in this encounterHCA [facility] [id number] Telephone encounter Note* Telephone Encounter - Kari Braswell - 01/08/2025 [...] seeing Dr Hendricks, the orthopedic Today at [facility], where they will set it and cast it, just wanted to put that information in the file. And we will follow up with Dr. Washington after we see Dr. Hendricks in orthopedic day. If you need to reach me, I can be found at [phone] again Nanette Car, daughter of Yvonne Liz, [phone]. Thank you so much. Have a great day. Fernanda victor. [id number] Miscellaneous Notes* Telephone Encounter - Kari Braswell - 01/08/2025 [...] seeing Dr Hendricks, the orthopedic Today at [facility], where they will set it and cast it, just wanted to put that information in the file. And we will follow up with Dr. Washington after we see Dr. Hendricks in orthopedic day. If you need to reach me, I can be found at [phone] again Nanette Car, daughter of Yvonne Liz, [phone]. Thank you so much. Have a great day. Fernanda victor. documented in this encounterHCA [facility] [id number] Telephone encounter Note* Telephone Encounter - Rose Snow - 01/08/2025 8:03 AM EDT She called noting Dominique had broken wrist this weekend. She was at the ER yesterday and today she has an appt w/ Ruthie for ortho. Nanette cx her PT out thru this month; she said Dominique has a fu w/ Dr. Leong on and post that she'll call re: recommendation(s). [facility] [id number] Miscellaneous Notes* Telephone Encounter - Rose Snow - 01/08/2025 8:03 AM EDT She called noting Dominique had broken wrist this weekend. She was at the ER yesterday and today she has an appt w/ Ruthie for ortho. Nanette cx her PT out thru this month; she said Dominique has a fu w/ Dr. Leong on and post that she'll call re: recommendation(s). documented in this encounterHCA [facility] [id number] History of Present illness Narrative* Shiva Franklin, PT - 01/02/2025 11:30 AM EDT Images [...] to be instructed in home exercise program. Mcfp Goals: To be met in 10 weeks [...] Please sign below. Date: documented in this [facility]05-09-2025 Miscellaneous Notes* Telephone Encounter - Cynthia Leong MD - 12/15/2024 1:04 PM EDT Refills sent. * Telephone Encounter - Nikki Coughlin MA - 12/15/2024 12:33 PM EDT Pharmacy and dosage correct documented in this [facility]05-09-2025 Telephone encounter Note* Telephone Encounter - Cynthia Leong MD - 12/15/2024 1:04 PM EDT Refills sent. [id number] Telephone encounter Note* Telephone Encounter - Nikki Coughlin MA - 12/15/2024 12:33 PM EDT Pharmacy and dosage correct [id number] History of Present illness Narrative* Shiva Franklin, PT - 12/07/2024 2:00 PM EDT Images from the original note [...] startedfalling a lot more. Precautions: fall risk Subjective [...] to be instructed in home exercise program. Train Braker Goals: To be met in 10 weeks [...] Please sign below. Date: documented in this encounterHCA [facility] [id number] History of Present illness Narrative* Cynthia Leong MD - 10/06/2024 2:40 PM EST Images from the original note were not [...] symptoms. She then reverted to NyQuil, which shehad been using for a week prior, and it provided some relief, allowing her to sleep through most ofthe night. She has experienced 4 falls within [...] infections. The prescription will be sent to [facility]. 2. Falls. The patient reports multiple falls over the past two weeks, likely due to spinal stenosis causing leg weakness and wobbling. No pain is associated with the falls, but there is tenderness in the elbowand head from a recent incident. 3. Low Blood Count. The patient has a history of low white blood cell and platelet counts. A recheck of the blood countwill be conducted to monitor any changes. If the counts are still low, further evaluation by a venetian blind assembler may be considered. She has previously refused the consult, but is agreeable to repeat labs.She will consider a consult depending on the [...] symptoms. Other pancytopenia (CMS/HCC) documented in this encounterHCA [facility] [id number] Telephone encounter Note* Telephone Encounter - Donn Darling - 09/27/2024 11:40 AM EST Dominique called - she was in yesterday w Shilpi but is asking for an Antibiotic to be called in. She said she feels miserable . Dominique - if you could call and let her know either way, ty [phone] [facility] [id number] Miscellaneous Notes* Telephone Encounter - Donn Phong - 09/27/2024 11:40 AM EST Dominique called - she was in yesterday w Shilpi but is asking for an Antibiotic to be called in. She said she feels miserable . Dominique - if you could call and let her know either way, ty [phone] documented in this encounterHCA [facility] [id number] History of Present illness Narrative* Roslyn Redding NP - 09/26/2024 11:00 AM EST Images from the original note were not [...] providing temporary relief. She also mentions that analia, who started exhibiting similar symptoms on , [...] associated with rest 12/01/2018 Decreased platelet count ([facility]) 01/01/2023 Essential hypertension ([facility]) 10/15/2016 Gastro-esophageal reflux disease without esophagitis 11/24/2017 GERD (gastroesophageal reflux disease) Hypertension ([facility]) Hyperthyroidism ([facility]) Hypothyroid ([facility]) Hypothyroidism, unspecified ([facility]) 05/11/2016 Lumbar and sacral arthritis 01/01/2023 Mixed hyperlipidemia ([facility]) 10/15/2016 Nocturnal leg cramps 01/01/2023 Orthostatic hypotension [...] HIP SURGERY Right 10/07/2023 Fx fixed @ [facility] PARTIAL HYSTERECTOMY 1982 REVIEW OF SYMPTOMS: [...] COVID-19 and influenza tests have returned negative results.She is advised to maintain hydration, ensure adequate rest, and use sxtz-yfu-grlbobo analgesics such as Tylenol or Motrin as needed. She may continue with DayQuil and is also recommended to consider Mucinex. A prescription for Mucinex will be sent to [facility]. If there is no improvement in her condition by Wednesday, she should inform us. No follow-ups on file. documented in this [facility]01-27-2025 Telephone encounter Note* Telephone Encounter - Cynthia Leong MD - 09/04/2024 2:31 PM EST Refills sent. [id number] Miscellaneous Notes* Telephone Encounter - Cynthia Leong MD - 09/04/2024 2:31 PM EST Refills sent. documented in this [facility]01-27-2025 Telephone encounter Note* Telephone Encounter - Cynthia Leong MD - 09/04/2024 2:30 PM EST Refills sent. [facility] [id number] Miscellaneous Notes* Telephone Encounter - Cynthia Leong MD - 09/04/2024 2:30 PM EST Refills sent. documented in this [facility]12-26-2024 History of Present illness Narrative* Alana Lopez, PT - 08/03/2024 12:30 PM EST Images from the original note were not [...] states her legs gave out before she wasable to get walker locked and turned. Pt [...] of her legs today. Pain rates about 1/10.Today is last day PT and would like [...] minutes) Strength, Endurance, Flexibility, ROM, HEP, Neural Mobilization,Power, and Core Stability as needed. Pt performed [...] instructed in home exercise program. - met Mcfp Goals: To be met in 10 weeks [...] not met DISCHARGE PT documented in this encounterHCA Midwest [id number] Telephone encounter Note* Telephone Encounter - Cynthia Leong MD - 07/31/2024 11:43 AM EST Refills sent. [facility] [id number] Miscellaneous Notes* Telephone Encounter - Cynthia Leong MD - 07/31/2024 11:43 AM EST Refills sent. documented in this encounterHCA Midwest [id number] History of Present illness Narrative* Alana oLpez, PT - 07/28/2024 1:00 PM EST Physical Therapy Treatment Visit Patient Name: Dominique [...] states her legs gave out before she wasable to get walker locked and turned. Pt [...] minutes) Strength, Endurance, Flexibility, ROM, HEP, Neural Mobilization,Power, and Core Stability as needed. Pt performed [...] low back and LE pain. Progressed standing exercisesthis date to improve functional strength when standing. Will continue to progress as pt tolerates. Outcome Measure: Back Index: 37/50 Rehab Diagnosis: low back pain; bilateral LE weakness; falls Short Term Goal: To be met in 2 weeks Goal 1: Pt to be instructed in home exercise program. Mcfp Goals: To be met in 10 weeks [...] Please sign below. Date: documented in this encounterHCA Midwest [id number] History of Present illness Narrative* Alana Lopez, PT - 07/14/2024 12:30 PM EST Physical Therapy Progress Note Visit Patient Name: [...] states her legs gave out before she wasable to get walker locked and turned. 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 Was able to crawl to chair and getself up. Second fall was in the bathroom, [...] minutes) Strength, Endurance, Flexibility, ROM, HEP, Neural Mobilization,Power, and Core Stability as needed. Pt performed [...] to be instructed in home exercise program. Train Braker Goals: To be met in 10 weeks [...] Please sign below. Date: documented in this encounterHCA Midwest [id number] History of Present illness Narrative* Alana Lopez PT - 06/27/2024 2:00 PM EST Physical Therapy Treatment Visit Patient Name: Dominique [...] states her legs gave out before she wasable to get walker locked and turned. Pt [...] minutes) Strength, Endurance, Flexibility, ROM, HEP, Neural Mobilization,Power, and Core Stability as needed. Pt performed [...] to be instructed in home exercise program. Train Braker Goals: To be met in 10 weeks [...] Please sign below. Date: documented in this encounterHCA Midwest [id number] History of Present illness Narrative* Alana Lopez PT - 06/23/2024 10:30 AM EST Physical Therapy Treatment Visit Patient Name: Dominique [...] states her legs gave out before she wasable to get walker locked and turned. Pt [...] she next morning she seems to be abit more sore but overall thinks she is [...] minutes) Strength, Endurance, Flexibility, ROM, HEP, Neural Mobilization,Power, and Core Stability as needed. Pt performed [...] to be instructed in home exercise program. Train Braker Goals: To be met in 10 weeks [...] Please sign below. Date: documented in this [facility]11-14-2024 History of Present illness Narrative* Cynthia Leong MD - 06/22/2024 2:30 PM EST Images from the original note were not [...] pressure was recorded as 204 systolic and 188diastolic at Dr. Villegas's office, which slightly decreased [...] new medication will be sent to [facility] and should be taken once daily with her morning pills. 2. Dizziness. She reports persistent dizziness, which worsens with physical activity. This could be related to her hypertension or potential anemia. Blood work will be conducted to check for anemia and B12 levels.If B12 levels are low, additional B12 will be prescribed. 3. Health Maintenance. It has been a year since her last Medicare wellness visit in July 2023. Annual lab work will berepeated to ensure stable kidney and thyroid function. [...] Orders CBC and differential documented in this encounterHCA Midwest [id number] History of Present illness Narrative* Mariano Ghosh, SECURITY SERGEANT - 06/20/2024 2:00 PM EST Physical Therapy Treatment Visit Patient Name: Dominique [...] states her legs gave out before she wasable to get walker locked and turned. Pt [...] minutes) Strength, Endurance, Flexibility, ROM, HEP, Neural Mobilization,Power, and Core Stability as needed. Pt performed and instructed in home program this date; writteninstructions and pictures issued with good pt understanding. [...] to be instructed in home exercise program. Mcfp Goals: To be met in 10 weeks [...] 06/23/2024 1:09 PM EST documented in this encounterHCA Midwest [id number] Telephone encounter Note* Telephone Encounter - Cynthia Leong MD - 06/13/2024 12:06 PM EST Approving, but needs appt for additional refills. [facility] [id number] Miscellaneous Notes* Telephone Encounter - Cynthia Leong MD - 06/13/2024 12:06 PM EST Approving, but needs appt for additional refills. * Telephone Encounter - Giana Chandra - 06/13/2024 11:43 AM EST 180/70 sometimes 160/70 definitely happening more frequently than family would like. Scheduling an appt for the next wk * Telephone Encounter - Delphine Burk - 06/13/2024 9:15 AM EST Patient is calling for refill of [facility]oprolol to [facility] [place]. When her b/p is high doyou want her to take more of this medication? Please advise pt. Thank you. documented in this [facility]11-05-2024 Telephone encounter Note* Telephone Encounter - Giana Chandra - 06/13/2024 11:43 AM EST 180/70 sometimes 160/70 definitely happening more frequently than family would like. Scheduling an appt for the next wk [id number] Telephone encounter Note* Telephone Encounter - Delphine Burk - 06/13/2024 9:15 AM EST Patient is calling for refill [facility]oprol[facility] to [facility] [place]. When her b/p is high doyou want her to take more of this medication? Please advise pt. Thank you. [facility] [id number] Telephone encounter Note* Telephone Encounter - Donn Darling - 06/07/2024 8:29 AM EDT Nanette Fox's daughter Kellie is having a lot of pain and needing to get in terry, *I can call if needed , ty [facility] [phone] [facility] [id number] Miscellaneous Notes* Telephone Encounter - Donn Darling - 06/07/2024 8:29 AM EDT Nanette Fox's daughter called<Dentist office needs a verbal ok that Dominique can get her cracked tooth /filling repaired . Due to having a hip replacement ( ibelieve in october) She is having a lot of pain and needing to get in terry, *I can call if needed , ty [facility] [phone] documented in this encounterHCA Midwest [id number] History of Present illness Narrative* Alana Lopez, PT - 05/29/2024 10:00 AM EDT Physical Therapy Treatment Visit - DISCHARGE Patient [...] or 3 Meclizine yesterday, none today. Precautions: [place], falls Subjective: Pt states she continues with [...] Pt with difficulty performing VOR exercises due toeyes not staying focused. Pt wishing to discontinue [...] instructed in home exercise program. - MET Mcfp Goals: To be met in 10 weeks [...] Discharge PT this date. documented in this [facility]10-10-2024 Telephone encounter Note* Telephone Encounter - Delphine Burk - 05/18/2024 2:14 PM EDT Patient daughter- Nanette is calling today re: referral. Nanette called PT and they can address one issue at a time. Is the vertigo more important that the spinal stenosis and arthritis at this time? Please advise Nanette which one you would like addressed first so she can call and get this scheduled. Nanette [phone]. Thank you. [facility] [id number] Miscellaneous Notes* Telephone Encounter - Delphine Burk - 05/18/2024 2:14 PM EDT Patient daughter- Nanette is calling today re: referral. Nanette called PT and they can address one issue at a time. Is the vertigo more important that the spinal stenosis and arthritis at this time? Please advise Nanette which one you would like addressed first so she can call and get this scheduled. Nanette [phone]. Thank you. documented in this [facility]10-10-2024 History of Present illness Narrative* Divina Castellano NP - 05/18/2024 10:00 AM EDT Images from the original [...] in her back. She states she feels theyhave helped. Foes back on 05/24 to review with them how she is doing. Denies any increase in numbness/tingling in lower extremities since having pain shot. Spouse is questioning what else can be donere: the spinal stenosis. Discussed referral to spine [...] past medical history, past social history, past surgicalhistory and problem list. Past History Past Medical History: Diagnosis Date Acute gout of right knee, unspecified cause Cramp in lower leg associated with rest 12/01/2018 Decreased platelet count ([facility]/HCC) 01/01/2023 Essential hypertension ([facility]) 10/15/2016 Gastro-esophageal reflux disease without esophagitis 11/24/2017 GERD (gastroesophageal reflux disease) Hypertension ([facility]) Hyperthyroidism ([facility]) Hypothyroid ([facility]) Hypothyroidism, unspecified ([facility]) 05/11/2016 Lumbar and sacral arthritis 01/01/2023 Mixed hyperlipidemia ([facility]) 10/15/2016 Nocturnal leg cramps 01/01/2023 Orthostatic hypotension [...] sent a referral to Dr. Turner in January 2024 - does not appear there was [...] for Next scheduled follow-up. documented in this encounterHCA Midwest [id number] Evaluation note* Encounter Date Diagnosis Assessment Notes Treatment Notes Treatment Clinical Notes May, Lumbar radiculopathy (ICD-10 - M54.16) [...] up in 1 week for further evaluation. [facility] Other 08-29-2023 Evaluation note* Encounter Date Diagnosis [...] (ICD-10 - G89.29) Proceed with treatment plan. [facility] Other 08-15-2023 Evaluation note* Encounter Date Diagnosis [...] (ICD-10 - G89.29) Follow up as needed [facility] Other 07-31-2023 Evaluation note* Encounter Date Diagnosis [...] progress notes from her referring provider Dr Redding. I also independently reviewed recent imaging of [...] negative findings were considered in medical decision-making. [facility] Other Evaluation noteNo InformationNortGeisinger [facility] Other Evaluation noteNo assessment information available [facility] Work Phone: Evaluation note* Diagnosis Gastroesophageal reflux disease without esophagitis Esophageal reflux documented in this encounter [facility] HealthcareEvaluation note* Diagnosis Vertigo- Primary Dizziness and giddiness Spinal stenosis, unspecified spinal region Lumbar and sacral arthritis Lumbosacral spondylosis without myelopathy Dysuria Essential hypertension (CMS/HCC) Unspecified essential hypertension documented in this encounter [facility] HealthcareEvaluation note* Diagnosis B12 deficiency- Primary Essential hypertension (CMS/HCC) Unspecified essential hypertension Acquired hypothyroidism (CMS/HCC) Unspecified hypothyroidism Decreased platelet count (CMS/HCC) Unspecified thrombocytopenia Mixed hyperlipidemia (CMS/HCC) Mixed hyperlipidemia Vertigo Dizziness and giddiness Closed fracture of neck of right femur with routine healing, subsequent encounter Atherosclerosis of aorta (CMS/HCC) Atherosclerosis of aorta Acute cystitis without hematuria- Primary documented in this encounter [facility] HealthcareEvaluation note* Diagnosis B12 deficiency- Primary Essential [...] lower extremities documented in this encounter [facility]* Diagnosis B12 deficiency- Primary Essential hypertension Unspecified essential hypertension Acquired hypothyroidism Unspecified hypothyroidism Decreased platelet count Unspecified thrombocytopenia Mixed hyperlipidemia Mixed hyperlipidemia Vertigo Dizziness and giddiness Closed fracture of neck of right femur with routine healing, subsequent encounter Atherosclerosis of aorta Peripheral polyneuropathy- Primary Wellness examination Herpes simplex Herpes simplex without mention of complication Essential hypertension Unspecified essential hypertension Mixed hyperlipidemia Mixed hyperlipidemia Acquired hypothyroidism Unspecified hypothyroidism Spinal stenosis of lumbar region, unspecified whether neurogenic claudication present Monoclonal gammopathy- Primary Monoclonal paraproteinemia Pain in both lower extremities Frequent falls Chronic midline low back pain with left-sided sciatica Claudication Unspecified peripheral vascular disease documented in this encounter [facility]* Diagnosis B12 deficiency- Primary Essential hypertension Unspecified essential hypertension Acquired hypothyroidism Unspecified hypothyroidism Decreased platelet count Unspecified thrombocytopenia Mixed hyperlipidemia Mixed hyperlipidemia Vertigo Dizziness and giddiness Closed fracture of neck of right femur with routine healing, subsequent encounter Atherosclerosis of aorta Peripheral polyneuropathy- Primary Wellness examination Herpes simplex Herpes simplex without mention of complication Essential hypertension Unspecified essential hypertension Mixed hyperlipidemia Mixed hyperlipidemia Acquired hypothyroidism Unspecified hypothyroidism Spinal stenosis of lumbar region, unspecified whether neurogenic claudication present Primary insomnia Persistent disorder of initiating or maintaining sleep documented in this encounter [facility] HealthcareHistory general Narrative - Reported* Type Description Date Medical History hypercholestolemia Medical History stenosis [employer] [facility] Other Progress note Author Cory Barahona [facility] Note Date/Time February 22, 2025 9:50 am [facility] [place] [address] Cancer Center Note Signed Patient: Yvonne Liz MR#: [id number] : 1945 Acct:[id number] Age/Sex: 79 / F Type: REG AMB Date of Service: 02/22/25 Copies to: Cynthia Leong MD~ Assessment & Plan A/P (1) MGUS (monoclonal gammopathy of unknown significance): (2) Displaced fracture of proximal end of left humerus: (3) Closed fracture distal radius and ulna: Plan See HPI for details. Wrist fracture healed well. Left proximal humerus fracture still not well healed. Plan: Obtain myeloma labs serum as well as CBC with differential CMP LDH and beta-2 microglobulin. Obtain 24-hour urine UPEP and urine free light chains. Obtain skeletal pain survey. Return for results. Will decide about if she needs BMBx based on the results value. Orders: Orders XR bone survey 1 Day D47.2 - Monoclonal gammopathy LDH Lactate Dehydrogenase 1 Day D47.2 - Monoclonal gammopathy Complete Blood Count Auto Diff 1 Day D47.2 - Monoclonal gammopathy Protein Electrophoresis, Serum 1 Day D47.2 - Monoclonal gammopathy Comprehensive Metabolic Panel 1 Day D47.2 - Monoclonal gammopathy Fr [place]/Lambda LTC Urine 1 Day D47.2 - Monoclonal gammopathy Immunofixation,Serum 1 Day D47.2 - Monoclonal gammopathy Free K+L LT Chains, Qn, S 1 Day D47.2 - Monoclonal gammopathy Beta 2 Microglobulin, Serum 1 Day D47.2 - Monoclonal gammopathy Protein Electro, 24Hr Urine 1 Day D47.2 - Monoclonal gammopathy Patient Instructions: skeletal bone survey myeloma labs,cbc,cmp,[id number] 24H urine UPEP,free light chains return 3 weeks CHEMO PLAN No Active Chemotherapy History of Present Illness DUSTIN Russell is an 79 year with history of hypothyroidism on Synthroid was referred over to hematology clinic for evaluation for possible MGUS and to rule out multiple myeloma. Patient recently had displaced fracture of proximal end of left humerus and closed fracture of the distal radius and ulna as well occurred on 01/07/2025 after falling.. She was seen by Ziggy Rose from orthopedics. Shewas placed on splinting braces and was referred to hematology for abnormal labs concerning for MGUS. She has been complaining of shoulder pain and left arm pain as well and also back pain with tingling. Back pain is radiating into her legs. She continues to feel fatigue in her legs. She was referred to neurosurgeon for further evaluation and an MRI of the lumbar spine was ordered. Labs done on 2024 revealed JOANIE 1:40 nuclear homogeneous. Hepatitis A IgM nonreactive. Hepatitis B surface antigen nonreactive. Hepatitis B core antibody nonreactive. Hepatitis C antibody nonreactive. Methylmalonic acid 141normal sed rate is normal 9. TSH 1.61 normal. Serum protein electrophoresis revealed total protein of 6.3 with normal range albumin 3.8 with within normal range. Alpha-1 alpha-2 and beta 1 globulin and beta-2 globulins were all withinnormal range. Hemoglobin is low at 0.7. Abnormal protein band slight elevated 0.2. B12 was 217. Creatinine 0.8. Calcium 9.4. LFTs unremarkable with total bili of 0.6. WBC 5.0 hemoglobin 12.2 and platelet of 102 chronically low for years since at least 2022. Intake Vitals/Pain Assessment 02/22/25 09:05 Height 5 ft 4 in Weight 64.41 kg BMI 24.3 Body Fat % 42.43 BP 113/73 Blood Pressure Location Rt brachial Position Sitting Temp 97.8 F Pulse 73 Pulse Source NIBP Respiration 20 Pulse Oximetry (%) 100 Oxygen Delivery Method room air Are you having pain? No Intake Visit Reasons: NEW- MGUS Allergies pollen extracts Allergy (Unknown, Verified 02/22/25 09:07) Unknown Reaction Home Medications - Last Reconciled 02/22/25 by JACINDA Garcia atorvastatin mg PO levothyroxine mcg PO lisinopril mg PO metoprolol succinate ER mg PO omeprazole mg PO trazodone mg PO QHS PRN Gastrointestinal Is the patient taking opioids for pain control?: No Bowel Protocol for Opioids Given: No Bowel Pattern: Regular Bowel Movement Aid(s): None Falls Fall Precaution Measures Taken: Patient in chair Nurse's Note: Patient is referred by Dr Cynthia Leong for MGUS. Outside labs for review. No concerns voiced at time of intake. [facility] Medical History Medical History (Updated 02/22/25 @ 09:22 by Cory Barahona MD) MGUS (monoclonal gammopathy of unknown significance) Orthostatic hypotension Thrombocytopenia Dementia GERD (gastroesophageal reflux disease) Rheumatoid aortitis Hypertension Irregular heart rate Hypothyroidism Spinal stenosis Sacroiliitis Osteoporosis Lumbar and sacral arthritis Hypercholesterolemia Anterolisthesis of lumbar spine Surgical History Surgical History (Updated 02/22/25 @ 09:09 by JACINDA Garcia) History of right hip replacement October 2023 Family History Family History (Updated 01/29/25 @ 15:56 by Liberty Avitia CMA) Other Hypertension Stroke Social History Social History (Updated 02/22/25 @ 09:10 by JACINDA Garcia) Smoking status: Never smoker Within the past year, how often did you have a drink containing alcohol: never AUDIT-C Alcohol total score: 0 AUDIT-C Alcohol score interpretation: A score less than 3 is consistent with normal alcohol consumption. In the past 12 months, have you used illegal drugs or prescription drugs for non-medical reasons?: No Review of Systems ROS Details: All systems reviewed & no additional complaints except as documented General: Patient denied fevers, chills, rigors, weight loss or loss of appetite. Head: Patient denied any headaches or vision changes Thoracic: Patient denied any shortness of breath or cough or hemoptysis Cardiovascular patient denies any chest pain or leg edema GI: Patient denies any nausea vomiting rectal bleed diarrhea : Patient denied gross hematuria. Hematology: Patient denied any bleeding from any source. No easy bruising. Lymphatic: No enlarged LAP anywhere. Skin: Normal skin exam no rashes or suspicious lesions. Neurological patient denies any headache or dizziness or focal weakness or sensory changes. Physical Exam EXAM HEENT normocephalic atraumatic pupils are equal and round Neck supple without thyromegaly or any cervical lymphadenopathy. Chest clear to auscultation bilaterally without wheezing crackles or rhonchi Heart regular rate and rhythm S1-S2 without murmurs gallop or rub Abdomen soft nontender not distended without hepatosplenomegaly or masses clinically Extremities no edema of the lower extremities Skin without any suspicious rashes Lymphatic system no lymphadenopathy in the cervical area axillary areas or inguinal areas bilaterally Neurological exam patient is cooperative alert and oriented x3 no focal deficits. Dictated By: Cory Barahona MD DD/ [id number] Signed By: <Electronically signed by Cory Barahona MD> 02/22/25 0950 [facility] Work Phone: Progress note Author Cory Barahona [facility] Note Date/Time March 14, 2025 2:2 8pm [facility] [place] [address] Cancer Center Note Signed Patient: Yvonne Liz MR#: [id number] : 1945 Acct:[id number] Age/Sex: 79 / F Type: REG AMB Date of Service: 03/14/25 Copies to: Cynthia Leong MD~ Assessment & Plan A/P (1) MGUS (monoclonal gammopathy of unknown significance): (2) Displaced fracture of proximal end of left humerus: (3) Closed fracture distal radius and ulna: (4) Normocytic anemia: (5) Thrombocytopenia: Plan See [facility] for details. Wrist fracture healed well. Left proximal humerus fracture still not well healed. 03/14/25: She is here for the results of the myeloma labs as well as 24-hour urine UPEP and light chains and skeletal bone survey. -Labs on 02/28/2025 revealed hemoglobin of 11.6 with normal MCV and RBC indices. The platelet however is 94 mildly low. And WBC is normal. Absolute lymphocyte count is 0.9 the rest of the WBC differential is normal. Creatinine is normal at 0.87 and calcium is normal 9.8. LFTs unremarkable except for the alk phos at110. Total protein is 6.2 low. Myeloma labs revealed M spike of 0.2. Immunoglobulin levels IgG, IgA and IgM were within normal range. Serum immunofixation revealed IgG monoclonal protein with lambda light chain specificity. Beta-2 microglobulin revealed 3.0 mild elevated. And serum free kappa was minimally elevated at 20.3 as the cutoff normal is 19.4 and the lambdais normal 14.6 with the kappa lambda ratio is 1.39 normal. 24-hour urine UPEP revealed no M spike detected in the urine. Urinary free kappa light chain was 26 and the lambda was 3.39 with urinary free kappa/lambda ratio was 7.92 which is within normal range. Skeletal bone survey on 02/28/2025 revealed minimal focal lytic lesions of the left portion of the calvarium no additional lytic lesions. Impression: Patient has minimal anemia hemoglobin 11.4 and mild thrombocytopenia platelet count of 94,000. Normal WBC and differential unremarkable. Patient does not have renal failure or hypercalcemia. However [place] skeletal survey revealed minimal focal lytic lesion in the calvarium and no other lytic lesions anywhere else. Her serum M protein is 0.2. Light chains unremarkable. The 24-hour urine lightchains and M protein were normal. Plan: I will check her B12 level, LDH, iron studies and folate as well as copper level. If there is any factor deficiency we will fix that. Labs in 8 weeks including CBCD, CMP and myeloma labs to define if she has worsening thrombocytopenia or anemia or worsening renal failure or hypercalcemia. Repeat the skeletal bone survey in 8 weeks and see her then. Will decide about if she needs BMBx based on the results value. Orders: Orders Iron and TIBC Profile Today D47.2 - Monoclonal gammopathy, D64.9 - Anemia, unspecified, D69.6 - Thrombocytopenia, unspecified Ferritin Today D47.2 - Monoclonal gammopathy, D64.9 - Anemia, unspecified, D69.6 - Thrombocytopenia, unspecified LDH Lactate Dehydrogenase Today D47.2 - Monoclonal gammopathy, D64.9 - Anemia, unspecified, D69.6 - Thrombocytopenia, unspecified Copper Today D47.2 - Monoclonal gammopathy, D64.9 - Anemia, unspecified, D69.6 - Thrombocytopenia, unspecified XR bone survey 8 Weeks D47.2 - Monoclonal gammopathy, D64.9 - Anemia, unspecified, D69.6 - Thrombocytopenia, unspecified Complete Blood Count Auto Diff 8 Weeks D47.2 - Monoclonal gammopathy, D64.9 - Anemia, unspecified, D69.6 - Thrombocytopenia, unspecified Immunofixation,Serum 8 Weeks D47.2 - Monoclonal gammopathy, D64.9 - Anemia, unspecified, D69.6 - Thrombocytopenia, unspecified Fr [place]/Lambda LTC Urine 8 Weeks D47.2 - Monoclonal gammopathy, D64.9 - Anemia, unspecified, D69.6 - Thrombocytopenia, unspecified Comprehensive Metabolic Panel 8 Weeks D47.2 - Monoclonal gammopathy, D64.9 - Anemia, unspecified, D69.6 - Thrombocytopenia, unspecified Vit. B12/Folate Profile Today D47.2 - Monoclonal gammopathy, D64.9 - Anemia, unspecified, D69.6 - Thrombocytopenia, unspecified Protein Electrophoresis, Serum 8 Weeks D47.2 - Monoclonal gammopathy, D64.9 - Anemia, unspecified, D69.6 - Thrombocytopenia, unspecified Patient Instructions: b12,iron,ldh,copper now myeloma labs,cbc,cmp in 8 weeks bone survey 8 weeks return 8 weeks CHEMO PLAN No Active Chemotherapy History of Present Illness HPI Yvonne is an 79 year with history of hypothyroidism on Synthroid was referred over to hematology clinic for evaluation for possible MGUS and to rule out multiple myeloma. Patient recently had displaced fracture of proximal end of left humerus and closed fracture of the distal radius and ulna as well occurred on 01/07/2025 after falling.. She was seen by Ziggy Rose from orthopedics. Shewas placed on splinting braces and was referred to hematology for abnormal labs concerning for MGUS. She has been complaining of shoulder pain and left arm pain as well and also back pain with tingling. Back pain is radiating into her legs. She continues to feel fatigue in her legs. She was referred to neurosurgeon for further evaluation and an MRI of the lumbar spine was ordered. Labs done on 2024 revealed JOANIE 1:40 nuclear homogeneous. Hepatitis A IgM nonreactive. Hepatitis B surface antigen nonreactive. Hepatitis B core antibody nonreactive. Hepatitis C antibody nonreactive. Methylmalonic acid 141 normal sed rate is normal 9. TSH 1.61 normal. Serum protein electrophoresis revealed total protein of 6.3 with normal range albumin 3.8 with within normal range. Alpha-1 alpha-2 and beta 1 globulin and beta-2 globulins were all withinnormal range. Hemoglobin is low at 0.7. Abnormal protein band slight elevated 0.2. B12 was 217. Creatinine 0.8. Calcium 9.4. LFTs unremarkable with total bili of 0.6. WBC 5.0 hemoglobin 12.2 and platelet of 102 chronically low for years since at least 2022. 03/14/25: She is here for the results of the myeloma labs as well as 24-hour urine UPEP and light chains and skeletal bone survey. -Labs on 02/28/2025 revealed hemoglobin of 11.6 with normal MCV and RBC indices. The platelet however is 94 mildly low. And WBC is normal. Absolute lymphocyte count is 0.9 the rest of the WBC differential is normal. Creatinine is normal at 0.87 and calcium is normal 9.8. LFTs unremarkable except for the alk phos at110. Total protein is 6.2 low. Myeloma labs revealed M spike of 0.2. Immunoglobulin levels IgG, IgA and IgM were within normal range. Serum immunofixation revealed IgG monoclonal protein with lambda light chain specificity. Beta-2 microglobulin revealed 3.0 mild elevated. And serum free kappa was minimally elevated at 20.3 as the cutoff normal is 19.4 and the lambdais normal 14.6 with the kappa lambda ratio is 1.39 normal. 24-hour urine UPEP revealed no M spike detected in the urine. Urinary free kappa light chain was 26 and the lambda was 3.39 with urinary free kappa/lambda ratio was 7.92 which is within normal range. Skeletal bone survey on 02/28/2025 revealed minimal focal lytic lesions of the left portion of the calvarium no additional lytic lesions. Intake Vitals/Pain Assessment 03/14/25 13:59 Weight 63.503 kg BP 147/86 H Blood Pressure Location Rt brachial Position Sitting Pulse 87 Pulse Source NIBP Respiration 20 Pulse Oximetry (%) 98 Oxygen Delivery Method room air Are you having pain? No Intake Visit Reasons: Follow Up 3 Weeks Allergies pollen extracts Allergy (Unknown, Verified 03/14/25 14:01) Unknown Reaction Home Medications - Last Reconciled 03/14/25 by JACINDA Garcia atorvastatin mg PO levothyroxine mcg PO lisinopril mg PO metoprolol succinate ER mg PO omeprazole mg PO trazodone mg PO QHS PRN Gastrointestinal Is the patient taking opioids for pain control?: No Bowel Protocol for Opioids Given: No Bowel Pattern: Regular Bowel Movement Aid(s): None Falls Fall Precaution Measures Taken: Patient in chair Nurse's Note: Patient is here for a 3 week follow up with labs and imaging for review. [facility] Medical History Medical History (Updated 03/14/25 @ 14:16 by Cory Barahona MD) Normocytic anemia MGUS (monoclonal gammopathy of unknown significance) Orthostatic hypotension Thrombocytopenia Dementia GERD (gastroesophageal reflux disease) Rheumatoid aortitis Hypertension Irregular heart rate Hypothyroidism Spinal stenosis Sacroiliitis Osteoporosis Lumbar and sacral arthritis Hypercholesterolemia Anterolisthesis of lumbar spine Surgical History Surgical History (Updated 02/22/25 @ 09:09 by JACINDA Garcia) History of right hip replacement October 2023 Family History Family History (Updated 01/29/25 @ 15:56 by Liberty Avitia CMA) Other Hypertension Stroke Social History Social History (Updated 02/22/25 @ 09:10 by JACINDA Garcia) Smoking status: Never smoker Within the past year, how often did you have a drink containing alcohol: never AUDIT-C Alcohol total score: 0 AUDIT-C Alcohol score interpretation: A score less than 3 is consistent with normal alcohol consumption. In the past 12 months, have you used illegal drugs or prescription drugs for non-medical reasons?: No Review of Systems ROS Details: All systems reviewed & no additional complaints except as documented General: Patient denied fevers, chills, rigors, weight loss or loss of appetite. Head: Patient denied any headaches or vision changes Thoracic: Patient denied any shortness of breath or cough or hemoptysis Cardiovascular patient denies any chest pain or leg edema GI: Patient denies any nausea vomiting rectal bleed diarrhea : Patient denied gross hematuria. Hematology: Patient denied any bleeding from any source. No easy bruising. Lymphatic: No enlarged LAP anywhere. Skin: Normal skin exam no rashes or suspicious lesions. Neurological patient denies any headache or dizziness or focal weakness or sensory changes. Physical Exam EXAM HEENT normocephalic atraumatic pupils are equal and round Neck supple without thyromegaly or any cervical lymphadenopathy. Chest clear to auscultation bilaterally without wheezing crackles or rhonchi Heart regular rate and rhythm S1-S2 without murmurs gallop or rub Abdomen soft nontender not distended without hepatosplenomegaly or masses clinically Extremities no edema of the lower extremities Skin without any suspicious rashes Lymphatic system no lymphadenopathy in the cervical area axillary areas or inguinal areas bilaterally Neurological exam patient is cooperative alert and oriented x3 no focal deficits. Results - [facility] LAB RESULTS Corrected WBC, (3.8-11.6) 4.0 X10E3/uL 02/28/25, 13:2 6 Hgb, (11.8-15.4) 11.6 g/dL L 02/28/25, 13:26 Hct, (34.0-46.4) 33.4 % L 02/28/25, 13:26 MCV, (80-100) 99.0 fl 02/28/25, 13:26 RDW, (11.9-15.3) 13.2 % 02/28/25, 13: Plt Count, (150-450) 94 x10E3/uL L 02/28/25, 13: Sodium, (136-145) 139 mmol/L 02/28/25, 13: Potassium, (3.5-5.1) 4.0 mmol/L 02/28/25, 13: BUN, (7-25) 20 mg/dL 02/28/25, 13: Creatinine, (0.60-1.20) 0.87 mg/dL 02/28/25, 13: Glucose, (70-100) 108 mg/dL H 02/28/25, 13: Est GFR (CKD-EPI) > 60.0 mL/Min 02/28/25, : Calcium, (8.6-10.3) 9.8 mg/dL 02/28/25, 13: Total Bilirubin, (0.3-1.0) 0.6 mg/dl 02/28/25, 13: AST, (13-39) 15 U/L 02/28/25, 13: ALT, (7-52) 9 U/L 02/28/25, 13: Alkaline Phosphatase, (34-104) 110 U/L H 02/28/25, 13: Total Protein, (6.4-8.9) 6.2 gm/dL L 02/28/25, 13: Albumin, (3.5-5.7) 3.9 gm/dL 02/28/25, 13: Lactate Dehydrogenase, (140-271) 154 U/L 5, 13:26 Dictated By: Cory Barahona MD DD/ [id number] Signed By: <Electronically signed by Cory Barahona MD> 03/14/25 1428 [facility] Work Phone: Reason for referral (narrative)No reason for referral information availableHighland District Hospital Work Phone: Reason for visit Narrative* Rehabilitation - Outpatient (Routine) - Authorized Specialty Diagnoses / Procedures Referred By Contac t Referred To Contact Physical Therapy Diagnoses Vertigo Spinal stenosis, unspecified spinal region Lumbar and sacral arthritis Procedures NC OFFICE/OUTPATIENT NEW HIGH MDM 60 MINUTES Divina Castellano, JAIL KEEPER [address] [place] [address] Phone: tel: fax: Alana Lopez, PT Referral ID Status Reason Start Date Expiration Date Visits Requested Visits Authorized [id number] Authorized Specialty Services Required 4 11/14/2024 99 99 [facility] - Outpatient (Routine) - Authorized Specialty Diagnoses / Procedures Referred By Contac t Referred To Contact Physical Therapy Diagnoses Spinal stenosis, unspecified spinal region Lumbar and sacral arthritis Procedures NC OFFICE/OUTPATIENT NEW HIGH MDM 60 MINUTES Divina Castellano, JAIL KEEPER [address] [place] [address] Phone: tel: fax: Alana Lopez, PT Referral ID Status Reason Start Date Expiration Date Visits Requested Visits Authorized [id number] Authorized Specialty Services Required 4 05/14/2025 1 90 [facility] N[facility]* Rehabilitation - Outpatient (Routine) - Authorized Specialty Diagnoses / Procedures Referred By Contac t Referred To Contact Physical Therapy Diagnoses Spinal stenosis, unspecified spinal region Lumbar and sacral arthritis Procedures NC OFFICE/OUTPATIENT NEW HIGH MDM 60 MINUTES Divina Castellano, JAIL KEEPER [address] [place] [address] Phone: tel: fax: Alana Lopez, PT Referral ID Status Reason Start Date Expiration Date Visits Requested Visits Authorized [id number] Authorized Specialty Services Required 4 08/08/2024 1 90 [facility] N[facility]* Rehabilitation - Outpatient (Routine) - Closed Specialty Diagnoses / Procedures Referred By Contac t Referred To Contact Physical Therapy Diagnoses Spinal stenosis, unspecified spinal region Lumbar and sacral arthritis Procedures NC OFFICE/OUTPATIENT NEW HIGH MDM 60 MINUTES Divina Castellano, JAIL KEEPER [address] [place] [address] Phone: tel: fax: Alana Lopez, PT Referral ID Status Reason Start Date Expiration Date V isits Requested Visits Authorized [id number] Closed Specialty Services Required 06/05/2024 08/08/2024 1 90 [facility] for visit Narrative* Rehabilitation - Outpatient (Routine) - Authorized Specialty Diagnoses / Procedures Referred By Contac t Referred To Contact Physical Therapy Diagnoses Spinal stenosis, lumbar region with neurogenic claudication Procedures NC PHYSICAL THERAPY EVALUATION LOW COMPLEX 20 MINS NC OFFICE/OUTPATIENT NEW HIGH MDM 60 MINUTES Kulwant García MD [address] [place] [address] Phone: tel: fax: Shiva Franklin, PT [address] [address] Phone: tel: fax: Referral ID Status Reason Start Date Expiration Date V isits Requested Visits Authorized [id number] Authorized 12/01/2024 05/30/2025 99 99 [facility] for visit Narrative* Rehabilitation - Outpatient (Routine) - Authorized Specialty Diagnoses / Procedures Referred By Contac t Referred To Contact Physical Therapy Diagnoses Spinal stenosis, lumbar region with neurogenic claudication Procedures NC PHYSICAL THERAPY EVALUATION LOW COMPLEX 20 MINS NC OFFICE/OUTPATIENT NEW HIGH MDM 60 MINUTES Kulwant García MD [address] [place] [address] Phone: tel: fax: Shiva Franklin, PT [address] [address] Phone: tel: fax: Referral ID Status Reason Start Date Expiration Date V isits Requested Visits Authorized [id number] Authorized 12/01/2024 08/08/2025 99 99 [facility] Healthcare Summary Purpose Family History No Family History Records Found Relationship Condition Age at Onset Recorded Date/T veronica Not Specified Hypertension Unknown Cerebrovascular accident (CVA) Unknown Advance Directives No Advanced Directives Records Found Advance Directive Response Recorded Date/ Time Advance Directives No May 10, 2023 11:40am Advance Directive Response Recorded Date/ Time Advance Directives No January 25 10:23am Chief Complaint and Reason for Visit Chief Complaint M25.551 Chief Complaint Admit Date Unknown January 11, 2025 9:20p m Chief Complaint Admit Date Unknown January 11, 2025 9:20p m L WRIST AND HUMERAL HEAD FX WX TBH January 29, 2025 2:09pm M25.512 - Pain in left shoulder M25.532 - Pain in January 29, 2025 2:17pm S4.A - Unspecified fracture of upper end of le February 19, 2025 8:53am 3 weeks February 19, 2025 2:01 pm Reason for Visit Admit Date Closed fracture distal radius and ulna J une 2024 2:09pm Displaced fracture of proximal end of le ft humerus January 29, 2025 2:09pm Closed fracture distal radius and ulna J aren 2024 2:01pm Displaced fracture of proximal end of le ft humerus February 19, 2025 2:01pm Chief Complaint Admit Date Unknown January 11, 2025 9:20p m L WRIST AND HUMERAL HEAD FX WX H January 29, 2025 2:09pm M25.512 - Pain in left shoulder M25.532 - Pain in January 29, 2025 2:17pm S4.A - Unspecified fracture of upper end of le February 19, 2025 8:53am 3 weeks February 19, 2025 2:01 pm NEW- MGUS February 22, 2025 8:50 am MGUS February 22, 2025 8:52 am Reason for Visit Admit Date Closed fracture distal radius and ulna J une 2024 2:09pm Displaced fracture of proximal end of le ft humerus January 29, 2025 2:09pm Closed fracture distal radius and ulna J aren 2024 2:01pm Displaced fracture of proximal end of le ft humerus February 19, 2025 2:01pm Closed fracture distal radius and ulna J aren 2024 8:50am Displaced fracture of proximal end of le ft humerus February 22, 2025 8:50am 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) February 22, 2025 8:50am Chief Complaint Admit Date Unknown January 11, 2025 9:20p m L WRIST AND HUMERAL HEAD FX WX TBH January 29, 2025 2:09pm M25.512 - Pain in left shoulder M25.532 - Pain in January 29, 2025 2:17pm S42.202A - Unspecified fracture of upper end of le February 19, 2025 8:53am 3 weeks February 19, 2025 2:01 pm NEW- MGUS February 22, 2025 8:50 am Follow Up 3 Weeks March 14, 2025 1:5 5pm Reason for Visit Admit Date Closed fracture distal radius and ulna J une 2024 2:09pm Displaced fracture of proximal end of le ft humerus January 29, 2025 2:09pm Closed fracture distal radius and ulna J aren 2024 2:01pm Displaced fracture of proximal end of le ft humerus February 19, 2025 2:01pm Closed fracture distal radius and ulna J aren 2024 8:50am Displaced fracture of proximal end of le ft humerus February 22, 2025 8:50am 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) February 22, 2025 8:50am Closed fracture distal radius and ulna A ugust 2024 1:55pm Displaced fracture of proximal end of le ft humerus March 14, 2025 1:55pm 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) March 14, 2025 1:55pm Normocytic anemia March 14, 2025 1:5 5pm Thrombocytopenia March 14, 2025 1:5 5pm Reason for Referral Specialty Diagnoses / Procedures Referred By Contac t Referred To Contact Physical Therapy Diagnoses Vertigo Spinal stenosis, unspecified spinal region Lumbar and sacral arthritis Procedures NC OFFICE/OUTPATIENT NEW HIGH [facility] 60 MINUTES Divina Castellano, JAIL KEEPER [address] [place] [address] Alana Lopez PT Referral ID Status Reason Start Date Expiration Date Visits Requested Visits Authorized [id number] Authorized Specialty Services Required 11/14/2024 99 99 Additional Source Comments INFORMATION SOURCE (unrecogn ized section and content) DATE CREATED AUTHOR 12/11/2022 [facility] dical Specialist DATE CREATED AUTHOR AUTHOR'S ORGANIZ ATION 05/24/2024 [facility] DATE CREATED AUTHOR AUTHOR'S ORGANIZ ATION 03/07/2025 [facility]ists [facility] DATE CREATED AUTHOR AUTHOR'S ORGANIZ ATION 03/22/2025 [facility] REASON FOR VISIT (unrecogniz ed section and [...] Tender spot. Reason Comments Med Change Request Reason Onset Date Comments Broken wrist 01/08/2025 Reason Comments Follow-up Care Teams (unrecognized sec tion and content) Team Status: Active Member Role Status Dates FABIENNE Anderson Primary Care Provider Activ e Team Status: Inactive Member Role Status Dates FABIENNE Anderson Primary Care Provider Activ e Ap Holland MD Attending Provider Active Glazing Machine Operator Relationship Specialty Start Date End Date Cynthia Leong MD [address] [place] [address] PCP - [employer] 08/09/20 Cynthia Leong MD [address] [facility] [place] [address] PCP - General Family Medicine 01/18/24 Libby Ward NP [address] [place] [address] Nurse Practitioner Family Medicine 02/05/23 Glazing Machine Operator Relationship Specialty Start Date End Date Cynthia Leong MD [address] [place] [address] PCP - [employer] 08/09/20 Cynthia Leong MD [address] [place] [address] PCP - General Family Medicine 01/18/24 Libby Ward NP [address] [place] [address] Nurse Practitioner Family Medicine 02/05/23 Glazing Machine Operator Relationship Specialty Start Date End Date Cynthia Leong MD [address] [place] [address] PCP - [employer] 08/09/20 Cynthia Leong MD [address] [place] [address] PCP - General Family Medicine 01/18/24 Libby Ward NP [address] [place] [address] Nurse Practitioner Family Medicine 02/05/23 Glazing Machine Operator Relationship Specialty Start Date End Date Cynthia Leong MD [address] [place] [address] PCP - [employer] 08/09/20 Cynthia Leong MD [address] [place] [address] PCP - General Family Medicine 01/18/24 Libby Ward NP [address] [place] [address] Nurse Practitioner Family Medicine 02/05/23 Glazing Machine Operator Relationship Specialty Start Date End Date Cynthia Leong MD [address] [place] [address] PCP - [employer] 08/09/20 Cynthia Leong MD [address] [place] [address] PCP - General Family Medicine 01/18/24 Libby Ward NP [address] [place] [address] Nurse Practitioner Family Medicine 02/05/23 Glazing Machine Operator Relationship Specialty Start Date End Date Cynthia Leong MD [address] [place] [address] PCP - [employer] 08/09/20 Cynthia Leong MD [address] [place] [address] PCP - General Family Medicine 01/18/24 Libby Ward NP [address] [place] [address] Nurse Practitioner Family Medicine 02/05/23 Glazing Machine Operator Relationship Specialty Start Date End Date Cynthia Leong MD [address] [place] [address] PCP - [employer] 08/09/20 Cynthia Leong MD [address] [place] [address] PCP - General Family Medicine 01/18/24 Libby Ward NP [address] [place] [address] Nurse Practitioner Family Medicine 02/05/23 Glazing Machine Operator Relationship Specialty Start Date End Date Cynthia Leong MD [address] [place] [address] PCP - [employer] 08/09/20 Cynthia Leong MD [address] [place] [address] PCP - General Family Medicine 01/18/24 Libby Ward NP [address] [place] [address] Nurse Practitioner Family Medicine 02/05/23 Glazing Machine Operator Relationship Specialty Start Date End Date Cynthia Leong MD [address] [place] [address] PCP - [employer] 08/09/20 Cynthia Leong MD [address] [place] [address] PCP - General Family Medicine 01/18/24 Libby Ward NP [address] [place] [address] Nurse Practitioner Family Medicine 02/05/23 Glazing Machine Operator Relationship Specialty Start Date End Date Cynthia Leong MD [address] [place] [address] PCP - [employer] 08/09/20 Cynthia Leong MD [address] [place] [address] PCP - General Family Medicine 01/18/24 Libby Ward NP [address] [place] [address] Nurse Practitioner Family Medicine 02/05/23 Glazing Machine Operator Relationship Specialty Start Date End Date Cynthia Leong MD [address] [place] [address] PCP - [employer] 08/09/20 Cynthia Leong MD [address] [place] [address] PCP - General Family Medicine 01/18/24 Libby Ward NP [address] [place] [address] Nurse Practitioner Family Medicine 02/05/23 Glazing Machine Operator Relationship Specialty Start Date End Date Cynthia Leong MD [address] [place] [address] PCP - [employer] 08/09/20 Cynthia Leong MD [address] [place] [address] PCP - General Family Medicine 01/18/24 Libby Ward, SANJEEV [address] [place] [address] Nurse Practitioner Family Medicine 02/05/23 Glazing Machine Operator Relationship Specialty Start Date End Date Cynthia Leong MD [address] [place] [address] PCP - [employer] 08/09/20 Cynthia Leong MD [address] [place] [address] PCP - General Family Medicine 01/18/24 Libby Ward NP [address] [place] [address] Nurse Practitioner Family Medicine 02/05/23 Glazing Machine Operator Relationship Specialty Start Date End Date Cynthia Leong MD [address] [place] [address] PCP - [employer] 08/09/20 Cynthia Leong MD [address] [place] [address] PCP - General Family Medicine 01/18/24 Libby Ward NP [address] [place] [address] Nurse Practitioner Family Medicine 02/05/23 Glazing Machine Operator Relationship Specialty Start Date End Date Cynthia Leong MD [address] [place] [address] PCP - [employer] 08/09/20 Cynthia Leong MD [address] [place] [address] PCP - General Family Medicine 01/18/24 Libby Ward NP [address] [place] [address] Nurse Practitioner Family Medicine 02/05/23 Glazing Machine Operator Relationship Specialty Start Date End Date Cynthia Leong MD [address] [place] [address] PCP - [employer] 08/09/20 Cynthia Leong MD [address] [place] [address] PCP - General Family Medicine 01/18/24 Libby Ward NP [address] [place] [address] Nurse Practitioner Family Medicine 02/05/23 Glazing Machine Operator Relationship Specialty Start Date End Date Cynthia Leong MD [address] [place] [address] PCP - [employer] 08/09/20 Cynthia Leong MD [address] [place] [address] PCP - General Family Medicine 01/18/24 Libby Ward NP [address] [place] [address] Nurse Practitioner Family Medicine 02/05/23 Glazing Machine Operator Relationship Specialty Start Date End Date Cynthia Leong MD [address] [place] [address] PCP - [employer] 08/09/20 Cynthia Leong MD [address] [place] [address] PCP - General Family Medicine 01/18/24 Libby Ward NP [address] [place] [address] Nurse Practitioner Family Medicine 02/05/23 Glazing Machine Operator Relationship Specialty Start Date End Date Cynthia Leong MD [address] [place] [address] PCP - [employer] 08/09/20 Cynthia Leong MD [address] [place] [address] PCP - General Family Medicine 01/18/24 Libby Ward NP [address] [place] [address] Nurse Practitioner Family Medicine 02/05/23 Glazing Machine Operator Relationship Specialty Start Date End Date Cynthia Leong MD [address] [place] [address] PCP - [employer] 08/09/20 Cynthia Leong MD [address] [place] [address] PCP - General Family Medicine 01/18/24 Libby Ward NP [address] [place] [address] Nurse Practitioner Family Medicine 02/05/23 Glazing Machine Operator Relationship Specialty Start Date End Date Cynthia Leong MD [address] [place] [address] PCP - [employer] 08/09/20 Cynthia Leong MD [address] [place] [address] PCP - General Family Medicine 01/18/24 Libby Ward NP [address] [place] [address] Nurse Practitioner Family Medicine 02/05/23 Glazing Machine Operator Relationship Specialty Start Date End Date Cynthia Leong MD [address] [place] [address] PCP - [employer] 08/09/20 Cynthia Leong MD [address] [place] [address] PCP - General Family Medicine 01/18/24 Libby Ward NP [address] [place] [address] Nurse Practitioner Family Medicine 02/05/23 Glazing Machine Operator Relationship Specialty Start Date End Date Cynthia Leong MD [address] [place] [address] PCP - [employer] 08/09/20 Cynthia Leong MD [address] [place] [address] PCP - General Family Medicine 01/18/24 Libby Ward NP [address] [place] [address] Nurse Practitioner Family Medicine 02/05/23 Glazing Machine Operator Relationship Specialty Start Date End Date Cynthia Leong MD [address] [place] [address] PCP - [employer] 08/09/20 Cynthia Leong MD [address] [place] [address] PCP - General Family Medicine 01/18/24 Libby Ward, SANJEEV [address] [place] [address] Nurse Practitioner Family Medicine 02/05/23 Glazing Machine Operator Relationship Specialty Start Date End Date Cynthia Leong MD [address] [place] [address] PCP - [employer] 08/09/20 Cynthia Leong MD [address] [place] [address] PCP - General Family Medicine 01/18/24 Libby Ward NP [address] [place] [address] Nurse Practitioner Family Medicine 02/05/23 Glazing Machine Operator Relationship Specialty Start Date End Date Cynthia Leong MD [address] [place] [address] PCP - [employer] 08/09/20 Cynthia Leong MD [address] [place] [address] PCP - General Family Medicine 01/18/24 Libby Ward NP [address] [place] [address] Nurse Practitioner Family Medicine 02/05/23 Glazing Machine Operator Relationship Specialty Start Date End Date Cynthia Leong MD [address] [place] [address] PCP - [employer] 08/09/20 Cynthia Leong MD [address] [place] [address] PCP - General Family Medicine 01/18/24 Libby Ward NP [address] [place] [address] Nurse Practitioner Family Medicine 02/05/23 Glazing Machine Operator Relationship Specialty Start Date End Date Cynthia Leong MD [address] [place] [address] PCP - [employer] 08/09/20 Cynthia Leong MD [address] [place] [address] PCP - General Family Medicine 01/18/24 Libby Ward NP [address] [place] [address] Nurse Practitioner Family Medicine 02/05/23 Glazing Machine Operator Relationship Specialty Start Date End Date Cynthia Leong MD [address] [place] [address] PCP - [employer] 08/09/20 Cynthia Leong MD [address] [place] [address] PCP - General Family Medicine 01/18/24 Libby Ward NP [address] [place] [address] Nurse Practitioner Family Medicine 02/05/23 Glazing Machine Operator Relationship Specialty Start Date End Date Cynthia Leong MD [address] [place] [address] PCP - [employer] 08/09/20 Cynthia Leong MD [address] [place] [address] PCP - General Family Medicine 01/18/24 Libby Ward, SANJEEV [address] [place] [address] Nurse Practitioner Family Medicine 02/05/23 Team Status: Inactive Member Role Status Dates Wilman Wise MD Attending Provider Active Sta rt: January 11, 2025 End: January 11, 2025 Glazing Machine Operator Relationship Specialty Start Date End Date Cynthia Leong MD [address] [place] [address] PCP - [employer] 08/09/20 Cynthia Leong MD [address] [place] [address] PCP - General Family Medicine 01/18/24 Libby Ward NP [address] [place] [address] Nurse Practitioner Family Medicine 02/05/23 Team Status: Active Member Role Status Dates PHYSICIAN NO FAMILY Primary Care Provider Active Team Status: Inactive Member Role Status Dates Ziggy White DO Attending Provider Active S tart: January 29, 2025 End: January 29, 2025 PHYSICIAN NO FAMILY Primary Care Provider Active Start: January 29, 2025 End: January 29, 2025 Team Status: Inactive Member Role Status Dates PHYSICIAN NO FAMILY Primary Care Provider Active Start: January 29, 2025 End: January 29, 2025 Ziggy White DO Attending Provider Active S tart: January 29, 2025 End: January 29, 2025 Team Status: Active Member Role Status Dates PHYSICIAN NO FAMILY Primary Care Provider Active Start: February 19, 2025 Ziggy White DO Attending Provider Active S tart: February 19, 2025 Team Status: Inactive Member Role Status Dates PHYSICIAN NO FAMILY Primary Care Provider Active Start: February 19, 2025 End: February 19, 2025 Ziggy White DO Attending Provider Active S tart: February 19, 2025 End: February 19, 2025 Team Status: Active Member Role Status Dates Cynthia Leong MD Primary Care Provide r Active Team Status: Inactive Member Role Status Dates Cynthia Leong MD Primary Care Provide r Active Start: February 22, 2025 End: February 22, 2025 Cynthia Leong MD Referring Provider A ctive Start: February 22, 2025 End: February 22, 2025 Cory Barahona MD Attending Provider Active Start: February 22, 2025 End: February 22, 2025 Team Status: Active Member Role Status Dates Cynthia Leong MD Primary Care Provide r Active Start: February 22, 2025 Cynthia Leong MD Referring Provider A ctive Start: February 22, 2025 Cory Barahona MD Attending Provider Active Start: February 22, 2025 Glazing Machine Operator Relationship Specialty Start Date End Date Cynthia Leong MD [address] [facility] [place] [address] PCP - [employer] 08/09/20 Cynthia Leong MD [address] [facility] [place] [address] PCP - General Family Medicine 01/18/24 Libby Ward NP [address] [facility] [place] [address] Nurse Practitioner Family Medicine 02/05/23 Glazing Machine Operator Relationship Specialty Start Date End Date Cynthia Leong MD [address] [place] [address] PCP - [employer] 08/09/20 Cynthia Leong MD [address] [place] [address] PCP - General Family Medicine 01/18/24 Libby Ward NP [address] [place] [address] Nurse Practitioner Family Medicine 02/05/23 Glazing Machine Operator Relationship Specialty Start Date End Date Cynthia Leong MD [address] [place] [address] PCP - Aet 08/09/20 Cynthia Leong MD [address] [place] [address] PCP - General Family Medicine 01/18/24 Libby Ward NP [address] [place] [address] Nurse Practitioner Family Medicine 02/05/23 Team Status: Inactive Member Role Status Dates Cynthia Leong MD Primary Care Provider Active Start: March 14, 2025 End: March 14, 2025 Cory Barahona MD Attending Provider Active Start: March 14, 2025 End: March 14, 2025 Cory Barahona MD Attending Provider Active Start: March 14, 2025 Goals (unrecognized section and content) Goals may [...] BE BASED ON THE PRIMARY CLINICAL RECORDS. [facility]. provides no warranty or guarantee of the accuracy or completeness of information in this document.
--- OUTSIDE RECORDS SUMMARY | 2025-03-23 19:20 | XMS_ITS | Encounter Summary ---
Author Organization [facility] Address [address] [facility] [place] [address] Care Team Providers Care Allergist/Pediatric Pulmonologist Name Role Phone Cynthia Hernandez MD Unavailable [phone] Libby Ward NP Unavailable [phone] Cynthia Hernandez MD Primary Care Provider [phone] Reason for Visit * Reason Comments Med Refill Encounter Details Date Type Department Care Team (Late st Contact Info) Description 06/12/[address] [facility] Family Medicine [address] [place] [id number] Cynthia Hernandez MD [address] [place], [place] [id number] Dizziness Social History Tobacco Use Types Packs/Day [...] documented as of this encounter Care Teams Allergist/Pediatric Pulmonologist Relationship Specialty Start Date End Date Cynthia Hernandez MD [address] [facility] [place] [address] PCP - [employer] 08/09/20 Cynthia Hernandez MD [address] [facility] [place] [address] PCP - General Family Medicine 01/18/24 Libby Wrad NP [address] [facility] [place] [address] Nurse Practitioner Family Medicine 02/05/23 documented as of this encounter
--- OUTSIDE RECORDS SUMMARY | 2025-03-23 19:20 | XMS_ITS | Encounter Summary ---
Author Organization [facility] Address [address] [facility] [place] [address] Care Team Providers Care Grain Blender Name Role Phone Cynthia Hernandez MD Unavailable [phone] Libby Ward NP Unavailable [phone] Cynthia Hernandez MD Primary Care Provider [phone] Encounter Details Date Type Department Care Team (Late st Contact Info) Description 01/15/2025 Results Follow-Up [facility] [place] [facility] Family Medicine [address] [place] [id number] Libby Ward NP [address] [place], [place] [id number] [place] [facility] [place] Tobacco Use Types Packs/Day Years [...] documented as of this encounter Care Teams Grain Blender Relationship Specialty Start Date End Date Cynthia Hernandez MD [address] [facility] [place] [address] PCP - Aet 08/09/20 Cynthia Hernandez MD [address] [facility] [place] [address] PCP - General Family Medicine 01/18/24 Libby Ward NP [address] [facility] [place] [address] Nurse Practitioner Family Medicine 02/05/23 documented as of this encounter
--- OUTSIDE RECORDS SUMMARY | 2025-03-23 19:20 | XMS_ITS | Encounter Summary ---
Author Organization [facility] Address [address] [place] [address] Care Team Providers Care Bobbin Cleaning Machine Operator Name Role Phone Cynthia Hernandez MD Unavailable Cynthia Hernandez MD Primary Care Provider [phone] Libby Ward NP Unavailable [phone] Mariam Glasgow MD Primary Care Provider Cynthia Hernandez MD Primary Care Provider Encounter Details Date Type Department Care Team (Late st Contact Info) Description 03/09/2023 Abstract [facility] [address] [place] [address] Shital Briscoe NP [address] [place] [id number] Social History Tobacco Use Types Packs/Day Years [...] on filedocumented in this encounter Care Teams Bobbin Cleaning Machine Operator Relationship Specialty Start Date End Date Cynthia Hernandez MD [address] [facility] [place] [address] PCP - Aet 08/09/20 Cynthia Hernandez MD [address] [facility] [place] [place], [place] [address] PCP - General Family Medicine 02/05/23 12/28/23 Mariam Glasgow MD [address] [place] [address] PCP - General Geriatric Medicine 12/29/23 01/17/24 Cynthia Hernandez MD [address] [facility] [address] [place], [place] [address] PCP - General Family Medicine 01/18/24 Libby Ward NP [address] [place], [place] [address] Nurse Practitioner Family Medicine 02/05/23 documented as of this encounter
--- OUTSIDE RECORDS SUMMARY | 2025-03-23 19:20 | XMS_ITS | Patient Health Record ---
Author Organization [facility] Address [address] [place] [address] Care Team Providers Care Rn First Assist Name Role Phone Charles Hendricks Unavailable [phone] Emily Seth Unavailable Results Component Value Reference Range Notes SCC- HAND 3 VIEW RIGHT [id number] Reviewed date:01/09/2025 09:43:21 AM Interpretation: Performing Lab: [...] Problem Status W/U Status Risk Notes Problem [id number] Right hand pain (M79.641) Active confirmed Problem [id number] Contusion of right hand, initial encounter (S60.221A) Active confirmed Problem 60737157 Other closed fracture of distal end of left radius, initial encounter (S52.592A) Active confirmed Problem Vertigo (071898930) Vertigo (R42) Active confir med Problem Closed fracture proximal humerus, greater tuberosity (663142046) Closed displaced fracture of greater tuberosity of left humerus, initial encounter (S42.252A) Active confirmed Problem Closed fracture of neck of femur (465728599) Closed fracture of neck of right femur, initial encounter (S72.001A) Active confirmed Problem 27579821 Other closed fracture of distal end of left ulna, initial encounter (S52.692A) Active confirmed Problem Fall () Fall (W19.XXXA) Active confirmed Problem Closed fracture of surgical neck of humerus (34209360) Closed displaced fracture of surgical neck of left humerus (S42.212A) Active confirmed Vital Signs Height 5'4 in 01/08/2025 Weight 133 lbs 01/08/2025 BMI 22.83 01/08/2025 Encounters Encounter Location Date Provider Diagnosis [facility] Office [address] [place] [address] 01/08/2025 Charles Hendricks Other closed fracture of distal end of left radius, initial encounter S52.592A ; Other closed fracture of distal end of left ulna, initial encounter S52.692A ; Right hand pain M79.641 and Contusion of right hand, initial encounter S60.221A [facility] [address] [place] [address] 01/12/20[place] Closed displaced fracture of surgical neck of left humerus S42.212A ; Closed displaced fracture of greater tuberosity of left humerus, initial encounter S42.252A and Fall W19.XXXA Assessments Encounter Date Diagnosis (ICD Code) Assessment Notes Treatment Notes Treatment Clinical Notes Section Notes 01/08/2025 Other closed fracture of distal end of left radius, initial encounter (ICD-10 - S52.592A) 01/08/2025 Other closed fracture of distal end of left ulna, initial encounter (ICD-10 - S52.692A) 01/12/2025 Closed displaced fracture of greater tuberosity of left humerus, initial encounter (ICD-10 - S42.252A) 01/12/2025 Closed displaced fracture of surgical neck of left humerus (ICD-10 - S42.212A) 01/12/2025 Fall (ICD-10 - W19.XXXA) 01/08/2025 Right hand pain (ICD-10 - M79.641) 01/08/2025 Contusion of right hand, initial encounter (ICD-10 - S60.221A) 01/08/2025 Other Treatment options were discussed with [...] hand contusion. Import medication Plan Of Treatment No Information Insurance Providers Payer Name Payer Address Payer Phone Subscriber Number Group Number Insured Name Patient Relationship to Insured Coverage Start Date Coverage End Date Medicare [employer] [address] [place] [phone] [id number] DEXTER MCCARTHY Self - patient is the insured Medical (General) History Medical History History ICD Code Hypothyroidism High Blood Pressure Surgical History Surgery Date(Month/Year) hip replacement 10/2023
--- OUTSIDE RECORDS SUMMARY | 2025-03-23 19:20 | XMS_ITS | Clinical Summary ---
Author Organization [facility] Address [address] [facility] [place] [address] Care Team Providers Care Laboratory Mechanic Helper Name Role Phone Cynthia Hernandez MD Unavailable [phone] Libby Ward NP Unavailable [phone] Cynthia Hernandez MD Primary Care Provider [phone] Allergies Active Allergy Reactions Criticality Noted Date Comments Octacosanol 05/31/2023 Medications acetaminophen (Tylenol 8 Hour) 650 MG ER tablet Take 650 mg by mouth every 8 (eight) hours if needed for mild pain. Do not crush, chew, or split. Active cetirizine (ZyrTEC) 10 MG tablet Take by mouth. Activ e calcitriol (Rocaltrol) 0.25 MCG capsule Take 0.25 mcg by mouth Daily Active cholecalciferol (Vitamin D-3) 25 MCG (1000 UT) capsule Take 1,000 Units by mouth Daily Active escitalopram (Lexapro) 5 MG tabletIndications: Mild depression Take 1 tablet (5 mg) by mouth Daily 30 tablet 11 01/04/20 24 Active Additional Information Patient not taking.Reported on 02/13/2025 diazePAM (Valium) 5 MG tablet TAKE 1 [...] or split.. 120 tablet 09/26/19 25 Active Additional Information Patient not taking.Reported on 02/13/2025 lisinopril 5 MG tabletIndications: Essential hypertension TAKE 1 TABLET BY MOUTH DAILY 90 tablet 1 12/13/19 25 Active omeprazole (PriLOSEC) [address] capsuleIndications :Gastroesophageal reflux disease without esophagitis Take 1 capsule (40 mg) by mouth Daily 90 capsule 1 12/16/19 25 Active atorvastatin (Lipitor) 10 MG tabletIndications: Mixed hyperlipidemia Take 1 tablet (10 mg) by mouth Daily 100 tablet 1 12/16/19 25 025 Active metoprolol succinate XL (Toprol-XL) 25 MG 24 hr tabletIndications: Essential hypertension Take 1 tablet (25 mg) by mouth in the morning. 90 tablet 1 12/16/19 25 Active levothyroxine (Synthroid, Levoxyl) 75 MCG tabletIndications: Acquired hypothyroidism Take 1 tablet (75 mcg) by mouth in the morning. Take before meals. 90 tablet 1 12/16/19 25 Active amoxicillin (Amoxil) 500 MG tablet TAKE 4 TABLETS BY MOUTH 1 HOUR PRIOR TO APPOINTMENT 02/12/20 25 Active amLODIPine (Norvasc) 5 MG tablet Take by mouth Daily Active docusate sodium (Colace) 100 MG capsule Take 100 mg by mouth in the morning and 100 mg before bedtime. Active fluticasone (Flonase) 50 MCG/ACT nasal spray Administer 1 spray into each nostril Daily Shake gently. Before first use, prime pump. After use, clean tip and replace cap. Active magnesium oxide (Mag-Ox) 400 mg tablet 400 mg Daily Active Melatonin 5 MG capsule Take by mouth Active polyethylene glycol, PEG, 3350 (Miralax) 17 g packet Take by mouth Active traZODone (Desyrel) 50 MG tabletIndications: Primary insomnia Take 1 tablet (50 mg) by mouth as needed at bedtime for sleep 30 tablet 2 03/13/20 25 025 Active traZODone (Desyrel) 50 MG tabletIndications: Primary insomnia Take 1 tablet (50 mg) by mouth as needed at bedtime for sleep 30 tablet 02/17/20 25 025 Discontin ued(Reord er) Active Problems Problem Noted Date Diagnosed Date [...] Encounters Date Type Department Care Team Description 03/13/2025 Refill [facility] [address] [facility] [place] [address] Cynthia Hernandez MD Primary insomnia 03/05/2025 Orders Only [facility] [address] [place] [address] Cynthia Mcdonald MA Spinal stenosis of lumbar region, unspecified whether neurogenic claudication present 03/02/2025 12:30 PM EDT Ancillary [facility] [address] [place] [address] Pain in both lower extremities; Frequent falls 03/02/2025 11:30 AM EDT [facility] [address] [place] [address] Frequent falls; Chronic midline low back pain with left-sided sciatica; Claudication 03/02/2025 Results Follow-Up [facility] [address] [place] [address] Cynthia Hernandez MD MR lumbar spine wo contrast, Vascular US ankle brachial index (KWABENA) without exercise 03/02/2025 Travel 02/27/2025 Telephone [facility] [address] [place] [address] Cynthia Hernandez MD 02/16/2025 Orders Only [facility] [address] [place] [address] Cynthia Hernandez MD Primary insomnia (Primary Dx) 02/16/2025 Telephone [facility] [address] [place] [address] Cynthia Hernandez MD 02/13/2025 10:20 AM EDT Office Visit [facility] [address] [facility] [place] [address] Cynthia Hernandez MD Monoclonal gammopathy (Primary Dx); Pain in both lower extremities; Frequent falls; Chronic midline low back pain with left-sided sciatica; Claudication 02/13/2025 [facility] [address] [facility] [place] [address] Cynthia Hernandez MD 02/13/2025 Travel 02/07/2025 [facility] [address] [facility] [place] [address] Cynthia Hernandez MD 01/15/2025 Results Follow-Up [facility] [address] [facility] [place] [address] Libby Ward NP [place] [facility] [place] 01/14/2025 [facility] [address] [facility] [place] [address] Cynthia Hernandez MD 01/11/2025 Clinisync Result Encounter [facility] External Department Unsolicited Provider, Generic External Data 01/08/2025 [facility]phone [facility] [address] [facility] [place] [address] Cynthia Hernandez MD 01/08/2025 Telephone [facility] [address] [facility] [place] [address] Cynthia Hernandez MD 01/08/2025 Telephone [facility] [address] [place] [address] Clara Echeverria, INSTRUCTIONAL SYSTEMS DESIGN CONSULTANT Broken wrist 01/07/2025 Abstract [facility] [address] [facility] [place] [address] Cynthia Hernandez MD 01/05/2025 Results Follow-Up [facility] [address] [place] [address] Cynthia Hernandez MD Vitamin B12, Protein electrophoresis, serum, TSH W/REFLEX TO FT4, Additional followed-up results: 7 01/04/2025 12:00 PM EDT Treatment [facility] [address] [facility] [address] [place] [address] Judith Echeverriaissa, INSTRUCTIONAL SYSTEMS DESIGN CONSULTANT Lumbar paraspinal muscle spasm (Primary Dx); Weakness of both lower extremities 01/04/2025 Bamboo flowsheet [facility] [address] [place] [address] Judith Echeverriaissa, INSTRUCTIONAL SYSTEMS DESIGN CONSULTANT 01/04/2025 Travel 01/02/2025 11:30 AM EDT Treatment [facility] [address] [facility] [address] [place] [address] Mayur Agarwal, PT Lumbar paraspinal muscle spasm (Primary Dx); Weakness of both lower extremities; Frequent falls 01/02/2025 Bamboo flowsheet [facility] [address] [facility] [address] [place] [address] Mayur Agarwal, PT 01/02/2025 Travel 2024 10:00 AM EDT Office Visit [facility] [address] [place] [address] Cynthia Hernandez MD Peripheral polyneuropathy (Primary Dx); Wellness examination; Herpes simplex; Essential hypertension ; Mixed hyperlipidemia ; Acquired hypothyroidism ; Spinal stenosis of lumbar region, unspecified whether neurogenic claudication present 2024 Travel 12/28/2024 11:30 AM EDT Treatment [facility] [address] [place] [address] Judith Echeverriaissa, INSTRUCTIONAL SYSTEMS DESIGN CONSULTANT Lumbar paraspinal muscle spasm (Primary Dx); Weakness of both lower extremities 12/28/2024 Bamboo flowsheet [facility] [address] [place] [address] Clara Echeverria, INSTRUCTIONAL SYSTEMS DESIGN CONSULTANT 12/28/2024 Travel 12/26/2024 10:00 AM EDT Treatment [facility] [address] [facility] [address] [place] [address] Clara Echeverria, INSTRUCTIONAL SYSTEMS DESIGN CONSULTANT Lumbar paraspinal muscle spasm (Primary Dx); Weakness of both lower extremities; Frequent falls 12/26/2024 Bamboo flowsheet [facility] [address] [facility] [address] [place] [address] Clara Echeverria, INSTRUCTIONAL SYSTEMS DESIGN CONSULTANT 12/26/2024 Travel 12/21/2024 11:30 AM EDT Treatment [facility] [address] [facility] [address] [place] [address] Clara Echeverria, INSTRUCTIONAL SYSTEMS DESIGN CONSULTANT Lumbar paraspinal muscle spasm (Primary Dx); Weakness of both lower extremities; Frequent falls 12/21/2024 Bamboo flowsheet [facility] [address] [facility] [address] [place] [address] Clara Echeverria, INSTRUCTIONAL SYSTEMS DESIGN CONSULTANT 12/21/2024 Travel from Last 3 Months Immunizations Immunization Administration [...] Sign Reading Time Taken Comments Blood Pressure 122/72 02/13/2025 10:22 AM EDT Pulse 81 02/13/2025 10:22 AM EDT Temperature 36.9 C (98.5 F) 09/26/2024 11:01 AM EST Respiratory Rate 18 2024 9:56 AM EDT Oxygen Saturation 99% 02/13/2025 10: 22 AM EDT Inhaled Oxygen Concentration - - Weight 64.8 kg (142 lb 12.8 oz) 025 10:22 AM EDT Height 160 cm (5' 3 ) 02/13/2025 10:22 AM EDT Body Mass Index 25.3 02/13/2025 10:22 AM EDT Plan of Treatment Health Maintenance Due Date Last Done Comments Influenza Vaccine (#1) 2025 3, 06/23/2022, 05/09/2021, Additional history exists Pneumococcal Vaccine: 65+ Years Completed 3 Procedures Procedure Name Priority Date/Time Associated Diagnosis Comments MR LUMBAR SPINE WO CONTRAST Routine 03/02/2025 12:34 PM EDT Pain in both lower extremities Frequent falls VASC US ANKLE BRACHIAL INDEX (KWABENA) WITHOUT EXERCISE Routine 03/02/2025 12:06 PM EDT Frequent falls Chronic midline low back pain with left-sided sciatica Claudication [place] [facility] [place] Routine 01/11/2025 9:20 PM EDT TEST AUTHORIZATION Routine 2024 10 :41 AM [...] polyneuropathy from Last 3 Months Results * MR lumbar spine wo contrast (03/02/2025 12:34 PM EDT) Anatomical Region Laterality Modality Spine, L-spine Magnetic Resonan ce 03/02/2025 2:06 PM EDT Impressions 03/02/2025 2:41 PM EDT Degenerative changes of the lumbar spine as detailed. ELECTRONICALLY SIGNED BY: DO Carine Gilmore 03/02/2025 2:41 PM EDT EXAM: MR LUMBAR SPINE WO CONTRAST History: [...] paravertebral soft tissues appear within normal limits. Procedure Note Zaki Berman, DO - 03/02/2025 EXAM: MR LUMBAR SPINE WO CONTRAST History: Low back pain. Claudication. Technique: Multiplanar multisequence MRI of the lumbar spine was obtainedwithout intravenous contrast. Comparison: MRI of the lumbar spine January 20, 2023 Findings: The conus medullaris ends normally. Mild levocurvature. The vertebral body heights are well maintained. Mild chronic anteriorwedge compression deformity of T12. There is no aggressive bone marrowsignal abnormality. Disc desiccation and mild intervertebral disc height loss throughout thelumbar spine. Sacralization of L5 on the left. L1-L2: Small disc bulge. Mild facet arthropathy. Ligamentum flavumthickening. Mild spinal canal stenosis. Mild bilateral neural foraminalstenosis. L2-L3: Small disc bulge. Mild facet arthropathy. Ligamentum flavumthickening. Moderate to severe spinal canal stenosis. Mild left andmoderate right neuroforaminal stenosis. L3-L4: Approximately 3 mm of anterolisthesis of L3 on L4 secondary toadvanced facet arthropathy. Small disc bulge. Ligamentum flavumthickening. Severe spinal canal stenosis. Mild bilateral neuroforaminalstenosis. L4-L5: Minimal anterolisthesis of L4 on L5 secondary to advanced facetarthropathy. Small disc bulge. Moderate spinal canal stenosis. Mild leftand moderate right neuroforaminal stenosis. L5-S1: No Simmie disc bulge. Mild facet arthropathy. No neuroforaminal orspinal canal stenosis. Visualized paravertebral soft tissues appear within normal limits. IMPRESSION: Degenerative changes of the lumbar spine as detailed. ELECTRONICALLY SIGNED BY: Zaki Berman DO us Cynthia Hernandez MD IMG MRI PROCEDURES Final Resu lt * Vascular US ankle brachial index (KWABENA) without exercise (03/02/2025 12:06 PM EDT) Anatomical Region Laterality Modality Lower Extremities Ultrasound 03/02/2025 3:34 PM EDT Impressions 03/02/2025 3:37 PM EDT MODERATE DISEASE ON THE RIGHT ACCORDING TO THE ANKLE-BRACHIAL INDEX AT THE POSTERIOR TIBIAL ARTERY. NO EVIDENCE FOR SIGNIFICANT DISEASE ON THE LEFT. ELECTRONICALLY SIGNED BY: Tayo Steinberg MD Narrative 03/02/2025 3:37 PM EDT [facility] US ANKLE BRACHIAL INDEX (KWABENA) WITHOUT EXERCISE [...] greater. The plethysmography waveforms are mildly abnormal. Procedure Note Tayo Steinberg MD - 03/02/2025 [facility] US ANKLE BRACHIAL INDEX (KWABENA) WITHOUT EXERCISE CLINICAL HISTORY: Repeated falls. Peripheral vascular disease. Legweakness. COMPARISON: None available. FINDINGS: RIGHT LEG: the brachial systolic pressure is 193, the posterior tibial ankle pressure is 135, the dorsalis pedis ankle pressure is unable to be obtained, and the digit pressure is 160. The ankle-brachial index at the posterior tibial artery is 0.7, withnormal 1.0 or greater The toe-brachial index is 0.83, with normal 0.7 or greater. The plethysmography waveforms are mildly abnormal. LEFT LEG: the brachial systolic pressure is 193, the posterior tibial ankle pressure is 200, the dorsalis pedis ankle pressure is 199, and the digit pressure is 145. The ankle-brachial index at the posterior tibial artery is 1.0, withnormal 1.0 or greater. The dorsalis pedis to brachial index is 1.0, with normal 1.0 or greater. The toe-brachial index is 0.75, with normal 0.7 or greater. The plethysmography waveforms are mildly abnormal. IMPRESSION: MODERATE DISEASE ON THE RIGHT ACCORDING TO THE ANKLE-BRACHIAL INDEX AT THEPOSTERIOR TIBIAL ARTERY. NO EVIDENCE FOR SIGNIFICANT DISEASE ON THE LEFT. ELECTRONICALLY SIGNED BY: Tayo Steinberg MD us Cynthia Hernandez MD IMG US PROCEDURES Final Resul t * (ABNORMAL) [place] [facility] [place]01/11/2025 9:20 PM EDT) [facility]URE [facility] [place] [facility] [place] [facility] [place] [facility] [place] [address] [place] [address] [facility] [place] [facility] O:KLEPNE Isolated [facility] [place] [facility] [place] [facility] Organism Comments [facility] [place] [facility] [place] 30,000 CFU/ML [facility] [place] [facility] [place] Organism: 1.1 Antibiotic Interpretation KODAK Status [facility] URINE CULTURE - [facility] Amikacin S F(S) [facility] URINE CULTURE - [facility] Amoxicillin/Clavul anate S F(S) [facility] URINE CULTURE - [facility] Aztreonam S F(S) [facility] URINE CULTURE - [facility] Ceftazidime S F(S) [facility] URINE CULTURE - [facility] Ceftazidime/Avibac obrien S F(S) [facility] URINE CULTURE - [facility] Ceftolozane/Tazoba ctam S F(S) [facility] URINE CULTURE - [facility] Ciprofloxacin S F(S) [facility]INE CULTURE - [facility] Ertapenem S F(S) [facility] URINE CULTURE - [facility] Gentamicin S F(S) [facility]INE CULTURE - [facility] Levofloxacin S F(S) [facility] URINE CULTURE - [facility] Meropenem S F(S) [facility] URINE CULTURE - [facility] Meropenem/Vaborbac obrien S F(S) [facility] URINE CULTURE - [facility] Nitrofurantoin I F(I) [facility] URINE CULTURE - [facility] Tetracycline S F(S) [facility]INE CULTURE - [facility] Tigecycline S F(S) [facility]INE CULTURE - [facility] Tobramycin S F(S) [facility] URINE CULTURE - [facility] Ampicillin/Sulbact am S F(S) [facility] URINE CULTURE - [facility] Cefazolin S F(S) [facility]INE CULTURE - [facility] Cefepime S F(S) [facility]INE CULTURE - [facility] Ceftriaxone S F(S) [facility]INE CULTURE - [facility] Cefuroxime S F(S) [facility] C[facility]URE - [facility] Piperacillin/Tazob actam S F(S) [facility]INE CULTURE - [facility] Trimethoprim/Sulfa S F(S) [facility] 01/11/2025 9:20 PM EDT 01/12/2025 12:02 PM EDT Narrative SHARON - 01/15/2025 11:20 AM EDT Generic External Data Provider LAB BLOOD ORDERAB LES Final Result [facility] * TEST AUTHORIZATION (2024 10:41 AM EDT) TEST NAME: IMMUNOFIXAT ION, SERUM [facility] TEST CODE: 549SB FeZo CLIENT CONTACT: DEAN QURESHI [facility] REPORT ALWAYS MESSAGE SIGNATURE [facility] Comment: The laboratory testing on this patient was verbally requested or confirmed by the ordering physician or his or her authorized bank representative after contact with an employee of [employer]. Federal regulations require that we maintain on file written authorization for all laboratory testing. Accordingly we are asking that the ordering physician or his or her authorized bank representative sign a copy of this report and promptly return it to the client experience administrator. Signature: COMMENT [facility] Comment: Please have the ordering physician or his or her authorized bank representative sign a copy of this report and promptly return it by faxing it to: [phone] or by returning the form to your channeler outsole. 2024 10:4 1 AM EDT 2024 10:43 AM EDT Narrative [facility] - 01/10/2025 11:20 AM EDT MULTIPLE TESTING PRIORITIES; ROUTINE TESTING TO FOLLOW. Resulting Agency Comment Performing Organization Information Site ID: QPT Name: [facility] Address: [address] [place] [address], [address] [place] [phone] Director: Juan Alberto Harrell MD Cynthia Hernandez MD LAB BLOOD ORDERABLES Final Re sult [facility] * (ABNORMAL) ANTINUCLEAR ANTIBODIES TITER AND [...] AC-1: Homogeneous International Consensus on JOANIE Patterns (https://doi.org/10.1515/vmin-1932-3664) 2024 10:4 1 AM EDT 2024 10:43 AM EDT Narrative [facility] - 01/10/2025 11:20 AM EDT MULTIPLE TESTING PRIORITIES; ROUTINE TESTING TO FOLLOW. Resulting Agency Comment Performing Organization Information Site ID: QPT Name: [facility] Address: [address] [place] [address], [address] [place] [phone] Director: Juan Alberto Harrell MD Cynthia Hernandez MD LAB BLOOD ORDERABLES Final Re sult Performing Organization Address [facility] de Phone Number [facility] * TSH W/REFLEX TO FT4 (2024 10:41 AM EDT) TSH W/REFLEX TO FT4 1.61 0.40 - 4.50 mIU/L [facility] 2024 10:4 1 AM EDT 2024 10:43 AM EDT Narrative [facility] - 01/10/2025 11:20 AM EDT MULTIPLE TESTING PRIORITIES; ROUTINE TESTING TO FOLLOW. Resulting Agency Comment Performing Organization Information Site ID: QPT Name: [facility] Address: [address] [place] [address], [address] [place] [phone] Director: Juan Alberto Harrell MD Cynthia Hernandez MD LAB BLOOD ORDERABLES Final Re sult Performing Organization Address [facility] de Phone Number [facility] * Methylmalonic acid, [...] neural tube defects and intrauterine growth restriction. [facility] utilized Multi-Modal Decomposition (MMD) analysis to establish first and second trimester-specific MMA reference intervals in , as given below: MMA, First trimester (<13 wks gestation): 58-167 nmol/L MMA, Second trimester (13-23 wks gestation): 63-241 nmol/L Note 1 This test was developed and its analytical performance characteristics have been determined by [facility]. It has not been cleared or approved [...] Performing Organization Information Site ID: QPT Name: [facility] Address: [address] [place] [address], [address] [place] [phone] Director: Juan Alberto Harrell MD Cynthia Hernandez MD LAB BLOOD ORDERABLES Final Re sult [facility] * Hepatitis panel, acute (2024 10:41 AM EDT) HEPATITIS A IGM NON-REACTI VE NON-REACT ASAEL [facility] Comment: For additional information, please refer to http://[employer]/faq/NAB734 (This link is being provided for informational/ educational purposes only.) HEPATITIS B SURFACE ANTIGEN NON-REACTI VE NON-REACT ASAEL [facility] Comment: For additional information, please refer to http://[employer]/faq/NTV057 (This link is being provided for informational/ educational purposes only.) HEPATITIS B CORE ANTIBODY (IGM) NON-REACTI VE NON-REACT ASAEL [facility] Comment: For additional information, please refer to http://[employer]/faq/HQX248 (This link is being provided for informational/ educational purposes only.) HEPATITIS C ANTIBODY NON-REACTI VE NON-REACT ASAEL [facility] Comment: HCV antibody was non-reactive. There is no laboratory evidence of HCV infection. In most cases, no further action is required. However, if recent HCV exposure is suspected, a test for HCV RNA (test code 17276) is suggested. For additional information please refer to http://[employer]/faq/FUF22s8 (This link is being provided for informational/ educational purposes only.) Blood Venous blood specimen / Unknown 2024 10:41 AM EDT 2024 10:43 AM EDT Narrative [facility] - 01/10/2025 11:20 AM EDT MULTIPLE TESTING PRIORITIES; ROUTINE TESTING TO FOLLOW. Resulting Agency Comment Performing Organization Information Site ID: QPT Name: [facility] Address: [address] [place] [address], [address] [place] [phone] Director: Juan Alberto Hrarell MD us Cynthia Hernandez MD LAB BLOOD ORDERABLES Final Re sult Performing Organization Address [facility] de Phone Number [facility] * Sedimentation rate, automated (2024 10:41 AM EDT) SED RATE BY MODIFIED ASHLEY 9 < OR = 30 mm/h [facility] Blood Venous blood specimen / Unknown 2024 10:41 AM EDT 2024 10:43 AM EDT Narrative [facility] - 01/10/2025 11:20 AM EDT MULTIPLE TESTING PRIORITIES; ROUTINE TESTING TO FOLLOW. Resulting Agency Comment Performing Organization Information Site ID: QPT Name: [facility] Address: [address] [place] [address], [address] [place] [phone] Director: Juan Alberto Harrell MD us Cynthia Hernandez MD LAB BLOOD ORDERABLES Final Re sult Performing Organization Address [facility] de Phone Number [facility] * Immunofixation electrophoresis (2024 10:41 AM EDT) SWATI INTERPRETATION [facility] Comment:IgG lambda monoclona l band present. 2024 10:4 1 AM EDT 2024 10:43 AM EDT Narrative [facility] - 01/10/2025 11:20 AM EDT MULTIPLE TESTING PRIORITIES; ROUTINE TESTING TO FOLLOW. Resulting Agency Comment Performing Organization Information Site ID: QPT Name: [facility] Address: [address] [place] [address], [address] [place] [phone] Director: Juan Alberto Harrell MD us Cynthia Hernandez MD LAB BLOOD ORDERABLES Final Re sult Performing Organization Address [facility] Co de Phone Number [facility] * (ABNORMAL) JOANIE (2024 10:41 AM EDT) Pathologist [facility] JOANIE SCREEN, IFA POSITIVE( A) NEGATIVE [facility] Comment: JOANIE IFA is a first line screen for detecting the presence of up to approximately 150 autoantibodies in various autoimmune diseases. A positive JOANIE IFA result is suggestive of autoimmune disease and reflexes to titer and pattern. Further laboratory testing may be considered if clinically indicated. For additional information, please refer to http://education.[employer]/faq/WFE939 (This link is being provided for informational/ educational purposes only.) Blood Venous blood specimen / Unknown 2024 10:41 AM EDT 2024 10:43 AM EDT Narrative [facility] - 01/10/2025 11:20 AM EDT MULTIPLE TESTING PRIORITIES; ROUTINE TESTING TO FOLLOW. Resulting Agency Comment Performing Organization Information Site ID: QPT Name: [facility] Address: [address] [place] [address], [address] [place] [phone] Director: Juan Alberto Harrell MD us Cynthia Hernandez MD LAB BLOOD ORDERABLES Final Re sult Performing Organization Address [facility] de Phone Number [facility] * (ABNORMAL) Protein electrophoresis, serum (2024 10:41 AM EDT) Pathologist [facility] PROTEIN, TOTAL 6.3 6.1 - 8.1 g/dL [...] Performing Organization Information Site ID: QPT Name: [facility] Address: [address] [place] [address], [address] [place] [phone] Director: Juan Alberto Harrell MD us Cynthia Hernandez MD LAB BLOOD ORDERABLES Final Re sult Performing Organization Address [facility] de Phone Number QUEST * Vitamin B12 [...] Performing Organization Information Site ID: QPT Name: [facility] Address: [address] [place] [address], [address] [place] [phone] Director: Juan Alberto Harrell MD us Cynthia Hernandez MD LAB BLOOD ORDERABLES Final Re sult Performing Organization Address [facility] de Phone Number [facility]ST from Last 3 Months Insurance [employer] MED[employer]ARE [employer] Care Teams Laboratory Mechanic Helper Relationship Specialty Start Date End Date Cynthia Hernandez MD [address] [place], [place] [id number] PCP - t 08/09/20 Cynthia Hernandez MD [address] [place], [place] [id number] PCP - General Family Medicine 01/18/24 Libby Ward NP [address] [place] [id number] Nurse Practitioner Family Medicine 02/05/23
--- OUTSIDE RECORDS SUMMARY | 2025-03-23 19:20 | XMS_ITS | Encounter Summary ---
Author Organization [facility] Address [address] [place] [address] Care Team Providers Care Product Builder Name Role Phone Cynthia Hernandez MD Unavailable [phone] Cynthia Hernandez MD Primary Care Provider Libby Ward NP Unavailable [phone] Mariam Glasgow MD Primary Care Provider Cynthia Hernandez MD Primary Care Provider [phone] Encounter Details Date Type Department Care Team (Late st Contact Info) Description 01/01/2023 Orders Only [facility] Family Medicine [address] [facility] [place] [address] Shital Briscoe NP [address] [place] [phone] Social History Tobacco Use Types Packs/Day Years [...] on filedocumented in this encounter Care Teams Product Builder Relationship Specialty Start Date End Date Cynthia Hernandez MD [address] [facility] [place] [address] PCP - Aet 08/09/20 Cynthia Hernandez MD [address] [facility] [place] [address] PCP - General Family Medicine 02/05/23 12/28/23 Mariam Glasgow MD [address] [place] [address] PCP - General Geriatric Medicine 12/29/23 01/17/24 Cynthia Hernandez MD [address] [facility] [place] [address] PCP - General Family Medicine 01/18/24 Libby Ward NP [address] [facility] [place], [place] [phone] Nurse Practitioner Family Medicine 02/05/23 documented as of this encounter
--- NOTE | 2025-03-23 19:24 | PC.NURSE ---
Awake and alert on arrival. Oriented to person, place, time and events.
--- NOTE | 2025-03-23 19:53 | CT_ITS ---
The [address] [address] Patient Name: DEXTER MCCARTHY MRN: [id number] date: 1945 Sex: F Assigned Patient Location: ER Current Patient Location: ED.MAIN Accession/Order Number: [id number] Exam Date: 03/23/2025 20:50 Report Date: 03/23/2025 20:56 At the request of: GERRY SUH NP Procedure: CT head/brain wo con Unenhanced head CT TECHNIQUE: Contiguous axial imaging of the head. The CT exam was performed using one or more the following dose reduction techniques: Automated exposure control, adjustment of the MA and/or Kv according to patient size, or use of the iterative reconstruction technique. COMPARISON: 01/11/2025 HISTORY: Syncope. VENTRICLES: Within normal limits ATROPHY: Similar diffuse atrophy BRAIN PARENCHYMA: Decreased density of the white matter is most consistent with chronic small vessel disease. HEMORRHAGE: None HERNIATION: No mass effect or herniation INFARCTION: No recent vascular distribution infarction is seen. EXTRA-AXIAL FLUID COLLECTIONS None MIDBRAIN: Unremarkable OMAR: Unremarkable MEDULLA: Unremarkable SINUSES: Unremarkable ORBITS: Grossly unremarkable MASTOIDS: Unremarkable BONY STRUCTURES Intact ADDITIONAL FINDINGS: Atherosclerosis of the carotid siphons and V4 segments CT/CT head/brain wo con IMPRESSION: No acute findings. Impression dictated by: Nick Stokes M.D. 03/23/2025 8:56 PM Dictation Location: [place] [address] Electronically authenticated by: [id number] Y Date: 03/23/2025 20:56
--- NOTE | 2025-03-23 19:54 | ECG_ITS ---
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 Measurements Intervals [place] Rate: 74 P: 49 [place]: 148 QRS: -5 QRSD: 72 T: 19 QT: 388 QTc: 416 Interpretive Statements 1100 Sinus rhythm 4068 Nonspecific [place] abnormality 8102 Low QRS voltage in chest leads 9130 borderline ECG Compared to ECG 10/07/2023 18:47:21 Low QRS voltage now present Sinus arrhythmia no longer present Electronically Signed On 03-23-2025 20:54:38 EDT by ROCÍO BRAUN M.D.
--- NOTE | 2025-03-23 19:59 | ED_ITS ---
HPI HPI - General Adult General Chief complaint: Syncope Stated complaint: syncope Time Seen by Provider: 03/23/25 19:45 Source: patient Mode of arrival: ambulance Limitations: no limitations History of Present Illness HPI narrative: The patient is an 79-year-old female who presents to the emergency department today for evaluation concerns for syncopal episode. The patient is h ere with her , endorses this evening she was getting ready to go upstairs to take a shower with a LEAD PHP DEVELOPER that comes over to help with this. The patient states she began feeling a little weak and does not recall details following this. The patient states she was sat in her rolling walker and was noted to have lost consciousness. There was concerns from the LEAD PHP DEVELOPER the patient was convulsing and exhibiting seizure-like behavior. The patient's mentions when she regained consciousness she was confused and per the LEAD PHP DEVELOPER appeared postictal. There were no episodes of incontinence. No concerns for head injury. There was reported when EMS arrived patient's SBP was in the 60s and she did receive a liter of fluids and route to the ER. Patient's mentions this is the third episode of similar events since the beginning of February when she was discharged from a rehabilitative facility following injuries from a fall where she broke her hip and shoulder on separate occasions. Patient denies any headache, vision difficulties, chest pain, shortness of breath, abdominal pain, or nausea/vomiting. She denies any pain to extremities including weakness, paresthesias, or loss of movement. The patient's mentions in the past she has had syncopal episodes however never has been evaluated by cardiology or neurology. No history of arrhythmias. No history of cardiovascular events including WI or CVA. Historically patient is not on any anticoagulant or anticoagulant medications. Related Data Home Medications ?Medication ?Instructions ?Recorded ?Confirmed atorvastatin 10 mg tablet 10 mg PO DAILY 07/29/2303/09 levothyroxine 75 mcg tablet 75 mcg PO DAILY 07/29/23 0 03/23/25 metoprolol succinate 25 mg 25 mg PO DAILY 07/29/23 tablet,extended release 24 hr omeprazole 40 mg capsule,delayed 40 mg PO DAILY 03/23/25 release acetaminophen 500 mg tablet 1,000 mg PO Q6H PRN pain 0 09/13/23 03/23/25 (Tylenol Extra Strength) lisinopril 5 mg tablet 5 mg PO DAILY 01/07/2503/23 escitalopram oxalate 5 mg tablet 5 mg PO DAILY 5 03/23/25 trazodone 50 mg tablet 50 mg PO .QHS PRN sleep 03/0903/23/25 Previous Rx's ?Medication ?Instructions ?Recorded fluticasone propionate 50 2 spray intranasal QD #16 gr ams 10/12/23 mcg/actuation nasal spray,suspension amlodipine 5 mg tablet 5 mg PO QD #0 tabs 01/15/25 food supplemt, lactose-reduced 1 ea PO BID #0 mL 01/15 0.04 gram-1.05 kcal/mL oral liquid (Ensure Original) magnesium oxide 400 mg (241.3 mg 400 mg PO QD 30 days #0 tabs 01/15/25 magnesium) tablet Allergies Allergy/AdvReac Type Severity Reaction Status Date / Time No Known Drug Allergies Allergy Verified 03/23/25 19:20 Opioid HPI Opioid Management Most Recent Opioid Data: Last Pain Scale 5 01/17/25, 10:32 Last Pain Intensity 5 01/15/25, 12:00 Last ORT Total Score 0 01/11/25, 22:37 Last ORT Risk Category Low Risk 01/11/25, 22:37 Ur Phencyclidine Scrn, (NEGATIVE) Negative , 20:10 Review of Systems ROS Status of ROS 10 or more systems reviewed and unremark able except as noted in history and below [facility] Medical History (Updated 03/23/25 @ 21:25 by Priya Thacker NP) Dementia ?F03.90 - Unspecified dementia, unspecified severity, without behavioral disturbance, psychotic disturbance, mood disturbance, and anxiety (ICD-10) Essential (primary) hypertension ?I10 - Essential (primary) hypertension (ICD-10) Vertigo ?R42 - Dizziness and giddiness (ICD-10) Sinus arrhythmia seen on electrocardiogram ?I49.8 - Other specified cardiac arrhythmias (ICD-10) Hypothyroid ?E03.9 - Hypothyroidism, unspecified (ICD-10) Sacroiliac dysfunction ?M53.3 - Sacrococcygeal disorders, not elsewhere classified (ICD-10) Lumbar spondylosis ?M47.816 - Spondylosis without myelopathy or radiculopathy, lumbar region (ICD-10) Lumbar stenosis with neurogenic claudication ?M48.062 - Spinal stenosis, lumbar region with neurogenic claudication (ICD- 10) DDD (degenerative disc disease), lumbar ?M51.36 - Other intervertebral disc degeneration, lumbar region (ICD-10) Low back pain ?M54.50 - Low back pain, unspecified (ICD-10) Irregular heartbeat ?I49.9 - Cardiac arrhythmia, unspecified (ICD-10) Acid reflux ?K21.9 - Gastro-esophageal reflux disease without esophagitis (ICD-10) Rheumatoid arthritis ?M06.9 - Rheumatoid arthritis, unspecified (ICD-10) Osteoarthritis ?M19.90 - Unspecified osteoarthritis, unspecified site (ICD-10) Hearing deficit ?H91.90 - Unspecified hearing loss, unspecified ear (ICD-10) Hypertension ?I10 - Essential (primary) hypertension (ICD-10) High cholesterol ?E78.00 - Pure hypercholesterolemia, unspecified (ICD-10) Family History (Updated 01/11/25 @ 22:27 by Patti Butler) Father Family history of hypertension Family history of stroke Mother Family history of hypertension Family history of myocardial infarction, Onset Age: 45 Social History Within the past year, how often did you have a drink containing alcohol: monthly or less Within the past year, how often did you have six or more drinks on one occasion: never Smoking status: Never smoker Non-prescribed substance use: denies use 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 Known occupational exposures/hazards: No Highest level of school completed/degree received: Master's degree Are you now , , , , never or living with a partner: In a typical week, how many times do you talk on the telephone with family, friends, or neighbors: twice per week How often do you get together with friends or relatives: twice per week How often do you attend anglican or oriental orthodox services: 4 or more times per year Little interest or pleasure in doing things: not at all Feeling down, depressed, or hopeless: not at all Feel stressed/tense/nervous/anxious/difficulty sleeping: only a little Life stressor details: medical issues Gender Identity: female Exam Narrative Exam Narrative: Constituational: Awake/ alert, no apparent distress, well hydrated HENMT: normocephalic, external ears normal, moist oral mucous membranes and oropharynx normal Eyes: PERRL/EOMI and conjunctivae normal Neck: ROM intact Chest: inspection of chest normal Respiratory: Normal respiratory effort, clear to auscultation bilaterally Cardio: regular rate and regular rhythm GI: soft to palpation and non-tender Back: nontender MSK: Nontender, +NVI Skin: no rashes or petechiae Neuro: no focal deficits Psych: mental status grossly normal Constitutional Vital Signs, click to edit/add: Last Vital Signs Temp 97.6 F 03/23/25 19:22 Pulse 79 03/23/25 22:22 Resp 20 03/23/25 22:22 BP 133/74 03/23/25 22:22 Pulse Ox 99 03/23/25 22:22 O2 Del Method Room Air 03/23/25 22:22 Course Vital Signs Vital signs: Vital Signs Blood Pressure 118/73 03/23/25 19:16 Temperature 97.6 F 03/23/25 19:22 Pulse Rate 79 03/23/25 22:22 Respiratory Rate 20 03/23/25 22:22 Blood Pressure 133/74 03/23/25 22:22 Pulse Oximetry 99 03/23/25 22:22 Oxygen Delivery Method Room Air 03/23/25 22:22 Medical Decision Making MDM Narrative Medical decision making narrative: Patient is a nontoxic-appearing 79-year-old female who presented to the ER today for evaluation of concerns for syncopal episode and possible seizure like activity. Initial examination vital signs overall stable on arrival to the ER. It was reported by EMS patient did have SBP in the 60s which she received a liter of IV fluids for. No concerning neurologic or strokelike findings on exam. She does not appear intoxicated or under the influence. She additionally appears euvolemic and did not be exhibiting any ischemic symptoms. Patient is here with her who provided additional history that the patient has had multiple falls over the past few months. He states she was admitted to rehabilitative facility due to fractures in her wrist, shoulder, and hip and following discharge from this facility last month she has had 3 syncopal episodes in total including this evening. CT imaging of head without critical findings. EKG without acute changes and troponin is negative x 1. Labs show no significant leukocytosis, stable anemia with Hgb 11.9, no thrombocytopenia. Electrolytes including renal and hepatic function stable. UA is concerning for UTI as evidenced by presence of leukocytes and bacteria-> patient did receive dose of IVPB ceftriaxone. Urine drug screen is negative. Reevaluation patient remains hemodynamically stable and neurologically intact without any changes in condition. Did discuss patient's condition with Dr. Suazo (hospitalist- [facility]) -> accepts patient for admission. Discussed consideration for Keppra load. Will hold off for now per discussion with the hospitalist. Patient and her updated on the above. Upon the patient's leaving the emergency department he mention the patient has possibly had 20 falls over the past few weeks. Plan to transfer patient to [facility] by nonemergent ground ambulance. Patient in stable condition Medical Records Medical records reviewed: Yes I reviewed the patient's medical records Lab Data Lab results reviewed: Yes I reviewed the patient's lab results Labs: Lab Results 03/23/25 03/23/25 03/23/25 Range/Units 08:10 20:04 20:10 WBC 4.4 (4.0-11.0) 10^3/uL RBC 3.34 L (4.20-5.40) 10^6/uL Hgb 11.6 L (12.0-16.0) g/dL Hct 32.6 L (36.0-48.0) % MCV 97.6 (81.0-99.0) fL MCH 34.7 H (26.7-34.0) pg MCHC 35.6 H (29.9-35.2) g/dL RDW 12.5 (11.0-15.0) % Plt Count 82 L (150-450) 10^3/uL MPV 10.4 (9.5-13.5) fL Neut % (Auto) 68.8 (43.0-75.0) % Lymph % (Auto) 17.4 L (20.5-60.0) % [place] % (Auto) 9.5 (1.7-12.0) % Eos % (Auto) 3.4 (0.9-7.0) % Baso % (Auto) 0.7 (0.2-2.0) % Neut # (Auto) 3.1 (1.4-6.5) 10^3/uL Lymph # (Auto) 0.8 L (1.2-3.8) 10^3/uL [place] # (Auto) 0.4 (0.3-0.8) 10^3/uL Eos # (Auto) 0.2 (0.0-0.7) 10^3/uL Baso # (Auto) 0.0 (0.0-0.1) 10^3/uL Abs Immat Gran (auto) 0.01 (0.00-0.03) 10^3/uL Imm/Tot Granulo (auto) 0.2 (0.0-0.5) % Sodium 140 (136-145) mmol/L Potassium 3.5 (3.5-5.1) mmol/L Chloride 106 (98-107) mmol/L Carbon Dioxide 24.7 (21.0-32.0) mmol/L Anion Gap 12.8 BUN 20.0 H (7.0-18.0) mg/dL Creatinine 1.03 H (0.55-1.02) mg/dL Est GFR ( Amer) >60 (>=60 mL/min/1.73m^2) Est GFR (Non-Af Amer) 51 L (>=60 mL/min/1.73m^2) BUN/Creatinine Ratio 19.4 Glucose 219 H (74-106) mg/dL Calcium 9.1 (8.5-10.1) mg/dL Total Bilirubin 0.4 (0.2-1.0) mg/dL AST 17 (15-37) U/L ALT 20 (14-59) U/L Alkaline Phosphatase 109 (46-116) U/L Troponin I High Sens 13.4 (4.0-51.3) pg/mL Total Protein 6.4 (6.4-8.2) g/dL Albumin 3.4 (3.4-5.0) g/dL Globulin 3.0 g/dL Albumin/Globulin Ratio 1.1 Urine Color Lt. yellow (YELLOW) Urine Clarity Cloudy A (CLEAR) Urine pH 6.0 (5.0-9.0) Ur Specific [place] 1.020 (1.005-1.025) Urine Protein Trace (NEG/TRACE) mg/dL Urine Glucose (UA) Negative (NEGATIVE) mg/dL Urine Ketones Trace A (NEGATIVE) mg/dL Urine Occult Blood Negative (NEGATIVE) Urine Nitrite Negative (NEGATIVE) Urine Bilirubin Small A (NEGATIVE) Urine Urobilinogen 2.0 A (0.2-1.0) EU/dL Ur Leukocyte Esterase Moderate A (NEGATIVE) Urine RBC 0-2 (0-2) #/HPF Urine WBC >100 A (NONE SEEN) #/HPF Ur Squamous Epith Cells Few A (NONE/RARE) #/LPF Urine Crystals None seen (None Seen) #/HPF Urine Bacteria Large A (NONE SEEN) #/HPF Urine Casts Seen A (NONE SEEN) #/LPF Hyaline Casts Rare Fine Granular Casts Rare Urine Mucus Moderate A (NONE SEEN) Ur Culture Indicated? [place] [place] Opiates Screen Negative (NEGATIVE) Ur Buprenorphine Scrn Negative (NEGATIVE) Ur Oxycodone Screen Negative (NEGATIVE) Urine Methadone Screen Negative (NEGATIVE) Ur Barbiturates Screen Negative (NEGATIVE) U Tricyclic Antidepress Negative (NEGATIVE) Ur Phencyclidine Scrn Negative (NEGATIVE) Ur Amphetamines Screen Negative (NEGATIVE) U Methamphetamines Scrn Negative (NEGATIVE) U Benzodiazepines Scrn Negative (NEGATIVE) Urine Cocaine Screen Negative (NEGATIVE) U Cannabinoids Screen Negative (NEGATIVE) Ethanol Quant <3 mg/dL Imaging Data CT scan - head: Attestation: I personally reviewed and interpreted this imaging study as follows: Radiologist's impression: ITS Impressions Head CT 03/23/25 19:53 IMPRESSION: No acute findings. Impression dictated by: Nick Stokes M.D. 03/23/2025 8:56 PM Dictation Location: [place] [address] Electronically authenticated by: [id number] Y Date: 03/23/2025 20:56 ECG Data Attestation: I personally reviewed and interpreted this ECG as follows: (Are with HR 74, no acute/ischemic changes) Discharge Plan Discharge Chief Complaint: Syncope Clinical Impression: Syncopal episodes, Acute UTI Patient Disposition: [facility] Time of Disposition Decision: 21:25 Discharge Location: [facility] Condition: Good Mode of Transportation: EMS Discharge Date/Time: 03/24/25 00:11
[2025-03-23 20:17] LABS: Hematocrit 32.6 % (36.0-48.0); Hemoglobin 11.6 g/dL (12.0-16.0); Immature Granulocytes Abs Auto 0.01 10^3/uL (0.00-0.03); Immature Granulocytes Pct Auto 0.2 % (0.0-0.5); Lymphocytes Absolute Auto 0.8 10^3/uL (1.2-3.8); Mean Corpuscular HGB Conc 35.6 g/dL (29.9-35.2); Mean Corpuscular Hemoglobin 34.7 pg (26.7-34.0); Mean Corpuscular Volume 97.6 fL (81.0-99.0); Platelet Count 82 10^3/uL (150-450); Red Blood Count 3.34 10^6/uL (4.20-5.40); White Blood Count 4.4 10^3/uL (4.0-11.0)
[2025-03-23] MEDS: 0.9 % SODIUM CHLORIDE 1,000 ML 1000 ML IV (20:20)
[2025-03-23 20:24] LABS: Glucose Urine UA NEGATIVE (NEGATIVE)
[2025-03-23 20:31] LABS: Alanine Aminotransferase 20 U/L (14-59); Albumin Globulin Ratio 1.1; Albumin Level 3.4 g/dL (3.4-5.0); Alkaline Phosphatase 109 U/L (46-116); Anion Gap 12.8; Aspartate Amino Transferase 17 U/L (15-37); Blood Urea Nitrogen 20.0 mg/dL (7.0-18.0); Calcium 9.1 mg/dL (8.5-10.1); Carbon Dioxide 24.7 mmol/L (21.0-32.0); Chloride 106 mmol/L (98-107); Estimated GFR (African America >60 (>=60 mL/min/1.73m^2); Estimated GFR (Non-African Ame 51 (>=60 mL/min/1.73m^2); Globulin 3.0 g/dL; Glucose 219 mg/dL (74-106); Potassium 3.5 mmol/L (3.5-5.1); Sodium 140 mmol/L (136-145); Total Protein 6.4 g/dL (6.4-8.2)
[2025-03-23 20:31] LABS: Cannabinoid Screen Urine NEGATIVE (NEGATIVE); Methamphetamines Screen Urine NEGATIVE (NEGATIVE)
[2025-03-23 20:32] LABS: Tricyclic Antidepressant Urine NEGATIVE (NEGATIVE)
[2025-03-23 20:38] LABS: Cast Seen? SEEN #/LPF (NONE SEEN); Crystals Seen? None Seen #/HPF (None Seen); Urine Culture Indicated YES-FRMC
== END 2025-03-24 00:11 | disposition short-term general hospital (02) ==
PROVIDERS: Nurse Practitioner; Emergency Provider Internal Medicine; PCP Family Medicine
DX: R55 Syncope and collapse (principal); N39.0 Urinary tract infection, site not specified; R53.1 Weakness
CPT/HCPCS: 36415; 70450; 80053; 80307; 80320; 81001; 84484; 85025; 87086; 87088; 87186; 93005; 96361; 96365; 99285; J0696